=== PATIENT | female | born 1950 | race Caucasian/White ===

== ENCOUNTER → 2020-07-22 11:05 | Outpatient (BNVA) | payer MEDICARE, BC, SELFPAY | PROVIDERS: Family Provider Family Medicine; Referring Provider Family Medicine; Visit Provider Internal Medicine | DX: E11.40 Type 2 diabetes mellitus with diabetic neuropathy, unspecified (principal); E11.65 Type 2 diabetes mellitus with hyperglycemia; E03.9 Hypothyroidism, unspecified; R74.0 Nonspecific elevation of levels of transaminase and lactic acid dehydrogenase [LDH] | CPT/HCPCS: 36415; 84439; 84443; 99204 ==

== ENCOUNTER 2020-07-22 12:11 | Outpatient (CLI) | payer MEDICARE, BC, SELFPAY ==
[2020-07-22 13:10] LABS: Free T4 Free Thyroxine 1.25 ng/dL (0.82-1.77); Thyroid Stimulating Hormone 0.15 uIU/mL (0.27-4.20)
== END 2020-07-22 12:12 | disposition home or self-care (01) ==
LOC: LAB 12:18
PROVIDERS: PCP Family Medicine; Visit Provider Internal Medicine
DX: E11.40 Type 2 diabetes mellitus with diabetic neuropathy, unspecified (principal); E11.65 Type 2 diabetes mellitus with hyperglycemia
CPT/HCPCS: 36415; 84439; 84443

== ENCOUNTER 2020-08-24 11:56 | Emergency (ER) | payer MEDICARE, BC, SELFPAY ==
[2020-08-24 12:12] VITALS: BP 110/77; PULSE 112; RESP 14; TEMP 37.2; O2SAT 95; BMI 33.3
--- NOTE | 2020-08-24 13:16 | W.ED.GENADLT ---
Documented by User: Bailey Snell 08/24/20 16:54 HPI - General Adult General: Chief complaint: General Medical Stated complaint: ACHING DOWN L SIDE BODY Time Seen by Provider: 08/24/20 13:03 Source: patient Mode of arrival: ambulatory Limitations: no limitations History of Present Illness: HPI narrative: 69-year-old female patient presents to the emergency department complaining of pain to her left side. Patient states it starts in her shoulder and goes all the way down to her ankle. Patient states she has a burning sensation to the back of her left leg. Patient also complains of low back pain. Patient denies any injury or trauma. Patient states is been like this for a few weeks and is just progressively gotten worse. Patient denies fever. Patient denies IV drug abuse. Patient denies history of cancer. Patient denies loss of bowel or bladder. Patient denies any numbness or tingling. Associated symptoms: Deny chest pain, dyspnea, headache(s), nausea, rash, palpitations, syncope or vomiting Review of Systems General: Reports: 10 or more systems reviewed and unremarkable except in HPI and below Const: Denies: fever(s) or chills Eyes: Denies: change in vision Card: Denies: chest pain, palpitations, irregular heart rhythm, lightheadedness or syncope Resp: Denies: dyspnea, productive cough, non-productive cough, wheezing or pain on inspiration GI: Denies: abdominal pain, nausea, vomiting, dysphagia, diarrhea or constipation : Denies: flank pain, difficulty voiding, dysuria, urinary frequency or urinary urgency Musc: Reports: back pain and extremity pain Skin/Breast: Denies: rash Neuro: Denies: headache(s) or numbness in extremities Psych: Denies: anxiety, suicidal ideation or homicidal ideation COUNT INCLUDES THE [facility] ED PFSH: Medical History Diabetes Hypothyroid Ovarian cancer Surgical History H/O: hysterectomy History of tonsillectomy Hx of appendectomy Hx of cholecystectomy Family History Sister Cancer uterine/cervix Mother Cancer cervix Social History Smoking and tobacco status: never smoked Alcohol intake: never Physical Exam Const: COMMON NORMALS: no acute distress, average body habitus, patient oriented x3, no limitations, healthy appearing, alert and well nourished HENMT: COMMON NORMALS: normocephalic, atraumatic, hearing grossly normal bilaterally, external ears normal, EAC's normal, TM's normal bilaterally, Normal external nose present, Normal nasal mucous membranes and turbinates present, moist oral mucous membranes, oropharynx normal, dentition normal and gingiva normal HEAD & SCALP: normocephalic and atraumatic NOSE: Normal external nose present and Normal nasal mucous membranes and turbinates present EXTERNAL EAR: Yes external ears normal EXTERNAL AUDITORY CANAL: EAC's normal TYMPANIC MEMBRANE: TM's normal bilaterally Neck/C-Spine: COMMON NORMALS: full ROM, no lymphadenopathy, supple, no meningeal signs, Thyroid normal and No carotid bruits THYROID: Thyroid normal Chest: COMMONS NORMALS: normal inspection of the chest, normal palpation of entire chest wall, normal inspection of the breasts and normal palpation of the breasts Cardio: COMMON NORMALS: regular rate and regular rhythm RATE: regular rate RHYTHM: regular rhythm GI: COMMON NORMALS: Normal to inspection, nondistended, normoactive bowel sounds present, Soft to palpation, non-tender, No hepatosplenomegaly present, no masses and no bruits PALPATION: Yes Soft to palpation and Yes No hepatosplenomegaly present : COMMON NORMALS: Yes no CVA tenderness BLADDER/KIDNEY EXAM: Yes no CVA tenderness and No CVA tenderness Back/Pelvis: COMMON NORMALS: no CVA tenderness, thoracic and lumbar spine normal to inspection and thoraco-lumbar ROM normal GENERAL BACK: No CVA tenderness LUMBAR SPINE/LOWER BACK: Yes normal to inspection, Yes lumbar ROM normal, Yes pain with ROM, No lumbar spinal tenderness, Yes paraspinal muscle tenderness and Yes paraspinal muscle spasm Extremity: COMMON NORMALS: normal to inspection, full ROM, capillary refill normal, no joint enlargement, no clubbing, cyanosis or edema, no calf tenderness and no pedal edema Neuro: COMMON NORMALS: patient oriented x3 SENSORIUM/ORIENTATION: Yes alert MENINGEAL SIGNS: Yes no meningeal signs Psych: COMMON NORMALS: mental status grossly normal, Normal thought process present, cooperative, normal affect, speech normal, activity/motor behavior normal, denies hallucinations, denies homicidal ideation and denies suicidal ideation SPEECH: Yes normal speech THOUGHT PROCESS: Normal thought process present Skin: COMMON NORMALS: no rashes or lesions noted, no wounds, turgor normal, no jaundice, no petechiae and no mottling GENERAL SKIN EXAM: no rashes or lesions noted and turgor normal Course ED course: Report given to jocelin asencio assumed care at this time Vital Signs: Vital signs: Vital Signs Temperature 98.9 F 08/24/20 12:12 Pulse Rate 86 08/24/20 18:06 Respiratory Rate 18 08/24/20 18:06 Blood Pressure 110/77 08/24/20 12:12 Pulse Oximetry 99 08/24/20 18:06 MDM - General Adult Lab Data: Labs: Lab Results 08/24/20 08/24/20 08/24/20 Range/Units 13:30 14:25 14:25 WBC 7.0 (4.0-10.0) 10^3/ uL RBC 4.72 (4.1-5.3) 10^6/u L Hgb 14.1 (11.5-15.3) g/dL Hct 42.4 (37.0-47.0) % MCV 89.8 (81-99) fL MCH 29.9 (28.0-34.0) pg MCHC 33.3 (30.0-36.0) g/dL RDW 11.3 L (12.1-15.1) % Plt Count 243 (130-400) 10^3/c mm MPV 10.6 H (7.4-10.4) fL Neut % (Auto) 69.2 % Lymph % (Auto) 22.9 % [place] % (Auto) 4.7 % Eos % (Auto) 2.3 % Baso % (Auto) 0.6 % Neut # (Auto) 4.84 (1.8-7.7) 10^3/u L Lymph # (Auto) 1.6 (0.8-4.8) 10^3/u L [place] # (Auto) 0.3 (0.2-0.9) 10^3/u L Eos # (Auto) 0.2 (0.0-0.8) 10^3/u L Baso # (Auto) 0.0 (0.0-0.1) 10^3/u L Nucleated RBC % (a uto) 0 % Nucleated RBCs # 0.0 /100WBC Sodium 132 L (136-145) mmol/L Potassium 4.3 (3.5-5.1) mmol/L Chloride 97 L (98-107) mmol/L Carbon Dioxide 23 (22-29) mmol/L Anion Gap 16.3 (5-19) BUN 12 (8-23) mg/dL Creatinine 0.7 (0.5-0.9) mg/dL GFR Calculation 83.2 L (90-130) mL/min Glucose 492 H (65-115) mg/dL Calculated Osmolal ity 296 H (285-295) mOsm/k g Calcium 9.8 (8.5-10.5) mg/dL Total Bilirubin 0.3 (0.15-1.2) mg/dL AST 12 (0-32) U/L ALT 17 (0-33) U/L Alkaline Phosphata se 129 H (35-105) IU/L Total Protein 6.6 (6.6-8.7) g/dL Albumin 3.9 (3.5-5.2) g/dL Globulin 2.7 (1.3-4.6) g/dL Urine Color Yellow (Yellow) Urine Appearance Sl hazy (CLEAR) Urine pH 5 (5-7) Ur Specific Gravit y 1.005 (1.005-1.030) Urine Protein Neg (Negative) Urine Glucose (UA) 4+ H (Normal) Urine Ketones Negative (Negative) Urine Blood Neg (Negative) Urine Nitrate Negative (Negative) Urine Bilirubin Neg (Negative) Urine Urobilinogen Norm (Negative) mg/dL Ur Leukocyte Barbara ase Negative (Negative) Urine RBC None (0-2) /hpf Urine WBC None (0-5) /hpf Ur Squamous Epith Cells 0-4 H (0-5) /hpf Amorphous Sediment Trace /hpf Urine Bacteria Trace (NONE) /hpf Discharge Plan Discharge Patient Disposition: Home 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MEDSUPPLY Qty: 60 RF: 3 zolpidem 10 mg tablet 10 mg PO BEDTIME RF: 0 Discharge Orders: Discharge Order (Routine); Ordered 08/24/20 Ordered By: Jocelin Asencio Referrals: William Chan MD [Primary Care Provider] - Discharge Diet: As Directed and Diabetic Discharge Activity: Increase activity as tolerated Patient Instructions: Hyperglycemia Activity Restrictions/Additional Instructions: Follow-up with medical provider as directed. Take medications. Return to the ER or your medical provider if condition worsens. Please read and understand discharge instructions. If any questions ask please. Discharge Date/Time: 08/24/20 18:06 Coding Level of Care Code ED Fish Cleaner for Chg Fwd Exam Comprehensive Documented by User: CRISTA Duffy 08/24/20 21:28 HPI - General Adult General: Chief complaint: General Medical Stated complaint: ACHING DOWN L SIDE BODY Time Seen by Provider: 08/24/20 13:03 PFSH ED PFSH: Medical History Diabetes Hypothyroid Ovarian cancer Surgical History H/O: hysterectomy History of tonsillectomy Hx of appendectomy Hx of cholecystectomy Family History Sister Cancer uterine/cervix Mother Cancer cervix Social History Smoking and tobacco status: never smoked Alcohol intake: never Course Vital Signs: Vital signs: Vital Signs Temperature 98.9 F 08/24/20 12:12 Pulse Rate 86 08/24/20 18:06 Respiratory Rate 18 08/24/20 18:06 Blood Pressure 110/77 08/24/20 12:12 Pulse Oximetry 99 08/24/20 18:[address] [facility] - General Adult Lab Data: Labs: Lab Results 08/24/20 08/24/20 08/24/20 Range/Units 13:30 14:25 14:25 WBC 7.0 (4.0-10.0) 10^3/ uL RBC 4.72 (4.1-5.3) 10^6/u L Hgb 14.1 (11.5-15.3) g/dL Hct 42.4 (37.0-47.0) % MCV 89.8 (81-99) fL MCH 29.9 (28.0-34.0) pg MCHC 33.3 (30.0-36.0) g/dL RDW 11.3 L (12.1-15.1) % Plt Count 243 (130-400) 10^3/c mm MPV 10.6 H (7.4-10.4) fL Neut % (Auto) 69.2 % Lymph % (Auto) 22.9 % [place] % (Auto) 4.7 % Eos % (Auto) 2.3 % Baso % (Auto) 0.6 % Neut # (Auto) 4.84 (1.8-7.7) 10^3/u L Lymph # (Auto) 1.6 (0.8-4.8) 10^3/u L [place] # (Auto) 0.3 (0.2-0.9) 10^3/u L Eos # (Auto) 0.2 (0.0-0.8) 10^3/u L Baso # (Auto) 0.0 (0.0-0.1) 10^3/u L Nucleated RBC % (a uto) 0 % Nucleated RBCs # 0.0 /100WBC Sodium 132 L (136-145) mmol/L Potassium 4.3 (3.5-5.1) mmol/L Chloride 97 L (98-107) mmol/L Carbon Dioxide 23 (22-29) mmol/L Anion Gap 16.3 (5-19) BUN 12 (8-23) mg/dL Creatinine 0.7 (0.5-0.9) mg/dL GFR Calculation 83.2 L (90-130) mL/min Glucose 492 H (65-115) mg/dL Calculated Osmolal ity 296 H (285-295) mOsm/k g Calcium 9.8 (8.5-10.5) mg/dL Total Bilirubin 0.3 (0.15-1.2) mg/dL AST 12 (0-32) U/L ALT 17 (0-33) U/L Alkaline Phosphata se 129 H (35-105) IU/L Total Protein 6.6 (6.6-8.7) g/dL Albumin 3.9 (3.5-5.2) g/dL Globulin 2.7 (1.3-4.6) g/dL Urine Color Yellow (Yellow) Urine Appearance Sl hazy (CLEAR) Urine pH 5 (5-7) Ur Specific Gravit y 1.005 (1.005-1.030) Urine Protein Neg (Negative) Urine Glucose (UA) 4+ H (Normal) Urine Ketones Negative (Negative) Urine Blood Neg (Negative) Urine Nitrate Negative (Negative) Urine Bilirubin Neg (Negative) Urine Urobilinogen Norm (Negative) mg/dL Ur Leukocyte Barbara ase Negative (Negative) Urine RBC None (0-2) /hpf Urine WBC None (0-5) /hpf Ur Squamous Epith Cells 0-4 H (0-5) /hpf Amorphous Sediment Trace /hpf Urine Bacteria Trace (NONE) /hpf Discharge Plan Discharge Patient Disposition: Home 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MEDSUPPLY Qty: 60 RF: 3 zolpidem 10 mg tablet 10 mg PO BEDTIME RF: 0 Discharge Orders: Discharge Order (Routine); Ordered 08/24/20 Ordered By: Jocelin Asencio Referrals: William Chan MD [Primary Care Provider] - Discharge Diet: As Directed and Diabetic Discharge Activity: Increase activity as tolerated Patient Instructions: Hyperglycemia Activity Restrictions/Additional Instructions: Follow-up with medical provider as directed. Take medications. Return to the ER or your medical provider if condition worsens. Please read and understand discharge instructions. If any questions ask please. Discharge Date/Time: 08/24/20 18:06 Coding Level of Care Code ED Fish Cleaner for Chg Fwd Exam Comprehensive
[2020-08-24] MEDS: dexamethasone 10 mg/mL INJ IM (13:20)
[2020-08-24] MEDS: orphenadrine 30 mg/mL Inj 2 mL 60 MG IM (13:20)
[2020-08-24] MEDS: ketorolac 30 mg/mL INJ IM (13:20)
[2020-08-24] MEDS: ondansetron 4 MG Tablet PO (13:33)
[2020-08-24 14:30] LABS: Add Urine Microscopic? YES; Bilirubin Urine Neg (Negative); Blood Urine Neg (Negative); Glucose Urine UA 4+ (Normal); Ketones Urine Negative (Negative); Leukocyte Esterase Urine Negative (Negative); Nitrate Urine Negative (Negative); Protein Urine Neg (Negative); Specific Gravity, Urine 1.005 (1.005-1.030); Urine Appearance SL Hazy (CLEAR); Urine Color Yellow (Yellow); Urobilinogen Urine Norm (Negative); pH Urine 5 (5-7)
[2020-08-24 14:33] LABS: Add Urine Culture? No; Amorphous Sediment Urine TRACE /hpf; Bacteria Urine TRACE /hpf; Squamous Epithelial Cell Urine 0-4 /hpf (0-5)
[2020-08-24 14:35] LABS: Basophils % 0.6 %; Eosinophils # 0.2 10^3/uL (0.0-0.8); Eosinophils % 2.3 %; Hematocrit 42.4 % (37.0-47.0); Hemoglobin 14.1 g/dL (11.5-15.3); Lymphocytes # 1.6 10^3/uL (0.8-4.8); Lymphocytes % 22.9 %; Mean Corpuscular HGB Conc 33.3 g/dL (30.0-36.0); Mean Corpuscular Hemoglobin 29.9 pg (28.0-34.0); Mean Corpuscular Volume 89.8 fL (81-99); Mean Platelet Volume 10.6 fL (7.4-10.4); Monocytes # 0.3 10^3/uL (0.2-0.9); Monocytes % 4.7 %; Neutrophils # 4.84 10^3/uL (1.8-7.7); Neutrophils % 69.2 %; Nucleated Red Blood Cells % 0 %; Platelet Count 243 10^3/cmm (130-400); Red Blood Count 4.72 10^6/uL (4.1-5.3); Red Cell Distribution Width 11.3 % (12.1-15.1)
[2020-08-24 14:54] LABS: Alanine Aminotransferase 17 U/L (0-33); Albumin Level 3.9 g/dL (3.5-5.2); Alkaline Phosphatase 129 IU/L (35-105); Anion Gap 16.3 (5-19); Aspartate Amino Transferase 12 U/L (0-32); Blood Urea Nitrogen 12 mg/dL (8-23); Calcium 9.8 mg/dL (8.5-10.5); Carbon Dioxide 23 mmol/L (22-29); Chloride 97 mmol/L (98-107); Creatinine Clr Calc Pharmacy 74.8927; Globulin 2.7 g/dL (1.3-4.6); Glomerular Filtration Rate 83.2 mL/min (90-130); Glucose 492 mg/dL (65-115); Osmolality Calculated 296 mOsm/kg (285-295); Potassium 4.3 mmol/L (3.5-5.1); Sodium 132 mmol/L (136-145); Total Bilirubin 0.3 mg/dL (0.15-1.2); Total Protein 6.6 g/dL (6.6-8.7)
[2020-08-24] MEDS: sodium chloride 0.9% 1,000 ML 999 ML IV (15:27)
--- NOTE | 2020-08-24 17:35 | ED_ITS ---
HPI - General Adult General: Chief complaint: General Medical Stated complaint: ACHING DOWN L SIDE BODY Time Seen by Provider: 08/24/20 13:03 Source: patient Mode of arrival: ambulatory Limitations: no limitations PFSH ED PFSH: Medical History Diabetes Hypothyroid Ovarian cancer Surgical History H/O: hysterectomy History of tonsillectomy Hx of appendectomy Hx of cholecystectomy Family History Sister Cancer uterine/cervix Mother Cancer cervix Social History Smoking and tobacco status: never smoked Alcohol intake: never Course Vital Signs: Vital signs: Vital Signs Temperature 98.9 F 08/24/20 12:12 Pulse Rate 86 08/24/20 18:06 Respiratory Rate 18 08/24/20 18:06 Blood Pressure 110/77 08/24/20 12:12 Pulse Oximetry 99 08/24/20 18:06 MDM - General Adult MDM Narrative: Medical decision making narrative: See review of systems physical exam per Bailey Del Castillo FACING SLITTER. Patient requesting go home patient feels much better. Lab Data: Labs: Lab Results 08/24/20 08/24/20 08/24/20 Range/Units 13:30 14:25 14:25 WBC 7.0 (4.0-10.0) 10^3/ uL RBC 4.72 (4.1-5.3) 10^6/u L Hgb 14.1 (11.5-15.3) g/dL Hct 42.4 (37.0-47.0) % MCV 89.8 (81-99) fL MCH 29.9 (28.0-34.0) pg MCHC 33.3 (30.0-36.0) g/dL RDW 11.3 L (12.1-15.1) % Plt Count 243 (130-400) 10^3/c mm MPV 10.6 H (7.4-10.4) fL Neut % (Auto) 69.2 % Lymph % (Auto) 22.9 % [place] % (Auto) 4.7 % Eos % (Auto) 2.3 % Baso % (Auto) 0.6 % Neut # (Auto) 4.84 (1.8-7.7) 10^3/u L Lymph # (Auto) 1.6 (0.8-4.8) 10^3/u L [place] # (Auto) 0.3 (0.2-0.9) 10^3/u L Eos # (Auto) 0.2 (0.0-0.8) 10^3/u L Baso # (Auto) 0.0 (0.0-0.1) 10^3/u L Nucleated RBC % (a uto) 0 % Nucleated RBCs # 0.0 /100WBC Sodium 132 L (136-145) mmol/L Potassium 4.3 (3.5-5.1) mmol/L Chloride 97 L (98-107) mmol/L Carbon Dioxide 23 (22-29) mmol/L Anion Gap 16.3 (5-19) BUN 12 (8-23) mg/dL Creatinine 0.7 (0.5-0.9) mg/dL GFR Calculation 83.2 L (90-130) mL/min Glucose 492 H (65-115) mg/dL Calculated Osmolal ity 296 H (285-295) mOsm/k g Calcium 9.8 (8.5-10.5) mg/dL Total Bilirubin 0.3 (0.15-1.2) mg/dL AST 12 (0-32) U/L ALT 17 (0-33) U/L Alkaline Phosphata se 129 H (35-105) IU/L Total Protein 6.6 (6.6-8.7) g/dL Albumin 3.9 (3.5-5.2) g/dL Globulin 2.7 (1.3-4.6) g/dL Urine Color Yellow (Yellow) Urine Appearance Sl hazy (CLEAR) Urine pH 5 (5-7) Ur Specific Gravit y 1.005 (1.005-1.030) Urine Protein Neg (Negative) Urine Glucose (UA) 4+ H (Normal) Urine Ketones Negative (Negative) Urine Blood Neg (Negative) Urine Nitrate Negative (Negative) Urine Bilirubin Neg (Negative) Urine Urobilinogen Norm (Negative) mg/dL Ur Leukocyte Barbara ase Negative (Negative) Urine RBC None (0-2) /hpf Urine WBC None (0-5) /hpf Ur Squamous Epith Cells 0-4 H (0-5) /hpf Amorphous Sediment Trace /hpf Urine Bacteria Trace (NONE) /hpf Discharge Plan Discharge Patient Disposition: Home 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MEDSUPPLY Qty: 60 RF: 3 zolpidem 10 mg tablet 10 mg PO BEDTIME RF: 0 Discharge Orders: Discharge Order (Routine); Ordered 08/24/20 Ordered By: Aniceto Varela Referrals: William Chan MD [Primary Care Provider] - Discharge Diet: As Directed and Diabetic Discharge Activity: Increase activity as tolerated Patient Instructions: Hyperglycemia Activity Restrictions/Additional Instructions: Follow-up with medical provider as directed. Take medications. Return to the ER or your medical provider if condition worsens. Please read and understand discharge instructions. If any questions ask please. Discharge Date/Time: 08/24/20 18:06 Coding Level of Care Code ED Therapist Radiation for Dev Flood
[2020-08-24 18:06] VITALS: PULSE 86; RESP 18; O2SAT 99
== END 2020-08-24 18:06 | disposition home or self-care (01) ==
PROVIDERS: Registered Nurse; Emergency Provider Nurse Practitioner Family; PCP Family Medicine
DX: E11.40 Type 2 diabetes mellitus with diabetic neuropathy, unspecified (principal); Z79.82 Long term (current) use of aspirin; Z79.4 Long term (current) use of insulin; Z85.43 Personal history of malignant neoplasm of ovary
CPT/HCPCS: 12345; 80053; 81001; 85025; 96360; 96372; 99283; J1100; J1885; J2360; J7030; Q0162

== ENCOUNTER 2020-11-13 15:55 | Emergency (ER) | payer MEDICARE, BC, SELFPAY ==
[2020-11-13 16:01] VITALS: BP 134/82; PULSE 88; RESP 18; TEMP 37.1; O2SAT 94; BMI 29.9
[2020-11-13 16:31] LABS: Basophils # 0.1 10^3/uL (0.0-0.1); Basophils % 0.7 %; Eosinophils # 0.2 10^3/uL (0.0-0.8); Eosinophils % 3.1 %; Hematocrit 42.7 % (37.0-47.0); Hemoglobin 13.8 g/dL (11.5-15.3); Lymphocytes % 29.8 %; Mean Corpuscular HGB Conc 32.3 g/dL (30.0-36.0); Mean Corpuscular Hemoglobin 29.6 pg (28.0-34.0); Mean Corpuscular Volume 91.6 fL (81-99); Mean Platelet Volume 10.3 fL (7.4-10.4); Monocytes # 0.5 10^3/uL (0.2-0.9); Monocytes % 7.5 %; Neutrophils # 3.93 10^3/uL (1.8-7.7); Neutrophils % 58.9 %; Nucleated Red Blood Cells % 0 %; Platelet Count 227 10^3/cmm (130-400); Red Blood Count 4.66 10^6/uL (4.1-5.3); Red Cell Distribution Width 11.9 % (12.1-15.1); White Blood Count 6.7 10^3/uL (4.0-10.0)
[2020-11-13 16:48] LABS: Alanine Aminotransferase 15 U/L (0-33); Albumin Level 4.2 g/dL (3.5-5.2); Alkaline Phosphatase 155 IU/L (35-105); Aspartate Amino Transferase 12 U/L (0-32); Blood Urea Nitrogen 11 mg/dL (8-23); Calcium 9.8 mg/dL (8.5-10.5); Carbon Dioxide 28 mmol/L (22-29); Chloride 100 mmol/L (98-107); Globulin 2.5 g/dL (1.3-4.6); Glomerular Filtration Rate 99.4 mL/min (90-130); Osmolality Calculated 308 mOsm/kg (285-295); Sodium 137 mmol/L (136-145); Total Bilirubin 0.4 mg/dL (0.15-1.2); Total Protein 6.7 g/dL (6.6-8.7)
[2020-11-13 16:49] VITALS: BP 158/88; PULSE 83; RESP 16; O2SAT 93
[2020-11-13 16:51] LABS: Anion Gap 13.1 (5-19); Potassium 4.1 mmol/L (3.5-5.1); Troponin(5th) Baseline 10 ng/L (0-10)
[2020-11-13 16:52] LABS: Glucose 536 mg/dL (65-115)
--- NOTE | 2020-11-13 17:06 | XRR_ITS ---
PROCEDURE INFORMATION: Exam: XR Chest, 1 View Exam date and time: 11/13/2020 5:33 PM Age: 69 years old Clinical indication: Chest pain; Type not specified TECHNIQUE: Imaging protocol: XR of the chest Views: 1 view. COMPARISON: No relevant prior studies available. FINDINGS: Lungs: Unremarkable. No consolidation. Pleural space: Unremarkable. No pleural effusion. No pneumothorax. Heart/Mediastinum: Unremarkable. No cardiomegaly. Bones/joints: Unremarkable. XR/XR chest 1V portable [id number] IMPRESSION: No acute findings.
--- NOTE | 2020-11-13 17:23 | W.ED.CHESTPA ---
Documented by User: Slava Cain DO 11/15/20 05:59 HPI - Chest Pain General: Chief Complaint: Chest Pain Stated Complaint: Chest pain Time Seen by Provider: 11/13/20 16:12 History of Present Illness: HPI narrative: 69-year-old female presents emergency room with complaint of left-sided chest pain radiating down the left arm and left jaw she had nausea diaphoresis and shortness of breath with it she did take 3 or 4 325 mg of aspirin. She did have some indigestion after doing that while she was at home the pain is quite severe now she states it is only into it. She has no known history of heart disease she does have multiple risk factors including diabetes hypertension and obesity. Interestingly chest pain is also mildly reproducible across the left side of the chest. But felt by palpation there is no radiation of the chest discomfort. MD complaint: chest pain Onset (ago): hour(s) Timing of current episode: constant Prior episodes: No Onset: during exertion (Mild exertion) Pain location: left chest Pain radiation: left arm, neck and jaw/teeth Severity: severe Quality: tightness and sharp Relieving factors: rest Exacerbating factors: nothing Associated symptoms: Reports diaphoresis, dyspnea and nausea; Deny abdominal pain, fever(s), leg edema, palpitations, sense of impending doom, syncope or vomiting Treatment prior to arrival: aspirin Review of Systems Const: Reports: diaphoresis; Denies: fever(s) ENMT: Denies: throat pain, ear or mastoid pain, nasal discharge or nasal congestion Card: Denies: palpitations or syncope Resp: Reports: dyspnea GI: Reports: nausea; Denies: abdominal pain or vomiting : Denies: flank pain, difficulty voiding, dysuria, urinary frequency or urinary urgency Skin/Breast: Denies: rash or pruritus PFS ED PFSH: Medical History (Updated 11/13/20 @ 19:25 by Thom De La Cruz MD) Diabetes Hypothyroid Ovarian cancer Uncontrolled type 2 diabetes with neuropathy Surgical History H/O: hysterectomy History of tonsillectomy Hx of appendectomy Hx of cholecystectomy Family History Sister Cancer uterine/cervix Mother Cancer cervix Social History Smoking and tobacco status: never smoked Alcohol intake: never Physical Exam Const: COMMON NORMALS: no acute distress GENERAL APPEARANCE: cooperative and comfortable ORIENTATION/CONSCIOUSNESS: Yes awake, Yes oriented to person, Yes oriented to place and Yes oriented to time HENMT: COMMON NORMALS: normocephalic, atraumatic, hearing grossly normal bilaterally, external ears normal, EAC's normal, TM's normal bilaterally, Normal nasal mucous membranes and turbinates present, moist oral mucous membranes and oropharynx normal HEAD & SCALP: normocephalic and atraumatic NOSE: Normal nasal mucous membranes and turbinates present EXTERNAL EAR: Yes external ears normal EXTERNAL AUDITORY CANAL: EAC's normal TYMPANIC MEMBRANE: TM's normal bilaterally Eye: COMMON NORMALS: Equal, round and reactive pupils present, EOMs intact bilaterally, conjunctivae normal and no scleral icterus CONJUNCTIVA: Yes conjunctivae normal PUPIL: Yes Equal, round and reactive pupils present Neck/C-Spine: COMMON NORMALS: full ROM, no lymphadenopathy, supple and no JVD Lymph: LYMPHATIC: no lymphadenopathy noted and no lymphedema noted Resp: COMMON NORMALS: normal respiratory effort, No retractions, No use of accessory muscles and clear to auscultation bilaterally AUSCULTATION: clear to auscultation bilaterally Cardio: COMMON NORMALS: no JVD, regular rate, regular rhythm and No murmurs present (Cardio) RATE: regular rate RHYTHM: regular rhythm GI: COMMON NORMALS: Soft to palpation and No hepatosplenomegaly present AUSCULTATION: Yes normoactive bowel sounds PALPATION: Yes Soft to palpation, No Tenderness to palpation present (GI), No Guarding due to palpation present (GI) and Yes No hepatosplenomegaly present Extremity: COMMON NORMALS: normal to inspection, capillary refill normal, no clubbing, cyanosis or edema, no calf tenderness and no pedal edema Neuro: SENSORIUM/ORIENTATION: Yes oriented to person, Yes oriented to place and Yes oriented to time Skin: COMMON NORMALS: no rashes or lesions noted GENERAL SKIN EXAM: no rashes or lesions noted Course Vital Signs: Vital signs: Vital Signs Temperature 98.8 F 11/13/20 16:01 Pulse Rate 78 11/13/20 19:51 Respiratory Rate 16 11/13/20 19:51 Blood Pressure 139/78 11/13/20 19:51 Pulse Oximetry 98 11/13/20 19:51 MDM - Chest Pain MDM Narrative: Medical decision making narrative: Care turned over to Dr. Dallas at change of shift see his note for final diagnosis and disposition Lab Data: Labs: Lab Results 11/13/20 11/13/20 11/13/20 Range/Units 16:22 16:22 16:22 WBC 6.7 (4.0-10.0) 10^3/ uL RBC 4.66 (4.1-5.3) 10^6/u L Hgb 13.8 (11.5-15.3) g/dL Hct 42.7 (37.0-47.0) % MCV 91.6 (81-99) fL MCH 29.6 (28.0-34.0) pg MCHC 32.3 (30.0-36.0) g/dL RDW 11.9 L (12.1-15.1) % Plt Count 227 (130-400) 10^3/c mm MPV 10.3 (7.4-10.4) fL Neut % (Auto) 58.9 % Lymph % (Auto) 29.8 % [place] % (Auto) 7.5 % Eos % (Auto) 3.1 % Baso % (Auto) 0.7 % Neut # (Auto) 3.93 (1.8-7.7) 10^3/u L Lymph # (Auto) 2.0 (0.8-4.8) 10^3/u L [place] # (Auto) 0.5 (0.2-0.9) 10^3/u L Eos # (Auto) 0.2 (0.0-0.8) 10^3/u L Baso # (Auto) 0.1 (0.0-0.1) 10^3/u L Nucleated RBC % (a uto) 0 % Nucleated RBCs # 0.0 /100WBC Sodium 137 (136-145) mmol/L Potassium 4.1 (3.5-5.1) mmol/L Chloride 100 (98-107) mmol/L Carbon Dioxide 28 (22-29) mmol/L Anion Gap 13.1 (5-19) BUN 11 (8-23) mg/dL Creatinine 0.6 (0.5-0.9) mg/dL GFR Calculation 99.4 (90-130) mL/min Glucose 536 H* (65-115) mg/dL POC Glucose (70-110) mg/dL Calculated Osmolal ity 308 H (285-295) mOsm/k g Calcium 9.8 (8.5-10.5) mg/dL Total Bilirubin 0.4 (0.15-1.2) mg/dL AST 12 (0-32) U/L ALT 15 (0-33) U/L Alkaline Phosphata se 155 H (35-105) IU/L Troponin T Baselin e 10 (0-10) ng/L Troponin T 120 Min [place] (0-10) ng/L Delta Troponin T (0-10) ABS# Total Protein 6.7 (6.6-8.7) g/dL Albumin 4.2 (3.5-5.2) g/dL Globulin 2.5 (1.3-4.6) g/dL 11/13/20 11/13/20 Range/Units 18:22 19:05 WBC (4.0-10.0) 10^3/ uL RBC (4.1-5.3) 10^6/u L Hgb (11.5-15.3) g/dL Hct (37.0-47.0) % MCV (81-99) fL MCH (28.0-34.0) pg MCHC (30.0-36.0) g/dL RDW (12.1-15.1) % Plt Count (130-400) 10^3/c mm MPV (7.4-10.4) fL Neut % (Auto) % Lymph % (Auto) % [place] % (Auto) % Eos % (Auto) % Baso % (Auto) % Neut # (Auto) (1.8-7.7) 10^3/u L Lymph # (Auto) (0.8-4.8) 10^3/u L [place] # (Auto) (0.2-0.9) 10^3/u L Eos # (Auto) (0.0-0.8) 10^3/u L Baso # (Auto) (0.0-0.1) 10^3/u L Nucleated RBC % (a uto) % Nucleated RBCs # /100WBC Sodium (136-145) mmol/L Potassium (3.5-5.1) mmol/L Chloride (98-107) mmol/L Carbon Dioxide (22-29) mmol/L Anion Gap (5-19) BUN (8-23) mg/dL Creatinine (0.5-0.9) mg/dL GFR Calculation (90-130) mL/min Glucose (65-115) mg/dL POC Glucose 231 H (70-110) mg/dL Calculated Osmolal ity (285-295) mOsm/k g Calcium (8.5-10.5) mg/dL Total Bilirubin (0.15-1.2) mg/dL AST (0-32) U/L ALT (0-33) U/L Alkaline Phosphata se (35-105) IU/L Troponin T Baselin e (0-10) ng/L Troponin T 120 [place] 24.95 H (0-10) ng/L Delta Troponin T 14.95 H* (0-10) ABS# Total Protein (6.6-8.7) g/dL Albumin (3.5-5.2) g/dL Globulin (1.3-4.6) g/dL Discharge Plan Discharge Patient Disposition: Left Against Medical Advice Clinical Impression: Non-ST elevation IA (NSTEMI) Condition: Stable Prescriptions: No Action pantoprazole 20 mg tablet,delayed release (DR/EC) 20 mg PO DAILY@07 RF: 0 (DME) blood-glucose meter Misc See Rx Instructions .ROUTE .MEDSUPPLY Qty: 1 RF: 0 (DME) Advocate Redi-Code Strip See Rx Instructions .ROUTE .MEDSUPPLY Qty: 60 RF: 3 levothyroxine 175 mcg tablet 175 mcg PO DAILY@07 RF: 0 aspirin 325 mg Tablet 325 mg PO PRN RF: 0 hydrocodone-acetaminophen 10-325 mg tablet 1 tab PO Q6H PRN (Reason: Pain) RF: 0 baclofen 10 mg tablet 10 mg PO BID PRN (Reason: Muscle Spasm) RF: 0 glimepiride 4 mg tablet 4 mg PO BID@16 RF: 0 Lantus Solostar U-100 Insulin 100 unit/mL (3 mL) insulin pen 10 unit SUBCUT DAILY@07 RF: 0 zolpidem 10 mg tablet 10 mg PO BEDTIME PRN (Reason: Sleep) RF: 0 Referrals: William Chan MD [Primary Care Provider] - 1-3 days Discharge Diet: Advance as tolerated Discharge Activity: Resume usual activity Patient Instructions: Chest Pain (ED) Coding Level of Care Code ED [facility] Fwd Exam Comprehensive Documented by User: Kiersten Dallsa MD 11/13/20 19:44 HPI - Chest Pain General: Chief Complaint: Chest Pain Stated Complaint: Chest pain Time Seen by Provider: 11/13/20 16:12 PFSH ED PFSH: Medical History (Updated 11/13/20 @ 19:25 by Thom De La Cruz MD) Diabetes Hypothyroid Ovarian cancer Uncontrolled type 2 diabetes with neuropathy Surgical History H/O: hysterectomy History of tonsillectomy Hx of appendectomy Hx of cholecystectomy Family History Sister Cancer uterine/cervix Mother Cancer cervix Social History Smoking and tobacco status: never smoked Alcohol intake: never Course Vital Signs: Vital signs: Vital Signs Temperature 98.8 F 11/13/20 16:01 Pulse Rate 78 11/13/20 19:51 Respiratory Rate 16 11/13/20 19:51 Blood Pressure 139/78 11/13/20 19:51 Pulse Oximetry 98 11/13/20 19:51 MDM - Chest Pain MDM Narrative: Medical decision making narrative: Patient presents with chest pain. She does have a elevation of her 2-hour troponin. Patient's been pain-free here. I spoke to the hospitalist and will admit for ACS rule out. Lab Data: Labs: Lab Results 11/13/20 11/13/20 11/13/20 Range/Units 16:22 16:22 16:22 WBC 6.7 (4.0-10.0) 10^3/ uL RBC 4.66 (4.1-5.3) 10^6/u L Hgb 13.8 (11.5-15.3) g/dL Hct 42.7 (37.0-47.0) % MCV 91.6 (81-99) fL MCH 29.6 (28.0-34.0) pg MCHC 32.3 (30.0-36.0) g/dL RDW 11.9 L (12.1-15.1) % Plt Count 227 (130-400) 10^3/c mm MPV 10.3 (7.4-10.4) fL Neut % (Auto) 58.9 % Lymph % (Auto) 29.8 % [place] % (Auto) 7.5 % Eos % (Auto) 3.1 % Baso % (Auto) 0.7 % Neut # (Auto) 3.93 (1.8-7.7) 10^3/u L Lymph # (Auto) 2.0 (0.8-4.8) 10^3/u L [place] # (Auto) 0.5 (0.2-0.9) 10^3/u L Eos # (Auto) 0.2 (0.0-0.8) 10^3/u L Baso # (Auto) 0.1 (0.0-0.1) 10^3/u L Nucleated RBC % (a uto) 0 % Nucleated RBCs # 0.0 /100WBC Sodium 137 (136-145) mmol/L Potassium 4.1 (3.5-5.1) mmol/L Chloride 100 (98-107) mmol/L Carbon Dioxide 28 (22-29) mmol/L Anion Gap 13.1 (5-19) BUN 11 (8-23) mg/dL Creatinine 0.6 (0.5-0.9) mg/dL GFR Calculation 99.4 (90-130) mL/min Glucose 536 H* (65-115) mg/dL POC Glucose (70-110) mg/dL Calculated Osmolal ity 308 H (285-295) mOsm/k g Calcium 9.8 (8.5-10.5) mg/dL Total Bilirubin 0.4 (0.15-1.2) mg/dL AST 12 (0-32) U/L ALT 15 (0-33) U/L Alkaline Phosphata se 155 H (35-105) IU/L Troponin T Baselin e 10 (0-10) ng/L Troponin T 120 Min [place] (0-10) ng/L Delta Troponin T (0-10) ABS# Total Protein 6.7 (6.6-8.7) g/dL Albumin 4.2 (3.5-5.2) g/dL Globulin 2.5 (1.3-4.6) g/dL 11/13/20 11/13/20 Range/Units 18:22 19:05 WBC (4.0-10.0) 10^3/ uL RBC (4.1-5.3) 10^6/u L Hgb (11.5-15.3) g/dL Hct (37.0-47.0) % MCV (81-99) fL MCH (28.0-34.0) pg MCHC (30.0-36.0) g/dL RDW (12.1-15.1) % Plt Count (130-400) 10^3/c mm MPV (7.4-10.4) fL Neut % (Auto) % Lymph % (Auto) % [place] % (Auto) % Eos % (Auto) % Baso % (Auto) % Neut # (Auto) (1.8-7.7) 10^3/u L Lymph # (Auto) (0.8-4.8) 10^3/u L [place] # (Auto) (0.2-0.9) 10^3/u L Eos # (Auto) (0.0-0.8) 10^3/u L Baso # (Auto) (0.0-0.1) 10^3/u L Nucleated RBC % (a uto) % Nucleated RBCs # /100WBC Sodium (136-145) mmol/L Potassium (3.5-5.1) mmol/L Chloride (98-107) mmol/L Carbon Dioxide (22-29) mmol/L Anion Gap (5-19) BUN (8-23) mg/dL Creatinine (0.5-0.9) mg/dL GFR Calculation (90-130) mL/min Glucose (65-115) mg/dL POC Glucose 231 H (70-110) mg/dL Calculated Osmolal ity (285-295) mOsm/k g Calcium (8.5-10.5) mg/dL Total Bilirubin (0.15-1.2) mg/dL AST (0-32) U/L ALT (0-33) U/L Alkaline Phosphata se (35-105) IU/L Troponin T Baselin e (0-10) ng/L Troponin T 120 [address] [place] 24.95 H (0-10) ng/L Delta Troponin T 14.95 H* (0-10) ABS# Total Protein (6.6-8.7) g/dL Albumin (3.5-5.2) g/dL Globulin (1.3-4.6) g/dL EKG Data^: EKG 2: Attestation: I personally reviewed and interpreted this EKG as follows: EKG interpretation date: 11/13/20 EKG interpretation time: 18:52 Interpretation: nsr hr [address] or t wave abnormalities qrs 88 qtc 412 Discharge Plan Discharge Patient Disposition: Left Against Medical Advice Clinical Impression: Non-ST elevation IA (NSTEMI) Condition: Stable Prescriptions: No Action pantoprazole 20 mg tablet,delayed release (DR/EC) 20 mg PO DAILY@07 RF: 0 (DME) blood-glucose meter Misc See Rx Instructions .ROUTE .MEDSUPPLY Qty: 1 RF: 0 (DME) Advocate Redi-Code Strip See Rx Instructions .ROUTE .MEDSUPPLY Qty: 60 RF: 3 levothyroxine 175 mcg tablet 175 mcg PO DAILY@07 RF: 0 aspirin 325 mg Tablet 325 mg PO PRN RF: 0 hydrocodone-acetaminophen 10-325 mg tablet 1 tab PO Q6H PRN (Reason: Pain) RF: 0 baclofen 10 mg tablet 10 mg PO BID PRN (Reason: Muscle Spasm) RF: 0 glimepiride 4 mg tablet 4 mg PO BID@16 RF: 0 Lantus Solostar U-100 Insulin 100 unit/mL (3 mL) insulin pen 10 unit SUBCUT DAILY@07 RF: 0 zolpidem 10 mg tablet 10 mg PO BEDTIME PRN (Reason: Sleep) RF: 0 Referrals: William Chan MD [Primary Care Provider] - 1-3 days Discharge Diet: Advance as tolerated Discharge Activity: Resume usual activity Patient Instructions: Chest Pain (ED) Coding Level of Care Code ED [facility] Fwd Exam Comprehensive
[2020-11-13] MEDS: insulin regular-human 100 units/1 mL 10 UNIT IVP (17:45)
[2020-11-13] MEDS: morphine 4 mg/mL SDV 1 mL IVP (17:53)
[2020-11-13] MEDS: ondansetron 2 mg/ML SDV 2 mL 4 MG IVP (17:53)
[2020-11-13] MEDS: nitroglycerin 1 gm/inch oint Pkt 1 INCH TOPICAL (17:53)
[2020-11-13 18:00] VITALS: BP 146/81; PULSE 80; RESP 16; O2SAT 94
--- NOTE | 2020-11-13 18:12 | ECG_ITS ---
[facility] Test Date: 2020-11-13 Pat Name: Yasmani Teixeira Department: Room: Gender: Female Sight Effects Specialist: : 1950 Requested By: Slava Grijalva Order Number: [id number] Ryder MD: Nguyen Swanson M.D. Measurements Intervals [place] Rate: 77 P: 48 MA: 156 QRS: -9 QRSD: 88 T: 79 QT: 380 QTc: 432 Interpretive Statements SINUS RHYTHM NONSPECIFIC T-WAVE ABNORMALITY No previous ECG available for comparison Electronically Signed On 11-16-2020 10:03:53 HOME AGENT by Nguyen Swanson M.D. [id number]
[2020-11-13 18:56] LABS: Troponin 5 2HR 24.95 ng/L (0-10)
--- NOTE | 2020-11-13 19:06 | PC.NURSE ---
Blood glucose is 231, nurse and doctor are aware
[2020-11-13 19:08] LABS: Glucose Point of Care 231 mg/dL (70-110)
[2020-11-13 19:10] LABS: Troponin 5 2HR Delta 14.95 ABS# (0-10)
--- NOTE | 2020-11-13 19:25 | PM.HP ---
Providers/Chief Complaint Primary Care Provider: William Chan MD Chief Complaint: Heart Attack? History of Present Illness Yasmani Teixeira is a 69 year old female who has history of poorly controlled type 2 diabetes, hypothyroidism, hypertension, dyslipidemia, presented today with chief complaint of chest pain. For type 2 diabetes she has started seeing charge out clerk. Her recent A1c was around 11.7, patient is not sure for most of her medications her insulin regimen was changed to Lantus 10 units in the morning with instructions how to titrate, glipizide was also added. Medications/Allergies Home Medications Medication Instructions Recorded Confirmed Last Taken Type blood sugar diagnostic #60 each 07/22/20 11/13/20 Unknown Rx blood-glucose meter #1 each 07/22/20 11/13/20 Unknown Rx pantoprazole 20 mg tablet,delayed 20 mg PO DAILY@07 tab 07/22/20 11/13/20 11/13/20 History release zolpidem 10 mg PO BEDTIME PRN 08/24/20 11/13/20 08/23/20 History aspirin 325 mg PO PRN 11/13/20 11/13/20 11/13/20 History 3 tabs baclofen 10 mg PO BID PRN 11/13/20 11/13/20 Unknown History glimepiride 4 mg PO BID@16 11/13/20 11/13/20 11/12/20 History pt takes 1 tab daily hydrocodone-acetaminophen 1 tab PO Q6H PRN 11/13/20 11/13/20 11/12/20 History insulin glargine [Lantus Solostar 10 unit SUBCUT DAILY@11/13/20 11/13/20 11/13/20 History U-100 Insulin] levothyroxine 175 mcg PO DAILY@07 11/13/20 11/13/20 11/13/20 History Allergies Allergy/AdvReac Type Severity Reaction Status Date / Time codeine Allergy ADR-Abdominal Verified 11/13/20 17:00 Pain PFSH Acute PFSH: Medical History (Updated 11/13/20 @ 19:25 by Thom De La Cruz MD) Diabetes Hypothyroid Ovarian cancer Uncontrolled type 2 diabetes with neuropathy Surgical History H/O: hysterectomy History of tonsillectomy Hx of appendectomy Hx of cholecystectomy Family History Sister Cancer uterine/cervix Mother Cancer cervix Social History Smoking and tobacco status: never smoked Alcohol intake: never Vitals/I&O/Wt Last Vital Signs Temp 98.8 F 11/13/20 16:01 Pulse 80 11/13/20 18:00 Resp 16 11/13/20 18:00 BP 146/81 11/13/20 18:00 Pulse Ox 94 11/13/20 18:00 Weight last 48 hrs Weight 81.647 kg Data : 11/13/20 16:22 11/13/20 16:22 A&P Assessment and plan (1) Non-ST elevation CT (NSTEMI): Status: Acute Coding Level of Care Code Acute Food Demonstrator for [facility] Fwd Diagnoses Non-ST elevation CT (NSTEMI) I21.4
--- NOTE | 2020-11-13 19:50 | PC.NURSE ---
patient requested to speak to MD, patient then decided to AMA, this RN had patient sign AMA form, patient was informed of risks of leaving AMA
[2020-11-13 19:51] VITALS: BP 139/78; PULSE 78; RESP 16; O2SAT 98
== END 2020-11-13 19:52 | disposition left against medical advice (07) ==
PROVIDERS: Family Medicine; Emergency Provider Emergency Medicine; PCP Family Medicine
DX: I21.4 Non-ST elevation (NSTEMI) myocardial infarction (principal); Z79.82 Long term (current) use of aspirin; Z79.4 Long term (current) use of insulin; E11.40 Type 2 diabetes mellitus with diabetic neuropathy, unspecified; Z85.43 Personal history of malignant neoplasm of ovary
CPT/HCPCS: 12345; 36416; 71045; 80053; 82962; 84484; 85025; 93005; 96374; 96375; 99283; 99284; J1815; J2270; J2405

== ENCOUNTER 2020-12-05 21:56 | Inpatient (IN) | payer MEDICARE, BC, SELFPAY ==
[2020-12-05] VITALS (10 sets, daily range): BP systolic 116–176; BP diastolic 73–101; PULSE 76–110; RESP 16–20; TEMP 36.8; O2SAT 91–97; BMI 29.9
--- NOTE | 2020-12-05 22:01 | XRR_ITS ---
PROCEDURE INFORMATION: Exam: XR Chest, 1 View Exam date and time: 12/05/2020 10:15 PM Age: 70 years old Clinical indication: Chest pain; Patient HX: Cp (tight & heavy) w/ left arm pain TECHNIQUE: Imaging protocol: XR of the chest Views: 1 view. COMPARISON: CR XR chest 1V portable [id number] 11/13/2020 5:22 PM FINDINGS: Lungs: No consolidative pulmonary infiltrate noted. Pleural space: No pleural effusion. No pneumothorax. Heart/Mediastinum: No cardiomegaly. Bones/joints: Mild degenerative spine changes. XR/XR chest 1V portable [id number] IMPRESSION: 1. No consolidative pulmonary infiltrate noted. 2. There is no interval change from the prior examination.
--- NOTE | 2020-12-05 22:01 | ECG_ITS ---
[facility] Test Date: 2020-12-05 Pat Name: Yasmani Teixeira Department: Room: Gender: Female Epic Cupid Analyst: : 1950 Requested By: Heather Grijalva Order Number: [id number] Ryder MD: Rey Denis M.D. Measurements Intervals [place] Rate: 104 P: 55 FL: 150 QRS: 25 QRSD: 92 T: 58 QT: 332 QTc: 438 Interpretive Statements SINUS TACHYCARDIA MODERATE ST DEPRESSION [0.05+ mV ST DEPRESSION] Compared to ECG 11/13/2020 18:52:20 ST (T wave) deviation now present Sinus rhythm no longer present T-wave abnormality no longer present Electronically Signed On 12-07-2020 9:16:06 HVAC COMMERCIAL SALESPERSON by Rey Denis M.D. [id number]
--- NOTE | 2020-12-05 22:10 | PC.NURSE ---
xray in room
--- NOTE | 2020-12-05 22:13 | ED_ITS ---
HPI - Chest Pain General: Chief Complaint: Chest Pain Stated Complaint: cp Time Seen by Provider: 12/05/20 22:00 History of Present Illness: HPI narrative: This patient is a 70-year-old female who comes in today with chest pain. She said it started about an hour ago and radiates to her left arm. She had an episode of vomiting. She feels short of breath. She was at rest when the pain started. Nothing makes it better. It is worse when she takes a deep breath. She was seen here on [facility] and had a positive troponin and a positive delta troponin. She was going to be admitted but then signed out AGAINST MEDICAL ADVICE. She said she did not want to be admitted under observation status. She was post to go for an outpatient stress test but developed this chest pain and came back to the ER. She is diabetic. She has no prior history of heart attacks. MD complaint: chest pain Pertinent past history: prior ID (2 weeks ago, left AMA) Onset (ago): hour(s) (1) Timing of current episode: constant Prior episodes: Yes Onset: during rest Pain location: left chest Pain radiation: left arm Severity: severe Quality: aching, heaviness and similar to prior ID Relieving factors: nothing Exacerbating factors: inspiration Associated symptoms: Reports dyspnea, nausea and vomiting; Deny fever(s) Review of Systems General: Reports: 10 or more systems reviewed and unremarkable except in HPI and below Const: Denies: fever(s), chills, fatigue or malaise Eyes: Denies: change in vision ENMT: Denies: odynophagia Card: Denies: chest pain or swelling of feet/ankles Resp: Reports: dyspnea GI: Reports: nausea and vomiting : Denies: flank pain or difficulty voiding Musc: Denies: neck pain or back pain Skin/Breast: Denies: rash Neuro: Denies: headache(s), numbness in extremities or weakness in extremities Cristóbal/Lymph: Denies: easy bruising or easy bleeding PFS ED PFSH: Medical History Diabetes Hypothyroid Ovarian cancer Uncontrolled type 2 diabetes with neuropathy Surgical History H/O: hysterectomy History of tonsillectomy Hx of appendectomy Hx of cholecystectomy Family History Sister Cancer uterine/cervix Mother Cancer cervix Social History Smoking and tobacco status: never smoked Alcohol intake: never Physical Exam Const: COMMON NORMALS: patient oriented x3, no limitations and alert GENERAL APPEARANCE: cooperative and in distress HENMT: HEAD & SCALP: normal to inspection FACE & SINUS: normal facial exam Eye: GENERAL EYE: appearance normal, both eyes and all related structures Neck/C-Spine: COMMON NORMALS: supple, no meningeal signs and no JVD Chest: COMMONS NORMALS: normal inspection of the chest Resp: COMMON NORMALS: normal respiratory effort, No use of accessory muscles and clear to auscultation bilaterally AUSCULTATION: clear to auscultation bilaterally Cardio: COMMON NORMALS: no JVD, regular rate, regular rhythm and No murmurs present (Cardio) RATE: regular rate RHYTHM: regular rhythm GI: COMMON NORMALS: Normal to inspection, nondistended, normoactive bowel sounds present, Soft to palpation and non-tender INSPECTION: Yes normal to inspection AUSCULTATION: Yes normoactive bowel sounds PALPATION: Yes Soft to palpation Back/Pelvis: COMMON NORMALS: thoracic and lumbar spine normal to inspection Extremity: COMMON NORMALS: normal to inspection Neuro: COMMON NORMALS: patient oriented x3, moves all extremities, no focal motor deficits and no sensory deficits noted SENSORIUM/ORIENTATION: Yes alert MENINGEAL SIGNS: Yes no meningeal signs Psych: COMMON NORMALS: mental status grossly normal, cooperative and normal affect Skin: COMMON NORMALS: no rashes or lesions noted and turgor normal GENERAL SKIN EXAM: no rashes or lesions noted and turgor normal Course ED course: Troponin slightly above normal on the initial draw. EKG abnormal and dynamic. Pain gone after 3 nitros. Admit to hospitalist for further evaluation. Vital Signs: Vital signs: Vital Signs Temperature 98.2 F 12/05/20 22:04 Pulse Rate 79 12/06/20 00:03 Respiratory Rate 17 12/05/20 23:16 Blood Pressure 144/86 12/06/20 00:03 Pulse Oximetry 96 12/06/20 00:03 MDM - Chest Pain MDM Narrative: Medical decision making narrative: unstable angina, angina, NSTEMI Differential Diagnosis: Cardiac arrest differential diagnosis: Likely acute myocardial infarction Lab Data: Labs: Lab Results 12/05/20 12/05/20 12/05/20 Range/Units 22:28 22:28 22:28 WBC 7.4 (4.0-10.0) 10^3/ uL RBC 4.95 (4.1-5.3) 10^6/u L Hgb 14.6 (11.5-15.3) g/dL Hct 44.0 (37.0-47.0) % MCV 88.9 (81-99) fL MCH 29.5 (28.0-34.0) pg MCHC 33.2 (30.0-36.0) g/dL RDW 11.6 L (12.1-15.1) % Plt Count 296 (130-400) 10^3/c mm MPV 9.9 (7.4-10.4) fL Neut % (Auto) 48.2 % Lymph % (Auto) 40.8 % Garrard % (Auto) 7.2 % Eos % (Auto) 3.2 % Baso % (Auto) 0.5 % Neut # (Auto) 3.56 (1.8-7.7) 10^3/u L Lymph # (Auto) 3.0 (0.8-4.8) 10^3/u L Garrard # (Auto) 0.5 (0.2-0.9) 10^3/u L Eos # (Auto) 0.2 (0.0-0.8) 10^3/u L Baso # (Auto) 0.0 (0.0-0.1) 10^3/u L Nucleated RBC % (a uto) 0 % Nucleated RBCs # 0.0 /100WBC PT 12.10 (12.1-14.9) SECO NDS INR 0.87 (0.8-1.2) Sodium 137 (136-145) mmol/L Potassium 4.5 (3.5-5.1) mmol/L Chloride 101 (98-107) mmol/L Carbon Dioxide 25 (22-29) mmol/L Anion Gap 15.5 (5-19) BUN 15 (8-23) mg/dL Creatinine 0.6 (0.5-0.9) mg/dL GFR Calculation 99.1 (90-130) mL/min Glucose 408 H (65-115) mg/dL Calculated Osmolal ity 302 H (285-295) mOsm/k g Calcium 9.7 (8.5-10.5) mg/dL Total Bilirubin 0.2 (0.15-1.2) mg/dL AST 11 (0-32) U/L ALT 14 (0-33) U/L Alkaline Phosphata se 136 H (35-105) IU/L Troponin T Baselin e (0-10) ng/L NT-Pro-B Natriuret Pep 41 (0-125) pg/mL Total Protein 6.5 L (6.6-8.7) g/dL Albumin 3.9 (3.5-5.2) g/dL Globulin 2.6 (1.3-4.6) g/dL Lipase 27 (13-60) U/L 12/05/20 Range/Units 22:28 WBC (4.0-10.0) 10^3/ uL RBC (4.1-5.3) 10^6/u L Hgb (11.5-15.3) g/dL Hct (37.0-47.0) % MCV (81-99) fL MCH (28.0-34.0) pg MCHC (30.0-36.0) g/dL RDW (12.1-15.1) % Plt Count (130-400) 10^3/c mm MPV (7.4-10.4) fL Neut % (Auto) % Lymph % (Auto) % Garrard % (Auto) % Eos % (Auto) % Baso % (Auto) % Neut # (Auto) (1.8-7.7) 10^3/u L Lymph # (Auto) (0.8-4.8) 10^3/u L Garrard # (Auto) (0.2-0.9) 10^3/u L Eos # (Auto) (0.0-0.8) 10^3/u L Baso # (Auto) (0.0-0.1) 10^3/u L Nucleated RBC % (a uto) % Nucleated RBCs # /100WBC PT (12.1-14.9) SECO NDS INR (0.8-1.2) Sodium (136-145) mmol/L Potassium (3.5-5.1) mmol/L Chloride (98-107) mmol/L Carbon Dioxide (22-29) mmol/L Anion Gap (5-19) BUN (8-23) mg/dL Creatinine (0.5-0.9) mg/dL GFR Calculation (90-130) mL/min Glucose (65-115) mg/dL Calculated Osmolal ity (285-295) mOsm/k g Calcium (8.5-10.5) mg/dL Total Bilirubin (0.15-1.2) mg/dL AST (0-32) U/L ALT (0-33) U/L Alkaline Phosphata se (35-105) IU/L Troponin T Baselin e 13 H (0-10) ng/L NT-Pro-B Natriuret Pep (0-125) pg/mL Total Protein (6.6-8.7) g/dL Albumin (3.5-5.2) g/dL Globulin (1.3-4.6) g/dL Lipase (13-60) U/L EKG Data^: EKG 1: EKG interpretation date: 12/05/20 EKG interpretation time: 22:16 Interpretation: Rate of 104. ST depression in the inferior and V5 and V6. Discharge Plan Discharge Prescriptions: No Action pantoprazole 20 mg tablet,delayed release (DR/EC) 20 mg PO DAILY@07 RF: 0 (DME) blood-glucose meter Misc See Rx Instructions .ROUTE .MEDSUPPLY Qty: 1 RF: 0 (DME) Advocate Redi-Code Strip See Rx Instructions .ROUTE .MEDSUPPLY Qty: 60 RF: 3 levothyroxine 175 mcg tablet 175 mcg PO DAILY@07 RF: 0 aspirin 325 mg Tablet 325 mg PO PRN RF: 0 hydrocodone-acetaminophen 10-325 mg tablet 1 tab PO Q6H PRN (Reason: Pain) RF: 0 baclofen 10 mg tablet 10 mg PO BID PRN (Reason: Muscle Spasm) RF: 0 glimepiride 4 mg tablet 4 mg PO BID@16 RF: 0 Lantus Solostar U-100 Insulin 100 unit/mL (3 mL) insulin pen 10 unit SUBCUT DAILY@07 RF: 0 zolpidem 10 mg tablet 10 mg PO BEDTIME PRN (Reason: Sleep) RF: 0 Coding Level of Care Code ED Fur Grader for Chg Fwd Exam Comprehensive
[2020-12-05 22:38] LABS: Basophils % 0.5 %; Eosinophils # 0.2 10^3/uL (0.0-0.8); Eosinophils % 3.2 %; Hemoglobin 14.6 g/dL (11.5-15.3); Lymphocytes % 40.8 %; Mean Corpuscular HGB Conc 33.2 g/dL (30.0-36.0); Mean Corpuscular Hemoglobin 29.5 pg (28.0-34.0); Mean Corpuscular Volume 88.9 fL (81-99); Mean Platelet Volume 9.9 fL (7.4-10.4); Monocytes # 0.5 10^3/uL (0.2-0.9); Monocytes % 7.2 %; Neutrophils # 3.56 10^3/uL (1.8-7.7); Neutrophils % 48.2 %; Nucleated Red Blood Cells % 0 %; Platelet Count 296 10^3/cmm (130-400); Red Blood Count 4.95 10^6/uL (4.1-5.3); Red Cell Distribution Width 11.6 % (12.1-15.1); White Blood Count 7.4 10^3/uL (4.0-10.0)
[2020-12-05] MEDS: nitroglycerin 0.4 mg sublingual Tablet SUBLINGUAL (22:41)
[2020-12-05 22:50] LABS: INR 0.87 (0.8-1.2)
[2020-12-05] MEDS: ondansetron 2 mg/ML SDV 2 mL 4 MG IVP (22:51)
[2020-12-05 22:58] LABS: Troponin(5th) Baseline 13 ng/L (0-10)
--- NOTE | 2020-12-05 23:05 | ECG_ITS ---
[facility] Test Date: 2020-12-05 Pat Name: Yasmani Teixeira Department: Room: Gender: Female Computer Systems Information Director: : 1950 Requested By: Heather Grijalva Order Number: [id number] Ryder MD: Rey Denis M.D. Measurements Intervals [place] Rate: 108 P: 36 NH: 128 QRS: -18 QRSD: 88 T: 96 QT: 339 QTc: 456 Interpretive Statements SINUS TACHYCARDIA POSSIBLE ANTERIOR MYOCARDIAL INFARCTION , PROBABLY OLD [30 ms Q WAVE IN V3/V4, OR R < 0.2 mV IN V4] INFERIOR MYOCARDIAL INFARCTION , PROBABLY OLD [40+ ms Q WAVE AND/OR ST/T ABNORMALITY IN II/aVF] MODERATE T-WAVE ABNORMALITY, CONSIDER LATERAL ISCHEMIA [-0.1+ mV T WAVE IN I/aVL/V5/V6] Compared to ECG 12/05/2020 21:59:56 Myocardial infarct finding now present T-wave abnormality now present Possible ischemia now present ST (T wave) deviation no longer present Electronically Signed On 12-07-2020 9:16:36 COMPUTER MECHANIC by Rey Denis M.D. [id number]
[2020-12-05 23:07] LABS: Alanine Aminotransferase 14 U/L (0-33); Albumin Level 3.9 g/dL (3.5-5.2); Alkaline Phosphatase 136 IU/L (35-105); Anion Gap 15.5 (5-19); Aspartate Amino Transferase 11 U/L (0-32); Blood Urea Nitrogen 15 mg/dL (8-23); Calcium 9.7 mg/dL (8.5-10.5); Carbon Dioxide 25 mmol/L (22-29); Chloride 101 mmol/L (98-107); Creatinine Clr Calc Pharmacy 70.0508; Globulin 2.6 g/dL (1.3-4.6); Glomerular Filtration Rate 99.1 mL/min (90-130); Glucose 408 mg/dL (65-115); Lipase 27 U/L (13-60); NT Pro B Type Natriuretic Pept 41 pg/mL (0-125); Osmolality Calculated 302 mOsm/kg (285-295); Potassium 4.5 mmol/L (3.5-5.1); Sodium 137 mmol/L (136-145); Total Bilirubin 0.2 mg/dL (0.15-1.2); Total Protein 6.5 g/dL (6.6-8.7)
[2020-12-05] MEDS: metoprolol tartrate 1 mg/1 mL SDV 5 mL 5 MG IV (23:14)
[2020-12-06] VITALS (43 sets, daily range): BP systolic 109–171; BP diastolic 60–116; PULSE 67–106; RESP 10–26; TEMP 36.4–37.1; O2SAT 90–98
--- NOTE | 2020-12-06 00:37 | P.HP_ITS ---
Providers/Chief Complaint Admitting Physician: Faina Gracia MD Primary Care Provider: William Chan MD Chief Complaint: cp History of Present Illness Yasmani Teixeira is a 70 year old female who presented to the emergency room with chief complaint of chest pain. Pain began into the left side of her neck and radiated down into her chest and left arm. She described it as just a pain initially but as it got into her chest it felt like somebody was putting a hole through her chest and was severe. She was diaphoretic, short of breath, nauseated and had an episode of vomiting. She also experienced palpitations. She did not feel well but no specific dizziness or syncope. Upon arrival to the emergency room twelve-lead EKG showed some ST depression initially which r esolved after her chest pain resolved after she received nitroglycerin. She had a similar episode of chest pain the day before and was found to have a positive troponin delta at 2 hours but she did not want to stay in the hospital and left rather than being admitted. She saw her primary care provider Dr. Chan recently and was given a prescription for isosorbide but could not tolerate it, saying it just made her feel really bad. She has had a couple of other minor episodes of some discomfort that resolved with rest. In talking with her she does not recall any other episodes of chest pain but over the last 6 months or so she has had increasing shortness of breath and fatigue with exertion. She recalls that it started when she was doing her gardening last year and it took her a lot longer because she had to rest so much. She has no personal history of coronary artery disease but she does have diabetes. She has a brother and a sister who have both had bypass surgery in their late 50s early 60s. Her father also had heart disease. She reports having had issues with h igh cholesterol in the past as well. She has been scheduled for stress testing this coming Tuesday by her PCP. Initial troponin however was again elevated with a 2-hour delta of 47. She is being admitted for further cardiac evaluation and initiation of medical management. Review of Systems Narrative: Patient's daughter is currently about 8 months . Given her own losses late in , patient admits to being anxious. Her daughter also had a miscarriage at 20 weeks of twins last year. She had thought that her symptoms may be related to anxiety around anticipation of a grandchild and the worry about her daughter. Const: Reports: fatigue; Denies: fever(s), chills or change in weight Eyes: Denies: change in vision ENMT: Denies: throat pain, dry mouth or nasal congestion Card: Reports: chest pain, palpitations and dyspnea on exertion; Denies: edema, syncope or orthopnea Resp: Denies: productive cough, non-productive cough, wheezing or pain on inspiration GI: Reports: nausea and vomiting (once prior to each episode of chest pain); Denies: abdominal pain, diarrhea, constipation, hematochezia or melena : Denies: difficulty voiding Musc: Reports: muscle cramps and other (no new joint or muscle pains) Skin/Breast: Denies: rash or pruritus Neuro: Reports: headache(s) (from nitroglycerin); Denies: numbness in extremities, weakness in extremities or dizziness Psych: Denies: anxiety or depression Cristóbal/Lymph: Denies: easy bruising or easy bleeding Medications/Allergies Home Medications Medication Instructions Recorded Confirmed Last Taken Type blood sugar diagnostic #60 each 07/22/20 11/13/20 Unknown Rx blood-glucose meter #1 each 07/22/20 11/13/20 Unknown Rx pantoprazole 20 mg tablet,delayed 20 mg PO DAILY tab 07/22/20 12/06/20 12/05/20 08:00 History release zolpidem 10 mg PO BEDTIME PRN 08/24/20 12/06/20 12/04/20 21:00 History aspirin 325 mg PO DAILY 11/13/20 12/06/20 12/05/20 08:00 History baclofen 10 mg PO BID PRN 11/13/20 12/06/20 Unknown History glimepiride 4 mg PO BIDWMEAL 11/13/20 12/06/20 12/05/20 08:00 History hydrocodone-acetaminophen 1 tab PO Q6H PRN 11/13/20 12/06/20 11/12/20 History insulin glargine [Lantus Solostar 10 unit SUBCUT DAILY 11/13/20 12/06/20 12/05/20 08:00 History U-100 Insulin] levothyroxine 175 mcg PO DAILY 11/13/20 12/06/20 12/05/20 08:00 History Allergies Allergy/AdvReac Type Severity Reaction Status Date / Time codeine Allergy ADR-Abdominal Verified 11/13/20 17:00 Pain PFSH Acute PFSH: Medical History (Updated 12/06/20 @ 06:59 by Faina Gracia MD) Fibromyalgia On as needed hydrocodone and baclofen Hyperlipidemia Not currently on treatment Hypothyroid Ovarian cancer Treated with hysterectomy with salpingo-oophorectomy Uncontrolled type 2 diabetes with neuropathy Surgical History H/O: hysterectomy History of tonsillectomy Hx of appendectomy Hx of cholecystectomy Family History Sister Cancer uterine/cervix Mother Cancer cervix Social History (Updated 12/06/20 @ 07:08 by Faina Gracia MD) Smoking and tobacco status: former smoker Alcohol intake: never Substance/Drug Use: never Lives independently: Yes Household members: none Additional social history: Smoked for few years in her 20s Female Reproductive History: : 4 Para: 2 Other female reproductive history: Lost 1 child at 7-1/2 months gestation and lost another child at 8-1/2 months gestation. Vitals/I&O/Wt Last Vital Signs Temp 98.2 F 12/05/20 22:04 Pulse 79 12/06/20 00:03 Resp 17 12/05/20 23:16 BP 139/79 12/06/20 00:23 Pulse Ox 96 12/06/20 00:03 Weight last 48 hrs Weight 81.647 kg Physical Exam Const: OTHER: Alert, oriented x3, cooperative HENMT: OTHER: Normocephalic atraumatic, moist mucus membranes, nasopharynx is clear Eye: OTHER: Pupils equally round and reactive to light Neck/C-Spine: OTHER: Supple Resp: OTHER: Clear to auscultation bilaterally, no rales, rhonchi or wheezes noted Cardio: OTHER: Regular rate and rhythm, no murmurs gallops or rubs. 2+ pulses. No jugular venous distention. GI: OTHER: Abdomen soft, nontender, nondistended with positive bowel sounds : OTHER: Deferred Extremity: NARRATIVE EXTREMITY EXAM: No cyanosis, clubbing or pitting edema Neuro: OTHER: Face symmetric, speech clear, moves all extremities Psych: OTHER: Normal affect, pleasant Skin: OTHER: Skin without any lesions or rashes noted Data : 12/05/20 22:28 12/05/20 22:28 Other Labs: Laboratory Tests 12/05/20 12/06/20 22:28 00:22 Troponin T Baseline 13 H Troponin T 120 Minute 60.20 H Delta Troponin T 47.20 H* A&P Assessment and plan (1) Non-ST elevation VT (NSTEMI): Status: Acute (2) Uncontrolled type 2 diabetes with neuropathy: Usually on insulin and glipizide, seeing Dr Solorio Status: Chronic (3) Hypothyroid: On levothyroxine, sees Dr Solorio Status: Acute Qualifiers: Hypothyroidism type: acquired Qualified Code(s): E03.9 - Hypothyroidism, unspecified (4) Hyperlipidemia: Not currently on treatment Status: Inactive (5) Fibromyalgia: On hydrocodone and prn baclofen Status: Acute Additional A&P Information Family history CAD Significant life stressor with daughter being 8 months and Mrs Teixeira having lost 2 last 3rd trimester pregnancies. Patients daughter also miscarried twins last year. Inpatient admission Aspirin, statin, treatment dose Lovenox, Plavix, beta-blockade Telemetry monitoring Continue serial cardiac enzymes and EKGs Cardiology consultation Echocardiogram Check lipid panel and hemoglobin A1c Long and short acting insulin Continue home levothyroxine GI prophylaxis Treatment dose Lovenox will provide DVT prophylaxis Continue home pain management as needed medicines Supportive care otherwise Plans discussed with patient and she was given an opportunity to ask questions Full code Attestations Medical Necessity Statement*: Anticipated stay greater than 2 midnights in this patient with chest pain associated with ST segment depression and positive troponin has had previous admission with non-ST elevation VT but left AMA before further evaluation could be done. Has suboptimally controlled diabetes is a risk factor. Will require further cardiac evaluation and initiation of medical management as ordered. High risk of serious consequences without close monitoring and potential intervention Coding Level of Care Code Acute Consumer Electronic Retail Specialist for Dev Flood Diagnoses Non-ST elevation VT (NSTEMI) I21.4 Uncontrolled type 2 diabetes with neuropathy E11.40; E11.65 Hypothyroid E03.9 Hypothyroidism type: acquired Hyperlipidemia E78.5 Fibromyalgia M79.7
[2020-12-06] MEDS: enoxaparin 80 mg/0.8 mL Syringe SUBCUT (02:07)
--- NOTE | 2020-12-06 02:10 | USCV_ITS ---
Blancaashia Yasmani Age: 70 Gender: F : 1950 Exam Date: 12/06/2020 09:53 Ordering Phys: Faina Gracia MD Technologist: Isa Sharp Exam Location: [facility] [place] Indication: NSTEMI BP: 114 / 73 HR: 94 Rhythm: Sinus Technical Quality: Fair MEASUREMENTS (Male / Female) Normal Values 2D ECHO LV Diastolic Diameter PLAX 4.0 cm 4.2 - 5.9 / 3.9 - 5.3 cm LV Systolic Diameter PLAX 2.0 cm LV Chamber Size 3.5 cm IVS Diastolic Thickness 1.3 cm 0.6 - 1.0 / 0.6 - 0.9 cm IVS Systolic Thickness 2.0 cm LVPW Diastolic Thickness 0.8 cm 0.6 - 1.0 / 0.6 - 0.9 cm LVPW Systolic Thickness 0.8 cm RV Chamber Size 2.8 cm LVOT Diameter 1.8 cm LV Ejection Fraction 2D Teich 82.8 % LV Ejection Fraction MOD 2C 78.0 % LV Ejection Fraction 2C AL 78.8 % LA Diameter 3.2 cm LA Width 3.5 cm LA Height 4.5 cm RA Width 2.6 cm RA Height 4.1 cm Aorta at Sinotubular Diameter 2.6 cm M-MODE LV Diastolic Diameter MM 5.6 cm 4.2 - 5.9 / 3.9 - 5.3 cm LV Systolic Diameter MM 3.3 cm LV Ejection Fraction MM Teich 71.2 % IVS Diastolic Thickness MM 1.0 cm 0.6 - 1.0 / 0.6 - 0.9 cm IVS Systolic Thickness MM 1.2 cm LVPW Diastolic Thickness MM 1.2 cm 0.6 - 1.0 / 0.6 - 0.9 cm LVPW Systolic Thickness MM 1.6 cm RV Diastolic Diameter MM 0.9 cm Aortic Annulus Diameter 3.0 cm LA Ao Ratio MM 1.2 MV E Point Septal Separation 0.6 cm DOPPLER AV Peak Velocity 125.0 cm/s LVOT Peak Velocity 87.0 cm/s AV Area Cont Eq vti 2.1 cm squared AV Area Cont Eq pk 1.8 cm squared MV Area PHT 4.5 cm squared Mitral E to A Ratio 0.7 MV E' Velocity 44.0 cm/s Mitral E to MV E' Ratio 9.2 Mitral E to LV E' Lateral Ratio 6.9 Mitral E to LV E' Septal Ratio 13.9 TR Peak Velocity 273.7 cm/s TR Peak Gradient 30.0 mmHg TV Peak E Velocity 83.0 cm/s Right Atrial Pressure 3.0 mmHg Pulmonary Artery Systolic Pressu 33.0 mmHg PV Peak Velocity 104.0 cm/s RV Acceleration Time 0.1 s RV Ejection Time 0.2 s RV AcT/ET 0.4 FINDINGS Left Ventricle Moderate hypokinesis of the mid and apical septum, anteroseptum and the LV apex. LV ejection fraction around 40%.Grade I/IV diastolic dysfunction (abnormal relaxation filling pattern), normal to mildly elevated filling pressures. Right Ventricle Normal right ventricular size and systolic function, RVSP 33 mmHg. Right Atrium The right atrium is normal in size. Left Atrium The left atrium is normal in size. Mitral Valve No gross abnormalities noted . Aortic Valve No gross abnormalities noted Tricuspid Valve Trace tricuspid valve regurgitation. Pulmonic Valve Structurally normal pulmonic valve without significant stenosis. There is no pulmonic regurgitation. Pericardium No pericardial effusion. Aorta Normal ascending aorta dimension. CONCLUSIONS Moderate hypokinesis of the mid and apical septum, anteroseptum and the LV apex. LV ejection fraction around 40%. Grade I/IV diastolic dysfunction (abnormal relaxation filling pattern), normal to mildly elevated filling pressures. Trace tricuspid valve regurgitation. There is no pericardial effusion. Normal right ventricular size and systolic function, RVSP 33 mmHg. There are no intracardiac masses. No previous study is available for comparison. Dr Rey Denis MD FACC (Electronically Signed) Final Date: 06 December 2020 11:27 S
[2020-12-06] MEDS: HYDROcodone-acetaminophen 10-325 mg Tablet 1 TAB PO ×3 (03:14→21:22)
[2020-12-06] MEDS: atorvastatin 40 mg Tablet PO ×2 (03:14→21:22)
[2020-12-06] MEDS: nitroglycerin 1 gm/inch oint Pkt 0.5 INCH TOPICAL ×4 (03:15→20:24)
[2020-12-06] MEDS: clopidogrel 300 mg Tablet PO (03:15)
[2020-12-06] MEDS: aspirin 325 mg EC Tablet PO ×2 (03:15→09:59)
[2020-12-06] MEDS: sodium chloride 0.9% 1,000 ML 75 ML IV ×2 (03:17→17:30)
--- NOTE | 2020-12-06 04:01 | ECG_ITS ---
[facility] Test Date: 2020-12-06 Pat Name: Yasmani Teixeira Department: Room: 275 Gender: Female Mantel Craftsman: : 1950 Requested By: Heather Grijalva Order Number: [id number] Ryder MD: Rey Denis M.D. Measurements Intervals [place] Rate: 76 P: 42 SD: 155 QRS: 7 QRSD: 94 T: 134 QT: 409 QTc: 462 Interpretive Statements SINUS RHYTHM MODERATE T-WAVE ABNORMALITY, CONSIDER LATERAL ISCHEMIA [-0.1+ mV T WAVE IN I/aVL/V5/V6] Compared to ECG 12/05/2020 23:03:37 Sinus tachycardia no longer present Myocardial infarct finding no longer present T-wave abnormality still present Possible ischemia still present Electronically Signed On 12-07-2020 20:24:14 DRYWALL SPRAYER by Rey Denis M.D. [id number]
[2020-12-06] MEDS: acetaminophen 325 mg Tablet 650 MG PO (05:30)
[2020-12-06 05:46] LABS: INR 0.96 (0.8-1.2)
[2020-12-06 05:47] LABS: Partial Thromboplastin Time 34.1 SECONDS (23.9-36.7)
[2020-12-06 06:01] LABS: Anion Gap 10.1 (5-19); Blood Urea Nitrogen 13 mg/dL (8-23); Calcium 9.5 mg/dL (8.5-10.5); Carbon Dioxide 27 mmol/L (22-29); Chloride 101 mmol/L (98-107); Chol HDL Ratio 4.56 mg/dL (0.0-4.40); Cholesterol 205 mg/dL (0-200); Creatinine Clr Calc Pharmacy 70.0508; Glomerular Filtration Rate 158.3 mL/min (90-130); Glucose 287 mg/dL (65-115); HDL Cholesterol 45 mg/dL (60-100); LDL Cholesterol Calculated 130 mg/dL (50-129); LDL HDL Ratio 2.89 RATIO (0.00-3.22); Magnesium 1.6 mg/dL (1.7-2.3); NT Pro B Type Natriuretic Pept 278 pg/mL (0-125); Osmolality Calculated 289 mOsm/kg (285-295); Potassium 4.1 mmol/L (3.5-5.1); Sodium 134 mmol/L (136-145); Triglycerides 150 mg/dL (0-150)
[2020-12-06 06:03] LABS: Estmated Average Glucose 260; Hemoglobin A1C 10.7 % (4.0-6.0)
[2020-12-06 06:28] LABS: Troponin 5 6HR 79.14 ng/L (0-10)
[2020-12-06 06:37] LABS: Troponin 5 6HR Delta 66.14 ng/L (0-12)
[2020-12-06] MEDS: insulin glargine 100 units/1 mL 5 UNIT SUBCUT (06:52)
[2020-12-06 07:23] LABS: Glucose Point of Care 242 mg/dL (70-110)
[2020-12-06] MEDS: ondansetron 2 mg/ML SDV 2 mL 4 MG IVP (07:47)
[2020-12-06] MEDS: magnesium sulfate premix 2 GM/50 ML PIGGYBACK IV (07:48)
[2020-12-06] MEDS: pantoprazole DR 40 mg Tablet PO (07:48)
--- NOTE | 2020-12-06 08:47 | PM.CONSULT ---
Providers/Reason For Consult Consulting Physican/Specialty*: ARVIN Denis MD/cardiology Reason for Consult*: Patient with multiple risk factors for coronary artery disease presenting with chest pain and elevated troponin T Attending Physician: Faian Gracia MD Primary Care Provider: William Chan MD History of Present Illness History of Present Illness Yasmani Teixeira is a 70 year old female, is admitted to the hospital through the emergency room, where she presented with complaints of a prolonged episode of chest pain. This patient apparently has been in her baseline state of health up until yesterday around 10:00, while watching television, started having pressure-like pain in the left upper part of the chest, radiating to the left shoulder and down to the left arm. The symptoms are mild to begin with and then gradually started getting worse. She had associated shortness of breath, nausea, sweating and 2 bouts of vomiting. The pain became more severe as time passed by. It became 8/10 intensity. She may have waited around for an hour or so at home, hoping the symptoms will go away. Because of the persistent and worsening symptoms, she decided to come to the emergency room. In the emergency room, she was given 3 sublingual nitro and then was placed on a nitro paste. The symptoms gradually started easing off. It may have taken a total of 3 hours or so for the symptoms to completely subside. At the time of my examination, patient is pain-free. She is mainly complaining of a headache from the nitro paste. On 13 November, she came to the emergency room with pain in the chest. At that time the pain started on the left side of the face, radiating down to the left shoulder and to the arm. Pain middle lasted for a half an hour to 1 hour. In the emergency room, she was found to have elevated troponin T. Even the hospital admission was recommended, patient decided to go home. Subsequently she was seen by her family physician, Dr. Chan. She was placed on isosorbide mononitrate. Because of the headache, she stopped taking this medicine. According to the patient, she has been having episodes of chest tightness since then. This may occur with or without activities. For the last 6 months or so, she been having some amount of dyspnea on exertion and fatigue. Denies any fever, chills or cough. She has no previous history for coronary artery disease, myocardial infarction or congestive heart failure. She has a history of type 2 diabetes for the last 10 years or so. She also is known to have dyslipidemia. She was on some medication for this but because of the worsening muscle pains and joint pains, she stopped taking this medicine. She also is known to have fibromyalgia. She been taking medication for hypothyroidism since age of 24. Her father of myocardial infarction at the age of 42. Her brother and sister had a coronary artery bypass surgery in their late 50s. She is a and lives alone. Review of Systems Narrative: CONSTITUTIONAL: No fever or chills. Shortness of breath and fatigue as mentioned above EYES: No blurring of vision or other visual disturbances lately. ENT: No hoarseness of voice, auditory disturbances or sore throat. CARDIOVASCULAR: As mentioned above. RESPIRATORY: No significant cough. GASTROINTESTINAL: No hematemesis or melena. GENITOURINARY: No dysuria or hematuria. INTEGUMENTARY: No skin rashes or history of skin cancer. NEURO: No transient ischemic attacks or amaurosis. PSYCHIATRIC: No history of psychosis or major depression. HEMATOLOGIC: No bleeding disorders or significant anemia. ENDOCRINE: History of type 2 diabetes and hypothyroidism as mentioned above. MUSCULOSKELETAL: Severe fibromyalgia. ALLERGY/IMMUNOLOGY: As mentioned above. Meds/Allergies Home Medications and Allergies Home Medications Medication Instructions Recorded Confirmed Last Taken Type blood sugar diagnostic #60 each 07/22/20 12/06/20 Unknown Rx blood-glucose meter #1 each 07/22/20 12/06/20 Unknown Rx pantoprazole 20 mg tablet,delayed 20 mg PO DAILY tab 07/22/20 12/06/20 12/05/20 08:00 History release zolpidem 10 mg PO BEDTIME PRN 08/24/20 12/06/20 12/04/20 21:00 History aspirin 325 mg PO DAILY 11/13/20 12/06/20 12/05/20 08:00 History glimepiride 4 mg PO BIDWMEAL 11/13/20 12/06/20 12/05/20 08:00 History hydrocodone-acetaminophen 1 tab PO Q6H PRN 11/13/20 12/06/20 11/12/20 History insulin glargine [Lantus Solostar 10 unit SUBCUT DAILY 11/13/20 12/06/20 12/05/20 08:00 History U-100 Insulin] levothyroxine 175 mcg PO DAILY 11/13/20 12/06/20 12/05/20 08:00 History Allergies Allergy/AdvReac Type Severity Reaction Status Date / Time codeine Allergy ADR-Abdominal Verified 11/13/20 17:00 Pain Current Medications Current Medications Generic Name Dose Route Start Last Admin Trade Name Freq PRN Reason Stop Dose Admin Acetaminophen 650 mg 12/06/20 02:04 12/06/20 05:30 Acetaminophen 325 Mg Tablet PO 650 mg Q6H PRN Administration Mild/Mod Pain Or Temp >/= 101 Hydrocodone Bitart/Acetaminophen 1 tab 12/06/20 02:17 12/06/20 03:14 Hydrocodone-Acetaminophen 10-325 Mg Tablet PO 1 tab Q6H PRN Administration MODERATE PAIN Aspirin 325 mg 12/06/20 02:15 12/06/20 03:15 Aspirin 325 Mg Ec Tablet PO 325 mg DAILY RANDY Administration Atorvastatin Calcium 40 mg 12/06/20 02:15 12/06/20 03:14 Atorvastatin 40 Mg Tablet PO 40 mg BEDTIME RANDY Administration Enoxaparin Sodium 80 mg 12/06/20 02:00 12/06/20 02:07 Enoxaparin 80 Mg/0.8 Ml Syringe SUBCUT 80 mg Q12H RANDY Administration Sodium Chloride 1,000 mls @ 75 mls/hr 12/06/20 02:15 12/06/20 03:17 Sodium Chloride 0.9% IV 75 mls/hr .[id number] RANDY Administration Nitroglycerin 0.4 mg 12/05/20 22:13 12/05/20 22:41 Nitroglycerin 0.4 Mg Sublingual Tablet SUBLINGUAL 1 tab Q5M PRN Administration CHEST PAIN Nitroglycerin 0.5 inch 12/06/20 02:15 12/06/20 03:15 Nitroglycerin 1 Gm/Inch Oint Pkt TOPICAL 0.5 inch Q6H RANDY Administration PFSH Acute PFSH: Medical History Fibromyalgia On as needed hydrocodone and baclofen Hyperlipidemia Not currently on treatment Hypothyroid Ovarian cancer Treated with hysterectomy with salpingo-oophorectomy Uncontrolled type 2 diabetes with neuropathy Surgical History H/O: hysterectomy History of tonsillectomy Hx of appendectomy Hx of cholecystectomy Family History Sister Cancer uterine/cervix Mother Cancer cervix Social History Smoking and tobacco status: former smoker Alcohol intake: never Substance/Drug Use: never Lives independently: Yes Household members: none Additional social history: Smoked for few years in her 20s Female Reproductive History: : 4 Para: 2 Vitals/I&O/Wt Last Vital Signs Temp 97.5 F L 12/06/20 04:00 Pulse 80 12/06/20 04:00 Resp 16 12/06/20 04:00 BP 114/73 12/06/20 04:00 Pulse Ox 93 12/06/20 04:00 12/05/20 12/06/20 12/06/20 22:59 06:59 14:59 Intake Total 600 / 600 Output Total 420 / 420 Balance 180 / 180 Weight last 48 hrs Weight 180 lb Physical Exam Narrative: EXAM NARRATIVE: GENERAL: The patient is alert and oriented times three. Not in any acute distress. HEENT: No significant pallor, icterus or lymphadenopathy. The pupils are reactant to light. Oral cavity: There are no mucous membrane lesions. Funduscopic examination: The fundus is not visualized NECK: Trachea appears to be central. No masses noted. No JVD or thyromegaly appreciated. No carotid bruit. RESPIRATORY: Chest is symmetrical. No intercostals muscle retraction or any accessory muscle activation. There is no chest wall tenderness. Breath sounds are heard bilaterally. No rales or rhonchi heard. No evidence of any consolidation. BREASTS: Deferred. HEART: T the PMI could not be palpated. No other palpable precordial events. S1 and S2 are normal. No S3 or S4 heard. No pericardial rub or any click heard. ABDOMEN: No vessel pulsations or distention. No tenderness. No organomegaly appreciated. No abdominal bruit. Bowel sounds are normally heard. : Deferred. RECTAL: Deferred. LYMPHATIC: No lymphadenopathy noted in the neck or groin. EXTREMITIES: No edema or cyanosis. No clubbing. The pulses are symmetrical bilaterally. The radial, femoral, dorsalis pedis and the posterior tibial pulses are palpated and found to be in good volume and amplitude. MUSCULOSKELETAL: No acute joint deformities or swelling SKIN: There are no significant scars or skin rash noted. NEUROPSYCHIATRIC: The patient is alert and oriented x3. Appears to be somewhat nervous. The higher functions are grossly within normal limits. No tremors or rigidity noted. Data Labs: Other Labs: Laboratory Last Values WBC 7.4 10^3/uL (4.0- 10.0) 12/05/20: RBC 4.95 10^6/uL (4.1 -5.3) 12/05/20: Hgb 14.6 g/dL (11.5-1 5.3) 12/05/20: Hct 44.0 % (37.0-47.0 ) 12/05/20: MCV 88.9 fL (81-99) 12/05/20: MCH 29.5 pg (28.0-34. 0) 12/05/20: MCHC 33.2 g/dL (30.0-3 6.0) 12/05/20: RDW 11.6 % (12.1-15.1 ) L 12/05/20: Plt Count 296 10^3/cmm (130 -400) 12/05/20: MPV 9.9 fL (7.4-10.4) 12/05/20: Neut % (Auto) 48.2 % 12/05/20: Lymph % (Auto) 40.8 % 12/05/20: [place] % (Auto) 7.2 % 12/05/20: Eos % (Auto) 3.2 % 12/05/20: Baso % (Auto) 0.5 % 12/05/20: Neut # (Auto) 3.56 10^3/uL (1.8 -7.7) 12/05/20: Lymph # (Auto) 3.0 10^3/uL (0.8- 4.8) 12/05/20: [place]ilion # (Auto) 0.5 10^3/uL (0.2- 0.9) 12/05/20: Eos # (Auto) 0.2 10^3/uL (0.0- 0.8) 12/05/20 22:28 Baso # (Auto) 0.0 10^3/uL (0.0- 0.1) 12/05/20 22:28 Nucleated RBC % (a uto) 0 % 12/05/20 22:28 Nucleated RBCs # 0.0 /100WBC 12/05/20 22:28 PT 13.00 SECONDS (12 .1-14.9) 12/06/20 05:20 INR 0.96 (0.8-1.2) 12/06/20 05:20 APTT 34.1 SECONDS (23. 9-36.7) 12/06/20 05:20 Sodium 134 mmol/L (136-1 45) L 12/06/20 05:20 Potassium 4.1 mmol/L (3.5-5 .1) 12/06/20 05:20 Chloride 101 mmol/L (98-10 7) 12/06/20 05:20 Carbon Dioxide 27 mmol/L (22-29) 12/06/20 05:20 Anion Gap 10.1 (5-19) 12/06/20 05:20 BUN 13 mg/dL (8-23) 12/06/20 05:20 Creatinine 0.4 mg/dL (0.5-0. 9) L 12/06/20 05:20 GFR Calculation 158.3 mL/min (90- 130) H 12/06/20 05:20 Glucose 287 mg/dL (65-115 ) H 12/06/20 05:20 POC Glucose 242 mg/dL (70-110 ) H 12/06/20 06:52 Estimat Average Gl ucose 260 12/06/20 05:20 Hemoglobin A1c 10.7 % (4.0-6.0) H 12/06/20 05:20 Calculated Osmolal ity 289 mOsm/kg (285- 295) 12/06/20 05:20 Calcium 9.5 mg/dL (8.5-10 .5) 12/06/20 05:20 Magnesium 1.6 mg/dL (1.7-2. 3) L 12/06/20 05:20 Total Bilirubin 0.2 mg/dL (0.15-1 .2) 12/05/20 22:28 AST 11 U/L (0-32) 12/05/20 22:28 ALT 14 U/L (0-33) 12/05/20 22:28 Alkaline Phosphata se 136 IU/L (35-105) H 12/05/20 22:28 Troponin T Baselin e 13 ng/L (0-10) H 12/05/20 22:28 Troponin T 120 Min carlos 60.20 ng/L (0-10) H 12/06/20 00:22 Delta Troponin T 47.20 ABS# (0-10) H* 12/06/20 00:22 Troponin T Hi Sens 6Hr 79.14 ng/L (0-10) H 12/06/20 05:20 Troponin T Hi Sens 6Hr Delta 66.14 ng/L (0-12) H* 12/06/20 05:20 NT-Pro-B Natriuret Pep 278 pg/mL (0-125) H 12/06/20 05:20 Total Protein 6.5 g/dL (6.6-8.7 ) L 12/05/20 22:28 Albumin 3.9 g/dL (3.5-5.2 ) 12/05/20 22:28 Globulin 2.6 g/dL (1.3-4.6 ) 12/05/20 22:28 Triglycerides 150 mg/dL (0-150) 12/06/20 05:20 Cholesterol 205 mg/dL (0-200) H 12/06/20 05:20 LDL Cholesterol, C alc 130 mg/dL (50-129 ) H 12/06/20 05:20 HDL Cholesterol 45 mg/dL (60-100) L 12/06/20 05:20 LDL/HDL Ratio 2.89 RATIO (0.00- 3.22) 12/06/20 05:20 Cholesterol/HDL Ra estephanie 4.56 mg/dL (0.0-4 .40) H 12/06/20 05:20 Lipase 27 U/L (13-60) 12/05/20 22:28 Imaging^: CXR: My impression: Normal cardiac silhouette with no lung infiltrates. No acute pathology noted. EKG^: EKG 1: My Interpretation: Normal sinus rhythm with diffuse nonspecific T wave changes in the precordial leads. Prominent T inversions in lead I and aVL. QTC of 462. A&P Assessment and plan (1) Unstable angina: Patient is a clinical features are consistent with unstable angina. EKG shows features of anterolateral wall ischemia. This needs to be further evaluated. Patient may be treated with subcu Lovenox, beta-kj, nitrates and aspirin. Currently she is pain-free. Status: Acute (2) Non-ST elevation CO (NSTEMI): She is a non-ST elevation myocardial infarction. Her LV function is not known. For further evaluation, we may do an echocardiogram. In view of her recurrent episodes of chest pains and myocardial infarction, she requires a cardiac catheterization, to further evaluate her coronary status and decide on further management. Status: Acute (3) Uncontrolled type 2 diabetes with neuropathy: Patient's diabetes need to be aggressively managed. Currently her blood sugar is 287. Management as per the primary. Status: Chronic (4) Dyslipidemia (high LDL; low HDL): I may start her on Crestor for the time being. If she has worsening of the fibromyalgia, need to consider PCSK9 inhibitor Status: Acute (5) Hypothyroid: Clinically euthyroid. May continue on the current medications. Status: Acute Qualifiers: Hypothyroidism type: acquired Qualified Code(s): E03.9 - Hypothyroidism, unspecified Additional A&P Information I discussed with the patient in detail her current status and need for further cardiac work-up. She requires a cardiac colorization, to further evaluate the coronary status and decide on further management. The risk of bleeding, hematoma, vascular injury, myocardial infarction, CVA, renal failure and other concomitant complications were explained in detail. She understood this well and consented to proceed. We will go ahead and make the arrangements for the angiogram today. Based on the results, further recommendations will be made. Thank you for the opportunity to evaluate this patient make these recommendations Consult Attestations Medical Necessity Statement: Patient requires continued hospital stay for close monitoring and further management Coding Level of Care Code Acute Material Expeditor for [facility] Fwd Medical Decision Making High Complexity Diagnoses Unstable angina I20.0 Non-ST elevation CO (NSTEMI) I21.4 Uncontrolled type 2 diabetes with neuropathy E11.40; E11.65 Dyslipidemia (high LDL; low HDL) E78.5 Hypothyroid E03.9 Hypothyroidism type: acquired
[2020-12-06] MEDS: sodium chloride 0.9% 1,000 ML 50 ML IV (09:59)
[2020-12-06] MEDS: metoprolol tartrate 25 mg Tablet PO ×2 (09:59→21:22)
[2020-12-06 12:19] LABS: Glucose Point of Care 202 mg/dL (70-110)
--- NOTE | 2020-12-06 12:41 | XACV_ITS ---
Exam Room: [facility] Ht: 165 cm Wt: 82 kg BSA: 1.96 m2 Gender: Female : 1950 Any Known Allergies: Codeine Exam Priority: Routine Procedure(s): Procedure Description: Diagnostic procedure Procedure Description: Left Heart Catheterization Procedure Description: Left ventriculography Diagnostic Cath Status: Elective Diagnostic Findings * The left main is a medium caliber vessel which appears to have around 40% stenosis distally, before the bifurcation. * The left hand descending artery is a medium caliber vessel which appears to taper off to the left renal apex. The proximal left and descending artery was found to have an area of 99% gnosis with a filling defect. Just before the takeoff of the first diagonal branch, there is high-grade lesion of around 85% in the artery. Soon after the first diagonal, the artery appears to have a long tubular narrowing of around 50 to 60%. The distal artery appears to have minimal intimal irregularities.. * The circumflex artery is a medium caliber vessel which was found to have an ostial around 40% narrowing. At the origin of the first obtuse marginal branch, there was around 50% stenosis in the circumflex artery. At the ostium of the first obtuse marginal artery, there is a 99% stenosis. * The right coronary artery is a medium to large caliber vessel which was found to have around 30% ostial narrowing. The proximal, mid and distal right coronary artery was found to have mild diffuse disease. The PLV branch was found to have around 50 to 60% irregular diffuse narrowing proximally. The distal segment of the artery also was found to have some 40 to 50% blockages.. Conclusions 1. This is a 70-year-old white female, is admitted to hospital with features of recurrent non-ST elevation myocardial infarction. She is a diabetic with the dyslipidemia and hypothyroidism. For further evaluation and management of her condition, a cardiac catheterization was recommended. Patient underwent left heart catheterization with left and right coronary angiogram and LV angiogram today. The findings are as follows. 2. Left main was found to have a 40% distal stenosis. The left anterior descending artery has multiple lesions ranging anywhere from 70 to 99%. The proximal lesion in the left anterior descending artery may have a thrombus. 2 other lesions were noted in the mid and distal segment of this artery. High-grade lesion in the ostium of the first obtuse marginal artery of the circumflex . Mild to moderate diffuse disease in the right coronary artery. LV ejection fraction of 45%. Wall motion normalities as mentioned above. LVEDP was 17 mmHg. No significant mitral valve prolapse or mitral regurgitation. Recommendations * I reviewed and discussed the cardiac catheterization n findings with .. Surgical revascularization was Thought to be more appropriate, in view of her multivessel coronary artery disease, diminished LVEF. Interventional RX Recommendation: none Diagnostic RX Recommendation: CABG LV EDP: 19 mmHg Ventriculography Ejection Fraction: 45.0 % Left Ventriculography Findings: * Diffuse hypokinesia of the mid and apical anterior and LV apex. No significant mitral valve prolapse or mitral regurgitation. Pressures Phase:Rest AO : 190 / 35 ( 50 ) @ 7:46:00 AM LV : 167 / 27 / @ 7:44:00 AM 162 / 28 / @ 7:44:00 AM 157 / 29 / @ 7:46:00 AM 156 / 30 / @ 7:46:00 AM Clinical Evaluation EBL: 5mL-10mL Procedural Details Procedure Consent Obtained. Admit Source: In Patient. Pre-Procedure Time Out. Identified patient by full name and date of as verbalized by the patient/guarantor. Does the consent match the physician's order: Yes. Accurate & Complete Informed Consent: Yes. Inpatient/Outpatient History & Physical on Chart: Yes. If H&P is completed, is and addenduem needed: Yes; If yes, is the addendum complete: N/A. Visualize and Verify Site with Patient/Guarantor: N/A. Relevant Radiology Images available: N/A. Pre-op teaching completed and patient verbalized understanding. The risks, benefits, and alternatives of sedation and/or procedure were discussed by physician. The patient agrees to continue. Procedure started. Correct patient, site and procedure confirmed by cath team. PERRLA. Strong, equal hand insole rasper bilaterally. Lungs clear x 5 lobes. IV Fluids: 0.9% NaCl at KVO. 600 mL infused prior to forestry farm laborer. Oxygen started at 2liters/min via nasal canula. bilateral groins was prepped with chloroprep then draped in the usual sterile fashion. right radial was prepped with chloroprep then draped in the usual sterile fashion. IV Site on Arrival: 20 gauge in the left anticubital. Baseline sample Acquired. HR: 85 BPM. Physician notified. Physician arrived. Physician scrubbed in. Immediate Pre-Procedure Time Out. Correct Patient: Yes; Correct Procedure: Yes; Correct Site: Yes; Correct Patient Position: Yes; Correct Supplies: Yes; Dried Flammable Prep: Yes; Blood Products Available: N/A;. Lidocaine 1% infiltrated to the right radial. Arterial access obtained. A 5 greenlandic Candido catheter in over wire. Dr. King notified. Multiple views taken of left coronary artery. Catheter redirected to the RCA. Catheter out. A 5 greenlandic JR4 catheter in over wire. wire out. Multiple views taken of right coronary artery. Catheter out. A 5 greenlandic Angled Pig catheter in over wire. Dr. King arrived. wire out. EDP Sample taken: LV 167/27,46; HR: 97 BPM; SpO2: 96%. LV EDP: 16. LV gram performed in HORNER @ 10 mL/second for a total of 30 mL. EDP Sample taken: LV 157/29,47; HR: 91 BPM; SpO2: 96%. Pullback taken: LV Off; AO Off; Mean: , Peak to Peak: , SEP: ; HR: 85 BPM; SpO2: 97%. LV EDP: 19. Catheter out. TR band placed. Hemostasis obtained. Post Procedure: Pulses reassessed and unchanged. PERRLA. Strong, equal hand insole rasper bilaterally. No VTE prophylaxis required. Medication's Wasted: Lidocaine 1% = 18 mL. Medication's Wasted: Nitro = 49.8 mg. Medication's Wasted: Heparin = 1000 units. Medication's Wasted: Other = versed 1 mg. Total IV fluids: 75 mL. Contrast type used: Omnipaque 300 mgI/mL, 500 mL bottle. Contrast Material : Omnipaque 126 ml. Post-op diagnosis: 3 Vessel CAD. Complications: none. Estimated blood loss: 5mL-10mL. A TR Band was successful obtaining hemostatsis at the Right Radial artery insertion site. [facility] Clinical Fraility Score: 4: Vulnerable. Tray Drier Operator Indications: ACS <= 24 hours. Chest Pain Symptom Assessment: Typical Angina Symptoms. Cardiovascular Instability: No,. Procedure completed. Patient transferred by wheelchair to ICU. Vital chart was stopped. Access Site Site: Right Radial artery Sheath Size: 6 Fr Hemostasis Method: TR Band Hemostasis Success: Successful Procedure Medications Start: 1:12 PM Stop: 1:12 PM Medication: Versed Amount: 1 mg Route: I.V. Start: 1:12 PM Stop: 1:12 PM Medication: Fentanyl Amount: 50 mcg Route: I.V. Start: 1:16 PM Stop: 1:16 PM Medication: Versed Amount: 1 mg Route: I.V. Start: 1:20 PM Stop: 1:20 PM Medication: Fentanyl Amount: 50 mcg Route: I.V. Start: 1:21 PM Stop: 1:21 PM Medication: Versed Amount: 1 mg Route: I.V. Start: 1:23 PM Stop: 1:23 PM Medication: Verapamil Amount: 5 mg Route: I.C. Start: 1:23 PM Stop: 1:23 PM Medication: Versed Amount: 1 mg Route: I.V. Start: 1:24 PM Stop: 1:24 PM Medication: Nitrogylcerin Amount: 200 mcg Route: I.A. Start: 1:27 PM Stop: 1:27 PM Medication: Heparin Amount: 5000 units Route: I.V. Start: 1:38 PM Stop: 1:38 PM Medication: Versed Amount: 1 mg Route: I.V. I, the attending physician, have reviewed and verified all procedure medications. Yes, all medications given per verbal order Report Signatures Amended by Dr Rey Denis MD [facility] on 12/07/2020 06:[address] Rey Denis MD [facility] on 12/06/2020 04:03 PM
--- NOTE | 2020-12-06 13:14 | P.HPUD_ITS ---
Surgery/Procedure H&P Update DATE OF PROCEDURE: December 06, 2020 DATE H&P PERFORMED: 12/06/20 PREOP DIAGNOSIS: Non-ST elevation myocardial infarction/unstable angina PATIENT REASSESSED PRIOR TO SEDATION, WITH NO CHANGE NOTED: Yes PHYSICAL EXAM: alert, oriented x 3, clear to auscultation bilaterally and regular rate & rhythm AIRWAY EVAL/ANESTHESIA PLAN: normal airway, see other exam findings, ASA III, Mo nitored Anesthesia, Local Anesthesia, Risks, benefits & alternatives of sedation and/or procedure discussed and Patient agrees to continue as planned
--- NOTE | 2020-12-06 14:35 | PC.NURSE ---
To ICU 10 at 1410, VSS, AAOX3 (confused to day of week), neuro and neurovascular WNL.
--- NOTE | 2020-12-06 14:42 | PM.PN ---
Subjective Subjective: Interval history: This morning patient was examined at her cardiac catheterization procedure, the ICU, she has multivessel CAD, will require evaluation by cardiothoracic surgery for bypass, currently her only complaints that she would like her hydrocodone for her fibromyalgia, and she wants to make sure that she gets her Ambien tonight, she is denying any chest pain, no palpitations, no nausea, no vomiting, no shortness of breath, no headaches, no blurry vision. He does have type 2 diabetes, she tells me she takes Lantus, does not take a sliding scale at home, she is not sure what her last hemoglobin A1c was, tells me that her blood pressures are well controlled, smoked for a few years over 40 years ago Vitals/I&O/Wt Last Vital Signs Temp 98.7 F 12/06/20 12:00 Pulse 89 12/06/20 14:30 Resp 14 12/06/20 14:30 BP 119/85 12/06/20 14:30 Pulse Ox 90 12/06/20 14:30 12/05/20 12/06/20 12/06/20 22:59 06:59 14:59 Intake Total 600 / 600 Output Total 420 / 420 Balance 180 / 180 Weight last 48 hrs Weight 81.647 kg Physical Exam Const: COMMON NORMALS: no acute distress and patient oriented x3 HENMT: COMMON NORMALS: normocephalic HEAD & SCALP: normocephalic Neck/C-Spine: COMMON NORMALS: no JVD Resp: COMMON NORMALS: normal respiratory effort, No retractions, No use of accessory muscles and clear to auscultation bilaterally AUSCULTATION: clear to auscultation bilaterally Cardio: COMMON NORMALS: no JVD, regular rate, regular rhythm, S1 normal heart sound present and S2 normal heart sound present RATE: regular rate RHYTHM: regular rhythm HEART SOUNDS: S1 normal heart sound present and S2 normal heart sound present GI: COMMON NORMALS: Normal to inspection, nondistended, normoactive bowel sounds present, Soft to palpation, non-tender, No hepatosplenomegaly present, no masses and no bruits PALPATION: Yes Soft to palpation and Yes No hepatosplenomegaly present Extremity: COMMON NORMALS: capillary refill normal, no clubbing, cyanosis or edema, no calf tenderness and no pedal edema Neuro: COMMON NORMALS: patient oriented x3 Psych: COMMON NORMALS: mental status grossly normal Data : 12/05/20 22:28 12/06/20 05:20 A&P Assessment and plan (1) Non-ST elevation [place] (NSTEMI): -Multivessel CAD -Will require cardiothoracic surgery evaluation, and bypass -Continue aspirin, statin, beta-kj -Start heparin drip tomorrow morning -Continue to monitor for chest pain, telemetry monitoring -Continue to monitor in ICU -Full code -Heparin for DVT prophylaxis, SCDs Status: Acute (2) Uncontrolled type 2 diabetes with neuropathy: Usually on insulin and glipizide, seeing Dr Solorio Hemoglobin A1c 10.7 Continue Lantus 10 units Insulin sliding scale Status: Chronic (3) Hypothyroid: On levothyroxine, sees Dr Solorio Status: Acute Qualifiers: Hypothyroidism type: acquired Qualified Code(s): E03.9 - Hypothyroidism, unspecified (4) Hyperlipidemia: Not currently on treatment Status: Inactive (5) Fibromyalgia: On hydrocodone and prn baclofen Status: Acute Additional A&P Information GI prophylaxis Treatment dose Lovenox will provide DVT prophylaxis Continue home pain management as needed medicines Supportive care otherwise Plans discussed with patient and she was given an opportunity to ask questions Full code Attestations Medical Necessity Statement*: Patient requires hospitalization for multivessel CAD, requiring bypass evaluation Coding Level of Care Code Acute Sample Tailor for Dev Fwd Diagnoses Non-ST elevation FL (NSTEMI) I21.4 Uncontrolled type 2 diabetes with neuropathy E11.40; E11.65 Hypothyroid E03.9 Hypothyroidism type: acquired Hyperlipidemia E78.5 Fibromyalgia M79.7
--- NOTE | 2020-12-06 15:28 | PC.NURSE ---
2ml removed from TR band, no bleeding noted.
[2020-12-06 17:15] LABS: Glucose Point of Care 234 mg/dL (70-110)
[2020-12-07] VITALS (24 sets, daily range): BP systolic 105–172; BP diastolic 56–100; PULSE 60–105; RESP 4–25; TEMP 36.6–36.7; O2SAT 91–97
[2020-12-07] MEDS: nitroglycerin 1 gm/inch oint Pkt 0.5 INCH TOPICAL ×2 (02:06→08:43)
[2020-12-07 05:37] LABS: Basophils % 0.4 %; Eosinophils # 0.2 10^3/uL (0.0-0.8); Eosinophils % 3.3 %; Hematocrit 40.2 % (37.0-47.0); Hemoglobin 12.9 g/dL (11.5-15.3); Lymphocytes # 2.5 10^3/uL (0.8-4.8); Lymphocytes % 35.4 %; Mean Corpuscular HGB Conc 32.1 g/dL (30.0-36.0); Mean Corpuscular Hemoglobin 29.4 pg (28.0-34.0); Mean Corpuscular Volume 91.6 fL (81-99); Mean Platelet Volume 10.2 fL (7.4-10.4); Monocytes # 0.6 10^3/uL (0.2-0.9); Monocytes % 8.5 %; Neutrophils # 3.59 10^3/uL (1.8-7.7); Nucleated Red Blood Cells % 0 %; Platelet Count 252 10^3/cmm (130-400); Red Blood Count 4.39 10^6/uL (4.1-5.3); Red Cell Distribution Width 11.7 % (12.1-15.1); White Blood Count 6.9 10^3/uL (4.0-10.0)
[2020-12-07] MEDS: sodium chloride 0.9% 1,000 ML 75 ML IV ×2 (05:44→17:17)
[2020-12-07] MEDS: levothyroxine 150 mcg Tablet PO (05:44)
[2020-12-07 05:46] LABS: INR 0.99 (0.8-1.2); Partial Thromboplastin Time 29.3 SECONDS (23.9-36.7)
[2020-12-07 05:51] LABS: Alanine Aminotransferase 11 U/L (0-33); Albumin Level 3.2 g/dL (3.5-5.2); Alkaline Phosphatase 96 IU/L (35-105); Anion Gap 10.8 (5-19); Aspartate Amino Transferase 11 U/L (0-32); Blood Urea Nitrogen 14 mg/dL (8-23); Calcium 8.8 mg/dL (8.5-10.5); Carbon Dioxide 26 mmol/L (22-29); Chloride 105 mmol/L (98-107); Creatinine Clr Calc Pharmacy 70.0508; Globulin 2.3 g/dL (1.3-4.6); Glomerular Filtration Rate 122.3 mL/min (90-130); Glucose 271 mg/dL (65-115); Magnesium 1.8 mg/dL (1.7-2.3); Osmolality Calculated 296 mOsm/kg (285-295); Phosphorus 3.7 mg/dL (2.5-4.5); Potassium 3.8 mmol/L (3.5-5.1); Sodium 138 mmol/L (136-145); Total Bilirubin 0.4 mg/dL (0.15-1.2); Total Protein 5.5 g/dL (6.6-8.7)
[2020-12-07] MEDS: HYDROcodone-acetaminophen 10-325 mg Tablet 1 TAB PO ×4 (06:26→23:20)
[2020-12-07] MEDS: insulin glargine 100 units/1 mL 10 UNIT SUBCUT (06:33)
--- NOTE | 2020-12-07 07:00 | USCV_ITS ---
Lluvia Yasmani Age: 70 Gender: F : 1950 Exam Date: 12/07/2020 06:37 Ordering Phys: David Parra MD (And[place]) [email or web address] [email or web address] Technologist: Sabiha Mcmahon Exam Location: [facility] [place] Indication: Pre-op for CABG RIGHT LEFT LOWER EXTREMITY Diameter Diameter (cm) (cm) 0.38 High Thigh 0.36 0.25 Mid Thigh 0.24 0.17 Above Knee 0.21 0.22 Below Knee 0.23 0.15 Mid Calf 0.17 Ankle 0.13 RIGHT LEFT UPPER EXTREMITY The Upper Extremity section is not evaluated at this time Findings See measurements listed above. Pain still found to be easily compressible. Conclusions 1. Relatively small caliber patent veins bilaterally with no evidence of thrombosis. 2. The venous dimensions are as mentioned above 3. The vein at the mid calf level on the left side was not visualized Dr Rey Denis MD [facility] (Electronically Signed) Final Date: 07 December 2020 13:34 S
[2020-12-07 07:13] LABS: Alanine Aminotransferase 11 U/L (0-33); Albumin Level 3.2 g/dL (3.5-5.2); Alkaline Phosphatase 94 IU/L (35-105); Aspartate Amino Transferase 11 U/L (0-32); Free T4 Free Thyroxine 1.45 ng/dL (0.82-1.77); Globulin 2.3 g/dL (1.3-4.6); Thyroid Stimulating Hormone 0.02 uIU/mL (0.27-4.20); Total Bilirubin 0.4 mg/dL (0.15-1.2); Total Protein 5.5 g/dL (6.6-8.7)
--- NOTE | 2020-12-07 07:25 | PM.CONSULT ---
Providers/Reason For Consult Consulting Physican/Specialty*: [facility] [place]/cardiothoracic surgery Reason for Consult*: Severe coronary artery disease with depressed LV function/non-STEMI Requesting Physcian: Dr. Denis Attending Physician: Asad Vernon MD Primary Care Provider: William Chan MD History of Present Illness History of Present Illness Yasmani Teixeria is a 70 year old female who was admitted in the early hours yesterday presenting to the emergency department with complaints of anterior chest wall pain and radiation to the left arm. Patient complained of diaphoresis and dyspnea and also had 1 episode of vomiting with persistent nausea. Initial EKG revealed ST depression and pain was relieved fairly quickly after the introduction of nitroglycerin. She does have a troponin leak consistent with a non-STEMI. She had a visit to the emergency department back on November 13 of last year with similar symptoms but would not stay despite advice. Strong family history of coronary disease including bypass surgery being performed both on her brother and sister. She of diabetes with poor control. I do note that her hemoglobin A1c is over 10. Remote history of tobacco use several decades ago. Left heart catheterization was performed yesterday by Dr. Denis. This study with confirmatory echo reveals depressed ejection fraction of 40%. There is anterior mid distal and apical hypokinesia. Coronary angiogram revealed a 40% distal left main stenosis, and high-grade near 99% stenosis of the LAD with filling defect proximally. There is mid vessel disease of 85% and distal disease narrowing of 50 to 60%. Circumflex artery revealed an ostial lesion of near 99%. Right coronary artery has irregularities from 30% to 50%. Ms. Teixeira tolerated catheterization well has been pain-free since. She has been placed on a heparin and is in the ICU where she remained stable. Dr. Denis has spoken with her concerning the findings of the catheterization and the ultimate recommendation to consider surgery vascularization. She is agreeable. She has notified her son who will be here for surgery. He resides locally. I have personally viewed the left heart catheterization and conferred with Dr. Denis by phone. Review of Systems Const: Reports: fatigue; Denies: fever(s), chills, change in appetite, change in weight or night sweats Eyes: Denies: change in vision or blurry vision ENMT: Denies: odynophagia or hoarseness Card: Reports: chest pain and dyspnea on exertion; Denies: palpitations, irregular heart rhythm or edema Resp: Reports: dyspnea; Denies: productive cough or hemoptysis GI: Reports: nausea and vomiting; Denies: abdominal pain, dysphagia, heartburn or change in bowel habits : Denies: dysuria, urinary frequency, urinary urgency or urinary hesitancy Musc: Reports: muscle cramps; Denies: extremity pain or extremity swelling Skin/Breast: Denies: rash Neuro: Reports: headache(s); Denies: numbness in extremities, weakness in extremities or sensory changes Psych: Denies: anxiety, depression or change in appetite Endo: Denies: polyuria, polydipsia or cold intolerance Cristóbal/Lymph: Denies: easy bruising, easy bleeding, petechiae or enlarged lymph nodes Meds/Allergies Home Medications and Allergies Home Medications Medication Instructions Recorded Confirmed Last Taken Type blood sugar diagnostic #60 each 07/22/20 12/06/20 Unknown Rx blood-glucose meter #1 each 07/22/20 12/06/20 Unknown Rx pantoprazole 20 mg tablet,delayed 20 mg PO DAILY tab 07/22/20 12/06/20 12/05/20 08:00 History release zolpidem 10 mg PO BEDTIME PRN 08/24/20 12/06/20 12/04/20 21:00 History aspirin 325 mg PO DAILY 11/13/20 12/06/20 12/05/20 08:00 History glimepiride 4 mg PO BIDWMEAL 11/13/20 12/06/20 12/05/20 08:00 History hydrocodone-acetaminophen 1 tab PO Q6H PRN 11/13/20 12/06/20 11/12/20 History insulin glargine [Lantus Solostar 10 unit SUBCUT DAILY 11/13/20 12/06/20 12/05/20 08:00 History U-100 Insulin] levothyroxine 175 mcg PO DAILY 11/13/20 12/06/20 12/05/20 08:00 History Allergies Allergy/AdvReac Type Severity Reaction Status Date / Time codeine Allergy ADR-Abdominal Verified 11/13/20 17:00 Pain Current Medications Current Medications Generic Name Dose Route Start Last Admin Trade Name Freq PRN Reason Stop Dose Admin Acetaminophen 650 mg 12/06/20 02:04 12/06/20 05:30 Acetaminophen 325 Mg Tablet PO 650 mg Q6H PRN Administration Mild/Mod Pain Or Temp >/= 101 Hydrocodone Bitart/Acetaminophen 1 tab 12/06/20 14:30 12/07/20 06:26 Hydrocodone-Acetaminophen 10-325 Mg Tablet PO 1 tab Q6H PRN Administration Pain Aspirin 325 mg 12/06/20 02:15 12/06/20 09:59 Aspirin 325 Mg Ec Tablet PO 325 mg DAILY RANDY Administration Atorvastatin Calcium 40 mg 12/06/20 02:15 12/06/20 21:22 Atorvastatin 40 Mg Tablet PO 40 mg BEDTIME RANDY Administration Sodium Chloride 1,000 mls @ 75 mls/hr 12/06/20 02:15 12/07/20 05:44 Sodium Chloride 0.9% IV 75 mls/hr .[id number] RANDY Administration Insulin Aspart 0 unit 12/06/20 21:00 12/06/20 21:38 Insulin Aspart 100 Unit/1 Ml SUBCUT 4 unit BEDTIME RANDY Administration Protocol Insulin Aspart 0 unit 12/06/20 08:00 12/06/20 17:30 Insulin Aspart 100 Unit/1 Ml SUBCUT 10 unit TIDWM RANDY Administration Protocol Insulin Glargine 10 unit 12/07/20 07:00 12/07/20 06:33 Insulin Glargine 100 Units/1 Ml SUBCUT 10 unit 07 RANDY Administration Levothyroxine Sodium 150 mcg 12/07/20 06:00 12/07/20 05:44 Levothyroxine 150 Mcg Tablet PO 150 mcg QAM RANDY Administration Metoprolol Tartrate 25 mg 12/06/20 09:00 12/06/20 21:22 Metoprolol Tartrate 25 Mg Tablet PO 25 mg BID@0900,2100 RANDY Administration Nitroglycerin 0.4 mg 12/05/20 22:13 12/05/20 22:41 Nitroglycerin 0.4 Mg Sublingual Tablet SUBLINGUAL 1 tab Q5M PRN Administration CHEST PAIN Nitroglycerin 0.5 inch 12/06/20 02:15 12/07/20 02:06 Nitroglycerin 1 Gm/Inch Oint Pkt TOPICAL 0.5 inch Q6H RANDY Administration Ondansetron HCl 4 mg 12/06/20 02:04 12/06/20 07:47 Ondansetron 2 Mg/Ml Sdv 2 Ml IVP 4 mg Q8H PRN Administration vomiting, or N/V if npo Pantoprazole Sodium 40 mg 12/06/20 09:00 12/06/20 07:[address] 40 Mg Tablet PO 40 mg DAILY RANDY Administration Zolpidem Tartrate 10 mg 12/06/20 06:46 12/06/20 18:46 Zolpidem 10 Mg Tablet PO 10 mg BEDTIME PRN Administration Sleep PFSH Acute PFSH: Medical History Fibromyalgia On as needed hydrocodone and baclofen Hyperlipidemia Not currently on treatment Hypothyroid Ovarian cancer Treated with hysterectomy with salpingo-oophorectomy Uncontrolled type 2 diabetes with neuropathy Surgical History H/O: hysterectomy History of tonsillectomy Hx of appendectomy Hx of cholecystectomy Family History Sister Cancer uterine/cervix Mother Cancer cervix Social History Smoking and tobacco status: former smoker Alcohol intake: never Substance/Drug Use: never Lives independently: Yes Household members: none Additional social history: Smoked for few years in her 20s Female Reproductive History: : 4 Para: 2 Vitals/I&O/Wt Last Vital Signs Temp 98 F 12/07/20 04:00 Pulse 60 12/07/20 06:00 Resp 18 12/07/20 05:57 BP 107/56 12/07/20 05:00 Pulse Ox 93 12/07/20 05:57 12/06/20 12/07/20 12/07/20 22:59 06:59 14:59 Intake Total 1440 / 1440 917.5 / 2357.5 Output Total 800 / 800 Balance 640 / 640 917.5 / 1557.5 Weight last 48 hrs Weight 180 lb Physical Exam Const: COMMON NORMALS: patient oriented x3 and alert ORIENTATION/CONSCIOUSNESS: Yes oriented to person, Yes oriented to place and Yes oriented to time HENMT: COMMON NORMALS: normocephalic HEAD & SCALP: normocephalic Neck/C-Spine: COMMON NORMALS: full ROM, supple, no JVD and No carotid bruits GENERAL: Yes trachea midline CERVICAL SPINE: Yes cervical ROM normal Chest: COMMONS NORMALS: normal inspection of the chest and normal palpation of entire chest wall Resp: COMMON NORMALS: normal respiratory effort, No use of accessory muscles, clear to auscultation bilaterally and percussion normal EFFORT & INSPECTION: Yes able to speak in complete sentences and Yes symmetric chest movement AUSCULTATION: clear to auscultation bilaterally PERCUSSION: percussion normal Cardio: COMMON NORMALS: no JVD, regular rate, regular rhythm, S1 normal heart sound present, S2 normal heart sound present, No gallops present (Cardio), No murmurs present (Cardio) and No rub (Cardio) JUGULAR VENOUS DISTENTION: no JVD RATE: regular rate RHYTHM: regular rhythm HEART SOUNDS: S1 normal heart sound present and S2 normal heart sound present PERIPHERAL PULSES: radial pulses present positive bilateral 2+ and dorsalis pedis present positive bilateral 2+ Neuro: COMMON NORMALS: patient oriented x3, no focal motor deficits and no sensory deficits noted SENSORIUM/ORIENTATION: Yes alert, Yes oriented to person, Yes oriented to place and Yes oriented to time GAIT: Yes Normal gait present A&P Assessment and plan (1) Non-ST elevation ID (NSTEMI): 70-year-old diabetic female with strong family history for coronary disease and recent left heart catheterization after presenting with non-STEMI. She has severe proximal disease of the LAD and circumflex system and depressed ejection fraction 40%. Noncritical disease of the RCA. Given her history of diabetes mellitus, two-vessel proximal coronary artery disease depressed ejection fraction, I concur with a consensus from our cardiology colleagues that surgical revascularization would ideally be the best option statistically. Rationale for this was carefully and frankly discussed with Ms. Teixeira. I reviewed with her the anatomic findings of her left heart catheterization and also discussed the details of surgery as well as the postoperative course. Details and risks of CABG were carefully and frankly reviewed. Risks discussed include the possibility of , stroke, heart attack, major bleeding possibly requiring the need to reopen chest, infection, pneumonia, organ failure, failure to benefit, early closure of the bypass grafts, inability to complete the procedure, prolonged hospitalization, blood clots to lungs or other organs, need for further interventions, continued pain after surgery, need for future surgery, and possible long-term bleeding risk secondary to medication requirements. All questions were answered. Her increased risks related to diabetes mellitus, relatively small targets, and recent non-STEMI were frankly discussed. I reviewed with her our educational teaching materials. She appears eager to proceed with plans for surgery. As she related to her family members, she states prepared for CABG. We will continue with the routine preoperative evaluations and preparations for surgery tomorrow morning. I will keep in close contact with Dr. Denis and our hospitalist colleagues during the perioperative period. Status: Acute Consult Attestations Medical Necessity Statement: Severe two-vessel coronary artery disease with non-STEMI Time Spent in Patient Care: Greater than 35 minutes Coding Level of Care Code Acute Sole Seamer for [employer] Fwd Diagnoses Non-ST elevation ID (NSTEMI) I21.4
--- NOTE | 2020-12-07 08:30 | PC.PT ---
pt instructed in sternal precautions and transfers in / out of bed and chair without using arms. Discussed home situation, lives alone, no steps into house. Son lives next door. currently indep limited community ambulator. Will continue post surgery.
[2020-12-07] MEDS: pantoprazole DR 40 mg Tablet PO (08:51)
[2020-12-07] MEDS: metoprolol tartrate 25 mg Tablet PO ×2 (08:51→20:15)
[2020-12-07] MEDS: aspirin 325 mg EC Tablet PO (08:51)
[2020-12-07] MEDS: baclofen 10 mg Tablet PO (08:52)
[2020-12-07] MEDS: chlorhexidine gluconate 0.12% Btl 473 mL 15 ML MUCOUS MEM ×2 (08:52→17:17)
[2020-12-07] MEDS: ALPRAZolam 0.25 mg Tablet PO ×2 (09:26→22:19)
--- NOTE | 2020-12-07 09:40 | P.PN_ITS ---
Subjective Subjective: Interval history: This morning patient was examined, she understands that there is plans on having open heart surgery tomorrow, by Dr. Parra, she has no particular complaints, no chest pain, no shortness of breath, no lightheadedness, dizziness, nausea, vomiting Vitals/I&O/Wt Last Vital Signs Temp 98 F 12/07/20 04:00 Pulse 85 12/07/20 09:00 Resp 18 12/07/20 09:00 BP 135/87 12/07/20 09:00 Pulse Ox 93 12/07/20 09:00 12/06/20 12/07/20 12/07/20 22:59 06:59 14:59 Intake Total 1440 / 1440 917.5 / 2357.5 250 / 250 Output Total 800 / 800 Balance 640 / 640 917.5 / 1557.5 250 / 250 Weight last 48 hrs Weight 81.647 kg Physical Exam Const: COMMON NORMALS: no acute distress and patient oriented x3 HENMT: COMMON NORMALS: normocephalic HEAD & SCALP: normocephalic Neck/C-Spine: COMMON NORMALS: no JVD Resp: COMMON NORMALS: normal respiratory effort, No retractions, No use of accessory muscles and clear to auscultation bilaterally AUSCULTATION: clear to auscultation bilaterally Cardio: COMMON NORMALS: no JVD, regular rate, regular rhythm, S1 normal heart sound present and S2 normal heart sound present RATE: regular rate RHYTHM: regular rhythm HEART SOUNDS: S1 normal heart sound present and S2 normal heart sound present GI: COMMON NORMALS: Normal to inspection, nondistended, normoactive bowel sounds present, Soft to palpation, non-tender, No hepatosplenomegaly present, no masses and no bruits PALPATION: Yes Soft to palpation and Yes No hepatosplenomegaly present Extremity: COMMON NORMALS: capillary refill normal, no clubbing, cyanosis or edema, no calf tenderness and no pedal edema Neuro: COMMON NORMALS: patient oriented x3 Psych: COMMON NORMALS: mental status grossly normal Data : 12/07/20 04:40 12/07/20 04:40 A&P Assessment and plan (1) Non-ST elevation [place] (NSTEMI): -Multivessel CAD -Will require cardiothoracic surgery evaluation, and bypass, n.p.o. for night, plans for surgery tomorrow morning -Continue aspirin, statin, beta-kj -Started on heparin drip this morning -Started on insulin drip later on this afternoon -Continue to monitor for chest pain, telemetry monitoring -Continue to monitor in ICU -Full code -Heparin for DVT prophylaxis, SCDs Status: Acute (2) Uncontrolled type 2 diabetes with neuropathy: Usually on insulin and glipizide, seeing Dr Solorio Hemoglobin A1c 10.7 Hold Lantus Insulin sliding scale Status: Chronic (3) Hypothyroid: On levothyroxine, sees Dr Solorio Status: Acute Qualifiers: Hypothyroidism type: acquired Qualified Code(s): E03.9 - Hypothyroidism, unspecified (4) Hyperlipidemia: Not currently on treatment Status: Inactive (5) Fibromyalgia: On hydrocodone and prn baclofen Status: Acute Additional A&P Information GI prophylaxis Continue home pain management as needed medicines Supportive care otherwise Plans discussed with patient and she was given an opportunity to ask questions Full code Attestations Medical Necessity Statement*: Patient requires hospitalization, for NSTEMI, multivessel CAD, proceeding to bypass surgery Coding Level of Care Code Acute Regional Production Manager for [facility] Fwd Diagnoses Non-ST elevation RI (NSTEMI) I21.4 Uncontrolled type 2 diabetes with neuropathy E11.40; E11.65 Hypothyroid E03.9 Hypothyroidism type: acquired Hyperlipidemia E78.5 Fibromyalgia M79.7
--- NOTE | 2020-12-07 09:40 | PC.NURSE ---
up in room ambulating and to bathroom episode of chest pain noted nitro paste to chest and back bedrest at this time notified md and am meds given ... chest pain subside at this time very anxious about procedure in am medication given to help relax , will continue to monitor for any chest pain
--- NOTE | 2020-12-07 10:07 | P.ANESASSM_ITS ---
Pre-Anesthetic Assessment Pre-Anesthetic Assessment: Height/Weight: Height 1.65 m Weight 81.647 kg Temp Pulse Resp BP Pulse Ox 98 F 85 18 135/87 93 12/07/20 04:00 12/07/20 09:00 12/07/20 09:00 12/07/20 09:00 12/07/20 09:00 Preop Diagnosis: Non-ST elevation myocardial infarction/unstable angina Proposed Procedure: Operation Date: 12/08/20 10:00 Proposed Procedures p CABG(Not Applicable) - David Parra MD Was Beta Javi taken within 24 hours: Yes Social: Social History: No alcohol and No tobacco Comment: H/O smoking, quit Exam: Pre-Anes Outpt Exam: alert, oriented x 3, clear to auscultation bilaterally and regular rate & rhythm Airway: Submandibular: WNL Cervical ROM: WNL MP: 2 Additional comment s: Upper denture, lower arch very poor with multiple teeth cracked/chipped and m issing Pulmonary: Pulmonary: COPD CV/HEM: CV/HEM: Angina (Unstable), CAD, CHF and HTN Comments: EF 40% : : Chronic renal Insufficiency Hepatic: Hepatic: None reported GI: GI: GERD Metabolic: Metabolic: DM and Thyroid Comments: Poorly controlled DM Musc/skel: Musc/skel: Fibromyalgia Neuropsych: Neuropsych: Anxiety Anesthetic Plan: ASA status: 4 Anesthesia: General Other: A.line, CVL/PAC, discussed transfusion with patient and she is willing to accept Risk of > 500 ml blood loss (7ml/kg in children): Yes, adequate IV access and fluids planned Meds/Allergies Current Medications: Current Medications Generic Name Dose Route Start Last Admin Trade Name Freq PRN Reason Stop Dose Admin Acetaminophen 650 mg 12/06/20 02:04 12/06/20 05:30 Acetaminophen 32 5 Mg Tablet PO 650 mg Q6H PRN Administration Mild/Mod Pain Or Temp >/= 101 Hydrocodone Bitart /Acetaminophen 1 tab 12/06/20 14:30 12/07/20 06:26 Hydrocodone-Acet aminophen 10-325 M g Tablet PO 1 tab Q6H PRN Administration Pain Alprazolam 0.25 mg 12/06/20 14:11 12/07/20 09:26 Alprazolam 0.25 Mg Tablet PO 0.25 mg TID PRN Administration ANXIETY Aspirin 325 mg 12/06/20 02:15 12/07/20 08:51 Aspirin 325 Mg E c Tablet PO 325 mg DAILY RANDY Administration Atorvastatin Calci um 40 mg 12/06/20 02:15 12/06/20 21:22 Atorvastatin 40 Mg Tablet PO 40 mg BEDTIME RANDY Administration Baclofen 10 mg 12/06/20 06:46 12/07/20 08:52 Baclofen 10 Mg T ablet PO 10 mg BID PRN Administration Muscle Spasm Chlorhexidine Gluc reinier 15 ml 12/07/20 09:00 12/07/20 08:52 Chlorhexidine Gl uconate 0.12% Btl 473 Ml MUCOUS MEM 1 applic BID RANDY Administration Sodium Chloride 1,000 mls @ 75 ml s/hr 12/06/20 02:15 12/07/20 05:44 Sodium Chloride 0.9% IV 75 mls/hr .[id number] RANDY Administration Insulin Aspart 0 unit 12/06/20 21:00 12/06/20 21:38 Insulin Aspart 1 00 Unit/1 Ml SUBCUT 4 unit BEDTIME RANDY Administration Protocol Insulin Aspart 0 unit 12/06/20 08:00 12/07/20 07:53 Insulin Aspart 1 00 Unit/1 Ml SUBCUT 6 unit TIDWM [facility] Administration Protocol Insulin Glargine 10 unit 12/07/20 07:00 12/07/20 06:33 Insulin Glargine 100 Units/1 Ml SUBCUT 10 unit 07 RANDY Administration Metoprolol Tartrat e 25 mg 12/06/20 09:00 12/07/20 08:51 Metoprolol Tartr ate 25 Mg Tablet PO 25 mg BID@0900,2100 RANDY Administration Nitroglycerin 0.4 mg 12/05/20 22:13 12/05/20 22:41 Nitroglycerin 0. 4 Mg Sublingual Ta blet SUBLINGUAL 1 tab Q5M PRN Administration CHEST PAIN Nitroglycerin 0.5 inch 12/06/20 02:15 12/07/20 08:43 Nitroglycerin 1 Gm/Inch Oint Pkt TOPICAL 0.5 inch Q6H RANDY Administration Ondansetron HCl 4 mg 12/06/20 02:04 12/06/20 07:47 Ondansetron 2 Mg /Ml Sdv 2 Ml IVP 4 mg Q8H PRN Administration vomiting, or N/V if npo Pantoprazole Sodiu m 40 mg 12/06/20 09:00 12/07/20 08:[address] 40 Mg Tablet PO 40 mg DAILY RANDY Administration Zolpidem Tartrate 10 mg 12/06/20 06:46 12/06/20 18:46 Zolpidem 10 Mg T ablet PO 10 mg BEDTIME PRN Administration Sleep PFSH Anesthesia PFSH: Medical History Fibromyalgia On as needed hydrocodone and baclofen Hyperlipidemia Not currently on treatment Hypothyroid Ovarian cancer Treated with hysterectomy with salpingo-oophorectomy Uncontrolled type 2 diabetes with neuropathy Surgical History H/O: hysterectomy History of tonsillectomy Hx of appendectomy Hx of cholecystectomy Family History Sister Cancer uterine/cervix Mother Cancer cervix Social History Smoking and tobacco status: former smoker Alcohol intake: never Substance/Drug Use: never Lives independently: Yes Household members: none Additional social history: Smoked for few years in her 20s Female Reproductive History: : 4 Para: 2 Data Anesthesia CBC & Chem 7: 12/07/20 04:40 12/07/20 04:40 Other Labs: Laboratory Results - last 48 hr 12/05/20 12/05/20 12/05/20 22:28 22:28 22:28 WBC 7.4 RBC 4.95 Hgb 14.6 Hct 44.0 MCV 88.9 MCH 29.5 MCHC 33.2 RDW 11.6 L Plt Count 296 MPV 9.9 Neut % (Auto) 48.2 Lymph % (Auto) 40.8 [place] % (Auto) 7.2 Eos % (Auto) 3.2 Baso % (Auto) 0.5 Neut # (Auto) 3.56 Lymph # (Auto) 3.0 [place] # (Auto) 0.5 Eos # (Auto) 0.2 Baso # (Auto) 0.0 Nucleated RBC % (auto) 0 Nucleated RBCs # 0.0 PT 12.10 INR 0.87 APTT Sodium 137 Potassium 4.5 Chloride 101 Carbon Dioxide 25 Anion Gap 15.5 BUN 15 Creatinine 0.6 GFR Calculation 99.1 Glucose 408 H POC Glucose Estimat Average Glucose Hemoglobin A1c Calculated Osmolality 302 H Calcium 9.7 Phosphorus Magnesium Total Bilirubin 0.2 Direct Bilirubin AST 11 ALT 14 Alkaline Phosphatase 136 H Troponin T Baseline Troponin T 120 Minute Delta Troponin T Troponin T Hi Sens 6Hr Troponin T Hi Sens 6Hr Delta NT-Pro-B Natriuret Pep 41 Total Protein 6.5 L Albumin 3.9 Globulin 2.6 Triglycerides Cholesterol LDL Cholesterol, Calc HDL Cholesterol LDL/HDL Ratio Cholesterol/HDL Ratio Lipase 27 TSH Free T4 Blood Type Rho(D) Type Antibody Screen Crossmatch 12/05/20 12/06/20 12/06/20 22:28 00:22 05:20 WBC RBC Hgb Hct MCV MCH MCHC RDW Plt Count MPV Neut % (Auto) Lymph % (Auto) [place] % (Auto) Eos % (Auto) Baso % (Auto) Neut # (Auto) Lymph # (Auto) [place] # (Auto) Eos # (Auto) Baso # (Auto) Nucleated RBC % (auto) Nucleated RBCs # PT INR APTT Sodium Potassium Chloride Carbon Dioxide Anion Gap BUN Creatinine GFR Calculation Glucose POC Glucose Estimat Average Glucose Hemoglobin A1c Calculated Osmolality Calcium Phosphorus Magnesium Total Bilirubin Direct Bilirubin AST ALT Alkaline Phosphatase Troponin T Baseline 13 H Troponin T 120 Minute 60.20 H Delta Troponin T 47.20 H* Troponin T Hi Sens 6Hr 79.14 H Troponin T Hi Sens 6Hr Delta 66.14 H* NT-Pro-B Natriuret Pep Total Protein Albumin Globulin Triglycerides Cholesterol LDL Cholesterol, Calc HDL Cholesterol LDL/HDL Ratio Cholesterol/HDL Ratio Lipase TSH Free T4 Blood Type Rho(D) Type Antibody Screen Crossmatch 12/06/20 12/06/20 12/06/20 05:20 05:20 05:20 WBC RBC Hgb Hct MCV MCH MCHC RDW Plt Count MPV Neut % (Auto) Lymph % (Auto) [place] % (Auto) Eos % (Auto) Baso % (Auto) Neut # (Auto) Lymph # (Auto) [place] # (Auto) Eos # (Auto) Baso # (Auto) Nucleated RBC % (auto) Nucleated RBCs # PT 13.00 INR 0.96 APTT 34.1 Sodium 134 L Potassium 4.1 Chloride 101 Carbon Dioxide 27 Anion Gap 10.1 BUN 13 Creatinine 0.4 L GFR Calculation 158.3 H Glucose 287 H POC Glucose Estimat Average Glucose 260 Hemoglobin A1c 10.7 H Calculated Osmolality 289 Calcium 9.5 Phosphorus Magnesium 1.6 L Total Bilirubin Direct Bilirubin AST ALT Alkaline Phosphatase Troponin T Baseline Troponin T 120 Minute Delta Troponin T Troponin T Hi Sens 6Hr Troponin T Hi Sens 6Hr Delta NT-Pro-B Natriuret Pep 278 H Total Protein Albumin Globulin Triglycerides 150 Cholesterol 205 H LDL Cholesterol, Calc 130 H HDL Cholesterol 45 L LDL/HDL Ratio 2.89 Cholesterol/HDL Ratio 4.56 H Lipase TSH Free T4 Blood Type Rho(D) Type Antibody Screen Crossmatch 12/06/20 12/06/20 12/06/20 06:52 11:09 17:10 WBC RBC Hgb Hct MCV MCH MCHC RDW Plt Count MPV Neut % (Auto) Lymph % (Auto) [place] % (Auto) Eos % (Auto) Baso % (Auto) Neut # (Auto) Lymph # (Auto) [place] # (Auto) Eos # (Auto) Baso # (Auto) Nucleated RBC % (auto) Nucleated RBCs # PT INR APTT Sodium Potassium Chloride Carbon Dioxide Anion Gap BUN Creatinine GFR Calculation Glucose POC Glucose 242 H 202 H 234 H Estimat Average Glucose Hemoglobin A1c Calculated Osmolality Calcium Phosphorus Magnesium Total Bilirubin Direct Bilirubin AST ALT Alkaline Phosphatase Troponin T Baseline Troponin T 120 Minute Delta Troponin T Troponin T Hi Sens 6Hr Troponin T Hi Sens 6Hr Delta NT-Pro-B Natriuret Pep Total Protein Albumin Globulin Triglycerides Cholesterol LDL Cholesterol, Calc HDL Cholesterol LDL/HDL Ratio Cholesterol/HDL Ratio Lipase TSH Free T4 Blood Type Rho(D) Type Antibody Screen Crossmatch 12/06/20 12/07/20 12/07/20 21:38 04:40 04:40 WBC RBC Hgb Hct MCV MCH MCHC RDW Plt Count MPV Neut % (Auto) Lymph % (Auto) [place] % (Auto) Eos % (Auto) Baso % (Auto) Neut # (Auto) Lymph # (Auto) [place] # (Auto) Eos # (Auto) Baso # (Auto) Nucleated RBC % (auto) Nucleated RBCs # PT 13.40 INR 0.99 APTT 29.3 Sodium Cancelled Potassium Cancelled Chloride Cancelled Carbon Dioxide Cancelled Anion Gap Cancelled BUN Cancelled Creatinine Cancelled GFR Calculation Cancelled Glucose Cancelled POC Glucose Estimat Average Glucose Hemoglobin A1c Calculated Osmolality Cancelled Calcium Cancelled Phosphorus Magnesium Total Bilirubin 0.4 Direct Bilirubin 0.20 AST 11 ALT 11 Alkaline Phosphatase 94 Troponin T Baseline Troponin T 120 Minute Delta Troponin T Troponin T Hi Sens 6Hr Troponin T Hi Sens 6Hr Delta NT-Pro-B Natriuret Pep Total Protein 5.5 L Albumin 3.2 L Globulin 2.3 Triglycerides Cholesterol LDL Cholesterol, Calc HDL Cholesterol LDL/HDL Ratio Cholesterol/HDL Ratio Lipase TSH 0.02 L Free T4 1.45 Blood Type O Positive Rho(D) Type Positive Antibody Screen Negative Crossmatch See Detail 12/07/20 12/07/20 04:40 04:40 WBC 6.9 RBC 4.39 Hgb 12.9 Hct 40.2 MCV 91.6 MCH 29.4 MCHC 32.1 RDW 11.7 L Plt Count 252 MPV 10.2 Neut % (Auto) 52.0 Lymph % (Auto) 35.4 [place] % (Auto) 8.5 Eos % (Auto) 3.3 Baso % (Auto) 0.4 Neut # (Auto) 3.59 Lymph # (Auto) 2.5 [place] # (Auto) 0.6 Eos # (Auto) 0.2 Baso # (Auto) 0.0 Nucleated RBC % (auto) 0 Nucleated RBCs # 0.0 PT INR APTT Sodium 138 Potassium 3.8 Chloride 105 Carbon Dioxide 26 Anion Gap 10.8 BUN 14 Creatinine 0.5 GFR Calculation 122.3 Glucose 271 H POC Glucose Estimat Average Glucose Hemoglobin A1c Calculated Osmolality 296 H Calcium 8.8 Phosphorus 3.7 Magnesium 1.8 Total Bilirubin 0.4 Direct Bilirubin AST 11 ALT 11 Alkaline Phosphatase 96 Troponin T Baseline Troponin T 120 Minute Delta Troponin T Troponin T Hi Sens 6Hr Troponin T Hi Sens 6Hr Delta NT-Pro-B Natriuret Pep Total Protein 5.5 L Albumin 3.2 L Globulin 2.3 Triglycerides Cholesterol LDL Cholesterol, Calc HDL Cholesterol LDL/HDL Ratio Cholesterol/HDL Ratio Lipase TSH Free T4 Blood Type Rho(D) Type Antibody Screen Crossmatch Cardiac Studies: No Data to Display
--- NOTE | 2020-12-07 10:18 | PM.PN ---
Subjective Subjective: Interval history: This patient underwent cardiac arrest yesterday and was found to have severe two-vessel coronary artery disease including some distal left main involvement. She had some tight feeling in the chest this morning but is feeling okay at this time. She has been having headache with the nitro paste. No unusual shortness of breath. No fever or chills. No cough. No other specific complaints. Medications: Medication Review Details: Current Medications Acetaminophen (Acetaminophen 325 Mg Tablet) 650 mg PO Q6H PRN PRN Reason: Mild/Mod Pain Or Temp >/= 101 Last Admin: 12/06/20 05:30 Dose: 650 mg Documented by: Acetaminophen (Acetaminophen 325 Mg Tablet) 650 mg PO Q6H PRN PRN Reason: MILD PAIN Hydrocodone Bitart/Acetaminophen (Hydrocodone-Acetaminophen 10-325 Mg Tablet) 1 tab PO Q6H PRN PRN Reason: Pain Last Admin: 12/07/20 06:26 Dose: 1 tab Documented by: Alprazolam (Alprazolam 0.25 Mg Tablet) 0.25 mg PO TID PRN PRN Reason: ANXIETY Last Admin: 12/07/20 09:26 Dose: 0.25 mg Documented by: Aspirin (Aspirin 325 Mg Ec Tablet) 325 mg PO DAILY [facility] Last Admin: 12/07/20 08:51 Dose: 325 mg Documented by: Atorvastatin Calcium (Atorvastatin 40 Mg Tablet) 40 mg PO BEDTIME [facility] Last Admin: 12/06/20 21:22 Dose: 40 mg Documented by: Atropine Sulfate (Atropine 1 Mg/Ml Sdv 1 Ml) 0.5 mg IVP PRN PRN PRN Reason: Symptomatic bradycardia Baclofen (Baclofen 10 Mg Tablet) 10 mg PO BID PRN PRN Reason: Muscle Spasm Last Admin: 12/07/20 08:52 Dose: 10 mg Documented by: Chlorhexidine Gluconate (Chlorhexidine Gluconate 0.12% Btl 473 Ml) 15 ml MUCOUS MEM BID [facility] Last Admin: 12/07/20 08:52 Dose: 1 applic Documented by: Glucagon (Glucagon 1 Mg/Ml Inj 1 Ml) 1 mg IM ONCE PRN; Protocol PRN Reason: Adult Acute Hypoglycemia Prot. Heparin Sodium (Beef Lung) (Heparin 5,000 Unit/Ml Inj 1 Ml) 0 unit IV PRN PRN; Protocol PRN Reason: Heparin weight-base protocol Sodium Chloride (Sodium Chloride 0.9%) 1,000 mls @ 75 mls/hr IV .[id number] [facility] Last Admin: 12/07/20 05:44 Dose: 75 mls/hr Documented by: Cefuroxime Sodium 1,500 mg/ (Sodium Chloride) 50 mls @ 100 mls/hr IV PLASTER MOLDER ONE; Protocol Stop: 12/08/20 06:29 Papaverine HCl 240 mg/ N/A/ (Sodium Chloride) 40 mls @ 0 mls/hr IV ONCE ONE Stop: 12/08/20 07:01 Cefuroxime Sodium 1,500 mg/ (Sodium Chloride) 50 mls @ 100 mls/hr IV ONCE ONE Stop: 12/08/20 12:29 Heparin Sodium/Sodium Chloride (Heparin Drip) 25,000 unit in 500 mls @ 0 mls/hr IV .Q0M [facility]; Protocol Nitroglycerin/Dextrose (Nitroglycerin Drip) 50 mg in 250 mls @ 0 mls/hr IV .Q0M RANDY; Protocol Insulin Aspart (Insulin Aspart 100 Unit/1 Ml) 0 unit SUBCUT BEDTIME [facility]; Protocol Last Admin: 12/06/20 21:38 Dose: 4 unit Documented by: Insulin Aspart (Insulin Aspart 100 Unit/1 Ml) 0 unit SUBCUT TIDWM [facility]; Protocol Last Admin: 12/07/20 07:53 Dose: 6 unit Documented by: Insulin Glargine (Insulin Glargine 100 Units/1 Ml) 10 unit SUBCUT 07 [facility] Last Admin: 12/07/20 06:33 Dose: 10 unit Documented by: Levothyroxine Sodium (Levothyroxine 125 Mcg Tablet) 125 mcg PO QAM [facility] Magnesium Hydroxide (Magnesium Hydroxide 30 Ml Udc) 30 ml PO DAILY PRN PRN Reason: CONSTIPATION Metoprolol Tartrate (Metoprolol Tartrate 25 Mg Tablet) 25 mg PO BID@0900,2100 [facility] Last Admin: 12/07/20 08:51 Dose: 25 mg Documented by: Mupirocin (Mupirocin Oint 22 Gm) 1 applic NASAL BID [facility] Naloxone HCl (Naloxone 0.4 Mg/Ml Sdv) 0.1 mg IVP Q2M PRN PRN Reason: RESPIRATORY RATE < 8/MIN Nitroglycerin (Nitroglycerin 0.4 Mg Sublingual Tablet) 0.4 mg SUBLINGUAL Q5M PRN PRN Reason: CHEST PAIN Last Admin: 12/05/20 22:41 Dose: 1 tab Documented by: Ondansetron HCl (Ondansetron 2 Mg/Ml Sdv 2 Ml) 4 mg IVP Q8H PRN PRN Reason: vomiting, or N/V if npo Last Admin: 12/06/20 07:47 Dose: 4 mg Documented by: Pantoprazole Sodium (Pantoprazole Dr 40 Mg Tablet) 40 mg PO DAILY RANDY Last Admin: 12/07/20 08:51 Dose: 40 mg Documented by: Zolpidem Tartrate (Zolpidem 10 Mg Tablet) 10 mg PO BEDTIME PRN PRN Reason: Sleep Last Admin: 12/06/20 18:46 Dose: 10 mg Documented by: Vitals/I&O/Wt Last Vital Signs Temp 98 F 12/07/20 04:00 Pulse 85 12/07/20 09:00 Resp 18 12/07/20 09:00 BP 135/87 12/07/20 09:00 Pulse Ox 93 12/07/20 09:00 12/06/20 12/07/20 12/07/20 22:59 06:59 14:59 Intake Total 1440 / 1440 917.5 / 2357.5 250 / 250 Output Total 800 / 800 Balance 640 / 640 917.5 / 1557.5 250 / 250 Weight last 48 hrs Weight 180 lb Physical Exam Narrative: EXAM NARRATIVE: GENERAL: The patient is alert and oriented times three. Not in any acute distress. HEENT: No significant pallor, icterus or lymphadenopathy. Oral cavity: There are no mucous membrane lesions. NECK: Trachea appears to be central. No masses noted. No JVD or thyromegaly appreciated. No carotid bruit. RESPIRATORY: Chest is symmetrical. No intercostals muscle retraction or any accessory muscle activation. There is no chest wall tenderness. Breath sounds are heard bilaterally. No rales or rhonchi heard. No evidence of any consolidation. BREASTS: Deferred. HEART: T the PMI could not be palpated. No other palpable precordial events. S1 and S2 are normal. No S3 or S4 heard. No pericardial rub or any click heard. ABDOMEN: No vessel pulsations or distention. No tenderness. No organomegaly appreciated. No abdominal bruit. Bowel sounds are normally heard. : Deferred. RECTAL: Deferred. LYMPHATIC: No lymphadenopathy noted in the neck or groin. EXTREMITIES: No edema or cyanosis. No clubbing. The radial artery puncture site has no hematoma or bleeding. Good distal pulses. MUSCULOSKELETAL: No acute joint deformities or swelling SKIN: There are no significant scars or skin rash noted. NEUROPSYCHIATRIC: The patient is alert and oriented x3. Appears to be somewhat nervous. The higher functions are grossly within normal limits. No tremors or rigidity noted. Const: COMMON NORMALS: alert Resp: COMMON NORMALS: clear to auscultation bilaterally AUSCULTATION: clear to auscultation bilaterally Neuro: SENSORIUM/ORIENTATION: Yes alert Data : 12/07/20 04:40 12/07/20 04:40 Other Labs: Laboratory Last Values WBC 6.9 10^3/uL (4.0-10.0) 12/07/20 04:40 RBC 4.39 10^6/uL (4.1-5.3) 12/07/20 04:40 Hgb 12.9 g/dL (11.5-15.3) 12/07/20 04:40 Hct 40.2 % (37.0-47.0) 12/07/20 04:40 MCV 91.6 fL (81-99) 12/07/20 04:40 MCH 29.4 pg (28.0-34.0) 12/07/20 04:40 MCHC 32.1 g/dL (30.0-36.0) 12/07/20 04:40 RDW 11.7 % (12.1-15.1) L 12/07/20 04:40 Plt Count 252 10^3/cmm (130-400) 12/07/20 04:40 MPV 10.2 fL (7.4-10.4) 12/07/20 04:40 Neut % (Auto) 52.0 % 12/07/20 04:40 Lymph % (Auto) 35.4 % 12/07/20 04:40 [place] % (Auto) 8.5 % 12/07/20 04:40 Eos % (Auto) 3.3 % 12/07/20 04:40 Baso % (Auto) 0.4 % 12/07/20 04:40 Neut # (Auto) 3.59 10^3/uL (1.8-7.7) 12/07/20 04:40 Lymph # (Auto) 2.5 10^3/uL (0.8-4.8) 12/07/20 04:40 Gregory # (Auto) 0.6 10^3/uL (0.2-0.9) 12/07/20 04:40 Eos # (Auto) 0.2 10^3/uL (0.0-0.8) 12/07/20 04:40 Baso # (Auto) 0.0 10^3/uL (0.0-0.1) 12/07/20 04:40 Nucleated RBC % (auto) 0 % 12/07/20 04:40 Nucleated RBCs # 0.0 /100WBC 12/07/20 04:40 PT 13.40 SECONDS (12.1-14.9) 12/07/20 04:40 INR 0.99 (0.8-1.2) 12/07/20 04:40 APTT 29.3 SECONDS (23.9-36.7) 12/07/20 04:40 Sodium 138 mmol/L (136-145) 12/07/20 04:40 Sodium Cancelled 12/07/20 04:40 Potassium 3.8 mmol/L (3.5-5.1) 12/07/20 04:40 Potassium Cancelled 12/07/20 04:40 Chloride 105 mmol/L (98-107) 12/07/20 04:40 Chloride Cancelled 12/07/20 04:40 Carbon Dioxide 26 mmol/L (22-29) 12/07/20 04:40 Carbon Dioxide Cancelled 12/07/20 04:40 Anion Gap 10.8 (5-19) 12/07/20 04:40 Anion Gap Cancelled 12/07/20 04:40 BUN 14 mg/dL (8-23) 12/07/20 04:40 BUN Cancelled 12/07/20 04:40 Creatinine 0.5 mg/dL (0.5-0.9) 12/07/20 04:40 Creatinine Cancelled 12/07/20 04:40 GFR Calculation 122.3 mL/min (90-130) 12/07/20 04:40 GFR Calculation Cancelled 12/07/20 04:40 Glucose 271 mg/dL (65-115) H 12/07/20 04:40 Glucose Cancelled 12/07/20 04:40 POC Glucose 234 mg/dL (70-110) H 12/06/20 17:10 Estimat Average Glucose 260 12/06/20 05:20 Hemoglobin A1c 10.7 % (4.0-6.0) H 12/06/20 05:20 Calculated Osmolality 296 mOsm/kg (285-295) H 12/07/20 04:40 Calculated Osmolality Cancelled 12/07/20 04:40 Calcium 8.8 mg/dL (8.5-10.5) 12/07/20 04:40 Calcium Cancelled 12/07/20 04:40 Phosphorus 3.7 mg/dL (2.5-4.5) 12/07/20 04:40 Magnesium 1.8 mg/dL (1.7-2.3) 12/07/20 04:40 Total Bilirubin 0.4 mg/dL (0.15-1.2) 12/07/20 04:40 Total Bilirubin 0.4 mg/dL (0.15-1.2) 12/07/20 04:40 Direct Bilirubin 0.20 mg/dL (0.00-0.30) 12/07/20 04:40 AST 11 U/L (0-32) 12/07/20 04:40 AST 11 U/L (0-32) 12/07/20 04:40 ALT 11 U/L (0-33) 12/07/20 04:40 ALT 11 U/L (0-33) 12/07/20 04:40 Alkaline Phosphatase 94 IU/L (35-105) 12/07/20 04:40 Alkaline Phosphatase 96 IU/L (35-105) 12/07/20 04:40 Troponin T Baseline 13 ng/L (0-10) H 12/05/20 22:28 Troponin T 120 Minute 60.20 ng/L (0-10) H 12/06/20 00:22 Delta Troponin T 47.20 ABS# (0-10) H* 12/06/20 00:22 Troponin T Hi Sens 6Hr 79.14 ng/L (0-10) H 12/06/20 05:20 Troponin T Hi Sens 6Hr Delta 66.14 ng/L (0-12) H* 12/06/20 05:20 NT-Pro-B Natriuret Pep 278 pg/mL (0-125) H 12/06/20 05:20 Total Protein 5.5 g/dL (6.6-8.7) L 12/07/20 04:40 Total Protein 5.5 g/dL (6.6-8.7) L 12/07/20 04:40 Albumin 3.2 g/dL (3.5-5.2) L 12/07/20 04:40 Albumin 3.2 g/dL (3.5-5.2) L 12/07/20 04:40 Globulin 2.3 g/dL (1.3-4.6) 12/07/20 04:40 Globulin 2.3 g/dL (1.3-4.6) 12/07/20 04:40 Triglycerides 150 mg/dL (0-150) 12/06/20 05:20 Cholesterol 205 mg/dL (0-200) H 12/06/20 05:20 LDL Cholesterol, Calc 130 mg/dL (50-129) H 12/06/20 05:20 HDL Cholesterol 45 mg/dL (60-100) L 12/06/20 05:20 LDL/HDL Ratio 2.89 RATIO (0.00-3.22) 12/06/20 05:20 Cholesterol/HDL Ratio 4.56 mg/dL (0.0-4.40) H 12/06/20 05:20 Lipase 27 U/L (13-60) 12/05/20 22:28 TSH 0.02 uIU/mL (0.27-4.20) L 12/07/20 04:40 Free T4 1.45 ng/dL (0.82-1.77) 12/07/20 04:40 Blood Type O Positive 12/06/20 21:38 Rho(D) Type Positive 12/06/20 21:38 Antibody Screen Negative 12/06/20 21:38 Crossmatch See Detail 12/06/20 21:38 Cardiac catheterization: My impression: Cardiac catheterization on 12/06/2019 L eft main was found to have a 40% distal stenosis. The left anterior descending artery has multiple lesions ranging anywhere from 70 to 99%. The proximal lesion in the left hand descending artery may have a thrombus. Multiple high-grade lesions in the left and descending artery. Multiple high-grade lesions in the proximal and mid circumflex artery. Mild to moderate diffuse disease in the right coronary artery. LV ejection fraction of 45%. Wall motion normalities as mentioned above. LVEDP was 17 mmHg. No intracardiac masses were noted.. A&P Assessment and plan (1) Unstable angina: Patient is a clinical features are consistent with unstable angina. EKG shows features of anterolateral wall ischemia. This needs to be further evaluated. Patient may be treated with subcu Lovenox, beta-kj, nitrates and aspirin. Currently she is pain-free. Status: Acute (2) Non-ST elevation [place] (NSTEMI): Status post cardiac catheterization. Severe two-vessel coronary artery disease currently has stable anginal symptoms. I may start the patient on IV nitro. Discontinue the Nitropaste. Also may continue on the IV heparin. Status: Acute (3) Uncontrolled type 2 diabetes with neuropathy: Aggressive management of the diabetes as per the primary Status: Chronic (4) Dyslipidemia (high LDL; low HDL): I may start her on Crestor for the time being. If she has worsening of the fibromyalgia, need to consider PCSK9 inhibitor Status: Acute (5) Hypothyroid: Clinically euthyroid. May continue on the current medications. Status: Acute Qualifiers: Hypothyroidism type: acquired Qualified Code(s): E03.9 - Hypothyroidism, unspecified Additional A&P Information Appreciate Dr. Parra's consult. Patient is being considered for open heart surgery tomorrow. Attestations Medical Necessity Statement*: Patient requires continued hospital stay for close monitoring and further management Coding Level of Care Code Acute Wafer Cleaner for Chg Fwd Exam Expanded Problem Focused Diagnoses Unstable angina I20.0 Non-ST elevation MN (NSTEMI) I21.4 Uncontrolled type 2 diabetes with neuropathy E11.40; E11.65 Dyslipidemia (high LDL; low HDL) E78.5 Hypothyroid E03.9 Hypothyroidism type: acquired
--- NOTE | 2020-12-07 10:30 | PC.OT ---
Pre op CABG education provided to pt. Pt is anxious and does not fully attend to information discussed. Written handouts on information discussed left with pt at bedside. Will await OT orders post op.
[2020-12-07] MEDS: nitroglycerin drip 50 MG/250 ML PREMIX IV (10:34)
[2020-12-07] MEDS: heparin drip 25,000 UNIT/500 ML PREMIX 23 UNIT IV (10:35)
[2020-12-07] MEDS: heparin 5,000 unit/mL INJ 1 mL IV (10:35)
--- NOTE | 2020-12-07 11:07 | PC.NURSE ---
Dr araya here with order heparin ,and nitro started and hyrdrocodone started c/o headache
--- NOTE | 2020-12-07 14:46 | PC.NURSE ---
son here attempt to show vidieo at this time requested to wait until later up to [facility] only at this time had chest tightness for short time prior when up ambulating in room ...
[2020-12-07] MEDS: ondansetron 2 mg/ML SDV 2 mL 4 MG IVP ×2 (15:36→22:19)
--- NOTE | 2020-12-07 15:58 | PC.NURSE ---
remains somewhat anxious and restless denies chest pain but c/o nausea iv sited into left arm and zofran given has talked with blocker polishing remain for surgery am .
[2020-12-07] MEDS: sodium chloride 0.9% 1,000 ML 50 ML IV (17:16)
[2020-12-07] MEDS: chlorhexidine gluconate 4% Btl 118 mL 1 APPLIC TOPICAL (17:18)
[2020-12-07 17:21] LABS: Glucose Point of Care 200 mg/dL (70-110)
[2020-12-07 17:22] LABS: Glucose Point of Care 220 mg/dL (70-110)
[2020-12-07 17:22] LABS: Glucose Point of Care 245 mg/dL (70-110)
[2020-12-07 17:22] LABS: Glucose Point of Care 203 mg/dL (70-110)
[2020-12-07 17:25] LABS: Partial Thromboplastin Time 92.7 SECONDS (23.9-36.7)
[2020-12-07] MEDS: insulin regular-human 250 UNIT in sodium chloride 0.9% 250 ML IV (17:36)
[2020-12-07 19:04] LABS: Glucose Point of Care 220 mg/dL (70-110)
[2020-12-07] MEDS: atorvastatin 40 mg Tablet PO (20:15)
[2020-12-08] VITALS (69 sets, daily range): BP systolic 81–148; BP diastolic 36–88; PULSE 64–117; RESP 8–25; TEMP 36.8–38.1; O2SAT 90–100
--- NOTE | 2020-12-08 03:10 | PC.NURSE ---
Dr. Parra called jack discontinued heparin gtt at this time.
[2020-12-08 03:12] LABS: Partial Thromboplastin Time 78.7 SECONDS (23.9-36.7)
[2020-12-08 03:52] LABS: Basophils % 0.5 %; Eosinophils # 0.3 10^3/uL (0.0-0.8); Eosinophils % 3.6 %; Hematocrit 41.7 % (37.0-47.0); Hemoglobin 13.1 g/dL (11.5-15.3); Lymphocytes # 3.4 10^3/uL (0.8-4.8); Mean Corpuscular HGB Conc 31.4 g/dL (30.0-36.0); Mean Corpuscular Hemoglobin 29.4 pg (28.0-34.0); Mean Corpuscular Volume 93.7 fL (81-99); Mean Platelet Volume 9.6 fL (7.4-10.4); Monocytes # 0.7 10^3/uL (0.2-0.9); Monocytes % 8.1 %; Neutrophils # 3.85 10^3/uL (1.8-7.7); Neutrophils % 46.4 %; Nucleated Red Blood Cells % 0 %; Platelet Count 257 10^3/cmm (130-400); Red Blood Count 4.45 10^6/uL (4.1-5.3); Red Cell Distribution Width 11.7 % (12.1-15.1); White Blood Count 8.3 10^3/uL (4.0-10.0)
[2020-12-08 04:32] LABS: Alanine Aminotransferase 10 U/L (0-33); Albumin Level 3.2 g/dL (3.5-5.2); Alkaline Phosphatase 90 IU/L (35-105); Anion Gap 12.4 (5-19); Aspartate Amino Transferase 11 U/L (0-32); Blood Urea Nitrogen 13 mg/dL (8-23); Calcium 9.4 mg/dL (8.5-10.5); Carbon Dioxide 26 mmol/L (22-29); Chloride 105 mmol/L (98-107); Creatinine Clr Calc Pharmacy 70.0508; Globulin 2.4 g/dL (1.3-4.6); Glomerular Filtration Rate 99.1 mL/min (90-130); Glucose 101 mg/dL (65-115); Magnesium 1.8 mg/dL (1.7-2.3); Osmolality Calculated 290 mOsm/kg (285-295); Phosphorus 4.5 mg/dL (2.5-4.5); Potassium 3.4 mmol/L (3.5-5.1); Sodium 140 mmol/L (136-145); Total Bilirubin 0.2 mg/dL (0.15-1.2); Total Protein 5.6 g/dL (6.6-8.7)
--- NOTE | 2020-12-08 05:35 | PM.PN ---
Subjective Subjective: Interval history: Patient sleeping on rounds this morning. No further chest discomfort since late yesterday evening. Heparin, which was scheduled to be stopped at 6 PM was continued. I called at 3 AM this morning to have it discontinued. Vitals/I&O/Wt Last Vital Signs Temp 98.1 F 12/07/20 20:00 Pulse 72 12/08/20 02:00 Resp 12 12/08/20 02:00 BP 124/66 12/08/20 02:00 Pulse Ox 94 12/08/20 02:00 12/07/20 12/07/20 12/08/20 14:59 22:59 06:59 Intake Total 500 / 500 1238.95 / 1738.95 395.117 / 2134.067 Output Total 400 / 400 1475 / 1875 Balance 100 / 100 -236.05 / -136.05 395.117 / 259.067 Data : 12/08/20 03:30 12/08/20 03:30 A&P Assessment and plan (1) Non-ST elevation VA (NSTEMI): Will need to ascertain coagulation profile this morning due to the delay in heparin discontinuation. Surgery tentatively scheduled for today and coagulation profile acceptable. Ms. Teixeira has no further questions. Her family is aware of her planned surgery. It is my understanding her son is scheduled to be here. Status: Acute Attestations Medical Necessity Statement*: Non-STEMI with severe two-vessel disease with unstable angina Time Spent in Patient Care: less than 15 minutes Coding Level of Care Code Acute Digital Press Operator for Dev Flood Diagnoses Non-ST elevation VA (NSTEMI) I21.4
[2020-12-08] MEDS: ondansetron 2 mg/ML SDV 2 mL 4 MG IVP (05:51)
[2020-12-08] MEDS: mupirocin oint 22 gm 1 APPLIC NASAL (05:57)
[2020-12-08 06:00] LABS: Glucose Point of Care 105 mg/dL (70-110)
[2020-12-08 06:00] LABS: Glucose Point of Care 104 mg/dL (70-110)
[2020-12-08 06:00] LABS: Glucose Point of Care 86 mg/dL (70-110)
[2020-12-08 06:00] LABS: Glucose Point of Care 93 mg/dL (70-110)
[2020-12-08 06:00] LABS: Glucose Point of Care 93 mg/dL (70-110)
[2020-12-08 06:00] LABS: Glucose Point of Care 75 mg/dL (70-110)
[2020-12-08 06:08] LABS: Glucose Point of Care 90 mg/dL (70-110)
[2020-12-08 06:54] LABS: Add Urine Microscopic? YES; Bilirubin Urine Neg (Negative); Blood Urine 2+ (Negative); Glucose Urine UA 1+ (Normal); Ketones Urine Negative (Negative); Leukocyte Esterase Urine 2+ (Negative); Nitrate Urine Negative (Negative); Protein Urine Neg (Negative); RBC Urine 0-4 /hpf (0-2); Urine Appearance Hazy (CLEAR); Urine Color Yellow (Yellow); Urobilinogen Urine Norm (Negative); WBC Urine 55-80 /hpf (0-5); pH Urine 5 (5-7)
[2020-12-08 06:55] LABS: Add Urine Culture? No; Bacteria Urine 1+ /hpf; Squamous Epithelial Cell Urine 25-40 /hpf (0-5)
--- NOTE | 2020-12-08 07:05 | PC.NURSE ---
pt to OR with OR staff
--- NOTE | 2020-12-08 08:16 | XRR_ITS ---
PROCEDURE INFORMATION: Exam: XR Chest, 1 View Exam date and time: 12/08/2020 3:43 PM Age: 70 years old Clinical indication: Device placement; Chest tube; Prior surgery; Surgery date: Post-operative (0-2 days); Additional info: Status post cabg chest tube placement TECHNIQUE: Imaging protocol: XR of the chest Views: 1 view. Total images: 1 COMPARISON: CR XR chest 1V portable [id number] 12/05/2020 10:01 PM FINDINGS: Tubes, catheters and devices: Left thoracotomy tube tip left lung apex. Endotracheal tube tip at the level of the ostium of the right mainstem bronchus and recommend retracting approximately 2-3 cm for optimal positioning. Nasogastric tube tip below the diaphragm. Tibbie-Kaleb catheter. Right IJ catheter tip proximal SVC level. Lungs: Bilateral diffuse increase in interstitial markings which could reflect mild interstitial edema. No visible consolidated alveolar airspace disease. Pleural space: No visible pleural effusion. No visible pneumothorax. Heart/Mediastinum: Cardiac size upper limits of normal. Bones/joints: Unremarkable. Soft tissues: Status post sternotomy chest and CABG. XR/XR chest 1V portable [id number] IMPRESSION: 1. Left thoracotomy tube tip left lung apex. 2. Endotracheal tube tip at the level of the ostium of the right mainstem bronchus and recommend retracting approximately 2-3 cm for optimal positioning. 3. Bilateral diffuse increase in interstitial markings which could reflect mild interstitial edema.
[2020-12-08] MEDS: cefUROXime 1,500 MG in sodium chloride 0.9% (plus) 50 ML 100 MG IV ×2 (09:00→14:27)
--- NOTE | 2020-12-08 09:24 | PC.CHAP ---
Pastoral Care Encounter/Spiritual Assessment Type of Contact [] Declined institutional cook visit [] Patient/Family/Request visit [] Outpatient visit [] Follow-up visit [] Physician referral [] Code/Alert [] Routine visit [] Staff referral [] Actively dying [] Patient sleeping [] Family support [] [x] Out of room [] Palliative care [] [] Receiving care in room [] Pre-surgical visit [] Trauma [] Long length of stay [] ICU visit [] Other: Relational/Emotional Strength [] Patient feels connected with others/family/visitors/staff [] Distress [] Loneliness/isolation [] Abandonment Spirituality of Patient [] Person of Vilma [] Attends Pentecostal of their Vilma [] Believes in Prayer [] Reads Bible or Caodaism materials [] There are Spiritual issues to be addressed Thoracic Surgeon Interventions [x] Prayer [] Active listening [] Non-anxious presence [] Spiritual/emotional support [] Crisis/trauma care [] Spiritual counseling [] Bereavement support [] Provided bereavement packet [] Provided Bible/devotional materials [] Provided toy/stuffed animal, coloring book to patient or family member [] Provided Communion [] Anointing/[place] [] Salvation [x] Completed spiritual assessment [] Other: Impact on Illness or Injury [] Angry [] Fearful [] Anxious [] Often cries [] Exhaustion [] Unable to work [] Unable to attend hinduism [] Unable to walk/stand [] Unable to read [] Unable to drive [] Unable to eat/drink [] Unable to sleep [] Unable to be with family [] Patient intubated [] Other: Summary Time spent with patient
[2020-12-08] MEDS: heparin, porcine 1,000 unit/mL INJ 10 mL 1750 UNIT IRRIGATION (09:26)
[2020-12-08] MEDS: vancomycin 1,000 MG SDV 3000 MG IRRIGATION (09:26)
--- NOTE | 2020-12-08 10:08 | SUR.OPER ---
NOTIFIED ALBERTO HYDE OF START OF SURGICAL PROCEDURE PER PHONE NUMBER PROVIDED.
[2020-12-08] MEDS: sodium bicarbonate 1 mEq/mL SDV 50mL 50 MEQ XX (10:48)
--- NOTE | 2020-12-08 11:10 | PM.PN ---
Subjective Subjective: Interval history: S/P Coronary artery bypass grafting x3 utilizing in situ left internal mammary artery to the left anterior descending artery, reverse saphenous vein graft aorta to the diagonal artery, reverse saphenous vein graft aorta to the obtuse marginal branch of circumflex artery. Vitals and labs have been reviewed. Medications: Reviewed: Yes Medication Review Details: Current Medications Acetaminophen (Acetaminophen 325 Mg Tablet) 650 mg PO Q6H PRN PRN Reason: Mild/Mod Pain Or Temp >/= 101 Last Admin: 12/06/20 05:30 Dose: 650 mg Documented by: Acetaminophen (Acetaminophen 325 Mg Tablet) 650 mg PO Q6H PRN PRN Reason: MILD PAIN Hydrocodone Bitart/Acetaminophen (Hydrocodone-Acetaminophen 10-325 Mg Tablet) 1 tab PO Q6H PRN PRN Reason: Pain Last Admin: 12/07/20 23:20 Dose: 1 tab Documented by: Alprazolam (Alprazolam 0.25 Mg Tablet) 0.25 mg PO TID PRN PRN Reason: ANXIETY Last Admin: 12/07/20 22:19 Dose: 0.25 mg Documented by: Aspirin (Aspirin 325 Mg Ec Tablet) 325 mg PO DAILY [facility] Last Admin: 12/07/20 08:51 Dose: 325 mg Documented by: Aspirin (Aspirin 81 Mg Chew Tablet) 81 mg PO DAILY [facility] Last Admin: 12/09/20 08:33 Dose: 81 mg Documented by: Atorvastatin Calcium (Atorvastatin 40 Mg Tablet) 40 mg PO BEDTIME [facility] Last Admin: 12/07/20 20:15 Dose: 40 mg Documented by: Atorvastatin Calcium (Atorvastatin 40 Mg Tablet) 20 mg PO BEDTIME [facility] Atropine Sulfate (Atropine 1 Mg/Ml Sdv 1 Ml) 0.5 mg IVP PRN PRN PRN Reason: Symptomatic bradycardia Baclofen (Baclofen 10 Mg Tablet) 10 mg PO BID PRN PRN Reason: Muscle Spasm Last Admin: 12/07/20 08:52 Dose: 10 mg Documented by: Chlorhexidine Gluconate (Chlorhexidine Gluconate 0.12% Btl 473 Ml) 15 ml MUCOUS MEM BID [facility] Last Admin: 12/07/20 17:17 Dose: 1 applic Documented by: Chlorhexidine Gluconate (Chlorhexidine Gluconate 4% Btl 118 Ml) 1 applic TOPICAL DAILY [facility] Last Admin: 12/07/20 17:18 Dose: 1 applic Documented by: Chlorhexidine Gluconate (Chlorhexidine Gluconate 0.12% Btl 473 Ml) 15 ml MUCOUS MEM BID [facility] Last Admin: 12/09/20 08:34 Dose: 1 applic Documented by: Dextrose (Dextrose 50% Syringe 50 Ml) 50 ml IVP PRN PRN; Protocol PRN Reason: hypoglycemia protocol Dextrose (Dextrose 50% Syringe 50 Ml) 25 ml IVP ONCE PRN; Protocol PRN Reason: hypoglycemia protocol Epinephrine (Racepinephrine 0.5 Ml Neb) 0.5 ml INHALATION Q6H.RESPIRATORY PRN PRN Reason: Stridor Fentanyl (Fentanyl 50 Mcg/Ml Inj 2ml) 50 mcg IVP Q1H PRN PRN Reason: SEVERE PAIN Last Admin: 12/09/20 07:38 Dose: 50 mcg Documented by: Glucagon (Glucagon 1 Mg/Ml Inj 1 Ml) 1 mg IM ONCE PRN; Protocol PRN Reason: Adult Acute Hypoglycemia Prot. Glucagon (Glucagon 1 Mg/Ml Inj 1 Ml) 1 mg IM ONCE PRN; Protocol PRN Reason: Adult Acute Hypoglycemia Prot Heparin Sodium (Beef Lung) (Heparin 5,000 Unit/Ml Inj 1 Ml) 0 unit IV PRN PRN; Protocol PRN Reason: Heparin weight-base protocol Last Admin: 12/07/20 10:35 Dose: 42,000 unit Documented by: Hydralazine HCl (Hydralazine 20 Mg/Ml Inj 1 Ml) 5 mg IVP ONCE PRN PRN Reason: Systolic BP > 140 mmHg Sodium Chloride (Sodium Chloride 0.9%) 1,000 mls @ 75 mls/hr IV .[id number] [facility] Last Admin: 12/07/20 17:17 Dose: 75 mls/hr Documented by: Nitroglycerin/Dextrose (Nitroglycerin Drip) 50 mg in 250 mls @ 0 mls/hr IV .Q0M [facility]; Protocol Last Titration: 12/08/20 17:19 Dose: Infused Documented by: Insulin Human Regular 250 unit (/ Sodium Chloride) 252.5 mls @ 0 mls/hr IV .Q0M [facility]; Protocol Last Titration: 12/08/20 17:19 Dose: Infused Documented by: Propofol (Diprivan) 1,000 mg in 100 mls @ 0 mls/hr IV .Q0M [facility]; Protocol Last Titration: 12/09/20 09:22 Dose: 30 mcg/kg/min, 15.3 mls/hr Documented by: Nitroglycerin/Dextrose (Nitroglycerin Drip) 50 mg in 250 mls @ 0 mls/hr IV .Q0M [facility]; Protocol Albumin Human (Albumin) 12.5 gm in 250 mls @ 600 mls/hr IV PRN PRN PRN Reason: For CVP < 4 or SBP< 90 Last Infusion: 12/08/20 22:30 Dose: Infused Documented by: Insulin Human Regular 250 unit (/ Sodium Chloride) 252.5 mls @ 0 mls/hr IV .Q0M [facility]; Protocol Sodium Nitroprusside 50 mg/ (Dextrose) 252 mls @ 0 mls/hr IV .Q0M [facility]; Protocol Labetalol HCl 300 mg/ Sodium (Chloride) 300 mls @ 30 mls/hr IV .Q10H PRN; Protocol PRN Reason: Systolic BP > 140 mmHg Dopamine HCl/Dextrose (Intropin Drip) 400 mg in 250 mls @ 15.93 mls/hr IV CONT PRN; Protocol PRN Reason: Hypotension Amiodarone HCl 900 mg/Dextrose/ IV Miscellaneous Supplies 518 mls @ 0 mls/hr IV .Q0M [facility]; Protocol Stop: 12/09/20 15:54 Cefuroxime Sodium 1,500 mg/ (Sodium Chloride) 100 mls @ 200 mls/hr IV Q12H [facility]; Protocol Stop: 12/10/20 14:29 Last Infusion: 12/09/20 02:44 Dose: Infused Documented by: Dobutamine HCl/Dextrose (Dobutamine Drip) 500 mg in 250 mls @ 0 mls/hr IV .Q0M PRN; Protocol PRN Reason: Cardiac Output Norepinephrine Bitartrate 4 mg (/ Dextrose) 254 mls @ 10.583 mls/hr IV .Q24H PRN; Protocol PRN Reason: HYPOTENSION Phenylephrine HCl 25 mg/ (Sodium Chloride) 252.5 mls @ 0 mls/hr IV .Q0M PRN; Protocol PRN Reason: HYPOTENSION Last Titration: 12/09/20 01:05 Dose: 0 mcg/min, 0 mls/hr Documented by: Dextrose (D5w) 500 mls @ 100 mls/hr IV ONCE PRN; Protocol PRN Reason: Adult Acute Hypoglycemia Prot Sodium Chloride (Sodium Chloride 0.9%) 1,000 mls @ 75 mls/hr IV .[id number] [facility] Last Admin: 12/09/20 05:28 Dose: 75 mls/hr Documented by: Labetalol HCl (Labetalol 5 Mg/Ml Sdv 20ml) 10 mg IVP Q5M PRN PRN Reason: Systolic BP >140 mmHG Lanolin (Lanolin Oint 7 Gm) 1 applic TOPICAL PRN PRN PRN Reason: DRYNESS Levothyroxine Sodium (Levothyroxine 125 Mcg Tablet) 125 mcg PO QAM [facility] Last Admin: 12/07/20 20:16 Dose: Not Given Documented by: Magnesium Hydroxide (Magnesium Hydroxide 30 Ml Udc) 30 ml PO DAILY PRN PRN Reason: CONSTIPATION Metoprolol Tartrate (Metoprolol Tartrate 25 Mg Tablet) 25 mg PO BID@0900,2100 [facility] Last Admin: 12/07/20 20:15 Dose: 25 mg Documented by: Midazolam HCl (Midazolam 1 Mg/Ml Inj 2 Ml) 1 mg IVP Q1H PRN PRN Reason: Sedation for Montoya score < 4. Last Admin: 12/09/20 02:03 Dose: 1 mg Documented by: Morphine Sulfate (Morphine 4 Mg/Ml Sdv 1 Ml) 2 mg IVP Q1H PRN PRN Reason: BREAKTHROUGH PAIN Last Admin: 12/08/20 21:58 Dose: 2 mg Documented by: Mupirocin (Mupirocin Oint 22 Gm) 1 applic NASAL BID [facility] Last Admin: 12/08/20 05:57 Dose: 1 applic Documented by: Naloxone HCl (Naloxone 0.4 Mg/Ml Sdv) 0.1 mg IVP Q2M PRN PRN Reason: RESPIRATORY RATE < 8/MIN Naloxone HCl (Naloxone 0.4 Mg/Ml Sdv) 0.1 mg IVP Q2M PRN PRN Reason: OPIATERV Nitroglycerin (Nitroglycerin 0.4 Mg Sublingual Tablet) 0.4 mg SUBLINGUAL Q5M PRN PRN Reason: CHEST PAIN Last Admin: 12/05/20 22:41 Dose: 1 tab Documented by: Ondansetron HCl (Ondansetron 2 Mg/Ml Sdv 2 Ml) 4 mg IVP Q8H PRN PRN Reason: vomiting, or N/V if npo Last Admin: 12/08/20 05:51 Dose: 4 mg Documented by: Ondansetron HCl (Ondansetron 2 Mg/Ml Sdv 2 Ml) 4 mg IVP Q6H PRN PRN Reason: NAUSEA Oxycodone/Acetaminophen (Oxycodone-Apap 5-325 Mg Tablet) 1 - 2 tab PO Q6H PRN PRN Reason: MILD TO MODERATE PAIN Last Admin: 12/09/20 02:44 Dose: 2 tab Documented by: Pantoprazole Sodium (Pantoprazole Dr 40 Mg Tablet) 40 mg PO DAILY [facility] Last Admin: 12/07/20 08:51 Dose: 40 mg Documented by: Zolpidem Tartrate (Zolpidem 10 Mg Tablet) 10 mg PO BEDTIME PRN PRN Reason: Sleep Last Admin: 12/07/20 20:15 Dose: 10 mg Documented by: Vitals/I&O/Wt Last Vital Signs Temp 98.2 F 12/08/20 04:00 Pulse 72 12/08/20 06:00 Resp 25 H 12/08/20 05:00 BP 129/81 12/08/20 05:00 Pulse Ox 94 12/08/20 05:00 12/07/20 12/08/20 12/08/20 22:59 06:59 14:59 Intake Total 1238.95 / 1738.95 401.117 / 2140.067 90 / 90 Output Total 1475 / 1875 225 / 2100 Balance -236.05 / -136.05 176.117 / 40.067 90 / 90 Weight last 48 hrs Weight 84.958 kg Physical Exam Const: COMMON NORMALS: patient oriented x3 HENMT: COMMON NORMALS: normocephalic and atraumatic HEAD & SCALP: normocephalic and atraumatic Chest: COMMONS NORMALS: normal inspection of the chest CHEST: Yes Symmetrical chest wall rise Resp: COMMON NORMALS: normal respiratory effort and clear to auscultation bilaterally EFFORT & INSPECTION: Yes symmetric chest movement AUSCULTATION: clear to auscultation bilaterally Cardio: COMMON NORMALS: regular rate, regular rhythm, S1 normal heart sound present, S2 normal heart sound present, No gallops present (Cardio), No murmurs present (Cardio), No rub (Cardio) and Peripheral pulses 2+ throughout RATE: regular rate RHYTHM: regular rhythm HEART SOUNDS: S1 normal heart sound present and S2 normal heart sound present PERIPHERAL PULSES: Peripheral pulses 2+ throughout GI: COMMON NORMALS: Normal to inspection, nondistended, normoactive bowel sounds present, Soft to palpation, non-tender, No hepatosplenomegaly present and no masses AUSCULTATION: Yes normoactive bowel sounds PALPATION: Yes Soft to palpation and Yes No hepatosplenomegaly present RECTAL EXAM: deferred Extremity: COMMON NORMALS: no clubbing, cyanosis or edema and no pedal edema Neuro: COMMON NORMALS: patient oriented x3 Urinary Catheter Management^: Garcia: Cath Placed During This Visit: yes Urinary Catheter Date of Insertion: 12/08/20 Urinary Catheter Time of Insertion: 08:18 Data : 12/09/20 12:10 12/09/20 12:10 A&P Assessment and plan (1) Non-ST elevation LA (NSTEMI): -Multivessel CAD -Will require cardiothoracic surgery evaluation, and bypass, n.p.o. for night, plans for surgery tomorrow morning -Continue aspirin, statin, beta-kj -Started on heparin drip this morning -Started on insulin drip later on this afternoon -Continue to monitor for chest pain, telemetry monitoring -Continue to monitor in ICU -Full code -Heparin for DVT prophylaxis, SCDs Status: Acute (2) Uncontrolled type 2 diabetes with neuropathy: Usually on insulin and glipizide, seeing Dr Solorio Hemoglobin A1c 10.7 Hold Lantus Insulin sliding scale Status: Chronic (3) Hypothyroid: On levothyroxine, sees Dr Solorio Status: Acute Qualifiers: Hypothyroidism type: acquired Qualified Code(s): E03.9 - Hypothyroidism, unspecified (4) Hyperlipidemia: Not currently on treatment Status: Inactive (5) Fibromyalgia: On hydrocodone and prn baclofen Status: Acute Additional A&P Information GI prophylaxis Continue home pain management as needed medicines Supportive care otherwise Plans discussed with patient and she was given an opportunity to ask questions Full code Attestations Medical Necessity Statement*: Patient needs to be in hospital for the management of multivessel CAD S/P CABG . Coding Level of Care Code Acute Information Security Engineer for Chg Fwd Diagnoses Non-ST elevation LA (NSTEMI) I21.4 Uncontrolled type 2 diabetes with neuropathy E11.40; E11.65 Hypothyroid E03.9 Hypothyroidism type: acquired Hyperlipidemia E78.5 Fibromyalgia M79.7
--- NOTE | 2020-12-08 11:15 | SUR.OPER ---
NOTIFIED SON ROEL OF PROGRESS OF PROCEDURE
[2020-12-08 11:57] LABS: Glucose Point of Care 94 mg/dL (70-110)
[2020-12-08 11:57] LABS: Glucose Point of Care 152 mg/dL (70-110)
[2020-12-08 11:57] LABS: Glucose Point of Care 115 mg/dL (70-110)
--- NOTE | 2020-12-08 12:40 | SUR.OPER ---
LATE ENTRY VOR 1145. ON BYPASS AT 1140. ICU AND FAMILY NOTIFIED.
--- NOTE | 2020-12-08 14:00 | SUR.OPER ---
UPDATED LA OF PATIENT OFF BYPASS AND PROGRESS OF SURGERY
--- NOTE | 2020-12-08 15:51 | P.OP_ITS ---
Operative Report Date of procedure: December 08, 2020 Pre-op Diagnosis: Non-STEMI/unstable angina, severe coronary artery disease Post-op diagnosis: same Procedure Done: 1. Coronary artery bypass grafting x3 utilizing in situ left internal mammary artery to the left anterior descending artery, reverse saphenous vein graft aorta to the diagonal artery, reverse saphenous vein graft aorta to the obtuse marginal branch of circumflex artery. #2. Endoscopic greater saphenous vein harvesting from the right thigh Pathology: none sent Surgeon: David Parra Anesthesia: General Condition: critical Disposition: ICU Brief History: Patient is a 70-year-old female who was admitted with a non-STEMI a couple of days ago. Left heart catheterization by Dr. Denis revealed distal left main disease and severe proximal disease of the LAD involving proximal and mid vessel as well as disease of the circumflex artery at the ostium. There was noncritical disease of the RCA. She had depressed ejection fraction with hypokinesia of the anterior and anterior septal and apical bryant. Because of her depressed EF, diabetes mellitus, and non-STEMI, she was referred to consider surgery vascularization. Appropriate preoperative evaluation was completed. Counseling was also performed. Patient and family are agreeable to proceed with plans for surgery. Procedure: Details and risks of the surgery were carefully and frankly explained to the patient and the family. Particular risks of this surgery carefully reviewed with them included the possibility of , stroke, heart attack, major bleeding, infection, pneumonia, pain, organ failure, failure to benefit, early closure of the bypass grafts, prolonged hospital stay and subsequent need for further procedures. Increased risks for complications secondary to recent [place], small stature, uncontrolled diabetes, and diffuse disease were carefully reviewed. Patient and family understand these increased risks. All questions were answered and appropriate consents were reviewed and signed. Preoperative education for the patient and the family included both written and video materials. The patient and the family wished to proceed with plans for attempted surgical revascularization for severe coronary artery bypass. PROCEDURE: Preoperative evaluation was obtained from our Anesthesia colleagues and adequate IVs were confirmed. The patient was then taken to the Operating Room Suite where general anesthesia was induced. Appropriate invasive monitoring lines were placed, including large bore peripheral IVs, central line, Bedford-Kaleb catheter, Garcia catheter and associated monitoring leads. After careful positioning on the Operating Room table, the patient was subsequently sterilely prepped and draped. Saphenous vein was harvested by endoscopic technique from the right thigh. Branches were secured with ligature and clips and the vein was extracted from the tunnel without tension. It was then flushed with a Heparin and albumin solution and prepared for grafting. Vein harvest sites were irrigated, platelet poor plasma infused into the tunnel and port sites closed with 3-0 and 4-0 Vicryl Plus suture. Simultaneously with vein harvesting, a median sternotomy was created utilizing a #10 scalpel blade with hemostasis controlled with cautery. After reaching the sternal table, the sternum was divided with a reciprocating saw. Bleeding was controlled with cautery and judicious use of bone wax. Following this, the left chest wall was elevated with a Rultract retractor. The left internal mammary artery was dissected free with branches being secured with clips and cautery. The distal end was left intact. After harvesting of the mammary artery, a left pleural chest tube was then placed. The left chest wall was then lowered and moistened antibiotic-soaked laparotomy pads were placed in the wound, followed by an Ankeney retractor. The sternum was then and the pericardium opened and secured with stay sutures. After inspection, 2-0 pledgeted Ethibond sutures were placed at cannulation sites, at which time the patient was fully heparinized. Following this, the left internal mammary artery was taken down from its distal attachment, flushed with Papaverine solution, prepared for grafting and brisk flow confirmed. A soft bulldog was applied distally. Next, the heart was cannulated with a 22-Arabic aortic cannula, two-stage venous cannula and aortic root vent. The patient was subsequently placed on cardiopulmonary bypass and cooled systemically to 34 degrees. Aortic cross-clamp was then carefully placed and 4 degree Celsius cold blood cardioplegia was administered through the aortic root in antegrade fashion. Prompt diastolic arrest was obtained. Left ventricular decompression was confirmed. The heart was cooled systemically with iced saline with an insulation pad in place to protect the phrenic nerve. Throughout the cross-clamp period, at 20-30 minute intervals, antegrade blood cardioplegia was administered to maintain asystole. We then inspected the cardiac surface and coronary anatomy. Initially, the obtuse marginal branch of circumflex artery was dissected free just distal to the AV groove. Vessel was 1.75 mm in size. Vein was anastomosed end to side to the OMB with running 7-0 Prolene suture and approximately 2 a 4 mm aortotomy with 5-0 Prolene suture. Next, the diagonal artery at 1.5 mm in size was opened up and a second portion of vein was anastomosed end to side to this arteriotomy with 7-0 Prolene suture distally and proximal medial 4 mm aortotomy with 5-0 Prolene suture. With the rewarming phase of bypass continuing, the left internal mammary artery was brought through a left anterior pericardial window into the field. The LAD was opened up in its mid one-third and was approximately 1.5 mm in size. The VALLES was then anastomosed to the LAD with a running 7-0 Prolene suture. It should be noted that all distal coronary anastomoses were performed over the appropriate size coronary shunt which was removed prior to securing the distal suture line. Following this, aortic cross-clamp was released and de-airing maneuvers were performed through the aortic root vent, as well as being confirmed by transesophageal echocardiography. Dobutamine at 3 mcg per kilogram per minute was administered with good chronotropic and inotropic affect. The heart returned to spontaneous sinus rhythm and did not require cardioversion or pacing. After adequate recovery from the cross-clamp period and confirmation of cardiac stability, the patient was weaned from bypass without difficulty. Venous cannula was removed. Heparin was reversed with Protamine and confirmed by measurement of activated clotting time. The heart was then decannulated and cannulation sites were oversewn as required. Pacing wires were placed and broug ht through the skin and secured. Radiopaque markers were placed on the vein grafts at the level of aorta. Two mediastinal drains were placed and connected to Pleur-evac suction. The wound was carefully irrigated and hemostasis was confirmed. Ankeney retractor was removed and sponge and needle count was correct. The sternum was then reapproximated very carefully with interrupted #7 stainless steel wire with Surgicel strips used beneath the sternal table. Fascia was closed with #1 Vicryl suture with the next layers being closed with 2-0 and 3-0 suture. The skin was reapproximated carefully in a subcuticular manner. Sterile dressings were applied, followed by a vacuum-assisted dressing. The patient was carefully removed from the operating room table and transferred to the Intensive Care Unit. Her son was then counseled by phone as to the details of the procedure and had been kept appraised throughout the conduct of the procedure. Dr. Denis was notified of our operative findings and procedure details.
--- NOTE | 2020-12-08 15:55 | ECG_ITS ---
[facility] Test Date: 2020-12-08 Pat Name: Yasmani Teixeira Department: Room: ICU10 Gender: Female Patented Hogshead Assembler: : 1950 Requested By: David Parra Order Number: [id number] Ryder MD: Rey Denis M.D. Measurements Intervals [place] Rate: 82 P: 40 VT: 159 QRS: 8 QRSD: 78 T: 141 QT: 489 QTc: 573 Interpretive Statements SINUS RHYTHM ST DEVIATION AND MODERATE T-WAVE ABNORMALITY, CONSIDER ANTEROLATERAL ISCHEMIA [-0.1+ mV T WAVE IN V3-V6] Compared to ECG 12/06/2020 05:12:45 No significant changes Electronically Signed On 12-08-2020 18:55:36 APARTMENT MAINTENANCE SUPERVISOR by Rey Denis M.D. [id number]
--- NOTE | 2020-12-08 16:06 | PC.NURSE ---
pt here from OR with OR crew [place] noted to the left wrist. swan oumou catheter and central line noted to the right IJ. higgins to gravity. et tube 22 cm at the lip og tube clamped. wound vac to sternum.
[2020-12-08 16:26] LABS: ABG PCO2 35.2 mmHg (35-45); ABG PH Result 7.37 (7.35-7.45); Base Excess ABG -4.4 mmol/L (-2.0-2.0); Blood Gas Allen Test Pos; Blood Gas Operator Identificat CAK; Blood Gas Sample Site ARTLINE; Blood Gas Sample Type Arterial; HCO3 ABG 20.3 mmol/L (22-26); Oxygen Device VENT; PO2 ABG 99.8 mmHg (80.0-100.0)
[2020-12-08 17:01] LABS: Basophils % 0.3 %; Eosinophils % 0.2 %; Hematocrit 30.5 % (37.0-47.0); Hemoglobin 9.8 g/dL (11.5-15.3); Lymphocytes # 1.8 10^3/uL (0.8-4.8); Lymphocytes % 12.2 %; Mean Corpuscular HGB Conc 32.1 g/dL (30.0-36.0); Mean Corpuscular Volume 93.3 fL (81-99); Mean Platelet Volume 9.9 fL (7.4-10.4); Monocytes # 1.1 10^3/uL (0.2-0.9); Monocytes % 7.4 %; Neutrophils # 11.77 10^3/uL (1.8-7.7); Neutrophils % 79.2 %; Nucleated Red Blood Cells % 0 %; Platelet Count 157 10^3/cmm (130-400); Red Blood Count 3.27 10^6/uL (4.1-5.3); Red Cell Distribution Width 11.9 % (12.1-15.1); White Blood Count 14.9 10^3/uL (4.0-10.0)
[2020-12-08] MEDS: albumin 12.5 GM/250 ML VIAL IV ×3 (17:19→19:41)
[2020-12-08] MEDS: sodium chloride 0.9% 1,000 ML 75 ML IV (17:19)
[2020-12-08] MEDS: propofol 1,000 MG/100 ML INJ 7.6 MG IV (17:19)
[2020-12-08 17:28] LABS: INR 1.37 (0.8-1.2); Partial Thromboplastin Time 28.8 SECONDS (23.9-36.7)
[2020-12-08 17:38] LABS: Anion Gap 11.7 (5-19); Blood Urea Nitrogen 12 mg/dL (8-23); Calcium 7.4 mg/dL (8.5-10.5); Carbon Dioxide 21 mmol/L (22-29); Chloride 116 mmol/L (98-107); Glomerular Filtration Rate 158.3 mL/min (90-130); Glucose 154 mg/dL (65-115); Magnesium 2.2 mg/dL (1.7-2.3); Osmolality Calculated 301 mOsm/kg (285-295); Potassium 4.7 mmol/L (3.5-5.1); Sodium 144 mmol/L (136-145)
[2020-12-08] MEDS: fentaNYL 50 mcg/mL INJ 2mL IVP ×2 (17:40→23:23)
[2020-12-08 17:41] LABS: Creatinine Clr Calc Pharmacy 71.4385
[2020-12-08] MEDS: oxyCODONE-APAP 5-325 mg Tablet PO (18:13)
[2020-12-08] MEDS: aspirin 81 mg Chew Tablet OG-TUBE (18:14)
[2020-12-08] MEDS: chlorhexidine gluconate 0.12% Btl 473 mL 15 ML MUCOUS MEM (18:18)
[2020-12-08 18:21] LABS: Glucose Point of Care 50 mg/dL (70-110)
[2020-12-08 18:21] LABS: Glucose Point of Care 120 mg/dL (70-110)
[2020-12-08 18:21] LABS: Glucose Point of Care 127 mg/dL (70-110)
[2020-12-08] MEDS: morphine 4 mg/mL SDV 1 mL 2 MG IVP ×2 (18:34→21:58)
[2020-12-08] MEDS: phenylephrine inj 25 MG in sodium chloride 0.9% 250 ML 12.1 MG IV (19:00)
[2020-12-08 19:45] LABS: Basophils % 0.2 %; Eosinophils % 0.1 %; Hematocrit 29.9 % (37.0-47.0); Hemoglobin 9.6 g/dL (11.5-15.3); Lymphocytes # 1.1 10^3/uL (0.8-4.8); Lymphocytes % 7.3 %; Mean Corpuscular HGB Conc 32.1 g/dL (30.0-36.0); Mean Corpuscular Hemoglobin 29.5 pg (28.0-34.0); Monocytes # 1.2 10^3/uL (0.2-0.9); Monocytes % 8.3 %; Neutrophils % 83.3 %; Nucleated Red Blood Cells % 0 %; Platelet Count 187 10^3/cmm (130-400); Red Blood Count 3.25 10^6/uL (4.1-5.3); Red Cell Distribution Width 12.1 % (12.1-15.1); White Blood Count 14.8 10^3/uL (4.0-10.0)
[2020-12-08 20:18] LABS: Anion Gap 10.5 (5-19); Blood Urea Nitrogen 12 mg/dL (8-23); Calcium 7.8 mg/dL (8.5-10.5); Carbon Dioxide 22 mmol/L (22-29); Chloride 113 mmol/L (98-107); Creatinine Clr Calc Pharmacy 71.4385; Glomerular Filtration Rate 158.3 mL/min (90-130); Glucose 167 mg/dL (65-115); Magnesium 2.1 mg/dL (1.7-2.3); Osmolality Calculated 296 mOsm/kg (285-295); Potassium 4.5 mmol/L (3.5-5.1); Sodium 141 mmol/L (136-145)
--- NOTE | 2020-12-08 20:30 | PC.NURSE ---
Chest tube output Chest tube output has increased. Last hr mediastinal output 95ml, now 50ml on the half hr. Dr. Askew notified for increase in output. Labs were drawn at 1930. Reviewed assessment and hemodynamics with physician. Hemodynamics stable at this time. Orders received for Stat chest xray, transfuse 1 unit PRBC and transfuse 2 unit of FFP. Orders received to hold off on weaning and extubation this pm.
--- NOTE | 2020-12-08 20:42 | XRR_ITS ---
PROCEDURE INFORMATION: Exam: XR Chest, 1 View Exam date and time: 12/08/2020 8:57 PM Age: 70 years old Clinical indication: Shortness of breath; Prior surgery; Additional info: High chest tube output TECHNIQUE: Imaging protocol: XR of the chest Views: 1 view. Total images: 1 COMPARISON: CR XR chest 1V portable [id number] 12/08/2020 3:31 PM FINDINGS: Tubes, catheters and devices: Endotracheal tube tip now in satisfactory position above the therese. Nasogastric tube tip below the diaphragm out of the field of view. [employer]-Kaleb catheter. Right internal jugular central venous catheter unchanged. Left thoracotomy tube unchanged. EKG leads. Lungs: Interval resolution of the previously demonstrated interstitial edema. Pleural space: No visible pleural effusion or pneumothorax. Heart/Mediastinum: Cardiac structures and configuration without cardiomegaly. Status post sternotomy chest and CABG. Bones/joints: Unremarkable. XR/XR chest 1V portable [id number] IMPRESSION: 1. Endotracheal tube tip now in satisfactory position above the therese. 2. Interval resolution of previously demonstrated interstitial edema.
--- NOTE | 2020-12-08 22:00 | PC.NURSE ---
Dr. Askew called to floor for update on chest tube output. Notified of hrly outputs. Outputs steadily decreasing. Labs, assessment, and hemodynamics reviewed with physician. No further orders at this time. Continue to monitor.
[2020-12-08 22:12] LABS: Glucose Point of Care 135 mg/dL (70-110)
[2020-12-08 22:13] LABS: Glucose Point of Care 127 mg/dL (70-110)
[2020-12-08 22:13] LABS: Glucose Point of Care 145 mg/dL (70-110)
[2020-12-08] MEDS: propofol 1,000 MG/100 ML INJ 15.3 MG IV (22:30)
[2020-12-09] VITALS (90 sets, daily range): BP systolic 95–155; BP diastolic 46–80; PULSE 72–94; RESP 10–29; TEMP 37.2–38; O2SAT 60–100
[2020-12-09 00:04] LABS: Basophils % 0.3 %; Eosinophils % 0.1 %; Hematocrit 30.7 % (37.0-47.0); Hemoglobin 9.9 g/dL (11.5-15.3); Lymphocytes # 0.8 10^3/uL (0.8-4.8); Lymphocytes % 7.1 %; Mean Corpuscular HGB Conc 32.2 g/dL (30.0-36.0); Mean Corpuscular Hemoglobin 29.5 pg (28.0-34.0); Mean Corpuscular Volume 91.4 fL (81-99); Mean Platelet Volume 9.9 fL (7.4-10.4); Monocytes # 1.1 10^3/uL (0.2-0.9); Monocytes % 9.5 %; Neutrophils # 9.47 10^3/uL (1.8-7.7); Neutrophils % 82.6 %; Nucleated Red Blood Cells % 0 %; Platelet Count 171 10^3/cmm (130-400); Red Blood Count 3.36 10^6/uL (4.1-5.3); Red Cell Distribution Width 12.6 % (12.1-15.1); White Blood Count 11.5 10^3/uL (4.0-10.0)
[2020-12-09 00:20] LABS: Anion Gap 10.3 (5-19); Blood Urea Nitrogen 13 mg/dL (8-23); Carbon Dioxide 23 mmol/L (22-29); Chloride 111 mmol/L (98-107); Creatinine Clr Calc Pharmacy 71.4385; Glomerular Filtration Rate 158.3 mL/min (90-130); Glucose 158 mg/dL (65-115); Osmolality Calculated 293 mOsm/kg (285-295); Potassium 4.3 mmol/L (3.5-5.1); Sodium 140 mmol/L (136-145)
[2020-12-09] MEDS: fentaNYL 50 mcg/mL INJ 2mL IVP ×10 (01:22→21:52)
[2020-12-09] MEDS: midazolam 1 mg/mL INJ 2 mL IVP (02:03)
[2020-12-09] MEDS: oxyCODONE-APAP 5-325 mg Tablet PO ×2 (02:44→21:25)
[2020-12-09 04:27] LABS: Basophils % 0.2 %; Eosinophils % 0.1 %; Hemoglobin 8.5 g/dL (11.5-15.3); Lymphocytes # 1.2 10^3/uL (0.8-4.8); Lymphocytes % 14.3 %; Mean Corpuscular HGB Conc 31.5 g/dL (30.0-36.0); Mean Corpuscular Hemoglobin 29.6 pg (28.0-34.0); Mean Corpuscular Volume 94.1 fL (81-99); Mean Platelet Volume 10.2 fL (7.4-10.4); Monocytes % 11.6 %; Neutrophils # 6.14 10^3/uL (1.8-7.7); Neutrophils % 73.4 %; Nucleated Red Blood Cells % 0 %; Platelet Count 144 10^3/cmm (130-400); Red Blood Count 2.87 10^6/uL (4.1-5.3); White Blood Count 8.4 10^3/uL (4.0-10.0)
[2020-12-09] MEDS: propofol 1,000 MG/100 ML INJ 20.4 MG IV (04:29)
[2020-12-09 04:33] LABS: INR 1.15 (0.8-1.2)
[2020-12-09 04:34] LABS: Partial Thromboplastin Time 33.4 SECONDS (23.9-36.7)
[2020-12-09 04:39] LABS: ABG PCO2 33.7 mmHg (35-45); ABG PH Result 7.44 (7.35-7.45); Arterial Blood Gas Hematocrit 25.8 % (37-47); Base Excess ABG -0.9 mmol/L (-2.0-2.0); Blood Gas Allen Test Pos; Blood Gas Operator Identificat JB; Blood Gas Sample Site Not specified; Blood Gas Sample Type Arterial; Carboxyhemoglobin 0.2 %THgb (0.4-20.1); HCO3 ABG 22.9 mmol/L (22-26); HGB O2 Sat 93.8 % (95-100); Ionized Calcium Level - ABG 1.2 mmol/L (1.1-1.4); Methemoglobin 1.2 % (0.4-1.5); Oxygen Device VENT; Oxygen Saturation ABG 95.2; PO2 ABG 73.5 mmHg (80.0-100.0); Potassium Level - ABG 3.6 mmol/L (3.5-5.0); Total Hemoglobin 8.4 g/dL (12-16)
[2020-12-09 04:41] LABS: Alveolar-Arterial Oxygen Gradi 22.2 mmHg (5-10)
[2020-12-09 04:58] LABS: Alanine Aminotransferase 18 U/L (0-33); Albumin Level 3.2 g/dL (3.5-5.2); Alkaline Phosphatase 63 IU/L (35-105); Anion Gap 10.9 (5-19); Aspartate Amino Transferase 35 U/L (0-32); Blood Urea Nitrogen 14 mg/dL (8-23); Calcium 8.1 mg/dL (8.5-10.5); Carbon Dioxide 24 mmol/L (22-29); Chloride 112 mmol/L (98-107); Globulin 1.3 g/dL (1.3-4.6); Glomerular Filtration Rate 158.3 mL/min (90-130); Osmolality Calculated 298 mOsm/kg (285-295); Potassium 3.9 mmol/L (3.5-5.1); Sodium 143 mmol/L (136-145); Total Bilirubin 0.7 mg/dL (0.15-1.2); Total Protein 4.5 g/dL (6.6-8.7)
[2020-12-09] MEDS: sodium chloride 0.9% 1,000 ML 75 ML IV ×2 (05:28→20:54)
[2020-12-09 05:30] LABS: Glucose 124 mg/dL (65-115)
--- NOTE | 2020-12-09 06:00 | XRR_ITS ---
PROCEDURE INFORMATION: Exam: XR Chest, 1 View Exam date and time: 12/09/2020 5:47 AM Age: 70 years old Clinical indication: Device placement; Other: Cabg; Prior surgery; Surgery date: Post-operative (0-2 days); Additional info: Postop day #1 status post cabg TECHNIQUE: Imaging protocol: XR of the chest Views: 1 view. COMPARISON: CR XR chest 1V portable [id number] 12/08/2020 9:01 PM FINDINGS: Tubes, catheters and devices: Similar position of [place]Kaleb catheter. Endotracheal tube tip resides 3.0 cm above the therese. Persistent left chest tube. Additional right internal jugular central vascular catheter tip is positioned at the upper right mediastinum likely brachiocephalic distribution. Lungs: Minor retrocardiac left lower lung atelectasis. Pleural space: No pneumothorax. Heart/Mediastinum: Mediastinal drains. Bones/joints: Postoperative sternotomy. XR/XR chest 1V portable [id number] IMPRESSION: Retrocardiac left lower lobe atelectasis.
--- NOTE | 2020-12-09 06:00 | ECG_ITS ---
[facility] Test Date: 2020-12-09 Pat Name: Yasmani Teixeira Department: Room: ICU10 Gender: Female Dye Box Operator: : 1950 Requested By: David Parra Order Number: [id number] Ryder MD: Nguyen Swanson M.D. Measurements Intervals [place] Rate: 80 P: 57 [place]: 147 QRS: 33 QRSD: 84 T: 142 QT: 439 QTc: 509 Interpretive Statements SINUS RHYTHM ST DEVIATION AND MODERATE T-WAVE ABNORMALITY, CONSIDER ANTEROLATERAL ISCHEMIA [-0.1+ mV T WAVE IN V3-V6] Compared to ECG 12/08/2020 16:38:49 No significant changes Electronically Signed On 12-09-2020 20:23:46 PIGMENT WEIGHER by Nguyen Swanson M.D. [id number]
[2020-12-09] MEDS: potassium chloride premix 100 ML 50 MEQ IV (07:05)
--- NOTE | 2020-12-09 07:12 | PM.PN ---
Subjective Subjective: Interval history: Hemodynamically stable throughout the night though chest tube output was greater than usual, with a total of just over 800 cc since surgery. Just now receiving her second unit of packed RBCs. She also received units of fresh frozen plasma overnight. She remained quite hemodynamically stable throughout the night with only occasional PVC. EKG is unchanged from preop. Chest x-ray is quite clear with a narrow mediastinum and normal cardiac silhouette. No pleural effusions. Support lines in good position. I have elected to keep her sedated through the evening as we watch chest tube output. He began to substantially decrease by midnight. Adequate oxygenation on 40% FiO2. Intake and output is up approximate 1.6 L Vitals/I&O/Wt Last Vital Signs Temp 99.7 F H 12/09/20 06:53 Pulse 80 12/09/20 07:00 Resp 12 12/09/20 06:53 BP 121/67 12/09/20 07:00 Pulse Ox 96 12/09/20 07:00 12/08/20 12/09/20 12/09/20 22:59 06:59 14:59 Intake Total 2391.743 / 2531.743 2113.618 / 4645.361 Output Total 2778 / 2778 519 / 3297 Balance -386.257 / -298.859 2263.618 / 1348.361 Weight last 48 hrs Weight 220 lb 6.4 oz Weight 187 lb 4.8 oz Physical Exam Chest: COMMONS NORMALS: normal inspection of the chest and normal palpation of entire chest wall OTHER: Dressings and support lines are in position. Most of the output has been from the mediastinal drains. This does appear to be slowing. Resp: COMMON NORMALS: clear to auscultation bilaterally AUSCULTATION: clear to auscultation bilaterally Cardio: COMMON NORMALS: S1 normal heart sound present HEART SOUNDS: S1 normal heart sound present OTHER: Somewhat distant heart sounds Extremity: OTHER: 1+ edema. Facial edema improving. Urinary Catheter Management^: Garcia: Cath Placed During This Visit: yes Reason for Continuing Indwelling Catheter: Accurate Measurement of Urinary Output in Critically Ill Patients Urinary Catheter Date of Insertion: 12/08/20 Urinary Catheter Time of Insertion: 08:18 Data : 12/09/20 04:05 12/09/20 04:05 A&P Assessment and plan (1) Status post aorto-coronary artery bypass graft: Postop day #1. Chest tube output is now decreasing over the past 7 hours. Plan: CBC, BMP at 12 noon. CBC, BMP, chest x-ray in a.m. Lasix 20 mg IV now. Aspirin 81 mg daily. Lipitor 20 mg nightly. Will begin emerging from sedation and weaning ventilator. Status: Acute Attestations Medical Necessity Statement*: Postop day #1 status post CABG Time Spent in Patient Care: 16 - 35 minutes Coding Level of Care Code Acute Corporate Legal Manager for Chg Fwd Diagnoses Status post aorto-coronary artery bypass graft Z95.1
[2020-12-09] MEDS: FUROsemide 10 mg/mL SDV 2mL 20 MG IVP (07:15)
--- NOTE | 2020-12-09 07:42 | PC.NURSE ---
Dr. Parra and Will TRANSCRIPTION COORDINATOR in room assessing pt. Pt is doing well.
[2020-12-09] MEDS: aspirin 81 mg Chew Tablet PO (08:33)
[2020-12-09] MEDS: chlorhexidine gluconate 0.12% Btl 473 mL 15 ML MUCOUS MEM ×2 (08:34→18:51)
[2020-12-09] MEDS: propofol 1,000 MG/100 ML INJ 25.5 MG IV (08:35)
--- NOTE | 2020-12-09 08:35 | PC.NURSE ---
Med documentation. Oral rinse bottle would not scan. It popped up a window saying that the med was on hold and could not be administered at this time. Order was double checked by 2 RN and it is correctly on the MAR. Manually put in that it was given.
--- NOTE | 2020-12-09 08:52 | PC.CHAP ---
Pastoral Care Encounter/Spiritual Assessment Type of Contact [] Declined mechanic senior visit [] Patient/Family/Request visit [] Outpatient visit [] Follow-up visit [] Physician referral [] Code/Alert [] Routine visit [] Staff referral [] Actively dying [] Patient sleeping [] Family support [] [] Out of room [] Palliative care [] [] Receiving care in room [] Pre-surgical visit [] Trauma [] Long length of stay [x] ICU visit [] Other: Relational/Emotional Strength [] Patient feels connected with others/family/visitors/staff [] Distress [] Loneliness/isolation [] Abandonment Spirituality of Patient [] Person of Vilma [] Attends Yarsani of their Vilma [] Believes in Prayer [] Reads Bible or Hoahaoism materials [] There are Spiritual issues to be addressed Funeral Location Manager Interventions [x] Prayer [] Active listening [] Non-anxious presence [] Spiritual/emotional support [] Crisis/trauma care [] Spiritual counseling [] Bereavement support [] Provided bereavement packet [] Provided Bible/devotional materials [] Provided toy/stuffed animal, coloring book to patient or family member [] Provided Communion [] Anointing/[place] [] Salvation [x] Completed spiritual assessment [] Other: Impact on Illness or Injury [] Angry [] Fearful [] Anxious [] Often cries [] Exhaustion [] Unable to work [] Unable to attend church [] Unable to walk/stand [] Unable to read [] Unable to drive [] Unable to eat/drink [] Unable to sleep [] Unable to be with family [] Patient intubated [] Other: Summary Time spent with patient
--- NOTE | 2020-12-09 09:17 | PC.SOCIAL ---
IMM Not Updated Patient intubated. Copy left at bedside.
--- NOTE | 2020-12-09 09:25 | P.PN_ITS ---
Subjective Subjective: Interval history: Patient underwent a three-vessel coronary bypass surgery by Dr. Parra yesterday. She had a VALLES to the LAD and a venous graft to the diagonal and obtuse marginal artery. She is currently extubated. Mainly complaining of pain at the incision sites. Urine output is good. Cardiac output is 6.1 with an index of 3.2. Vital signs seems to be stable. Medications: Reviewed: Yes Medication Review Details: Current Medications Acetaminophen (Acetaminophen 325 Mg Tablet) 650 mg PO Q6H PRN PRN Reason: Mild/Mod Pain Or Temp >/= 101 Last Admin: 12/06/20 05:30 Dose: 650 mg Documented by: Acetaminophen (Acetaminophen 325 Mg Tablet) 650 mg PO Q6H PRN PRN Reason: MILD PAIN Hydrocodone Bitart/Acetaminophen (Hydrocodone-Acetaminophen 10-325 Mg Tablet) 1 tab PO Q6H PRN PRN Reason: Pain Last Admin: 12/07/20 23:20 Dose: 1 tab Documented by: Alprazolam (Alprazolam 0.25 Mg Tablet) 0.25 mg PO TID PRN PRN Reason: ANXIETY Last Admin: 12/07/20 22:19 Dose: 0.25 mg Documented by: Aspirin (Aspirin 325 Mg Ec Tablet) 325 mg PO DAILY [facility] Last Admin: 12/07/20 08:51 Dose: 325 mg Documented by: Aspirin (Aspirin 81 Mg Chew Tablet) 81 mg PO DAILY [facility] Last Admin: 12/09/20 08:33 Dose: 81 mg Documented by: Atorvastatin Calcium (Atorvastatin 40 Mg Tablet) 40 mg PO BEDTIME [facility] Last Admin: 12/07/20 20:15 Dose: 40 mg Documented by: Atorvastatin Calcium (Atorvastatin 40 Mg Tablet) 20 mg PO BEDTIME [facility] Atropine Sulfate (Atropine 1 Mg/Ml Sdv 1 Ml) 0.5 mg IVP PRN PRN PRN Reason: Symptomatic bradycardia Baclofen (Baclofen 10 Mg Tablet) 10 mg PO BID PRN PRN Reason: Muscle Spasm Last Admin: 12/07/20 08:52 Dose: 10 mg Documented by: Chlorhexidine Gluconate (Chlorhexidine Gluconate 0.12% Btl 473 Ml) 15 ml MUCOUS MEM BID [facility] Last Admin: 12/07/20 17:17 Dose: 1 applic Documented by: Chlorhexidine Gluconate (Chlorhexidine Gluconate 4% Btl 118 Ml) 1 applic TOPICAL DAILY [facility] Last Admin: 12/07/20 17:18 Dose: 1 applic Documented by: Chlorhexidine Gluconate (Chlorhexidine Gluconate 0.12% Btl 473 Ml) 15 ml MUCOUS MEM BID [facility] Last Admin: 12/09/20 08:34 Dose: 1 applic Documented by: Dextrose (Dextrose 50% Syringe 50 Ml) 50 ml IVP PRN PRN; Protocol PRN Reason: hypoglycemia protocol Dextrose (Dextrose 50% Syringe 50 Ml) 25 ml IVP ONCE PRN; Protocol PRN Reason: hypoglycemia protocol Epinephrine (Racepinephrine 0.5 Ml Neb) 0.5 ml INHALATION Q6H.RESPIRATORY PRN PRN Reason: Stridor Fentanyl (Fentanyl 50 Mcg/Ml Inj 2ml) 50 mcg IVP Q1H PRN PRN Reason: SEVERE PAIN Last Admin: 12/09/20 07:38 Dose: 50 mcg Documented by: Glucagon (Glucagon 1 Mg/Ml Inj 1 Ml) 1 mg IM ONCE PRN; Protocol PRN Reason: Adult Acute Hypoglycemia Prot. Glucagon (Glucagon 1 Mg/Ml Inj 1 Ml) 1 mg IM ONCE PRN; Protocol PRN Reason: Adult Acute Hypoglycemia Prot Heparin Sodium (Beef Lung) (Heparin 5,000 Unit/Ml Inj 1 Ml) 0 unit IV PRN PRN; Protocol PRN Reason: Heparin weight-base protocol Last Admin: 12/07/20 10:35 Dose: 42,000 unit Documented by: Hydralazine HCl (Hydralazine 20 Mg/Ml Inj 1 Ml) 5 mg IVP ONCE PRN PRN Reason: Systolic BP > 140 mmHg Sodium Chloride (Sodium Chloride 0.9%) 1,000 mls @ 75 mls/hr IV .[id number] [facility] Last Admin: 12/07/20 17:17 Dose: 75 mls/hr Documented by: Nitroglycerin/Dextrose (Nitroglycerin Drip) 50 mg in 250 mls @ 0 mls/hr IV .Q0M [facility]; Protocol Last Titration: 12/08/20 17:19 Dose: Infused Documented by: Insulin Human Regular 250 unit (/ Sodium Chloride) 252.5 mls @ 0 mls/hr IV .Q0M RANDY; Protocol Last Titration: 12/08/20 17:19 Dose: Infused Documented by: Propofol (Diprivan) 1,000 mg in 100 mls @ 0 mls/hr IV .Q0M [facility]; Protocol Last Titration: 12/09/20 09:22 Dose: 30 mcg/kg/min, 15.3 mls/hr Documented by: Nitroglycerin/Dextrose (Nitroglycerin Drip) 50 mg in 250 mls @ 0 mls/hr IV .Q0M RANDY; Protocol Albumin Human (Albumin) 12.5 gm in 250 mls @ 600 mls/hr IV PRN PRN PRN Reason: For CVP < 4 or SBP< 90 Last Infusion: 12/08/20 22:30 Dose: Infused Documented by: Insulin Human Regular 250 unit (/ Sodium Chloride) 252.5 mls @ 0 mls/hr IV .Q0M RANDY; Protocol Sodium Nitroprusside 50 mg/ (Dextrose) 252 mls @ 0 mls/hr IV .Q0M RANDY; Protocol Labetalol HCl 300 mg/ Sodium (Chloride) 300 mls @ 30 mls/hr IV .Q10H PRN; Protocol PRN Reason: Systolic BP > 140 mmHg Dopamine HCl/Dextrose (Intropin Drip) 400 mg in 250 mls @ 15.93 mls/hr IV CONT PRN; Protocol PRN Reason: Hypotension Amiodarone HCl 900 mg/Dextrose/ IV Miscellaneous Supplies 518 mls @ 0 mls/hr IV .Q0M RANDY; Protocol Stop: 12/09/20 15:54 Cefuroxime Sodium 1,500 mg/ (Sodium Chloride) 100 mls @ 200 mls/hr IV Q12H RANDY; Protocol Stop: 12/10/20 14:29 Last Infusion: 12/09/20 02:44 Dose: Infused Documented by: Dobutamine HCl/Dextrose (Dobutamine Drip) 500 mg in 250 mls @ 0 mls/hr IV .Q0M PRN; Protocol PRN Reason: Cardiac Output Norepinephrine Bitartrate 4 mg (/ Dextrose) 254 mls @ 10.583 mls/hr IV .Q24H PRN; Protocol PRN Reason: HYPOTENSION Phenylephrine HCl 25 mg/ (Sodium Chloride) 252.5 mls @ 0 mls/hr IV .Q0M PRN; Protocol PRN Reason: HYPOTENSION Last Titration: 12/09/20 01:05 Dose: 0 mcg/min, 0 mls/hr Documented by: Dextrose (D5w) 500 mls @ 100 mls/hr IV ONCE PRN; Protocol PRN Reason: Adult Acute Hypoglycemia Prot Sodium Chloride (Sodium Chloride 0.9%) 1,000 mls @ 75 mls/hr IV .[id number] [facility] Last Admin: 12/09/20 05:28 Dose: 75 mls/hr Documented by: Labetalol HCl (Labetalol 5 Mg/Ml Sdv 20ml) 10 mg IVP Q5M PRN PRN Reason: Systolic BP >140 mmHG Lanolin (Lanolin Oint 7 Gm) 1 applic TOPICAL PRN PRN PRN Reason: DRYNESS Levothyroxine Sodium (Levothyroxine 125 Mcg Tablet) 125 mcg PO QAM [facility] Last Admin: 12/07/20 20:16 Dose: Not Given Documented by: Magnesium Hydroxide (Magnesium Hydroxide 30 Ml Udc) 30 ml PO DAILY PRN PRN Reason: CONSTIPATION Metoprolol Tartrate (Metoprolol Tartrate 25 Mg Tablet) 25 mg PO BID@0900,2100 [facility] Last Admin: 12/07/20 20:15 Dose: 25 mg Documented by: Midazolam HCl (Midazolam 1 Mg/Ml Inj 2 Ml) 1 mg IVP Q1H PRN PRN Reason: Sedation for Montoya score < 4. Last Admin: 12/09/20 02:03 Dose: 1 mg Documented by: Morphine Sulfate (Morphine 4 Mg/Ml Sdv 1 Ml) 2 mg IVP Q1H PRN PRN Reason: BREAKTHROUGH PAIN Last Admin: 12/08/20 21:58 Dose: 2 mg Documented by: Mupirocin (Mupirocin Oint 22 Gm) 1 applic NASAL BID [facility] Last Admin: 12/08/20 05:57 Dose: 1 applic Documented by: Naloxone HCl (Naloxone 0.4 Mg/Ml Sdv) 0.1 mg IVP Q2M PRN PRN Reason: RESPIRATORY RATE < 8/MIN Naloxone HCl (Naloxone 0.4 Mg/Ml Sdv) 0.1 mg IVP Q2M PRN PRN Reason: OPIATERV Nitroglycerin (Nitroglycerin 0.4 Mg Sublingual Tablet) 0.4 mg SUBLINGUAL Q5M PRN PRN Reason: CHEST PAIN Last Admin: 12/05/20 22:41 Dose: 1 tab Documented by: Ondansetron HCl (Ondansetron 2 Mg/Ml Sdv 2 Ml) 4 mg IVP Q8H PRN PRN Reason: vomiting, or N/V if npo Last Admin: 12/08/20 05:51 Dose: 4 mg Documented by: Ondansetron HCl (Ondansetron 2 Mg/Ml Sdv 2 Ml) 4 mg IVP Q6H PRN PRN Reason: NAUSEA Oxycodone/Acetaminophen (Oxycodone-Apap 5-325 Mg Tablet) 1 - 2 tab PO Q6H PRN PRN Reason: MILD TO MODERATE PAIN Last Admin: 12/09/20 02:44 Dose: 2 tab Documented by: Pantoprazole Sodium (Pantoprazole Dr 40 Mg Tablet) 40 mg PO DAILY RANDY Last Admin: 12/07/20 08:51 Dose: 40 mg Documented by: Zolpidem Tartrate (Zolpidem 10 Mg Tablet) 10 mg PO BEDTIME PRN PRN Reason: Sleep Last Admin: 12/07/20 20:15 Dose: 10 mg Documented by: Vitals/I&O/Wt Last Vital Signs Temp 99.7 F H 12/09/20 06:53 Pulse 78 12/09/20 09:15 Resp 15 12/09/20 09:00 BP 124/68 12/09/20 09:15 Pulse Ox 94 12/09/20 09:15 12/08/20 12/09/20 12/09/20 22:59 06:59 14:59 Intake Total 2391.743 / 2531.743 2113.618 / 4645.361 96.475 / 96.475 Output Total 2778 / 2778 519 / 3297 1045 / 1045 Balance -386.257 / -508.084 8755.618 / 1348.361 -948.525 / -948.525 Weight last 48 hrs Weight 220 lb 6.4 oz Weight 187 lb 4.8 oz Physical Exam Narrative: EXAM NARRATIVE: GENERAL: The patient is alert and responds appropriately. HEENT: No significant pallor, icterus or lymphadenopathy. Oral cavity: There are no mucous membrane lesions. NECK: Trachea appears to be central. No JVD. No bleeding at the catheter sites. RESPIRATORY: Breath sounds are heard bilaterally with occasional scattered crackles BREASTS: Deferred. HEART: Heart sounds are normal. No S3. No significant murmurs. ABDOMEN: Bowel sounds are normally heard. No abdominal distention. : Deferred. RECTAL: Deferred. LYMPHATIC: No lymphadenopathy noted in the neck or groin. EXTREMITIES: No bleeding from the resection sites. MUSCULOSKELETAL: No acute joint deformities or swelling SKIN: T no rashes or ecchymosis. NEUROPSYCHIATRIC: No focal motor deficits. Const: COMMON NORMALS: alert Resp: COMMON NORMALS: clear to auscultation bilaterally AUSCULTATION: clear to auscultation bilaterally Neuro: SENSORIUM/ORIENTATION: Yes alert Urinary Catheter Management^: Garcia: Cath Placed During This Visit: yes Reason for Continuing Indwelling Catheter: Accurate Measurement of Urinary Output in Critically Ill Patients Urinary Catheter Date of Insertion: 12/08/20 Urinary Catheter Time of Insertion: 08:18 Data : 12/09/20 12:10 12/09/20 12:10 A&P Assessment and plan (1) Atherosclerotic heart disease of [place] coronary artery without angina pectoris: Patient status post non-ST relation myocardial infarction, status post three-vessel coronary bypass surgery, day #2. Currently seems to be stable Status: Acute Qualifiers: [place] vs. transplanted heart: [place] heart Qualified Code(s): I25.10 - Atherosclerotic heart disease of [place] coronary artery without angina pectoris (2) Non-ST elevation [place] (NSTEMI): May gradually restart her medications. Restarted the aspirin. Patient also be started on Protonix p.o. Status: Acute (3) Hypothyroid: Clinically euthyroid. May continue on the current medications. Status: Acute Qualifiers: Hypothyroidism type: acquired Qualified Code(s): E03.9 - Hypothyroidism, unspecified (4) Dyslipidemia (high LDL; low HDL): May restart the Lipitor. Status: Acute (5) Uncontrolled type 2 diabetes with neuropathy: Aggressive management of the diabetes as per the primary Status: Chronic Additional A&P Information May gradually restart other medications. Attestations Medical Necessity Statement*: Patient requires continued hospital stay for close monitoring and further management Coding Level of Care Code Acute Process Manufacturing Engineer for [facility] Fwd Exam Expanded Problem Focused Diagnoses Atherosclerotic heart disease of [place] coronary artery without angina pectoris I25.10 [place] vs. transplanted heart: [place] heart Non-ST elevation AL (NSTEMI) I21.4 Hypothyroid E03.9 Hypothyroidism type: acquired Dyslipidemia (high LDL; low HDL) E78.5 Uncontrolled type 2 diabetes with neuropathy E11.40; E11.65
--- NOTE | 2020-12-09 09:47 | PC.NURSE ---
Blood clot noted in cordis while flushing blood from the PRBC bag. Will, CHEMICAL PLANT WORKER came and assisted with removing clot and flushing the line. NS hooked up to line after line cleared.
--- NOTE | 2020-12-09 10:15 | PC.NURSE ---
Pt is off sedation. Responding to verbal commands. Awaiting respiratory to attempt extubation.
--- NOTE | 2020-12-09 10:27 | PC.NURSE ---
BP increasing to 150's systolic. NItro started at 5 mcg.
[2020-12-09] MEDS: nitroglycerin drip 50 MG/250 ML PREMIX 6 MG IV (10:39)
[2020-12-09] MEDS: morphine 4 mg/mL SDV 1 mL 2 MG IVP ×2 (11:05→12:17)
[2020-12-09 12:21] LABS: Basophils % 0.3 %; Eosinophils % 0.3 %; Hematocrit 31.4 % (37.0-47.0); Hemoglobin 10.3 g/dL (11.5-15.3); Lymphocytes # 1.2 10^3/uL (0.8-4.8); Lymphocytes % 11.3 %; Mean Corpuscular HGB Conc 32.8 g/dL (30.0-36.0); Mean Corpuscular Hemoglobin 29.7 pg (28.0-34.0); Mean Corpuscular Volume 90.5 fL (81-99); Mean Platelet Volume 10.1 fL (7.4-10.4); Monocytes # 1.1 10^3/uL (0.2-0.9); Neutrophils # 7.86 10^3/uL (1.8-7.7); Neutrophils % 76.8 %; Nucleated Red Blood Cells % 0 %; Platelet Count 141 10^3/cmm (130-400); Red Blood Count 3.47 10^6/uL (4.1-5.3); Red Cell Distribution Width 13.8 % (12.1-15.1); White Blood Count 10.2 10^3/uL (4.0-10.0)
--- NOTE | 2020-12-09 12:30 | PC.NUTR ---
NUTR CABG CONSULT: Consult received. Will cont to monitor progress, diet advancement and PO intake. Assess as needed.
--- NOTE | 2020-12-09 12:41 | PC.OT ---
WILL HOLD OT EVALUATION UNTIL TOMORROW PATIENT IS BEING EXTUBATED TODAY.
[2020-12-09 12:42] LABS: Anion Gap 10.7 (5-19); Blood Urea Nitrogen 13 mg/dL (8-23); Calcium 8.3 mg/dL (8.5-10.5); Carbon Dioxide 23 mmol/L (22-29); Chloride 110 mmol/L (98-107); Glomerular Filtration Rate 158.3 mL/min (90-130); Glucose 144 mg/dL (65-115); Osmolality Calculated 293 mOsm/kg (285-295); Potassium 3.7 mmol/L (3.5-5.1); Sodium 140 mmol/L (136-145)
--- NOTE | 2020-12-09 12:42 | ANE.PACU2 ---
Inpatient post-anesthesia follow up: Airway intact: No Vital signs: Temperature 99.7 F Pulse Rate [Left R adial] 101 Pulse Rate 86 Respiratory Rate 20 Blood Pressure [Ri ght Arm] 176/101 Blood Pressure 125/66 Pulse Oximetry 92 Oxygen Delivery Me thod Mechanical Ventila tion Oxygen Flow Rate 15 Fraction of Inspir ed Oxygen 35 Hydration adequate: Yes Nausea and vomiting: No Pain level: 1 Mental status: Altered
[2020-12-09] MEDS: HYDROmorphone 1 mg/mL INJ 1 mL 0.5 MG IVP ×3 (13:28→19:43)
--- NOTE | 2020-12-09 14:19 | PM.EVENT ---
Event Note Event Note: Entered order for Dilaudid and stopped morphine as nursing/anes services were having technical difficulty entering verbal order into EMR from CT surgery.
[2020-12-09 14:31] LABS: Glucose Point of Care 123 mg/dL (70-110)
[2020-12-09 14:31] LABS: Glucose Point of Care 120 mg/dL (70-110)
[2020-12-09 14:31] LABS: Glucose Point of Care 97 mg/dL (70-110)
[2020-12-09 14:31] LABS: Glucose Point of Care 127 mg/dL (70-110)
[2020-12-09 14:31] LABS: Glucose Point of Care 108 mg/dL (70-110)
[2020-12-09 14:31] LABS: Glucose Point of Care 119 mg/dL (70-110)
[2020-12-09 14:31] LABS: Glucose Point of Care 113 mg/dL (70-110)
[2020-12-09 14:31] LABS: Glucose Point of Care 124 mg/dL (70-110)
[2020-12-09 14:31] LABS: Glucose Point of Care 127 mg/dL (70-110)
[2020-12-09 14:31] LABS: Glucose Point of Care 131 mg/dL (70-110)
[2020-12-09 14:31] LABS: Glucose Point of Care 109 mg/dL (70-110)
[2020-12-09 14:31] LABS: Glucose Point of Care 64 mg/dL (70-110)
[2020-12-09 14:31] LABS: Glucose Point of Care 105 mg/dL (70-110)
[2020-12-09 14:31] LABS: Glucose Point of Care 108 mg/dL (70-110)
[2020-12-09 14:41] LABS: Glucose Point of Care 153 mg/dL (70-110)
--- NOTE | 2020-12-09 15:02 | PC.NURSE ---
Med late due to staff assisting other pt and nurse.
[2020-12-09] MEDS: metoprolol tartrate 25 mg Tablet 12.5 MG PO ×2 (16:54→21:24)
[2020-12-09 18:29] LABS: Glucose Point of Care 151 mg/dL (70-110)
[2020-12-09 18:29] LABS: Glucose Point of Care 147 mg/dL (70-110)
[2020-12-09 18:29] LABS: Glucose Point of Care 146 mg/dL (70-110)
[2020-12-09 18:47] LABS: Glucose Point of Care 190 mg/dL (70-110)
[2020-12-09 19:27] LABS: Glucose Point of Care 179 mg/dL (70-110)
--- NOTE | 2020-12-09 20:17 | PC.NURSE ---
Left radial art line discontinued per orders of Dr. Askew. Pressure held until hemostasis acheived. Sterile dry dressing placed to left wrist. Pt educated on signs and symptoms to report. Pt tolerated well.
[2020-12-09] MEDS: ondansetron 2 mg/ML SDV 2 mL 4 MG IVP (20:55)
--- NOTE | 2020-12-09 21:13 | P.PN_ITS ---
Subjective Subjective: Interval history: In the last 24 h : Vitals stable, has remained afebrile, good saturation on 40 % FIO2. chest tube output 800 cc since surgery. S/P 2U PRBCs and units of FFP overnight. EKG is unchanged from preop. Chest x-ray: Satisfactory Medications: Reviewed: Yes Medication Review Details: Current Medications Acetaminophen (Acetaminophen 325 Mg Tablet) 650 mg PO Q6H PRN PRN Reason: Mild/Mod Pain Or Temp >/= 101 Last Admin: 12/06/20 05:30 Dose: 650 mg Documented by: Acetaminophen (Acetaminophen 325 Mg Tablet) 650 mg PO Q6H PRN PRN Reason: MILD PAIN Hydrocodone Bitart/Acetaminophen (Hydrocodone-Acetaminophen 10-325 Mg Tablet) 1 tab PO Q6H PRN PRN Reason: Pain Last Admin: 12/07/20 23:20 Dose: 1 tab Documented by: Alprazolam (Alprazolam 0.25 Mg Tablet) 0.25 mg PO TID PRN PRN Reason: ANXIETY Last Admin: 12/07/20 22:19 Dose: 0.25 mg Documented by: Aspirin (Aspirin 325 Mg Ec Tablet) 325 mg PO DAILY [facility] Last Admin: 12/07/20 08:51 Dose: 325 mg Documented by: Aspirin (Aspirin 81 Mg Chew Tablet) 81 mg PO DAILY [facility] Last Admin: 12/09/20 08:33 Dose: 81 mg Documented by: Atorvastatin Calcium (Atorvastatin 40 Mg Tablet) 40 mg PO BEDTIME [facility] Last Admin: 12/07/20 20:15 Dose: 40 mg Documented by: Atorvastatin Calcium (Atorvastatin 40 Mg Tablet) 20 mg PO BEDTIME [facility] Atropine Sulfate (Atropine 1 Mg/Ml Sdv 1 Ml) 0.5 mg IVP PRN PRN PRN Reason: Symptomatic bradycardia Baclofen (Baclofen 10 Mg Tablet) 10 mg PO BID PRN PRN Reason: Muscle Spasm Last Admin: 12/07/20 08:52 Dose: 10 mg Documented by: Chlorhexidine Gluconate (Chlorhexidine Gluconate 0.12% Btl 473 Ml) 15 ml MUCOUS MEM BID [facility] Last Admin: 12/07/20 17:17 Dose: 1 applic Documented by: Chlorhexidine Gluconate (Chlorhexidine Gluconate 4% Btl 118 Ml) 1 applic TOPICAL DAILY [facility] Last Admin: 12/07/20 17:18 Dose: 1 applic Documented by: Chlorhexidine Gluconate (Chlorhexidine Gluconate 0.12% Btl 473 Ml) 15 ml MUCOUS MEM BID [facility] Last Admin: 12/09/20 08:34 Dose: 1 applic Documented by: Dextrose (Dextrose 50% Syringe 50 Ml) 50 ml IVP PRN PRN; Protocol PRN Reason: hypoglycemia protocol Dextrose (Dextrose 50% Syringe 50 Ml) 25 ml IVP ONCE PRN; Protocol PRN Reason: hypoglycemia protocol Epinephrine (Racepinephrine 0.5 Ml Neb) 0.5 ml INHALATION Q6H.RESPIRATORY PRN PRN Reason: Stridor Fentanyl (Fentanyl 50 Mcg/Ml Inj 2ml) 50 mcg IVP Q1H PRN PRN Reason: SEVERE PAIN Last Admin: 12/09/20 07:38 Dose: 50 mcg Documented by: Glucagon (Glucagon 1 Mg/Ml Inj 1 Ml) 1 mg IM ONCE PRN; Protocol PRN Reason: Adult Acute Hypoglycemia Prot. Glucagon (Glucagon 1 Mg/Ml Inj 1 Ml) 1 mg IM ONCE PRN; Protocol PRN Reason: Adult Acute Hypoglycemia Prot Heparin Sodium (Beef Lung) (Heparin 5,000 Unit/Ml Inj 1 Ml) 0 unit IV PRN PRN; Protocol PRN Reason: Heparin weight-base protocol Last Admin: 12/07/20 10:35 Dose: 42,000 unit Documented by: Hydralazine HCl (Hydralazine 20 Mg/Ml Inj 1 Ml) 5 mg IVP ONCE PRN PRN Reason: Systolic BP > 140 mmHg Sodium Chloride (Sodium Chloride 0.9%) 1,000 mls @ 75 mls/hr IV .[id number] [facility] Last Admin: 12/07/20 17:17 Dose: 75 mls/hr Documented by: Nitroglycerin/Dextrose (Nitroglycerin Drip) 50 mg in 250 mls @ 0 mls/hr IV .Q0M [facility]; Protocol Last Titration: 12/08/20 17:19 Dose: Infused Documented by: Insulin Human Regular 250 unit (/ Sodium Chloride) 252.5 mls @ 0 mls/hr IV .Q0M [facility]; Protocol Last Titration: 12/08/20 17:19 Dose: Infused Documented by: Propofol (Diprivan) 1,000 mg in 100 mls @ 0 mls/hr IV .Q0M [facility]; Protocol Last Titration: 12/09/20 09:22 Dose: 30 mcg/kg/min, 15.3 mls/hr Documented by: Nitroglycerin/Dextrose (Nitroglycerin Drip) 50 mg in 250 mls @ 0 mls/hr IV .Q0M [facility]; Protocol Albumin Human (Albumin) 12.5 gm in 250 mls @ 600 mls/hr IV PRN PRN PRN Reason: For CVP < 4 or SBP< 90 Last Infusion: 12/08/20 22:30 Dose: Infused Documented by: Insulin Human Regular 250 unit (/ Sodium Chloride) 252.5 mls @ 0 mls/hr IV .Q0M [facility]; Protocol Sodium Nitroprusside 50 mg/ (Dextrose) 252 mls @ 0 mls/hr IV .Q0M [facility]; Protocol Labetalol HCl 300 mg/ Sodium (Chloride) 300 mls @ 30 mls/hr IV .Q10H PRN; Protocol PRN Reason: Systolic BP > 140 mmHg Dopamine HCl/Dextrose (Intropin Drip) 400 mg in 250 mls @ 15.93 mls/hr IV CONT PRN; Protocol PRN Reason: Hypotension Amiodarone HCl 900 mg/Dextrose/ IV Miscellaneous Supplies 518 mls @ 0 mls/hr IV .Q0M RANDY; Protocol Stop: 12/09/20 15:54 Cefuroxime Sodium 1,500 mg/ (Sodium Chloride) 100 mls @ 200 mls/hr IV Q12H [facility]; Protocol Stop: 12/10/20 14:29 Last Infusion: 12/09/20 02:44 Dose: Infused Documented by: Dobutamine HCl/Dextrose (Dobutamine Drip) 500 mg in 250 mls @ 0 mls/hr IV .Q0M PRN; Protocol PRN Reason: Cardiac Output Norepinephrine Bitartrate 4 mg (/ Dextrose) 254 mls @ 10.583 mls/hr IV .Q24H NC N; Protocol PRN Reason: HYPOTENSION Phenylephrine HCl 25 mg/ (Sodium Chloride) 252.5 mls @ 0 mls/hr IV .Q0M PRN; Protocol PRN Reason: HYPOTENSION Last Titration: 12/09/20 01:05 Dose: 0 mcg/min, 0 mls/hr Documented by: Dextrose (D5w) 500 mls @ 100 mls/hr IV ONCE PRN; Protocol PRN Reason: Adult Acute Hypoglycemia Prot Sodium Chloride (Sodium Chloride 0.9%) 1,000 mls @ 75 mls/hr IV .[id number] [facility] Last Admin: 12/09/20 05:28 Dose: 75 mls/hr Documented by: Labetalol HCl (Labetalol 5 Mg/Ml Sdv 20ml) 10 mg IVP Q5M PRN PRN Reason: Systolic BP >140 mmHG Lanolin (Lanolin Oint 7 Gm) 1 applic TOPICAL PRN PRN PRN Reason: DRYNESS Levothyroxine Sodium (Levothyroxine 125 Mcg Tablet) 125 mcg PO QAM [facility] Last Admin: 12/07/20 20:16 Dose: Not Given Documented by: Magnesium Hydroxide (Magnesium Hydroxide 30 Ml Udc) 30 ml PO DAILY PRN PRN Reason: CONSTIPATION Metoprolol Tartrate (Metoprolol Tartrate 25 Mg Tablet) 25 mg PO BID@0900,2100 [facility] Last Admin: 12/07/20 20:15 Dose: 25 mg Documented by: Midazolam HCl (Midazolam 1 Mg/Ml Inj 2 Ml) 1 mg IVP Q1H PRN PRN Reason: Sedation for Montoya score < 4. Last Admin: 12/09/20 02:03 Dose: 1 mg Documented by: Morphine Sulfate (Morphine 4 Mg/Ml Sdv 1 Ml) 2 mg IVP Q1H PRN PRN Reason: BREAKTHROUGH PAIN Last Admin: 12/08/20 21:58 Dose: 2 mg Documented by: Mupirocin (Mupirocin Oint 22 Gm) 1 applic NASAL BID [facility] Last Admin: 12/08/20 05:57 Dose: 1 applic Documented by: Naloxone HCl (Naloxone 0.4 Mg/Ml Sdv) 0.1 mg IVP Q2M PRN PRN Reason: RESPIRATORY RATE < 8/MIN Naloxone HCl (Naloxone 0.4 Mg/Ml Sdv) 0.1 mg IVP Q2M PRN PRN Reason: OPIATERV Nitroglycerin (Nitroglycerin 0.4 Mg Sublingual Tablet) 0.4 mg SUBLINGUAL Q5M PRN PRN Reason: CHEST PAIN Last Admin: 12/05/20 22:41 Dose: 1 tab Documented by: Ondansetron HCl (Ondansetron 2 Mg/Ml Sdv 2 Ml) 4 mg IVP Q8H PRN PRN Reason: vomiting, or N/V if npo Last Admin: 12/08/20 05:51 Dose: 4 mg Documented by: Ondansetron HCl (Ondansetron 2 Mg/Ml Sdv 2 Ml) 4 mg IVP Q6H PRN PRN Reason: NAUSEA Oxycodone/Acetaminophen (Oxycodone-Apap 5-325 Mg Tablet) 1 - 2 tab PO Q6H PRN PRN Reason: MILD TO MODERATE PAIN Last Admin: 12/09/20 02:44 Dose: 2 tab Documented by: Pantoprazole Sodium (Pantoprazole Dr 40 Mg Tablet) 40 mg PO DAILY [facility] Last Admin: 12/07/20 08:51 Dose: 40 mg Documented by: Zolpidem Tartrate (Zolpidem 10 Mg Tablet) 10 mg PO BEDTIME PRN PRN Reason: Sleep Last Admin: 12/07/20 20:15 Dose: 10 mg Documented by: Vitals/I&O/Wt Last Vital Signs Temp 98.9 F 12/09/20 13:00 Pulse 82 12/09/20 19:00 Resp 22 H 12/09/20 19:00 BP 123/61 12/09/20 19:00 Pulse Ox 97 12/09/20 19:00 12/09/20 12/09/20 12/09/20 06:59 14:59 22:59 Intake Total 2113.618 / 4645.361 135.185 / 462.828 2360 / 1825.185 Output Total 519 / 3297 1431 / 1431 810 / 2241 Balance 1594.618 / 1348.361 -1295.815 / -1295.815 880 / -415.815 Weight last 48 hrs Weight 99.972 kg Weight 84.958 kg Physical Exam Const: COMMON NORMALS: patient oriented x3 HENMT: COMMON NORMALS: normocephalic and atraumatic HEAD & SCALP: normocephalic and atraumatic Resp: COMMON NORMALS: clear to auscultation bilaterally AUSCULTATION: clear to auscultation bilaterally Cardio: COMMON NORMALS: regular rate, regular rhythm, S1 normal heart sound present, S2 normal heart sound present, No gallops present (Cardio), No murmurs present (Cardio), No rub (Cardio) and Peripheral pulses 2+ throughout RATE: regular rate RHYTHM: regular rhythm HEART SOUNDS: S1 normal heart sound present and S2 normal heart sound present PERIPHERAL PULSES: Peripheral pulses 2+ throughout GI: COMMON NORMALS: Normal to inspection, nondistended, normoactive bowel sounds present, Soft to palpation, non-tender, No hepatosplenomegaly present and no masses AUSCULTATION: Yes normoactive bowel sounds PALPATION: Yes Soft to palpation and Yes No hepatosplenomegaly present RECTAL EXAM: deferred Extremity: COMMON NORMALS: no clubbing, cyanosis or edema and no pedal edema Neuro: COMMON NORMALS: patient oriented x3 Urinary Catheter Management^: Garcia: Cath Placed During This Visit: yes Reason for Continuing Indwelling Catheter: Accurate Measurement of Urinary Output in Critically Ill Patients Urinary Catheter Date of Insertion: 12/08/20 Urinary Catheter Time of Insertion: 08:18 Data : 12/09/20 12:10 12/09/20 12:10 A&P Assessment and plan (1) Non-ST elevation CT (NSTEMI): -Multivessel CAD -S/P : Coronary artery bypass grafting x3 utilizing in situ left internal mammary artery to the left anterior descending artery, reverse saphenous vein graft aorta to the diagonal artery, reverse saphenous vein graft aorta to the obtuse marginal branch of circumflex artery. -Continue aspirin, statin, beta-kj -On insulin drip later for tight glycemic control (Currently on hold ) -Continue to monitor for chest pain, telemetry monitoring -Continue to monitor in ICU -Full code -Heparin for DVT prophylaxis, SCDs Status: Acute (2) Uncontrolled type 2 diabetes with neuropathy: Usually on insulin and glipizide, seeing Dr Solorio Hemoglobin A1c 10.7 Hold Lantus Insulin sliding scale Status: Chronic (3) Hypothyroid: On levothyroxine, sees Dr Solorio Status: Acute Qualifiers: Hypothyroidism type: acquired Qualified Code(s): E03.9 - Hypothyroidism, unspecified (4) Hyperlipidemia: Not currently on treatment Status: Inactive (5) Fibromyalgia: On hydrocodone and prn baclofen Status: Acute Additional A&P Information GI prophylaxis Continue home pain management as needed medicines Supportive care otherwise Plans discussed with patient and she was given an opportunity to ask questions Full code Attestations Medical Necessity Statement*: Patient needs to be in hospital for the management of Multi vessel CAD s/p CABG Coding Level of Care Code Acute Conference Manager for g Fwd Diagnoses Non-ST elevation CT (NSTEMI) I21.4 Uncontrolled type 2 diabetes with neuropathy E11.40; E11.65 Hypothyroid E03.9 Hypothyroidism type: acquired Hyperlipidemia E78.5 Fibromyalgia M79.7
[2020-12-09] MEDS: atorvastatin 40 mg Tablet 20 MG PO (21:24)
[2020-12-09 23:00] LABS: Glucose Point of Care 176 mg/dL (70-110)
[2020-12-09 23:00] LABS: Glucose Point of Care 152 mg/dL (70-110)
[2020-12-09 23:00] LABS: Glucose Point of Care 152 mg/dL (70-110)
[2020-12-10] VITALS (31 sets, daily range): BP systolic 87–160; BP diastolic 59–78; PULSE 79–100; RESP 13–31; TEMP 36.7–38.3; O2SAT 93–100
[2020-12-10] MEDS: fentaNYL 50 mcg/mL INJ 2mL IVP ×3 (02:17→20:05)
[2020-12-10] MEDS: oxyCODONE-APAP 5-325 mg Tablet PO ×4 (04:01→23:50)
[2020-12-10] MEDS: ALPRAZolam 0.25 mg Tablet PO (04:02)
[2020-12-10 04:51] LABS: Glucose Point of Care 125 mg/dL (70-110)
[2020-12-10 04:51] LABS: Glucose Point of Care 104 mg/dL (70-110)
[2020-12-10 04:51] LABS: Glucose Point of Care 99 mg/dL (70-110)
[2020-12-10 04:51] LABS: Glucose Point of Care 90 mg/dL (70-110)
[2020-12-10 05:09] LABS: Basophils % 0.3 %; Eosinophils % 0.2 %; Hematocrit 30.8 % (37.0-47.0); Hemoglobin 9.9 g/dL (11.5-15.3); Lymphocytes # 1.6 10^3/uL (0.8-4.8); Lymphocytes % 10.1 %; Mean Corpuscular HGB Conc 32.1 g/dL (30.0-36.0); Mean Corpuscular Hemoglobin 29.9 pg (28.0-34.0); Mean Corpuscular Volume 93.1 fL (81-99); Mean Platelet Volume 10.3 fL (7.4-10.4); Monocytes # 1.7 10^3/uL (0.2-0.9); Monocytes % 11.1 %; Neutrophils # 11.92 10^3/uL (1.8-7.7); Neutrophils % 77.6 %; Nucleated Red Blood Cells % 0 %; Platelet Count 162 10^3/cmm (130-400); Red Blood Count 3.31 10^6/uL (4.1-5.3); White Blood Count 15.4 10^3/uL (4.0-10.0)
[2020-12-10 05:27] LABS: Glucose Point of Care 111 mg/dL (70-110)
[2020-12-10 05:28] LABS: Alanine Aminotransferase 42 U/L (0-33); Albumin Level 2.9 g/dL (3.5-5.2); Alkaline Phosphatase 114 IU/L (35-105); Anion Gap 11.8 (5-19); Aspartate Amino Transferase 57 U/L (0-32); Blood Urea Nitrogen 14 mg/dL (8-23); Calcium 8.6 mg/dL (8.5-10.5); Carbon Dioxide 24 mmol/L (22-29); Chloride 106 mmol/L (98-107); Globulin 2.2 g/dL (1.3-4.6); Glomerular Filtration Rate 158.3 mL/min (90-130); Glucose 101 mg/dL (65-115); Osmolality Calculated 287 mOsm/kg (285-295); Potassium 3.8 mmol/L (3.5-5.1); Sodium 138 mmol/L (136-145); Total Bilirubin 1.1 mg/dL (0.15-1.2); Total Protein 5.1 g/dL (6.6-8.7)
--- NOTE | 2020-12-10 06:00 | XR_ITS ---
WS: [id number] Portable AP upright chest, 12/10/2020 Clinical Data: Postop day #2 status post CABG Comparison: Portable chest, 12/09/2020 Findings: The endotracheal tube and nasogastric tube have been removed. The patient has developed manuel ateral pleural effusions and lower lobe atelectasis. [place]-Kaleb catheter has been removed. The right i nternal jugular venous catheter, mediastinal tubes and [place]-Kaleb catheter sheath remain in position. Left chest tube has not changed. The heart size is normal. Monitor leads are on the chest wall. Midli ne sternotomy sutures are seen. XR/XR chest 1V portable [id number] Impression: 1. Removal of endotracheal tube and nasogastric tube. 2. Development of bilateral pleural effusions and bilateral lower lobe atelecta sis. 3. No change in [place]-Kaleb catheter sheath, right internal jugular venous cathet er, left chest tube and mediastinal tubes.
[2020-12-10] MEDS: HYDROmorphone 1 mg/mL INJ 1 mL 0.5 MG IVP ×2 (06:29→14:18)
[2020-12-10 06:51] LABS: Glucose Point of Care 103 mg/dL (70-110)
[2020-12-10 06:51] LABS: Glucose Point of Care 89 mg/dL (70-110)
--- NOTE | 2020-12-10 06:57 | PM.PN ---
Subjective Subjective: Interval history: Stop date over 2 status post CABG x3. Up in chair on rounds. Sternotomy discomfort under better control. Intake and output is about even though overall she appears to be volume up. Chest x-ray which shows probable developing right pleural effusion and decreased overall lung volumes consistent with only modest inspiratory effort. Cardiac silhouette is stable. Has been reviewed. There is still peripheral edema. Distal output continues to decrease though was about 500 cc yesterday. Vitals/I&O/Wt Last Vital Signs Temp 99.1 F 12/10/20 05:33 Pulse 89 12/10/20 06:00 Resp 24 H 12/10/20 04:01 BP 128/76 12/10/20 04:00 Pulse Ox 94 12/10/20 04:01 12/09/20 12/09/20 12/10/20 14:59 22:59 06:59 Intake Total 135.185 / 421.579 6433.625 / 2140.810 240 / 2380.810 Output Total 1431 / 1431 810 / 2241 500 / 2741 Balance -1295.815 / -5408.386 2263.625 / -100.190 -260 / -360.190 Weight last 48 hrs Weight 220 lb 6.4 oz Physical Exam Const: COMMON NORMALS: patient oriented x3 Chest: COMMONS NORMALS: normal inspection of the chest (Surgical dressings in place. Support tubes in position. Chest wall stable) Resp: COMMON NORMALS: negative for normal respiratory effort (Less than ideal respiratory effort pulling only 500 cc on incentive spirome) and negative for clear to auscultation bilaterally (Bibasilar crackles and decreased breath sounds) AUSCULTATION: not clear to auscultation bilaterally (Bibasilar crackles and decreased breath sounds) Cardio: COMMON NORMALS: regular rate, regular rhythm and S1 normal heart sound present RATE: regular rate RHYTHM: regular rhythm HEART SOUNDS: S1 normal heart sound present Extremity: OTHER: Peripheral edema maintained Neuro: COMMON NORMALS: patient oriented x3, no focal motor deficits and no sensory deficits noted Urinary Catheter Management^: Garcia: Cath Placed During This Visit: yes Reason for Continuing Indwelling Catheter: Accurate Measurement of Urinary Output in Critically Ill Patients Urinary Catheter Date of Insertion: 12/08/20 Urinary Catheter Time of Insertion: 08:18 Data : 12/10/20 04:40 12/10/20 04:40 A&P Assessment and plan (1) Status post aorto-coronary artery bypass graft: Postop day #2 status post CABG x3. Overall volume expansion. Only modest inspiratory effort. Mild hypokalemia. Plan: DC Cordis. Transition IV insulin to sliding scale. CBC, BMP, chest x-ray in a.m. Lasix 12 mg IV now. KCl 40 mEq IV piggyback now. Continue ambulation and focus on respiratory effort. Leave chest tubes in for now. At least another 24 hours. Status: Acute Attestations Medical Necessity Statement*: Postop day #2 status post CABG x3 Time Spent in Patient Care: 16 - 35 minutes Coding Level of Care Code Acute Electric Crane Operator for Chg Fwd Diagnoses Status post aorto-coronary artery bypass graft Z95.1
[2020-12-10] MEDS: ondansetron 2 mg/ML SDV 2 mL 4 MG IVP ×2 (08:31→17:13)
[2020-12-10] MEDS: FUROsemide 10 mg/mL SDV 2mL 20 MG IVP (08:57)
[2020-12-10] MEDS: metoprolol tartrate 25 mg Tablet 12.5 MG PO (08:57)
[2020-12-10] MEDS: potassium chloride premix 100 ML 25 MEQ IV (08:59)
[2020-12-10] MEDS: chlorhexidine gluconate 0.12% Btl 473 mL 15 ML MUCOUS MEM (09:03)
[2020-12-10] MEDS: aspirin 81 mg Chew Tablet PO (09:03)
--- NOTE | 2020-12-10 09:39 | PC.CHAP ---
Pastoral Care Encounter/Spiritual Assessment Type of Contact [] Declined sack repairer visit [] Patient/Family/Request visit [] Outpatient visit [] Follow-up visit [] Physician referral [] Code/Alert [] Routine visit [] Staff referral [] Actively dying [] Patient sleeping [] Family support [] [] Out of room [] Palliative care [] [] Receiving care in room [] Pre-surgical visit [] Trauma [] Long length of stay [x] ICU visit [] Other: Relational/Emotional Strength [] Patient feels connected with others/family/visitors/staff [] Distress [] Loneliness/isolation [] Abandonment Spirituality of Patient [] Person of Vilma [] Attends Rastafari of their Vilma [] Believes in Prayer [] Reads Bible or Mormon materials [] There are Spiritual issues to be addressed Outside Maintenance Worker Interventions [x] Prayer [] Active listening [] Non-anxious presence [] Spiritual/emotional support [] Crisis/trauma care [] Spiritual counseling [] Bereavement support [] Provided bereavement packet [] Provided Bible/devotional materials [] Provided toy/stuffed animal, coloring book to patient or family member [] Provided Communion [] Anointing/[place] [] Salvation [x] Completed spiritual assessment [] Other: Impact on Illness or Injury [] Angry [] Fearful [] Anxious [] Often cries [] Exhaustion [] Unable to work [] Unable to attend yarsanism [] Unable to walk/stand [] Unable to read [] Unable to drive [] Unable to eat/drink [] Unable to sleep [] Unable to be with family [] Patient intubated [] Other: Summary Time spent with patient
--- NOTE | 2020-12-10 10:41 | P.PN_ITS ---
Subjective Subjective: Interval history: Post Op DAY 2: Overall patient is doing better.She has remained afebrile, continue to saturate well on 4 ls oxygen via [place], B/P and H/R is well controlled. Her other vitals and labs have been reviewed. Medications: Reviewed: Yes Medication Review Details: Current Medications Acetaminophen (Acetaminophen 325 Mg Tablet) 650 mg PO Q6H PRN PRN Reason: Mild/Mod Pain Or Temp >/= 101 Last Admin: 12/06/20 05:30 Dose: 650 mg Documented by: Acetaminophen (Acetaminophen 325 Mg Tablet) 650 mg PO Q6H PRN PRN Reason: MILD PAIN Hydrocodone Bitart/Acetaminophen (Hydrocodone-Acetaminophen 10-325 Mg Tablet) 1 tab PO Q6H PRN PRN Reason: Pain Last Admin: 12/07/20 23:20 Dose: 1 tab Documented by: Alprazolam (Alprazolam 0.25 Mg Tablet) 0.25 mg PO TID PRN PRN Reason: ANXIETY Last Admin: 12/07/20 22:19 Dose: 0.25 mg Documented by: Aspirin (Aspirin 325 Mg Ec Tablet) 325 mg PO DAILY [facility] Last Admin: 12/07/20 08:51 Dose: 325 mg Documented by: Aspirin (Aspirin 81 Mg Chew Tablet) 81 mg PO DAILY [facility] Last Admin: 12/09/20 08:33 Dose: 81 mg Documented by: Atorvastatin Calcium (Atorvastatin 40 Mg Tablet) 40 mg PO BEDTIME [facility] Last Admin: 12/07/20 20:15 Dose: 40 mg Documented by: Atorvastatin Calcium (Atorvastatin 40 Mg Tablet) 20 mg PO BEDTIME [facility] Atropine Sulfate (Atropine 1 Mg/Ml Sdv 1 Ml) 0.5 mg IVP PRN PRN PRN Reason: Symptomatic bradycardia Baclofen (Baclofen 10 Mg Tablet) 10 mg PO BID PRN PRN Reason: Muscle Spasm Last Admin: 12/07/20 08:52 Dose: 10 mg Documented by: Chlorhexidine Gluconate (Chlorhexidine Gluconate 0.12% Btl 473 Ml) 15 ml MUCOUS MEM BID [facility] Last Admin: 12/07/20 17:17 Dose: 1 applic Documented by: Chlorhexidine Gluconate (Chlorhexidine Gluconate 4% Btl 118 Ml) 1 applic TOPICAL DAILY [facility] Last Admin: 12/07/20 17:18 Dose: 1 applic Documented by: Chlorhexidine Gluconate (Chlorhexidine Gluconate 0.12% Btl 473 Ml) 15 ml MUCOUS MEM BID RANDY Last Admin: 12/09/20 08:34 Dose: 1 applic Documented by: Dextrose (Dextrose 50% Syringe 50 Ml) 50 ml IVP PRN PRN; Protocol PRN Reason: hypoglycemia protocol Dextrose (Dextrose 50% Syringe 50 Ml) 25 ml IVP ONCE PRN; Protocol PRN Reason: hypoglycemia protocol Epinephrine (Racepinephrine 0.5 Ml Neb) 0.5 ml INHALATION Q6H.RESPIRATORY PRN PRN Reason: Stridor Fentanyl (Fentanyl 50 Mcg/Ml Inj 2ml) 50 mcg IVP Q1H PRN PRN Reason: SEVERE PAIN Last Admin: 12/09/20 07:38 Dose: 50 mcg Documented by: Glucagon (Glucagon 1 Mg/Ml Inj 1 Ml) 1 mg IM ONCE PRN; Protocol PRN Reason: Adult Acute Hypoglycemia Prot. Glucagon (Glucagon 1 Mg/Ml Inj 1 Ml) 1 mg IM ONCE PRN; Protocol PRN Reason: Adult Acute Hypoglycemia Prot Heparin Sodium (Beef Lung) (Heparin 5,000 Unit/Ml Inj 1 Ml) 0 unit IV PRN PRN; Protocol PRN Reason: Heparin weight-base protocol Last Admin: 12/07/20 10:35 Dose: 42,000 unit Documented by: Hydralazine HCl (Hydralazine 20 Mg/Ml Inj 1 Ml) 5 mg IVP ONCE PRN PRN Reason: Systolic BP > 140 mmHg Sodium Chloride (Sodium Chloride 0.9%) 1,000 mls @ 75 mls/hr IV .[id number] RANDY Last Admin: 12/07/20 17:17 Dose: 75 mls/hr Documented by: Nitroglycerin/Dextrose (Nitroglycerin Drip) 50 mg in 250 mls @ 0 mls/hr IV .Q0M RANDY; Protocol Last Titration: 12/08/20 17:19 Dose: Infused Documented by: Insulin Human Regular 250 unit (/ Sodium Chloride) 252.5 mls @ 0 mls/hr IV .Q0M RANDY; Protocol Last Titration: 12/08/20 17:19 Dose: Infused Documented by: Propofol (Diprivan) 1,000 mg in 100 mls @ 0 mls/hr IV .Q0M RANDY; Protocol Last Titration: 12/09/20 09:22 Dose: 30 mcg/kg/min, 15.3 mls/hr Documented by: Nitroglycerin/Dextrose (Nitroglycerin Drip) 50 mg in 250 mls @ 0 mls/hr IV .Q0M RANDY; Protocol Albumin Human (Albumin) 12.5 gm in 250 mls @ 600 mls/hr IV PRN PRN PRN Reason: For CVP < 4 or SBP< 90 Last Infusion: 12/08/20 22:30 Dose: Infused Documented by: Insulin Human Regular 250 unit (/ Sodium Chloride) 252.5 mls @ 0 mls/hr IV .Q0M RANDY; Protocol Sodium Nitroprusside 50 mg/ (Dextrose) 252 mls @ 0 mls/hr IV .Q0M RANDY; Protocol Labetalol HCl 300 mg/ Sodium (Chloride) 300 mls @ 30 mls/hr IV .Q10H PRN; Protocol PRN Reason: Systolic BP > 140 mmHg Dopamine HCl/Dextrose (Intropin Drip) 400 mg in 250 mls @ 15.93 mls/hr IV CONT PRN; Protocol PRN Reason: Hypotension Amiodarone HCl 900 mg/Dextrose/ IV Miscellaneous Supplies 518 mls @ 0 mls/hr IV .Q0M RANDY; Protocol Stop: 12/09/20 15:54 Cefuroxime Sodium 1,500 mg/ (Sodium Chloride) 100 mls @ 200 mls/hr IV Q12H RANDY; Protocol Stop: 12/10/20 14:29 Last Infusion: 12/09/20 02:44 Dose: Infused Documented by: Dobutamine HCl/Dextrose (Dobutamine Drip) 500 mg in 250 mls @ 0 mls/hr IV .Q0M PRN; Protocol PRN Reason: Cardiac Output Norepinephrine Bitartrate 4 mg (/ Dextrose) 254 mls @ 10.583 mls/hr IV .Q24H PRN; Protocol PRN Reason: HYPOTENSION Phenylephrine HCl 25 mg/ (Sodium Chloride) 252.5 mls @ 0 mls/hr IV .Q0M PRN; Protocol PRN Reason: HYPOTENSION Last Titration: 12/09/20 01:05 Dose: 0 mcg/min, 0 mls/hr Documented by: Dextrose (D5w) 500 mls @ 100 mls/hr IV ONCE PRN; Protocol PRN Reason: Adult Acute Hypoglycemia Prot Sodium Chloride (Sodium Chloride 0.9%) 1,000 mls @ 75 mls/hr IV .[id number] [facility] Last Admin: 12/09/20 05:28 Dose: 75 mls/hr Documented by: Labetalol HCl (Labetalol 5 Mg/Ml Sdv 20ml) 10 mg IVP Q5M PRN PRN Reason: Systolic BP >140 mmHG Lanolin (Lanolin Oint 7 Gm) 1 applic TOPICAL PRN PRN PRN Reason: DRYNESS Levothyroxine Sodium (Levothyroxine 125 Mcg Tablet) 125 mcg PO QAM [facility] Last Admin: 12/07/20 20:16 Dose: Not Given Documented by: Magnesium Hydroxide (Magnesium Hydroxide 30 Ml Udc) 30 ml PO DAILY PRN PRN Reason: CONSTIPATION Metoprolol Tartrate (Metoprolol Tartrate 25 Mg Tablet) 25 mg PO BID@0900,2100 [facility] Last Admin: 12/07/20 20:15 Dose: 25 mg Documented by: Midazolam HCl (Midazolam 1 Mg/Ml Inj 2 Ml) 1 mg IVP Q1H PRN PRN Reason: Sedation for Montoya score < 4. Last Admin: 12/09/20 02:03 Dose: 1 mg Documented by: Morphine Sulfate (Morphine 4 Mg/Ml Sdv 1 Ml) 2 mg IVP Q1H PRN PRN Reason: BREAKTHROUGH PAIN Last Admin: 12/08/20 21:58 Dose: 2 mg Documented by: Mupirocin (Mupirocin Oint 22 Gm) 1 applic NASAL BID [facility] Last Admin: 12/08/20 05:57 Dose: 1 applic Documented by: Naloxone HCl (Naloxone 0.4 Mg/Ml Sdv) 0.1 mg IVP Q2M PRN PRN Reason: RESPIRATORY RATE < 8/MIN Naloxone HCl (Naloxone 0.4 Mg/Ml Sdv) 0.1 mg IVP Q2M PRN PRN Reason: OPIATERV Nitroglycerin (Nitroglycerin 0.4 Mg Sublingual Tablet) 0.4 mg SUBLINGUAL Q5M PRN PRN Reason: CHEST PAIN Last Admin: 12/05/20 22:41 Dose: 1 tab Documented by: Ondansetron HCl (Ondansetron 2 Mg/Ml Sdv 2 Ml) 4 mg IVP Q8H PRN PRN Reason: vomiting, or N/V if npo Last Admin: 12/08/20 05:51 Dose: 4 mg Documented by: Ondansetron HCl (Ondansetron 2 Mg/Ml Sdv 2 Ml) 4 mg IVP Q6H PRN PRN Reason: NAUSEA Oxycodone/Acetaminophen (Oxycodone-Apap 5-325 Mg Tablet) 1 - 2 tab PO Q6H PRN PRN Reason: MILD TO MODERATE PAIN Last Admin: 12/09/20 02:44 Dose: 2 tab Documented by: Pantoprazole Sodium (Pantoprazole Dr 40 Mg Tablet) 40 mg PO DAILY [facility] Last Admin: 12/07/20 08:51 Dose: 40 mg Documented by: Zolpidem Tartrate (Zolpidem 10 Mg Tablet) 10 mg PO BEDTIME PRN PRN Reason: Sleep Last Admin: 12/07/20 20:15 Dose: 10 mg Documented by: Vitals/I&O/Wt Last Vital Signs Temp 98.4 F 12/10/20 08:00 Pulse 79 12/10/20 10:00 Resp 17 12/10/20 10:00 BP 125/78 12/10/20 10:00 Pulse Ox 98 12/10/20 10:00 12/09/20 12/10/20 12/10/20 22:59 06:59 14:59 Intake Total 2005.625 / 2140.810 240 / 2380.810 783.333 / 783.333 Output Total 810 / 2241 500 / 2741 Balance 1195.625 / -100.190 -260 / -360.190 783.333 / 783.333 Weight last 48 hrs Weight 99.972 kg Physical Exam Const: COMMON NORMALS: patient oriented x3 HENMT: COMMON NORMALS: normocephalic and atraumatic HEAD & SCALP: normocephalic and atraumatic Chest: COMMONS NORMALS: normal inspection of the chest CHEST: Yes Symmetrical chest wall rise OTHER: Surgical dressings in place.Support tubes in position. Resp: EFFORT & INSPECTION: Yes symmetric chest movement OTHER: B/L Basal Crackles Present,diminished breath sounds ant bases rt>lt Cardio: COMMON NORMALS: regular rate, regular rhythm, S1 normal heart sound present, S2 normal heart sound present, No gallops present (Cardio), No murmurs present (Cardio), No rub (Cardio) and Peripheral pulses 2+ throughout RATE: regular rate RHYTHM: regular rhythm HEART SOUNDS: S1 normal heart sound present and S2 normal heart sound present PERIPHERAL PULSES: Peripheral pulses 2+ throughout GI: COMMON NORMALS: Normal to inspection, nondistended, normoactive bowel sounds present, Soft to palpation, non-tender, No hepatosplenomegaly present and no masses AUSCULTATION: Yes normoactive bowel sounds PALPATION: Yes Soft to palpation and Yes No hepatosplenomegaly present RECTAL EXAM: deferred Neuro: COMMON NORMALS: patient oriented x3 Urinary Catheter Management^: Garcia: Cath Placed During This Visit: yes Reason for Continuing Indwelling Catheter: Accurate Measurement of Urinary Output in Critically Ill Patients Urinary Catheter Date of Insertion: 12/08/20 Urinary Catheter Time of Insertion: 08:18 Data : 12/10/20 04:40 12/10/20 04:40 A&P Assessment and plan (1) Non-ST elevation SC (NSTEMI): -Multivessel CAD -S/P : Coronary artery bypass grafting x3 utilizing in situ left internal mammary artery to the left anterior descending artery, reverse saphenous vein graft aorta to the diagonal artery, reverse saphenous vein graft aorta to the obtuse marginal branch of circumflex artery. -Continue aspirin, statin, beta-kj -On insulin drip later for tight glycemic control (Currently on hold ) -Continue to monitor for chest pain, telemetry monitoring -Continue to monitor in ICU -Full code -Heparin for DVT prophylaxis, SCDs Status: Acute (2) Leukocytosis: WBC has trended up : to 15T FROM 10.2 .Likely reactive. Xray chest : Development of bilateral pleural effusions and bilateral lower lobe atelectasis. Blood Culture, urine culture , lactic acid, procal Will empirically cover with Van and Zosyn Status: Acute (3) UTI (urinary tract infection): Follow urine culture Continue Abx as above Status: Acute (4) Transaminitis: Will monitor LFT Hepatitis panel HIV Status: Acute (5) Uncontrolled type 2 diabetes with neuropathy: Usually on insulin and glipizide, seeing Dr Solorio Hemoglobin A1c 10.7 Hold Lantus Insulin sliding scale Status: Chronic (6) Hypothyroid: On levothyroxine, sees Dr Solorio Status: Acute Qualifiers: Hypothyroidism type: acquired Qualified Code(s): E03.9 - Hypothyroidism, unspecified (7) Hyperlipidemia: Not currently on treatment Status: Inactive (8) Fibromyalgia: On hydrocodone and prn baclofen Status: Acute Additional A&P Information GI prophylaxis Continue home pain management as needed medicines Supportive care otherwise Plans discussed with patient and she was given an opportunity to ask questions Full code Attestations Medical Necessity Statement*: Patient needs to be in hospital for the management of Multivessel CAD S/P CABG Coding Level of Care Code Acute Manager Urgent Care for g Fwd Exam Detailed Diagnoses Non-ST elevation SC (NSTEMI) I21.4 Leukocytosis D72.829 UTI (urinary tract infection) N39.0 Transaminitis R74.01 Uncontrolled type 2 diabetes with neuropathy E11.40; E11.65 Hypothyroid E03.9 Hypothyroidism type: acquired Hyperlipidemia E78.5 Fibromyalgia M79.7
[2020-12-10 13:27] LABS: Glucose Point of Care 225 mg/dL (70-110)
[2020-12-10 13:27] LABS: Glucose Point of Care 161 mg/dL (70-110)
[2020-12-10] MEDS: sodium chloride 0.9% 1,000 ML 75 ML IV (14:18)
[2020-12-10] MEDS: vancomycin 1,250 MG/250 ML PIGGYBACK 200 MG IV (17:13)
[2020-12-10 18:40] LABS: Glucose Point of Care 204 mg/dL (70-110)
[2020-12-10] MEDS: piperacillin-tazobactam 3.375 GM in sodium chloride 0.9% (plus) 50 ML IV (18:47)
--- NOTE | 2020-12-10 19:17 | PC.NURSE ---
Report given to KARISSA White.
--- NOTE | 2020-12-10 19:17 | PC.NURSE ---
Shift summary: Pt has been out of bed with each meal. She has ambulated 3 times today. Afebrile. NO ectopy noted on monitor. Chest tubes: Mediastinal 130ml and Pleural 100ml output. She does complain of pain frequently but states it is more chronic in nature, ( like her fibromyalgia). She has received Oxycodone twice and IV pain med twice. Her WBC elevated, Blood cultures a nd urine cultures repeated. Vancomycin started. 1400ml pale yellow urine output noted.
[2020-12-10] MEDS: atorvastatin 40 mg Tablet 20 MG PO (20:04)
--- NOTE | 2020-12-10 21:15 | P.PN_ITS ---
Subjective Subjective: Interval history: Patient is feeling better. She is ambulating on telemetry. Her vital signs are stable. Afebrile. No unusual shortness of breath. Medications: Reviewed: Yes Medication Review Details: Current Medications Acetaminophen (Acetaminophen 325 Mg Tablet) 650 mg PO Q6H PRN PRN Reason: Mild/Mod Pain Or Temp >/= 101 Last Admin: 12/06/20 05:30 Dose: 650 mg Documented by: Acetaminophen (Acetaminophen 325 Mg Tablet) 650 mg PO Q6H PRN PRN Reason: MILD PAIN Hydrocodone Bitart/Acetaminophen (Hydrocodone-Acetaminophen 10-325 Mg Tablet) 1 tab PO Q6H PRN PRN Reason: Pain Last Admin: 12/07/20 23:20 Dose: 1 tab Documented by: Alprazolam (Alprazolam 0.25 Mg Tablet) 0.25 mg PO TID PRN PRN Reason: ANXIETY Last Admin: 12/10/20 04:02 Dose: 0.25 mg Documented by: Aspirin (Aspirin 325 Mg Ec Tablet) 325 mg PO DAILY [facility] Last Admin: 12/07/20 08:51 Dose: 325 mg Documented by: Aspirin (Aspirin 81 Mg Chew Tablet) 81 mg PO DAILY [facility] Last Admin: 12/10/20 09:03 Dose: 81 mg Documented by: Atorvastatin Calcium (Atorvastatin 40 Mg Tablet) 40 mg PO BEDTIME [facility] Last Admin: 12/07/20 20:15 Dose: 40 mg Documented by: Atorvastatin Calcium (Atorvastatin 40 Mg Tablet) 20 mg PO BEDTIME [facility] Last Admin: 12/10/20 20:04 Dose: 20 mg Documented by: Atropine Sulfate (Atropine 1 Mg/Ml Sdv 1 Ml) 0.5 mg IVP PRN PRN PRN Reason: Symptomatic bradycardia Baclofen (Baclofen 10 Mg Tablet) 10 mg PO BID PRN PRN Reason: Muscle Spasm Last Admin: 12/07/20 08:52 Dose: 10 mg Documented by: Chlorhexidine Gluconate (Chlorhexidine Gluconate 0.12% Btl 473 Ml) 15 ml MUCOUS MEM BID [facility] Last Admin: 12/07/20 17:17 Dose: 1 applic Documented by: Chlorhexidine Gluconate (Chlorhexidine Gluconate 4% Btl 118 Ml) 1 applic TOPICAL DAILY [facility] Last Admin: 12/07/20 17:18 Dose: 1 applic Documented by: Chlorhexidine Gluconate (Chlorhexidine Gluconate 0.12% Btl 473 Ml) 15 ml MUCOUS MEM BID [facility] Last Admin: 12/10/20 18:48 Dose: Not Given Documented by: Dextrose (Dextrose 50% Syringe 50 Ml) 50 ml IVP PRN PRN; Protocol PRN Reason: hypoglycemia protocol Dextrose (Dextrose 50% Syringe 50 Ml) 25 ml IVP ONCE PRN; Protocol PRN Reason: hypoglycemia protocol Dextrose (Dextrose 50% Syringe 50 Ml) 25 ml IVP ONCE PRN; Protocol PRN Reason: hypoglycemia protocol Dextrose (Dextrose 50% Syringe 50 Ml) 50 ml IVP PRN PRN; Protocol PRN Reason: hypoglycemia protocol Epinephrine (Racepinephrine 0.5 Ml Neb) 0.5 ml INHALATION Q6H.RESPIRATORY PRN PRN Reason: Stridor Fentanyl (Fentanyl 50 Mcg/Ml Inj 2ml) 50 mcg IVP Q1H PRN PRN Reason: SEVERE PAIN Last Admin: 12/10/20 20:05 Dose: 50 mcg Documented by: Glucagon (Glucagon 1 Mg/Ml Inj 1 Ml) 1 mg IM ONCE PRN; Protocol PRN Reason: Adult Acute Hypoglycemia Prot. Glucagon (Glucagon 1 Mg/Ml Inj 1 Ml) 1 mg IM ONCE PRN; Protocol PRN Reason: Adult Acute Hypoglycemia Prot Glucagon (Glucagon 1 Mg/Ml Inj 1 Ml) 1 mg IM ONCE PRN; Protocol PRN Reason: Adult Acute Hypoglycemia Prot. Heparin Sodium (Beef Lung) (Heparin 5,000 Unit/Ml Inj 1 Ml) 0 unit IV PRN PRN; Protocol PRN Reason: Heparin weight-base protocol Last Admin: 12/07/20 10:35 Dose: 42,000 unit Documented by: Hydralazine HCl (Hydralazine 20 Mg/Ml Inj 1 Ml) 5 mg IVP ONCE PRN PRN Reason: Systolic BP > 140 mmHg Hydromorphone HCl (Hydromorphone 1 Mg/Ml Inj 1 Ml) 0.5 mg IVP Q3H PRN PRN Reason: PAIN Last Admin: 12/10/20 14:18 Dose: 0.5 mg Documented by: Sodium Chloride (Sodium Chloride 0.9%) 1,000 mls @ 75 mls/hr IV .[id number] [facility] Last Admin: 12/07/20 17:17 Dose: 75 mls/hr Documented by: Nitroglycerin/Dextrose (Nitroglycerin Drip) 50 mg in 250 mls @ 0 mls/hr IV .Q0M [facility]; Protocol Last Titration: 12/08/20 17:19 Dose: Infused Documented by: Insulin Human Regular 250 unit (/ Sodium Chloride) 252.5 mls @ 0 mls/hr IV .Q0M [facility]; Protocol Last Titration: 12/08/20 17:19 Dose: Infused Documented by: Propofol (Diprivan) 1,000 mg in 100 mls @ 0 mls/hr IV .Q0M [facility]; Protocol Last Titration: 12/09/20 09:39 Dose: 15 mcg/kg/min, 7.6 mls/hr Documented by: Nitroglycerin/Dextrose (Nitroglycerin Drip) 50 mg in 250 mls @ 0 mls/hr IV .Q0M [facility]; Protocol Last Titration: 12/10/20 02:07 Dose: Infused Documented by: Albumin Human (Albumin) 12.5 gm in 250 mls @ 600 mls/hr IV PRN PRN PRN Reason: For CVP < 4 or SBP< 90 Last Infusion: 12/08/20 22:30 Dose: Infused Documented by: Sodium Nitroprusside 50 mg/ (Dextrose) 252 mls @ 0 mls/hr IV .Q0M [facility]; Protocol Labetalol HCl 300 mg/ Sodium (Chloride) 300 mls @ 30 mls/hr IV .Q10H PRN; Protocol PRN Reason: Systolic BP > 140 mmHg Dopamine HCl/Dextrose (Intropin Drip) 400 mg in 250 mls @ 15.93 mls/hr IV CONT PRN; Protocol PRN Reason: Hypotension Dobutamine HCl/Dextrose (Dobutamine Drip) 500 mg in 250 mls @ 0 mls/hr IV .Q0M PRN; Protocol PRN Reason: Cardiac Output Norepinephrine Bitartrate 4 mg (/ Dextrose) 254 mls @ 10.583 mls/hr IV .Q24H PRN; Protocol PRN Reason: HYPOTENSION Phenylephrine HCl 25 mg/ (Sodium Chloride) 252.5 mls @ 0 mls/hr IV .Q0M PRN; Protocol PRN Reason: HYPOTENSION Last Titration: 12/10/20 09:43 Dose: Infused Documented by: Dextrose (D5w) 500 mls @ 100 mls/hr IV ONCE PRN; Protocol PRN Reason: Adult Acute Hypoglycemia Prot Sodium Chloride (Sodium Chloride 0.9%) 1,000 mls @ 75 mls/hr IV .[id number] [facility] Last Admin: 12/10/20 14:18 Dose: 75 mls/hr Documented by: Dextrose (D5w) 500 mls @ 100 mls/hr IV ONCE PRN; Protocol PRN Reason: Adult Acute Hypoglycemia Prot Piperacillin Sod/Tazobactam (Sod 3.375 gm/ Sodium Chloride) 50 mls @ 12.5 mls/hr IV Q8H [facility]; Protocol Last Admin: 12/10/20 18:47 Dose: 12.5 mls/hr Documented by: Vancomycin/PEG/NADA/Lysine/Water (Vancocin) 1,250 mg in 250 mls @ 200 mls/hr IV Q8H [facility] Last Admin: 12/10/20 17:13 Dose: 200 mls/hr Documented by: Insulin Aspart (Insulin Aspart 100 Unit/1 Ml) 0 unit SUBCUT WM&BEDTIME [facility]; Protocol Last Admin: 12/10/20 20:04 Dose: 8 unit Documented by: Labetalol HCl (Labetalol 5 Mg/Ml Sdv 20ml) 10 mg IVP Q5M PRN PRN Reason: Systolic BP >140 mmHG Lanolin (Lanolin Oint 7 Gm) 1 applic TOPICAL PRN PRN PRN Reason: DRYNESS Lanolin (Lanolin Oint 7 Gm) 1 applic TOPICAL PRN PRN PRN Reason: DRYNESS Levothyroxine Sodium (Levothyroxine 125 Mcg Tablet) 125 mcg PO QAM [facility] Last Admin: 12/07/20 20:16 Dose: Not Given Documented by: Magnesium Hydroxide (Magnesium Hydroxide 30 Ml Udc) 30 ml PO DAILY PRN PRN Reason: CONSTIPATION Metoprolol Tartrate (Metoprolol Tartrate 25 Mg Tablet) 25 mg PO BID@0900,2100 [facility] Last Admin: 12/07/20 20:15 Dose: 25 mg Documented by: Midazolam HCl (Midazolam 1 Mg/Ml Inj 2 Ml) 1 mg IVP Q1H PRN PRN Reason: Sedation for Montoya score < 4. Last Admin: 12/09/20 02:03 Dose: 1 mg Documented by: Mupirocin (Mupirocin Oint 22 Gm) 1 applic NASAL BID [facility] Last Admin: 12/08/20 05:57 Dose: 1 applic Documented by: Naloxone HCl (Naloxone 0.4 Mg/Ml Sdv) 0.1 mg IVP Q2M PRN PRN Reason: RESPIRATORY RATE < 8/MIN Naloxone HCl (Naloxone 0.4 Mg/Ml Sdv) 0.1 mg IVP Q2M PRN PRN Reason: OPIATERV Nitroglycerin (Nitroglycerin 0.4 Mg Sublingual Tablet) 0.4 mg SUBLINGUAL Q5M PRN PRN Reason: CHEST PAIN Last Admin: 12/05/20 22:41 Dose: 1 tab Documented by: Ondansetron HCl (Ondansetron 2 Mg/Ml Sdv 2 Ml) 4 mg IVP Q8H PRN PRN Reason: vomiting, or N/V if npo Last Admin: 12/08/20 05:51 Dose: 4 mg Documented by: Ondansetron HCl (Ondansetron 2 Mg/Ml Sdv 2 Ml) 4 mg IVP Q6H PRN PRN Reason: NAUSEA Last Admin: 12/10/20 17:13 Dose: 4 mg Documented by: Oxycodone/Acetaminophen (Oxycodone-Apap 5-325 Mg Tablet) 1 - 2 tab PO Q6H PRN PRN Reason: MILD TO MODERATE PAIN Last Admin: 12/10/20 17:42 Dose: 2 tab Documented by: Pantoprazole Sodium (Pantoprazole Dr 40 Mg Tablet) 40 mg PO DAILY [facility] Last Admin: 12/07/20 08:51 Dose: 40 mg Documented by: Zolpidem Tartrate (Zolpidem 10 Mg Tablet) 10 mg PO BEDTIME PRN PRN Reason: Sleep Last Admin: 12/10/20 20:05 Dose: 10 mg Documented by: Vitals/I&O/Wt Last Vital Signs Temp 98.1 F 12/10/20 20:00 Pulse 87 12/10/20 20:00 Resp 21 H 12/10/20 20:05 BP 135/68 12/10/20 20:00 Pulse Ox 98 12/10/20 20:05 12/10/20 12/10/20 12/10/20 06:59 14:59 22:59 Intake Total 340 / 2480.810 1618.333 / 1618.333 Output Total 500 / 2741 945 / 945 990 / 1935 Balance -160 / -260.190 673.333 / 673.333 -990 / -316.667 Weight last 48 hrs Weight 220 lb 6.4 oz Physical Exam Narrative: EXAM NARRATIVE: GENERAL: The patient is alert and responds appropriately. HEENT: No significant pallor, icterus or lymphadenopathy. Oral cavity: There are no mucous membrane lesions. NECK: Trachea appears to be central. No JVD. No bleeding at the catheter sites. RESPIRATORY: Breath sounds are heard bilaterally with occasional scattered c rackles BREASTS: Deferred. HEART: Heart sounds are normal. No S3. No significant murmurs. ABDOMEN: Bowel sounds are normally heard. No abdominal distention. : Deferred. RECTAL: Deferred. LYMPHATIC: No lymphadenopathy noted in the neck or groin. EXTREMITIES: No bleeding from the resection sites. MUSCULOSKELETAL: No acute joint deformities or swelling SKIN: T no rashes or ecchymosis. NEUROPSYCHIATRIC: No focal motor deficits. Const: COMMON NORMALS: alert Resp: COMMON NORMALS: clear to auscultation bilaterally AUSCULTATION: clear to auscultation bilaterally Neuro: SENSORIUM/ORIENTATION: Yes alert Urinary Catheter Management^: Garcia: Cath Placed During This Visit: yes Reason for Continuing Indwelling Catheter: Accurate Measurement of Urinary Output in Critically Ill Patients Urinary Catheter Date of Insertion: 12/08/20 Urinary Catheter Time of Insertion: 08:18 Data : 12/11/20 03:00 12/11/20 03:00 Other Labs: Laboratory Last Values WBC 15.4 10^3/uL (4.0-10.0) H 12/10/20 04:40 RBC 3.31 10^6/uL (4.1-5.3) L 12/10/20 04:40 Hgb 9.9 g/dL (11.5-15.3) L 12/10/20 04:40 Hct 30.8 % (37.0-47.0) L 12/10/20 04:40 MCV 93.1 fL (81-99) 12/10/20 04:40 MCH 29.9 pg (28.0-34.0) 12/10/20 04:40 MCHC 32.1 g/dL (30.0-36.0) 12/10/20 04:40 RDW 14.0 % (12.1-15.1) 12/10/20 04:40 Plt Count 162 10^3/cmm (130-400) 12/10/20 04:40 MPV 10.3 fL (7.4-10.4) 12/10/20 04:40 Neut % (Auto) 77.6 % 12/10/20 04:40 Lymph % (Auto) 10.1 % 12/10/20 04:40 Wood % (Auto) 11.1 % 12/10/20 04:40 Eos % (Auto) 0.2 % 12/10/20 04:40 Baso % (Auto) 0.3 % 12/10/20 04:40 Neut # (Auto) 11.92 10^3/uL (1.8-7.7) H 12/10/20 04:40 Lymph # (Auto) 1.6 10^3/uL (0.8-4.8) 12/10/20 04:40 Wood # (Auto) 1.7 10^3/uL (0.2-0.9) H 12/10/20 04:40 Eos # (Auto) 0.0 10^3/uL (0.0-0.8) 12/10/20 04:40 Baso # (Auto) 0.0 10^3/uL (0.0-0.1) 12/10/20 04:40 Nucleated RBC % (auto) 0 % 12/10/20 04:40 Nucleated RBCs # 0.0 /100WBC 12/10/20 04:40 PT 15.10 SECONDS (12.1-14.9) H 12/09/20 04:05 INR 1.15 (0.8-1.2) 12/09/20 04:05 APTT 33.4 SECONDS (23.9-36.7) 12/09/20 04:05 Specimen Type Arterial 12/09/20 04:26 Sample Site Not specified 12/09/20 04:26 ABG pH 7.44 (7.35-7.45) 12/09/20 04:26 ABG pCO2 33.7 mmHg (35-45) L 12/09/20 04:26 ABG pO2 73.5 mmHg (80.0-100.0) L 12/09/20 04:26 ABG HCO3 22.9 mmol/L (22-26) 12/09/20 04:26 ABG O2 Saturation 95.2 12/09/20 04:26 ABG Base Excess -0.9 mmol/L (-2.0-2.0) 12/09/20 04:26 Haroldo Test Pos 12/09/20 04:26 A-a O2 Gradient 22.2 mmHg (5-10) H 12/09/20 04:26 Hematocrit 25.8 % (37-47) L 12/09/20 04:26 Hgb O2 Saturation 93.8 % (95-100) L 12/09/20 04:26 Carboxyhemoglobin 0.2 %THgb (0.4-20.1) L 12/09/20 04:26 Methemoglobin 1.2 % (0.4-1.5) 12/09/20 04:26 Total Hemoglobin 8.4 g/dL (12-16) L 12/09/20 04:26 Sodium 145.0 mmol/L (131-143) H 12/09/20 04:26 Potassium 3.6 mmol/L (3.5-5.0) 12/09/20 04:26 Glucose 117.0 mg/dL (70-115) H 12/09/20 04:26 Ionized Calcium 1.2 mmol/L (1.1-1.4) 12/09/20 04:26 O2 Delivery Device Vent 12/09/20 04:26 FiO2 40.0 % 12/09/20 04:26 Tidal Volume 0.50 12/09/20 04:26 PEEP 5.0 cmH20 12/09/20 04:26 Hospice Consultant ID Kian 12/09/20 04:26 Sodium 138 mmol/L (136-145) 12/10/20 04:40 Potassium 3.8 mmol/L (3.5-5.1) 12/10/20 04:40 Chloride 106 mmol/L (98-107) 12/10/20 04:40 Carbon Dioxide 24 mmol/L (22-29) 12/10/20 04:40 Anion Gap 11.8 (5-19) 12/10/20 04:40 BUN 14 mg/dL (8-23) 12/10/20 04:40 Creatinine 0.4 mg/dL (0.5-0.9) L 12/10/20 04:40 GFR Calculation 158.3 mL/min (90-130) H 12/10/20 04:40 Glucose 101 mg/dL (65-115) 12/10/20 04:40 POC Glucose 204 mg/dL (70-110) H 12/10/20 17:34 Fasting Glucose Cancelled 12/09/20 04:05 Estimat Average Glucose 260 12/06/20 05:20 Hemoglobin A1c 10.7 % (4.0-6.0) H 12/06/20 05:20 Calculated Osmolality 287 mOsm/kg (285-295) 12/10/20 04:40 Lactic Acid 1.0 mmol/L (0.5-2.2) 12/10/20 17:30 Calcium 8.6 mg/dL (8.5-10.5) 12/10/20 04:40 Phosphorus 4.5 mg/dL (2.5-4.5) 12/08/20 03:30 Magnesium 2.0 mg/dL (1.7-2.3) 12/09/20 04:05 Total Bilirubin 1.1 mg/dL (0.15-1.2) 12/10/20 04:40 Direct Bilirubin 0.20 mg/dL (0.00-0.30) 12/07/20 04:40 AST 57 U/L (0-32) H 12/10/20 04:40 ALT 42 U/L (0-33) H 12/10/20 04:40 Alkaline Phosphatase 114 IU/L (35-105) H 12/10/20 04:40 Troponin T Baseline 13 ng/L (0-10) H 12/05/20 22:28 Troponin T 120 Minute 60.20 ng/L (0-10) H 12/06/20 00:22 Delta Troponin T 47.20 ABS# (0-10) H* 12/06/20 00:22 Troponin T Hi Sens 6Hr 79.14 ng/L (0-10) H 12/06/20 05:20 Troponin T Hi Sens 6Hr Delta 66.14 ng/L (0-12) H* 12/06/20 05:20 NT-Pro-B Natriuret Pep 278 pg/mL (0-125) H 12/06/20 05:20 Total Protein 5.1 g/dL (6.6-8.7) L 12/10/20 04:40 Albumin 2.9 g/dL (3.5-5.2) L 12/10/20 04:40 Globulin 2.2 g/dL (1.3-4.6) 12/10/20 04:40 Triglycerides 150 mg/dL (0-150) 12/06/20 05:20 Cholesterol 205 mg/dL (0-200) H 12/06/20 05:20 LDL Cholesterol, Calc 130 mg/dL (50-129) H 12/06/20 05:20 HDL Cholesterol 45 mg/dL (60-100) L 12/06/20 05:20 LDL/HDL Ratio 2.89 RATIO (0.00-3.22) 12/06/20 05:20 Cholesterol/HDL Ratio 4.56 mg/dL (0.0-4.40) H 12/06/20 05:20 Lipase 27 U/L (13-60) 12/05/20 22:28 TSH 0.02 uIU/mL (0.27-4.20) L 12/07/20 04:40 Free T4 1.45 ng/dL (0.82-1.77) 12/07/20 04:40 Urine Color Yellow (Yellow) 12/08/20 06:30 Urine Appearance Hazy (CLEAR) A 12/08/20 06:30 Urine pH 5 (5-7) 12/08/20 06:30 Ur Specific [place] 1.020 (1.005-1.030) 12/08/20 06:30 Urine Protein Neg (Negative) 12/08/20 06:30 Urine Glucose (UA) 1+ (Normal) 12/08/20 06:30 Urine Ketones Negative (Negative) 12/08/20 06:30 Urine Blood 2+ (Negative) H 12/08/20 06:30 Urine Nitrate Negative (Negative) 12/08/20 06:30 Urine Bilirubin Neg (Negative) 12/08/20 06:30 Urine Urobilinogen Norm mg/dL (Negative) 12/08/20 06:30 Ur Leukocyte Esterase 2+ (Negative) H 12/08/20 06:30 Urine RBC 0-4 /hpf (0-2) H 12/08/20 06:30 Urine WBC 55-80 /hpf (0-5) H 12/08/20 06:30 Ur Squamous Epith Cells 25-40 /hpf (0-5) H 12/08/20 06:30 Amorphous Sediment Not Reportable 12/08/20 06:30 Urine Bacteria 1+ /hpf (NONE) H 12/08/20 06:30 Blood Type O Positive 12/06/20 21:38 Rho(D) Type Positive 12/06/20 21:38 Antibody Screen Negative 12/06/20 21:38 Crossmatch See Detail 12/06/20 21:38 Micro: Microbiology 12/10/20 17:50 Blood Culture - Preliminary Blood SPECIMEN COLLECTED 12/10/20 17:50 Blood Culture - Preliminary Blood SPECIMEN COLLECTED A&P Assessment and plan (1) Status post aorto-coronary artery bypass graft: Patient seems recuperating well. Continue close monitoring in the ICU. Status: Acute (2) Atherosclerotic heart disease of [place] coronary artery without angina pectoris: May continue on the current medication. Consider restarting the Plavix, if okay with Dr. Parra. Status: Acute Qualifiers: [place] vs. transplanted heart: [place] heart Qualified Code(s): I25.10 - Atherosclerotic heart disease of [place] coronary artery without angina pectoris (3) Dyslipidemia (high LDL; low HDL): Continue on the current medication. Status: Acute (4) Uncontrolled type 2 diabetes with neuropathy: Aggressive management of diabetes may be continued. Status: Chronic (5) Hypothyroid: Continue on the current medication. Status: Acute Qualifiers: Hypothyroidism type: acquired Qualified Code(s): E03.9 - Hypothyroidism, unspecified Additional A&P Information Based on the clinical progress, further management decisions will be made. For the time being, may continue on the current medicines. Attestations Medical Necessity Statement*: My stay Coding Level of Care Code Acute Maintenance Instructor for Dev Fwd Exam Expanded Problem Focused Diagnoses Status post aorto-coronary artery bypass graft Z95.1 Atherosclerotic heart disease of [place] coronary artery without angina pectoris I25.10 [place] vs. transplanted heart: [place] heart Dyslipidemia (high LDL; low HDL) E78.5 Uncontrolled type 2 diabetes with neuropathy E11.40; E11.65 Hypothyroid E03.9 Hypothyroidism type: acquired
[2020-12-10 23:13] LABS: Procalcitonin 0.25 ng/mL (0-0.5)
[2020-12-11] VITALS (17 sets, daily range): BP systolic 108–165; BP diastolic 56–96; PULSE 86–100; RESP 14–26; TEMP 36.6–37.6; O2SAT 95–99
[2020-12-11] MEDS: vancomycin 1,250 MG/250 ML PIGGYBACK 200 MG IV ×2 (01:06→08:26)
[2020-12-11 02:18] LABS: Glucose Point of Care 256 mg/dL (70-110)
[2020-12-11] MEDS: piperacillin-tazobactam 3.375 GM in sodium chloride 0.9% (plus) 50 ML IV ×3 (02:41→18:45)
[2020-12-11] MEDS: HYDROmorphone 1 mg/mL INJ 1 mL 0.5 MG IVP ×5 (03:10→19:50)
[2020-12-11 03:33] LABS: Basophils % 0.3 %; Eosinophils # 0.3 10^3/uL (0.0-0.8); Eosinophils % 1.9 %; Hematocrit 25.9 % (37.0-47.0); Hemoglobin 8.2 g/dL (11.5-15.3); Lymphocytes % 14.6 %; Mean Corpuscular HGB Conc 31.7 g/dL (30.0-36.0); Mean Corpuscular Hemoglobin 29.8 pg (28.0-34.0); Mean Corpuscular Volume 94.2 fL (81-99); Mean Platelet Volume 10.6 fL (7.4-10.4); Monocytes # 1.5 10^3/uL (0.2-0.9); Monocytes % 11.1 %; Neutrophils # 9.62 10^3/uL (1.8-7.7); Neutrophils % 71.4 %; Nucleated Red Blood Cells % 0 %; Platelet Count 153 10^3/cmm (130-400); Red Blood Count 2.75 10^6/uL (4.1-5.3); Red Cell Distribution Width 13.4 % (12.1-15.1); White Blood Count 13.5 10^3/uL (4.0-10.0)
[2020-12-11 04:11] LABS: Alanine Aminotransferase 51 U/L (0-33); Albumin Level 2.7 g/dL (3.5-5.2); Alkaline Phosphatase 152 IU/L (35-105); Anion Gap 11.1 (5-19); Aspartate Amino Transferase 29 U/L (0-32); Blood Urea Nitrogen 13 mg/dL (8-23); Calcium 8.6 mg/dL (8.5-10.5); Carbon Dioxide 26 mmol/L (22-29); Chloride 103 mmol/L (98-107); Globulin 2.3 g/dL (1.3-4.6); Glomerular Filtration Rate 158.3 mL/min (90-130); Glucose 180 mg/dL (65-115); Osmolality Calculated 287 mOsm/kg (285-295); Potassium 4.1 mmol/L (3.5-5.1); Sodium 136 mmol/L (136-145); Total Bilirubin 0.8 mg/dL (0.15-1.2)
[2020-12-11] MEDS: fentaNYL 50 mcg/mL INJ 2mL IVP (05:17)
--- NOTE | 2020-12-11 06:00 | XR_ITS ---
WS: [id number] Portable AP semiupright chest, 12/11/2020 Clinical Data: Postop day #3 status post CABG Comparison: Portable chest, 12/10/2020 Findings: The bilateral pleural effusions and bibasilar pulmonary consolidations remain unchanged. Th e heart is enlarged. The [place] catheter sheath has been removed. The mediastinal tubes, right int ernal jugular venous catheter and left chest tube remain in position. Midline sternotomy sutures are seen. There are monitor leads on the chest wall. XR/XR chest 1V portable [id number] Impression: 1. No change in bilateral pleural effusions and bilateral basilar pulmonary con solidations. 2. No change in remaining tubes, but the [place] catheter sheath has been rem aden. 3. No change in cardiomegaly.
[2020-12-11] MEDS: metoprolol tartrate 25 mg Tablet PO ×2 (06:32→21:23)
[2020-12-11] MEDS: ALPRAZolam 0.25 mg Tablet PO ×2 (06:35→16:37)
--- NOTE | 2020-12-11 06:51 | P.PN_ITS ---
Subjective Subjective: Interval history: Postop day #3 status post CABG x3. Persistent right pleural effusion by chest x-ray this morning. Cardiac silhouette remains stable. Chest tube output continues to steadily decrease, 345 cc past 24 hours. Vitals/I&O/Wt Last Vital Signs Temp 99.7 F H 12/11/20 03:06 Pulse 96 12/11/20 06:00 Resp 16 12/11/20 06:00 BP 144/71 12/11/20 06:00 Pulse Ox 96 12/11/20 06:00 12/10/20 12/10/20 12/11/20 14:59 22:59 06:59 Intake Total 1618.333 / 1618.333 300 / 6157.655 3655 / 3298.333 Output Total 945 / 945 990 / 1935 735 / 2670 Balance 673.333 / 673.333 -690 / -16.667 645 / 628.333 Weight last 48 hrs Weight 208 lb 4.8 oz Physical Exam Neck/C-Spine: OTHER: Right IJ line remains in place. Chest: COMMONS NORMALS: normal inspection of the chest (Surgical dressings and support tubes remain in position.) Resp: OTHER: Decreased breath sounds in the bases swelling modest inspiratory effort. Right pleural effusion maintained on chest x-ray Extremity: OTHER: With peripheral edema though perhaps slightly improved. Urinary Catheter Management^: Garcia: Cath Placed During This Visit: yes Reason for Continuing Indwelling Catheter: Accurate Measurement of Urinary Output in Critically Ill Patients Urinary Catheter Date of Insertion: 12/08/20 Urinary Catheter Time of Insertion: 08:18 Data : 12/11/20 03:00 12/11/20 03:00 Micro: Microbiology 12/10/20 17:50 Blood Culture - Preliminary Blood SPECIMEN COLLECTED 12/10/20 17:50 Blood Culture - Preliminary Blood SPECIMEN COLLECTED A&P Assessment and plan (1) Status post aorto-coronary artery bypass graft: Postop day #3 status post CABG x3 Still with volume overload. Did miss a dose of beta-kj yesterday evening. Has received morning dose. Recommendation: I would proceed with more aggressive diuresis. I will order Lasix 20 g IV now. Recommend another dose this afternoon. She needs more aggressive pulmonary toilet. I would leave chest tubes in for now until there is a better diuresis and she is a more active. Greatly appreciate the expertise and oversight of our hospitalist and cardiology colleagues. Status: Acute Attestations Medical Necessity Statement*: Postop day #3 status post CABG x3 Time Spent in Patient Care: 16 - 35 minutes Coding Level of Care Code Acute Pipe And Tank Fabricator for Chg Fwd Diagnoses Status post aorto-coronary artery bypass graft Z95.1
[2020-12-11] MEDS: FUROsemide 10 mg/mL SDV 2mL 20 MG IVP ×2 (07:04→21:23)
[2020-12-11 07:55] LABS: Glucose Point of Care 231 mg/dL (70-110)
[2020-12-11] MEDS: aspirin 81 mg Chew Tablet PO (08:26)
--- NOTE | 2020-12-11 10:06 | PC.NURSE ---
ocean chest tube CHANGED, D/T CONTAINER TURNING OVER.
--- NOTE | 2020-12-11 11:13 | P.PN_ITS ---
Subjective Subjective: Interval history: Postop day #4 status post CABG x3.Patient was seen and examined this morning. Patient is doing well.She participated In Physical Therapy. She has remained afebrile.Has good urine. Medications: Reviewed: Yes Medication Review Details: Current Medications Acetaminophen (Acetaminophen 325 Mg Tablet) 650 mg PO Q6H PRN PRN Reason: Mild/Mod Pain Or Temp >/= 101 Last Admin: 12/06/20 05:30 Dose: 650 mg Documented by: Acetaminophen (Acetaminophen 325 Mg Tablet) 650 mg PO Q6H PRN PRN Reason: MILD PAIN Hydrocodone Bitart/Acetaminophen (Hydrocodone-Acetaminophen 10-325 Mg Tablet) 1 tab PO Q6H PRN PRN Reason: Pain Last Admin: 12/07/20 23:20 Dose: 1 tab Documented by: Alprazolam (Alprazolam 0.25 Mg Tablet) 0.25 mg PO TID PRN PRN Reason: ANXIETY Last Admin: 12/10/20 04:02 Dose: 0.25 mg Documented by: Aspirin (Aspirin 325 Mg Ec Tablet) 325 mg PO DAILY [facility] Last Admin: 12/07/20 08:51 Dose: 325 mg Documented by: Aspirin (Aspirin 81 Mg Chew Tablet) 81 mg PO DAILY [facility] Last Admin: 12/10/20 09:03 Dose: 81 mg Documented by: Atorvastatin Calcium (Atorvastatin 40 Mg Tablet) 40 mg PO BEDTIME [facility] Last Admin: 12/07/20 20:15 Dose: 40 mg Documented by: Atorvastatin Calcium (Atorvastatin 40 Mg Tablet) 20 mg PO BEDTIME [facility] Last Admin: 12/10/20 20:04 Dose: 20 mg Documented by: Atropine Sulfate (Atropine 1 Mg/Ml Sdv 1 Ml) 0.5 mg IVP PRN PRN PRN Reason: Symptomatic bradycardia Baclofen (Baclofen 10 Mg Tablet) 10 mg PO BID PRN PRN Reason: Muscle Spasm Last Admin: 12/07/20 08:52 Dose: 10 mg Documented by: Chlorhexidine Gluconate (Chlorhexidine Gluconate 0.12% Btl 473 Ml) 15 ml MUCOUS MEM BID [facility] Last Admin: 12/07/20 17:17 Dose: 1 applic Documented by: Chlorhexidine Gluconate (Chlorhexidine Gluconate 4% Btl 118 Ml) 1 applic TOPICAL DAILY [facility] Last Admin: 12/07/20 17:18 Dose: 1 applic Documented by: Chlorhexidine Gluconate (Chlorhexidine Gluconate 0.12% Btl 473 Ml) 15 ml MUCOUS MEM BID [facility] Last Admin: 12/10/20 18:48 Dose: Not Given Documented by: Dextrose (Dextrose 50% Syringe 50 Ml) 50 ml IVP PRN PRN; Protocol PRN Reason: hypoglycemia protocol Dextrose (Dextrose 50% Syringe 50 Ml) 25 ml IVP ONCE PRN; Protocol PRN Reason: hypoglycemia protocol Dextrose (Dextrose 50% Syringe 50 Ml) 25 ml IVP ONCE PRN; Protocol PRN Reason: hypoglycemia protocol Dextrose (Dextrose 50% Syringe 50 Ml) 50 ml IVP PRN PRN; Protocol PRN Reason: hypoglycemia protocol Epinephrine (Racepinephrine 0.5 Ml Neb) 0.5 ml INHALATION Q6H.RESPIRATORY PRN PRN Reason: Stridor Fentanyl (Fentanyl 50 Mcg/Ml Inj 2ml) 50 mcg IVP Q1H PRN PRN Reason: SEVERE PAIN Last Admin: 12/10/20 20:05 Dose: 50 mcg Documented by: Glucagon (Glucagon 1 Mg/Ml Inj 1 Ml) 1 mg IM ONCE PRN; Protocol PRN Reason: Adult Acute Hypoglycemia Prot. Glucagon (Glucagon 1 Mg/Ml Inj 1 Ml) 1 mg IM ONCE PRN; Protocol PRN Reason: Adult Acute Hypoglycemia Prot Glucagon (Glucagon 1 Mg/Ml Inj 1 Ml) 1 mg IM ONCE PRN; Protocol PRN Reason: Adult Acute Hypoglycemia Prot. Heparin Sodium (Beef Lung) (Heparin 5,000 Unit/Ml Inj 1 Ml) 0 unit IV PRN PRN; Protocol PRN Reason: Heparin weight-base protocol Last Admin: 12/07/20 10:35 Dose: 42,000 unit Documented by: Hydralazine HCl (Hydralazine 20 Mg/Ml Inj 1 Ml) 5 mg IVP ONCE PRN PRN Reason: Systolic BP > 140 mmHg Hydromorphone HCl (Hydromorphone 1 Mg/Ml Inj 1 Ml) 0.5 mg IVP Q3H PRN PRN Reason: PAIN Last Admin: 12/10/20 14:18 Dose: 0.5 mg Documented by: Sodium Chloride (Sodium Chloride 0.9%) 1,000 mls @ 75 mls/hr IV .[id number] [facility] Last Admin: 12/07/20 17:17 Dose: 75 mls/hr Documented by: Nitroglycerin/Dextrose (Nitroglycerin Drip) 50 mg in 250 mls @ 0 mls/hr IV .Q0M [facility]; Protocol Last Titration: 12/08/20 17:19 Dose: Infused Documented by: Insulin Human Regular 250 unit (/ Sodium Chloride) 252.5 mls @ 0 mls/hr IV .Q0M [facility]; Protocol Last Titration: 12/08/20 17:19 Dose: Infused Documented by: Propofol (Diprivan) 1,000 mg in 100 mls @ 0 mls/hr IV .Q0M [facility]; Protocol Last Titration: 12/09/20 09:39 Dose: 15 mcg/kg/min, 7.6 mls/hr Documented by: Nitroglycerin/Dextrose (Nitroglycerin Drip) 50 mg in 250 mls @ 0 mls/hr IV .Q0M [facility]; Protocol Last Titration: 12/10/20 02:07 Dose: Infused Documented by: Albumin Human (Albumin) 12.5 gm in 250 mls @ 600 mls/hr IV PRN PRN PRN Reason: For CVP < 4 or SBP< 90 Last Infusion: 12/08/20 22:30 Dose: Infused Documented by: Sodium Nitroprusside 50 mg/ (Dextrose) 252 mls @ 0 mls/hr IV .Q0M [facility]; Protocol Labetalol HCl 300 mg/ Sodium (Chloride) 300 mls @ 30 mls/hr IV .Q10H PRN; Protocol PRN Reason: Systolic BP > 140 mmHg Dopamine HCl/Dextrose (Intropin Drip) 400 mg in 250 mls @ 15.93 mls/hr IV CONT PRN; Protocol PRN Reason: Hypotension Dobutamine HCl/Dextrose (Dobutamine Drip) 500 mg in 250 mls @ 0 mls/hr IV .Q0M PRN; Protocol PRN Reason: Cardiac Output Norepinephrine Bitartrate 4 mg (/ Dextrose) 254 mls @ 10.583 mls/hr IV .Q24H PRN; Protocol PRN Reason: HYPOTENSION Phenylephrine HCl 25 mg/ (Sodium Chloride) 252.5 mls @ 0 mls/hr IV .Q0M PRN; Protocol PRN Reason: HYPOTENSION Last Titration: 12/10/20 09:43 Dose: Infused Documented by: Dextrose (D5w) 500 mls @ 100 mls/hr IV ONCE PRN; Protocol PRN Reason: Adult Acute Hypoglycemia Prot Sodium Chloride (Sodium Chloride 0.9%) 1,000 mls @ 75 mls/hr IV .[id number] [facility] Last Admin: 12/10/20 14:18 Dose: 75 mls/hr Documented by: Dextrose (D5w) 500 mls @ 100 mls/hr IV ONCE PRN; Protocol PRN Reason: Adult Acute Hypoglycemia Prot Piperacillin Sod/Tazobactam (Sod 3.375 gm/ Sodium Chloride) 50 mls @ 12.5 mls/hr IV Q8H [facility]; Protocol Last Admin: 12/10/20 18:47 Dose: 12.5 mls/hr Documented by: Vancomycin/PEG/[place]/Lysine/Water (Vancocin) 1,250 mg in 250 mls @ 200 mls/hr IV Q8H [facility] Last Admin: 12/10/20 17:13 Dose: 200 mls/hr Documented by: Insulin Aspart (Insulin Aspart 100 Unit/1 Ml) 0 unit SUBCUT WM&BEDTIME [facility]; Protocol Last Admin: 12/10/20 20:04 Dose: 8 unit Documented by: Labetalol HCl (Labetalol 5 Mg/Ml Sdv 20ml) 10 mg IVP Q5M PRN PRN Reason: Systolic BP >140 mmHG Lanolin (Lanolin Oint 7 Gm) 1 applic TOPICAL PRN PRN PRN Reason: DRYNESS Lanolin (Lanolin Oint 7 Gm) 1 applic TOPICAL PRN PRN PRN Reason: DRYNESS Levothyroxine Sodium (Levothyroxine 125 Mcg Tablet) 125 mcg PO QAM [facility] Last Admin: 12/07/20 20:16 Dose: Not Given Documented by: Magnesium Hydroxide (Magnesium Hydroxide 30 Ml Udc) 30 ml PO DAILY PRN PRN Reason: CONSTIPATION Metoprolol Tartrate (Metoprolol Tartrate 25 Mg Tablet) 25 mg PO BID@0900,2100 [facility] Last Admin: 12/07/20 20:15 Dose: 25 mg Documented by: Midazolam HCl (Midazolam 1 Mg/Ml Inj 2 Ml) 1 mg IVP Q1H PRN PRN Reason: Sedation for Montoya score < 4. Last Admin: 12/09/20 02:03 Dose: 1 mg Documented by: Mupirocin (Mupirocin Oint 22 Gm) 1 applic NASAL BID [facility] Last Admin: 12/08/20 05:57 Dose: 1 applic Documented by: Naloxone HCl (Naloxone 0.4 Mg/Ml Sdv) 0.1 mg IVP Q2M PRN PRN Reason: RESPIRATORY RATE < 8/MIN Naloxone HCl (Naloxone 0.4 Mg/Ml Sdv) 0.1 mg IVP Q2M PRN PRN Reason: OPIATERV Nitroglycerin (Nitroglycerin 0.4 Mg Sublingual Tablet) 0.4 mg SUBLINGUAL Q5M PRN PRN Reason: CHEST PAIN Last Admin: 12/05/20 22:41 Dose: 1 tab Documented by: Ondansetron HCl (Ondansetron 2 Mg/Ml Sdv 2 Ml) 4 mg IVP Q8H PRN PRN Reason: vomiting, or N/V if npo Last Admin: 12/08/20 05:51 Dose: 4 mg Documented by: Ondansetron HCl (Ondansetron 2 Mg/Ml Sdv 2 Ml) 4 mg IVP Q6H PRN PRN Reason: NAUSEA Last Admin: 12/10/20 17:13 Dose: 4 mg Documented by: Oxycodone/Acetaminophen (Oxycodone-Apap 5-325 Mg Tablet) 1 - 2 tab PO Q6H PRN PRN Reason: MILD TO MODERATE PAIN Last Admin: 12/10/20 17:42 Dose: 2 tab Documented by: Pantoprazole Sodium (Pantoprazole Dr 40 Mg Tablet) 40 mg PO DAILY [facility] Last Admin: 12/07/20 08:51 Dose: 40 mg Documented by: Zolpidem Tartrate (Zolpidem 10 Mg Tablet) 10 mg PO BEDTIME PRN PRN Reason: Sleep Last Admin: 12/10/20 20:05 Dose: 10 mg Documented by: Vitals/I&O/Wt Last Vital Signs Temp 99.7 F H 12/11/20 03:06 Pulse 88 12/11/20 08:39 Resp 18 12/11/20 08:39 BP 144/71 12/11/20 06:00 Pulse Ox 96 12/11/20 08:39 12/10/20 12/11/20 12/11/20 22:59 06:59 14:59 Intake Total 300 / 7229.152 4530 / 3298.333 240 / 240 Output Total 990 / 1935 735 / 2670 Balance -690 / -16.667 645 / 628.333 240 / 240 Weight last 48 hrs Weight 94.483 kg Physical Exam Const: COMMON NORMALS: patient oriented x3 HENMT: COMMON NORMALS: normocephalic and atraumatic HEAD & SCALP: normocephalic and atraumatic Chest: COMMONS NORMALS: normal inspection of the chest CHEST: Yes Symmetrical chest wall rise OTHER: Surgical dressings in place.Support tubes in position. Resp: COMMON NORMALS: clear to auscultation bilaterally EFFORT & INSPECTION: Yes symmetric chest movement AUSCULTATION: clear to auscultation bilaterally OTHER: B/L Basal Crackles Present,diminished breath sounds ant bases rt>lt Cardio: COMMON NORMALS: regular rate, regular rhythm, S1 normal heart sound present, S2 normal heart sound present, No gallops present (Cardio), No murmurs present (Cardio), No rub (Cardio) and Peripheral pulses 2+ throughout RATE: regular rate RHYTHM: regular rhythm HEART SOUNDS: S1 normal heart sound present and S2 normal heart sound present PERIPHERAL PULSES: Peripheral pulses 2+ throughout GI: COMMON NORMALS: Normal to inspection, nondistended, normoactive bowel so unds present, Soft to palpation, non-tender, No hepatosplenomegaly present and no masses AUSCULTATION: Yes normoactive bowel sounds PALPATION: Yes Soft to palpation and Yes No hepatosplenomegaly present RECTAL EXAM: deferred Extremity: COMMON NORMALS: no clubbing, cyanosis or edema and no pedal edema Neuro: COMMON NORMALS: patient oriented x3 Urinary Catheter Management^: Garcia: Cath Placed During This Visit: yes Reason for Continuing Indwelling Catheter: Accurate Measurement of Urinary Output in Critically Ill Patients Urinary Catheter Date of Insertion: 12/08/20 Urinary Catheter Time of Insertion: 08:18 Data : 12/11/20 03:00 12/11/20 03:00 Micro: Microbiology 12/10/20 17:50 Blood Culture - Preliminary Blood SPECIMEN COLLECTED 12/10/20 17:50 Blood Culture - Preliminary Blood SPECIMEN COLLECTED A&P Assessment and plan (1) Non-ST elevation ND (NSTEMI): -Multivessel CAD -S/P : Coronary artery bypass grafting x3 utilizing in situ left internal mammary artery to the left anterior descending artery, reverse saphenous vein graft aorta to the diagonal artery, reverse saphenous vein graft aorta to the obtuse marginal branch of circumflex artery. -Continue aspirin, statin, beta-kj -Continue to monitor for chest pain, telemetry monitoring -Continue to monitor in ICU -Full code -Heparin for DVT prophylaxis, SCDs Status: Acute (2) Leukocytosis: WBC has trended up : to 15T FROM 10.2 now trending down Xray chest : No change in bilateral pleural effusions and bilateral basilar pulmonary consolidations. Blood Culture:Negative urine culture: lactic acid:1 Procal:0.25 Will empirically cover with Van and Zosyn Status: Acute (3) UTI (urinary tract infection): Follow urine culture Continue Abx as above Status: Acute (4) Transaminitis: Will monitor LFT Hepatitis panel HIV Status: Acute (5) Uncontrolled type 2 diabetes with neuropathy: Usually on insulin and glipizide Hemoglobin A1c 10.7 Hold Lantus Insulin sliding scale Status: Chronic (6) Hypothyroid: On levothyroxine Status: Acute Qualifiers: Hypothyroidism type: acquired Qualified Code(s): E03.9 - Hypothyroidism, unspecified (7) Hyperlipidemia: Not currently on treatment Status: Inactive (8) Fibromyalgia: On hydrocodone and prn baclofen Status: Acute Additional A&P Information GI prophylaxis Continue home pain management as needed medicines Supportive care otherwise Plans discussed with patient and she was given an opportunity to ask questions Full code Attestations Medical Necessity Statement*: Patient needs to be in hospital fOR s/p CABG Coding Level of Care Code Acute Staff Cytotechnologist for Chg Fwd Exam Detailed Diagnoses Non-ST elevation ND (NSTEMI) I21.4 Leukocytosis D72.829 UTI (urinary tract infection) N39.0 Transaminitis R74.01 Uncontrolled type 2 diabetes with neuropathy E11.40; E11.65 Hypothyroid E03.9 Hypothyroidism type: acquired Hyperlipidemia E78.5 Fibromyalgia M79.7
[2020-12-11] MEDS: oxyCODONE-APAP 5-325 mg Tablet PO ×3 (12:56→22:27)
[2020-12-11] MEDS: FUROsemide 20 mg Tablet PO (13:59)
--- NOTE | 2020-12-11 16:08 | PC.SOCIAL ---
*IMM* Updated. Patient received a copy.
[2020-12-11] MEDS: sodium chloride 0.9% 1,000 ML 30 ML IV ×2 (16:48→16:51)
[2020-12-11 17:11] LABS: Glucose Point of Care 224 mg/dL (70-110)
[2020-12-11] MEDS: ondansetron 2 mg/ML SDV 2 mL 4 MG IVP (17:18)
[2020-12-11 17:29] LABS: Vancomycin Trough 11.4 ug/mL (10-15)
[2020-12-11] MEDS: vancomycin 1,250 MG/250 ML PIGGYBACK 150 MG IV (17:52)
--- NOTE | 2020-12-11 18:23 | PM.PN ---
Subjective Subjective: Interval history: Patient is doing okay. Mainly complaining of pain all over the body, more so at the incision site. Patient is known to have fibromyalgia. She has been taking hydrocodone at home. She denies any unusual shortness of breath. No fever or chills. No cough. The chest tube is still in and is draining around 100 cc Medications: Reviewed: Yes Medication Review Details: Current Medications Acetaminophen (Acetaminophen 325 Mg Tablet) 650 mg PO Q6H PRN PRN Reason: Mild/Mod Pain Or Temp >/= 101 Last Admin: 12/06/20 05:30 Dose: 650 mg Documented by: Acetaminophen (Acetaminophen 325 Mg Tablet) 650 mg PO Q6H PRN PRN Reason: MILD PAIN Hydrocodone Bitart/Acetaminophen (Hydrocodone-Acetaminophen 10-325 Mg Tablet) 1 tab PO Q6H PRN PRN Reason: Pain Last Admin: 12/07/20 23:20 Dose: 1 tab Documented by: Alprazolam (Alprazolam 0.25 Mg Tablet) 0.25 mg PO TID PRN PRN Reason: ANXIETY Last Admin: 12/11/20 16:37 Dose: 0.25 mg Documented by: Aspirin (Aspirin 325 Mg Ec Tablet) 325 mg PO DAILY [facility] Last Admin: 12/07/20 08:51 Dose: 325 mg Documented by: Aspirin (Aspirin 81 Mg Chew Tablet) 81 mg PO DAILY [facility] Last Admin: 12/11/20 08:26 Dose: 81 mg Documented by: Atorvastatin Calcium (Atorvastatin 40 Mg Tablet) 20 mg PO BEDTIME [facility] Last Admin: 12/10/20 20:04 Dose: 20 mg Documented by: Atropine Sulfate (Atropine 1 Mg/Ml Sdv 1 Ml) 0.5 mg IVP PRN PRN PRN Reason: Symptomatic bradycardia Baclofen (Baclofen 10 Mg Tablet) 10 mg PO BID PRN PRN Reason: Muscle Spasm Last Admin: 12/07/20 08:52 Dose: 10 mg Documented by: Chlorhexidine Gluconate (Chlorhexidine Gluconate 0.12% Btl 473 Ml) 15 ml MUCOUS MEM BID [facility] Last Admin: 12/07/20 17:17 Dose: 1 applic Documented by: Chlorhexidine Gluconate (Chlorhexidine Gluconate 4% Btl 118 Ml) 1 applic TOPICAL DAILY [facility] Last Admin: 12/07/20 17:18 Dose: 1 applic Documented by: Chlorhexidine Gluconate (Chlorhexidine Gluconate 0.12% Btl 473 Ml) 15 ml MUCOUS MEM BID [facility] Last Admin: 12/10/20 18:48 Dose: Not Given Documented by: Dextrose (Dextrose 50% Syringe 50 Ml) 50 ml IVP PRN PRN; Protocol PRN Reason: hypoglycemia protocol Dextrose (Dextrose 50% Syringe 50 Ml) 25 ml IVP ONCE PRN; Protocol PRN Reason: hypoglycemia protocol Dextrose (Dextrose 50% Syringe 50 Ml) 25 ml IVP ONCE PRN; Protocol PRN Reason: hypoglycemia protocol Dextrose (Dextrose 50% Syringe 50 Ml) 50 ml IVP PRN PRN; Protocol PRN Reason: hypoglycemia protocol Epinephrine (Racepinephrine 0.5 Ml Neb) 0.5 ml INHALATION Q6H.RESPIRATORY PRN PRN Reason: Stridor Fentanyl (Fentanyl 50 Mcg/Ml Inj 2ml) 50 mcg IVP Q1H PRN PRN Reason: SEVERE PAIN Last Admin: 12/11/20 05:17 Dose: 50 mcg Documented by: Glucagon (Glucagon 1 Mg/Ml Inj 1 Ml) 1 mg IM ONCE PRN; Protocol PRN Reason: Adult Acute Hypoglycemia Prot. Glucagon (Glucagon 1 Mg/Ml Inj 1 Ml) 1 mg IM ONCE PRN; Protocol PRN Reason: Adult Acute Hypoglycemia Prot Glucagon (Glucagon 1 Mg/Ml Inj 1 Ml) 1 mg IM ONCE PRN; Protocol PRN Reason: Adult Acute Hypoglycemia Prot. Heparin Sodium (Beef Lung) (Heparin 5,000 Unit/Ml Inj 1 Ml) 0 unit IV PRN PRN; Protocol PRN Reason: Heparin weight-base protocol Last Admin: 12/07/20 10:35 Dose: 42,000 unit Documented by: Hydralazine HCl (Hydralazine 20 Mg/Ml Inj 1 Ml) 5 mg IVP ONCE PRN PRN Reason: Systolic BP > 140 mmHg Hydromorphone HCl (Hydromorphone 1 Mg/Ml Inj 1 Ml) 0.5 mg IVP Q3H PRN PRN Reason: PAIN Last Admin: 12/11/20 16:37 Dose: 0.5 mg Documented by: Sodium Chloride (Sodium Chloride 0.9%) 1,000 mls @ 75 mls/hr IV .[id number] [facility] Last Admin: 12/07/20 17:17 Dose: 75 mls/hr Documented by: Nitroglycerin/Dextrose (Nitroglycerin Drip) 50 mg in 250 mls @ 0 mls/hr IV .Q0M [facility]; Protocol Last Titration: 12/08/20 17:19 Dose: Infused Documented by: Insulin Human Regular 250 unit (/ Sodium Chloride) 252.5 mls @ 0 mls/hr IV .Q0M [facility]; Protocol Last Titration: 12/08/20 17:19 Dose: Infused Documented by: Propofol (Diprivan) 1,000 mg in 100 mls @ 0 mls/hr IV .Q0M [facility]; Protocol Last Titration: 12/09/20 09:39 Dose: 15 mcg/kg/min, 7.6 mls/hr Documented by: Nitroglycerin/Dextrose (Nitroglycerin Drip) 50 mg in 250 mls @ 0 mls/hr IV .Q0M [facility]; Protocol Last Titration: 12/10/20 02:07 Dose: Infused Documented by: Albumin Human (Albumin) 12.5 gm in 250 mls @ 600 mls/hr IV PRN PRN PRN Reason: For CVP < 4 or SBP< 90 Last Infusion: 12/08/20 22:30 Dose: Infused Documented by: Sodium Nitroprusside 50 mg/ (Dextrose) 252 mls @ 0 mls/hr IV .Q0M [facility]; Protocol Labetalol HCl 300 mg/ Sodium (Chloride) 300 mls @ 30 mls/hr IV .Q10H PRN; Protocol PRN Reason: Systolic BP > 140 mmHg Dopamine HCl/Dextrose (Intropin Drip) 400 mg in 250 mls @ 15.93 mls/hr IV CONT PRN; Protocol PRN Reason: Hypotension Dobutamine HCl/Dextrose (Dobutamine Drip) 500 mg in 250 mls @ 0 mls/hr IV .Q0M PRN; Protocol PRN Reason: Cardiac Output Norepinephrine Bitartrate 4 mg (/ Dextrose) 254 mls @ 10.583 mls/hr IV .Q24H PRN; Protocol PRN Reason: HYPOTENSION Phenylephrine HCl 25 mg/ (Sodium Chloride) 252.5 mls @ 0 mls/hr IV .Q0M PRN; Protocol PRN Reason: HYPOTENSION Last Titration: 12/10/20 09:43 Dose: Infused Documented by: Dextrose (D5w) 500 mls @ 100 mls/hr IV ONCE PRN; Protocol PRN Reason: Adult Acute Hypoglycemia Prot Sodium Chloride (Sodium Chloride 0.9%) 1,000 mls @ 0 mls/hr IV .[id number] [facility] Last Admin: 12/11/20 16:51 Dose: 30 mls/hr Documented by: Dextrose (D5w) 500 mls @ 100 mls/hr IV ONCE PRN; Protocol PRN Reason: Adult Acute Hypoglycemia Prot Piperacillin Sod/Tazobactam (Sod 3.375 gm/ Sodium Chloride) 50 mls @ 12.5 mls/hr IV Q8H [facility]; Protocol Last Infusion: 12/11/20 16:45 Dose: Infused Documented by: Vancomycin/PEG/NADA/Lysine/Water (Vancocin) 1,250 mg in 250 mls @ 200 mls/hr IV Q8H [facility] Last Admin: 12/11/20 17:52 Dose: 150 mls/hr Documented by: Insulin Aspart (Insulin Aspart 100 Unit/1 Ml) 0 unit SUBCUT WM&BEDTIME [facility]; Protocol Last Admin: 12/11/20 17:53 Dose: 10 unit Documented by: Labetalol HCl (Labetalol 5 Mg/Ml Sdv 20ml) 10 mg IVP Q5M PRN PRN Reason: Systolic BP >140 mmHG Lanolin (Lanolin Oint 7 Gm) 1 applic TOPICAL PRN PRN PRN Reason: DRYNESS Lanolin (Lanolin Oint 7 Gm) 1 applic TOPICAL PRN PRN PRN Reason: DRYNESS Levothyroxine Sodium (Levothyroxine 75 Mcg Tablet) 150 mcg PO QAM [facility] Magnesium Hydroxide (Magnesium Hydroxide 30 Ml Udc) 30 ml PO DAILY PRN PRN Reason: CONSTIPATION Metoprolol Tartrate (Metoprolol Tartrate 25 Mg Tablet) 25 mg PO BID@0900,2100 [facility] Midazolam HCl (Midazolam 1 Mg/Ml Inj 2 Ml) 1 mg IVP Q1H PRN PRN Reason: Sedation for Montoya score < 4. Last Admin: 12/09/20 02:03 Dose: 1 mg Documented by: Mupirocin (Mupirocin Oint 22 Gm) 1 applic NASAL BID [facility] Last Admin: 12/08/20 05:57 Dose: 1 applic Documented by: Naloxone HCl (Naloxone 0.4 Mg/Ml Sdv) 0.1 mg IVP Q2M PRN PRN Reason: RESPIRATORY RATE < 8/MIN Naloxone HCl (Naloxone 0.4 Mg/Ml Sdv) 0.1 mg IVP Q2M PRN PRN Reason: OPIATERV Nitroglycerin (Nitroglycerin 0.4 Mg Sublingual Tablet) 0.4 mg SUBLINGUAL Q5M PRN PRN Reason: CHEST PAIN Last Admin: 12/05/20 22:41 Dose: 1 tab Documented by: Ondansetron HCl (Ondansetron 2 Mg/Ml Sdv 2 Ml) 4 mg IVP Q8H PRN PRN Reason: vomiting, or N/V if npo Last Admin: 12/08/20 05:51 Dose: 4 mg Documented by: Ondansetron HCl (Ondansetron 2 Mg/Ml Sdv 2 Ml) 4 mg IVP Q6H PRN PRN Reason: NAUSEA Last Admin: 12/11/20 17:18 Dose: 4 mg Documented by: Oxycodone/Acetaminophen (Oxycodone-Apap 5-325 Mg Tablet) 1 - 2 tab PO Q6H PRN PRN Reason: MILD TO MODERATE PAIN Last Admin: 12/11/20 17:57 Dose: 2 tab Documented by: Pantoprazole Sodium (Pantoprazole Dr 40 Mg Tablet) 40 mg PO DAILY [facility] Last Admin: 12/07/20 08:51 Dose: 40 mg Documented by: Zolpidem Tartrate (Zolpidem 10 Mg Tablet) 10 mg PO BEDTIME PRN PRN Reason: Sleep Last Admin: 12/10/20 20:05 Dose: 10 mg Documented by: Vitals/I&O/Wt Last Vital Signs Temp 97.8 F 12/11/20 12:00 Pulse 96 12/11/20 14:00 Resp 20 H 12/11/20 14:00 BP 119/56 12/11/20 14:00 Pulse Ox 97 12/11/20 14:00 12/11/20 12/11/20 12/11/20 06:59 14:59 22:59 Intake Total 1380 / 3298.333 970 / 970 51.5 / 1021.5 Output Total 735 / 2670 Balance 645 / 628.333 970 / 970 51.5 / 1021.5 Weight last 48 hrs Weight 208 lb 4.8 oz Physical Exam Narrative: EXAM NARRATIVE: GENERAL: The patient is alert and oriented x3 HEENT: No significant pallor, icterus or lymphadenopathy. Oral cavity: There are no mucous membrane lesions. NECK: Trachea appears to be central. No JVD. No bleeding at the catheter sites. RESPIRATORY: Breath sounds are heard bilaterally with occasional scattered crackles BREASTS: Deferred. HEART: Heart sounds are normal. No S3. No significant murmurs. No pericardial rub ABDOMEN: Bowel sounds are normally heard. No abdominal distention. : Deferred. RECTAL: Deferred. LYMPHATIC: No lymphadenopathy noted in the neck or groin. EXTREMITIES: No bleeding from the resection sites. MUSCULOSKELETAL: No acute joint deformities or swelling SKIN: T no rashes or ecchymosis. NEUROPSYCHIATRIC: No focal motor deficits. Const: COMMON NORMALS: alert Resp: COMMON NORMALS: clear to auscultation bilaterally AUSCULTATION: clear to auscultation bilaterally Neuro: SENSORIUM/ORIENTATION: Yes alert Urinary Catheter Management^: Garcia: Cath Placed During This Visit: yes Reason for Continuing Indwelling Catheter: Accurate Measurement of Urinary Output in Critically Ill Patients Urinary Catheter Date of Insertion: 12/08/20 Urinary Catheter Time of Insertion: 08:18 Data : 12/12/20 03:20 12/12/20 03:20 Micro: Microbiology 12/10/20 17:50 Blood Culture - Preliminary Blood NEGATIVE TO DATE 12/10/20 17:50 Blood Culture - Preliminary Blood NEGATIVE TO DATE A&P Assessment and plan (1) Status post aorto-coronary artery bypass graft: Patient seems recuperating well. Continue close monitoring in the ICU. Possible chest tube removal tomorrow Status: Acute (2) Atherosclerotic heart disease of [place] coronary artery without angina pectoris: May continue on the current medication. We will consider restarting the Plavix tomorrow Status: Acute Qualifiers: [place] vs. transplanted heart: [place] heart Qualified Code(s): I25.10 - Atherosclerotic heart disease of [place] coronary artery without angina pectoris (3) Dyslipidemia (high LDL; low HDL): Continue on the current medication. Status: Acute (4) Uncontrolled type 2 diabetes with neuropathy: The blood sugar seems to be getting under control. Status: Chronic (5) Hypothyroid: Continue on the current medication. Status: Acute Qualifiers: Hypothyroidism type: acquired Qualified Code(s): E03.9 - Hypothyroidism, unspecified Additional A&P Information Based on the clinical progress, further management decisions will be made. Attestations Medical Necessity Statement*: Patient requires continued hospital stay for close monitoring and further management Coding Level of Care Code Acute Pad Extraction Tender for Chg Fwd Exam Expanded Problem Focused Diagnoses Status post aorto-coronary artery bypass graft Z95.1 Atherosclerotic heart disease of [place] coronary artery without angina pectoris I25.10 [place] vs. transplanted heart: [place] heart Dyslipidemia (high LDL; low HDL) E78.5 Uncontrolled type 2 diabetes with neuropathy E11.40; E11.65 Hypothyroid E03.9 Hypothyroidism type: acquired
[2020-12-11] MEDS: amlodipine 5 mg Tablet PO (18:45)
[2020-12-11 21:17] LABS: Glucose Point of Care 160 mg/dL (70-110)
[2020-12-11] MEDS: atorvastatin 40 mg Tablet 20 MG PO (21:22)
[2020-12-11 21:46] LABS: Glucose Point of Care 274 mg/dL (70-110)
[2020-12-12] VITALS (20 sets, daily range): BP systolic 110–159; BP diastolic 57–87; PULSE 77–96; RESP 13–23; TEMP 36.7–37.2; O2SAT 96–99
[2020-12-12] MEDS: vancomycin 1,250 MG/250 ML PIGGYBACK 150 MG IV ×3 (01:14→19:33)
[2020-12-12] MEDS: piperacillin-tazobactam 3.375 GM in sodium chloride 0.9% (plus) 50 ML IV ×3 (02:43→18:13)
[2020-12-12 03:43] LABS: Basophils % 0.3 %; Eosinophils # 0.5 10^3/uL (0.0-0.8); Eosinophils % 4.6 %; Hematocrit 24.9 % (37.0-47.0); Hemoglobin 7.8 g/dL (11.5-15.3); Lymphocytes # 1.9 10^3/uL (0.8-4.8); Lymphocytes % 19.4 %; Mean Corpuscular HGB Conc 31.3 g/dL (30.0-36.0); Mean Corpuscular Hemoglobin 29.7 pg (28.0-34.0); Mean Corpuscular Volume 94.7 fL (81-99); Mean Platelet Volume 10.4 fL (7.4-10.4); Monocytes % 10.7 %; Neutrophils % 64.5 %; Nucleated Red Blood Cells % 0 %; Platelet Count 174 10^3/cmm (130-400); Red Blood Count 2.63 10^6/uL (4.1-5.3); Red Cell Distribution Width 12.9 % (12.1-15.1); White Blood Count 9.8 10^3/uL (4.0-10.0)
[2020-12-12 04:12] LABS: Anion Gap 10.6 (5-19); Blood Urea Nitrogen 9 mg/dL (8-23); Calcium 8.4 mg/dL (8.5-10.5); Carbon Dioxide 30 mmol/L (22-29); Chloride 100 mmol/L (98-107); Glomerular Filtration Rate 158.3 mL/min (90-130); Glucose 160 mg/dL (65-115); Osmolality Calculated 286 mOsm/kg (285-295); Potassium 3.6 mmol/L (3.5-5.1); Sodium 137 mmol/L (136-145)
[2020-12-12] MEDS: oxyCODONE-APAP 5-325 mg Tablet PO ×4 (04:48→18:27)
[2020-12-12] MEDS: ALPRAZolam 0.25 mg Tablet PO ×2 (04:59→18:30)
--- NOTE | 2020-12-12 06:00 | XR_ITS ---
WS: [id number] PORTABLE CHEST HISTORY: Postop day #4 status post CABG/persistent right effusion: COMPARISON: 12/11/2011 Prior CABG. RIGHT central line with tip in the mid SVC. Single LEFT chest tube. Mildly hyperinflated lungs. Mild interstitial edema and fluid overload. Small bilateral pleural effus ions, RIGHT greater than LEFT. No pneumothorax. Cardiac size: Mildly enlarged cardiac silhouette. Mediastinum/Aorta: Mild atherosclerosis aorta. No osseous abnormality seen. XR/XR chest 1V portable [id number] IMPRESSION: 1. Single LEFT thoracostomy tube with no pneumothorax. 2. Persistent mild fluid overload or interstitial edema. 3. Small bilateral pleural effusions.
[2020-12-12] MEDS: levothyroxine 75 mcg Tablet 150 MCG PO (06:36)
--- NOTE | 2020-12-12 06:50 | P.PN_ITS ---
Subjective Subjective: Interval history: Postop day #4 status post CABG x3. Nice diuresis yesterday without intake and output of -2.5 L. Minimal chest tube output overnight. Surprisingly, there is been a slight drift down on the hemoglobin to 7.8. This is surprising given the negative fluid balance. Chest x-ray is otherwise stable though there is still a persistent right pleural effusion which I think would benefit from a right ultrasound-guided thoracentesis. Heart rate has been averaging in the mid 80s. Vital signs are otherwise stable. Postop discomfort is under better control. Vitals/I&O/Wt Last Vital Signs Temp 98.1 F 12/12/20 04:00 Pulse 88 12/12/20 04:00 Resp 21 H 12/12/20 04:48 BP 139/67 12/12/20 04:00 Pulse Ox 99 12/12/20 04:00 12/11/20 12/11/20 12/12/20 14:59 22:59 06:59 Intake Total 970 / 970 2811.5 / 3781.5 Output Total 3928 / 3928 2712 / 6640 Balance 970 / 970 -1116.5 / -146.5 -2712 / -2858.5 Weight last 48 hrs Weight 208 lb 4.8 oz Physical Exam Chest: COMMONS NORMALS: normal inspection of the chest (Dressings in place. Chest wall stable.) Resp: OTHER: Decreased breath sounds on the right consistent with right pleural effusion Cardio: COMMON NORMALS: regular rate, regular rhythm and S1 normal heart sound present RATE: regular rate RHYTHM: regular rhythm HEART SOUNDS: S1 normal heart sound present Extremity: OTHER: Decreasing lower extremity edema. Upper extremity edema resolved Urinary Catheter Management^: Garcia: Cath Placed During This Visit: yes Reason for Continuing Indwelling Catheter: Accurate Measurement of Urinary Output in Critically Ill Patients Urinary Catheter Date of Insertion: 12/08/20 Urinary Catheter Time of Insertion: 08:18 Data : 12/12/20 03:20 12/12/20 03:20 Micro: Microbiology 12/10/20 17:50 Blood Culture - Preliminary Blood NEGATIVE TO DATE 12/10/20 17:50 Blood Culture - Preliminary Blood NEGATIVE TO DATE A&P Assessment and plan (1) Status post aorto-coronary artery bypass graft: Postop day #4 status post CABG x3. Persistent right pleural effusion Plan: I will discontinue mediastinal and left pleural drain after ambulation this morning. I recommend an ultrasound-guided right thoracentesis. I will leave wound VAC dressing in place for another 2 days. I will be off service through the weekend. Greatly appreciate the expertise of our cardiology and hospitalist colleagues. Status: Acute Attestations Medical Necessity Statement*: Postop day #4 status post CABG Time Spent in Patient Care: 16 - 35 minutes Coding Level of Care Code Acute Maintenance Technician 3Rd Shift for Chg Fwd Diagnoses Status post aorto-coronary artery bypass graft Z95.1
--- NOTE | 2020-12-12 06:52 | US_ITS ---
WS: [id number] Chest ultrasound. Evaluate prior to thoracentesis. Request for RIGHT thoracentesis. There is only a very small effusion on the RIGHT. Probably less than 200 cc of pleural fluid. The LEFT pleural effusion was also evaluated and this is also small. At thi s time no thoracentesis will be performed. US/US chest [id number] IMPRESSION: No thoracentesis will be performed as the bilateral pleural effusions are very small, probably yielding less than 200 cc of fluid.
[2020-12-12 07:15] LABS: Glucose Point of Care 189 mg/dL (70-110)
--- NOTE | 2020-12-12 07:36 | PC.NURSE ---
resting quietly. awakens easily.
[2020-12-12] MEDS: ondansetron 2 mg/ML SDV 2 mL 4 MG IVP ×2 (07:50→17:28)
--- NOTE | 2020-12-12 08:14 | PC.NURSE ---
consent for thoracentesis,
[2020-12-12] MEDS: HYDROmorphone 1 mg/mL INJ 1 mL 0.5 MG IVP ×3 (08:28→22:01)
--- NOTE | 2020-12-12 10:26 | PC.NURSE ---
d/c home with per volunteer to surgical services entrance with instructions and to call with any questions
[2020-12-12] MEDS: amlodipine 5 mg Tablet PO (10:53)
[2020-12-12] MEDS: aspirin 81 mg Chew Tablet PO (10:54)
[2020-12-12] MEDS: metoprolol tartrate 25 mg Tablet PO ×2 (10:54→21:15)
--- NOTE | 2020-12-12 11:36 | PC.NURSE ---
dr. fregoso in this am. pacer wires chest tubes removed intact. p.t. in ambulated pt. around unit and to chair for about 40 min. back to bed. blanco hightower.
--- NOTE | 2020-12-12 12:10 | PM.PN ---
Subjective Subjective: Interval history: Patient was seen and examined, overall she is doing well. She has good urine output. Though LOS: +2.8 Ls .H/H has dropped to : 7.8/24.9 She has remained hemodynamically stable. Her other vitals and labs have been reviewed. Medications: Reviewed: Yes Medication Review Details: Current Medications Acetaminophen (Acetaminophen 325 Mg Tablet) 650 mg PO Q6H PRN PRN Reason: Mild/Mod Pain Or Temp >/= 101 Last Admin: 12/06/20 05:30 Dose: 650 mg Documented by: Acetaminophen (Acetaminophen 325 Mg Tablet) 650 mg PO Q6H PRN PRN Reason: MILD PAIN Hydrocodone Bitart/Acetaminophen (Hydrocodone-Acetaminophen 10-325 Mg Tablet) 1 tab PO Q6H PRN PRN Reason: Pain Last Admin: 12/07/20 23:20 Dose: 1 tab Documented by: Alprazolam (Alprazolam 0.25 Mg Tablet) 0.25 mg PO TID PRN PRN Reason: ANXIETY Last Admin: 12/12/20 04:59 Dose: 0.25 mg Documented by: Amlodipine Besylate (Amlodipine 5 Mg Tablet) 5 mg PO DAILY [facility] Last Admin: 12/12/20 10:53 Dose: 5 mg Documented by: Aspirin (Aspirin 325 Mg Ec Tablet) 325 mg PO DAILY [facility] Last Admin: 12/07/20 08:51 Dose: 325 mg Documented by: Aspirin (Aspirin 81 Mg Chew Tablet) 81 mg PO DAILY [facility] Last Admin: 12/12/20 10:54 Dose: 81 mg Documented by: Atorvastatin Calcium (Atorvastatin 40 Mg Tablet) 20 mg PO BEDTIME [facility] Last Admin: 12/11/20 21:22 Dose: 20 mg Documented by: Atropine Sulfate (Atropine 1 Mg/Ml Sdv 1 Ml) 0.5 mg IVP PRN PRN PRN Reason: Symptomatic bradycardia Baclofen (Baclofen 10 Mg Tablet) 10 mg PO BID PRN PRN Reason: Muscle Spasm Last Admin: 12/07/20 08:52 Dose: 10 mg Documented by: Chlorhexidine Gluconate (Chlorhexidine Gluconate 0.12% Btl 473 Ml) 15 ml MUCOUS MEM BID [facility] Last Admin: 12/07/20 17:17 Dose: 1 applic Documented by: Chlorhexidine Gluconate (Chlorhexidine Gluconate 4% Btl 118 Ml) 1 applic TOPICAL DAILY [facility] Last Admin: 12/07/20 17:18 Dose: 1 applic Documented by: Chlorhexidine Gluconate (Chlorhexidine Gluconate 0.12% Btl 473 Ml) 15 ml MUCOUS MEM BID [facility] Last Admin: 12/10/20 18:48 Dose: Not Given Documented by: Dextrose (Dextrose 50% Syringe 50 Ml) 50 ml IVP PRN PRN; Protocol PRN Reason: hypoglycemia protocol Dextrose (Dextrose 50% Syringe 50 Ml) 25 ml IVP ONCE PRN; Protocol PRN Reason: hypoglycemia protocol Dextrose (Dextrose 50% Syringe 50 Ml) 25 ml IVP ONCE PRN; Protocol PRN Reason: hypoglycemia protocol Dextrose (Dextrose 50% Syringe 50 Ml) 50 ml IVP PRN PRN; Protocol PRN Reason: hypoglycemia protocol Epinephrine (Racepinephrine 0.5 Ml Neb) 0.5 ml INHALATION Q6H.RESPIRATORY PRN PRN Reason: Stridor Fentanyl (Fentanyl 50 Mcg/Ml Inj 2ml) 50 mcg IVP Q1H PRN PRN Reason: SEVERE PAIN Last Admin: 12/11/20 05:17 Dose: 50 mcg Documented by: Glucagon (Glucagon 1 Mg/Ml Inj 1 Ml) 1 mg IM ONCE PRN; Protocol PRN Reason: Adult Acute Hypoglycemia Prot. Glucagon (Glucagon 1 Mg/Ml Inj 1 Ml) 1 mg IM ONCE PRN; Protocol PRN Reason: Adult Acute Hypoglycemia Prot Glucagon (Glucagon 1 Mg/Ml Inj 1 Ml) 1 mg IM ONCE PRN; Protocol PRN Reason: Adult Acute Hypoglycemia Prot. Heparin Sodium (Beef Lung) (Heparin 5,000 Unit/Ml Inj 1 Ml) 0 unit IV PRN PRN; Protocol PRN Reason: Heparin weight-base protocol Last Admin: 12/07/20 10:35 Dose: 42,000 unit Documented by: Hydralazine HCl (Hydralazine 20 Mg/Ml Inj 1 Ml) 5 mg IVP ONCE PRN PRN Reason: Systolic BP > 140 mmHg Hydromorphone HCl (Hydromorphone 1 Mg/Ml Inj 1 Ml) 0.5 mg IVP Q3H PRN PRN Reason: PAIN Last Admin: 12/12/20 08:28 Dose: 0.5 mg Documented by: Sodium Chloride (Sodium Chloride 0.9%) 1,000 mls @ 75 mls/hr IV .[id number] [facility] Last Admin: 12/07/20 17:17 Dose: 75 mls/hr Documented by: Nitroglycerin/Dextrose (Nitroglycerin Drip) 50 mg in 250 mls @ 0 mls/hr IV .Q0M RANDY; Protocol Last Titration: 12/08/20 17:19 Dose: Infused Documented by: Insulin Human Regular 250 unit (/ Sodium Chloride) 252.5 mls @ 0 mls/hr IV .Q0M RANDY; Protocol Last Titration: 12/08/20 17:19 Dose: Infused Documented by: Propofol (Diprivan) 1,000 mg in 100 mls @ 0 mls/hr IV .Q0M RANDY; Protocol Last Titration: 12/09/20 09:39 Dose: 15 mcg/kg/min, 7.6 mls/hr Documented by: Nitroglycerin/Dextrose (Nitroglycerin Drip) 50 mg in 250 mls @ 0 mls/hr IV .Q0M RANDY; Protocol Last Titration: 12/10/20 02:07 Dose: Infused Documented by: Albumin Human (Albumin) 12.5 gm in 250 mls @ 600 mls/hr IV PRN PRN PRN Reason: For CVP < 4 or SBP< 90 Last Infusion: 12/08/20 22:30 Dose: Infused Documented by: Sodium Nitroprusside 50 mg/ (Dextrose) 252 mls @ 0 mls/hr IV .Q0M RANDY; Protocol Labetalol HCl 300 mg/ Sodium (Chloride) 300 mls @ 30 mls/hr IV .Q10H PRN; Protocol PRN Reason: Systolic BP > 140 mmHg Dopamine HCl/Dextrose (Intropin Drip) 400 mg in 250 mls @ 15.93 mls/hr IV CONT PRN; Protocol PRN Reason: Hypotension Dobutamine HCl/Dextrose (Dobutamine Drip) 500 mg in 250 mls @ 0 mls/hr IV .Q0M PRN; Protocol PRN Reason: Cardiac Output Norepinephrine Bitartrate 4 mg (/ Dextrose) 254 mls @ 10.583 mls/hr IV .Q24H PRN; Protocol PRN Reason: HYPOTENSION Phenylephrine HCl 25 mg/ (Sodium Chloride) 252.5 mls @ 0 mls/hr IV .Q0M PRN; Protocol PRN Reason: HYPOTENSION Last Titration: 12/10/20 09:43 Dose: Infused Documented by: Dextrose (D5w) 500 mls @ 100 mls/hr IV ONCE PRN; Protocol PRN Reason: Adult Acute Hypoglycemia Prot Sodium Chloride (Sodium Chloride 0.9%) 1,000 mls @ 0 mls/hr IV .[id number] [facility] Last Admin: 12/11/20 16:51 Dose: 30 mls/hr Documented by: Dextrose (D5w) 500 mls @ 100 mls/hr IV ONCE PRN; Protocol PRN Reason: Adult Acute Hypoglycemia Prot Piperacillin Sod/Tazobactam (Sod 3.375 gm/ Sodium Chloride) 50 mls @ 12.5 mls/hr IV Q8H [facility]; Protocol Last Admin: 12/12/20 10:55 Dose: 12.5 mls/hr Documented by: Vancomycin/PEG/NADA/Lysine/Water (Vancocin) 1,250 mg in 250 mls @ 200 mls/hr IV Q8H [facility] Last Admin: 12/12/20 10:54 Dose: 150 mls/hr Documented by: Insulin Aspart (Insulin Aspart 100 Unit/1 Ml) 0 unit SUBCUT WM&BEDTIME [facility]; Protocol Last Admin: 12/12/20 11:58 Dose: 10 unit Documented by: Labetalol HCl (Labetalol 5 Mg/Ml Sdv 20ml) 10 mg IVP Q5M PRN PRN Reason: Systolic BP >140 mmHG Lanolin (Lanolin Oint 7 Gm) 1 applic TOPICAL PRN PRN PRN Reason: DRYNESS Lanolin (Lanolin Oint 7 Gm) 1 applic TOPICAL PRN PRN PRN Reason: DRYNESS Levothyroxine Sodium (Levothyroxine 75 Mcg Tablet) 150 mcg PO QAM [facility] Last Admin: 12/12/20 06:36 Dose: 150 mcg Documented by: Magnesium Hydroxide (Magnesium Hydroxide 30 Ml Udc) 30 ml PO DAILY PRN PRN Reason: CONSTIPATION Metoprolol Tartrate (Metoprolol Tartrate 25 Mg Tablet) 25 mg PO BID@0900,2100 [facility] Last Admin: 12/12/20 10:54 Dose: 25 mg Documented by: Midazolam HCl (Midazolam 1 Mg/Ml Inj 2 Ml) 1 mg IVP Q1H PRN PRN Reason: Sedation for Montoya score < 4. Last Admin: 12/09/20 02:03 Dose: 1 mg Documented by: Mupirocin (Mupirocin Oint 22 Gm) 1 applic NASAL BID [facility] Last Admin: 12/08/20 05:57 Dose: 1 applic Documented by: Naloxone HCl (Naloxone 0.4 Mg/Ml Sdv) 0.1 mg IVP Q2M PRN PRN Reason: RESPIRATORY RATE < 8/MIN Naloxone HCl (Naloxone 0.4 Mg/Ml Sdv) 0.1 mg IVP Q2M PRN PRN Reason: OPIATERV Nitroglycerin (Nitroglycerin 0.4 Mg Sublingual Tablet) 0.4 mg SUBLINGUAL Q5M PRN PRN Reason: CHEST PAIN Last Admin: 12/05/20 22:41 Dose: 1 tab Documented by: Ondansetron HCl (Ondansetron 2 Mg/Ml Sdv 2 Ml) 4 mg IVP Q8H PRN PRN Reason: vomiting, or N/V if npo Last Admin: 12/08/20 05:51 Dose: 4 mg Documented by: Ondansetron HCl (Ondansetron 2 Mg/Ml Sdv 2 Ml) 4 mg IVP Q6H PRN PRN Reason: NAUSEA Last Admin: 12/12/20 07:50 Dose: 4 mg Documented by: Oxycodone/Acetaminophen (Oxycodone-Apap 5-325 Mg Tablet) 1 - 2 tab PO Q4H PRN PRN Reason: MODERATE TO SEVERE PAIN Last Admin: 12/12/20 11:59 Dose: 2 tab Documented by: Pantoprazole Sodium (Pantoprazole Dr 40 Mg Tablet) 40 mg PO DAILY [facility] Last Admin: 12/07/20 08:51 Dose: 40 mg Documented by: Zolpidem Tartrate (Zolpidem 10 Mg Tablet) 10 mg PO BEDTIME PRN PRN Reason: Sleep Last Admin: 12/11/20 21:29 Dose: 10 mg Documented by: Vitals/I&O/Wt Last Vital Signs Temp 98.1 F 12/12/20 04:00 Pulse 87 12/12/20 06:00 Resp 20 H 12/12/20 11:59 BP 124/60 12/12/20 06:00 Pulse Ox 98 12/12/20 06:00 12/11/20 12/12/20 12/12/20 22:59 06:59 14:59 Intake Total 2811.5 / 3781.5 300 / 4081.5 Output Total 3928 / 3928 5788 / 6635 Balance -1116.5 / -146.5 -2412 / -2558.5 Weight last 48 hrs Weight 94.483 kg Physical Exam Const: COMMON NORMALS: patient oriented x3 HENMT: COMMON NORMALS: normocephalic, atraumatic, hearing grossly normal bilaterally and external ears normal HEAD & SCALP: normocephalic and atraumatic EXTERNAL EAR: Yes external ears normal Eye: COMMON NORMALS: no scleral icterus GENERAL EYE: appearance normal, both eyes and all related structures Chest: COMMONS NORMALS: normal inspection of the chest and normal palpation of entire chest wall CHEST: Yes Symmetrical chest wall rise OTHER: Surgical dressings in place.Support tubes in position. Resp: COMMON NORMALS: normal respiratory effort, No retractions and No use of accessory muscles EFFORT & INSPECTION: Yes symmetric chest movement OTHER: Minimal Basal Crackles Present,diminished breath sounds at bases rt>lt Cardio: COMMON NORMALS: regular rate, regular rhythm, S1 normal heart sound present, S2 normal heart sound present, No gallops present (Cardio), No murmurs present (Cardio), No rub (Cardio) and Peripheral pulses 2+ throughout RATE: regular rate RHYTHM: regular rhythm HEART SOUNDS: S1 normal heart sound present and S2 normal heart sound present PERIPHERAL PULSES: Peripheral pulses 2+ throughout GI: COMMON NORMALS: Normal to inspection, nondistended, normoactive bowel sounds present, Soft to palpation, non-tender, No hepatosplenomegaly present and no masses AUSCULTATION: Yes normoactive bowel sounds PALPATION: Yes Soft to palpation and Yes No hepatosplenomegaly present RECTAL EXAM: deferred Extremity: COMMON NORMALS: no clubbing, cyanosis or edema and no pedal edema Neuro: COMMON NORMALS: patient oriented x3 Urinary Catheter Management^: Garcia: Cath Placed During This Visit: yes Reason for Continuing Indwelling Catheter: Accurate Measurement of Urinary Output in Critically Ill Patients Urinary Catheter Date of Insertion: 12/08/20 Urinary Catheter Time of Insertion: 08:18 Data : 12/12/20 03:20 12/12/20 03:20 Micro: Microbiology 12/10/20 17:20 Urine Culture - Final Urine Catheterized 12/10/20 17:50 Blood Culture - Preliminary Blood NEGATIVE TO DATE 12/10/20 17:50 Blood Culture - Preliminary Blood NEGATIVE TO DATE A&P Assessment and plan (1) Non-ST elevation DC (NSTEMI): -Multivessel CAD -S/P : Coronary artery bypass grafting x3 utilizing in situ left internal mammary artery to the left anterior descending artery, reverse saphenous vein graft aorta to the diagonal artery, reverse saphenous vein graft aorta to the obtuse marginal branch of circumflex artery. -Continue aspirin, statin, beta-kj -Continue to monitor for chest pain, telemetry monitoring -Continue to monitor in ICU -Full code -Heparin for DVT prophylaxis, SCDs Status: Acute (2) Leukocytosis: WBC has trended up : to 15T FROM 10.2 now trending down Xray chest : Persistent mild fluid overload or interstitial edema.Small bilateral pleural effusions. Chest ultrasound.: Minimal Rt Pleural effusion < 200 cc Blood Culture:Negative urine culture: lactic acid:1 Procal:0.25 Will empirically cover with Van and Zosyn Status: Acute (3) Anemia: Normocytic Anemia H/H has dropped to 7.8/24.9 Status: Acute (4) UTI (urinary tract infection): urine culture :Negative Continue Abx as above Status: Acute (5) Transaminitis: Will monitor LFT Hepatitis panel HIV Status: Acute (6) Uncontrolled type 2 diabetes with neuropathy: Usually on insulin and glipizide Hemoglobin A1c 10.7 Hold Lantus Insulin sliding scale Status: Chronic (7) Hypothyroid: On levothyroxine Status: Acute Qualifiers: Hypothyroidism type: acquired Qualified Code(s): E03.9 - Hypothyroidism, unspecified (8) Hyperlipidemia: Not currently on treatment Status: Inactive (9) Fibromyalgia: On hydrocodone and prn baclofen Status: Acute Additional A&P Information GI prophylaxis Continue home pain management as needed medicines Supportive care otherwise Plans discussed with patient and she was given an opportunity to ask questions Full code Attestations Medical Necessity Statement*: Patient needs to be in hospital s/p CABG Coding Level of Care Code Acute Fruit Room Hand for Chg Fwd Diagnoses Non-ST elevation DC (NSTEMI) I21.4 Leukocytosis D72.829 Anemia D64.9 UTI (urinary tract infection) N39.0 Transaminitis R74.01 Uncontrolled type 2 diabetes with neuropathy E11.40; E11.65 Hypothyroid E03.9 Hypothyroidism type: acquired Hyperlipidemia E78.5 Fibromyalgia M79.7
--- NOTE | 2020-12-12 12:17 | PM.PN ---
Subjective Subjective: Interval history: Chest tube was discontinued today. No arrhythmias on the monitor. She is ambulating on telemetry with assistance. Vital signs remaining stable. No new symptoms. Medications: Reviewed: Yes Medication Review Details: Current Medications Acetaminophen (Acetaminophen 325 Mg Tablet) 650 mg PO Q6H PRN PRN Reason: Mild/Mod Pain Or Temp >/= 101 Last Admin: 12/06/20 05:30 Dose: 650 mg Documented by: Acetaminophen (Acetaminophen 325 Mg Tablet) 650 mg PO Q6H PRN PRN Reason: MILD PAIN Hydrocodone Bitart/Acetaminophen (Hydrocodone-Acetaminophen 10-325 Mg Tablet) 1 tab PO Q6H PRN PRN Reason: Pain Last Admin: 12/07/20 23:20 Dose: 1 tab Documented by: Alprazolam (Alprazolam 0.25 Mg Tablet) 0.25 mg PO TID PRN PRN Reason: ANXIETY Last Admin: 12/12/20 04:59 Dose: 0.25 mg Documented by: Amlodipine Besylate (Amlodipine 5 Mg Tablet) 5 mg PO DAILY [facility] Last Admin: 12/12/20 10:53 Dose: 5 mg Documented by: Aspirin (Aspirin 325 Mg Ec Tablet) 325 mg PO DAILY [facility] Last Admin: 12/07/20 08:51 Dose: 325 mg Documented by: Aspirin (Aspirin 81 Mg Chew Tablet) 81 mg PO DAILY [facility] Last Admin: 12/12/20 10:54 Dose: 81 mg Documented by: Atorvastatin Calcium (Atorvastatin 40 Mg Tablet) 20 mg PO BEDTIME [facility] Last Admin: 12/11/20 21:22 Dose: 20 mg Documented by: Atropine Sulfate (Atropine 1 Mg/Ml Sdv 1 Ml) 0.5 mg IVP PRN PRN PRN Reason: Symptomatic bradycardia Baclofen (Baclofen 10 Mg Tablet) 10 mg PO BID PRN PRN Reason: Muscle Spasm Last Admin: 12/07/20 08:52 Dose: 10 mg Documented by: Chlorhexidine Gluconate (Chlorhexidine Gluconate 0.12% Btl 473 Ml) 15 ml MUCOUS MEM BID [facility] Last Admin: 12/07/20 17:17 Dose: 1 applic Documented by: Chlorhexidine Gluconate (Chlorhexidine Gluconate 4% Btl 118 Ml) 1 applic TOPICAL DAILY [facility] Last Admin: 12/07/20 17:18 Dose: 1 applic Documented by: Chlorhexidine Gluconate (Chlorhexidine Gluconate 0.12% Btl 473 Ml) 15 ml MUCOUS MEM BID [facility] Last Admin: 12/10/20 18:48 Dose: Not Given Documented by: Dextrose (Dextrose 50% Syringe 50 Ml) 50 ml IVP PRN PRN; Protocol PRN Reason: hypoglycemia protocol Dextrose (Dextrose 50% Syringe 50 Ml) 25 ml IVP ONCE PRN; Protocol PRN Reason: hypoglycemia protocol Dextrose (Dextrose 50% Syringe 50 Ml) 25 ml IVP ONCE PRN; Protocol PRN Reason: hypoglycemia protocol Dextrose (Dextrose 50% Syringe 50 Ml) 50 ml IVP PRN PRN; Protocol PRN Reason: hypoglycemia protocol Epinephrine (Racepinephrine 0.5 Ml Neb) 0.5 ml INHALATION Q6H.RESPIRATORY PRN PRN Reason: Stridor Fentanyl (Fentanyl 50 Mcg/Ml Inj 2ml) 50 mcg IVP Q1H PRN PRN Reason: SEVERE PAIN Last Admin: 12/11/20 05:17 Dose: 50 mcg Documented by: Glucagon (Glucagon 1 Mg/Ml Inj 1 Ml) 1 mg IM ONCE PRN; Protocol PRN Reason: Adult Acute Hypoglycemia Prot. Glucagon (Glucagon 1 Mg/Ml Inj 1 Ml) 1 mg IM ONCE PRN; Protocol PRN Reason: Adult Acute Hypoglycemia Prot Glucagon (Glucagon 1 Mg/Ml Inj 1 Ml) 1 mg IM ONCE PRN; Protocol PRN Reason: Adult Acute Hypoglycemia Prot. Heparin Sodium (Beef Lung) (Heparin 5,000 Unit/Ml Inj 1 Ml) 0 unit IV PRN PRN; Protocol PRN Reason: Heparin weight-base protocol Last Admin: 12/07/20 10:35 Dose: 42,000 unit Documented by: Hydralazine HCl (Hydralazine 20 Mg/Ml Inj 1 Ml) 5 mg IVP ONCE PRN PRN Reason: Systolic BP > 140 mmHg Hydromorphone HCl (Hydromorphone 1 Mg/Ml Inj 1 Ml) 0.5 mg IVP Q3H PRN PRN Reason: PAIN Last Admin: 12/12/20 08:28 Dose: 0.5 mg Documented by: Sodium Chloride (Sodium Chloride 0.9%) 1,000 mls @ 75 mls/hr IV .[id number] [facility] Last Admin: 12/07/20 17:17 Dose: 75 mls/hr Documented by: Nitroglycerin/Dextrose (Nitroglycerin Drip) 50 mg in 250 mls @ 0 mls/hr IV .Q0M [facility]; Protocol Last Titration: 12/08/20 17:19 Dose: Infused Documented by: Insulin Human Regular 250 unit (/ Sodium Chloride) 252.5 mls @ 0 mls/hr IV .Q0M [facility]; Protocol Last Titration: 12/08/20 17:19 Dose: Infused Documented by: Propofol (Diprivan) 1,000 mg in 100 mls @ 0 mls/hr IV .Q0M [facility]; Protocol Last Titration: 12/09/20 09:39 Dose: 15 mcg/kg/min, 7.6 mls/hr Documented by: Nitroglycerin/Dextrose (Nitroglycerin Drip) 50 mg in 250 mls @ 0 mls/hr IV .Q0M [facility]; Protocol Last Titration: 12/10/20 02:07 Dose: Infused Documented by: Albumin Human (Albumin) 12.5 gm in 250 mls @ 600 mls/hr IV PRN PRN PRN Reason: For CVP < 4 or SBP< 90 Last Infusion: 12/08/20 22:30 Dose: Infused Documented by: Sodium Nitroprusside 50 mg/ (Dextrose) 252 mls @ 0 mls/hr IV .Q0M [facility]; Protocol Labetalol HCl 300 mg/ Sodium (Chloride) 300 mls @ 30 mls/hr IV .Q10H PRN; Protocol PRN Reason: Systolic BP > 140 mmHg Dopamine HCl/Dextrose (Intropin Drip) 400 mg in 250 mls @ 15.93 mls/hr IV CONT PRN; Protocol PRN Reason: Hypotension Dobutamine HCl/Dextrose (Dobutamine Drip) 500 mg in 250 mls @ 0 mls/hr IV .Q0M PRN; Protocol PRN Reason: Cardiac Output Norepinephrine Bitartrate 4 mg (/ Dextrose) 254 mls @ 10.583 mls/hr IV .Q24H PRN; Protocol PRN Reason: HYPOTENSION Phenylephrine HCl 25 mg/ (Sodium Chloride) 252.5 mls @ 0 mls/hr IV .Q0M PRN; Protocol PRN Reason: HYPOTENSION Last Titration: 12/10/20 09:43 Dose: Infused Documented by: Dextrose (D5w) 500 mls @ 100 mls/hr IV ONCE PRN; Protocol PRN Reason: Adult Acute Hypoglycemia Prot Sodium Chloride (Sodium Chloride 0.9%) 1,000 mls @ 0 mls/hr IV .[id number] [facility] Last Admin: 12/11/20 16:51 Dose: 30 mls/hr Documented by: Dextrose (D5w) 500 mls @ 100 mls/hr IV ONCE PRN; Protocol PRN Reason: Adult Acute Hypoglycemia Prot Piperacillin Sod/Tazobactam (Sod 3.375 gm/ Sodium Chloride) 50 mls @ 12.5 mls/hr IV Q8H [facility]; Protocol Last Admin: 12/12/20 10:55 Dose: 12.5 mls/hr Documented by: Vancomycin/PEG/NADA/Lysine/Water (Vancocin) 1,250 mg in 250 mls @ 200 mls/hr IV Q8H [facility] Last Admin: 12/12/20 10:54 Dose: 150 mls/hr Documented by: Insulin Aspart (Insulin Aspart 100 Unit/1 Ml) 0 unit SUBCUT WM&BEDTIME [facility]; Protocol Last Admin: 12/12/20 11:58 Dose: 10 unit Documented by: Labetalol HCl (Labetalol 5 Mg/Ml Sdv 20ml) 10 mg IVP Q5M PRN PRN Reason: Systolic BP >140 mmHG Lanolin (Lanolin Oint 7 Gm) 1 applic TOPICAL PRN PRN PRN Reason: DRYNESS Lanolin (Lanolin Oint 7 Gm) 1 applic TOPICAL PRN PRN PRN Reason: DRYNESS Levothyroxine Sodium (Levothyroxine 75 Mcg Tablet) 150 mcg PO QAM [facility] Last Admin: 12/12/20 06:36 Dose: 150 mcg Documented by: Magnesium Hydroxide (Magnesium Hydroxide 30 Ml Udc) 30 ml PO DAILY PRN PRN Reason: CONSTIPATION Metoprolol Tartrate (Metoprolol Tartrate 25 Mg Tablet) 25 mg PO BID@0900,2100 [facility] Last Admin: 12/12/20 10:54 Dose: 25 mg Documented by: Midazolam HCl (Midazolam 1 Mg/Ml Inj 2 Ml) 1 mg IVP Q1H PRN PRN Reason: Sedation for Montoya score < 4. Last Admin: 12/09/20 02:03 Dose: 1 mg Documented by: Mupirocin (Mupirocin Oint 22 Gm) 1 applic NASAL BID [facility] Last Admin: 12/08/20 05:57 Dose: 1 applic Documented by: Naloxone HCl (Naloxone 0.4 Mg/Ml Sdv) 0.1 mg IVP Q2M PRN PRN Reason: RESPIRATORY RATE < 8/MIN Naloxone HCl (Naloxone 0.4 Mg/Ml Sdv) 0.1 mg IVP Q2M PRN PRN Reason: OPIATERV Nitroglycerin (Nitroglycerin 0.4 Mg Sublingual Tablet) 0.4 mg SUBLINGUAL Q5M PRN PRN Reason: CHEST PAIN Last Admin: 12/05/20 22:41 Dose: 1 tab Documented by: Ondansetron HCl (Ondansetron 2 Mg/Ml Sdv 2 Ml) 4 mg IVP Q8H PRN PRN Reason: vomiting, or N/V if npo Last Admin: 12/08/20 05:51 Dose: 4 mg Documented by: Ondansetron HCl (Ondansetron 2 Mg/Ml Sdv 2 Ml) 4 mg IVP Q6H PRN PRN Reason: NAUSEA Last Admin: 12/12/20 07:50 Dose: 4 mg Documented by: Oxycodone/Acetaminophen (Oxycodone-Apap 5-325 Mg Tablet) 1 - 2 tab PO Q4H PRN PRN Reason: MODERATE TO SEVERE PAIN Last Admin: 12/12/20 11:59 Dose: 2 tab Documented by: Pantoprazole Sodium (Pantoprazole Dr 40 Mg Tablet) 40 mg PO DAILY [facility] Last Admin: 12/07/20 08:51 Dose: 40 mg Documented by: Zolpidem Tartrate (Zolpidem 10 Mg Tablet) 10 mg PO BEDTIME PRN PRN Reason: Sleep Last Admin: 12/11/20 21:29 Dose: 10 mg Documented by: Vitals/I&O/Wt Last Vital Signs Temp 98.1 F 12/12/20 04:00 Pulse 87 12/12/20 06:00 Resp 20 H 12/12/20 11:59 BP 124/60 12/12/20 06:00 Pulse Ox 98 12/12/20 06:00 12/11/20 12/12/20 12/12/20 22:59 06:59 14:59 Intake Total 2811.5 / 3781.5 300 / 4081.5 Output Total 3928 / 3928 2712 / 6627 Balance -1116.5 / -146.5 -2412 / -2558.5 Weight last 48 hrs Weight 208 lb 4.8 oz Physical Exam Narrative: EXAM NARRATIVE: GENERAL: The patient is alert and oriented x3 HEENT: No significant pallor, icterus or lymphadenopathy. Oral cavity: There are no mucous membrane lesions. NECK: Trachea appears to be central. No JVD. No bleeding at the catheter sites. RESPIRATORY: Breath sounds are heard bilaterally with no rales. Slightly diminished breath sounds in the bases. BREASTS: Deferred. HEART: Heart sounds are normal. No S3. No significant murmurs. No pericardial rub ABDOMEN: Bowel sounds are normally heard. No abdominal distention. : Deferred. RECTAL: Deferred. LYMPHATIC: No lymphadenopathy noted in the neck or groin. EXTREMITIES: Trace edema with no cyanosis. MUSCULOSKELETAL: No acute joint deformities or swelling SKIN: T no rashes or ecchymosis. NEUROPSYCHIATRIC: No focal motor deficits. Const: COMMON NORMALS: alert Resp: COMMON NORMALS: clear to auscultation bilaterally AUSCULTATION: clear to auscultation bilaterally Neuro: SENSORIUM/ORIENTATION: Yes alert Urinary Catheter Management^: Garcia: Cath Placed During This Visit: yes Reason for Continuing Indwelling Catheter: Accurate Measurement of Urinary Output in Critically Ill Patients Urinary Catheter Date of Insertion: 12/08/20 Urinary Catheter Time of Insertion: 08:18 Data : 12/12/20 03:20 12/12/20 03:20 Micro: Microbiology 12/10/20 17:20 Urine Culture - Final Urine Catheterized 12/10/20 17:50 Blood Culture - Preliminary Blood NEGATIVE TO DATE 12/10/20 17:50 Blood Culture - Preliminary Blood NEGATIVE TO DATE A&P Assessment and plan (1) Atherosclerotic heart disease of [place] coronary artery without angina pectoris: In view of the patient's history of a non-ST relation myocardial infarction, I may go ahead and start her on Plavix 75 mg now and daily. May continue other medications as the days Status: Acute Qualifiers: [place] vs. transplanted heart: [place] heart Qualified Code(s): I25.10 - Atherosclerotic heart disease of [place] coronary artery without angina pectoris (2) Status post aorto-coronary artery bypass graft: Patient seems recuperating well. Continue the phase 2 rehab exercise Status: Acute (3) Dyslipidemia (high LDL; low HDL): Continue on the current medication. Status: Acute (4) Uncontrolled type 2 diabetes with neuropathy: Management as per the primary Status: Chronic (5) Hypothyroid: Continue on the current medication. Status: Acute Qualifiers: Hypothyroidism type: acquired Qualified Code(s): E03.9 - Hypothyroidism, unspecified Additional A&P Information Based on the clinical progress, further management decisions will be made. Possible transfer to telemetry this afternoon or in the morning Attestations Medical Necessity Statement*: Patient requires continued hospital stay for close monitoring and further management Coding Level of Care Code Acute Clinical Quality Analyst for Dev Flood Diagnoses Atherosclerotic heart disease of [place] coronary artery without angina pectoris I25.10 [place] vs. transplanted heart: [place] heart Status post aorto-coronary artery bypass graft Z95.1 Dyslipidemia (high LDL; low HDL) E78.5 Uncontrolled type 2 diabetes with neuropathy E11.40; E11.65 Hypothyroid E03.9 Hypothyroidism type: acquired
[2020-12-12] MEDS: clopidogrel 75 mg Tablet PO (13:35)
[2020-12-12 17:40] LABS: Glucose Point of Care 232 mg/dL (70-110)
[2020-12-12 17:40] LABS: Glucose Point of Care 249 mg/dL (70-110)
[2020-12-12] MEDS: atorvastatin 40 mg Tablet 20 MG PO (21:14)
[2020-12-12 21:20] LABS: Glucose Point of Care 167 mg/dL (70-110)
[2020-12-13] VITALS (30 sets, daily range): BP systolic 94–154; BP diastolic 43–93; PULSE 68–90; RESP 12–25; TEMP 36.7–37.2; O2SAT 93–100
--- NOTE | 2020-12-13 00:30 | PC.NURSE ---
Bladder scanner 175ml
[2020-12-13] MEDS: vancomycin 1,250 MG/250 ML PIGGYBACK 200 MG IV ×2 (02:39→12:21)
[2020-12-13] MEDS: piperacillin-tazobactam 3.375 GM in sodium chloride 0.9% (plus) 50 ML IV ×3 (02:39→17:55)
[2020-12-13] MEDS: oxyCODONE-APAP 5-325 mg Tablet PO ×5 (02:39→20:45)
[2020-12-13 04:30] LABS: Basophils % 0.4 %; Eosinophils # 0.4 10^3/uL (0.0-0.8); Eosinophils % 4.4 %; Hematocrit 24.5 % (37.0-47.0); Hemoglobin 7.8 g/dL (11.5-15.3); Lymphocytes # 1.6 10^3/uL (0.8-4.8); Lymphocytes % 17.2 %; Mean Corpuscular HGB Conc 31.8 g/dL (30.0-36.0); Mean Corpuscular Hemoglobin 29.7 pg (28.0-34.0); Mean Corpuscular Volume 93.2 fL (81-99); Mean Platelet Volume 9.6 fL (7.4-10.4); Monocytes # 1.1 10^3/uL (0.2-0.9); Monocytes % 12.1 %; Neutrophils % 65.2 %; Nucleated Red Blood Cells % 0 %; Platelet Count 254 10^3/cmm (130-400); Red Blood Count 2.63 10^6/uL (4.1-5.3); Red Cell Distribution Width 12.6 % (12.1-15.1); White Blood Count 9.2 10^3/uL (4.0-10.0)
[2020-12-13 05:06] LABS: Alanine Aminotransferase 24 U/L (0-33); Albumin Level 2.6 g/dL (3.5-5.2); Alkaline Phosphatase 184 IU/L (35-105); Anion Gap 10.7 (5-19); Aspartate Amino Transferase 12 U/L (0-32); Blood Urea Nitrogen 10 mg/dL (8-23); Calcium 8.7 mg/dL (8.5-10.5); Carbon Dioxide 28 mmol/L (22-29); Chloride 99 mmol/L (98-107); Globulin 2.5 g/dL (1.3-4.6); Glomerular Filtration Rate 158.3 mL/min (90-130); Glucose 122 mg/dL (65-115); Magnesium 1.4 mg/dL (1.7-2.3); Osmolality Calculated 278 mOsm/kg (285-295); Phosphorus 3.7 mg/dL (2.5-4.5); Potassium 3.7 mmol/L (3.5-5.1); Sodium 134 mmol/L (136-145); Total Bilirubin 0.5 mg/dL (0.15-1.2); Total Protein 5.1 g/dL (6.6-8.7)
[2020-12-13] MEDS: levothyroxine 75 mcg Tablet 150 MCG PO (05:17)
[2020-12-13 08:07] LABS: Glucose Point of Care 130 mg/dL (70-110)
[2020-12-13] MEDS: amlodipine 5 mg Tablet PO (08:44)
[2020-12-13] MEDS: aspirin 81 mg Chew Tablet PO (08:44)
[2020-12-13] MEDS: clopidogrel 75 mg Tablet PO (08:44)
[2020-12-13] MEDS: metoprolol tartrate 25 mg Tablet PO ×2 (08:45→20:20)
--- NOTE | 2020-12-13 09:12 | P.PN_ITS ---
Subjective Subjective: Interval history: Over all she is doing good,has participated in physical therapy.She ahs remained afebrile, with good urine output.Deny any cough, nausea,vomiting. Her other vitals and labs have been reviewed. Medications: Reviewed: Yes Medication Review Details: Current Medications Acetaminophen (Acetaminophen 325 Mg Tablet) 650 mg PO Q6H PRN PRN Reason: Mild/Mod Pain Or Temp >/= 101 Last Admin: 12/06/20 05:30 Dose: 650 mg Documented by: Acetaminophen (Acetaminophen 325 Mg Tablet) 650 mg PO Q6H PRN PRN Reason: MILD PAIN Hydrocodone Bitart/Acetaminophen (Hydrocodone-Acetaminophen 10-325 Mg Tablet) 1 tab PO Q6H PRN PRN Reason: Pain Last Admin: 12/07/20 23:20 Dose: 1 tab Documented by: Alprazolam (Alprazolam 0.25 Mg Tablet) 0.25 mg PO TID PRN PRN Reason: ANXIETY Last Admin: 12/12/20 04:59 Dose: 0.25 mg Documented by: Amlodipine Besylate (Amlodipine 5 Mg Tablet) 5 mg PO DAILY [facility] Last Admin: 12/12/20 10:53 Dose: 5 mg Documented by: Aspirin (Aspirin 325 Mg Ec Tablet) 325 mg PO DAILY [facility] Last Admin: 12/07/20 08:51 Dose: 325 mg Documented by: Aspirin (Aspirin 81 Mg Chew Tablet) 81 mg PO DAILY [facility] Last Admin: 12/12/20 10:54 Dose: 81 mg Documented by: Atorvastatin Calcium (Atorvastatin 40 Mg Tablet) 20 mg PO BEDTIME [facility] Last Admin: 12/11/20 21:22 Dose: 20 mg Documented by: Atropine Sulfate (Atropine 1 Mg/Ml Sdv 1 Ml) 0.5 mg IVP PRN PRN PRN Reason: Symptomatic bradycardia Baclofen (Baclofen 10 Mg Tablet) 10 mg PO BID PRN PRN Reason: Muscle Spasm Last Admin: 12/07/20 08:52 Dose: 10 mg Documented by: Chlorhexidine Gluconate (Chlorhexidine Gluconate 0.12% Btl 473 Ml) 15 ml MUCOUS MEM BID [facility] Last Admin: 12/07/20 17:17 Dose: 1 applic Documented by: Chlorhexidine Gluconate (Chlorhexidine Gluconate 4% Btl 118 Ml) 1 applic TOPICAL DAILY [facility] Last Admin: 12/07/20 17:18 Dose: 1 applic Documented by: Chlorhexidine Gluconate (Chlorhexidine Gluconate 0.12% Btl 473 Ml) 15 ml MUCOUS MEM BID [facility] Last Admin: 12/10/20 18:48 Dose: Not Given Documented by: Dextrose (Dextrose 50% Syringe 50 Ml) 50 ml IVP PRN PRN; Protocol PRN Reason: hypoglycemia protocol Dextrose (Dextrose 50% Syringe 50 Ml) 25 ml IVP ONCE PRN; Protocol PRN Reason: hypoglycemia protocol Dextrose (Dextrose 50% Syringe 50 Ml) 25 ml IVP ONCE PRN; Protocol PRN Reason: hypoglycemia protocol Dextrose (Dextrose 50% Syringe 50 Ml) 50 ml IVP PRN PRN; Protocol PRN Reason: hypoglycemia protocol Epinephrine (Racepinephrine 0.5 Ml Neb) 0.5 ml INHALATION Q6H.RESPIRATORY PRN PRN Reason: Stridor Fentanyl (Fentanyl 50 Mcg/Ml Inj 2ml) 50 mcg IVP Q1H PRN PRN Reason: SEVERE PAIN Last Admin: 12/11/20 05:17 Dose: 50 mcg Documented by: Glucagon (Glucagon 1 Mg/Ml Inj 1 Ml) 1 mg IM ONCE PRN; Protocol PRN Reason: Adult Acute Hypoglycemia Prot. Glucagon (Glucagon 1 Mg/Ml Inj 1 Ml) 1 mg IM ONCE PRN; Protocol PRN Reason: Adult Acute Hypoglycemia Prot Glucagon (Glucagon 1 Mg/Ml Inj 1 Ml) 1 mg IM ONCE PRN; Protocol PRN Reason: Adult Acute Hypoglycemia Prot. Heparin Sodium (Beef Lung) (Heparin 5,000 Unit/Ml Inj 1 Ml) 0 unit IV PRN PRN; Protocol PRN Reason: Heparin weight-base protocol Last Admin: 12/07/20 10:35 Dose: 42,000 unit Documented by: Hydralazine HCl (Hydralazine 20 Mg/Ml Inj 1 Ml) 5 mg IVP ONCE PRN PRN Reason: Systolic BP > 140 mmHg Hydromorphone HCl (Hydromorphone 1 Mg/Ml Inj 1 Ml) 0.5 mg IVP Q3H PRN PRN Reason: PAIN Last Admin: 12/12/20 08:28 Dose: 0.5 mg Documented by: Sodium Chloride (Sodium Chloride 0.9%) 1,000 mls @ 75 mls/hr IV .[id number] [facility] Last Admin: 12/07/20 17:17 Dose: 75 mls/hr Documented by: Nitroglycerin/Dextrose (Nitroglycerin Drip) 50 mg in 250 mls @ 0 mls/hr IV .Q0M [facility]; Protocol Last Titration: 12/08/20 17:19 Dose: Infused Documented by: Insulin Human Regular 250 unit (/ Sodium Chloride) 252.5 mls @ 0 mls/hr IV .Q0M [facility]; Protocol Last Titration: 12/08/20 17:19 Dose: Infused Documented by: Propofol (Diprivan) 1,000 mg in 100 mls @ 0 mls/hr IV .Q0M [facility]; Protocol Last Titration: 12/09/20 09:39 Dose: 15 mcg/kg/min, 7.6 mls/hr Documented by: Nitroglycerin/Dextrose (Nitroglycerin Drip) 50 mg in 250 mls @ 0 mls/hr IV .Q0M [facility]; Protocol Last Titration: 12/10/20 02:07 Dose: Infused Documented by: Albumin Human (Albumin) 12.5 gm in 250 mls @ 600 mls/hr IV PRN PRN PRN Reason: For CVP < 4 or SBP< 90 Last Infusion: 12/08/20 22:30 Dose: Infused Documented by: Sodium Nitroprusside 50 mg/ (Dextrose) 252 mls @ 0 mls/hr IV .Q0M [facility]; Protocol Labetalol HCl 300 mg/ Sodium (Chloride) 300 mls @ 30 mls/hr IV .Q10H PRN; Protocol PRN Reason: Systolic BP > 140 mmHg Dopamine HCl/Dextrose (Intropin Drip) 400 mg in 250 mls @ 15.93 mls/hr IV CONT PRN; Protocol PRN Reason: Hypotension Dobutamine HCl/Dextrose (Dobutamine Drip) 500 mg in 250 mls @ 0 mls/hr IV .Q0M PRN; Protocol PRN Reason: Cardiac Output Norepinephrine Bitartrate 4 mg (/ Dextrose) 254 mls @ 10.583 mls/hr IV .Q24H PRN; Protocol PRN Reason: HYPOTENSION Phenylephrine HCl 25 mg/ (Sodium Chloride) 252.5 mls @ 0 mls/hr IV .Q0M PRN; Protocol PRN Reason: HYPOTENSION Last Titration: 12/10/20 09:43 Dose: Infused Documented by: Dextrose (D5w) 500 mls @ 100 mls/hr IV ONCE PRN; Protocol PRN Reason: Adult Acute Hypoglycemia Prot Sodium Chloride (Sodium Chloride 0.9%) 1,000 mls @ 0 mls/hr IV .[id number] [facility] Last Admin: 12/11/20 16:51 Dose: 30 mls/hr Documented by: Dextrose (D5w) 500 mls @ 100 mls/hr IV ONCE PRN; Protocol PRN Reason: Adult Acute Hypoglycemia Prot Piperacillin Sod/Tazobactam (Sod 3.375 gm/ Sodium Chloride) 50 mls @ 12.5 mls/hr IV Q8H [facility]; Protocol Last Admin: 12/12/20 10:55 Dose: 12.5 mls/hr Documented by: Vancomycin/PEG/NADA/Lysine/Water (Vancocin) 1,250 mg in 250 mls @ 200 mls/hr IV Q8H [facility] Last Admin: 12/12/20 10:54 Dose: 150 mls/hr Documented by: Insulin Aspart (Insulin Aspart 100 Unit/1 Ml) 0 unit SUBCUT WM&BEDTIME [facility]; P rotocol Last Admin: 12/12/20 11:58 Dose: 10 unit Documented by: Labetalol HCl (Labetalol 5 Mg/Ml Sdv 20ml) 10 mg IVP Q5M PRN PRN Reason: Systolic BP >140 mmHG Lanolin (Lanolin Oint 7 Gm) 1 applic TOPICAL PRN PRN PRN Reason: DRYNESS Lanolin (Lanolin Oint 7 Gm) 1 applic TOPICAL PRN PRN PRN Reason: DRYNESS Levothyroxine Sodium (Levothyroxine 75 Mcg Tablet) 150 mcg PO QAM [facility] Last Admin: 12/12/20 06:36 Dose: 150 mcg Documented by: Magnesium Hydroxide (Magnesium Hydroxide 30 Ml Udc) 30 ml PO DAILY PRN PRN Reason: CONSTIPATION Metoprolol Tartrate (Metoprolol Tartrate 25 Mg Tablet) 25 mg PO BID@0900,2100 [facility] Last Admin: 12/12/20 10:54 Dose: 25 mg Documented by: Midazolam HCl (Midazolam 1 Mg/Ml Inj 2 Ml) 1 mg IVP Q1H PRN PRN Reason: Sedation for Montoya score < 4. Last Admin: 12/09/20 02:03 Dose: 1 mg Documented by: Mupirocin (Mupirocin Oint 22 Gm) 1 applic NASAL BID [facility] Last Admin: 12/08/20 05:57 Dose: 1 applic Documented by: Naloxone HCl (Naloxone 0.4 Mg/Ml Sdv) 0.1 mg IVP Q2M PRN PRN Reason: RESPIRATORY RATE < 8/MIN Naloxone HCl (Naloxone 0.4 Mg/Ml Sdv) 0.1 mg IVP Q2M PRN PRN Reason: OPIATERV Nitroglycerin (Nitroglycerin 0.4 Mg Sublingual Tablet) 0.4 mg SUBLINGUAL Q5M PRN PRN Reason: CHEST PAIN Last Admin: 12/05/20 22:41 Dose: 1 tab Documented by: Ondansetron HCl (Ondansetron 2 Mg/Ml Sdv 2 Ml) 4 mg IVP Q8H PRN PRN Reason: vomiting, or N/V if npo Last Admin: 12/08/20 05:51 Dose: 4 mg Documented by: Ondansetron HCl (Ondansetron 2 Mg/Ml Sdv 2 Ml) 4 mg IVP Q6H PRN PRN Reason: NAUSEA Last Admin: 12/12/20 07:50 Dose: 4 mg Documented by: Oxycodone/Acetaminophen (Oxycodone-Apap 5-325 Mg Tablet) 1 - 2 tab PO Q4H PRN PRN Reason: MODERATE TO SEVERE PAIN Last Admin: 12/12/20 11:59 Dose: 2 tab Documented by: Pantoprazole Sodium (Pantoprazole Dr 40 Mg Tablet) 40 mg PO DAILY [facility] Last Admin: 12/07/20 08:51 Dose: 40 mg Documented by: Zolpidem Tartrate (Zolpidem 10 Mg Tablet) 10 mg PO BEDTIME PRN PRN Reason: Sleep Last Admin: 12/11/20 21:29 Dose: 10 mg Documented by: Vitals/I&O/Wt Last Vital Signs Temp 98.7 F 12/13/20 04:00 Pulse 87 12/13/20 09:05 Resp 20 H 12/13/20 08:30 BP 125/70 12/13/20 07:00 Pulse Ox 95 12/13/20 09:05 12/12/20 12/13/20 12/13/20 22:59 06:59 14:59 Intake Total 770 / 1160 300 / 300 Output Total 200 / 200 225 / 425 Balance 570 / 960 -225 / 735 300 / 300 Weight last 48 hrs Weight 94.483 kg Physical Exam Const: COMMON NORMALS: patient oriented x3 HENMT: COMMON NORMALS: normocephalic and atraumatic HEAD & SCALP: normocephalic and atraumatic Chest: COMMONS NORMALS: normal inspection of the chest and normal palpation of entire chest wall CHEST: Yes Symmetrical chest wall rise OTHER: Surgical dressings in place. Resp: COMMON NORMALS: normal respiratory effort, No retractions and No use of accessory muscles EFFORT & INSPECTION: Yes symmetric chest movement OTHER: Clear to ascultation B/L Cardio: COMMON NORMALS: regular rate, regular rhythm, S1 normal heart sound present, S2 normal heart sound present, No gallops present (Cardio), No murmurs present (Cardio), No rub (Cardio) and Peripheral pulses 2+ throughout RATE: regular rate RHYTHM: regular rhythm HEART SOUNDS: S1 normal heart sound present and S2 normal heart sound present PERIPHERAL PULSES: Peripheral pulses 2+ throughout GI: COMMON NORMALS: Normal to inspection, nondistended, normoactive bowel sounds present, Soft to palpation, non-tender, No hepatosplenomegaly present and no masses AUSCULTATION: Yes normoactive bowel sounds PALPATION: Yes Soft to palpation and Yes No hepatosplenomegaly present RECTAL EXAM: deferred Extremity: COMMON NORMALS: no clubbing, cyanosis or edema and no pedal edema Neuro: COMMON NORMALS: patient oriented x3 Urinary Catheter Management^: Garcia: Cath Placed During This Visit: yes, but has since been removed by the nurse Reason for Continuing Indwelling Catheter: Accurate Measurement of Urinary Output in Critically Ill Patients Urinary Catheter Date of Insertion: 12/08/20 Urinary Catheter Time of Insertion: 08:18 Date Urinary Catheter Removed: 12/12/20 Time Urinary Catheter Discontinued: 15:00 Data : 12/13/20 04:14 12/13/20 04:14 Micro: Microbiology 12/10/20 17:20 Urine Culture - Final Urine Catheterized A&P Assessment and plan (1) Non-ST elevation ID (NSTEMI): -Multivessel CAD -S/P : Coronary artery bypass grafting x3 utilizing in situ left internal mammary artery to the left anterior descending artery, reverse saphenous vein graft aorta to the diagonal artery, reverse saphenous vein graft aorta to the obtuse marginal branch of circumflex artery. -Continue aspirin, statin, beta-kj -Continue to monitor for chest pain, telemetry monitoring -Continue to monitor in ICU -Full code -Heparin for DVT prophylaxis, SCDs Status: Acute (2) Leukocytosis: WBC has trended up : to 15T FROM 10.2 now trending down Xray chest : Persistent mild fluid overload or interstitial edema.Small bilateral pleural effusions. Chest ultrasound.: Minimal Rt Pleural effusion < 200 cc Blood Culture:Negative urine culture:Negative Sputum Cul; MODERATE MIXED UPPER RESPIRATORY IVAN lactic acid:1 Procal:0.25 Was empirically covered with Van and Zosyn. Vancomycin was DC on 12/13. Status: Acute (3) Anemia: Normocytic Anemia H/H is stable 7.8/24.9 Status: Acute (4) UTI (urinary tract infection): urine culture :Negative Continue Abx as above Status: Acute (5) Transaminitis: Will monitor LFT Hepatitis panel HIV Status: Acute (6) Uncontrolled type 2 diabetes with neuropathy: Usually on insulin and glipizide Hemoglobin A1c 10.7 Hold Lantus Insulin sliding scale Status: Chronic (7) Hypothyroid: On levothyroxine Status: Acute Qualifiers: Hypothyroidism type: acquired Qualified Code(s): E03.9 - Hypothyroidism, unspecified (8) Hyperlipidemia: Not currently on treatment Status: Inactive (9) Fibromyalgia: On hydrocodone and prn baclofen Status: Acute Additional A&P Information GI prophylaxis Continue home pain management as needed medicines Supportive care otherwise Plans discussed with patient and she was given an opportunity to ask questions Full code Attestations Medical Necessity Statement*: Patient needs to be in hospital S/P CABG Coding Level of Care Code Acute Upper Tier for Chg Fwd Diagnoses Non-ST elevation ID (NSTEMI) I21.4 Leukocytosis D72.829 Anemia D64.9 UTI (urinary tract infection) N39.0 Transaminitis R74.01 Uncontrolled type 2 diabetes with neuropathy E11.40; E11.65 Hypothyroid E03.9 Hypothyroidism type: acquired Hyperlipidemia E78.5 Fibromyalgia M79.7
--- NOTE | 2020-12-13 10:15 | PC.SOCIAL ---
IMM update Pg. 2 of IMM updated and reviewed with patient, who verbalized understanding. Copy provided.
[2020-12-13 12:42] LABS: Glucose Point of Care 203 mg/dL (70-110)
[2020-12-13] MEDS: ondansetron 2 mg/ML SDV 2 mL 4 MG IVP (16:25)
[2020-12-13] MEDS: sodium chloride 0.9% 1,000 ML 30 ML IV (16:59)
--- NOTE | 2020-12-13 17:31 | PM.PN ---
Subjective Subjective: Interval history: Status post CABG chest tubes out since yesterday stable vital henry today she walked without physical therapy urine output is good. Overall feeling better Medications: Reviewed: Yes Medication Review Details: Current Medications Acetaminophen (Acetaminophen 325 Mg Tablet) 650 mg PO Q6H PRN PRN Reason: Mild/Mod Pain Or Temp >/= 101 Last Admin: 12/06/20 05:30 Dose: 650 mg Documented by: Acetaminophen (Acetaminophen 325 Mg Tablet) 650 mg PO Q6H PRN PRN Reason: MILD PAIN Hydrocodone Bitart/Acetaminophen (Hydrocodone-Acetaminophen 10-325 Mg Tablet) 1 tab PO Q6H PRN PRN Reason: Pain Last Admin: 12/07/20 23:20 Dose: 1 tab Documented by: Alprazolam (Alprazolam 0.25 Mg Tablet) 0.25 mg PO TID PRN PRN Reason: ANXIETY Last Admin: 12/12/20 04:59 Dose: 0.25 mg Documented by: Amlodipine Besylate (Amlodipine 5 Mg Tablet) 5 mg PO DAILY [facility] Last Admin: 12/12/20 10:53 Dose: 5 mg Documented by: Aspirin (Aspirin 325 Mg Ec Tablet) 325 mg PO DAILY [facility] Last Admin: 12/07/20 08:51 Dose: 325 mg Documented by: Aspirin (Aspirin 81 Mg Chew Tablet) 81 mg PO DAILY [facility] Last Admin: 12/12/20 10:54 Dose: 81 mg Documented by: Atorvastatin Calcium (Atorvastatin 40 Mg Tablet) 20 mg PO BEDTIME [facility] Last Admin: 12/11/20 21:22 Dose: 20 mg Documented by: Atropine Sulfate (Atropine 1 Mg/Ml Sdv 1 Ml) 0.5 mg IVP PRN PRN PRN Reason: Symptomatic bradycardia Baclofen (Baclofen 10 Mg Tablet) 10 mg PO BID PRN PRN Reason: Muscle Spasm Last Admin: 12/07/20 08:52 Dose: 10 mg Documented by: Chlorhexidine Gluconate (Chlorhexidine Gluconate 0.12% Btl 473 Ml) 15 ml MUCOUS MEM BID [facility] Last Admin: 12/07/20 17:17 Dose: 1 applic Documented by: Chlorhexidine Gluconate (Chlorhexidine Gluconate 4% Btl 118 Ml) 1 applic TOPICAL DAILY [facility] Last Admin: 12/07/20 17:18 Dose: 1 applic Documented by: Chlorhexidine Gluconate (Chlorhexidine Gluconate 0.12% Btl 473 Ml) 15 ml MUCOUS MEM BID [facility] Last Admin: 12/10/20 18:48 Dose: Not Given Documented by: Dextrose (Dextrose 50% Syringe 50 Ml) 50 ml IVP PRN PRN; Protocol PRN Reason: hypoglycemia protocol Dextrose (Dextrose 50% Syringe 50 Ml) 25 ml IVP ONCE PRN; Protocol PRN Reason: hypoglycemia protocol Dextrose (Dextrose 50% Syringe 50 Ml) 25 ml IVP ONCE PRN; Protocol PRN Reason: hypoglycemia protocol Dextrose (Dextrose 50% Syringe 50 Ml) 50 ml IVP PRN PRN; Protocol PRN Reason: hypoglycemia protocol Epinephrine (Racepinephrine 0.5 Ml Neb) 0.5 ml INHALATION Q6H.RESPIRATORY PRN PRN Reason: Stridor Fentanyl (Fentanyl 50 Mcg/Ml Inj 2ml) 50 mcg IVP Q1H PRN PRN Reason: SEVERE PAIN Last Admin: 12/11/20 05:17 Dose: 50 mcg Documented by: Glucagon (Glucagon 1 Mg/Ml Inj 1 Ml) 1 mg IM ONCE PRN; Protocol PRN Reason: Adult Acute Hypoglycemia Prot. Glucagon (Glucagon 1 Mg/Ml Inj 1 Ml) 1 mg IM ONCE PRN; Protocol PRN Reason: Adult Acute Hypoglycemia Prot Glucagon (Glucagon 1 Mg/Ml Inj 1 Ml) 1 mg IM ONCE PRN; Protocol PRN Reason: Adult Acute Hypoglycemia Prot. Heparin Sodium (Beef Lung) (Heparin 5,000 Unit/Ml Inj 1 Ml) 0 unit IV PRN PRN; Protocol PRN Reason: Heparin weight-base protocol Last Admin: 12/07/20 10:35 Dose: 42,000 unit Documented by: Hydralazine HCl (Hydralazine 20 Mg/Ml Inj 1 Ml) 5 mg IVP ONCE PRN PRN Reason: Systolic BP > 140 mmHg Hydromorphone HCl (Hydromorphone 1 Mg/Ml Inj 1 Ml) 0.5 mg IVP Q3H PRN PRN Reason: PAIN Last Admin: 12/12/20 08:28 Dose: 0.5 mg Documented by: Sodium Chloride (Sodium Chloride 0.9%) 1,000 mls @ 75 mls/hr IV .[id number] [facility] Last Admin: 12/07/20 17:17 Dose: 75 mls/hr Documented by: Nitroglycerin/Dextrose (Nitroglycerin Drip) 50 mg in 250 mls @ 0 mls/hr IV .Q0M [facility]; Protocol Last Titration: 12/08/20 17:19 Dose: Infused Documented by: Insulin Human Regular 250 unit (/ Sodium Chloride) 252.5 mls @ 0 mls/hr IV .Q0M [facility]; Protocol Last Titration: 12/08/20 17:19 Dose: Infused Documented by: Propofol (Diprivan) 1,000 mg in 100 mls @ 0 mls/hr IV .Q0M [facility]; Protocol Last Titration: 12/09/20 09:39 Dose: 15 mcg/kg/min, 7.6 mls/hr Documented by: Nitroglycerin/Dextrose (Nitroglycerin Drip) 50 mg in 250 mls @ 0 mls/hr IV .Q0M [facility]; Protocol Last Titration: 12/10/20 02:07 Dose: Infused Documented by: Albumin Human (Albumin) 12.5 gm in 250 mls @ 600 mls/hr IV PRN PRN PRN Reason: For CVP < 4 or SBP< 90 Last Infusion: 12/08/20 22:30 Dose: Infused Documented by: Sodium Nitroprusside 50 mg/ (Dextrose) 252 mls @ 0 mls/hr IV .Q0M [facility]; Protocol Labetalol HCl 300 mg/ Sodium (Chloride) 300 mls @ 30 mls/hr IV .Q10H PRN; Protocol PRN Reason: Systolic BP > 140 mmHg Dopamine HCl/Dextrose (Intropin Drip) 400 mg in 250 mls @ 15.93 mls/hr IV CONT PRN; Protocol PRN Reason: Hypotension Dobutamine HCl/Dextrose (Dobutamine Drip) 500 mg in 250 mls @ 0 mls/hr IV .Q0M PRN; Protocol PRN Reason: Cardiac Output Norepinephrine Bitartrate 4 mg (/ Dextrose) 254 mls @ 10.583 mls/hr IV .Q24H PRN; Protocol PRN Reason: HYPOTENSION Phenylephrine HCl 25 mg/ (Sodium Chloride) 252.5 mls @ 0 mls/hr IV .Q0M PRN; Protocol PRN Reason: HYPOTENSION Last Titration: 12/10/20 09:43 Dose: Infused Documented by: Dextrose (D5w) 500 mls @ 100 mls/hr IV ONCE PRN; Protocol PRN Reason: Adult Acute Hypoglycemia Prot Sodium Chloride (Sodium Chloride 0.9%) 1,000 mls @ 0 mls/hr IV .[id number] [facility] Last Admin: 12/11/20 16:51 Dose: 30 mls/hr Documented by: Dextrose (D5w) 500 mls @ 100 mls/hr IV ONCE PRN; Protocol PRN Reason: Adult Acute Hypoglycemia Prot Piperacillin Sod/Tazobactam (Sod 3.375 gm/ Sodium Chloride) 50 mls @ 12.5 mls/hr IV Q8H [facility]; Protocol Last Admin: 12/12/20 10:55 Dose: 12.5 mls/hr Documented by: Vancomycin/PEG/NADA/Lysine/Water (Vancocin) 1,250 mg in 250 mls @ 200 mls/hr IV Q8H [facility] Last Admin: 12/12/20 10:54 Dose: 150 mls/hr Documented by: Insulin Aspart (Insulin Aspart 100 Unit/1 Ml) 0 unit SUBCUT WM&BEDTIME [facility]; Protocol Last Admin: 12/12/20 11:58 Dose: 10 unit Documented by: Labetalol HCl (Labetalol 5 Mg/Ml Sdv 20ml) 10 mg IVP Q5M PRN PRN Reason: Systolic BP >140 mmHG Lanolin (Lanolin Oint 7 Gm) 1 applic TOPICAL PRN PRN PRN Reason: DRYNESS Lanolin (Lanolin Oint 7 Gm) 1 applic TOPICAL PRN PRN PRN Reason: DRYNESS Levothyroxine Sodium (Levothyroxine 75 Mcg Tablet) 150 mcg PO QAM [facility] Last Admin: 12/12/20 06:36 Dose: 150 mcg Documented by: Magnesium Hydroxide (Magnesium Hydroxide 30 Ml Udc) 30 ml PO DAILY PRN PRN Reason: CONSTIPATION Metoprolol Tartrate (Metoprolol Tartrate 25 Mg Tablet) 25 mg PO BID@0900,2100 [facility] Last Admin: 12/12/20 10:54 Dose: 25 mg Documented by: Midazolam HCl (Midazolam 1 Mg/Ml Inj 2 Ml) 1 mg IVP Q1H PRN PRN Reason: Sedation for Montoya score < 4. Last Admin: 12/09/20 02:03 Dose: 1 mg Documented by: Mupirocin (Mupirocin Oint 22 Gm) 1 applic NASAL BID [facility] Last Admin: 12/08/20 05:57 Dose: 1 applic Documented by: Naloxone HCl (Naloxone 0.4 Mg/Ml Sdv) 0.1 mg IVP Q2M PRN PRN Reason: RESPIRATORY RATE < 8/MIN Naloxone HCl (Naloxone 0.4 Mg/Ml Sdv) 0.1 mg IVP Q2M PRN PRN Reason: OPIATERV Nitroglycerin (Nitroglycerin 0.4 Mg Sublingual Tablet) 0.4 mg SUBLINGUAL Q5M PRN PRN Reason: CHEST PAIN Last Admin: 12/05/20 22:41 Dose: 1 tab Documented by: Ondansetron HCl (Ondansetron 2 Mg/Ml Sdv 2 Ml) 4 mg IVP Q8H PRN PRN Reason: vomiting, or N/V if npo Last Admin: 12/08/20 05:51 Dose: 4 mg Documented by: Ondansetron HCl (Ondansetron 2 Mg/Ml Sdv 2 Ml) 4 mg IVP Q6H PRN PRN Reason: NAUSEA Last Admin: 12/12/20 07:50 Dose: 4 mg Documented by: Oxycodone/Acetaminophen (Oxycodone-Apap 5-325 Mg Tablet) 1 - 2 tab PO Q4H PRN PRN Reason: MODERATE TO SEVERE PAIN Last Admin: 12/12/20 11:59 Dose: 2 tab Documented by: Pantoprazole Sodium (Pantoprazole Dr 40 Mg Tablet) 40 mg PO DAILY [facility] Last Admin: 12/07/20 08:51 Dose: 40 mg Documented by: Zolpidem Tartrate (Zolpidem 10 Mg Tablet) 10 mg PO BEDTIME PRN PRN Reason: Sleep Last Admin: 12/11/20 21:29 Dose: 10 mg Documented by: Vitals/I&O/Wt Last Vital Signs Temp 98.3 F 12/13/20 16:00 Pulse 78 12/13/20 17:00 Resp 13 12/13/20 17:00 BP 109/66 12/13/20 17:00 Pulse Ox 100 12/13/20 17:00 12/13/20 12/13/20 12/13/20 06:59 14:59 22:59 Intake Total 1000 / 2160 1270 / 1270 50 / 1320 Output Total 225 / 425 1000 / 1000 Balance 775 / 1735 270 / 270 50 / 320 Weight last 48 hrs Weight 208 lb 4.8 oz Physical Exam Narrative: EXAM NARRATIVE: GENERAL: Patient is alert, awake and oriented x3. NECK: No jugular vein distension. HEENT: No cyanosis. No icterus. No pallor. HEART: Regular S1 and S2. No murmur, rub or gallop. LUNGS: Clear to auscultate bilaterally. CENTRAL NERVOUS SYSTEM: Grossly nonfocal. EXTREMITIES: Lower extremities without edema bilaterally. Urinary Catheter Management^: Garcia: Cath Placed During This Visit: yes, but has since been removed by the nurse Reason for Continuing Indwelling Catheter: Accurate Measurement of Urinary Output in Critically Ill Patients Urinary Catheter Date of Insertion: 12/08/20 Urinary Catheter Time of Insertion: 08:18 Date Urinary Catheter Removed: 12/12/20 Time Urinary Catheter Discontinued: 15:00 Data : 12/13/20 04:14 12/13/20 04:14 Micro: Microbiology 12/12/20 08:10 Sputum Culture - Preliminary Sputum - Expectorated Sputum A&P Assessment and plan (1) Status post aorto-coronary artery bypass graft: Stable. Doing fine from cardiovascular perspective. Chest tubes are out vitals are stable patient can be moved out of the unit when bed is available upstairs Status: Acute (2) Non-ST elevation SC (NSTEMI): Continue optimal medical management including aspirin statin beta-kj and Plavix. Status: Acute (3) Dyslipidemia (high LDL; low HDL): Continue statin. Status: Acute (4) Uncontrolled type 2 diabetes with neuropathy: Continue management as per primary care Status: Chronic Additional A&P Information Based on the clinical progress, further management decisions will be made. Possible transfer to telemetry this afternoon or in the morning Attestations Medical Necessity Statement*: Require continuation hospitalization for above defined care. Coding Level of Care Code Acute Medical Records Specialist for Dev Flood Diagnoses Status post aorto-coronary artery bypass graft Z95.1 Non-ST elevation SC (NSTEMI) I21.4 Dyslipidemia (high LDL; low HDL) E78.5 Uncontrolled type 2 diabetes with neuropathy E11.40; E11.65
[2020-12-13 17:50] LABS: Glucose Point of Care 178 mg/dL (70-110)
[2020-12-13] MEDS: atorvastatin 40 mg Tablet 20 MG PO (20:19)
[2020-12-13] MEDS: magnesium sulfate premix 2 GM/50 ML PIGGYBACK IV (20:20)
[2020-12-13 20:31] LABS: Glucose Point of Care 195 mg/dL (70-110)
--- NOTE | 2020-12-13 21:27 | PC.NURSE ---
report given to Ovidio Gasca RN. Patient to be transferred to CSU
--- NOTE | 2020-12-13 22:20 | PC.NURSE ---
Patient transferred to CSU room 103 with all belongings, via wheelchair.
[2020-12-14] VITALS (14 sets, daily range): BP systolic 113–145; BP diastolic 61–80; PULSE 68–88; RESP 10–24; TEMP 36.3–36.9; O2SAT 91–97
[2020-12-14] MEDS: oxyCODONE-APAP 5-325 mg Tablet PO ×4 (00:47→18:02)
[2020-12-14] MEDS: zolpidem 5 mg Tablet 10 MG PO ×2 (00:48→19:51)
[2020-12-14] MEDS: piperacillin-tazobactam 3.375 GM in sodium chloride 0.9% (plus) 50 ML IV ×2 (01:47→10:04)
[2020-12-14 04:00] LABS: Basophils % 0.5 %; Eosinophils # 0.4 10^3/uL (0.0-0.8); Eosinophils % 4.3 %; Hematocrit 24.7 % (37.0-47.0); Hemoglobin 7.8 g/dL (11.5-15.3); Lymphocytes # 1.8 10^3/uL (0.8-4.8); Lymphocytes % 22.7 %; Mean Corpuscular HGB Conc 31.6 g/dL (30.0-36.0); Mean Corpuscular Hemoglobin 29.5 pg (28.0-34.0); Mean Corpuscular Volume 93.6 fL (81-99); Mean Platelet Volume 9.7 fL (7.4-10.4); Monocytes # 0.9 10^3/uL (0.2-0.9); Neutrophils % 60.8 %; Nucleated Red Blood Cells % 0 %; Platelet Count 268 10^3/cmm (130-400); Red Blood Count 2.64 10^6/uL (4.1-5.3); Red Cell Distribution Width 12.6 % (12.1-15.1); White Blood Count 8.1 10^3/uL (4.0-10.0)
[2020-12-14 04:20] LABS: Alanine Aminotransferase 19 U/L (0-33); Albumin Level 2.6 g/dL (3.5-5.2); Alkaline Phosphatase 162 IU/L (35-105); Anion Gap 7.6 (5-19); Aspartate Amino Transferase 10 U/L (0-32); Blood Urea Nitrogen 9 mg/dL (8-23); Calcium 8.6 mg/dL (8.5-10.5); Carbon Dioxide 31 mmol/L (22-29); Chloride 101 mmol/L (98-107); Globulin 2.4 g/dL (1.3-4.6); Glomerular Filtration Rate 158.3 mL/min (90-130); Glucose 165 mg/dL (65-115); Magnesium 1.9 mg/dL (1.7-2.3); Osmolality Calculated 284 mOsm/kg (285-295); Potassium 3.6 mmol/L (3.5-5.1); Sodium 136 mmol/L (136-145); Total Bilirubin 0.4 mg/dL (0.15-1.2)
[2020-12-14] MEDS: levothyroxine 75 mcg Tablet 150 MCG PO (06:27)
[2020-12-14 07:14] LABS: Glucose Point of Care 163 mg/dL (70-110)
--- NOTE | 2020-12-14 07:27 | PM.PN ---
Subjective Subjective: Interval history: Over all she is doing good,she is complaining of constipation and has been given fleet enema. Her other vitals and labs have been reviewed. Medications: Reviewed: Yes Medication Review Details: Current Medications Acetaminophen (Acetaminophen 325 Mg Tablet) 650 mg PO Q6H PRN PRN Reason: Mild/Mod Pain Or Temp >/= 101 Last Admin: 12/06/20 05:30 Dose: 650 mg Documented by: Acetaminophen (Acetaminophen 325 Mg Tablet) 650 mg PO Q6H PRN PRN Reason: MILD PAIN Hydrocodone Bitart/Acetaminophen (Hydrocodone-Acetaminophen 10-325 Mg Tablet) 1 tab PO Q6H PRN PRN Reason: Pain Last Admin: 12/07/20 23:20 Dose: 1 tab Documented by: Alprazolam (Alprazolam 0.25 Mg Tablet) 0.25 mg PO TID PRN PRN Reason: ANXIETY Last Admin: 12/12/20 04:59 Dose: 0.25 mg Documented by: Amlodipine Besylate (Amlodipine 5 Mg Tablet) 5 mg PO DAILY [facility] Last Admin: 12/12/20 10:53 Dose: 5 mg Documented by: Aspirin (Aspirin 325 Mg Ec Tablet) 325 mg PO DAILY [facility] Last Admin: 12/07/20 08:51 Dose: 325 mg Documented by: Aspirin (Aspirin 81 Mg Chew Tablet) 81 mg PO DAILY [facility] Last Admin: 12/12/20 10:54 Dose: 81 mg Documented by: Atorvastatin Calcium (Atorvastatin 40 Mg Tablet) 20 mg PO BEDTIME [facility] Last Admin: 12/11/20 21:22 Dose: 20 mg Documented by: Atropine Sulfate (Atropine 1 Mg/Ml Sdv 1 Ml) 0.5 mg IVP PRN PRN PRN Reason: Symptomatic bradycardia Baclofen (Baclofen 10 Mg Tablet) 10 mg PO BID PRN PRN Reason: Muscle Spasm Last Admin: 12/07/20 08:52 Dose: 10 mg Documented by: Chlorhexidine Gluconate (Chlorhexidine Gluconate 0.12% Btl 473 Ml) 15 ml MUCOUS MEM BID [facility] Last Admin: 12/07/20 17:17 Dose: 1 applic Documented by: Chlorhexidine Gluconate (Chlorhexidine Gluconate 4% Btl 118 Ml) 1 applic TOPICAL DAILY [facility] Last Admin: 12/07/20 17:18 Dose: 1 applic Documented by: Chlorhexidine Gluconate (Chlorhexidine Gluconate 0.12% Btl 473 Ml) 15 ml MUCOUS MEM BID [facility] Last Admin: 12/10/20 18:48 Dose: Not Given Documented by: Dextrose (Dextrose 50% Syringe 50 Ml) 50 ml IVP PRN PRN; Protocol PRN Reason: hypoglycemia protocol Dextrose (Dextrose 50% Syringe 50 Ml) 25 ml IVP ONCE PRN; Protocol PRN Reason: hypoglycemia protocol Dextrose (Dextrose 50% Syringe 50 Ml) 25 ml IVP ONCE PRN; Protocol PRN Reason: hypoglycemia protocol Dextrose (Dextrose 50% Syringe 50 Ml) 50 ml IVP PRN PRN; Protocol PRN Reason: hypoglycemia protocol Epinephrine (Racepinephrine 0.5 Ml Neb) 0.5 ml INHALATION Q6H.RESPIRATORY PRN PRN Reason: Stridor Fentanyl (Fentanyl 50 Mcg/Ml Inj 2ml) 50 mcg IVP Q1H PRN PRN Reason: SEVERE PAIN Last Admin: 12/11/20 05:17 Dose: 50 mcg Documented by: Glucagon (Glucagon 1 Mg/Ml Inj 1 Ml) 1 mg IM ONCE PRN; Protocol PRN Reason: Adult Acute Hypoglycemia Prot. Glucagon (Glucagon 1 Mg/Ml Inj 1 Ml) 1 mg IM ONCE PRN; Protocol PRN Reason: Adult Acute Hypoglycemia Prot Glucagon (Glucagon 1 Mg/Ml Inj 1 Ml) 1 mg IM ONCE PRN; Protocol PRN Reason: Adult Acute Hypoglycemia Prot. Heparin Sodium (Beef Lung) (Heparin 5,000 Unit/Ml Inj 1 Ml) 0 unit IV PRN PRN; Protocol PRN Reason: Heparin weight-base protocol Last Admin: 12/07/20 10:35 Dose: 42,000 unit Documented by: Hydralazine HCl (Hydralazine 20 Mg/Ml Inj 1 Ml) 5 mg IVP ONCE PRN PRN Reason: Systolic BP > 140 mmHg Hydromorphone HCl (Hydromorphone 1 Mg/Ml Inj 1 Ml) 0.5 mg IVP Q3H PRN PRN Reason: PAIN Last Admin: 12/12/20 08:28 Dose: 0.5 mg Documented by: Sodium Chloride (Sodium Chloride 0.9%) 1,000 mls @ 75 mls/hr IV .[id number] [facility] Last Admin: 12/07/20 17:17 Dose: 75 mls/hr Documented by: Nitroglycerin/Dextrose (Nitroglycerin Drip) 50 mg in 250 mls @ 0 mls/hr IV .Q0M [facility]; Protocol Last Titration: 12/08/20 17:19 Dose: Infused Documented by: Insulin Human Regular 250 unit (/ Sodium Chloride) 252.5 mls @ 0 mls/hr IV .Q0M [facility]; Protocol Last Titration: 12/08/20 17:19 Dose: Infused Documented by: Propofol (Diprivan) 1,000 mg in 100 mls @ 0 mls/hr IV .Q0M [facility]; Protocol Last Titration: 12/09/20 09:39 Dose: 15 mcg/kg/min, 7.6 mls/hr Documented by: Nitroglycerin/Dextrose (Nitroglycerin Drip) 50 mg in 250 mls @ 0 mls/hr IV .Q0M [facility]; Protocol Last Titration: 12/10/20 02:07 Dose: Infused Documented by: Albumin Human (Albumin) 12.5 gm in 250 mls @ 600 mls/hr IV PRN PRN PRN Reason: For CVP < 4 or SBP< 90 Last Infusion: 12/08/20 22:30 Dose: Infused Documented by: Sodium Nitroprusside 50 mg/ (Dextrose) 252 mls @ 0 mls/hr IV .Q0M [facility]; Protocol Labetalol HCl 300 mg/ Sodium (Chloride) 300 mls @ 30 mls/hr IV .Q10H PRN; Protocol PRN Reason: Systolic BP > 140 mmHg Dopamine HCl/Dextrose (Intropin Drip) 400 mg in 250 mls @ 15.93 mls/hr IV CONT PRN; Protocol PRN Reason: Hypotension Dobutamine HCl/Dextrose (Dobutamine Drip) 500 mg in 250 mls @ 0 mls/hr IV .Q0M PRN; Protocol PRN Reason: Cardiac Output Norepinephrine Bitartrate 4 mg (/ Dextrose) 254 mls @ 10.583 mls/hr IV .Q24H PRN; Protocol PRN Reason: HYPOTENSION Phenylephrine HCl 25 mg/ (Sodium Chloride) 252.5 mls @ 0 mls/hr IV .Q0M PRN; Protocol PRN Reason: HYPOTENSION Last Titration: 12/10/20 09:43 Dose: Infused Documented by: Dextrose (D5w) 500 mls @ 100 mls/hr IV ONCE PRN; Protocol PRN Reason: Adult Acute Hypoglycemia Prot Sodium Chloride (Sodium Chloride 0.9%) 1,000 mls @ 0 mls/hr IV .[id number] [facility] Last Admin: 12/11/20 16:51 Dose: 30 mls/hr Documented by: Dextrose (D5w) 500 mls @ 100 mls/hr IV ONCE PRN; Protocol PRN Reason: Adult Acute Hypoglycemia Prot Piperacillin Sod/Tazobactam (Sod 3.375 gm/ Sodium Chloride) 50 mls @ 12.5 mls/hr IV Q8H [facility]; Protocol Last Admin: 12/12/20 10:55 Dose: 12.5 mls/hr Documented by: Vancomycin/PEG/NADA/Lysine/Water (Vancocin) 1,250 mg in 250 mls @ 200 mls/hr IV Q8H [facility] Last Admin: 12/12/20 10:54 Dose: 150 mls/hr Documented by: Insulin Aspart (Insulin Aspart 100 Unit/1 Ml) 0 unit SUBCUT WM&BEDTIME [facility]; Protocol Last Admin: 12/12/20 11:58 Dose: 10 unit Documented by: Labetalol HCl (Labetalol 5 Mg/Ml Sdv 20ml) 10 mg IVP Q5M PRN PRN Reason: Systolic BP >140 mmHG Lanolin (Lanolin Oint 7 Gm) 1 applic TOPICAL PRN PRN PRN Reason: DRYNESS Lanolin (Lanolin Oint 7 Gm) 1 applic TOPICAL PRN PRN PRN Reason: DRYNESS Levothyroxine Sodium (Levothyroxine 75 Mcg Tablet) 150 mcg PO QAM [facility] Last Admin: 12/12/20 06:36 Dose: 150 mcg Documented by: Magnesium Hydroxide (Magnesium Hydroxide 30 Ml Udc) 30 ml PO DAILY PRN PRN Reason: CONSTIPATION Metoprolol Tartrate (Metoprolol Tartrate 25 Mg Tablet) 25 mg PO BID@0900,2100 [facility] Last Admin: 12/12/20 10:54 Dose: 25 mg Documented by: Midazolam HCl (Midazolam 1 Mg/Ml Inj 2 Ml) 1 mg IVP Q1H PRN PRN Reason: Sedation for Montoya score < 4. Last Admin: 12/09/20 02:03 Dose: 1 mg Documented by: Mupirocin (Mupirocin Oint 22 Gm) 1 applic NASAL BID [facility] Last Admin: 12/08/20 05:57 Dose: 1 applic Documented by: Naloxone HCl (Naloxone 0.4 Mg/Ml Sdv) 0.1 mg IVP Q2M PRN PRN Reason: RESPIRATORY RATE < 8/MIN Naloxone HCl (Naloxone 0.4 Mg/Ml Sdv) 0.1 mg IVP Q2M PRN PRN Reason: OPIATERV Nitroglycerin (Nitroglycerin 0.4 Mg Sublingual Tablet) 0.4 mg SUBLINGUAL Q5M PRN PRN Reason: CHEST PAIN Last Admin: 12/05/20 22:41 Dose: 1 tab Documented by: Ondansetron HCl (Ondansetron 2 Mg/Ml Sdv 2 Ml) 4 mg IVP Q8H PRN PRN Reason: vomiting, or N/V if npo Last Admin: 12/08/20 05:51 Dose: 4 mg Documented by: Ondansetron HCl (Ondansetron 2 Mg/Ml Sdv 2 Ml) 4 mg IVP Q6H PRN PRN Reason: NAUSEA Last Admin: 12/12/20 07:50 Dose: 4 mg Documented by: Oxycodone/Acetaminophen (Oxycodone-Apap 5-325 Mg Tablet) 1 - 2 tab PO Q4H PRN PRN Reason: MODERATE TO SEVERE PAIN Last Admin: 12/12/20 11:59 Dose: 2 tab Documented by: Pantoprazole Sodium (Pantoprazole Dr 40 Mg Tablet) 40 mg PO DAILY [facility] Last Admin: 12/07/20 08:51 Dose: 40 mg Documented by: Zolpidem Tartrate (Zolpidem 10 Mg Tablet) 10 mg PO BEDTIME PRN PRN Reason: Sleep Last Admin: 12/11/20 21:29 Dose: 10 mg Documented by: Vitals/I&O/Wt Last Vital Signs Temp 98.5 F 12/14/20 04:00 Pulse 82 12/14/20 06:00 Resp 18 12/14/20 06:32 BP 141/68 12/14/20 04:00 Pulse Ox 97 12/14/20 06:32 12/13/20 12/14/20 12/14/20 22:59 06:59 14:59 Intake Total 175 / 1445 100 / 1545 Output Total 500 / 1500 Balance -325 / -55 100 / 45 Weight last 48 hrs Weight 97.069 kg Weight 94.483 kg Physical Exam Const: COMMON NORMALS: patient oriented x3 HENMT: COMMON NORMALS: normocephalic and atraumatic HEAD & SCALP: normocephalic and atraumatic Eye: COMMON NORMALS: no scleral icterus GENERAL EYE: appearance normal, both eyes and all related structures Chest: COMMONS NORMALS: normal inspection of the chest and normal palpation of entire chest wall CHEST: Yes Symmetrical chest wall rise OTHER: Surgical dressings in place. Resp: COMMON NORMALS: normal respiratory effort, No retractions and No use of accessory muscles EFFORT & INSPECTION: Yes symmetric chest movement OTHER: Clear to ascultation B/L Cardio: COMMON NORMALS: regular rate, regular rhythm, S1 normal heart sound present, S2 normal heart sound present, No gallops present (Cardio), No murmurs present (Cardio), No rub (Cardio) and Peripheral pulses 2+ throughout RATE: regular rate RHYTHM: regular rhythm HEART SOUNDS: S1 normal heart sound present and S2 normal heart sound present PERIPHERAL PULSES: Peripheral pulses 2+ throughout GI: COMMON NORMALS: Normal to inspection, nondistended, normoactive bowel sounds present, Soft to palpation, non-tender, No hepatosplenomegaly present and no masses AUSCULTATION: Yes normoactive bowel sounds PALPATION: Yes Soft to palpation and Yes No hepatosplenomegaly present RECTAL EXAM: deferred Extremity: COMMON NORMALS: no clubbing, cyanosis or edema and no pedal edema Neuro: COMMON NORMALS: patient oriented x3 Urinary Catheter Management^: Garcia: Cath Placed During This Visit: yes, but has since been removed by the nurse Reason for Continuing Indwelling Catheter: Accurate Measurement of Urinary Output in Critically Ill Patients Urinary Catheter Date of Insertion: 12/08/20 Urinary Catheter Time of Insertion: 08:18 Date Urinary Catheter Removed: 12/12/20 Time Urinary Catheter Discontinued: 15:00 Data : 12/14/20 03:18 12/14/20 03:18 Micro: Microbiology 12/12/20 08:10 Sputum Culture - Preliminary Sputum - Expectorated Sputum A&P Assessment and plan (1) Non-ST elevation MA (NSTEMI): -Multivessel CAD -S/P : Coronary artery bypass grafting x3 utilizing in situ left internal mammary artery to the left anterior descending artery, reverse saphenous vein graft aorta to the diagonal artery, reverse saphenous vein graft aorta to the obtuse marginal branch of circumflex artery. -Continue aspirin, statin, beta-kj -Continue to monitor for chest pain, telemetry monitoring -Continue to monitor in ICU -Full code -Heparin for DVT prophylaxis, SCDs Status: Acute (2) Leukocytosis: WBC has trended up : to 15T FROM 10.2 now trending down Xray chest : Persistent mild fluid overload or interstitial edema.Small bilateral pleural effusions. Chest ultrasound.: Minimal Rt Pleural effusion < 200 cc Blood Culture:Negative urine culture:Negative Sputum Cul; MODERATE MIXED UPPER RESPIRATORY IVAN lactic acid:1 Procal:0.25 Was empirically covered with Van and Zosyn. Vancomycin was DC on 12/13. Zosyn Dc on 12/14 Status: Acute (3) Anemia: Normocytic Anemia H/H is stable 7.824.9 Status: Acute (4) UTI (urinary tract infection): urine culture :Negative Continue Abx as above Status: Acute (5) Transaminitis: Resolved Hepatitis panel HIV Status: Acute (6) Uncontrolled type 2 diabetes with neuropathy: Usually on insulin and glipizide Hemoglobin A1c 10.7 Hold Lantus Insulin sliding scale Status: Chronic (7) Hypothyroid: On levothyroxine Status: Acute Qualifiers: Hypothyroidism type: acquired Qualified Code(s): E03.9 - Hypothyroidism, unspecified (8) Fibromyalgia: On hydrocodone and prn baclofen Status: Acute (9) Constipated: Fleet enema Status: Acute Additional A&P Information GI prophylaxis Continue home pain management as needed medicines Supportive care otherwise Plans discussed with patient and she was given an opportunity to ask questions Full code Attestations Medical Necessity Statement*: Patient needs to be in hospital for the management of s/p CABG Coding Level of Care Code Acute [employer] for [employer]g Fwd Exam Comprehensive Diagnoses Non-ST elevation MA (NSTEMI) I21.4 Leukocytosis D72.829 Anemia D64.9 UTI (urinary tract infection) N39.0 Transaminitis R74.01 Uncontrolled type 2 diabetes with neuropathy E11.40; E11.65 Hypothyroid E03.9 Hypothyroidism type: acquired Fibromyalgia M79.7 Constipated K59.00
--- NOTE | 2020-12-14 07:46 | PC.NURSE ---
Patient was recieved from ICU at 2230 to room 103. Patient alert and oriented X 4. No pain noted at this time. Patient cooperative and pleasant. Wound vac in place to chest wall. Sternal precautions in use with heart hugger pillow used by patient. Pulses palpable and equal. Skin warm dry and intact with exception of chest wall surgical incision and incision to inside of R lower leg from vein harvesting site. Patient watching tv at this time and settled into bed. Room orientation completed. Patient rested well all night long Up to BSC 3 or 4 times with good results and standby assist of 1. Will continue to monitor and assist as needed following CPOC
--- NOTE | 2020-12-14 08:00 | PC.NURSE ---
Patient assisted up to chair for breakfast. Reports pain at 7/10 at this time. Physical assessment performed. No needs identified at this time. Nurse to continue to monitor.
[2020-12-14] MEDS: amlodipine 5 mg Tablet PO (09:18)
[2020-12-14] MEDS: clopidogrel 75 mg Tablet PO (09:19)
[2020-12-14] MEDS: metoprolol tartrate 25 mg Tablet PO ×2 (09:19→20:11)
[2020-12-14] MEDS: aspirin 81 mg Chew Tablet PO (09:19)
[2020-12-14] MEDS: pantoprazole DR 40 mg Tablet PO (09:19)
[2020-12-14] MEDS: baclofen 10 mg Tablet PO ×2 (09:24→20:11)
[2020-12-14] MEDS: chlorhexidine gluconate 0.12% Btl 473 mL 15 ML MUCOUS MEM (10:03)
[2020-12-14 11:17] LABS: Glucose Point of Care 211 mg/dL (70-110)
--- NOTE | 2020-12-14 12:35 | PC.NURSE ---
Patient reports that she had a partial BM but it was hard and could not pass the rest. Requests enema. Dr. Paz notified. Telephone order received for enema. When nurse went to administer it to patient, patient refused enema stating she had already passed the BM. She requested a stool softener instead. Milk of Magnesia administered. Nurse to continue to monitor.
[2020-12-14] MEDS: magnesium hydroxide 30 mL UDC PO (12:37)
--- NOTE | 2020-12-14 14:24 | PC.NURSE ---
Patient reports increasing anxiety. Dr. Paz notified as xanax had been discontinued. Telephone order to restart medication, xanax 0.25 mg at Bedtime, give additional one time dose now. RBTO.
[2020-12-14] MEDS: ALPRAZolam 0.25 mg Tablet PO ×2 (14:32→19:51)
--- NOTE | 2020-12-14 16:27 | PM.PN ---
Subjective Subjective: Interval history: Stable vital henry she states she is improving had passed stool today. Medications: Reviewed: Yes Medication Review Details: Current Medications Acetaminophen (Acetaminophen 325 Mg Tablet) 650 mg PO Q6H PRN PRN Reason: Mild/Mod Pain Or Temp >/= 101 Last Admin: 12/06/20 05:30 Dose: 650 mg Documented by: Acetaminophen (Acetaminophen 325 Mg Tablet) 650 mg PO Q6H PRN PRN Reason: MILD PAIN Hydrocodone Bitart/Acetaminophen (Hydrocodone-Acetaminophen 10-325 Mg Tablet) 1 tab PO Q6H PRN PRN Reason: Pain Last Admin: 12/07/20 23:20 Dose: 1 tab Documented by: Alprazolam (Alprazolam 0.25 Mg Tablet) 0.25 mg PO TID PRN PRN Reason: ANXIETY Last Admin: 12/12/20 04:59 Dose: 0.25 mg Documented by: Amlodipine Besylate (Amlodipine 5 Mg Tablet) 5 mg PO DAILY [facility] Last Admin: 12/12/20 10:53 Dose: 5 mg Documented by: Aspirin (Aspirin 325 Mg Ec Tablet) 325 mg PO DAILY [facility] Last Admin: 12/07/20 08:51 Dose: 325 mg Documented by: Aspirin (Aspirin 81 Mg Chew Tablet) 81 mg PO DAILY [facility] Last Admin: 12/12/20 10:54 Dose: 81 mg Documented by: Atorvastatin Calcium (Atorvastatin 40 Mg Tablet) 20 mg PO BEDTIME [facility] Last Admin: 12/11/20 21:22 Dose: 20 mg Documented by: Atropine Sulfate (Atropine 1 Mg/Ml Sdv 1 Ml) 0.5 mg IVP PRN PRN PRN Reason: Symptomatic bradycardia Baclofen (Baclofen 10 Mg Tablet) 10 mg PO BID PRN PRN Reason: Muscle Spasm Last Admin: 12/07/20 08:52 Dose: 10 mg Documented by: Chlorhexidine Gluconate (Chlorhexidine Gluconate 0.12% Btl 473 Ml) 15 ml MUCOUS MEM BID [facility] Last Admin: 12/07/20 17:17 Dose: 1 applic Documented by: Chlorhexidine Gluconate (Chlorhexidine Gluconate 4% Btl 118 Ml) 1 applic TOPICAL DAILY [facility] Last Admin: 12/07/20 17:18 Dose: 1 applic Documented by: Chlorhexidine Gluconate (Chlorhexidine Gluconate 0.12% Btl 473 Ml) 15 ml MUCOUS MEM BID [facility] Last Admin: 12/10/20 18:48 Dose: Not Given Documented by: Dextrose (Dextrose 50% Syringe 50 Ml) 50 ml IVP PRN PRN; Protocol PRN Reason: hypoglycemia protocol Dextrose (Dextrose 50% Syringe 50 Ml) 25 ml IVP ONCE PRN; Protocol PRN Reason: hypoglycemia protocol Dextrose (Dextrose 50% Syringe 50 Ml) 25 ml IVP ONCE PRN; Protocol PRN Reason: hypoglycemia protocol Dextrose (Dextrose 50% Syringe 50 Ml) 50 ml IVP PRN PRN; Protocol PRN Reason: hypoglycemia protocol Epinephrine (Racepinephrine 0.5 Ml Neb) 0.5 ml INHALATION Q6H.RESPIRATORY PRN PRN Reason: Stridor Fentanyl (Fentanyl 50 Mcg/Ml Inj 2ml) 50 mcg IVP Q1H PRN PRN Reason: SEVERE PAIN Last Admin: 12/11/20 05:17 Dose: 50 mcg Documented by: Glucagon (Glucagon 1 Mg/Ml Inj 1 Ml) 1 mg IM ONCE PRN; Protocol PRN Reason: Adult Acute Hypoglycemia Prot. Glucagon (Glucagon 1 Mg/Ml Inj 1 Ml) 1 mg IM ONCE PRN; Protocol PRN Reason: Adult Acute Hypoglycemia Prot Glucagon (Glucagon 1 Mg/Ml Inj 1 Ml) 1 mg IM ONCE PRN; Protocol PRN Reason: Adult Acute Hypoglycemia Prot. Heparin Sodium (Beef Lung) (Heparin 5,000 Unit/Ml Inj 1 Ml) 0 unit IV PRN PRN; Protocol PRN Reason: Heparin weight-base protocol Last Admin: 12/07/20 10:35 Dose: 42,000 unit Documented by: Hydralazine HCl (Hydralazine 20 Mg/Ml Inj 1 Ml) 5 mg IVP ONCE PRN PRN Reason: Systolic BP > 140 mmHg Hydromorphone HCl (Hydromorphone 1 Mg/Ml Inj 1 Ml) 0.5 mg IVP Q3H PRN PRN Reason: PAIN Last Admin: 12/12/20 08:28 Dose: 0.5 mg Documented by: Sodium Chloride (Sodium Chloride 0.9%) 1,000 mls @ 75 mls/hr IV .[id number] [facility] Last Admin: 12/07/20 17:17 Dose: 75 mls/hr Documented by: Nitroglycerin/Dextrose (Nitroglycerin Drip) 50 mg in 250 mls @ 0 mls/hr IV .Q0M [facility]; Protocol Last Titration: 12/08/20 17:19 Dose: Infused Documented by: Insulin Human Regular 250 unit (/ Sodium Chloride) 252.5 mls @ 0 mls/hr IV .Q0M [facility]; Protocol Last Titration: 12/08/20 17:19 Dose: Infused Documented by: Propofol (Diprivan) 1,000 mg in 100 mls @ 0 mls/hr IV .Q0M [facility]; Protocol Last Titration: 12/09/20 09:39 Dose: 15 mcg/kg/min, 7.6 mls/hr Documented by: Nitroglycerin/Dextrose (Nitroglycerin Drip) 50 mg in 250 mls @ 0 mls/hr IV .Q0M [facility]; Protocol Last Titration: 12/10/20 02:07 Dose: Infused Documented by: Albumin Human (Albumin) 12.5 gm in 250 mls @ 600 mls/hr IV PRN PRN PRN Reason: For CVP < 4 or SBP< 90 Last Infusion: 12/08/20 22:30 Dose: Infused Documented by: Sodium Nitroprusside 50 mg/ (Dextrose) 252 mls @ 0 mls/hr IV .Q0M [facility]; Protocol Labetalol HCl 300 mg/ Sodium (Chloride) 300 mls @ 30 mls/hr IV .Q10H PRN; Protocol PRN Reason: Systolic BP > 140 mmHg Dopamine HCl/Dextrose (Intropin Drip) 400 mg in 250 mls @ 15.93 mls/hr IV CONT PRN; Protocol PRN Reason: Hypotension Dobutamine HCl/Dextrose (Dobutamine Drip) 500 mg in 250 mls @ 0 mls/hr IV .Q0M PRN; Protocol PRN Reason: Cardiac Output Norepinephrine Bitartrate 4 mg (/ Dextrose) 254 mls @ 10.583 mls/hr IV .Q24H PRN; Protocol PRN Reason: HYPOTENSION Phenylephrine HCl 25 mg/ (Sodium Chloride) 252.5 mls @ 0 mls/hr IV .Q0M PRN; Protocol PRN Reason: HYPOTENSION Last Titration: 12/10/20 09:43 Dose: Infused Documented by: Dextrose (D5w) 500 mls @ 100 mls/hr IV ONCE PRN; Protocol PRN Reason: Adult Acute Hypoglycemia Prot Sodium Chloride (Sodium Chloride 0.9%) 1,000 mls @ 0 mls/hr IV .[id number] [facility] Last Admin: 12/11/20 16:51 Dose: 30 mls/hr Documented by: Dextrose (D5w) 500 mls @ 100 mls/hr IV ONCE PRN; Protocol PRN Reason: Adult Acute Hypoglycemia Prot Piperacillin Sod/Tazobactam (Sod 3.375 gm/ Sodium Chloride) 50 mls @ 12.5 mls/hr IV Q8H [facility]; Protocol Last Admin: 12/12/20 10:55 Dose: 12.5 mls/hr Documented by: Vancomycin/PEG/NADA/Lysine/Water (Vancocin) 1,250 mg in 250 mls @ 200 mls/hr IV Q8H [facility] Last Admin: 12/12/20 10:54 Dose: 150 mls/hr Documented by: Insulin Aspart (Insulin Aspart 100 Unit/1 Ml) 0 unit SUBCUT WM&BEDTIME [facility]; Protocol Last Admin: 12/12/20 11:58 Dose: 10 unit Documented by: Labetalol HCl (Labetalol 5 Mg/Ml Sdv 20ml) 10 mg IVP Q5M PRN PRN Reason: Systolic BP >140 mmHG Lanolin (Lanolin Oint 7 Gm) 1 applic TOPICAL PRN PRN PRN Reason: DRYNESS Lanolin (Lanolin Oint 7 Gm) 1 applic TOPICAL PRN PRN PRN Reason: DRYNESS Levothyroxine Sodium (Levothyroxine 75 Mcg Tablet) 150 mcg PO QAM [facility] Last Admin: 12/12/20 06:36 Dose: 150 mcg Documented by: Magnesium Hydroxide (Magnesium Hydroxide 30 Ml Udc) 30 ml PO DAILY PRN PRN Reason: CONSTIPATION Metoprolol Tartrate (Metoprolol Tartrate 25 Mg Tablet) 25 mg PO BID@0900,2100 [facility] Last Admin: 12/12/20 10:54 Dose: 25 mg Documented by: Midazolam HCl (Midazolam 1 Mg/Ml Inj 2 Ml) 1 mg IVP Q1H PRN PRN Reason: Sedation for Montoya score < 4. Last Admin: 12/09/20 02:03 Dose: 1 mg Documented by: Mupirocin (Mupirocin Oint 22 Gm) 1 applic NASAL BID [facility] Last Admin: 12/08/20 05:57 Dose: 1 applic Documented by: Naloxone HCl (Naloxone 0.4 Mg/Ml Sdv) 0.1 mg IVP Q2M PRN PRN Reason: RESPIRATORY RATE < 8/MIN Naloxone HCl (Naloxone 0.4 Mg/Ml Sdv) 0.1 mg IVP Q2M PRN PRN Reason: OPIATERV Nitroglycerin (Nitroglycerin 0.4 Mg Sublingual Tablet) 0.4 mg SUBLINGUAL Q5M PRN PRN Reason: CHEST PAIN Last Admin: 12/05/20 22:41 Dose: 1 tab Documented by: Ondansetron HCl (Ondansetron 2 Mg/Ml Sdv 2 Ml) 4 mg IVP Q8H PRN PRN Reason: vomiting, or N/V if npo Last Admin: 12/08/20 05:51 Dose: 4 mg Documented by: Ondansetron HCl (Ondansetron 2 Mg/Ml Sdv 2 Ml) 4 mg IVP Q6H PRN PRN Reason: NAUSEA Last Admin: 12/12/20 07:50 Dose: 4 mg Documented by: Oxycodone/Acetaminophen (Oxycodone-Apap 5-325 Mg Tablet) 1 - 2 tab PO Q4H PRN PRN Reason: MODERATE TO SEVERE PAIN Last Admin: 12/12/20 11:59 Dose: 2 tab Documented by: Pantoprazole Sodium (Pantoprazole Dr 40 Mg Tablet) 40 mg PO DAILY [facility] Last Admin: 12/07/20 08:51 Dose: 40 mg Documented by: Zolpidem Tartrate (Zolpidem 10 Mg Tablet) 10 mg PO BEDTIME PRN PRN Reason: Sleep Last Admin: 12/11/20 21:29 Dose: 10 mg Documented by: Vitals/I&O/Wt Last Vital Signs Temp 97.6 F 12/14/20 14:33 Pulse 81 12/14/20 14:33 Resp 19 H 12/14/20 14:33 BP 128/73 12/14/20 14:33 Pulse Ox 94 12/14/20 14:33 12/14/20 12/14/20 12/14/20 06:59 14:59 22:59 Intake Total 100 / 1545 392.917 / 392.917 Balance 100 / 45 392.917 / 392.917 Weight last 48 hrs Weight 214 lb Weight 208 lb 4.8 oz Physical Exam Narrative: EXAM NARRATIVE: GENERAL: Patient is alert, awake and oriented x3. NECK: No jugular vein distension. HEENT: No cyanosis. No icterus. No pallor. HEART: Regular S1 and S2. No murmur, rub or gallop. LUNGS: Clear to auscultate bilaterally. CENTRAL NERVOUS SYSTEM: Grossly nonfocal. EXTREMITIES: Lower extremities without edema bilaterally. Urinary Catheter Management^: Garcia: Cath Placed During This Visit: yes, but has since been removed by the nurse Reason for Continuing Indwelling Catheter: Accurate Measurement of Urinary Output in Critically Ill Patients Urinary Catheter Date of Insertion: 12/08/20 Urinary Catheter Time of Insertion: 08:18 Date Urinary Catheter Removed: 12/12/20 Time Urinary Catheter Discontinued: 15:00 Data : 12/14/20 03:18 12/14/20 03:18 Micro: Microbiology 12/12/20 08:10 Sputum Culture - Final Sputum - Expectorated Sputum A&P Assessment and plan (1) Status post aorto-coronary artery bypass graft: Status post CABG day 5. Stable doing fine from a cardiovascular perspective continue to monitor continue physical therapy most likely discharged home Status: Acute (2) Non-ST elevation [place] (NSTEMI): Stable status post CABG continue current regimen including Plavix Status: Acute (3) Dyslipidemia (high LDL; low HDL): Continue statin. Status: Acute (4) Uncontrolled type 2 diabetes with neuropathy: Continue management as per primary care Status: Chronic Additional A&P Information Based on the clinical progress, further management decisions will be made. Possible transfer to telemetry this afternoon or in the morning Attestations Medical Necessity Statement*: Patient require continuation hospitalization for above defined care. 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
[2020-12-14 17:00] LABS: Glucose Point of Care 136 mg/dL (70-110)
[2020-12-14] MEDS: atorvastatin 40 mg Tablet 20 MG PO (19:51)
[2020-12-14] MEDS: HYDROmorphone 1 mg/mL INJ 1 mL 0.5 MG IVP (19:52)
[2020-12-14 21:28] LABS: Glucose Point of Care 215 mg/dL (70-110)
[2020-12-15] VITALS (15 sets, daily range): BP systolic 110–170; BP diastolic 64–83; PULSE 62–84; RESP 14–21; TEMP 36.5–36.8; O2SAT 94–98
[2020-12-15 03:56] LABS: Basophils # 0.1 10^3/uL (0.0-0.1); Basophils % 0.5 %; Eosinophils # 0.5 10^3/uL (0.0-0.8); Eosinophils % 4.8 %; Hematocrit 29.7 % (37.0-47.0); Hemoglobin 9.3 g/dL (11.5-15.3); Lymphocytes # 2.7 10^3/uL (0.8-4.8); Lymphocytes % 27.1 %; Mean Corpuscular HGB Conc 31.3 g/dL (30.0-36.0); Mean Corpuscular Hemoglobin 29.8 pg (28.0-34.0); Mean Corpuscular Volume 95.2 fL (81-99); Mean Platelet Volume 9.4 fL (7.4-10.4); Monocytes # 0.8 10^3/uL (0.2-0.9); Monocytes % 8.4 %; Neutrophils # 5.81 10^3/uL (1.8-7.7); Neutrophils % 58.1 %; Nucleated Red Blood Cells % 0.2 %; Platelet Count 456 10^3/cmm (130-400); Red Blood Count 3.12 10^6/uL (4.1-5.3); Red Cell Distribution Width 12.9 % (12.1-15.1)
[2020-12-15] MEDS: oxyCODONE-APAP 5-325 mg Tablet PO ×5 (03:58→20:37)
[2020-12-15 04:17] LABS: Alanine Aminotransferase 17 U/L (0-33); Albumin Level 3.1 g/dL (3.5-5.2); Alkaline Phosphatase 184 IU/L (35-105); Anion Gap 10.2 (5-19); Aspartate Amino Transferase 12 U/L (0-32); Blood Urea Nitrogen 9 mg/dL (8-23); Calcium 9.2 mg/dL (8.5-10.5); Carbon Dioxide 31 mmol/L (22-29); Chloride 100 mmol/L (98-107); Glomerular Filtration Rate 158.3 mL/min (90-130); Glucose 142 mg/dL (65-115); Magnesium 1.9 mg/dL (1.7-2.3); Osmolality Calculated 287 mOsm/kg (285-295); Potassium 3.2 mmol/L (3.5-5.1); Sodium 138 mmol/L (136-145); Total Bilirubin 0.6 mg/dL (0.15-1.2); Total Protein 6.1 g/dL (6.6-8.7)
[2020-12-15] MEDS: levothyroxine 75 mcg Tablet 150 MCG PO (05:18)
[2020-12-15 06:58] LABS: Glucose Point of Care 232 mg/dL (70-110)
--- NOTE | 2020-12-15 07:25 | PC.NURSE ---
Patient called out this am about 0600 voicing tightness in chest with breathing. Patient lung sounds clear and SpO2 was at 96 % on RA BP slightly elevated at 146/83 Patient stated that was high for her. Telemetry showing SR with no arrhythmias. Chest wound vac clean dry and intact. Patient had pain medication approximately 0330. No pain reported by patient only tightness and trouble taking a deep breath. Respiratory therapy asked to see and evaluate. Day shift notified. Will continue to monitor and assist as needed following CPOC
[2020-12-15] MEDS: baclofen 10 mg Tablet PO (08:46)
[2020-12-15] MEDS: sennosides-docusate Tablet 1 TAB PO (08:46)
[2020-12-15] MEDS: metoprolol tartrate 25 mg Tablet PO ×2 (08:46→20:35)
[2020-12-15] MEDS: clopidogrel 75 mg Tablet PO (08:46)
[2020-12-15] MEDS: lisinopril 2.5 mg Tablet PO (08:49)
[2020-12-15] MEDS: pantoprazole DR 40 mg Tablet PO (08:52)
[2020-12-15] MEDS: aspirin 81 mg Chew Tablet PO (08:53)
--- NOTE | 2020-12-15 09:28 | DCPLANNER ---
IMM completed on 12/15/20 @ 0847. Copy of rights given to pt.
--- NOTE | 2020-12-15 11:02 | PM.PN ---
Subjective Subjective: Interval history: No new complaints. Feels well overall. Hemodynamically stable. Afebrile. Saturating 98% on room air. Participating with physical therapy. Medications: Reviewed: Yes Vitals/I&O/Wt Last Vital Signs Temp 98.3 F 12/15/20 10:57 Pulse 70 12/15/20 10:57 Resp 18 12/15/20 10:57 BP 126/83 12/15/20 10:57 Pulse Ox 94 12/15/20 10:57 12/14/20 12/15/20 12/15/20 22:59 06:59 14:59 Intake Total 490 / 882.917 200 / 1082.917 360 / 360 Balance 490 / 882.917 200 / 1082.917 360 / 360 Weight last 48 hrs Weight 97.522 kg Weight 97.069 kg Physical Exam Narrative: EXAM NARRATIVE: GEN: Awake, alert and oriented, no acute distress CVS: S1S2 N RS: CTA B/L Chest midline wound VAC dressing noted to be in place. No surrounding cellulitis. Dressing not open for exam. Abd: Soft, nt/nd , bs+ FINANCIAL WRITER: no focal neuro deficits Extremities no edema cyanosis or clubbing. Urinary Catheter Management^: Garcia: Cath Placed During This Visit: yes, but has since been removed by the nurse Reason for Continuing Indwelling Catheter: Accurate Measurement of Urinary Output in Critically Ill Patients Urinary Catheter Date of Insertion: 12/08/20 Urinary Catheter Time of Insertion: 08:18 Date Urinary Catheter Removed: 12/12/20 Time Urinary Catheter Discontinued: 15:00 Data : 12/15/20 03:07 12/15/20 03:07 Micro: Microbiology 12/12/20 08:10 Sputum Culture - Final Sputum - Expectorated Sputum A&P Assessment and plan (1) Non-ST elevation [place] (NSTEMI): -Multivessel CAD -S/P : Coronary artery bypass grafting x3 on 12/08/20 -Continue aspirin, statin, beta-kj -Continue to monitor for chest pain, telemetry monitoring -Heparin for DVT prophylaxis, SCDs Status: Acute (2) Leukocytosis: now resolved Xray chest 12/12 : Persistent mild fluid overload or interstitial edema.Small bilateral pleural effusions.NO consolidation Blood Culture:Negative urine culture:Negative Sputum Cul; MODERATE MIXED UPPER RESPIRATORY IVAN s/p empiric Vanc and Zosyn until 1/24 no current localizing signs or symptoms of infection wound care per surgery Status: Acute (3) Anemia: Normocytic Anemia H/H is stable at 9.3 Status: Acute (4) UTI (urinary tract infection): diagnosed based on +UA , urine culture :Negative s/p empiric vanc/zosyn until 12/10 Status: Acute (5) Transaminitis: Resolved Status: Acute (6) Uncontrolled type 2 diabetes with neuropathy: Usually on insulin and glipizide Hemoglobin A1c 10.7 daily insulin requirement 14-22 units currently. Start Lantus 8 U at bedtime Status: Chronic (7) Hypothyroid: On levothyroxine Status: Acute Qualifiers: Hypothyroidism type: acquired Qualified Code(s): E03.9 - Hypothyroidism, unspecified (8) Fibromyalgia: On hydrocodone and prn baclofen Status: Acute (9) Constipated: Fleet enema Status: Acute Additional A&P Information GI prophylaxis: protonix DVT ppx: lovenox added 12/15 Dispo: home with Attestations Medical Necessity Statement*: post op from CABG, improving, continue PT/OT/wound vac Coding Level of Care Code Acute Health Information Provider for Chg Fwd Diagnoses Non-ST elevation [place] (NSTEMI) I21.4 Leukocytosis D72.829 Anemia D64.9 UTI (urinary tract infection) N39.0 Transaminitis R74.01 Uncontrolled type 2 diabetes with neuropathy E11.40; E11.65 Hypothyroid E03.9 Hypothyroidism type: acquired Fibromyalgia M79.7 Constipated K59.00
[2020-12-15 11:33] LABS: Glucose Point of Care 186 mg/dL (70-110)
[2020-12-15] MEDS: amlodipine 5 mg Tablet PO (12:35)
[2020-12-15] MEDS: enoxaparin 30 mg/0.3 mL Syringe SUBCUT (15:12)
[2020-12-15] MEDS: potassium chloride oral liq 20 mEq/15 mL UDC 40 MEQ PO (15:12)
[2020-12-15 16:09] LABS: Glucose Point of Care 114 mg/dL (70-110)
--- NOTE | 2020-12-15 17:15 | PM.PN ---
Subjective Subjective: Interval history: Postop day #7 status post CABG x3. Up in chair on rounds. No complaints. Much more animated than when I saw her last on Tuesday. Appears eager for discharge. Vitals/I&O/Wt Last Vital Signs Temp 97.7 F 12/15/20 15:09 Pulse 81 12/15/20 15:09 Resp 16 12/15/20 15:09 BP 110/64 12/15/20 15:09 Pulse Ox 95 12/15/20 15:09 12/15/20 12/15/20 12/15/20 06:59 14:59 22:59 Intake Total 200 / 1082.917 480 / 480 Balance 200 / 1082.917 480 / 480 Weight last 48 hrs Weight 215 lb Weight 214 lb Physical Exam Chest: COMMONS NORMALS: normal inspection of the chest and normal palpation of entire chest wall OTHER: Wound VAC dressing was removed. Incision line is clean and intact. Drain sites well approximated. Wound was redressed. Resp: OTHER: Improved pulmonary toilet. Effective cough. Extremity: OTHER: Lower extremity edema has resolved. Urinary Catheter Management^: Garcia: Cath Placed During This Visit: yes, but has since been removed by the nurse Reason for Continuing Indwelling Catheter: Accurate Measurement of Urinary Output in Critically Ill Patients Urinary Catheter Date of Insertion: 12/08/20 Urinary Catheter Time of Insertion: 08:18 Date Urinary Catheter Removed: 12/12/20 Time Urinary Catheter Discontinued: 15:00 Data : 12/15/20 03:07 12/15/20 03:07 A&P Assessment and plan (1) Status post aorto-coronary artery bypass graft: Postop day #7. Progressing well. Recommendation:. May proceed with chlorhexidine shower tomorrow. May discharge at discretion of cardiology and hospitalist service. Follow-up in my clinic in 1 week after discharge. No heavy lifting, pulling, of greater than 5 pounds for the next 6 weeks. May shower daily. No swimming or tub baths x3 weeks. Use incentive spirometer frequently. Patient is to report increased pain, shortness of breath, leg swelling, redness or drainage from incision. Status: Acute Attestations Medical Necessity Statement*: 1 week status post CABG Time Spent in Patient Care: 16 - 35 minutes Coding Level of Care Code Acute Ada Accommodation Consultant for Chg Fwd Diagnoses Status post aorto-coronary artery bypass graft Z95.1
--- NOTE | 2020-12-15 18:41 | PC.NURSE ---
Addendum entered by SN Harris 12/15/20 18:44: Med was administered at 1645. Original Note: Witnessed Xiomara Rousseau RN administer prn oxycodone 5-325 two tablets to pt per report of chest pain related to surgical procedure. Pt swallowed medications without difficulty.
--- NOTE | 2020-12-15 19:23 | P.PN_ITS ---
Subjective Subjective: Interval history: Patient continues the phase 2 cardiac rehab. Denies significant shortness of breath. No significant arrhythmias were noted on the monitor. Vital signs remained stable. Afebrile. Medications: Reviewed: Yes Medication Review Details: Current Medications Alprazolam (Alprazolam 0.25 Mg Tablet) 0.25 mg PO BEDTIME [facility] Last Admin: 12/14/20 19:51 Dose: 0.25 mg Documented by: Amlodipine Besylate (Amlodipine 5 Mg Tablet) 5 mg PO 1200 [facility] Last Admin: 12/15/20 12:35 Dose: 5 mg Documented by: Aspirin (Aspirin 81 Mg Chew Tablet) 81 mg PO DAILY [facility] Last Admin: 12/15/20 08:53 Dose: 81 mg Documented by: Atorvastatin Calcium (Atorvastatin 40 Mg Tablet) 20 mg PO BEDTIME [facility] Last Admin: 12/14/20 19:51 Dose: 20 mg Documented by: Baclofen (Baclofen 10 Mg Tablet) 10 mg PO BID PRN PRN Reason: Muscle Spasm Last Admin: 12/15/20 08:46 Dose: 10 mg Documented by: Chlorhexidine Gluconate (Chlorhexidine Gluconate 0.12% Btl 473 Ml) 15 ml MUCOUS MEM BID [facility] Last Admin: 12/15/20 17:41 Dose: Not Given Documented by: Chlorhexidine Gluconate (Chlorhexidine Gluconate 4% Btl 118 Ml) 1 applic TOPICAL DAILY [facility] Last Admin: 12/15/20 09:07 Dose: Not Given Documented by: Clopidogrel Bisulfate (Clopidogrel 75 Mg Tablet) 75 mg PO DAILY [facility] Last Admin: 12/15/20 08:46 Dose: 75 mg Documented by: Dextrose (Dextrose 50% Syringe 50 Ml) 25 ml IVP ONCE PRN; Protocol PRN Reason: hypoglycemia protocol Dextrose (Dextrose 50% Syringe 50 Ml) 50 ml IVP PRN PRN; Protocol PRN Reason: hypoglycemia protocol Enoxaparin Sodium (Enoxaparin 30 Mg/0.3 Ml Syringe) 30 mg SUBCUT Q24H [facility] Last Admin: 12/15/20 15:12 Dose: 30 mg Documented by: Glucagon (Glucagon 1 Mg/Ml Inj 1 Ml) 1 mg IM ONCE PRN; Protocol PRN Reason: Adult Acute Hypoglycemia Prot. Hydromorphone HCl (Hydromorphone 1 Mg/Ml Inj 1 Ml) 0.5 mg IVP Q4H PRN PRN Reason: pain Last Admin: 12/14/20 19:52 Dose: 0.5 mg Documented by: Dextrose (D5w) 500 mls @ 100 mls/hr IV ONCE PRN; Protocol PRN Reason: Adult Acute Hypoglycemia Prot Insulin Aspart (Insulin Aspart 100 Unit/1 Ml) 0 unit SUBCUT WM&BEDTIME [facility]; Protocol Last Admin: 12/15/20 17:42 Dose: Not Given Documented by: Insulin Glargine (Insulin Glargine 100 Units/1 Ml) 8 unit SUBCUT BEDTIME [facility] Lanolin (Lanolin Oint 7 Gm) 1 applic TOPICAL PRN PRN PRN Reason: DRYNESS Levothyroxine Sodium (Levothyroxine 75 Mcg Tablet) 150 mcg PO QAM [facility] Last Admin: 12/15/20 05:18 Dose: 150 mcg Documented by: Lisinopril (Lisinopril 2.5 Mg Tablet) 2.5 mg PO DAILY [facility] Last Admin: 12/15/20 08:49 Dose: 2.5 mg Documented by: Magnesium Hydroxide (Magnesium Hydroxide 30 Ml Udc) 30 ml PO DAILY PRN PRN Reason: CONSTIPATION Last Admin: 12/14/20 12:37 Dose: 30 ml Documented by: Metoprolol Tartrate (Metoprolol Tartrate 25 Mg Tablet) 25 mg PO BID@0900,2100 [facility] Last Admin: 12/15/20 08:46 Dose: 25 mg Documented by: Mupirocin (Mupirocin Oint 22 Gm) 1 applic NASAL BID [facility] Last Admin: 12/15/20 17:42 Dose: Not Given Documented by: Ondansetron HCl (Ondansetron 2 Mg/Ml Sdv 2 Ml) 4 mg IVP Q6H PRN PRN Reason: NAUSEA Last Admin: 12/13/20 16:25 Dose: 4 mg Documented by: Oxycodone/Acetaminophen (Oxycodone-Apap 5-325 Mg Tablet) 1 - 2 tab PO Q4H PRN PRN Reason: MODERATE TO SEVERE PAIN Last Admin: 12/15/20 16:45 Dose: 2 tab Documented by: Pantoprazole Sodium (Pantoprazole Dr 40 Mg Tablet) 40 mg PO DAILY [facility] Last Admin: 12/15/20 08:52 Dose: 40 mg Documented by: Senna/Docusate Sodium (Sennosides-Docusate Tablet) 1 tab PO DAILY [facility] Last Admin: 12/15/20 08:46 Dose: 1 tab Documented by: Zolpidem Tartrate (Zolpidem 5 Mg Tablet) 10 mg PO BEDTIME PRN PRN Reason: SLEEP Last Admin: 12/14/20 19:51 Dose: 10 mg Documented by: Vitals/I&O/Wt Last Vital Signs Temp 97.7 F 12/15/20 15:09 Pulse 81 12/15/20 15:09 Resp 14 12/15/20 16:45 BP 110/64 12/15/20 15:09 Pulse Ox 94 12/15/20 16:45 12/15/20 12/15/20 12/15/20 06:59 14:59 22:59 Intake Total 200 / 1082.917 480 / 480 360 / 840 Balance 200 / 1082.917 480 / 480 360 / 840 Weight last 48 hrs Weight 215 lb Weight 214 lb Physical Exam Narrative: EXAM NARRATIVE: GENERAL: The patient is alert and oriented x3 HEENT: No significant pallor, icterus or lymphadenopathy. Oral cavity: There are no mucous membrane lesions. NECK: Trachea appears to be central. No JVD. No bleeding at the catheter sites. RESPIRATORY: Patient has a sternal wound VAC. At there is a soft tissue swelling at the upper end of the incision site. Seems to be nontender BREASTS: Deferred. HEART: Heart sounds are normal. No S3. No significant murmurs. No pericardial rub ABDOMEN: Bowel sounds are normally heard. No abdominal distention. : Deferred. RECTAL: Deferred. LYMPHATIC: No lymphadenopathy noted in the neck or groin. EXTREMITIES: Trace edema with no cyanosis. MUSCULOSKELETAL: No acute joint deformities or swelling SKIN: T no rashes or ecchymosis. NEUROPSYCHIATRIC: No focal motor deficits. Const: COMMON NORMALS: alert Resp: COMMON NORMALS: clear to auscultation bilaterally AUSCULTATION: clear to auscultation bilaterally Neuro: SENSORIUM/ORIENTATION: Yes alert Urinary Catheter Management^: Garcia: Cath Placed During This Visit: yes, but has since been removed by the nurse Reason for Continuing Indwelling Catheter: Accurate Measurement of Urinary Output in Critically Ill Patients Urinary Catheter Date of Insertion: 12/08/20 Urinary Catheter Time of Insertion: 08:18 Date Urinary Catheter Removed: 12/12/20 Time Urinary Catheter Discontinued: 15:00 Data : 12/16/20 04:26 12/16/20 04:26 Micro: Microbiology 12/10/20 17:50 Blood Culture - Final Blood NO GROWTH AFTER 5 DAYS 12/10/20 17:50 Blood Culture - Final Blood NO GROWTH AFTER 5 DAYS A&P Assessment and plan (1) Atherosclerotic heart disease of [place] coronary artery without angina pectoris: Patient seems to be doing okay. May continue on the current medications. Status: Acute Qualifiers: [place] vs. transplanted heart: [place] heart Qualified Code(s): I25.10 - Atherosclerotic heart disease of [place] coronary artery without angina pectoris (2) Status post aorto-coronary artery bypass graft: The soft tissue swelling at the sternal wound could be a serosanguineous collection. Dr. Parra will look into this more. Status: Acute (3) Dyslipidemia (high LDL; low HDL): Continue on the current medication. Status: Acute (4) Uncontrolled type 2 diabetes with neuropathy: Management as per the primary Status: Chronic (5) Hypothyroid: Continue on the current medication. Status: Acute Qualifiers: Hypothyroidism type: acquired Qualified Code(s): E03.9 - Hypothyroidism, unspecified (6) Anemia: Postoperative. Seems to be improving. Status: Acute Additional A&P Information Disposition as per Dr. Parra Attestations Medical Necessity Statement*: Disposition as per the primary Coding Level of Care Code Acute Manager Fine for [facility] Fwd Exam Expanded Problem Focused Diagnoses Atherosclerotic heart disease of [place] coronary artery without angina pectoris I25.10 [place] vs. transplanted heart: [place] heart Status post aorto-coronary artery bypass graft Z95.1 Dyslipidemia (high LDL; low HDL) E78.5 Uncontrolled type 2 diabetes with neuropathy E11.40; E11.65 Hypothyroid E03.9 Hypothyroidism type: acquired Anemia D64.9
[2020-12-15] MEDS: ALPRAZolam 0.25 mg Tablet PO (20:35)
[2020-12-15] MEDS: insulin glargine 100 units/1 mL 8 UNIT SUBCUT (20:38)
[2020-12-15] MEDS: atorvastatin 40 mg Tablet 20 MG PO (20:38)
[2020-12-15 23:00] LABS: Glucose Point of Care 242 mg/dL (70-110)
[2020-12-16] VITALS (11 sets, daily range): BP systolic 105–143; BP diastolic 63–79; PULSE 66–81; RESP 15–18; TEMP 36.6–36.7; O2SAT 93–98
[2020-12-16] MEDS: oxyCODONE-APAP 5-325 mg Tablet PO ×4 (00:32→13:08)
[2020-12-16] MEDS: ondansetron 2 mg/ML SDV 2 mL 4 MG IVP (02:54)
[2020-12-16] MEDS: levothyroxine 75 mcg Tablet 150 MCG PO (04:59)
[2020-12-16 05:20] LABS: Basophils # 0.1 10^3/uL (0.0-0.1); Basophils % 0.5 %; Eosinophils # 0.5 10^3/uL (0.0-0.8); Eosinophils % 4.8 %; Hematocrit 28.8 % (37.0-47.0); Hemoglobin 8.9 g/dL (11.5-15.3); Lymphocytes # 2.3 10^3/uL (0.8-4.8); Lymphocytes % 24.7 %; Mean Corpuscular HGB Conc 30.9 g/dL (30.0-36.0); Mean Corpuscular Hemoglobin 29.4 pg (28.0-34.0); Mean Platelet Volume 9.4 fL (7.4-10.4); Monocytes # 0.8 10^3/uL (0.2-0.9); Monocytes % 8.9 %; Neutrophils # 5.66 10^3/uL (1.8-7.7); Neutrophils % 59.8 %; Nucleated Red Blood Cells % 0.2 %; Platelet Count 446 10^3/cmm (130-400); Red Blood Count 3.03 10^6/uL (4.1-5.3); Red Cell Distribution Width 13.1 % (12.1-15.1); White Blood Count 9.5 10^3/uL (4.0-10.0)
[2020-12-16 06:07] LABS: Alanine Aminotransferase 17 U/L (0-33); Albumin Level 3.3 g/dL (3.5-5.2); Alkaline Phosphatase 182 IU/L (35-105); Anion Gap 13.9 (5-19); Aspartate Amino Transferase 15 U/L (0-32); Blood Urea Nitrogen 5 mg/dL (8-23); Calcium 9.5 mg/dL (8.5-10.5); Carbon Dioxide 27 mmol/L (22-29); Chloride 104 mmol/L (98-107); Glomerular Filtration Rate 158.3 mL/min (90-130); Glucose 145 mg/dL (65-115); Magnesium 1.9 mg/dL (1.7-2.3); Osmolality Calculated 292 mOsm/kg (285-295); Potassium 3.9 mmol/L (3.5-5.1); Sodium 141 mmol/L (136-145); Total Bilirubin 0.6 mg/dL (0.15-1.2); Total Protein 6.3 g/dL (6.6-8.7)
[2020-12-16 07:07] LABS: Glucose Point of Care 206 mg/dL (70-110)
[2020-12-16 07:18] LABS: Slide Review Slide Review Perform
--- NOTE | 2020-12-16 09:03 | PC.CHAP ---
Pastoral Care Encounter/Spiritual Assessment Type of Contact [] Declined cartography/mapping technician visit [] Patient/Family/Request visit [] Outpatient visit [x] Follow-up visit [] Physician referral [] Code/Alert [x] Routine visit [] Staff referral [] Actively dying [] Patient sleeping [] Family support [] [] Out of room [] Palliative care [] [] Receiving care in room [] Pre-surgical visit [] Trauma [] Long length of stay [] ICU visit [x] Other: 10 day visit Relational/Emotional Strength [] Patient feels connected with others/family/visitors/staff [] Distress [] Loneliness/isolation [] Abandonment Spirituality of Patient [] Person of Vilma [] Attends Roman Catholic of their Vilma [] Believes in Prayer [] Reads Bible or Holiness materials [] There are Spiritual issues to be addressed Progress Clerk Interventions [x] Prayer [x] Active listening [x] Non-anxious presence [] Spiritual/emotional support [] Crisis/trauma care [] Spiritual counseling [] Bereavement support [] Provided bereavement packet [] Provided Bible/devotional materials [] Provided toy/stuffed animal, coloring book to patient or family member [] Provided Communion [] Anointing/[place] [] Salvation [x] Completed spiritual assessment [] Other: Impact on Illness or Injury [] Angry [] Fearful [] Anxious [] Often cries [] Exhaustion [] Unable to work [] Unable to attend gnosticist [] Unable to walk/stand [] Unable to read [] Unable to drive [] Unable to eat/drink [] Unable to sleep [] Unable to be with family [] Patient intubated [] Other: Summary patient setting up, but not interested in social interaction. Time spent with patient 5 min
[2020-12-16] MEDS: pantoprazole DR 40 mg Tablet PO (09:10)
[2020-12-16] MEDS: clopidogrel 75 mg Tablet PO (09:10)
[2020-12-16] MEDS: sennosides-docusate Tablet 1 TAB PO (09:11)
[2020-12-16] MEDS: mupirocin oint 22 gm 1 APPLIC NASAL (09:11)
[2020-12-16] MEDS: aspirin 81 mg Chew Tablet PO (09:11)
[2020-12-16] MEDS: chlorhexidine gluconate 0.12% Btl 473 mL 15 ML MUCOUS MEM (09:11)
[2020-12-16] MEDS: lisinopril 2.5 mg Tablet PO (09:11)
[2020-12-16] MEDS: metoprolol tartrate 25 mg Tablet PO (09:13)
[2020-12-16] MEDS: chlorhexidine gluconate 4% Btl 118 mL 1 APPLIC TOPICAL (09:26)
--- NOTE | 2020-12-16 10:31 | P.DS_ITS ---
Discharge Providers Date of Admission: 12/06/20 00:06 Date of Discharge: December 16, 2020 Attending Provider at Admission: Faina Gracia MD Attending Provider at Discharge: Pily Gomez MD Primary Care Provider: William Chan MD Diagnoses at Discharge Discharge Diagnosis (1) Atherosclerotic heart disease of [place] coronary artery without angina pectoris: Status: Acute Qualifiers: [place] vs. transplanted heart: [place] heart Qualified Code(s): I25.10 - Atherosclerotic heart disease of [place] coronary artery without angina pectoris (2) Status post aorto-coronary artery bypass graft: Status: Acute (3) Dyslipidemia (high LDL; low HDL): Status: Acute (4) Uncontrolled type 2 diabetes with neuropathy: Status: Chronic (5) Hypothyroid: Status: Acute Qualifiers: Hypothyroidism type: acquired Qualified Code(s): E03.9 - Hypothyroidism, unspecified (6) Anemia: Status: Acute Reason for Visit Reason for Visit: cp Hospital Course Hospital Course Yasmani Teixeira is a 70 year old female who was admitted via the ER on December 07, 2020 after presenting with anterior chest wall pain with radiation into the arm and associated symptoms of diaphoresis and dyspnea. She had ST depression on EKG, troponin elevation diagnosed with an NSTEMI. She underwent a left heart catheterization initially which showed 40% distal left main stenosis and high- grade near 99% stenosis of the LAD, mid vessel disease of 85% and distal disease of 50 to 60%, circumflex from circumflex artery revealed an ostial lesion of 99%. Echocardiogram showed depressed ejection fraction of 40%. CABG was recommended and patient underwent the procedure on December 08, 2020. She tolerated the procedure well overall. She required blood transfusion postoperatively. She was noted to have a persistent right pleural effusion by chest x-ray, thoracentesis was attempted, however there was not enough fluid to remove fluid safely. She had a wound VAC postoperatively over her chest wound which was discontinued on 12/16/2020. He had some postop leukocytosis with leukocytosis up to 15, trended down to normal at the time of discharge. She is working well with PT at the time of discharge, recovered fairly well from her recent surgery and is being discharged today in stable to improved condition. Uncontrolled diabetes mellitus with HbA1c of 10.7, encouraged to follow-up with her regional administrative assistant Dr. Solorio within the next 2 weeks. She is being discharged on aspirin 81 mg, Plavix, metoprolol, atorvastatin, lisinopril and amlodipine. protonix incrased to 40mg daily. f/up with Dr. Pretty in one week. Dr. denis in 3 weeks, Dr. Solorio in 2 weeks Physical Exam Narrative: EXAM NARRATIVE: GEN: Awake, alert and oriented, no acute distress CVS: S1S2 N RS: CTA B/L Abd: Soft, nt/nd , bs+ MULTI SHARE PROGRAM COORDINATOR: no focal neuro deficits Urinary Catheter Management^: Garcia: Cath Placed During This Visit: yes, but has since been removed by the nurse Reason for Continuing Indwelling Catheter: Accurate Measurement of Urinary Output in Critically Ill Patients Urinary Catheter Date of Insertion: 12/08/20 Urinary Catheter Time of Insertion: 08:18 Date Urinary Catheter Removed: 12/12/20 Time Urinary Catheter Discontinued: 15:00 Discharge Data Data Completed and Pending: Completed Studies During Hospitalization Category Date Time Status ASSISTANT FOREMAN request for service Routin e Exams 12/06/20 12:41 Completed XR chest 1V lulu ble [id number] Routine Exams 12/08/20 08:16 Completed XR chest 1V lulu ble [id number] Routine Exams 12/09/20 06:00 Completed XR chest 1V lulu ble [id number] Routine Exams 12/10/20 06:00 Completed XR chest 1V lulu ble [id number] Routine Exams 12/11/20 06:00 Completed XR chest 1V lulu ble [id number] Routine Exams 12/12/20 06:00 Completed XR chest 1V lulu ble [id number] Stat Exams 12/05/20 22:01 Completed XR chest 1V lulu ble [id number] Stat Exams 12/08/20 20:42 Completed CV echo complete* [id number] Routine Ultrasound 12/06/20 02:10 [place] [id number] Routi ne Ultrasound 12/07/20 07:00 Completed US chest 13091 Ro utine Ultrasound 12/12/20 06:52 Completed Pending at discharge Category Date Time Status ABO/Rh Type Routi ne Lab 12/06/20 21:38 Results Complete Crossmat ch Routine Lab 12/07/20 06:00 Results Frozen Plasma FZ <24 1st Cont Routi ne Lab 12/06/20 21:38 Results Leukocyte Reduced RBC Routine Lab 12/07/20 06:00 Results Leukrd/Plat Phere sis 1st Cont Routi ne Lab 12/07/20 06:00 Results Platelets Leuko-R educed Routine Lab 12/08/20 04:03 Results Type and Screen R outine Lab 12/07/20 06:00 Results Labs from last 24 hours 12/16/20 12/16/20 12/16/20 06:51 04:26 04:26 WBC 9.5 RBC 3.03 L Hgb 8.9 L Hct 28.8 L MCV 95.0 MCH 29.4 MCHC 30.9 RDW 13.1 Plt Count 446 H MPV 9.4 Neut % (Auto) 59.8 Lymph % (Auto) 24.7 [place] % (Auto) 8.9 Eos % (Auto) 4.8 Baso % (Auto) 0.5 Neut # (Auto) 5.66 Lymph # (Auto) 2.3 [place] # (Auto) 0.8 Eos # (Auto) 0.5 Baso # (Auto) 0.1 Nucleated RBC % (a uto) 0.2 Nucleated RBCs # 0.0 Sodium 141 Potassium 3.9 Chloride 104 Carbon Dioxide 27 Anion Gap 13.9 BUN 5 L Creatinine 0.4 L GFR Calculation 158.3 H Glucose 145 H POC Glucose 206 H Calculated Osmolal ity 292 Calcium 9.5 Magnesium 1.9 Total Bilirubin 0.6 AST 15 ALT 17 Alkaline Phosphata se 182 H Total Protein 6.3 L Albumin 3.3 L Globulin 3.0 Misc Test Referenc e 12/15/20 12/15/20 12/15/20 20:12 16:04 10:55 WBC RBC Hgb Hct MCV MCH MCHC RDW Plt Count MPV Neut % (Auto) Lymph % (Auto) [place] % (Auto) Eos % (Auto) Baso % (Auto) Neut # (Auto) Lymph # (Auto) [place] # (Auto) Eos # (Auto) Baso # (Auto) Nucleated RBC % (a uto) Nucleated RBCs # Sodium Potassium Chloride Carbon Dioxide Anion Gap BUN Creatinine GFR Calculation Glucose POC Glucose 242 H 114 H 186 H Calculated Osmolal ity Calcium Magnesium Total Bilirubin AST ALT Alkaline Phosphata se Total Protein Albumin Globulin Misc Test Referenc e 12/11/20 19:00 WBC RBC Hgb Hct MCV MCH MCHC RDW Plt Count MPV Neut % (Auto) Lymph % (Auto) [place] % (Auto) Eos % (Auto) Baso % (Auto) Neut # (Auto) Lymph # (Auto) [place] # (Auto) Eos # (Auto) Baso # (Auto) Nucleated RBC % (a uto) Nucleated RBCs # Sodium Potassium Chloride Carbon Dioxide Anion Gap BUN Creatinine GFR Calculation Glucose POC Glucose Calculated Osmolal ity Calcium Magnesium Total Bilirubin AST ALT Alkaline Phosphata se Total Protein Albumin Globulin Misc Test Referenc e See comment Vitals: Last Vital Signs Temp 98 F 12/16/20 03:55 Pulse 80 12/16/20 09:42 Resp 17 12/16/20 09:42 BP 143/63 12/16/20 07:56 Pulse Ox 98 12/16/20 09:42 Discharge Plan Discharge Patient Disposition: Home Health Service Condition: Stable Prescriptions: New amlodipine 5 mg Tablet 5 mg PO 1200 30 Days Qty: 30 RF: 0 aspirin 81 mg Tablet,Chewable 81 mg PO DAILY 30 Days Qty: 30 RF: 0 atorvastatin 40 mg Tablet 20 mg PO BEDTIME 30 Days Qty: 30 RF: 0 clopidogrel 75 mg Tablet 75 mg PO DAILY 30 Days Qty: 30 RF: 0 lisinopril 2.5 mg Tablet 2.5 mg PO DAILY 30 Days Qty: 30 RF: 0 metoprolol tartrate 25 mg Tablet 25 mg PO BID@0900,2100 30 Days Qty: 60 RF: 0 sennosides-docusate sodium 8.6-50 mg Tablet 1 tab PO DAILY PRN (Reason: constipation) 14 Days Qty: 0 RF: 0 oxycodone-acetaminophen 5-325 mg Tablet 1 tab PO Q6H PRN (Reason: Moderate To Severe Pain) 7 Days Qty: 28 RF: 0 Continued levothyroxine 175 mcg tablet 175 mcg PO DAILY RF: 0 glimepiride 4 mg tablet 4 mg PO BIDWMEAL RF: 0 Lantus Solostar U-100 Insulin 100 unit/mL (3 mL) insulin pen 10 unit SUBCUT DAILY RF: 0 zolpidem 10 mg tablet 10 mg PO BEDTIME PRN (Reason: Sleep) RF: 0 Changed pantoprazole 20 mg tablet,delayed release (DR/EC) 40 mg PO DAILY Qty: 0 RF: 0 Discontinued (DME) blood-glucose meter Misc See Rx Instructions .ROUTE .MEDSUPPLY Qty: 1 RF: 0 (DME) Advocate Redi-Code Strip See Rx Instructions .ROUTE .MEDSUPPLY Qty: 60 RF: 3 aspirin 325 mg Tablet 325 mg PO DAILY RF: 0 hydrocodone-acetaminophen 10-325 mg tablet 1 tab PO Q6H PRN (Reason: Pain) RF: 0 Discharge Orders: Discharge Order (Routine); Ordered 12/16/20 Ordered By: Pily Gomez Referrals: Rey Denis MD [Physician] - 2 weeks (Please follow-up with Dr. Denis on December 30 at 10:00a.m. If you have any questions or need to reschedule. Please call ) David Parra MD [Physician] - 1 week (Please follow-up with Dr. Parra on December 25 at 12:00p.m. If you have any questions or need to reschedule. Please call ) William Chan MD [Primary Care Provider] - 7-10 days (Please follow-up with Dr. Chan on December 23 at 1:40p.m. If you have any questions or need to reschedule. Please call ) Discharge Diet: Cardiac, Diabetic, Low Salt and Low Cholesterol Discharge Activity: Limit activity as instructed Patient Instructions: Metoprolol (By mouth), Lisinopril (By mouth), Oxycodone/Acetaminophen (By mouth), Amlodipine (By mouth), Atorvastatin (By mouth), Clopidogrel (By mouth), Coronary Artery Bypass Graft (DC), Left Heart Catheterization (DC), Right Heart Catheterization (DC), Urinary Tract Infection in Women (DC), Acute Wound Care (DC), Anemia (DC), Post Angiogram Home Care Instructions Activity Restrictions/Additional Instructions: Follow-up in my clinic, Dr. Parra at [facility], in 1 week after discharge. No heavy lifting, pulling, of greater than 5 pounds for the next 6 weeks. May shower daily. No swimming or tub baths x3 weeks. Use incentive spirometer frequently. Patient is to report increased pain, shortness of breath, leg swelling, redness or drainage from incision. Wear surgical bra daily, including at night, will take 6 weeks, except for personal cleaning or showers. Bra may be washed as needed. Discharge Attestations Time Spent in Discharge Care*: greater than 30 min Specific Discharge Activities: educating patient, discussing with pcp/other providers, documenting/other paperwork and evaluating patient/reviewing data Status at Discharge: Cognitive status at discharge: cognitively intact , Behavioral status at discharge: cooperative , Functional status at discharge: independent ambulation Overall status at discharge: patient is progressing back to baseline Quality Metrics Clinical Quality Measures During this hospital stay, did patient experience: AMI Clinical Trial Participant: No Contraindication to aspirin (AMI): Aspirin given Contraindication to statin: Statin prescribed Contraindication to PCI: PCI performed Coding Level of Care Code 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 transplanted heart: [place] heart Status post aorto-coronary artery bypass graft Z95.1 Dyslipidemia (high LDL; low HDL) E78.5 Uncontrolled type 2 diabetes with neuropathy E11.40; E11.65 Hypothyroid E03.9 Hypothyroidism type: acquired Anemia D64.9
[2020-12-16 11:32] LABS: Glucose Point of Care 193 mg/dL (70-110)
--- NOTE | 2020-12-16 12:13 | P.PN_ITS ---
Subjective Subjective: Interval history: Patient is feeling much better. She is ambulating on telemetry with no significant symptoms. Vital signs remained stable. She is afebrile. No new symptoms. Medications: Reviewed: Yes Medication Review Details: Current Medications Alprazolam (Alprazolam 0.25 Mg Tablet) 0.25 mg PO BEDTIME [facility] Last Admin: 12/15/20 20:35 Dose: 0.25 mg Documented by: Amlodipine Besylate (Amlodipine 5 Mg Tablet) 5 mg PO 1200 [facility] Last Admin: 12/15/20 12:35 Dose: 5 mg Documented by: Aspirin (Aspirin 81 Mg Chew Tablet) 81 mg PO DAILY [facility] Last Admin: 12/16/20 09:11 Dose: 81 mg Documented by: Atorvastatin Calcium (Atorvastatin 40 Mg Tablet) 20 mg PO BEDTIME [facility] Last Admin: 12/15/20 20:38 Dose: 20 mg Documented by: Baclofen (Baclofen 10 Mg Tablet) 10 mg PO BID PRN PRN Reason: Muscle Spasm Last Admin: 12/15/20 08:46 Dose: 10 mg Documented by: Chlorhexidine Gluconate (Chlorhexidine Gluconate 0.12% Btl 473 Ml) 15 ml MUCOUS MEM BID [facility] Last Admin: 12/16/20 09:11 Dose: 1 applic Documented by: Chlorhexidine Gluconate (Chlorhexidine Gluconate 4% Btl 118 Ml) 1 applic TOPICAL DAILY [facility] Last Admin: 12/16/20 09:14 Dose: Not Given Documented by: Chlorhexidine Gluconate (Chlorhexidine Gluconate 4% Btl 118 Ml) 1 applic TOPICAL DAILY [facility] Last Admin: 12/16/20 09:26 Dose: 1 applic Documented by: Clopidogrel Bisulfate (Clopidogrel 75 Mg Tablet) 75 mg PO DAILY [facility] Last Admin: 12/16/20 09:10 Dose: 75 mg Documented by: Dextrose (Dextrose 50% Syringe 50 Ml) 25 ml IVP ONCE PRN; Protocol PRN Reason: hypoglycemia protocol Dextrose (Dextrose 50% Syringe 50 Ml) 50 ml IVP PRN PRN; Protocol PRN Reason: hypoglycemia protocol Enoxaparin Sodium (Enoxaparin 30 Mg/0.3 Ml Syringe) 30 mg SUBCUT Q24H [facility] Last Admin: 12/15/20 15:12 Dose: 30 mg Documented by: Glucagon (Glucagon 1 Mg/Ml Inj 1 Ml) 1 mg IM ONCE PRN; Protocol PRN Reason: Adult Acute Hypoglycemia Prot. Hydromorphone HCl (Hydromorphone 1 Mg/Ml Inj 1 Ml) 0.5 mg IVP Q4H PRN PRN Reason: pain Last Admin: 12/14/20 19:52 Dose: 0.5 mg Documented by: Dextrose (D5w) 500 mls @ 100 mls/hr IV ONCE PRN; Protocol PRN Reason: Adult Acute Hypoglycemia Prot Insulin Aspart (Insulin Aspart 100 Unit/1 Ml) 0 unit SUBCUT WM&BEDTIME [facility]; Protocol Last Admin: 12/16/20 07:54 Dose: 8 unit Documented by: Insulin Glargine (Insulin Glargine 100 Units/1 Ml) 8 unit SUBCUT BEDTIME [facility] Last Admin: 12/15/20 20:38 Dose: 8 unit Documented by: Lanolin (Lanolin Oint 7 Gm) 1 applic TOPICAL PRN PRN PRN Reason: DRYNESS Levothyroxine Sodium (Levothyroxine 75 Mcg Tablet) 150 mcg PO QAM [facility] Last Admin: 12/16/20 04:59 Dose: 150 mcg Documented by: Lisinopril (Lisinopril 2.5 Mg Tablet) 2.5 mg PO DAILY [facility] Last Admin: 12/16/20 09:11 Dose: 2.5 mg Documented by: Magnesium Hydroxide (Magnesium Hydroxide 30 Ml Udc) 30 ml PO DAILY PRN PRN Reason: CONSTIPATION Last Admin: 12/14/20 12:37 Dose: 30 ml Documented by: Metoprolol Tartrate (Metoprolol Tartrate 25 Mg Tablet) 25 mg PO BID@0900,2100 [facility] Last Admin: 12/16/20 09:13 Dose: 25 mg Documented by: Mupirocin (Mupirocin Oint 22 Gm) 1 applic NASAL BID [facility] Last Admin: 12/16/20 09:11 Dose: 1 applic Documented by: Ondansetron HCl (Ondansetron 2 Mg/Ml Sdv 2 Ml) 4 mg IVP Q6H PRN PRN Reason: NAUSEA Last Admin: 12/16/20 02:54 Dose: 4 mg Documented by: Oxycodone/Acetaminophen (Oxycodone-Apap 5-325 Mg Tablet) 1 - 2 tab PO Q4H PRN PRN Reason: MODERATE TO SEVERE PAIN Last Admin: 12/16/20 09:10 Dose: 2 tab Documented by: Pantoprazole Sodium (Pantoprazole Dr 40 Mg Tablet) 40 mg PO DAILY [facility] Last Admin: 12/16/20 09:10 Dose: 40 mg Documented by: Senna/Docusate Sodium (Sennosides-Docusate Tablet) 1 tab PO DAILY [facility] Last Admin: 12/16/20 09:11 Dose: 1 tab Documented by: Zolpidem Tartrate (Zolpidem 5 Mg Tablet) 10 mg PO BEDTIME PRN PRN Reason: SLEEP Last Admin: 12/14/20 19:51 Dose: 10 mg Documented by: Vitals/I&O/Wt Last Vital Signs Temp 98 F 12/16/20 03:55 Pulse 80 12/16/20 09:42 Resp 17 12/16/20 09:42 BP 143/63 12/16/20 07:56 Pulse Ox 98 12/16/20 09:42 12/15/20 12/16/20 12/16/20 22:59 06:59 14:59 Intake Total 360 / 840 250 / 1090 360 / 360 Balance 360 / 840 250 / 1090 360 / 360 Weight last 48 hrs Weight 210 lb Weight 210 lb 4.8 oz Weight 215 lb Physical Exam Narrative: EXAM NARRATIVE: GENERAL: The patient is alert and oriented x3 HEENT: No significant pallor, icterus or lymphadenopathy. Oral cavity: There are no mucous membrane lesions. NECK: Trachea appears to be central. No JVD. No bleeding at the catheter sites. RESPIRATORY: Breath sounds are heard bilaterally with no rales or rhonchi BREASTS: Deferred. HEART: Heart sounds are normal. No S3. No significant murmurs. No pericardial rub ABDOMEN: Bowel sounds are normally heard. No abdominal distention. : Deferred. RECTAL: Deferred. LYMPHATIC: No lymphadenopathy noted in the neck or groin. EXTREMITIES: Trace edema with no cyanosis. MUSCULOSKELETAL: No acute joint deformities or swelling SKIN: T no rashes or ecchymosis. NEUROPSYCHIATRIC: No focal motor deficits. Const: COMMON NORMALS: alert Resp: COMMON NORMALS: clear to auscultation bilaterally AUSCULTATION: clear to auscultation bilaterally Neuro: SENSORIUM/ORIENTATION: Yes alert Urinary Catheter Management^: Garcia: Cath Placed During This Visit: yes, but has since been removed by the nurse Reason for Continuing Indwelling Catheter: Accurate Measurement of Urinary Output in Critically Ill Patients Urinary Catheter Date of Insertion: 12/08/20 Urinary Catheter Time of Insertion: 08:18 Date Urinary Catheter Removed: 12/12/20 Time Urinary Catheter Discontinued: 15:00 Data : 12/16/20 04:26 12/16/20 04:26 Other Labs: Laboratory Last Values WBC 9.5 10^3/uL (4.0-10.0) 12/16/20 04:26 RBC 3.03 10^6/uL (4.1-5.3) L 12/16/20 04:26 Hgb 8.9 g/dL (11.5-15.3) L 12/16/20 04:26 Hct 28.8 % (37.0-47.0) L 12/16/20 04:26 MCV 95.0 fL (81-99) 12/16/20 04:26 MCH 29.4 pg (28.0-34.0) 12/16/20 04:26 MCHC 30.9 g/dL (30.0-36.0) 12/16/20 04:26 RDW 13.1 % (12.1-15.1) 12/16/20 04:26 Plt Count 446 10^3/cmm (130-400) H 12/16/20 04:26 MPV 9.4 fL (7.4-10.4) 12/16/20 04:26 Neut % (Auto) 59.8 % 12/16/20 04:26 Lymph % (Auto) 24.7 % 12/16/20 04:26 [place] % (Auto) 8.9 % 12/16/20 04:26 Eos % (Auto) 4.8 % 12/16/20 04:26 Baso % (Auto) 0.5 % 12/16/20 04:26 Neut # (Auto) 5.66 10^3/uL (1.8-7.7) 12/16/20 04:26 Lymph # (Auto) 2.3 10^3/uL (0.8-4.8) 12/16/20 04:26 [place] # (Auto) 0.8 10^3/uL (0.2-0.9) 12/16/20 04:26 Eos # (Auto) 0.5 10^3/uL (0.0-0.8) 12/16/20 04:26 Baso # (Auto) 0.1 10^3/uL (0.0-0.1) 12/16/20 04:26 Nucleated RBC % (auto) 0.2 % 12/16/20 04:26 Nucleated RBCs # 0.0 /100WBC 12/16/20 04:26 PT 15.10 SECONDS (12.1-14.9) H 12/09/20 04:05 INR 1.15 (0.8-1.2) 12/09/20 04:05 APTT 33.4 SECONDS (23.9-36.7) 12/09/20 04:05 Specimen Type Arterial 12/09/20 04:26 Sample Site Not specified 12/09/20 04:26 ABG pH 7.44 (7.35-7.45) 12/09/20 04:26 ABG pCO2 33.7 mmHg (35-45) L 12/09/20 04:26 ABG pO2 73.5 mmHg (80.0-100.0) L 12/09/20 04:26 ABG HCO3 22.9 mmol/L (22-26) 12/09/20 04:26 ABG O2 Saturation 95.2 12/09/20 04:26 ABG Base Excess -0.9 mmol/L (-2.0-2.0) 12/09/20 04:26 Haroldo Test Pos 12/09/20 04:26 A-a O2 Gradient 22.2 mmHg (5-10) H 12/09/20 04:26 Hematocrit 25.8 % (37-47) L 12/09/20 04:26 Hgb O2 Saturation 93.8 % (95-100) L 12/09/20 04:26 Carboxyhemoglobin 0.2 %THgb (0.4-20.1) L 12/09/20 04:26 Methemoglobin 1.2 % (0.4-1.5) 12/09/20 04:26 Total Hemoglobin 8.4 g/dL (12-16) L 12/09/20 04:26 Sodium 145.0 mmol/L (131-143) H 12/09/20 04:26 Potassium 3.6 mmol/L (3.5-5.0) 12/09/20 04:26 Glucose 117.0 mg/dL (70-115) H 12/09/20 04:26 Ionized Calcium 1.2 mmol/L (1.1-1.4) 12/09/20 04:26 O2 Delivery Device Vent 12/09/20 04:26 FiO2 40.0 % 12/09/20 04:26 Tidal Volume 0.50 12/09/20 04:26 PEEP 5.0 cmH20 12/09/20 04:26 Rrt ID Kian 12/09/20 04:26 Sodium 141 mmol/L (136-145) 12/16/20 04:26 Potassium 3.9 mmol/L (3.5-5.1) 12/16/20 04:26 Chloride 104 mmol/L (98-107) 12/16/20 04:26 Carbon Dioxide 27 mmol/L (22-29) 12/16/20 04:26 Anion Gap 13.9 (5-19) 12/16/20 04:26 BUN 5 mg/dL (8-23) L 12/16/20 04:26 Creatinine 0.4 mg/dL (0.5-0.9) L 12/16/20 04:26 GFR Calculation 158.3 mL/min (90-130) H 12/16/20 04:26 Glucose 145 mg/dL (65-115) H 12/16/20 04:26 POC Glucose 193 mg/dL (70-110) H 12/16/20 11:29 Fasting Glucose Cancelled 12/09/20 04:05 Estimat Average Glucose 260 12/06/20 05:20 Hemoglobin A1c 10.7 % (4.0-6.0) H 12/06/20 05:20 Calculated Osmolality 292 mOsm/kg (285-295) 12/16/20 04:26 Lactic Acid 1.0 mmol/L (0.5-2.2) 12/10/20 17:30 Calcium 9.5 mg/dL (8.5-10.5) 12/16/20 04:26 Phosphorus 3.7 mg/dL (2.5-4.5) 12/13/20 04:14 Magnesium 1.9 mg/dL (1.7-2.3) 12/16/20 04:26 Total Bilirubin 0.6 mg/dL (0.15-1.2) 12/16/20 04:26 Direct Bilirubin 0.20 mg/dL (0.00-0.30) 12/07/20 04:40 AST 15 U/L (0-32) 12/16/20 04:26 ALT 17 U/L (0-33) 12/16/20 04:26 Alkaline Phosphatase 182 IU/L (35-105) H 12/16/20 04:26 Troponin T Baseline 13 ng/L (0-10) H 12/05/20 22:28 Troponin T 120 Minute 60.20 ng/L (0-10) H 12/06/20 00:22 Delta Troponin T 47.20 ABS# (0-10) H* 12/06/20 00:22 Troponin T Hi Sens 6Hr 79.14 ng/L (0-10) H 12/06/20 05:20 Troponin T Hi Sens 6Hr Delta 66.14 ng/L (0-12) H* 12/06/20 05:20 NT-Pro-B Natriuret Pep 278 pg/mL (0-125) H 12/06/20 05:20 Total Protein 6.3 g/dL (6.6-8.7) L 12/16/20 04:26 Albumin 3.3 g/dL (3.5-5.2) L 12/16/20 04:26 Globulin 3.0 g/dL (1.3-4.6) 12/16/20 04:26 Triglycerides 150 mg/dL (0-150) 12/06/20 05:20 Cholesterol 205 mg/dL (0-200) H 12/06/20 05:20 LDL Cholesterol, Calc 130 mg/dL (50-129) H 12/06/20 05:20 HDL Cholesterol 45 mg/dL (60-100) L 12/06/20 05:20 LDL/HDL Ratio 2.89 RATIO (0.00-3.22) 12/06/20 05:20 Cholesterol/HDL Ratio 4.56 mg/dL (0.0-4.40) H 12/06/20 05:20 Lipase 27 U/L (13-60) 12/05/20 22:28 Procalcitonin 0.25 ng/mL (0-0.5) 12/10/20 17:50 TSH 0.02 uIU/mL (0.27-4.20) L 12/07/20 04:40 Free T4 1.45 ng/dL (0.82-1.77) 12/07/20 04:40 Urine Color Yellow (Yellow) 12/08/20 06:30 Urine Appearance Hazy (CLEAR) A 12/08/20 06:30 Urine pH 5 (5-7) 12/08/20 06:[address] 1.020 (1.005-1.030) 12/08/20 06:30 Urine Protein Neg (Negative) 12/08/20 06:30 Urine Glucose (UA) 1+ (Normal) 12/08/20 06:30 Urine Ketones Negative (Negative) 12/08/20 06:30 Urine Blood 2+ (Negative) H 12/08/20 06:30 Urine Nitrate Negative (Negative) 12/08/20 06:30 Urine Bilirubin Neg (Negative) 12/08/20 06:30 Urine Urobilinogen Norm mg/dL (Negative) 12/08/20 06:30 Ur Leukocyte Esterase 2+ (Negative) H 12/08/20 06:30 Urine RBC 0-4 /hpf (0-2) H 12/08/20 06:30 Urine WBC 55-80 /hpf (0-5) H 12/08/20 06:30 Ur Squamous Epith Cells 25-40 /hpf (0-5) H 12/08/20 06:30 Amorphous Sediment Not Reportable 12/08/20 06:30 Urine Bacteria 1+ /hpf (NONE) H 12/08/20 06:30 Vancomycin Trough 11.4 ug/mL (10-15) 12/11/20 16:40 Misc Test Reference See comment 12/11/20 19:00 Blood Type O Positive 12/06/20 21:38 Rho(D) Type Positive 12/06/20 21:38 Antibody Screen Negative 12/06/20 21:38 Crossmatch See Detail 12/06/20 21:38 Micro: Microbiology 12/10/20 17:50 Blood Culture - Final Blood NO GROWTH AFTER 5 DAYS 12/10/20 17:50 Blood Culture - Final Blood NO GROWTH AFTER 5 DAYS A&P Assessment and plan (1) Atherosclerotic heart disease of [place] coronary artery without angina pectoris: Patient seems to be doing okay. May continue on the current medications. Status: Resolved Qualifiers: [place] vs. transplanted heart: [place] heart Qualified Code(s): I25.10 - Atherosclerotic heart disease of [place] coronary artery without angina pectoris (2) Status post aorto-coronary artery bypass graft: The soft tissue swelling at the sternal wound could be a serosanguineous collection. Dr. Parra will look into this more. Status: Acute (3) Dyslipidemia (high LDL; low HDL): Continue on the current medication. Status: Acute (4) Uncontrolled type 2 diabetes with neuropathy: Management as per the primary Status: Chronic (5) Hypothyroid: Continue on the current medication. Status: Acute Qualifiers: Hypothyroidism type: acquired Qualified Code(s): E03.9 - Hypothyroidism, unspecified (6) Anemia: Postoperative. Seems to be improving. Status: Resolved Additional A&P Information If the patient continues remain stable, may be discharged home from a cardiac standpoint.I may see the patient in the office in 3 weeks. Attestations Medical Necessity Statement*: Disposition as per the primary Coding Level of Care Code Acute [employer] for [employer] F[employer] History Detailed Exam Detailed Medical Decision Making Moderate Complexity Diagnoses Atherosclerotic heart disease of [place] coronary artery without angina pectoris I25.10 [place] vs. transplanted heart: [place] heart Status post aorto-coronary artery bypass graft Z95.1 Dyslipidemia (high LDL; low HDL) E78.5 Uncontrolled type 2 diabetes with neuropathy E11.40; E11.65 Hypothyroid E03.9 Hypothyroidism type: acquired Anemia D64.9 Time Spent (min) 25
[2020-12-16] MEDS: amlodipine 5 mg Tablet PO (12:17)
== END 2020-12-16 13:45 | disposition home health service (06) | DRG 234 ==
LOC: ER 12-06 → MEDSURG 12-06 01:24 → ICU 12-06 14:21 → CSU 12-13 21:09
PROVIDERS: Family Medicine; Internal Medicine; Internal Medicine Cardiovascular Disease; Thoracic Surgery (Cardiothoracic Vascular Surgery); Admitting Provider Hospitalist; Emergency Provider Emergency Medicine; PCP Family Medicine; Visit Provider Student in an Organized Health Care Education/Training Program
PROC: 4A023N7 Measurement of Cardiac Sampling and Pressure, Left Heart, Percutaneous Approach (ICD-10-PCS; principal; 2020-12-06 13:00)
PROC: 02100Z9 Bypass Coronary Artery, One Artery from Left Internal Mammary, Open Approach (ICD-10-PCS; principal; 2020-12-08 09:00)
DX: I21.4 Non-ST elevation (NSTEMI) myocardial infarction (principal); N39.0 Urinary tract infection, site not specified; J90 Pleural effusion, not elsewhere classified; I25.110 Atherosclerotic heart disease of native coronary artery with unstable angina pectoris; E11.65 Type 2 diabetes mellitus with hyperglycemia; E11.40 Type 2 diabetes mellitus with diabetic neuropathy, unspecified; E78.00 Pure hypercholesterolemia, unspecified; M79.7 Fibromyalgia; E78.5 Hyperlipidemia, unspecified; E03.9 Hypothyroidism, unspecified; Z85.43 Personal history of malignant neoplasm of ovary; Z87.891 Personal history of nicotine dependence; I25.2 Old myocardial infarction; Z82.49 Family history of ischemic heart disease and other diseases of the circulatory system; K59.00 Constipation, unspecified
CPT/HCPCS: 12345; 32555; 36415; 36416; 36430; 36592; 51702; 71045; 76604; 80048; 80051; 80053; 80061; 80076; 80202; 81001; 82330; 82803; 82805; 82962; 83036; 83605; 83690; 83735; 83880; 84100; 84145; 84439; 84443; 84484; 85025; 85347; 85610; 85730; 86850; 86900; 86920; 86927; 87040; 87070; 87081; 87086; 93005; 93306; 93452; 93970; 94002; 94003; 94640; 94799; 96372; 97110; 97116; 97163; 97167; 97530; 97535; 99283; C1769; C1887; C1894; J0171; J0697; J1170; J1250; J1644; J1650; J1815 ×2; J1940; J2001; J2150; J2250; J2270; J2370; J2405; J2440; J2543; J2704; J2720; J3010; J3370; J3475; J3480; J3490; J7030; J7040; J7050; P9016; P9017; P9041; P9047; Q9967

== ENCOUNTER → 2021-01-16 10:13 | Outpatient (BNVA) | payer MEDICARE, BC, SELFPAY | PROVIDERS: PCP Family Medicine; Visit Provider Internal Medicine | DX: E03.9 Hypothyroidism, unspecified (principal); E11.40 Type 2 diabetes mellitus with diabetic neuropathy, unspecified; E11.65 Type 2 diabetes mellitus with hyperglycemia; R74.01 Elevation of levels of liver transaminase levels; R74.02 Elevation of levels of lactic acid dehydrogenase [LDH] | CPT/HCPCS: 99214 ==

== ENCOUNTER 2021-02-01 20:35 | Emergency (ER) | payer MEDICARE, BC, SELFPAY ==
[2021-02-01 20:49] VITALS: BP 147/84; PULSE 98; RESP 18; TEMP 36.8; O2SAT 96; BMI 28.6
[2021-02-01 21:23] VITALS: BP 144/111; PULSE 91; RESP 18; O2SAT 94
--- NOTE | 2021-02-01 21:57 | CTR_ITS ---
PROCEDURE INFORMATION: Exam: CT Head Without Contrast Exam date and time: 02/01/2021 10:20 PM Age: 70 years old Clinical indication: Pain; Headache not specified; Patient HX: C/O ONEAL w n/v TECHNIQUE: Imaging protocol: Computed tomography of the head without contrast. Radiation optimization: All CT scans at this facility use at least one of these dose optimization techniques: automated exposure control; mA and/or kV adjustment per patient size (includes targeted exams where dose is matched to clinical indication); or iterative reconstruction. COMPARISON: No relevant prior studies available. RADIATION DOSE METRICS: Total DLP (mGy-cm): 767.94 FINDINGS: Brain: Normal. No hemorrhage. Unremarkable white matter. No mass effect. Cerebral ventricles: No ventriculomegaly. Bones/joints: Unremarkable. No acute fracture. Paranasal sinuses: Visualized sinuses are unremarkable. No fluid levels. Mastoid air cells: Visualized mastoid air cells are well aerated. Soft tissues: Unremarkable. CT/CT head wo con* [id number] IMPRESSION: Negative for intracranial hemorrhage or mass effect Radiation Dose CTDIVOL = (mGy): DLP = 767.94 (mGy-cm)
--- NOTE | 2021-02-01 21:59 | ECG_ITS ---
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 Measurements Intervals [place] Rate: 105 P: 55 VT: 143 QRS: 6 QRSD: 89 T: 81 QT: 344 QTc: 456 Interpretive Statements SINUS TACHYCARDIA POSSIBLE LEFT ATRIAL ENLARGEMENT [-0.1mV P WAVE IN V1/V2] NONSPECIFIC T-WAVE ABNORMALITY ABNORMAL RHYTHM ECG WARNING: DATA QUALITY MAY AFFECT INTERPRETATION Compared to ECG 12/09/2020 06:13:42 Sinus rhythm no longer present Possible ischemia no longer present T-wave abnormality still present Electronically Signed On 02-02-2021 23:47:44 CDT by Rey Denis M.D. [id number]
[2021-02-01 22:04] VITALS: BP 171/88; PULSE 90; RESP 15; O2SAT 95
[2021-02-01 22:07] LABS: Basophils % 0.3 %; Eosinophils # 0.2 10^3/uL (0.0-0.8); Eosinophils % 1.7 %; Hematocrit 39.5 % (37.0-47.0); Hemoglobin 12.6 g/dL (11.5-15.3); Lymphocytes # 1.5 10^3/uL (0.8-4.8); Lymphocytes % 12.1 %; Mean Corpuscular HGB Conc 31.9 g/dL (30.0-36.0); Mean Corpuscular Volume 87.8 fL (81-99); Mean Platelet Volume 9.5 fL (7.4-10.4); Monocytes # 0.8 10^3/uL (0.2-0.9); Monocytes % 6.4 %; Neutrophils # 9.54 10^3/uL (1.8-7.7); Neutrophils % 79.3 %; Nucleated Red Blood Cells % 0 %; Platelet Count 262 10^3/cmm (130-400); Red Cell Distribution Width 13.3 % (12.1-15.1)
[2021-02-01] MEDS: sodium chloride 0.9% 1,000 ML 999 ML IV (22:12)
[2021-02-01] MEDS: ondansetron 2 mg/ML SDV 2 mL 8 MG IVP (22:12)
[2021-02-01 22:13] VITALS: RESP 17; O2SAT 95
[2021-02-01] MEDS: fentaNYL 50 mcg/mL INJ 2mL IVP (22:13)
[2021-02-01 22:23] LABS: Alanine Aminotransferase 19 U/L (0-33); Albumin Level 3.9 g/dL (3.5-5.2); Alkaline Phosphatase 118 IU/L (35-105); Anion Gap 15.5 (5-19); Aspartate Amino Transferase 19 U/L (0-32); Blood Urea Nitrogen 11 mg/dL (8-23); Calcium 9.6 mg/dL (8.5-10.5); Carbon Dioxide 27 mmol/L (22-29); Chloride 100 mmol/L (98-107); Globulin 3.1 g/dL (1.3-4.6); Glomerular Filtration Rate 62.1 mL/min (90-130); Glucose 198 mg/dL (65-115); Lipase 17 U/L (13-60); Osmolality Calculated 291 mOsm/kg (285-295); Potassium 4.5 mmol/L (3.5-5.1); Sodium 138 mmol/L (136-145); Total Bilirubin 0.5 mg/dL (0.15-1.2)
[2021-02-01 22:25] LABS: Troponin(5th) Baseline 16 ng/L (0-10)
[2021-02-01 22:30] VITALS: BP 155/78; PULSE 91; RESP 15; O2SAT 95
[2021-02-01 23:00] VITALS: BP 163/93; PULSE 87; RESP 14; O2SAT 94
--- NOTE | 2021-02-01 23:59 | ECG_ITS ---
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 Measurements Intervals [place] Rate: 77 P: 51 TN: 146 QRS: 72 QRSD: 104 T: 37 QT: 382 QTc: 434 Interpretive Statements SINUS RHYTHM Compared to ECG 02/26/2021 17:08:13 T-wave abnormality no longer present Electronically Signed On 04-16-2021 18:34:05 CDT by Nguyen Swanson M.D. [email or web address] Roboticsselect medical [id number]
[2021-02-02] VITALS: BP 155/95; PULSE 84; RESP 12; O2SAT 95
[2021-02-02 01:00] VITALS: BP 155/95; PULSE 86; RESP 12; TEMP 36.8; O2SAT 95
--- NOTE | 2021-02-02 03:36 | W.ED.NAVMDI ---
HPI - Nausea/Vomiting/Diarrhea General: Chief complaint: Nausea/Vomiting/Diarrhea Stated complaint: n/v every 30 min Time Seen by Provider: 02/01/21 21:02 History of Present Illness: HPI Narrative: 70-year-old female with a history of a CABG 6 weeks ago. She presents with a headache, that she had when she woke from bed this morning with development of vomiting that had been increasing in frequency. She states the vomiting causes diffuse belly and chest pain over the course of the day. She has not vomited since she got into the room, but has multiple episodes of vomiting previously in the day. She denies overt chest pain when not vomiting. MD elicited complaint: nausea and vomiting Onset (ago): hour(s) Description of vomiting: food contents and bilious Associated nausea: Yes Location of pain: Diffuse Pain consistency: constant Quality: aching Associated symtoms: Reports diaphoresis, headache(s), nausea and weakness (Generalized); Denies altered mental status, change in vision, chest pain (When not vomiting), cough, dysuria or fevers/chills Review of Systems Const: Reports: body aches and diaphoresis; Denies: fever(s) Eyes: Denies: change in vision Card: Denies: chest pain (When not vomiting) Resp: Denies: dyspnea, productive cough or wheezing GI: Reports: nausea : Denies: dysuria Neuro: Reports: headache(s) PFSH ED PFSH: Medical History Fibromyalgia On as needed hydrocodone and baclofen Hyperlipidemia Not currently on treatment Hypothyroid Ovarian cancer Treated with hysterectomy with salpingo-oophorectomy Uncontrolled type 2 diabetes with neuropathy Surgical History H/O: hysterectomy History of tonsillectomy Hx of appendectomy Hx of cholecystectomy Family History Sister Cancer uterine/cervix CAD (coronary artery disease) Diabetes Mother Cancer cervix Father CAD (coronary artery disease) Brother CAD (coronary artery disease) Diabetes Grandmother Diabetes Denies family history of Clotting disorder Dementia Chronic kidney disease (CKD) Suicide Anesthesia complication Bleeding disorder Lung disease Stroke Social History Smoking and tobacco status: former smoker Alcohol intake: never Lives independently: Yes Household members: none Additional social history: Smoked for few years in her 20s Female Reproductive History: Para: 2 Physical Exam Const: EXAM LIMITATIONS: no altered mental status GENERAL APPEARANCE: well developed ORIENTATION/CONSCIOUSNESS: Yes oriented to person, Yes oriented to place and Yes oriented to time HENMT: COMMON NORMALS: normocephalic, external ears normal and Normal external nose present HEAD & SCALP: normocephalic; no scalp tenderness FACE & SINUS: normal facial exam NOSE: Normal external nose present and No nasal discharge present EXTERNAL EAR: Yes external ears normal MOUTH: tongue normal TEETH & GINGIVA: no abnormal tooth and associated gingiva THROAT: posterior oropharynx normal; no peritonsillar mass Eye: COMMON NORMALS: Equal, round and reactive pupils present, EOMs intact bilaterally and conjunctivae normal EYELID: eyelids normal CONJUNCTIVA: Yes conjunctivae normal PUPIL: Yes Equal, round and reactive pupils present Neck/C-Spine: COMMON NORMALS: full ROM GENERAL: No tracheal deviation CERVICAL SPINE: Yes normal cervical lordosis and No Cervical spine tenderness Chest: COMMONS NORMALS: normal inspection of the chest CHEST: No tenderness Resp: COMMON NORMALS: clear to auscultation bilaterally EFFORT & INSPECTION: No tachypneic, No respiratory distress, No retractions, No uses accessory muscles and No tracheal deviation AUSCULTATION: clear to auscultation bilaterally, no rhonchi, no wheezes and lung sounds not diminished Cardio: COMMON NORMALS: regular rate and regular rhythm RATE: regular rate RHYTHM: regular rhythm HEART SOUNDS: no murmurs PERIPHERAL PULSES: radial pulses present GI: INSPECTION: No abdominal distension AUSCULTATION: No Hyperactive bowel sounds present and No Hypoactive bowel sounds present PALPATION: No Guarding due to palpation present (GI) and No Rigid due to palpation PERCUSSION: no dullness to percussion and no tympanic to percussion : COMMON NORMALS: Yes no CVA tenderness BLADDER/KIDNEY EXAM: Yes no CVA tenderness Back/Pelvis: COMMON NORMALS: no CVA tenderness Neuro: SENSORIUM/ORIENTATION: Yes oriented to person, Yes oriented to place and Yes oriented to time Psych: COMMON NORMALS: mental status grossly normal Skin: COMMON NORMALS: no rashes or lesions noted GENERAL SKIN EXAM: no rashes or lesions noted Course Vital Signs: Vital signs: Vital Signs Temperature 98.2 F 02/02/21 01:00 Pulse Rate 86 02/02/21 01:00 Respiratory Rate 12 02/02/21 01:00 Blood Pressure 155/95 02/02/21 01:00 Pulse Oximetry 95 02/02/21 01:00 MDM - Nausea/Vomiting/Diarrhea MDM Narrative: Medical decision making narrative: Headache, vomiting, and generalized belly discomfort with some chest discomfort while vomiting in a 70-year-old female who is 6 weeks status post CABG. she is given pain medication and Zofran with resolution of the headache, and resolution of her vomiting. She states she is no longer nauseated, and no longer has a headache. No more episodes of vomiting since arrival in the ER. Her white blood cell count was twelve. Other laboratory is benign. Her head CT was negative. I had written for CT of the chest, with abdomen and pelvis due to recent CABG surgery and continued vomiting with diffuse belly pain. She declined this study. She also declined to wait for her second troponin which was minimally elevated. Appear to be at baseline from her prior troponin. She understands the risks of refusing the study, and still declines. With resolution of her symptoms, she will be allowed discharge. Lab Data: Labs: Lab Results 02/01/21 02/01/21 02/01/21 Range/Units 22:00 22:00 22:00 WBC 12.0 H (4.0-10.0) 10^3/ uL RBC 4.50 (4.1-5.3) 10^6/u L Hgb 12.6 (11.5-15.3) g/dL Hct 39.5 (37.0-47.0) % MCV 87.8 (81-99) fL MCH 28.0 (28.0-34.0) pg MCHC 31.9 (30.0-36.0) g/dL RDW 13.3 (12.1-15.1) % Plt Count 262 (130-400) 10^3/c mm MPV 9.5 (7.4-10.4) fL Neut % (Auto) 79.3 % Lymph % (Auto) 12.1 % [place] % (Auto) 6.4 % Eos % (Auto) 1.7 % Baso % (Auto) 0.3 % Neut # (Auto) 9.54 H (1.8-7.7) 10^3/u L Lymph # (Auto) 1.5 (0.8-4.8) 10^3/u L [place] # (Auto) 0.8 (0.2-0.9) 10^3/u L Eos # (Auto) 0.2 (0.0-0.8) 10^3/u L Baso # (Auto) 0.0 (0.0-0.1) 10^3/u L Nucleated RBC % (a uto) 0 % Nucleated RBCs # 0.0 /100WBC Sodium 138 (136-145) mmol/L Potassium 4.5 (3.5-5.1) mmol/L Chloride 100 (98-107) mmol/L Carbon Dioxide 27 (22-29) mmol/L Anion Gap 15.5 (5-19) BUN 11 (8-23) mg/dL Creatinine 0.9 (0.5-0.9) mg/dL GFR Calculation 62.1 L (90-130) mL/min Glucose 198 H (65-115) mg/dL Calculated Osmolal ity 291 (285-295) mOsm/k g Calcium 9.6 (8.5-10.5) mg/dL Total Bilirubin 0.5 (0.15-1.2) mg/dL AST 19 (0-32) U/L ALT 19 (0-33) U/L Alkaline Phosphata se 118 H (35-105) IU/L Troponin T Baselin e 16 H (0-10) ng/L Total Protein 7.0 (6.6-8.7) g/dL Albumin 3.9 (3.5-5.2) g/dL Globulin 3.1 (1.3-4.6) g/dL Lipase 17 (13-60) U/L Discharge Plan Discharge Patient Disposition: Home Clinical Impression: Vomiting Qualifiers: Vomiting type: unspecified Vomiting Intractability: unspecified Nausea presence: with nausea Qualified Code(s): R11.2 - Nausea with vomiting, unspecified Condition: Stable Prescriptions: New Zofran 4 mg tablet 4 mg PO Q6H PRN (Reason: nausea and vomiting) Qty: 10 RF: 0 No Action metoprolol tartrate 25 mg tablet 12.5 mg PO BID RF: 0 amlodipine 5 mg tablet 5 mg PO DAILY RF: 0 atorvastatin 20 mg tablet 20 mg PO DAILY RF: 0 lisinopril 10 mg tablet 10 mg PO DAILY Qty: 90 RF: 3 clopidogrel 75 mg tablet 75 mg PO DAILY Qty: 90 RF: 3 atorvastatin 40 mg tablet 40 mg PO DAILY Qty: 90 RF: 3 metoprolol tartrate 25 mg tablet 25 mg PO BID Qty: 180 RF: 3 Lantus Solostar U-100 Insulin 100 unit/mL (3 mL) insulin pen 10 unit SUBCUT DAILY Qty: 15 RF: 3 lisinopril 10 mg tablet See Rx Instructions .ROUTE .COMPLEX Qty: 90 RF: 3 clopidogrel 75 mg tablet See Rx Instructions .ROUTE .COMPLEX Qty: 90 RF: 2 levothyroxine 175 mcg tablet 175 mcg PO DAILY RF: 0 glimepiride 4 mg tablet 4 mg PO BIDWMEAL RF: 0 zolpidem 10 mg tablet 10 mg PO BEDTIME PRN (Reason: Sleep) RF: 0 pantoprazole 20 mg tablet,delayed release (DR/EC) 40 mg PO DAILY Qty: 0 RF: 0 Discharge Orders: Discharge ED (Routine); Ordered 02/02/21 Ordered By: Bang William Referrals: William Chan MD [Primary Care Provider] - 1-3 days Discharge Diet: Advance as tolerated and Clear Liquid Discharge Activity: Increase activity as tolerated Patient Instructions: Vomiting - Adult Activity Restrictions/Additional Instructions: Return for continued episodes of vomiting despite treatment, return of headache, chest discomfort, abdominal discomfort, fever greater than 100, any other concerning symptoms. Call your doctor in the morning to let them know you were here. Coding Level of Care Code ED Medical Records Receptionist for Chg Fwd Exam Comprehensive
== END 2021-02-02 01:02 | disposition home or self-care (01) ==
PROVIDERS: Nurse Practitioner Family; Emergency Provider Emergency Medicine; PCP Family Medicine
DX: R11.2 Nausea with vomiting, unspecified (principal); Z79.02 Long term (current) use of antithrombotics/antiplatelets; Z79.4 Long term (current) use of insulin; E78.5 Hyperlipidemia, unspecified; Z85.43 Personal history of malignant neoplasm of ovary; E11.40 Type 2 diabetes mellitus with diabetic neuropathy, unspecified; Z87.891 Personal history of nicotine dependence
CPT/HCPCS: 70450; 80053; 83690; 84484; 85025; 93005; 96361; 96374; 96375; 99284; J2405; J3010; J7030

== ENCOUNTER 2021-02-20 10:50 | Inpatient (IN) | payer MEDICARE, BC, SELFPAY ==
[2021-02-20] VITALS (11 sets, daily range): BP systolic 119–155; BP diastolic 66–93; PULSE 89–116; RESP 15–19; TEMP 36.5–36.8; O2SAT 92–96; BMI 29.5
--- NOTE | 2021-02-20 11:11 | XR_ITS ---
WS: [id number] Portable AP upright chest, 02/20/2021 Clinical Data: chest pain Comparison: Portable chest, 12/12/2020. Findings: No nodules, masses or effusions are seen. The heart is normal. The pulmonary vascularity is not increased. No pneumonia or pneumothorax is seen. The aortic arch and descending aorta are tortuo us. Midline sternotomy sutures are noted. There are monitor leads on the chest wall. Small calcificat ions over both humeral heads could indicate calcific bursitis and/or tendinitis. XR/XR chest 1V portable [id number] Impression: Atherosclerosis.
--- NOTE | 2021-02-20 11:14 | ECG_ITS ---
Test Date: 2021-02-20 Pat Name: Yasmani Teixeira Department: Room: Gender: Female Forms Analyst: : 1950 Requested By: Donnell Scherer Order Number: [id number] Ryder MD: Edmar Griffith M.D. Measurements Intervals [place] Rate: 99 P: 48 [place]: 147 QRS: -12 QRSD: 99 T: 77 QT: 345 QTc: 443 Interpretive Statements SINUS RHYTHM POSSIBLE LEFT ATRIAL ENLARGEMENT [-0.1mV P WAVE IN V1/V2] INFERIOR MYOCARDIAL INFARCTION , PROBABLY OLD [40+ ms Q WAVE AND/OR ST/T ABNORMALITY IN II/aVF] Compared to ECG 02/01/2021 20:58:13 Myocardial infarct finding now present Sinus tachycardia no longer present T-wave abnormality no longer present Electronically Signed On 02-20-2021 18:31:17 CDT by Edmar Griffith M.D. [id number]
--- NOTE | 2021-02-20 11:19 | W.ED.NAVMDI ---
HPI - Nausea/Vomiting/Diarrhea General: Chief complaint: Nausea/Vomiting/Diarrhea Stated complaint: CHEST/KIDNEY PAIN, POST HEART SURGERY Time Seen by Provider: 02/20/21 11:06 History of Present Illness: HPI Narrative: The patient is a 70-year-old female with CABG surgery 8 weeks ago, coronary artery disease, hypertension, diabetes. She comes to the ER complaining of nausea which started last night. This morning it has worsened and she has vomited multiple times at home. Also she says she does not feel well, generally weak, and she is having pain in her left abdomen left upper back, left shoulder and it radiates across her left chest. She says it does not feel like her last heart attack though. She says her urine has been dark yellow-colored and she has not eaten or drank anything since 5 PM yesterday. MD elicited complaint: nausea, vomiting and abdominal pain Onset (ago): hour(s) (12) Associated nausea: Yes Pain consistency: constant Severity: moderate Quality: sharp Exacerbating factors: none Relieving factors: none Associated symtoms: Reports chest pain and nausea; Denies anxiety, change in vision, dizziness, fatigue or headache(s) Review of Systems General: Reports: 10 or more systems reviewed and unremarkable except in HPI and below Const: Denies: fatigue Eyes: Denies: change in vision, blurry vision or eye redness ENMT: Denies: throat pain, swelling of lips/tongue, ear or mastoid pain or nasal congestion Card: Reports: chest pain Resp: Denies: dyspnea, productive cough or non-productive cough GI: Reports: abdominal pain, nausea and vomiting; Denies: diarrhea or GI cramping : Denies: flank pain, difficulty voiding, urinary frequency or urinary urgency Musc: Denies: neck pain, back pain, extremity pain, joint pain, joint redness, limited range of motion or muscle weakness Skin/Breast: Denies: rash, pruritus, erythema, skin pain or skin tenderness Neuro: Denies: headache(s), numbness in extremities, weakness in extremities, sensory changes, difficulty walking, dizziness, confusion or Slurred speech present Psych: Denies: anxiety or depression Endo: Denies: polyuria All/Imm: Denies: urticaria, throat swelling or tongue swelling PFSH ED PFSH: Medical History Fibromyalgia On as needed hydrocodone and baclofen Hyperlipidemia Not currently on treatment Hypothyroid Ovarian cancer Treated with hysterectomy with salpingo-oophorectomy Uncontrolled type 2 diabetes with neuropathy Surgical History H/O: hysterectomy History of tonsillectomy Hx of appendectomy Hx of cholecystectomy Family History Sister Cancer uterine/cervix CAD (coronary artery disease) Diabetes Mother Cancer cervix Father CAD (coronary artery disease) Brother CAD (coronary artery disease) Diabetes Grandmother Diabetes Denies family history of Clotting disorder Dementia Chronic kidney disease (CKD) Suicide Anesthesia complication Bleeding disorder Lung disease Stroke Social History Smoking and tobacco status: former smoker Alcohol intake: never Lives independently: Yes Household members: none Additional social history: Smoked for few years in her 20s Female Reproductive History: Para: 2 Physical Exam Const: COMMON NORMALS: no acute distress, average body habitus, patient oriented x3, no limitations, healthy appearing, alert and well nourished GENERAL APPEARANCE: cooperative, comfortable, well kempt, well developed and anxious ORIENTATION/CONSCIOUSNESS: Yes awake, Yes oriented to person, Yes oriented to place and Yes oriented to time HENMT: COMMON NORMALS: normocephalic, external ears normal and Normal external nose present HEAD & SCALP: normal to inspection and normocephalic NOSE: Normal external nose present EXTERNAL EAR: Yes external ears normal MOUTH: Normal oral and palatal mucosa present THROAT: posterior oropharynx normal Eye: COMMON NORMALS: Equal, round and reactive pupils present and EOMs intact bilaterally GENERAL EYE: appearance normal, both eyes and all related structures PUPIL: Yes Equal, round and reactive pupils present Neck/C-Spine: COMMON NORMALS: full ROM, no lymphadenopathy, no meningeal signs and no JVD GENERAL: Yes normal visual inspection Lymph: LYMPHATIC: no lymphadenopathy noted Chest: COMMONS NORMALS: normal inspection of the chest and normal palpation of entire chest wall Resp: COMMON NORMALS: normal respiratory effort, No retractions, No use of accessory muscles, clear to auscultation bilaterally and percussion normal EFFORT & INSPECTION: Yes able to speak in complete sentences AUSCULTATION: clear to auscultation bilaterally PERCUSSION: percussion normal Cardio: COMMON NORMALS: no JVD, regular rate, regular rhythm, S1 normal heart sound present, S2 normal heart sound present and Peripheral pulses 2+ throughout RATE: regular rate RHYTHM: regular rhythm HEART SOUNDS: S1 normal heart sound present and S2 normal heart sound present PERIPHERAL PULSES: Peripheral pulses 2+ throughout GI: COMMON NORMALS: Normal to inspection, nondistended, normoactive bowel sounds present, Soft to palpation, non-tender and no masses INSPECTION: Yes normal to inspection PALPATION: Yes Soft to palpation : COMMON NORMALS: Yes no CVA tenderness BLADDER/KIDNEY EXAM: Yes no CVA tenderness Back/Pelvis: COMMON NORMALS: no CVA tenderness, thoracic and lumbar spine normal to inspection, no thoracic nor lumbar tenderness and thoraco-lumbar ROM normal Extremity: COMMON NORMALS: normal to inspection, full ROM, capillary refill normal, no joint enlargement and no pedal edema GENERAL: Yes normal exam except as noted Neuro: COMMON NORMALS: patient oriented x3, CN's II-XII intact bilaterally, moves all extremities, no focal motor deficits, no sensory deficits noted and gait normal SENSORIUM/ORIENTATION: Yes alert, Yes oriented to person, Yes oriented to place and Yes oriented to time MENINGEAL SIGNS: Yes no meningeal signs Psych: COMMON NORMALS: mental status grossly normal, Normal thought process present, cooperative, normal affect and speech normal APPEARANCE: Yes well kempt ATTITUDE: Yes calm SPEECH: Yes normal speech THOUGHT PROCESS: Normal thought process present Skin: COMMON NORMALS: no rashes or lesions noted GENERAL SKIN EXAM: no rashes or lesions noted Course Vital Signs: Vital signs: Vital Signs Temperature 98.3 F 02/20/21 16:11 Pulse Rate 106 H 02/20/21 18:06 Respiratory Rate 16 02/20/21 16:11 Blood Pressure 119/93 02/20/21 16:11 Pulse Oximetry 92 02/20/21 18:06 MDM - Nausea/Vomiting/Diarrhea MDM Narrative: Medical decision making narrative: The patient came in complaining of left shoulder radiating to left chest and left abdomen pain. The cause of which was initially unclear because she said her chest did not hurt though shortly after arrival it did begin bothering her. She was given aspirin 325 on arrival. Initial troponin was elevated to 183 and the 2-hour troponin was slightly lower at 160. 2 nitroglycerin did mostly resolve her pain. I discussed with Dr. King who recommended Lovenox. Admitted to CSU under Dr. Paz. Her symptoms most likely resemble a non-STEMI and will be treated as such. Lab Data: Labs: Lab Results 02/20/21 02/20/21 02/20/21 Range/Units 11:30 11:30 11:30 WBC 6.3 (4.0-10.0) 10^3/ uL RBC 4.73 (4.1-5.3) 10^6/u L Hgb 13.2 (11.5-15.3) g/dL Hct 41.4 (37.0-47.0) % MCV 87.5 (81-99) fL MCH 27.9 L (28.0-34.0) pg MCHC 31.9 (30.0-36.0) g/dL RDW 13.4 (12.1-15.1) % Plt Count 319 (130-400) 10^3/c mm MPV 9.5 (7.4-10.4) fL Neut % (Auto) 66.4 % Lymph % (Auto) 23.5 % [place] % (Auto) 7.4 % Eos % (Auto) 1.6 % Baso % (Auto) 0.8 % Neut # (Auto) 4.20 (1.8-7.7) 10^3/u L Lymph # (Auto) 1.5 (0.8-4.8) 10^3/u L [place] # (Auto) 0.5 (0.2-0.9) 10^3/u L Eos # (Auto) 0.1 (0.0-0.8) 10^3/u L Baso # (Auto) 0.1 (0.0-0.1) 10^3/u L Nucleated RBC % (a uto) 0 % Nucleated RBCs # 0.0 /100WBC PT 13.10 (12.1-14.9) SECO NDS INR 0.96 (0.8-1.2) D-Dimer 0.73 H (0-0.59) ug/mIFE U Sodium 140 (136-145) mmol/L Potassium 4.2 (3.5-5.1) mmol/L Chloride 103 (98-107) mmol/L Carbon Dioxide 25 (22-29) mmol/L Anion Gap 16.2 (5-19) BUN 13 (8-23) mg/dL Creatinine 0.6 (0.5-0.9) mg/dL GFR Calculation 99.1 (90-130) mL/min Glucose 210 H (65-115) mg/dL Calculated Osmolal ity 296 H (285-295) mOsm/k g Lactate (0.5-2.2) mmol/L Calcium 9.6 (8.5-10.5) mg/dL Total Bilirubin 0.5 (0.15-1.2) mg/dL AST 16 (0-32) U/L ALT 14 (0-33) U/L Alkaline Phosphata se 121 H (35-105) IU/L Troponin T Baselin e (0-10) ng/L Troponin T 120 Min [place] (0-10) ng/L Delta Troponin T (0-10) ABS# NT-Pro-B Natriuret Pep 615 H (0-125) pg/mL Total Protein 6.8 (6.6-8.7) g/dL Albumin 4.1 (3.5-5.2) g/dL Globulin 2.7 (1.3-4.6) g/dL Lipase 19 (13-60) U/L Urine Color (Yellow) Urine Appearance (CLEAR) Urine pH (5-7) Ur Specific Gravit y (1.005-1.030) Urine Protein (Negative) Urine Glucose (UA) (Normal) Urine Ketones (Negative) Urine Blood (Negative) Urine Nitrate (Negative) Urine Bilirubin (Negative) Urine Urobilinogen (Negative) mg/dL Ur Leukocyte [place] ase (Negative) Urine RBC (0-2) /hpf Urine WBC (0-5) /hpf Ur Squamous Epith Cells (0-5) /hpf Amorphous Sediment Urine Bacteria (NONE) /hpf Hyaline Casts /lpf Urine Mucus /hpf 02/20/21 02/20/21 02/20/21 Range/Units 11:30 11:30 13:09 WBC (4.0-10.0) 10^3/ uL RBC (4.1-5.3) 10^6/u L Hgb (11.5-15.3) g/dL Hct (37.0-47.0) % MCV (81-99) fL MCH (28.0-34.0) pg MCHC (30.0-36.0) g/dL RDW (12.1-15.1) % Plt Count (130-400) 10^3/c mm MPV (7.4-10.4) fL Neut % (Auto) % Lymph % (Auto) % [place] % (Auto) % Eos % (Auto) % Baso % (Auto) % Neut # (Auto) (1.8-7.7) 10^3/u L Lymph # (Auto) (0.8-4.8) 10^3/u L [place] # (Auto) (0.2-0.9) 10^3/u L Eos # (Auto) (0.0-0.8) 10^3/u L Baso # (Auto) (0.0-0.1) 10^3/u L Nucleated RBC % (a uto) % Nucleated RBCs # /100WBC PT (12.1-14.9) SECO NDS INR (0.8-1.2) D-Dimer (0-0.59) ug/mIFE U Sodium (136-145) mmol/L Potassium (3.5-5.1) mmol/L Chloride (98-107) mmol/L Carbon Dioxide (22-29) mmol/L Anion Gap (5-19) BUN (8-23) mg/dL Creatinine (0.5-0.9) mg/dL GFR Calculation (90-130) mL/min Glucose (65-115) mg/dL Calculated Osmolal ity (285-295) mOsm/k g Lactate 1.3 (0.5-2.2) mmol/L Calcium (8.5-10.5) mg/dL Total Bilirubin (0.15-1.2) mg/dL AST (0-32) U/L ALT (0-33) U/L Alkaline Phosphata se (35-105) IU/L Troponin T Baselin e 183 H* (0-10) ng/L Troponin T 120 Min [place] (0-10) ng/L Delta Troponin T (0-10) ABS# NT-Pro-B Natriuret Pep (0-125) pg/mL Total Protein (6.6-8.7) g/dL Albumin (3.5-5.2) g/dL Globulin (1.3-4.6) g/dL Lipase (13-60) U/L Urine Color [place] (Yellow) Urine Appearance Clear (CLEAR) Urine pH 5 (5-7) Ur Specific Gravit y 1.020 (1.005-1.030) Urine Protein 1+ H (Negative) Urine Glucose (UA) 1+ (Normal) Urine Ketones Negative (Negative) Urine Blood Neg (Negative) Urine Nitrate Positive H (Negative) Urine Bilirubin 1+ H (Negative) Urine Urobilinogen 4 H (Negative) mg/dL Ur Leukocyte Barbara ase Negative (Negative) Urine RBC None (0-2) /hpf Urine WBC 0-4 H (0-5) /hpf Ur Squamous Epith Cells 25-40 H (0-5) /hpf Amorphous Sediment Not Reportable Urine Bacteria Trace (NONE) /hpf Hyaline Casts 5-10 H /lpf Urine Mucus 2+ /hpf // Range/Units 13:40 WBC (4.0-10.0) 10^3/ uL RBC (4.1-5.3) 10^6/u L Hgb (11.5-15.3) g/dL Hct (37.0-47.0) % MCV (81-99) fL MCH (28.0-34.0) pg MCHC (30.0-36.0) g/dL RDW (12.1-15.1) % Plt Count (130-400) 10^3/c mm MPV (7.4-10.4) fL Neut % (Auto) % Lymph % (Auto) % [place] % (Auto) % Eos % (Auto) % Baso % (Auto) % Neut # (Auto) (1.8-7.7) 10^3/u L Lymph # (Auto) (0.8-4.8) 10^3/u L [place] # (Auto) (0.2-0.9) 10^3/u L Eos # (Auto) (0.0-0.8) 10^3/u L Baso # (Auto) (0.0-0.1) 10^3/u L Nucleated RBC % (a uto) % Nucleated RBCs # /100WBC PT (12.1-14.9) SECO NDS INR (0.8-1.2) D-Dimer (0-0.59) ug/mIFE U Sodium (136-145) mmol/L Potassium (3.5-5.1) mmol/L Chloride (98-107) mmol/L Carbon Dioxide (22-29) mmol/L Anion Gap (5-19) BUN (8-23) mg/dL Creatinine (0.5-0.9) mg/dL GFR Calculation (90-130) mL/min Glucose (65-115) mg/dL Calculated Osmolal ity (285-295) mOsm/k g Lactate (0.5-2.2) mmol/L Calcium (8.5-10.5) mg/dL Total Bilirubin (0.15-1.2) mg/dL AST (0-32) U/L ALT (0-33) U/L Alkaline Phosphata se (35-105) IU/L Troponin T Baselin e (0-10) ng/L Troponin T 120 Min [place] 160.7 H (0-10) ng/L Delta Troponin T -22.3 L (0-10) ABS# NT-Pro-B Natriuret Pep (0-125) pg/mL Total Protein (6.6-8.7) g/dL Albumin (3.5-5.2) g/dL Globulin (1.3-4.6) g/dL Lipase (13-60) U/L Urine Color (Yellow) Urine Appearance (CLEAR) Urine pH (5-7) Ur Specific Gravit y (1.005-1.030) Urine Protein (Negative) Urine Glucose (UA) (Normal) Urine Ketones (Negative) Urine Blood (Negative) Urine Nitrate (Negative) Urine Bilirubin (Negative) Urine Urobilinogen (Negative) mg/dL Ur Leukocyte [place] ase (Negative) Urine RBC (0-2) /hpf Urine WBC (0-5) /hpf Ur Squamous Epith Cells (0-5) /hpf Amorphous Sediment Urine Bacteria (NONE) /hpf Hyaline Casts /lpf Urine Mucus /hpf Discharge Plan Discharge Patient Disposition: Admitted As Inpatient Admit Provider: Miles Paz Clinical Impression: Non-ST elevated myocardial infarction (non-STEMI) Condition: Stable Coding Level of Care Code ED [employer] Technical for g Fwd Exam Comprehensive
[2021-02-20] MEDS: aspirin 81 mg Chew Tablet 324 MG PO (11:37)
[2021-02-20] MEDS: sodium chloride 0.9% 1,000 ML 999 ML IV (11:37)
[2021-02-20] MEDS: ondansetron 2 mg/ML SDV 2 mL 4 MG IVP (11:37)
[2021-02-20 11:41] LABS: Basophils # 0.1 10^3/uL (0.0-0.1); Basophils % 0.8 %; Eosinophils # 0.1 10^3/uL (0.0-0.8); Eosinophils % 1.6 %; Hematocrit 41.4 % (37.0-47.0); Hemoglobin 13.2 g/dL (11.5-15.3); Lymphocytes # 1.5 10^3/uL (0.8-4.8); Lymphocytes % 23.5 %; Mean Corpuscular HGB Conc 31.9 g/dL (30.0-36.0); Mean Corpuscular Hemoglobin 27.9 pg (28.0-34.0); Mean Corpuscular Volume 87.5 fL (81-99); Mean Platelet Volume 9.5 fL (7.4-10.4); Monocytes # 0.5 10^3/uL (0.2-0.9); Monocytes % 7.4 %; Neutrophils % 66.4 %; Nucleated Red Blood Cells % 0 %; Platelet Count 319 10^3/cmm (130-400); Red Blood Count 4.73 10^6/uL (4.1-5.3); Red Cell Distribution Width 13.4 % (12.1-15.1); White Blood Count 6.3 10^3/uL (4.0-10.0)
--- NOTE | 2021-02-20 11:49 | PC.PHAR ---
pt states she takes care of her own medications now-pt states she use to have home health to set up her meds but not anymore-pt states her lantus was increased to 14 units qam-ext med history shows last filled on 12/17/20 90d/s for 10 units daily-
[2021-02-20 11:58] LABS: Lactate (Lactic Acid level) 1.3 mmol/L (0.5-2.2)
[2021-02-20 11:59] LABS: INR 0.96 (0.8-1.2)
[2021-02-20 12:03] LABS: D Dimer 0.73 ug/mIFEU (0-0.59); Troponin(5th) Baseline 183 ng/L (0-10)
[2021-02-20 12:10] LABS: Alanine Aminotransferase 14 U/L (0-33); Albumin Level 4.1 g/dL (3.5-5.2); Alkaline Phosphatase 121 IU/L (35-105); Anion Gap 16.2 (5-19); Aspartate Amino Transferase 16 U/L (0-32); Blood Urea Nitrogen 13 mg/dL (8-23); Calcium 9.6 mg/dL (8.5-10.5); Carbon Dioxide 25 mmol/L (22-29); Chloride 103 mmol/L (98-107); Creatinine Clr Calc Pharmacy 70.0508; Globulin 2.7 g/dL (1.3-4.6); Glomerular Filtration Rate 99.1 mL/min (90-130); Glucose 210 mg/dL (65-115); Lipase 19 U/L (13-60); NT Pro B Type Natriuretic Pept 615 pg/mL (0-125); Osmolality Calculated 296 mOsm/kg (285-295); Potassium 4.2 mmol/L (3.5-5.1); Sodium 140 mmol/L (136-145); Total Bilirubin 0.5 mg/dL (0.15-1.2); Total Protein 6.8 g/dL (6.6-8.7)
[2021-02-20] MEDS: nitroglycerin 0.4 mg sublingual Tablet SUBLINGUAL ×2 (12:25→12:44)
--- NOTE | 2021-02-20 13:14 | ECG_ITS ---
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 Measurements Intervals [place] Rate: 86 P: HI: QRS: -7 QRSD: 94 T: 61 QT: 371 QTc: 446 Interpretive Statements SINUS RHYTHM LOW QRS VOLTAGE IN PRECORDIAL LEADS [QRS DEFLECTION < 1.0 mV IN CHEST LEADS] INFERIOR MYOCARDIAL INFARCTION , PROBABLY OLD [40+ ms Q WAVE AND/OR ST/T ABNORMALITY IN II/aVF] Compared to ECG 02/20/2021 11:32:19 Low QRS voltage now present Sinus rhythm no longer present Myocardial infarct finding still present Electronically Signed On 02-20-2021 18:36:31 CDT by Edmar Griffith M.D. [id number]
[2021-02-20] MEDS: morphine 4 mg/mL SDV 1 mL 2 MG IVP (13:52)
[2021-02-20 13:54] LABS: Add Urine Culture? No; Add Urine Microscopic? YES; Bacteria Urine TRACE /hpf; Bilirubin Urine 1+ (Negative); Blood Urine Neg (Negative); Glucose Urine UA 1+ (Normal); Ketones Urine Negative (Negative); Leukocyte Esterase Urine Negative (Negative); Mucus Urine 2+ /hpf; Nitrate Urine Positive (Negative); Protein Urine 1+ (Negative); Squamous Epithelial Cell Urine 25-40 /hpf (0-5); Urine Appearance Clear (CLEAR); Urine Color Orange (Yellow); Urobilinogen Urine 4 mg/dL (Negative); WBC Urine 0-4 /hpf (0-5); pH Urine 5 (5-7)
[2021-02-20 14:23] LABS: Troponin 5 2HR 160.7 ng/L (0-10); Troponin 5 2HR Delta -22.3 ABS# (0-10)
[2021-02-20] MEDS: enoxaparin 80 mg/0.8 mL Syringe SUBCUT (15:57)
--- NOTE | 2021-02-20 16:20 | PM.HP ---
Providers/Chief Complaint Admitting Physician: Miles aPz MD Primary Care Provider: William Chan MD Chief Complaint: CHEST/KIDNEY PAIN, POST HEART SURGERY History of Present Illness Yasmani Teixeira is a 70 year old female with pmh of CAD S/P CABG (VALLES to LAD, reverse saphenous vein graft aorta to the diagonal artery, reverse saphenous vein graft aorta to the obtuse marginal branch of circumflex artery) ( December 08, 2020) , DM, Hypothyroidism,fibromyalgia, was admitted with c/o lt sided chest pressure radiating to lt arm started around last night, chest pressure was associated with nausea she is also complaining of back pain she was also complaining of pain in her left abdomen left upper back, left shoulder and it radiates across her left chest. She says it does not feel like her last heart attack though.She says her urine has been dark yellow-colored and she has not eaten or drank anything since 5 PM yesterday.Upon arrival in the ER she was worked up for above mentioned complaint. EKG : Sinus Tachycardia : Xray chest : No pulmonary congestion, no effusion, no infiltrates, no PTX. Pertinent labs : WBC : 6.3, H/H: 13/41, PLT : 319, Na : 140, k : 4.2 , BUN/SCR: 13/0.6, Troponin : Baseline : 183, 2h : 160, 2h Delta: -22.3, 6H : Pending , Pro Bnp : 615 , D-Dimer : 0.73 Urine Analysis : Nitrite :Positive , Urine WBC : 0/4, Urine Squamous epith cell: 25-40, ECA Medications: Aspirin 325 mg po , Plavix 75 mg po * 1 Dose, Morphine .s : 2 mg I.V 8 1 Dose, Lovenox: 80 mg sc * 1 dose, Review of Systems Const: Denies: fever(s), chills, body aches, change in appetite or diaphoresis Card: Denies: edema, swelling of feet/ankles, dyspnea on exertion, orthopnea or leg pain with exertion Resp: Denies: dyspnea, productive cough or wheezing GI: Denies: diarrhea or constipation Musc: Denies: extremity pain or extremity swelling Neuro: Denies: headache(s), difficulty walking or confusion Medications/Allergies Home Medications Medication Instructions Recorded Confirmed Last Taken Type zolpidem 10 mg PO BEDTIME PRN 08/24/20 02/20/21 12/04/20 21:00 History glimepiride 4 mg PO BID 11/13/20 02/20/21 02/19/21 History levothyroxine 175 mcg PO QAM 11/13/20 02/20/21 02/19/21 History metoprolol tartrate 25 mg tablet 25 mg PO BID 01/15/21 02/20/21 02/19/21 History ondansetron HCl [Zofran] 4 mg PO Q6H PRN #10 tab 02/02/21 02/20/21 02/19/21 Rx aspirin [Aspir-81] 81 mg PO QAM 02/20/21 02/20/21 02/19/21 History atorvastatin 40 mg PO QAM 02/20/21 02/20/21 02/19/21 History clopidogrel 75 mg PO QAM 02/20/21 02/20/21 02/19/21 History hydrocodone-acetaminophen 1 tab PO Q6H PRN 02/20/21 02/20/21 Unknown History insulin glargine [Lantus Solostar 14 unit SUBCUT QAM 02/20/21 02/20/21 02/19/21 History U-100 Insulin] isosorbide mononitrate 30 mg PO QAM 02/20/21 02/20/21 Unknown History lisinopril 10 mg PO QAM 02/20/21 02/20/21 02/19/21 History pantoprazole 20 mg PO DAILY 02/20/21 02/20/21 02/19/21 History Allergies Allergy/AdvReac Type Severity Reaction Status Date / Time codeine Allergy ADR-Abdominal Verified 02/20/21 11:49 Pain PFSH Acute PFSH: Medical History Fibromyalgia On as needed hydrocodone and baclofen Hyperlipidemia Not currently on treatment Hypothyroid Ovarian cancer Treated with hysterectomy with salpingo-oophorectomy Uncontrolled type 2 diabetes with neuropathy Surgical History H/O: hysterectomy History of tonsillectomy Hx of appendectomy Hx of cholecystectomy Family History Sister Cancer uterine/cervix CAD (coronary artery disease) Diabetes Mother Cancer cervix Father CAD (coronary artery disease) Brother CAD (coronary artery disease) Diabetes Grandmother Diabetes Denies family history of Clotting disorder Dementia Chronic kidney disease (CKD) Suicide Anesthesia complication Bleeding disorder Lung disease Stroke Social History Smoking and tobacco status: former smoker Alcohol intake: never Lives independently: Yes Household members: none Additional social history: Smoked for few years in her 20s Female Reproductive History: Para: 2 Vitals/I&O/Wt Last Vital Signs Temp 97.7 F 02/20/21 11:00 Pulse 89 02/20/21 14:50 Resp 19 H 02/20/21 14:50 BP 155/74 02/20/21 14:50 Pulse Ox 95 02/20/21 13:37 02/20/21 02/20/21 02/20/21 06:59 14:59 22:59 Intake Total 1000 / 1000 Balance 1000 / 1000 Weight last 48 hrs Weight 81.647 kg Physical Exam Const: COMMON NORMALS: patient oriented x3 HENMT: COMMON NORMALS: normocephalic and atraumatic HEAD & SCALP: normocephalic and atraumatic Chest: CHEST: Yes Symmetrical chest wall rise Resp: COMMON NORMALS: clear to auscultation bilaterally EFFORT & INSPECTION: Yes symmetric chest movement AUSCULTATION: clear to auscultation bilaterally Cardio: COMMON NORMALS: regular rate, regular rhythm, S1 normal heart sound present, S2 normal heart sound present, No gallops present (Cardio), No murmurs present (Cardio), No rub (Cardio) and Peripheral pulses 2+ throughout RATE: regular rate RHYTHM: regular rhythm HEART SOUNDS: S1 normal heart sound present and S2 normal heart sound present PERIPHERAL PULSES: Peripheral pulses 2+ throughout GI: COMMON NORMALS: Normal to inspection, nondistended, normoactive bowel sounds present, Soft to palpation, non-tender, No hepatosplenomegaly present and no masses AUSCULTATION: Yes normoactive bowel sounds PALPATION: Yes Soft to palpation and Yes No hepatosplenomegaly present RECTAL EXAM: deferred Extremity: COMMON NORMALS: no clubbing, cyanosis or edema and no pedal edema Neuro: COMMON NORMALS: patient oriented x3 Data : 02/20/21 11:30 02/20/21 11:30 A&P Assessment and plan (1) Non-ST elevated myocardial infarction (non-STEMI): 2D Echo : Serial EKG: Trend Troponin: Aspirin 81 mg po daily Plavix 75 mg po daily Lipitor 40 mg po daily MT 25 MG PO BID Lisinopril 10 mg po daily Lovenox 80 mg q12 h daily IMDUR 30 MG PO DAILY 0.4 MG SL Nitro PRN Status: Acute (2) Benign essential HTN: Status: Acute (3) Status post aorto-coronary artery bypass graft: Status: Acute (4) Dyslipidemia (high LDL; low HDL): Status: Acute (5) Fibromyalgia: Status: Acute (6) Uncontrolled type 2 diabetes with neuropathy: Status: Chronic (7) Hypothyroid: Status: Acute Qualifiers: Hypothyroidism type: acquired Qualified Code(s): E03.9 - Hypothyroidism, unspecified Attestations Medical Necessity Statement*: Patient needs to be in hospital for the management of NSTEMI. Anticipated LOS Greater then 2 Midnights. 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
--- NOTE | 2021-02-20 17:14 | ECG_ITS ---
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 Measurements Intervals [place] Rate: 109 P: 52 LA: 140 QRS: -9 QRSD: 88 T: 73 QT: 344 QTc: 463 Interpretive Statements SINUS TACHYCARDIA INFERIOR MYOCARDIAL INFARCTION [40+ ms Q WAVE AND/OR ST/T ABNORMALITY IN II/aVF], PROBABLY OLD Compared to ECG 02/20/2021 13:12:59 Atrial fibrillation no longer present Myocardial infarct finding still present Electronically Signed On 02-20-2021 18:33:23 CDT by Edmar Griffith M.D. [id number] f
[2021-02-20 17:21] LABS: Glucose Point of Care 134 mg/dL (70-110)
[2021-02-20] MEDS: famotidine 20 mg Tablet PO (17:34)
[2021-02-20] MEDS: isosorbide mononitrate ER 30 mg Tablet PO (17:34)
[2021-02-20] MEDS: cefTRIAXone 1,000 MG in sodium chloride 0.9% (plus) 50 ML 100 MG IV (17:36)
[2021-02-20] MEDS: sodium chloride 0.9% 1,000 ML 50 ML IV (17:36)
[2021-02-20] MEDS: clopidogrel 75 mg Tablet PO (18:00)
--- NOTE | 2021-02-20 18:25 | PC.NURSE ---
Patient arrived to [facility] from ER at 1700. Patient A&O, VSS. Patient oriented to room and call light. Patient denies any chest pain pr shortness of breath. Patient reports she has not taken any daily medications. Dr. King notified. Telephone order received to administer plavix 75 mg now. RBTO. Nurse to continue to monitor.
[2021-02-20 19:16] LABS: Troponin 5 6HR Delta 4.3 ng/L (0-12)
[2021-02-20 19:19] LABS: Troponin 5 6HR 187.3 ng/L (0-10)
[2021-02-20] MEDS: HYDROcodone-acetaminophen 5-325 mg Tablet 1 TAB PO (19:35)
[2021-02-20 20:35] LABS: Glucose Point of Care 229 mg/dL (70-110)
[2021-02-20] MEDS: metoprolol tartrate 25 mg Tablet PO (20:55)
[2021-02-20] MEDS: baclofen 10 mg Tablet PO (20:56)
[2021-02-20] MEDS: zolpidem 5 mg Tablet 10 MG PO (20:56)
[2021-02-21] VITALS (12 sets, daily range): BP systolic 116–170; BP diastolic 63–92; PULSE 74–107; RESP 12–20; TEMP 36.4–36.8; O2SAT 92–97
[2021-02-21] MEDS: HYDROcodone-acetaminophen 5-325 mg Tablet 1 TAB PO ×4 (00:01→20:53)
[2021-02-21] MEDS: clopidogrel 75 mg Tablet PO (05:12)
[2021-02-21] MEDS: aspirin 81 mg EC Tablet PO (05:12)
[2021-02-21] MEDS: atorvastatin 40 mg Tablet PO (05:12)
[2021-02-21] MEDS: enoxaparin 80 mg/0.8 mL Syringe SUBCUT ×2 (05:12→17:52)
[2021-02-21] MEDS: levothyroxine 175 mcg Tablet PO (05:12)
[2021-02-21] MEDS: isosorbide mononitrate ER 30 mg Tablet PO (05:12)
[2021-02-21] MEDS: ondansetron 2 mg/ML SDV 2 mL 4 MG IVP ×2 (05:13→13:41)
[2021-02-21] MEDS: lisinopril 10 mg Tablet PO (05:13)
[2021-02-21 05:18] LABS: Basophils # 0.1 10^3/uL (0.0-0.1); Basophils % 0.8 %; Eosinophils # 0.2 10^3/uL (0.0-0.8); Eosinophils % 2.6 %; Hemoglobin 11.3 g/dL (11.5-15.3); Lymphocytes # 2.2 10^3/uL (0.8-4.8); Lymphocytes % 33.8 %; Mean Corpuscular HGB Conc 31.4 g/dL (30.0-36.0); Mean Corpuscular Hemoglobin 28.3 pg (28.0-34.0); Mean Corpuscular Volume 90.2 fL (81-99); Monocytes # 0.5 10^3/uL (0.2-0.9); Monocytes % 8.3 %; Neutrophils # 3.53 10^3/uL (1.8-7.7); Neutrophils % 54.3 %; Nucleated Red Blood Cells % 0 %; Platelet Count 282 10^3/cmm (130-400); Red Blood Count 3.99 10^6/uL (4.1-5.3); Red Cell Distribution Width 13.7 % (12.1-15.1); White Blood Count 6.5 10^3/uL (4.0-10.0)
[2021-02-21 05:43] LABS: Alanine Aminotransferase 9 U/L (0-33); Albumin Level 3.3 g/dL (3.5-5.2); Alkaline Phosphatase 89 IU/L (35-105); Anion Gap 10.9 (5-19); Aspartate Amino Transferase 13 U/L (0-32); Blood Urea Nitrogen 12 mg/dL (8-23); Carbon Dioxide 25 mmol/L (22-29); Chloride 108 mmol/L (98-107); Creatinine Clr Calc Pharmacy 70.0508; Globulin 2.4 g/dL (1.3-4.6); Glomerular Filtration Rate 122.3 mL/min (90-130); Glucose 136 mg/dL (65-115); Magnesium 1.8 mg/dL (1.7-2.3); Osmolality Calculated 292 mOsm/kg (285-295); Potassium 3.9 mmol/L (3.5-5.1); Sodium 140 mmol/L (136-145); Total Bilirubin 0.4 mg/dL (0.15-1.2); Total Protein 5.7 g/dL (6.6-8.7)
[2021-02-21] MEDS: acetaminophen 325 mg Tablet 650 MG PO ×2 (05:43→16:34)
--- NOTE | 2021-02-21 06:00 | USCV_ITS ---
Yasmani Teixeira Age: 70 Gender: F : 1950 Exam Date: 02/21/2021 08:14 Ordering Phys: Miles Paz MD Technologist: AIMEE Exam Location: [facility] [place] Indication: CHEST PAIN BP: 134 / 64 HR: 101 Rhythm: Sinus Technical Quality: Adequate MEASUREMENTS (Male / Female) Normal Values 2D ECHO LV Diastolic Diameter PLAX 4.2 cm 4.2 - 5.9 / 3.9 - 5.3 cm LV Systolic Diameter PLAX 3.1 cm IVS Diastolic Thickness 1.3 cm 0.6 - 1.0 / 0.6 - 0.9 cm IVS Systolic Thickness 1.7 cm LVPW Diastolic Thickness 1.1 cm 0.6 - 1.0 / 0.6 - 0.9 cm LVPW Systolic Thickness 1.0 cm LVOT Diameter 2.0 cm LV Ejection Fraction 2D Teich 49.0 % LV Ejection Fraction MOD 2C 61.9 % LV Ejection Fraction 2C AL 62.2 % LA Diameter 3.3 cm LA Width 3.4 cm LA Height 4.8 cm RA Width 2.9 cm RA Height 4.2 cm Aorta at Sinotubular Diameter 2.2 cm M-MODE LV Diastolic Diameter MM 4.5 cm 4.2 - 5.9 / 3.9 - 5.3 cm LV Systolic Diameter MM 3.1 cm LV Ejection Fraction MM Teich 59.5 % IVS Diastolic Thickness MM 1.5 cm 0.6 - 1.0 / 0.6 - 0.9 cm IVS Systolic Thickness MM 1.5 cm LVPW Diastolic Thickness MM 1.4 cm 0.6 - 1.0 / 0.6 - 0.9 cm LVPW Systolic Thickness MM 1.7 cm Aortic Annulus Diameter 2.5 cm LA Ao Ratio MM 1.3 MV E Point Septal Separation 0.6 cm FINDINGS Left Ventricle Normal LV size and ejection fraction of around 61%. Mild diffuse hypokinesia of the septum and anteroseptal segments. Right Ventricle The right ventricle is normal in size and function. Right Atrium The right atrium is normal in size. Left Atrium The left atrium is normal in size. Mitral Valve No gross abnormalities noted Aortic Valve No gross abnormalities noted Tricuspid Valve No gross abnormalities noted Pulmonic Valve No gross abnormalities noted Pericardium Thickening of the anterior pericardium Aorta Normal ascending aorta dimension. CONCLUSIONS Normal LV size and ejection fraction of around 61%. Mild diffuse hypokinesia of the septum and anteroseptal segments. Normal cardiac chamber sizes. No significant morphology abnormalities in the valves. No Intracardiac masses No pericardial effusion Compared to the study from 12/06/2020, the septal/anteroseptal wall motion has improved Dr Rey Denis MD [facility] (Electronically Signed) Final Date: 21 February 2021 09:32 S
[2021-02-21 06:48] LABS: Glucose Point of Care 162 mg/dL (70-110)
[2021-02-21] MEDS: famotidine 20 mg Tablet PO ×2 (08:09→17:51)
[2021-02-21] MEDS: metoprolol tartrate 25 mg Tablet PO ×2 (08:10→20:54)
--- NOTE | 2021-02-21 08:48 | PC.NURSE ---
Dr francisco on unit for assessment and POC came to this nurse with verbal instructions to stop Hydorcodone for pain and start dilaudid 2mg PO Q6H PRN for pain
--- NOTE | 2021-02-21 10:44 | PM.CONSULT ---
Providers/Reason For Consult Consulting Physican/Specialty*: ARVIN Denis MD/cardiology Reason for Consult*: Patient was chest pain and elevated troponin T Attending Physician: Miles Paz MD Primary Care Provider: William Chan MD History of Present Illness History of Present Illness Yasmani Teixeira is a 70 year old female with history of coronary disease, recent coronary artery bypass surgery, high blood pressure, type 2 diabetes, dyslipidemia and hypothyroidism, presents to the emergency room with complaints of chest pain and generalized weakness. She was found to have elevated troponin T. Cardiology consult is requested for further cardiac evaluation recommendations. Patient apparently has been in her baseline state of health up until night before last when she had the pain on the left side of the chest. The pain was pressure-like and was moderate intensity. It was radiating across the chest. She felt very weak and uneasy with this pain. She also was having some dysuria and urine discoloration for the last couple of days. Also might have had some nausea. No fever or chills. No cough. No unusual shortness of breath. She came to the emergency room with these complaints. She was found to have features of UTI. Her chest pain currently is gone. She denies any unusual headache or blurring of vision. This morning, she is having more nausea and stomach discomfort. This patient was recently admitted(12/06/2020) to hospital with features of unstable angina/non-ST elevation myocardial infarction. She subsequently underwent cardiac catheterization followed by three-vessel coronary artery bypass surgery by Dr. Parra. She had a VALLES to the LAD and a saphenous venous grafts to the obtuse marginal and diagonal arteries. She was discharged home in stable condition. She has been doing okay with no significant symptoms except for the soreness in her chest from the surgical incision. Review of Systems Narrative: GENERAL: The patient is alert and oriented times three. Not in any acute distress. HEENT: No significant pallor, icterus or lymphadenopathy.Oral cavity: There are no mucous membrane lesions. NECK: Trachea appears to be central. No masses noted. No JVD or thyromegaly appreciated. RESPIRATORY: Chest is symmetrical. No intercostals muscle retraction or any accessory muscle activation. There is minimal chest wall tenderness at the sternotomy site. Breath sounds are heard bilaterally. No rales or rhonchi heard. No evidence of any consolidation. BREASTS: Deferred. HEART: The heart sounds are normal. No S3 or S4. No significant murmurs. No pericardial rub ABDOMEN: No vessel pulsations or distention. Very tenderness in the left iliac fossa no organomegaly appreciated. Bowel sounds are normally heard. : Deferred. RECTAL: Deferred. LYMPHATIC: No lymphadenopathy noted in the neck or groin. EXTREMITIES: No edema or cyanosis. No clubbing. Peripheral pulses are palpated in fairly good volume and amplitude MUSCULOSKELETAL: No acute joint deformities or swelling SKIN: There are no significant rashes or ecchymosis NEUROPSYCHIATRIC: The patient is alert and oriented x3. Appears to be in a good mood. No tremors or rigidity noted. Meds/Allergies Home Medications and Allergies Home Medications Medication Instructions Recorded Confirmed Last Taken Type zolpidem 10 mg PO BEDTIME PRN 08/24/20 02/20/21 12/04/20 21:00 History glimepiride 4 mg PO BID 11/13/20 02/20/21 02/19/21 History levothyroxine 175 mcg PO QAM 11/13/20 02/20/21 02/19/21 History metoprolol tartrate 25 mg tablet 25 mg PO BID 01/15/21 02/20/21 02/19/21 History ondansetron HCl [Zofran] 4 mg PO Q6H PRN #10 tab 02/02/21 02/20/21 02/19/21 Rx aspirin [Aspir-81] 81 mg PO QAM 02/20/21 02/20/21 02/19/21 History atorvastatin 40 mg PO QAM 02/20/21 02/20/21 02/19/21 History baclofen 10 mg PO BEDTIME 02/20/21 02/20/21 02/19/21 21:00 History clopidogrel 75 mg PO QAM 02/20/21 02/20/21 02/19/21 History hydrocodone-acetaminophen 1 tab PO Q6H PRN 02/20/21 02/20/21 Unknown History insulin glargine [Lantus Solostar 14 unit SUBCUT QAM 02/20/21 02/20/21 02/19/21 History U-100 Insulin] isosorbide mononitrate 30 mg PO QAM 02/20/21 02/20/21 Unknown History lisinopril 10 mg PO QAM 02/20/21 02/20/21 02/19/21 History pantoprazole 20 mg PO DAILY 02/20/21 02/20/21 02/19/21 History Allergies Allergy/AdvReac Type Severity Reaction Status Date / Time codeine Allergy ADR-Abdominal Verified 02/20/21 11:49 Pain Current Medications Current Medications Generic Name Dose Route Start Last Admin Trade Name Freq PRN Reason Stop Dose Admin Acetaminophen 650 mg 02/20/21 16:11 02/21/21 05:43 Acetaminophen 325 Mg Tablet PO 650 mg Q6H PRN Administration Mild/Mod Pain Or Temp >/= 101 Aspirin 81 mg 02/21/21 06:00 02/21/21 05:12 Aspirin 81 Mg Ec Tablet PO 81 mg QAM RANDY Administration Atorvastatin Calcium 40 mg 02/21/21 06:00 02/21/21 05:12 Atorvastatin 40 Mg Tablet PO 40 mg QAM RANDY Administration Baclofen 10 mg 02/20/21 21:00 02/20/21 20:56 Baclofen 10 Mg Tablet PO 10 mg BEDTIME RANDY Administration Clopidogrel Bisulfate 75 mg 02/21/21 06:00 02/21/21 05:12 Clopidogrel 75 Mg Tablet PO 75 mg QAM RANDY Administration Enoxaparin Sodium 80 mg 02/21/21 06:00 02/21/21 05:12 Enoxaparin 80 Mg/0.8 Ml Syringe SUBCUT 80 mg Q12H RANDY Administration Famotidine 20 mg 02/20/21 18:00 02/21/21 08:09 Famotidine 20 Mg Tablet PO 20 mg BID RANDY Administration Hydromorphone HCl 2 mg 02/21/21 09:45 02/21/21 10:17 Hydromorphone 4 Mg Tablet PO 2 mg Q6H PRN Administration pain Ceftriaxone Sodium 1,000 mg/ 50 mls @ 100 mls/hr 02/20/21 17:00 02/20/21 18:12 Sodium Chloride IV Infused Q24H RANDY Infusion Protocol Sodium Chloride 1,000 mls @ 50 mls/hr 02/20/21 17:03 02/20/21 17:36 Sodium Chloride 0.9% IV 50 mls/hr .Q20H RANDY Administration Insulin Aspart 0 unit 02/20/21 18:00 02/21/21 08:09 Insulin Aspart 100 Unit/1 Ml SUBCUT 2 unit WM&BEDTIME RANDY Administration Protocol Isosorbide Mononitrate 30 mg 02/20/21 16:30 02/21/21 05:12 Isosorbide Mononitrate Er 30 Mg Tablet PO 30 mg QAM RANDY Administration Levothyroxine Sodium 175 mcg 02/21/21 06:00 02/21/21 05:12 Levothyroxine 175 Mcg Tablet PO 175 mcg QAM RANDY Administration Lisinopril 10 mg 02/21/21 06:00 02/21/21 05:13 Lisinopril 10 Mg Tablet PO 10 mg QAM RANDY Administration Metoprolol Tartrate 25 mg 02/20/21 21:00 02/21/21 08:10 Metoprolol Tartrate 25 Mg Tablet PO 25 mg BID@0900,2100 RANDY Administration Nitroglycerin 0.4 mg 02/20/21 12:22 02/20/21 12:44 Nitroglycerin 0.4 Mg Sublingual Tablet SUBLINGUAL 1 tab Q5M PRN Administration CHEST PAIN Ondansetron HCl 4 mg 02/20/21 16:11 02/21/21 05:13 Ondansetron 2 Mg/Ml Sdv 2 Ml IVP 4 mg Q8H PRN Administration vomiting, or N/V if npo Zolpidem Tartrate 10 mg 02/20/21 16:20 02/20/21 20:56 Zolpidem 5 Mg Tablet PO 10 mg BEDTIME PRN Administration SLEEP PFSH Acute PFSH: Medical History Fibromyalgia On as needed hydrocodone and baclofen Hyperlipidemia Not currently on treatment Hypothyroid Ovarian cancer Treated with hysterectomy with salpingo-oophorectomy Uncontrolled type 2 diabetes with neuropathy Surgical History H/O: hysterectomy History of tonsillectomy Hx of appendectomy Hx of cholecystectomy Family History Sister Cancer uterine/cervix CAD (coronary artery disease) Diabetes Mother Cancer cervix Father CAD (coronary artery disease) Brother CAD (coronary artery disease) Diabetes Grandmother Diabetes Denies family history of Clotting disorder Dementia Chronic kidney disease (CKD) Suicide Anesthesia complication Bleeding disorder Lung disease Stroke Social History Smoking and tobacco status: former smoker Alcohol intake: never Lives independently: Yes Household members: none Additional social history: Smoked for few years in her 20s Female Reproductive History: Para: 2 Vitals/I&O/Wt Last Vital Signs Temp 97.5 F L 02/21/21 07:47 Pulse 100 02/21/21 09:20 Resp 12 02/21/21 10:17 BP 134/64 02/21/21 07:47 Pulse Ox 97 02/21/21 10:17 02/20/21 02/21/21 02/21/21 22:59 06:59 14:59 Intake Total 170 / 1170 240 / 240 Balance 170 / 1170 240 / 240 Weight last 48 hrs Weight 180 lb Physical Exam Narrative: EXAM NARRATIVE: GENERAL: The patient is alert and oriented times three. Not in any acute distress. HEENT: No significant pallor, icterus or lymphadenopathy. The pupils are reactant to light. Oral cavity: There are no mucous membrane lesions. Funduscopic examination: Fundus is not visualized NECK: Trachea appears to be central. No masses noted. No JVD or thyromegaly appreciated. No carotid bruit. RESPIRATORY: The sternotomy wound appears to have healed well .chest is symmetrical. No intercostals muscle retraction or any accessory muscle activation. Minimal chest wall tenderness. Breath sounds are heard bilaterally. No rales or rhonchi heard. No evidence of any consolidation. BREASTS: Deferred. HEART: The PMI could not be palpated. No palpable precordial events. S1 and S2 are normal. No S3 or S4 heard. No pericardial rub or any click heard. ABDOMEN: No vessel pulsations or distention. No tenderness. No organomegaly appreciated. No abdominal bruit. Bowel sounds are normally heard. : Deferred. RECTAL: Deferred. LYMPHATIC: No lymphadenopathy noted in the neck . EXTREMITIES: No edema or cyanosis. No clubbing. The pulses are palpable in fairly good volume and amplitude MUSCULOSKELETAL: No acute joint deformities or swelling SKIN: There are no significant scars or skin rash noted. NEUROPSYCHIATRIC: The patient is alert and oriented x3. Appears to be in a good mood. The higher functions are grossly within normal limits. No tremors or rigidity noted. Data Labs: Other Labs: Laboratory Last Values WBC 6.5 10^3/uL (4.0- 10.0) 02/21/21 04:20 RBC 3.99 10^6/uL (4.1 -5.3) L 02/21/21 04:20 Hgb 11.3 g/dL (11.5-1 5.3) L 02/21/21 04:20 Hct 36.0 % (37.0-47.0 ) L 02/21/21 04:20 MCV 90.2 fL (81-99) 02/21/21 04:20 MCH 28.3 pg (28.0-34. 0) 02/21/21 04:20 MCHC 31.4 g/dL (30.0-3 6.0) 02/21/21 04:20 RDW 13.7 % (12.1-15.1 ) 02/21/21 04:20 Plt Count 282 10^3/cmm (130 -400) 02/21/21 04:20 MPV 10.0 fL (7.4-10.4 ) 02/21/21 04:20 Neut % (Auto) 54.3 % 02/21/21 04:20 Lymph % (Auto) 33.8 % 02/21/21 04:20 [place] % (Auto) 8.3 % 02/21/21 04:20 Eos % (Auto) 2.6 % 02/21/21 04:20 Baso % (Auto) 0.8 % 02/21/21 04:20 Neut # (Auto) 3.53 10^3/uL (1.8 -7.7) 02/21/21 04:20 Lymph # (Auto) 2.2 10^3/uL (0.8- 4.8) 02/21/21 04:20 [place] # (Auto) 0.5 10^3/uL (0.2- 0.9) 02/21/21 04:20 Eos # (Auto) 0.2 10^3/uL (0.0- 0.8) 02/21/21 04:20 Baso # (Auto) 0.1 10^3/uL (0.0- 0.1) 02/21/21 04:20 Nucleated RBC % (a uto) 0 % 02/21/21 04:20 Nucleated RBCs # 0.0 /100WBC 02/21/21 04:20 PT 13.10 SECONDS (12 .1-14.9) 02/20/21 11:30 INR 0.96 (0.8-1.2) 02/20/21 11:30 D-Dimer 0.73 ug/mIFEU (0- 0.59) H 02/20/21 11:30 Sodium 140 mmol/L (136-1 45) 02/21/21 04:20 Potassium 3.9 mmol/L (3.5-5 .1) 02/21/21 04:20 Chloride 108 mmol/L (98-10 7) H 02/21/21 04:20 Carbon Dioxide 25 mmol/L (22-29) 02/21/21 04:20 Anion Gap 10.9 (5-19) 02/21/21 04:20 BUN 12 mg/dL (8-23) 02/21/21 04:20 Creatinine 0.5 mg/dL (0.5-0. 9) 02/21/21 04:20 GFR Calculation 122.3 mL/min (90- 130) 02/21/21 04:20 Glucose 136 mg/dL (65-115 ) H 02/21/21 04:20 POC Glucose 162 mg/dL (70-110 ) H 02/21/21 06:43 Calculated Osmolal ity 292 mOsm/kg (285- 295) 02/21/21 04:20 Lactate 1.3 mmol/L (0.5-2 .2) 02/20/21 11:30 Calcium 9.0 mg/dL (8.5-10 .5) 02/21/21 04:20 Magnesium 1.8 mg/dL (1.7-2. 3) 02/21/21 04:20 Total Bilirubin 0.4 mg/dL (0.15-1 .2) 02/21/21 04:20 AST 13 U/L (0-32) 02/21/21 04:20 ALT 9 U/L (0-33) 02/21/21 04:20 Alkaline Phosphata se 89 IU/L (35-105) 02/21/21 04:20 Troponin T Baselin e 183 ng/L (0-10) H* 02/20/21 11:30 Troponin T 120 Min [place] 160.7 ng/L (0-10) H 02/20/21 13:40 Delta Troponin T -22.3 ABS# (0-10) L 02/20/21 13:40 Troponin T Hi Sens 6Hr 187.3 ng/L (0-10) H 02/20/21 18:40 Troponin T Hi Sens 6Hr Delta 4.3 ng/L (0-12) 02/20/21 18:40 NT-Pro-B Natriuret Pep 615 pg/mL (0-125) H 02/20/21 11:30 Total Protein 5.7 g/dL (6.6-8.7 ) L 02/21/21 04:20 Albumin 3.3 g/dL (3.5-5.2 ) L 02/21/21 04:20 Globulin 2.4 g/dL (1.3-4.6 ) 02/21/21 04:20 Lipase 19 U/L (13-60) 02/20/21 11:30 Urine Color [place] (Yellow) 02/20/21 13:09 Urine Appearance Clear (CLEAR) 02/20/21 13:09 Urine pH 5 (5-7) 02/20/21 13:09 Ur Specific Gravit y 1.020 (1.005-1.0 30) 02/20/21 13:09 Urine Protein 1+ (Negative) H 02/20/21 13:09 Urine Glucose (UA) 1+ (Normal) 02/20/21 13:09 Urine Ketones Negative (Negati ve) 02/20/21 13:09 Urine Blood Neg (Negative) 02/20/21 13:09 Urine Nitrate Positive (Negati ve) H 02/20/21 13:09 Urine Bilirubin 1+ (Negative) H 02/20/21 13:09 Urine Urobilinogen 4 mg/dL (Negative ) H 02/20/21 13:09 Ur Leukocyte [place] ase Negative (Negati ve) 02/20/21 13:09 Urine RBC None /hpf (0-2) 02/20/21 13:09 Urine WBC 0-4 /hpf (0-5) H 02/20/21 13:09 Ur Squamous Epith Cells 25-40 /hpf (0-5) H 02/20/21 13:09 Amorphous Sediment Not Reportable 02/20/21 13:09 Urine Bacteria Trace /hpf (NONE) 02/20/21 13:09 Hyaline Casts 5-10 /lpf H 02/20/21 13:09 Urine Mucus 2+ /hpf 02/20/21 13:09 Imaging^: Echo: My impression: Limited 2D echocardiogram today revealed Normal LV size and ejection fraction of around 61%. Mild diffuse hypokinesia of the septum and anteroseptal segments. Normal cardiac chamber sizes. No significant morphology abnormalities in the valves. No Intracardiac masses No pericardial effusion Compared to the study from 12/06/2020, the septal/anteroseptal wall motion has improved EKG^: EKG 1: My Interpretation: The EKG showed sinus tachycardia with a rate of 109 bpm. Diffuse nonspecific T wave changes. Features of old inferior wall myocardial infarction. No acute ST-T changes. A&P Assessment and plan (1) Elevated troponin: In view of the patient with chest pain and the elevated troponin T, this may suggest a non-ST elevation myocardial infarction. Possibility of a type II [place] also is a consideration. Status: Acute (2) Atherosclerotic heart disease [place] coronary artery w/angina pectoris: Patient had a three-vessel coronary bypass surgery as mentioned above. Possibility of graft occlusion/progression of disease in the [place] vessels cannot be excluded. She may require a myocardial perfusion imaging, to further evaluate the coronary status. In the meanwhile, she may continue on the current medications including aspirin, Plavix and subcu Lovenox Status: Acute Qualifiers: [place] vs. transplanted heart: [place] heart Qualified Code(s): I25.119 - Atherosclerotic heart disease of [place] coronary artery with unspecified angina pectoris (3) Benign essential HTN: The blood pressure is of stage II. We will try to optimize the antihypertensive medications. Status: Acute (4) Dyslipidemia (high LDL; low HDL): Continue on the current management. Follow-up evaluation as scheduled. Status: Acute (5) Uncontrolled type 2 diabetes with neuropathy: Aggressive blood sugar control measures would be appropriate Status: Chronic (6) UTI (urinary tract infection): Patient is on IV antibiotics. Status: Acute Qualifiers: Hematuria presence: without hematuria Urinary tract infection type: site unspecified Qualified Code(s): N39.0 - Urinary tract infection, site not specified Additional A&P Information We may consider doing a myocardial perfusion imaging, to further evaluate the coronary status as well as the graft status, to decide on further management. In the meanwhile, patient may be kept on the Plavix and aspirin and Lovenox. Thank you for the opportunity to eval this patient make these recommendations Consult Attestations Medical Necessity Statement: Patient requires continued hospital stay for close monitoring and further management Coding Level of Care Code Acute Fitness Consultant for [facility] Fwd Diagnoses Elevated troponin R77.8 Atherosclerotic heart disease [place] coronary artery w/angina pectoris I25.119 [place] vs. transplanted heart: [place] heart Benign essential HTN I10 Dyslipidemia (high LDL; low HDL) E78.5 Uncontrolled type 2 diabetes with neuropathy E11.40; E11.65 UTI (urinary tract infection) N39.0 Hematuria presence: without hematuria Urinary tract infection type: site unspecified
[2021-02-21 11:59] LABS: Glucose Point of Care 175 mg/dL (70-110)
[2021-02-21] MEDS: sodium chloride 0.9% 1,000 ML 50 ML IV (12:04)
--- NOTE | 2021-02-21 15:30 | PC.NURSE ---
Dr. Paz notified patient is experiencing migraine, prns have been administered, room darkened, stimuli reduced. Patient reports worsening of pain. Patient vomited. BP 139/85. Patient reports taking Sumatriptan at home for migraines. Telephone order to administer Sumatriptan 25 mg PO ONCE now. Pharmacy notified nurse, sumatriptan is contraindicated for diagnosis of NSTEMI. Dr. Paz was notified. Physician gave telephone order to discontinue order, no new orders received.
--- NOTE | 2021-02-21 16:00 | PC.NURSE ---
Order received to administer Sumatriptan. Order clarified with Dr. Paz. Telephone order to administer medication, physician aware of contraindications. RBTO. Nurse to continue to monitor.
[2021-02-21] MEDS: SUMAtriptan 25 mg Tablet PO (16:33)
[2021-02-21] MEDS: cefTRIAXone 1,000 MG in sodium chloride 0.9% (plus) 50 ML 100 MG IV (16:35)
[2021-02-21 16:47] LABS: Glucose Point of Care 147 mg/dL (70-110)
--- NOTE | 2021-02-21 17:35 | P.PN_ITS ---
Subjective Subjective: Interval history: Patient was seen and evaluated this she denies any chest pain, though she is complaining of difficulty initiating urine. her other vitals and labs have been reviewed. Medications: Reviewed: Yes Vitals/I&O/Wt Last Vital Signs Temp 97.6 F 02/21/21 15:16 Pulse 85 02/21/21 15:16 Resp 17 02/21/21 15:16 BP 170/92 02/21/21 15:16 Pulse Ox 95 02/21/21 15:16 02/21/21 02/21/21 02/21/21 06:59 14:59 22:59 Intake Total 1283.333 / 1283.333 237 / 1520.333 Balance 1283.333 / 1283.333 237 / 1520.333 Weight last 48 hrs Weight 81.647 kg Physical Exam Const: COMMON NORMALS: patient oriented x3 HENMT: COMMON NORMALS: normocephalic and atraumatic HEAD & SCALP: normocephalic and atraumatic Chest: CHEST: Yes Symmetrical chest wall rise Resp: COMMON NORMALS: clear to auscultation bilaterally EFFORT & INSPECTION: Yes symmetric chest movement AUSCULTATION: clear to auscultation bilaterally Cardio: COMMON NORMALS: regular rate, regular rhythm, S1 normal heart sound present, S2 normal heart sound present, No gallops present (Cardio), No murmurs present (Cardio), No rub (Cardio) and Peripheral pulses 2+ throughout RATE: regular rate RHYTHM: regular rhythm HEART SOUNDS: S1 normal heart sound present and S2 normal heart sound present PERIPHERAL PULSES: Peripheral pulses 2+ throughout GI: COMMON NORMALS: Normal to inspection, nondistended, normoactive bowel sounds present, Soft to palpation, non-tender, No hepatosplenomegaly present and no masses AUSCULTATION: Yes normoactive bowel sounds PALPATION: Yes Soft to palpation and Yes No hepatosplenomegaly present RECTAL EXAM: deferred Extremity: COMMON NORMALS: no clubbing, cyanosis or edema and no pedal edema Neuro: COMMON NORMALS: patient oriented x3 Data : 02/21/21 04:20 02/21/21 04:20 A&P Assessment and plan (1) Non-ST elevated myocardial infarction (non-STEMI): NSTEMI type I versus type II 2D Echo :Normal LV size and ejection fraction of around 61%. Mild diffuse hyp okinesia of the septum and anteroseptal segments. Normal cardiac chamber sizes. No significant morphology abnormalities in the valves. No Intracardiac masses No pericardial effusion. Serial EKG: Has failed to show any acute myocardial insult Trend Troponin: Troponin T baseline: 183, 2h: 160, 2-hour delta: -22, troponin T 6 hours: 187, 6h D: 4.3 Aspirin 81 mg po daily Plavix 75 mg po daily Lipitor 40 mg po daily MT 25 MG PO BID Lisinopril 10 mg po daily Lovenox 80 mg q12 h daily IMDUR 30 MG PO DAILY 0.4 MG SL Nitro PRN Appreciate cardiology Rec Status: Acute (2) UTI (urinary tract infection): Ceftriaxone 1 g every 24 hours daily Follow urine culture Status: Acute Qualifiers: Urinary tract infection type: site unspecified Hematuria presence: without hematuria Qualified Code(s): N39.0 - Urinary tract infection, site not specified (3) Benign essential HTN: Status: Acute (4) Status post aorto-coronary artery bypass graft: Status: Acute (5) Dyslipidemia (high LDL; low HDL): Status: Acute (6) Fibromyalgia: Hydrocodone was not working for her. Currently switched to Dilaudid 2 mg p.o. every 6h Status: Acute (7) Uncontrolled type 2 diabetes with neuropathy: Status: Chronic (8) Hypothyroid: Status: Acute Qualifiers: Hypothyroidism type: acquired Qualified Code(s): E03.9 - Hypothyroidism, unspecified Attestations Medical Necessity Statement*: Patient needs to be in hospital for management of NSTEMI type I versus type II Coding Level of Care Code Acute Staff Certified Nurse Midwife for [facility] Fwd Diagnoses Non-ST elevated myocardial infarction (non-STEMI) I21.4 UTI (urinary tract infection) N39.0 Urinary tract infection type: site unspecified Hematuria presence: without hematuria Benign essential HTN I10 Status post aorto-coronary artery bypass graft Z95.1 Dyslipidemia (high LDL; low HDL) E78.5 Fibromyalgia M79.7 Uncontrolled type 2 diabetes with neuropathy E11.40; E11.65 Hypothyroid E03.9 Hypothyroidism type: acquired
--- NOTE | 2021-02-21 19:33 | PC.NURSE ---
Received bedside report from KARISSA Lozoya. Patient has been c/o migraine headache today. Medication was given as ordered. Patient sitting in dark room watching tv presently. Reports much improvement of her head. Still has some kidney pain. Heat provided.
[2021-02-21 20:21] LABS: Glucose Point of Care 216 mg/dL (70-110)
--- NOTE | 2021-02-21 20:38 | PC.NURSE ---
Patient requesting to stop the Dilaudid reporting it makes her feel funny and does not like the feeling. Requesting to continue to taker her home dose of hydrocodone 5/[address] De La Cruz and informed him of her request and received telephone orders to discontinue the Dilaudid and to resume hydrocodone 5/325 every 4 hours PRN for pain. RBVO
[2021-02-21] MEDS: zolpidem 5 mg Tablet 10 MG PO (20:53)
[2021-02-21] MEDS: baclofen 10 mg Tablet PO (20:54)
[2021-02-22] VITALS (10 sets, daily range): BP systolic 124–163; BP diastolic 70–94; PULSE 75–105; RESP 12–25; TEMP 36.5–36.7; O2SAT 92–96
[2021-02-22] MEDS: HYDROcodone-acetaminophen 5-325 mg Tablet 1 TAB PO ×4 (00:47→21:12)
[2021-02-22] MEDS: acetaminophen 325 mg Tablet 650 MG PO (02:39)
--- NOTE | 2021-02-22 04:54 | PC.NURSE ---
patient c/o return of migraine headache. Patient is about to have max dose of Tylenol for 24 hour period. Patient stated, Tylenol is just not working. Informed Dr De La Cruz and doctor placed order for Imitrex 25mg PO onetime only for this time.
[2021-02-22] MEDS: aspirin 81 mg EC Tablet PO (05:08)
[2021-02-22] MEDS: enoxaparin 80 mg/0.8 mL Syringe SUBCUT ×2 (05:08→17:08)
[2021-02-22] MEDS: SUMAtriptan 25 mg Tablet PO (05:08)
[2021-02-22] MEDS: lisinopril 10 mg Tablet PO (05:08)
[2021-02-22] MEDS: levothyroxine 175 mcg Tablet PO (05:08)
[2021-02-22] MEDS: clopidogrel 75 mg Tablet PO (05:08)
[2021-02-22] MEDS: atorvastatin 40 mg Tablet PO (05:08)
[2021-02-22] MEDS: isosorbide mononitrate ER 30 mg Tablet PO (05:08)
[2021-02-22 05:25] LABS: Basophils # 0.1 10^3/uL (0.0-0.1); Basophils % 0.8 %; Eosinophils # 0.2 10^3/uL (0.0-0.8); Eosinophils % 3.2 %; Hematocrit 37.6 % (37.0-47.0); Hemoglobin 11.9 g/dL (11.5-15.3); Lymphocytes # 2.4 10^3/uL (0.8-4.8); Mean Corpuscular HGB Conc 31.6 g/dL (30.0-36.0); Mean Corpuscular Hemoglobin 28.2 pg (28.0-34.0); Mean Corpuscular Volume 89.1 fL (81-99); Mean Platelet Volume 9.8 fL (7.4-10.4); Monocytes # 0.6 10^3/uL (0.2-0.9); Monocytes % 9.5 %; Neutrophils # 3.01 10^3/uL (1.8-7.7); Neutrophils % 48.2 %; Nucleated Red Blood Cells % 0 %; Platelet Count 265 10^3/cmm (130-400); Red Blood Count 4.22 10^6/uL (4.1-5.3); Red Cell Distribution Width 13.6 % (12.1-15.1); White Blood Count 6.2 10^3/uL (4.0-10.0)
[2021-02-22 05:48] LABS: Alanine Aminotransferase 9 U/L (0-33); Albumin Level 3.4 g/dL (3.5-5.2); Alkaline Phosphatase 95 IU/L (35-105); Anion Gap 12.8 (5-19); Aspartate Amino Transferase 10 U/L (0-32); Blood Urea Nitrogen 7 mg/dL (8-23); Calcium 9.1 mg/dL (8.5-10.5); Carbon Dioxide 24 mmol/L (22-29); Chloride 107 mmol/L (98-107); Creatinine Clr Calc Pharmacy 70.0508; Globulin 2.8 g/dL (1.3-4.6); Glomerular Filtration Rate 122.3 mL/min (90-130); Glucose 182 mg/dL (65-115); Osmolality Calculated 293 mOsm/kg (285-295); Potassium 3.8 mmol/L (3.5-5.1); Sodium 140 mmol/L (136-145); Total Bilirubin 0.3 mg/dL (0.15-1.2); Total Protein 6.2 g/dL (6.6-8.7)
[2021-02-22 06:42] LABS: Glucose Point of Care 201 mg/dL (70-110)
[2021-02-22] MEDS: ondansetron 2 mg/ML SDV 2 mL 4 MG IVP (07:40)
--- NOTE | 2021-02-22 08:00 | PC.NURSE ---
Pt sitting up in bed talking to staff. Pt Resp even and non-labored no distress noted. Pt c/o back pain and headache. Pt IV patent no redness or swelling noted. Pt call light in reach. Will cont to monitor.
[2021-02-22] MEDS: metoprolol tartrate 25 mg Tablet PO ×2 (08:25→21:12)
[2021-02-22] MEDS: famotidine 20 mg Tablet PO ×2 (08:25→17:07)
[2021-02-22] MEDS: tamsulosin 0.4 mg Capsule PO (08:26)
[2021-02-22] MEDS: sodium chloride 0.9% 1,000 ML 50 ML IV (08:26)
[2021-02-22] MEDS: bisacodyl 5 mg Tablet 10 MG PO (08:39)
[2021-02-22 11:40] LABS: Glucose Point of Care 203 mg/dL (70-110)
--- NOTE | 2021-02-22 12:11 | P.PN_ITS ---
Subjective Subjective: Interval history: Patient was seen and evaluated this morning she denies any chest pain,she is complaining of headache which she attributes to her current abxs. Medications: Reviewed: Yes Vitals/I&O/Wt Last Vital Signs Temp 98.1 F 02/22/21 11:21 Pulse 90 02/22/21 11:21 Resp 12 02/22/21 11:21 BP 142/82 02/22/21 11:21 Pulse Ox 96 02/22/21 11:21 02/21/21 02/22/21 02/22/21 22:59 06:59 14:59 Intake Total 632.833 / 3477.628 2576.5 / 1007.5 Output Total 1400 / 1400 Balance 632.833 / 1916.166 -1400 / 974.470 6572.5 / 1007.5 Physical Exam Const: COMMON NORMALS: patient oriented x3 HENMT: COMMON NORMALS: normocephalic and atraumatic HEAD & SCALP: normocephalic and atraumatic Chest: CHEST: Yes Symmetrical chest wall rise Resp: COMMON NORMALS: clear to auscultation bilaterally EFFORT & INSPECTION: Yes symmetric chest movement AUSCULTATION: clear to auscultation bilaterally Cardio: COMMON NORMALS: regular rate, regular rhythm, S1 normal heart sound present, S2 normal heart sound present, No gallops present (Cardio), No murmurs present (Cardio), No rub (Cardio) and Peripheral pulses 2+ throughout RATE: regular rate RHYTHM: regular rhythm HEART SOUNDS: S1 normal heart sound present and S2 normal heart sound present PERIPHERAL PULSES: Peripheral pulses 2+ throughout GI: COMMON NORMALS: Normal to inspection, nondistended, normoactive bowel sounds present, Soft to palpation, non-tender, No hepatosplenomegaly present and no masses AUSCULTATION: Yes normoactive bowel sounds PALPATION: Yes Soft to palpation and Yes No hepatosplenomegaly present RECTAL EXAM: deferred Extremity: COMMON NORMALS: no clubbing, cyanosis or edema and no pedal edema Neuro: COMMON NORMALS: patient oriented x3 Data : 02/22/21 04:57 02/22/21 04:57 A&P Assessment and plan (1) Non-ST elevated myocardial infarction (non-STEMI): NSTEMI type I versus type II 2D Echo :Normal LV size and ejection fraction of around 61%. Mild diffuse hypokinesia of the septum and anteroseptal segments. Normal cardiac chamber sizes. No significant morphology abnormalities in the valves. No Intracardiac masses No pericardial effusion. Serial EKG: Has failed to show any acute myocardial insult Trend Troponin: Troponin T baseline: 183, 2h: 160, 2-hour delta: -22, troponin T 6 hours: 187, 6h D: 4.3 Aspirin 81 mg po daily Plavix 75 mg po daily Lipitor 40 mg po daily MT 25 MG PO BID Lisinopril 10 mg po daily Lovenox 80 mg q12 h daily IMDUR 30 MG PO DAILY 0.4 MG SL Nitro PRN Appreciate cardiology Rec Status: Acute (2) UTI (urinary tract infection): Initially on Ceftriaxone 1 g every 24 hours daily. Changed to Levofloxacin 500 mg po daily Follow urine culture Status: Acute Qualifiers: Urinary tract infection type: site unspecified Hematuria presence: without hematuria Qualified Code(s): N39.0 - Urinary tract infection, site not specified (3) Benign essential HTN: Status: Acute (4) Status post aorto-coronary artery bypass graft: Status: Acute (5) Dyslipidemia (high LDL; low HDL): Status: Acute (6) Fibromyalgia: Hydrocodone was not working for her. Currently switched to Dilaudid 2 mg p.o. every 6h Status: Acute (7) Uncontrolled type 2 diabetes with neuropathy: Status: Chronic (8) Hypothyroid: Levothyroxine 175 mcg po daily Status: Acute Qualifiers: Hypothyroidism type: acquired Qualified Code(s): E03.9 - Hypothyroidism, unspecified (9) Migraine: On [place]. Avoid Trigger Status: Acute Attestations Medical Necessity Statement*: Patient needs to be in hospital for the management of NSTEMI. Coding Level of Care Code Acute Brazing Furnace Operator for Chg Fwd Diagnoses Non-ST elevated myocardial infarction (non-STEMI) I21.4 UTI (urinary tract infection) N39.0 Urinary tract infection type: site unspecified Hematuria presence: without hematuria Benign essential HTN I10 Status post aorto-coronary artery bypass graft Z95.1 Dyslipidemia (high LDL; low HDL) E78.5 Fibromyalgia M79.7 Uncontrolled type 2 diabetes with neuropathy E11.40; E11.65 Hypothyroid E03.9 Hypothyroidism type: acquired Migraine G43.909
[2021-02-22] MEDS: aspirin 81 mg EC Tablet 162 MG PO (16:15)
--- NOTE | 2021-02-22 16:45 | PC.CHAP ---
Pastoral Care Encounter/Spiritual Assessment Type of Contact [XX] Declined cabinet installer visit [] Patient/Family/Request visit [] Outpatient visit [] Follow-up visit [] Physician referral [] Code/Alert [] Routine visit [] Staff referral [] Actively dying [] Patient sleeping [] Family support [] [] Out of room [] Palliative care [] [] Receiving care in room [] Pre-surgical visit [] Trauma [] Long length of stay [] ICU visit [] Other: Relational/Emotional Strength [] Patient feels connected with others/family/visitors/staff [] Distress [] Loneliness/isolation [] Abandonment Spirituality of Patient [] Person of Vilma [] Attends Jain of their Vilma [] Believes in Prayer [] Reads Bible or Zoroastrian materials [] There are Spiritual issues to be addressed Cinder Worker Interventions [] Prayer [] Active listening [] Non-anxious presence [] Spiritual/emotional support [] Crisis/trauma care [] Spiritual counseling [] Bereavement support [] Provided bereavement packet [] Provided Bible/devotional materials [] Provided toy/stuffed animal, coloring book to patient or family member [] Provided Communion [] Anointing/[place] [] Salvation [] Completed spiritual assessment [] Other: Impact on Illness or Injury [] Angry [] Fearful [] Anxious [] Often cries [] Exhaustion [] Unable to work [] Unable to attend hinduism [] Unable to walk/stand [] Unable to read [] Unable to drive [] Unable to eat/drink [] Unable to sleep [] Unable to be with family [] Patient intubated [] Other: Summary Time spent with patient
[2021-02-22 20:13] LABS: Glucose Point of Care 230 mg/dL (70-110)
[2021-02-22 20:13] LABS: Glucose Point of Care 143 mg/dL (70-110)
[2021-02-22] MEDS: zolpidem 5 mg Tablet 10 MG PO (21:12)
[2021-02-22] MEDS: baclofen 10 mg Tablet PO (21:13)
--- NOTE | 2021-02-22 21:23 | PM.PN ---
Subjective Subjective: Interval history: Patient denies any chest pain or shortness of breath. Denies any fever. She is on IV antibiotics. Medications: Reviewed: Yes Medication Review Details: Current Medications Acetaminophen (Acetaminophen 325 Mg Tablet) 650 mg PO Q6H PRN PRN Reason: Mild/Mod Pain Or Temp >/= 101 Last Admin: 02/22/21 02:39 Dose: 650 mg Documented by: Hydrocodone Bitart/Acetaminophen (Hydrocodone-Acetaminophen 5-325 Mg Tablet) 1 tab PO Q4H PRN PRN Reason: MODERATE PAIN Last Admin: 02/22/21 21:12 Dose: 1 tab Documented by: Aspirin (Aspirin 81 Mg Ec Tablet) 81 mg PO [facility] Last Admin: 02/22/21 05:08 Dose: 81 mg Documented by: Atorvastatin Calcium (Atorvastatin 40 Mg Tablet) 40 mg PO [facility] Last Admin: 02/22/21 05:08 Dose: 40 mg Documented by: Baclofen (Baclofen 10 Mg Tablet) 10 mg PO BEDTIME [facility] Last Admin: 02/22/21 21:13 Dose: 10 mg Documented by: Bisacodyl (Bisacodyl 5 Mg Tablet) 10 mg PO DAILY PRN PRN Reason: CONSTIPATION Last Admin: 02/22/21 08:39 Dose: 10 mg Documented by: Clopidogrel Bisulfate (Clopidogrel 75 Mg Tablet) [facility] [place] Last Admin: 02/22/21 05:08 Dose: 75 mg Documented by: Dextrose (Dextrose 50% Syringe 50 Ml) 25 ml IVP ONCE PRN; Protocol PRN Reason: hypoglycemia protocol Dextrose (Dextrose 50% Syringe 50 Ml) 50 ml IVP PRN PRN; Protocol PRN Reason: hypoglycemia protocol Enoxaparin Sodium (Enoxaparin 80 Mg/0.8 Ml Syringe) 80 mg SUBCUT Q12H [facility] Last Admin: 02/22/21 17:08 Dose: 80 mg Documented by: Famotidine (Famotidine 20 Mg Tablet) 20 mg PO BID [facility] Last Admin: 02/22/21 17:07 Dose: 20 mg Documented by: Glucagon (Glucagon 1 Mg/Ml Inj 1 Ml) 1 mg IM ONCE PRN; Protocol PRN Reason: Adult Acute Hypoglycemia Prot. Dextrose (D5w) 500 mls @ 100 mls/hr IV ONCE PRN; Protocol PRN Reason: Adult Acute Hypoglycemia Prot Insulin Aspart (Insulin Aspart 100 Unit/1 Ml) 0 unit SUBCUT WM&BEDTIME [facility]; Protocol Last Admin: 02/22/21 21:13 Dose: 6 unit Documented by: Isosorbide Mononitrate (Isosorbide Mononitrate Er 30 Mg Tablet) 30 mg PO [facility] Last Admin: 02/22/21 05:08 Dose: 30 mg Documented by: Levofloxacin (Levofloxacin 500 Mg Tablet) 500 mg PO DAILY@0600 [facility]; Protocol Levothyroxine Sodium (Levothyroxine 175 Mcg Tablet) 175 mcg PO [facility] Last Admin: 02/22/21 05:08 Dose: 175 mcg Documented by: Lisinopril (Lisinopril 10 Mg Tablet) 10 mg PO [facility] Last Admin: 02/22/21 05:08 Dose: 10 mg Documented by: Metoprolol Tartrate (Metoprolol Tartrate 25 Mg Tablet) 25 mg PO BID@0900,2100 [facility] Last Admin: 02/22/21 21:12 Dose: 25 mg Documented by: Naloxone HCl (Naloxone 0.4 Mg/Ml Sdv) 0.1 mg IVP Q2M PRN PRN Reason: OPIATERV Nitroglycerin (Nitroglycerin 0.4 Mg Sublingual Tablet) 0.4 mg SUBLINGUAL Q5M PRN PRN Reason: CHEST PAIN Last Admin: 02/20/21 12:44 Dose: 1 tab Documented by: Ondansetron HCl (Ondansetron 2 Mg/Ml Sdv 2 Ml) 4 mg IVP Q8H PRN PRN Reason: vomiting, or N/V if npo Last Admin: 02/22/21 07:40 Dose: 4 mg Documented by: Tamsulosin HCl (Tamsulosin 0.4 Mg Capsule) 0.4 mg PO DAILY [facility] Last Admin: 02/22/21 08:26 Dose: 0.4 mg Documented by: Zolpidem Tartrate (Zolpidem 5 Mg Tablet) 10 mg PO BEDTIME PRN PRN Reason: SLEEP Last Admin: 02/22/21 21:12 Dose: 10 mg Documented by: Vitals/I&O/Wt Last Vital Signs Temp 98.1 F 02/22/21 19:25 Pulse 105 H 02/22/21 19:25 Resp 14 02/22/21 19:25 BP 124/77 02/22/21 19:25 Pulse Ox 92 02/22/21 19:25 02/22/21 02/22/21 02/22/21 06:59 14:59 22:59 Intake Total 1007.5 / 1007.5 360 / 1367.5 Output Total 1400 / 1400 Balance -1400 / 988.903 0739.5 / 1007.5 360 / 1367.5 Physical Exam Narrative: EXAM NARRATIVE: GENERAL: The patient is alert and oriented times three. Not in any acute distress. HEENT: No significant pallor, icterus or lymphadenopathy. The pupils are reactant to light. Oral cavity: There are no mucous membrane lesions. Funduscopic examination: Fundus is not visualized NECK: Trachea appears to be central. No masses noted. No JVD or thyromegaly appreciated. No carotid bruit. RESPIRATORY: The sternotomy wound appears to have healed well .chest is symmetrical. No intercostals muscle retraction or any accessory muscle activation. Minimal chest wall tenderness. Breath sounds are heard bilaterally. No rales or rhonchi heard. No evidence of any consolidation. BREASTS: Deferred. HEART: The PMI could not be palpated. No palpable precordial events. S1 and S2 are normal. No S3 or S4 heard. No pericardial rub or any click heard. ABDOMEN: No vessel pulsations or distention. No tenderness. No organomegaly appreciated. No abdominal bruit. Bowel sounds are normally heard. : Deferred. RECTAL: Deferred. LYMPHATIC: No lymphadenopathy noted in the neck . EXTREMITIES: No edema or cyanosis. No clubbing. The pulses are palpable in fairly good volume and amplitude MUSCULOSKELETAL: No acute joint deformities or swelling SKIN: There are no significant scars or skin rash noted. NEUROPSYCHIATRIC: The patient is alert and oriented x3. Appears to be in a good mood. The higher functions are grossly within normal limits. No tremors or rigidity noted. Data : 02/22/21 04:57 02/22/21 04:57 Other Labs: Laboratory Last Values WBC 6.2 10^3/uL (4.0-10.0) 02/22/21 04:57 RBC 4.22 10^6/uL (4.1-5.3) 02/22/21 04:57 Hgb 11.9 g/dL (11.5-15.3) 02/22/21 04:57 Hct 37.6 % (37.0-47.0) 02/22/21 04:57 MCV 89.1 fL (81-99) 02/22/21 04:57 MCH 28.2 pg (28.0-34.0) 02/22/21 04:57 MCHC 31.6 g/dL (30.0-36.0) 02/22/21 04:57 RDW 13.6 % (12.1-15.1) 02/22/21 04:57 Plt Count 265 10^3/cmm (130-400) 02/22/21 04:57 MPV 9.8 fL (7.4-10.4) 02/22/21 04:57 Neut % (Auto) 48.2 % 02/22/21 04:57 Lymph % (Auto) 38.0 % 02/22/21 04:57 [place] % (Auto) 9.5 % 02/22/21 04:57 Eos % (Auto) 3.2 % 02/22/21 04:57 Baso % (Auto) 0.8 % 02/22/21 04:57 Neut # (Auto) 3.01 10^3/uL (1.8-7.7) 02/22/21 04:57 Lymph # (Auto) 2.4 10^3/uL (0.8-4.8) 02/22/21 04:57 [place] # (Auto) 0.6 10^3/uL (0.2-0.9) 02/22/21 04:57 Eos # (Auto) 0.2 10^3/uL (0.0-0.8) 02/22/21 04:57 Baso # (Auto) 0.1 10^3/uL (0.0-0.1) 02/22/21 04:57 Nucleated RBC % (auto) 0 % 02/22/21 04:57 Nucleated RBCs # 0.0 /100WBC 02/22/21 04:57 PT 13.10 SECONDS (12.1-14.9) 02/20/21 11:30 INR 0.96 (0.8-1.2) 02/20/21 11:30 D-Dimer 0.73 ug/mIFEU (0-0.59) H 02/20/21 11:30 Sodium 140 mmol/L (136-145) 02/22/21 04:57 Potassium 3.8 mmol/L (3.5-5.1) 02/22/21 04:57 Chloride 107 mmol/L (98-107) 02/22/21 04:57 Carbon Dioxide 24 mmol/L (22-29) 02/22/21 04:57 Anion Gap 12.8 (5-19) 02/22/21 04:57 BUN 7 mg/dL (8-23) L 02/22/21 04:57 Creatinine 0.5 mg/dL (0.5-0.9) 02/22/21 04:57 GFR Calculation 122.3 mL/min (90-130) 02/22/21 04:57 Glucose 182 mg/dL (65-115) H 02/22/21 04:57 POC Glucose 230 mg/dL (70-110) H 02/22/21 19:28 Calculated Osmolality 293 mOsm/kg (285-295) 02/22/21 04:57 Lactate 1.3 mmol/L (0.5-2.2) 02/20/21 11:30 Calcium 9.1 mg/dL (8.5-10.5) 02/22/21 04:57 Magnesium 1.8 mg/dL (1.7-2.3) 02/21/21 04:20 Total Bilirubin 0.3 mg/dL (0.15-1.2) 02/22/21 04:57 AST 10 U/L (0-32) 02/22/21 04:57 ALT 9 U/L (0-33) 02/22/21 04:57 Alkaline Phosphatase 95 IU/L (35-105) 02/22/21 04:57 Troponin T Baseline 183 ng/L (0-10) H* 02/20/21 11:30 Troponin T 120 Minute 160.7 ng/L (0-10) H 02/20/21 13:40 Delta Troponin T -22.3 ABS# (0-10) L 02/20/21 13:40 Troponin T Hi Sens 6Hr 187.3 ng/L (0-10) H 02/20/21 18:40 Troponin T Hi Sens 6Hr Delta 4.3 ng/L (0-12) 02/20/21 18:40 NT-Pro-B Natriuret Pep 615 pg/mL (0-125) H 02/20/21 11:30 Total Protein 6.2 g/dL (6.6-8.7) L 02/22/21 04:57 Albumin 3.4 g/dL (3.5-5.2) L 02/22/21 04:57 Globulin 2.8 g/dL (1.3-4.6) 02/22/21 04:57 Lipase 19 U/L (13-60) 02/20/21 11:30 Urine Color [place] (Yellow) 02/20/21 13:09 Urine Appearance Clear (CLEAR) 02/20/21 13:09 Urine pH 5 (5-7) 02/20/21 13:09 Ur Specific [place] 1.020 (1.005-1.030) 02/20/21 13:09 Urine Protein 1+ (Negative) H 02/20/21 13:09 Urine Glucose (UA) 1+ (Normal) 02/20/21 13:09 Urine Ketones Negative (Negative) 02/20/21 13:09 Urine Blood Neg (Negative) 02/20/21 13:09 Urine Nitrate Positive (Negative) H 02/20/21 13:09 Urine Bilirubin 1+ (Negative) H 02/20/21 13:09 Urine Urobilinogen 4 mg/dL (Negative) H 02/20/21 13:09 Ur Leukocyte Esterase Negative (Negative) 02/20/21 13:09 Urine RBC None /hpf (0-2) 02/20/21 13:09 Urine WBC 0-4 /hpf (0-5) H 02/20/21 13:09 Ur Squamous Epith Cells 25-40 /hpf (0-5) H 02/20/21 13:09 Amorphous Sediment Not Reportable 02/20/21 13:09 Urine Bacteria Trace /hpf (NONE) 02/20/21 13:09 Hyaline Casts 5-10 /lpf H 02/20/21 13:09 Urine Mucus 2+ /hpf 02/20/21 13:09 A&P Assessment and plan (1) Elevated troponin: In view of the patient with chest pain and the elevated troponin T, this may suggest a non-ST elevation myocardial infarction. Possibility of a type II ME also is a consideration. For further evaluation, we may go ahead and do a myocardial perfusion imaging. Status: Acute (2) Atherosclerotic heart disease [place] coronary artery w/angina pectoris: Patient had a three-vessel coronary bypass surgery as mentioned above. Possibility of graft occlusion/progression of disease in the [place] vessels cannot be excluded. She may require a myocardial perfusion imaging, to further evaluate the coronary status. In the meanwhile, she may continue on the current medications including aspirin, Plavix and subcu Lovenox Status: Acute Qualifiers: [place] vs. transplanted heart: [place] heart Qualified Code(s): I25.119 - Atherosclerotic heart disease of [place] coronary artery with unspecified angina pectoris (3) Benign essential HTN: The blood pressure is of stage II. We will continue to optimize the antihypertensive medications. Status: Acute (4) Dyslipidemia (high LDL; low HDL): Continue on the current management. Follow-up evaluation as scheduled. Status: Acute (5) Uncontrolled type 2 diabetes with neuropathy: Aggressive blood sugar control measures would be appropriate Status: Chronic (6) UTI (urinary tract infection): Patient is on IV antibiotics. Management as per the primary Status: Acute Qualifiers: Urinary tract infection type: site unspecified Hematuria presence: without hematuria Qualified Code(s): N39.0 - Urinary tract infection, site not specified Additional A&P Information We will go ahead and schedule the Lexiscan/sestamibi/sestamibi stress test in the morning. Based on the results, further recommendations will be made. Attestations Medical Necessity Statement*: Patient requires continued hospital stay for close monitoring and further management Coding Level of Care Code Acute Lang Path Therapist for Chg Fwd Diagnoses Elevated troponin R77.8 Atherosclerotic heart disease [place] coronary artery w/angina pectoris I25.119 [place] vs. transplanted heart: [place] heart Benign essential HTN I10 Dyslipidemia (high LDL; low HDL) E78.5 Uncontrolled type 2 diabetes with neuropathy E11.40; E11.65 UTI (urinary tract infection) N39.0 Urinary tract infection type: site unspecified Hematuria presence: without hematuria
[2021-02-23] VITALS (80 sets, daily range): BP systolic 91–166; BP diastolic 52–102; PULSE 78–120; RESP 10–24; TEMP 36.6–36.8; O2SAT 93–98
--- NOTE | 2021-02-23 00:08 | NMCV_ITS ---
NM bijan perf SPECT r/s* [id number] Yasmani Teixeira Age: 70 Gender: F : 1950 Exam Date: 02/23/2021 07:24 Ordering Phys: Rey Denis MD ([email or web address]) Technologist: MARGARITA Joseph Exam Location: [facility] Indications: CHEST/KIDNEY PAIN STRESS TEST Please see separate stress test report in [facility] for full findings IMAGE PROTOCOL Rest/Stress 1 Lexiscan Day Radiopharmaceutical Dose (mCi) Administration Site Administered by Rest: Tc-99m 10.9 IV MARGARITA Banuelos Sestamibi Stress:Tc-99m 32.9 IV MARGARITA Banuelos Sestamibi Rest: 23-Feb-2021 60 Discovery 630 Stress: 23-Feb-2021 30 Discovery 630 0.4mg Lexiscan. Supine position only as patient was unable to lay prone. SPECT RESULTS Technical Quality: Good Raw Data Analysis: Normal Image Corrections: No attenuation or motion correction applied Summed Stress Score: 11 Summed Rest Score: 6 Summed Difference Score: 5 PERFUSION FINDINGS Bradycardia decreased aseptic were noted in the basal and mid inferolateral, anterolateral and apical lateral regions. Significant reversibility was noted in these regions at rest. FUNCTIONAL RESULTS (calculated via Gated SPECT) Stress Image LV EF (%): 78 Stress EDV (mL):45 TID: 0.62 Stress ESV (mL):10 FUNCTIONAL FINDINGS: Segmental wall motion analysis revealing no gross wall motion abnormalities. IMPRESSIONS 1. Myocardial perfusion imaging revealing moderate area of moderate to severely decreased tracer uptake in the anterolateral, inferolateral and apical lateral regions with a significant reversibility, suggestive of myocardial scarring with ischemia mostly in the distribution of the left circumflex artery. 2. Normal LV ejection fraction 78%. 3. LV wall motion analysis revealing no gross wall motion normalities. 4. Normal LV volume. No similar previous studies are available for comparison Dr Rey Denis MD [facility] (Electronically Signed) Final Date: 23 February 2021 10:34 S
[2021-02-23] MEDS: HYDROcodone-acetaminophen 5-325 mg Tablet 1 TAB PO ×3 (04:26→20:54)
[2021-02-23] MEDS: enoxaparin 80 mg/0.8 mL Syringe SUBCUT (05:09)
[2021-02-23] MEDS: clopidogrel 75 mg Tablet PO (05:09)
[2021-02-23] MEDS: aspirin 81 mg EC Tablet PO (05:09)
[2021-02-23] MEDS: levoFLOXacin 500 mg Tablet PO (05:09)
[2021-02-23] MEDS: isosorbide mononitrate ER 30 mg Tablet PO (05:09)
[2021-02-23] MEDS: lisinopril 10 mg Tablet PO (05:09)
[2021-02-23] MEDS: atorvastatin 40 mg Tablet PO (05:09)
[2021-02-23] MEDS: levothyroxine 175 mcg Tablet PO (05:09)
[2021-02-23 05:56] LABS: Basophils # 0.1 10^3/uL (0.0-0.1); Basophils % 0.8 %; Eosinophils # 0.2 10^3/uL (0.0-0.8); Eosinophils % 3.3 %; Hematocrit 37.3 % (37.0-47.0); Hemoglobin 11.8 g/dL (11.5-15.3); Lymphocytes # 2.1 10^3/uL (0.8-4.8); Lymphocytes % 33.7 %; Mean Corpuscular HGB Conc 31.6 g/dL (30.0-36.0); Mean Corpuscular Hemoglobin 28.4 pg (28.0-34.0); Mean Corpuscular Volume 89.7 fL (81-99); Mean Platelet Volume 9.6 fL (7.4-10.4); Monocytes # 0.6 10^3/uL (0.2-0.9); Monocytes % 9.5 %; Neutrophils # 3.21 10^3/uL (1.8-7.7); Neutrophils % 52.4 %; Nucleated Red Blood Cells % 0 %; Platelet Count 277 10^3/cmm (130-400); Red Blood Count 4.16 10^6/uL (4.1-5.3); Red Cell Distribution Width 13.4 % (12.1-15.1); White Blood Count 6.1 10^3/uL (4.0-10.0)
[2021-02-23 06:15] LABS: Alanine Aminotransferase 9 U/L (0-33); Albumin Level 3.3 g/dL (3.5-5.2); Alkaline Phosphatase 91 IU/L (35-105); Anion Gap 12.6 (5-19); Aspartate Amino Transferase 10 U/L (0-32); Blood Urea Nitrogen 8 mg/dL (8-23); Carbon Dioxide 25 mmol/L (22-29); Chloride 102 mmol/L (98-107); Creatinine Clr Calc Pharmacy 70.0508; Globulin 2.9 g/dL (1.3-4.6); Glomerular Filtration Rate 99.1 mL/min (90-130); Glucose 233 mg/dL (65-115); Osmolality Calculated 288 mOsm/kg (285-295); Potassium 3.6 mmol/L (3.5-5.1); Sodium 136 mmol/L (136-145); Total Bilirubin 0.3 mg/dL (0.15-1.2); Total Protein 6.2 g/dL (6.6-8.7)
[2021-02-23 06:51] LABS: Glucose Point of Care 205 mg/dL (70-110)
[2021-02-23] MEDS: ondansetron 2 mg/ML SDV 2 mL 4 MG IVP ×2 (06:59→08:04)
--- NOTE | 2021-02-23 07:03 | ECG_ITS ---
[facility] Test Date: 2021-02-23 Pat Name: Yasmani Teixeira Department: Room: 104 Gender: Female Front Line Leader: : 1950 Requested By: Rey Denis Order Number: [id number] Ryder MD: Rey Denis M.D. Interpretive Statements NAME OF STUDY: LEXISCAN SESTAMIBI STRESS TEST INDICATION: Chest Pain, PROCEDURE: At the baseline, the EKG revealed sinus tachycardia with a heart rate of 118 bpm. Some nonspecific T wave changes in the high lateral leads. The baseline blood pressure was 105/68 mm Hg with a heart rate of 118 beats/min. Lexiscan was infused over a period of 20 seconds. A total of 0.4 milligrams of Lexiscan was infused. The stress phase was continued for a total of 5 minutes. Heart rate at the end of the stress phase was 125 with a blood pressure 78/51. The EKG at the peak infusion revealed no significant changes. Sestamibi was injected 20 seconds after the Lexiscan infusion. Patient was complaining of some shortness of breath, nausea and vomiting with the Lexiscan infusion. She responded to Zofran and IV Aminophyllin Blood pressure at the end of the recovery phase was 99/52 with a heart rate of 123 per minute. CONCLUSION: 1. No significant EKG changes with the LexiScan infusion 2. No LexiScan induced chest pain or cardiac arrhythmia 3. Normal blood pressure and heart rate response 4. Sestamibi/sestamibi perfusion scan pending; see separate report. Electronically Signed On 02-26-2021 8:29:58 CDT by Rey Denis M.D. [email or web address], Servicios para [id number]
[2021-02-23] MEDS: regadenoson 0.4 Mg/5 ml Syringe IVP (07:54)
--- NOTE | 2021-02-23 08:00 | PC.NURSE ---
Pt left floor via wheelchair for stress test. VS stable upon departure.
[2021-02-23] MEDS: aminophylline 25 mg/mL SDV 10 mL IVP (08:12)
--- NOTE | 2021-02-23 08:42 | P.PN_ITS ---
Subjective Subjective: Interval history: Patient underwent a myocardial perfusion imaging today. She was found to have a moderate area of ischemia in the distribution of the left circumflex artery. Currently she is pain-free Medications: Reviewed: Yes Medication Review Details: Current Medications Acetaminophen (Acetaminophen 325 Mg Tablet) 650 mg PO Q6H PRN PRN Reason: Mild/Mod Pain Or Temp >/= 101 Last Admin: 02/22/21 02:39 Dose: 650 mg Documented by: Hydrocodone Bitart/Acetaminophen (Hydrocodone-Acetaminophen 5-325 Mg Tablet) 1 tab PO Q4H PRN PRN Reason: MODERATE PAIN Last Admin: 02/23/21 04:26 Dose: 1 tab Documented by: Aminophylline (Aminophylline 25 Mg/Ml Sdv 10 Ml) 25 mg IVP Q2M PRN PRN Reason: see dose instructions Stop: 02/24/21 07:01 Last Admin: 02/23/21 08:12 Dose: 25 mg Documented by: Aspirin (Aspirin 81 Mg Ec Tablet) [facility] Last Admin: 02/23/21 05:09 Dose: 81 mg Documented by: Atorvastatin Calcium (Atorvastatin 40 Mg Tablet) 40 mg PO QAM [facility] Last Admin: 02/23/21 05:09 Dose: 40 mg Documented by: Baclofen (Baclofen 10 Mg Tablet) 10 mg PO BEDTIME [facility] Last Admin: 02/22/21 21:13 Dose: 10 mg Documented by: Bisacodyl (Bisacodyl 5 Mg Tablet) 10 mg PO DAILY PRN PRN Reason: CONSTIPATION Last Admin: 02/22/21 08:39 Dose: 10 mg Documented by: Clopidogrel Bisulfate (Clopidogrel 75 Mg Tablet) 75 mg PO QAM [facility] Last Admin: 02/23/21 05:09 Dose: 75 mg Documented by: Dextrose (Dextrose 50% Syringe 50 Ml) 25 ml IVP ONCE PRN; Protocol PRN Reason: hypoglycemia protocol Dextrose (Dextrose 50% Syringe 50 Ml) 50 ml IVP PRN PRN; Protocol PRN Reason: hypoglycemia protocol Enoxaparin Sodium (Enoxaparin 80 Mg/0.8 Ml Syringe) 80 mg SUBCUT Q12H [facility] Last Admin: 02/23/21 05:09 Dose: 80 mg Documented by: Famotidine (Famotidine 20 Mg Tablet) 20 mg PO BID [facility] Last Admin: 02/22/21 17:07 Dose: 20 mg Documented by: Glucagon (Glucagon 1 Mg/Ml Inj 1 Ml) 1 mg IM ONCE PRN; Protocol PRN Reason: Adult Acute Hypoglycemia Prot. Dextrose (D5w) 500 mls @ 100 mls/hr IV ONCE PRN; Protocol PRN Reason: Adult Acute Hypoglycemia Prot Insulin Aspart (Insulin Aspart 100 Unit/1 Ml) 0 unit SUBCUT WM&BEDTIME [facility]; Protocol Last Admin: 02/22/21 21:13 Dose: 6 unit Documented by: Isosorbide Mononitrate (Isosorbide Mononitrate Er 30 Mg Tablet) 30 mg PO [facility] Last Admin: 02/23/21 05:09 Dose: 30 mg Documented by: Levofloxacin (Levofloxacin 500 Mg Tablet) 500 mg PO DAILY@0600 [facility]; Protocol Last Admin: 02/23/21 05:09 Dose: 500 mg Documented by: Levothyroxine Sodium (Levothyroxine 175 Mcg Tablet) 175 mcg PO [facility] Last Admin: 02/23/21 05:09 Dose: 175 mcg Documented by: Lisinopril (Lisinopril 10 Mg Tablet) 10 mg PO [facility] Last Admin: 02/23/21 05:09 Dose: 10 mg Documented by: Metoprolol Tartrate (Metoprolol Tartrate 25 Mg Tablet) 25 mg PO BID@0900,2100 [facility] Last Admin: 02/22/21 21:12 Dose: 25 mg Documented by: Naloxone HCl (Naloxone 0.4 Mg/Ml Sdv) 0.1 mg IVP Q2M PRN PRN Reason: OPIATERV Nitroglycerin (Nitroglycerin 0.4 Mg Sublingual Tablet) 0.4 mg SUBLINGUAL Q5M PRN PRN Reason: CHEST PAIN Last Admin: 02/20/21 12:44 Dose: 1 tab Documented by: Nitroglycerin (Nitroglycerin 0.4 Mg Sublingual Tablet) 0.4 mg SUBLINGUAL Q5M PRN PRN Reason: CHEST PAIN Stop: 02/24/21 07:01 Ondansetron HCl (Ondansetron 2 Mg/Ml Sdv 2 Ml) 4 mg IVP Q8H PRN PRN Reason: vomiting, or N/V if npo Last Admin: 02/23/21 06:59 Dose: 4 mg Documented by: Ondansetron HCl (Ondansetron 2 Mg/Ml Sdv 2 Ml) 4 mg IVP Q2M PRN PRN Reason: NAUSEA Last Admin: 02/23/21 08:04 Dose: 4 mg Documented by: Tamsulosin HCl (Tamsulosin 0.4 Mg Capsule) 0.4 mg PO DAILY RANYD Last Admin: 02/22/21 08:26 Dose: 0.4 mg Documented by: Zolpidem Tartrate (Zolpidem 5 Mg Tablet) 10 mg PO BEDTIME PRN PRN Reason: SLEEP Last Admin: 02/22/21 21:12 Dose: 10 mg Documented by: Vitals/I&O/Wt Last Vital Signs Temp 98.0 F 02/23/21 07:12 Pulse 120 H 02/23/21 08:27 Resp 14 02/23/21 07:12 BP 99/52 02/23/21 08:27 Pulse Ox 95 02/23/21 07:12 02/22/21 02/23/21 02/23/21 22:59 06:59 14:59 Intake Total 440 / 1447.5 40 / 1487.5 Balance 440 / 1447.5 40 / 1487.5 Physical Exam Narrative: EXAM NARRATIVE: GENERAL: The patient is alert and oriented times three. Not in any acute distress. HEENT: No significant pallor, icterus or lymphadenopathy. NECK: Trachea appears to be central. No masses noted. No JVD or thyromegaly appreciated. No carotid bruit. RESPIRATORY: The sternotomy wound appears to have healed well .chest is symmetrical. No intercostals muscle retraction or any accessory muscle activation. Minimal chest wall tenderness. Breath sounds are heard bilaterally. No rales or rhonchi heard. No evidence of any consolidation. BREASTS: Deferred. HEART: The PMI could not be palpated. No palpable precordial events. S1 and S2 are normal. No S3 or S4 heard. No pericardial rub or any click heard. ABDOMEN: No vessel pulsations or distention. No tenderness. No organomegaly appreciated. No abdominal bruit. Bowel sounds are normally heard. : Deferred. RECTAL: Deferred. LYMPHATIC: No lymphadenopathy noted in the neck . EXTREMITIES: No edema or cyanosis. No clubbing. MUSCULOSKELETAL: No acute joint deformities or swelling SKIN: There are no significant scars or skin rash noted. NEUROPSYCHIATRIC: The patient is alert and oriented x3. Appears to be in a good mood. The higher functions are grossly within normal limits. No tremors or rigidity noted. Data : 02/23/21 05:40 02/23/21 05:40 Other Labs: Laboratory Last Values WBC 6.1 10^3/uL (4.0-10.0) 02/23/21 05:40 Corrected WBC Cancelled 02/23/21 03:16 RBC 4.16 10^6/uL (4.1-5.3) 02/23/21 05:40 Hgb 11.8 g/dL (11.5-15.3) 02/23/21 05:40 Hct 37.3 % (37.0-47.0) 02/23/21 05:40 MCV 89.7 fL (81-99) 02/23/21 05:40 MCH 28.4 pg (28.0-34.0) 02/23/21 05:40 MCHC 31.6 g/dL (30.0-36.0) 02/23/21 05:40 RDW 13.4 % (12.1-15.1) 02/23/21 05:40 Plt Count 277 10^3/cmm (130-400) 02/23/21 05:40 MPV 9.6 fL (7.4-10.4) 02/23/21 05:40 Gran % Cancelled 02/23/21 03:16 Neut % (Auto) 52.4 % 02/23/21 05:40 Lymph % (Auto) 33.7 % 02/23/21 05:40 [place] % (Auto) 9.5 % 02/23/21 05:40 Eos % (Auto) 3.3 % 02/23/21 05:40 Baso % (Auto) 0.8 % 02/23/21 05:40 Neut # (Auto) 3.21 10^3/uL (1.8-7.7) 02/23/21 05:40 Lymph # (Auto) 2.1 10^3/uL (0.8-4.8) 02/23/21 05:40 [place] # (Auto) 0.6 10^3/uL (0.2-0.9) 02/23/21 05:40 Eos # (Auto) 0.2 10^3/uL (0.0-0.8) 02/23/21 05:40 Baso # (Auto) 0.1 10^3/uL (0.0-0.1) 02/23/21 05:40 Absolute Gran (auto) Cancelled 02/23/21 03:16 Nucleated RBC % (auto) 0 % 02/23/21 05:40 Nucleated RBCs # 0.0 /100WBC 02/23/21 05:40 PT 13.10 SECONDS (12.1-14.9) 02/20/21 11:30 INR 0.96 (0.8-1.2) 02/20/21 11:30 D-Dimer 0.73 ug/mIFEU (0-0.59) H 02/20/21 11:30 Sodium 136 mmol/L (136-145) 02/23/21 05:40 Potassium 3.6 mmol/L (3.5-5.1) 02/23/21 05:40 Chloride 102 mmol/L (98-107) 02/23/21 05:40 Carbon Dioxide 25 mmol/L (22-29) 02/23/21 05:40 Anion Gap 12.6 (5-19) 02/23/21 05:40 BUN 8 mg/dL (8-23) 02/23/21 05:40 Creatinine 0.6 mg/dL (0.5-0.9) 02/23/21 05:40 GFR Calculation 99.1 mL/min (90-130) 02/23/21 05:40 Glucose 233 mg/dL (65-115) H 02/23/21 05:40 POC Glucose 205 mg/dL (70-110) H 02/23/21 06:43 Calculated Osmolality 288 mOsm/kg (285-295) 02/23/21 05:40 Lactate 1.3 mmol/L (0.5-2.2) 02/20/21 11:30 Calcium 9.0 mg/dL (8.5-10.5) 02/23/21 05:40 Magnesium 1.8 mg/dL (1.7-2.3) 02/21/21 04:20 Total Bilirubin 0.3 mg/dL (0.15-1.2) 02/23/21 05:40 AST 10 U/L (0-32) 02/23/21 05:40 ALT 9 U/L (0-33) 02/23/21 05:40 Alkaline Phosphatase 91 IU/L (35-105) 02/23/21 05:40 Troponin T Baseline 183 ng/L (0-10) H* 02/20/21 11:30 Troponin T 120 Minute 160.7 ng/L (0-10) H 02/20/21 13:40 Delta Troponin T -22.3 ABS# (0-10) L 02/20/21 13:40 Troponin T Hi Sens 6Hr 187.3 ng/L (0-10) H 02/20/21 18:40 Troponin T Hi Sens 6Hr Delta 4.3 ng/L (0-12) 02/20/21 18:40 NT-Pro-B Natriuret Pep 615 pg/mL (0-125) H 02/20/21 11:30 Total Protein 6.2 g/dL (6.6-8.7) L 02/23/21 05:40 Albumin 3.3 g/dL (3.5-5.2) L 02/23/21 05:40 Globulin 2.9 g/dL (1.3-4.6) 02/23/21 05:40 Lipase 19 U/L (13-60) 02/20/21 11:30 Urine Color [place] (Yellow) 02/20/21 13:09 Urine Appearance Clear (CLEAR) 02/20/21 13:09 Urine pH 5 (5-7) 02/20/21 13:09 Ur Specific [place] 1.020 (1.005-1.030) 02/20/21 13:09 Urine Protein 1+ (Negative) H 02/20/21 13:09 Urine Glucose (UA) 1+ (Normal) 02/20/21 13:09 Urine Ketones Negative (Negative) 02/20/21 13:09 Urine Blood Neg (Negative) 02/20/21 13:09 Urine Nitrate Positive (Negative) H 02/20/21 13:09 Urine Bilirubin 1+ (Negative) H 02/20/21 13:09 Urine Urobilinogen 4 mg/dL (Negative) H 02/20/21 13:09 Ur Leukocyte Esterase Negative (Negative) 02/20/21 13:09 Urine RBC None /hpf (0-2) 02/20/21 13:09 Urine WBC 0-4 /hpf (0-5) H 02/20/21 13:09 Ur Squamous Epith Cells 25-40 /hpf (0-5) H 02/20/21 13:09 Amorphous Sediment Not Reportable 02/20/21 13:09 Urine Bacteria Trace /hpf (NONE) 02/20/21 13:09 Hyaline Casts 5-10 /lpf H 02/20/21 13:09 Urine Mucus 2+ /hpf 02/20/21 13:09 Micro: Microbiology 02/21/21 20:20 Urine Culture - Preliminary Urine,Voided A&P Assessment and plan (1) Elevated troponin: The patient comes in with a non-ST elevation myocardial infarction. Most likely she had an ischemic given the distribution of the left circumflex artery. This needs to be further evaluated. Status: Acute (2) Atherosclerotic heart disease [place] coronary artery w/angina pectoris: Patient had a three-vessel coronary bypass surgery as mentioned above. I discussed with the patient about the implications of the abnormal myocardial perfusion imaging. In order to further evaluate the coronary status as well as the graft status, she requires a cardiac catheterization. The risk of bleeding, hematoma, vascular injury, myocardial infarction, CVA, renal failure and other concomitant complications were explained in detail. Patient understood this well and consented to proceed. We may go ahead and schedule the procedure today. Based on the results, further recommendations will be made Status: Acute Qualifiers: [place] vs. transplanted heart: [place] heart Qualified Code(s): I25.119 - Atherosclerotic heart disease of [place] coronary artery with unspecified angina pectoris (3) Benign essential HTN: The blood pressure seems to be getting under control. Continue to optimize the medications. Status: Acute (4) Dyslipidemia (high LDL; low HDL): Continue on the current management. Follow-up evaluation as scheduled. Status: Acute (5) Uncontrolled type 2 diabetes with neuropathy: Aggressive blood sugar control measures would be appropriate Status: Chronic (6) UTI (urinary tract infection): Patient is on IV antibiotics. Management as per the primary Status: Acute Qualifiers: Hematuria presence: without hematuria Urinary tract infection type: site unspecified Qualified Code(s): N39.0 - Urinary tract infection, site not specified Additional A&P Information We will go ahead and schedule the procedure today in the cardiac Retail Support Manager. Based on the angiogram findings, further recommendations will be made. The abnormal myocardial perfusion imaging results also discussed with Dr. Paz, who concurred with this plan Attestations Medical Necessity Statement*: Patient requires continued hospital stay for close monitoring and further management Coding Level of Care Code Acute Director Validation for Chg Fwd Diagnoses Elevated troponin R77.8 Atherosclerotic heart disease [place] coronary artery w/angina pectoris I25.119 [place] vs. transplanted heart: [place] heart Benign essential HTN I10 Dyslipidemia (high LDL; low HDL) E78.5 Uncontrolled type 2 diabetes with neuropathy E11.40; E11.65 UTI (urinary tract infection) N39.0 Hematuria presence: without hematuria Urinary tract infection type: site unspecified
--- NOTE | 2021-02-23 09:34 | PC.SOCIAL ---
IMM completed 02/23/21 @ 0981. Copy of rights given to pt.
--- NOTE | 2021-02-23 09:45 | PC.NURSE ---
Patient back to CSU from dialysis via wheelchair. Patient resting in bed, eating breakfast tray with no complaints at this time. Nurse will continue to monitor.
[2021-02-23] MEDS: famotidine 20 mg Tablet PO (09:50)
[2021-02-23] MEDS: metoprolol tartrate 25 mg Tablet PO ×2 (09:50→21:48)
[2021-02-23 11:31] LABS: Glucose Point of Care 269 mg/dL (70-110)
--- NOTE | 2021-02-23 13:44 | XACV_ITS ---
Exam Room: [facility] Ht: 165 cm Wt: 82 kg BSA: 1.96 m2 Gender: Female : 1950 Any Known Allergies: Codeine Exam Priority: Routine Procedure(s): Procedure Description: Diagnostic procedure Procedure Description: Left Heart Catheterization Procedure Description: Percutaneous coronary intervention Diagnostic Cath Status: Elective Diagnostic Findings * Coronary angiography shows right dominance. * The left main is a medium caliber vessel with distal tapering narrowing of around 30%. * The left circumflex artery appears to have a 98% diffuse narrowing proximally involving the ostium. The mid segment of the artery was found to have severe diffuse disease. Competitive flow was noted in the obtuse marginal graft. * The left anterior descending artery is a medium caliber vessel with a 30 to 40% diffuse narrowing in the proximal segment. The mid segment of the artery was found to have severe diffuse disease of 70 to 90%. Competitive flow was noted in the distal LAD. Competitive flow also was detected in the first diagonal branch of the artery. * The right coronary artery is a medium to large caliber vessel which was found to have around 50% ostial narrowing. The mid RCA was found to have around 30 to 40% diffuse narrowing. The PLV branch of the artery was found to have 40 to 60% diffuse irregular narrowing. The distal PLV gives of multiple branches. These branches were found to have moderate to severe diffuse disease. * The left internal mammary artery graft to the LAD was found to be widely patent. The distal LAD, distal to the anastomosis was found to be a relatively small caliber vessel. * The saphenous venous graft to the obtuse marginal artery was found to be widely patent. Just distal to the distal anastomosis, the [place] artery appears to be subtotally occluded. * The saphenous venous graft to the diagonal artery was found to be widely patent. Distal to the distal anastomosis, the diagonal artery was found to have 40 to 50% diffuse narrowing. PCI Status: Urgent PCI Indication: NSTE - ACS Interventional Findings * Procedure detail: We engaged SVG to OM with a 6 Fr LCB guide catheter. IV heparin was used to maintain an ACT above 250 seconds. A 0.014 run-through guidewire was used to cross the stenosis. We predilated the stenosis with 2.25 x 8 mm semicompliant balloon. This was followed by placement of 2.25 x 12 mm resolute Javid drug-eluting stent. At this time final angiogram was performed that showed excellent stent expansion, no residual stenosis and NANCY-3 flow. Guidewire and guide catheter were removed. Access sheath was sutured in place for removal later. Patient left the Deburring Technician in a stable condition. Conclusions 1. Patient has prior CABG. 2. This is a 70-year-old white female with a history of high blood pressure, diabetes, dyslipidemia and three-vessel coronary bypass surgery in November of this year when she presented with a non-ST relation myocardial infarction, now is presenting with a prolonged episode of chest pain and elevated troponin T. She had an abnormal myocardial perfusion imaging suggesting ischemia in the distribution of the left circumflex artery. For further evaluation of the coronary status as well as the graft status, a repeat cardiac catheterization was recommended. Patient underwent left heart catheterization with left and right coronary angiogram and graft angiogram today. The findings are as follows. 3. 30% tapering narrowing of the distal left main. Severe diffuse disease in the mid LAD and proximal to mid circumflex artery. Moderate to severe diffuse disease in the PLV branch of the right coronary artery. Patent VALLES to the LAD and the venous graft to the diagonal branch of the left anterior descending artery. . Patent saphenous graft to the obtuse marginal artery with a subtotal occlusion of the obtuse marginal artery just distal to the anastomosis. Based on the angiographic findings, it was thought to be appropriate to consider PCI of the obtuse marginal artery lesion distal to the anastomosis. I discussed and reviewed the cardiac catheterization data with the Dr. Griffith. Dr. Griffith concurred with this plan and took over further management of this patient at this point. 4. Successful revascularization of SVG to OM with LOPEZ x 1. Recommendations * Continue current medical management and risk factor modification. * Aspirin and plavix for atleast 1 year. * High intensity statin therapy. * Outpatient cardiology follow up. Interventional RX Recommendation: PCI w/o planned CABG Diagnostic RX Recommendation: PCI w/o planned CABG Anticoagulation: Heparin LV EDP: 10 mmHg Left Ventriculography Findings: * The LV gram was not performed because of the concern about the dye overload. The LVEDP was found to be 10 mmHg. Pressures Phase:Rest AO : 124 / 58 ( 84 ) @ 12:14:00 PM 124 / 58 ( 83 ) @ 12:14:00 PM LV : 113 / -1 / @ 12:14:00 PM 111 / -2 / @ 12:14:00 PM 117 / -14 / @ 12:14:00 PM Valves Phase:DefaultPhase AV : 0.0 @ 5:52:08 PM AV Mean Gradient: 0.0 @ 5:52:08 PM Clinical Evaluation EBL: 5mL-10mL Procedural Details Procedure Consent Obtained. Admit Source: In Patient. Pre-Procedure Time Out. Identified patient by full name and date of as verbalized by the patient/guarantor. Does the consent match the physician's order: Yes. Accurate & Complete Informed Consent: Yes. Inpatient/Outpatient History & Physical on Chart: Yes. If H&P is completed, is and addenduem needed: N/A; If yes, is the addendum complete: N/A. Visualize and Verify Site with Patient/Guarantor: N/A. Relevant Radiology Images available: N/A. Pre-op teaching completed and patient verbalized understanding. The risks, benefits, and alternatives of sedation and/or procedure were discussed by physician. The patient agrees to continue. Procedure started. Correct patient, site and procedure confirmed by cath team. PERRLA. Strong, equal hand cement gun operator bilaterally. Lungs clear x 5 lobes. IV Site on Arrival: 20 gauge in the right anticubital. Pre Procedural Pulses: bilateral dorsalis pedis was 3+. Pre Procedural Pulses: bilateral posterior tibial was 3+. Pre Procedural Pulses: bilateral radial was 3+. Oxygen started at 2liters/min via nasal canula. bilateral groins was prepped with chloroprep then draped in the usual sterile fashion. Baseline sample Acquired. HR: 93 BPM. Physician notified. Physician arrived. Physician scrubbed in. Immediate Pre-Procedure Time Out. Correct Patient: Yes; Correct Procedure: Yes; Correct Site: Yes; Correct Patient Position: Yes; Correct Supplies: Yes; Dried Flammable Prep: Yes; Blood Products Available: N/A;. Lidocaine 1% infiltrated to the right groin. Arterial access obtained with micropuncture set. A 5 chadian JL4 catheter in over wire. Multiple views taken of left coronary artery. Catheter out. A 5 chadian JR4 catheter in over wire. Multiple views taken of right coronary artery. VALLES to LAD visualized. Catheter out. A 5 chadian LCB catheter in over wire. SVG's to Diaganol visualized and patent. SVG's to OM visualized and patent. Catheter out. Dr. Griffith notified. Dr. Griffith here to look through pictures. A 5 chadian Angled Pig catheter in over wire. EDP Sample taken: LV 113/-2,13; HR: 104 BPM; SpO2: 100%. Pullback taken: LV 117/-15,5; AO 124/58(84); Mean: 0mmHg, Peak to Peak: 0mmHg, SEP: 23sec/min; HR: 104 BPM; SpO2: 100%. Catheter out. Dr. Denis to update family. Dr. Griffith scrubbed in to perform intervention. [facility] Clinical Fraility Score: 3: Managing Well. Deburring Technician Indications: ACS > 24 hours. Chest Pain Symptom Assessment: Typical Angina Symptoms. Cardiovascular Instability: No,. Sheath upsized to a 6 Fr. 6 chadian LCB guide catheter was inserted over the wire. Runthrough guidewire was advanced through the guide catheter. Inflation number : 1 A AB TREK 2.25X8 RX BALLOON was prepped and advanced across the Aorta Left -> 1st Ob Tali , then inflated to 8 ARTHUR for 0:16 seconds. Inflation number: 2 The AB TREK 2.25X8 RX BALLOON was reinflated across the Aorta Left -> 1st Ob Tali, to 12 ARTHUR for 0:19 seconds. Balloon out. Inflation Number : 3 A JAMILA Jenkins JAVID 2.25X12 LOPEZ -Lot Number#[id number] exp date: 10-01-2022 was prepped and advanced across the Aorta Left -> 1st Ob Tali. The stent was deployed at 12 ARTHUR for 0:28 seconds. Stent balloon out over wire. Wire out. checking results. Guide catheter out. handinjection performed throught the sheath. ACT drawn. Results 384 seconds. Therapeutic limits - pre-heparin administration 90-150 seconds and monitoring heparin during a vascular procedure >250 seconds. Sheath(s) sutured into position with 2-0 silk and sterile 4x4's and Op-site applied over the site. No oozing or signs and symptoms of hematoma noted. Post Procedure: Pulses reassessed and unchanged. PERRLA. Strong, equal hand cement gun operator bilaterally. No VTE prophylaxis required. Medication's Wasted: Nitro = 49.8 mg. Medication's Wasted: Other = fentanyl 50 mg. Total IV fluids: 100 mL. Contrast type used: Omnipaque 300 mgI/mL, 500 mL bottle. Contrast Material : Omnipaque 244 ml. Complications: none. Estimated blood loss: 5mL-10mL. Procedure completed. Patient transferred by bed to 1st floor. A Suture was successful obtaining hemostatsis at the Right Femoral artery insertion site. Post-op diagnosis: severe SGV to OM stenosis. SP PCI. PCI Indication: NSTE. Vital chart was stopped. Access Site Site: Right Femoral artery Sheath Size: 5 Fr Hemostasis Method: Suture Hemostasis Success: Successful Procedure Medications Start: 4:42 PM Stop: 4:42 PM Medication: Versed Amount: 1 mg Route: I.V. Start: 4:42 PM Stop: 4:42 PM Medication: Fentanyl Amount: 50 mcg Route: I.V. Start: 4:43 PM Stop: 4:43 PM Medication: Benadryl Amount: 50 mg Route: I.V. Start: 4:45 PM Stop: 4:45 PM Medication: Versed Amount: 1 mg Route: I.V. Start: 4:49 PM Stop: 4:49 PM Medication: Versed Amount: 1 mg Route: I.V. Start: 4:50 PM Stop: 4:50 PM Medication: Fentanyl Amount: 50 mcg Route: I.V. Start: 4:52 PM Stop: 4:52 PM Medication: Versed Amount: 1 mg Route: I.V. Start: 5:02 PM Stop: 5:02 PM Medication: Versed Amount: 1 mg Route: I.V. Start: 5:03 PM Stop: 5:03 PM Medication: Versed Amount: 1 mg Route: I.V. Start: 5:04 PM Stop: 5:04 PM Medication: Fentanyl Amount: 25 mcg Route: I.V. Start: 5:15 PM Stop: 5:15 PM Medication: Versed Amount: 1 mg Route: I.V. Start: 5:25 PM Stop: 5:25 PM Medication: Heparin Amount: 8000 units Route: I.V. Start: 5:26 PM Stop: 5:26 PM Medication: Versed Amount: 1 mg Route: I.V. Start: 5:28 PM Stop: 5:28 PM Medication: Fentanyl Amount: 25 mcg Route: I.V. Start: 5:35 PM Stop: 5:35 PM Medication: Nitrogylcerin Amount: 200 mcg Route: I.C. Start: 5:32 PM Stop: 5:32 PM Medication: Heparin Amount: 1500 units Route: I.V. I, the attending physician, have reviewed and verified all procedure medications. Yes, all medications given per verbal order History/Risk Factors Myocardial Infarction ([place]): Yes Prior Interventions CABG: Yes Report Signatures Interventional Workflow Finalized by Edmar Griffith MD on 03/08/2021 11:27 PM Diagnostic Workflow Finalized by Dr Rey Denis MD [facility] on 02/24/2021 12:53 AM
--- NOTE | 2021-02-23 14:51 | PC.CHAP ---
Pastoral Care Encounter/Spiritual Assessment Type of Contact [] Declined loading checker visit [] Patient/Family/Request visit [] Outpatient visit [x] Follow-up visit [] Physician referral [] Code/Alert [] Routine visit [] Staff referral [] Actively dying [] Patient sleeping [] Family support [] [] Out of room [] Palliative care [] [] Receiving care in room [] Pre-surgical visit [] Trauma [] Long length of stay [] ICU visit [] Other: Relational/Emotional Strength [] Patient feels connected with others/family/visitors/staff [] Distress [] Loneliness/isolation [] Abandonment Spirituality of Patient [] Person of Vilma [] Attends Episcopal of their Vilma [] Believes in Prayer [] Reads Bible or Hoahaoism materials [] There are Spiritual issues to be addressed Housekeeping Director Interventions [] Prayer [] Active listening [] Non-anxious presence [] Spiritual/emotional support [] Crisis/trauma care [] Spiritual counseling [] Bereavement support [] Provided bereavement packet [] Provided Bible/devotional materials [] Provided toy/stuffed animal, coloring book to patient or family member [] Provided Communion [] Anointing/[place] [] Salvation [] Completed spiritual assessment [] Other: Impact on Illness or Injury [] Angry [] Fearful [] Anxious [] Often cries [] Exhaustion [] Unable to work [] Unable to attend catholic [] Unable to walk/stand [] Unable to read [] Unable to drive [] Unable to eat/drink [] Unable to sleep [] Unable to be with family [] Patient intubated [] Other: Summary Time spent with patient
[2021-02-23] MEDS: sodium chloride 0.9% 1,000 ML 50 ML IV (16:09)
--- NOTE | 2021-02-23 16:30 | PC.NURSE ---
Received patient from the optical laboratory technician via bed. Patient has a sheath intact in right femoral artery, connected to pressure bag. Patient dressing is intact with no sign of drainage. No hematoma present at this time. Vital signs Q15min. Patient has no complaints at this time.
--- NOTE | 2021-02-23 16:33 | W.PM.OPSUD ---
Surgery/Procedure H&P Update DATE OF PROCEDURE: February 23, 2021 DATE H&P PERFORMED: 02/21/21 H&P UPDATE INFORMATION: I have reviewed H&P completed within last 30 days, I have examined patient prior to procedure and No changes to prior documentation PREOP DIAGNOSIS: Non-STEMI/unstable angina, Abnormal MPI PLANNED PROCEDURE: Operation Date: 02/23/21 16:30 Proposed Procedures p Left Cardiac Catheterization(Left) - Rey Denis MD PATIENT REASSESSED PRIOR TO SEDATION, WITH NO CHANGE NOTED: Yes PHYSICAL EXAM: alert, oriented x 3, clear to auscultation bilaterally and regular rate & rhythm AIRWAY EVAL/ANESTHESIA PLAN: normal airway, see other exam findings, ASA II, Local Anesthesia, Risks, benefits & alternatives of sedation and/or procedure discussed and Patient agrees to continue as planned
[2021-02-23 21:31] LABS: Partial Thromboplastin Time > 250.0 SECONDS (23.9-36.7)
[2021-02-23] MEDS: baclofen 10 mg Tablet PO (21:47)
[2021-02-23] MEDS: temazepam 15 mg Capsule PO (21:52)
[2021-02-23 22:20] LABS: Glucose Point of Care 199 mg/dL (70-110)
[2021-02-23 23:00] LABS: Partial Thromboplastin Time 61.3 SECONDS (23.9-36.7)
[2021-02-23] MEDS: ALPRAZolam 0.25 mg Tablet PO (23:37)
[2021-02-24] VITALS (18 sets, daily range): BP systolic 107–150; BP diastolic 59–91; PULSE 77–108; RESP 9–23; TEMP 36.6–36.8; O2SAT 90–95
[2021-02-24 00:49] LABS: Partial Thromboplastin Time 34.4 SECONDS (23.9-36.7)
[2021-02-24] MEDS: fentaNYL 50 mcg/mL INJ 2mL IVP (01:09)
--- NOTE | 2021-02-24 01:42 | PC.NURSE ---
Sheath removed and intact at 0122. No clot noted. Pressure held with no hematoma noted. 4x4 and large tegaderm applied. No complications with sheath removal noted.
--- NOTE | 2021-02-24 05:01 | PC.NURSE ---
Spoke with Dr. De La Cruz about this patient's iv fluids. Order received to DC fluids.
[2021-02-24] MEDS: isosorbide mononitrate ER 30 mg Tablet PO (05:46)
[2021-02-24] MEDS: lisinopril 10 mg Tablet PO (05:46)
[2021-02-24] MEDS: aspirin 81 mg EC Tablet PO (05:46)
[2021-02-24] MEDS: HYDROcodone-acetaminophen 5-325 mg Tablet 1 TAB PO (05:46)
[2021-02-24] MEDS: atorvastatin 40 mg Tablet PO (05:46)
[2021-02-24] MEDS: levothyroxine 175 mcg Tablet PO (05:46)
[2021-02-24] MEDS: clopidogrel 75 mg Tablet PO (05:46)
[2021-02-24] MEDS: levoFLOXacin 500 mg Tablet PO (05:46)
[2021-02-24 07:20] LABS: Glucose Point of Care 166 mg/dL (70-110)
--- NOTE | 2021-02-24 08:11 | PC.NURSE ---
Pt presents lying in bed resting with eyes open talking to staff. Resp even and non labored no distress noted. Pt had no c/o pain or discomfort at the present time. Garcia removed. Pt tolerated well. Pt now sitting up in chair eating breakfast. Call light in reach. No needs voiced. Will cont to monitor.
--- NOTE | 2021-02-24 08:12 | PM.PN ---
Subjective Subjective: Interval history: Patient underwent a myocardial perfusion imaging today. She was found to have a moderate area of ischemia in the distribution of the left circumflex artery. Currently she is pain-free Medications: Reviewed: Yes Medication Review Details: Current Medications Acetaminophen (Acetaminophen 325 Mg Tablet) 650 mg PO Q6H PRN PRN Reason: Mild/Mod Pain Or Temp >/= 101 Last Admin: 02/22/21 02:39 Dose: 650 mg Documented by: Hydrocodone Bitart/Acetaminophen (Hydrocodone-Acetaminophen 5-325 Mg Tablet) 1 tab PO Q4H PRN PRN Reason: MODERATE PAIN Last Admin: 02/23/21 04:26 Dose: 1 tab Documented by: Aminophylline (Aminophylline 25 Mg/Ml Sdv 10 Ml) 25 mg IVP Q2M PRN PRN Reason: see dose instructions Stop: 02/24/21 07:01 Last Admin: 02/23/21 08:12 Dose: 25 mg Documented by: Aspirin (Aspirin 81 Mg Ec Tablet) [facility] [place] Last Admin: 02/23/21 05:09 Dose: 81 mg Documented by: Atorvastatin Calcium (Atorvastatin 40 Mg Tablet) 40 mg PO QAM [facility] Last Admin: 02/23/21 05:09 Dose: 40 mg Documented by: Baclofen (Baclofen 10 Mg Tablet) 10 mg PO BEDTIME [facility] Last Admin: 02/22/21 21:13 Dose: 10 mg Documented by: Bisacodyl (Bisacodyl 5 Mg Tablet) 10 mg PO DAILY PRN PRN Reason: CONSTIPATION Last Admin: 02/22/21 08:39 Dose: 10 mg Documented by: Clopidogrel Bisulfate (Clopidogrel 75 Mg Tablet) 75 mg PO QAM [facility] Last Admin: 02/23/21 05:09 Dose: 75 mg Documented by: Dextrose (Dextrose 50% Syringe 50 Ml) 25 ml IVP ONCE PRN; Protocol PRN Reason: hypoglycemia protocol Dextrose (Dextrose 50% Syringe 50 Ml) 50 ml IVP PRN PRN; Protocol PRN Reason: hypoglycemia protocol Enoxaparin Sodium (Enoxaparin 80 Mg/0.8 Ml Syringe) 80 mg SUBCUT Q12H [facility] Last Admin: 02/23/21 05:09 Dose: 80 mg Documented by: Famotidine (Famotidine 20 Mg Tablet) 20 mg PO BID [facility] Last Admin: 02/22/21 17:07 Dose: 20 mg Documented by: Glucagon (Glucagon 1 Mg/Ml Inj 1 Ml) 1 mg IM ONCE PRN; Protocol PRN Reason: Adult Acute Hypoglycemia Prot. Dextrose (D5w) 500 mls @ 100 mls/hr IV ONCE PRN; Protocol PRN Reason: Adult Acute Hypoglycemia Prot Insulin Aspart (Insulin Aspart 100 Unit/1 Ml) 0 unit SUBCUT WM&BEDTIME [facility]; Protocol Last Admin: 02/22/21 21:13 Dose: 6 unit Documented by: Isosorbide Mononitrate (Isosorbide Mononitrate Er 30 Mg Tablet) 30 mg PO [facility] Last Admin: 02/23/21 05:09 Dose: 30 mg Documented by: Levofloxacin (Levofloxacin 500 Mg Tablet) 500 mg PO DAILY@0600 [facility]; Protocol Last Admin: 02/23/21 05:09 Dose: 500 mg Documented by: Levothyroxine Sodium (Levothyroxine 175 Mcg Tablet) 175 mcg PO [facility] Last Admin: 02/23/21 05:09 Dose: 175 mcg Documented by: Lisinopril (Lisinopril 10 Mg Tablet) 10 mg PO [facility] Last Admin: 02/23/21 05:09 Dose: 10 mg Documented by: Metoprolol Tartrate (Metoprolol Tartrate 25 Mg Tablet) 25 mg PO BID@0900,2100 [facility] Last Admin: 02/22/21 21:12 Dose: 25 mg Documented by: Naloxone HCl (Naloxone 0.4 Mg/Ml Sdv) 0.1 mg IVP Q2M PRN PRN Reason: OPIATERV Nitroglycerin (Nitroglycerin 0.4 Mg Sublingual Tablet) 0.4 mg SUBLINGUAL Q5M PRN PRN Reason: CHEST PAIN Last Admin: 02/20/21 12:44 Dose: 1 tab Documented by: Nitroglycerin (Nitroglycerin 0.4 Mg Sublingual Tablet) 0.4 mg SUBLINGUAL Q5M PRN PRN Reason: CHEST PAIN Stop: 02/24/21 07:01 Ondansetron HCl (Ondansetron 2 Mg/Ml Sdv 2 Ml) 4 mg IVP Q8H PRN PRN Reason: vomiting, or N/V if npo Last Admin: 02/23/21 06:59 Dose: 4 mg Documented by: Ondansetron HCl (Ondansetron 2 Mg/Ml Sdv 2 Ml) 4 mg IVP Q2M PRN PRN Reason: NAUSEA Last Admin: 02/23/21 08:04 Dose: 4 mg Documented by: Tamsulosin HCl (Tamsulosin 0.4 Mg Capsule) 0.4 mg PO DAILY [facility] Last Admin: 02/22/21 08:26 Dose: 0.4 mg Documented by: Zolpidem Tartrate (Zolpidem 5 Mg Tablet) 10 mg PO BEDTIME PRN PRN Reason: SLEEP Last Admin: 02/22/21 21:12 Dose: 10 mg Documented by: Vitals/I&O/Wt Last Vital Signs Temp 98.3 F 02/24/21 07:15 Pulse 108 H 02/24/21 07:15 Resp 23 H 02/24/21 07:15 BP 130/89 02/24/21 07:15 Pulse Ox 94 02/24/21 07:15 02/23/21 02/24/21 02/24/21 22:59 06:59 14:59 Intake Total 220 / 460 240 / 700 Output Total 1999 / 1999 1000 / 1000 Balance 220 / 460 -1760 / -1300 -1000 / -1000 Physical Exam Const: COMMON NORMALS: patient oriented x3 HENMT: COMMON NORMALS: normocephalic and atraumatic HEAD & SCALP: normocephalic and atraumatic Chest: CHEST: Yes Symmetrical chest wall rise Resp: COMMON NORMALS: clear to auscultation bilaterally EFFORT & INSPECTION: Yes symmetric chest movement AUSCULTATION: clear to auscultation bilaterally Cardio: COMMON NORMALS: regular rate, regular rhythm, S1 normal heart sound present, S2 normal heart sound present, No gallops present (Cardio), No murmurs present (Cardio), No rub (Cardio) and Peripheral pulses 2+ throughout RATE: regular rate RHYTHM: regular rhythm HEART SOUNDS: S1 normal heart sound present and S2 normal heart sound present PERIPHERAL PULSES: Peripheral pulses 2+ throughout GI: COMMON NORMALS: Normal to inspection, nondistended, normoactive bowel sounds present, Soft to palpation, non-tender, No hepatosplenomegaly present and no masses AUSCULTATION: Yes normoactive bowel sounds PALPATION: Yes Soft to palpation and Yes No hepatosplenomegaly present RECTAL EXAM: deferred Extremity: COMMON NORMALS: no clubbing, cyanosis or edema and no pedal edema Neuro: COMMON NORMALS: patient oriented x3 Urinary Catheter Management^: Garcia: Cath Placed During This Visit: yes Urinary Catheter Date of Insertion: 02/23/21 Urinary Catheter Time of Insertion: 20:57 Data : 02/23/21 05:40 02/23/21 05:40 Micro: Microbiology 02/21/21 20:20 Urine Culture - Final Urine,Voided A&P Assessment and plan (1) Non-ST elevated myocardial infarction (non-STEMI): NSTEMI 2D Echo :Normal LV size and ejection fraction of around 61%. Mild diffuse hypokinesia of the septum and anteroseptal segments. Normal cardiac chamber sizes. No significant morphology abnormalities in the valves. No Intracardiac masses No pericardial effusion. Serial EKG: Has failed to show any acute myocardial insult Trend Troponin: Troponin T baseline: 183, 2h: 160, 2-hour delta: -22, troponin T 6 hours: 187, 6h D: 4.3 Myocardial perfusion . moderate area of ischemia in the distribution of the left circumflex artery. Due for cardiac Cath today Aspirin 81 mg po daily Plavix 75 mg po daily Lipitor 40 mg po daily MT 25 MG PO BID Lisinopril 10 mg po daily Lovenox 80 mg q12 h daily IMDUR 30 MG PO DAILY 0.4 MG SL Nitro PRN Appreciate cardiology Rec Status: Acute (2) UTI (urinary tract infection): Initially on Ceftriaxone 1 g every 24 hours daily. Changed to Levofloxacin 500 mg po daily Follow urine culture Status: Acute Qualifiers: Urinary tract infection type: site unspecified Hematuria presence: without hematuria Qualified Code(s): N39.0 - Urinary tract infection, site not specified (3) Benign essential HTN: Status: Acute (4) Status post aorto-coronary artery bypass graft: Status: Acute (5) Dyslipidemia (high LDL; low HDL): Status: Acute (6) Fibromyalgia: Hydrocodone was not working for her. Currently switched to Dilaudid 2 mg p.o. every 6h Status: Acute (7) Uncontrolled type 2 diabetes with neuropathy: Status: Chronic (8) Hypothyroid: Levothyroxine 175 mcg po daily Status: Acute Qualifiers: Hypothyroidism type: acquired Qualified Code(s): E03.9 - Hypothyroidism, unspecified (9) Migraine: On [place]. Avoid Trigger Status: Acute Attestations Medical Necessity Statement*: Patient needs to be in hospital for the management of NSTEMI Coding Level of Care Code Acute Lens Polisher for Chg Fwd Diagnoses Non-ST elevated myocardial infarction (non-STEMI) I21.4 UTI (urinary tract infection) N39.0 Urinary tract infection type: site unspecified Hematuria presence: without hematuria Benign essential HTN I10 Status post aorto-coronary artery bypass graft Z95.1 Dyslipidemia (high LDL; low HDL) E78.5 Fibromyalgia M79.7 Uncontrolled type 2 diabetes with neuropathy E11.40; E11.65 Hypothyroid E03.9 Hypothyroidism type: acquired Migraine G43.909
--- NOTE | 2021-02-24 08:51 | PM.PN ---
Subjective Subjective: Interval history: Patient is feeling okay. No chest pain or chest tightness. No new symptoms. No hematoma or bleeding from the right groin. Medications: Reviewed: Yes Medication Review Details: Current Medications Acetaminophen (Acetaminophen 325 Mg Tablet) 650 mg PO Q6H PRN PRN Reason: MILD PAIN Hydrocodone Bitart/Acetaminophen (Hydrocodone-Acetaminophen 5-325 Mg Tablet) 1 tab PO Q4H PRN PRN Reason: MODERATE PAIN Last Admin: 02/24/21 05:46 Dose: 1 tab Documented by: Al Hydrox/Mg Hydrox/Simethicone (Cixu-Mpp-Eqsrzdvgr-Sigrid 30 Ml Udc) 30 ml PO Q15M PRN PRN Reason: INDIGESTION Alprazolam (Alprazolam 0.25 Mg Tablet) 0.25 mg PO TID PRN PRN Reason: ANXIETY Last Admin: 02/23/21 23:37 Dose: 0.25 mg Documented by: Aspirin (Aspirin 81 Mg Ec Tablet) 81 mg PO [facility] Last Admin: 02/24/21 05:46 Dose: 81 mg Documented by: Atorvastatin Calcium (Atorvastatin 40 Mg Tablet) 40 mg PO [facility] Last Admin: 02/24/21 05:46 Dose: 40 mg Documented by: Atropine Sulfate (Atropine 1 Mg/Ml Sdv 1 Ml) 0.5 mg IVP PRN PRN PRN Reason: Symptomatic bradycardia Baclofen (Baclofen 10 Mg Tablet) 10 mg PO BEDTIME [facility] Last Admin: 02/23/21 21:47 Dose: 10 mg Documented by: Bisacodyl (Bisacodyl 5 Mg Tablet) 10 mg PO DAILY PRN PRN Reason: CONSTIPATION Last Admin: 02/22/21 08:39 Dose: 10 mg Documented by: Clopidogrel Bisulfate (Clopidogrel 75 Mg Tablet) 75 mg PO [facility] Last Admin: 02/24/21 05:46 Dose: 75 mg Documented by: Dextrose (Dextrose 50% Syringe 50 Ml) 25 ml IVP ONCE PRN; Protocol PRN Reason: hypoglycemia protocol Dextrose (Dextrose 50% Syringe 50 Ml) 50 ml IVP PRN PRN; Protocol PRN Reason: hypoglycemia protocol Famotidine (Famotidine 20 Mg Tablet) 20 mg PO BID [facility] Last Admin: 02/23/21 09:50 Dose: 20 mg Documented by: Fentanyl (Fentanyl 50 Mcg/Ml Inj 2ml) 50 mcg IVP PRN PRN PRN Reason: PAIN Last Admin: 02/24/21 01:09 Dose: 50 mcg Documented by: Glucagon (Glucagon 1 Mg/Ml Inj 1 Ml) 1 mg IM ONCE PRN; Protocol PRN Reason: Adult Acute Hypoglycemia Prot. Dextrose (D5w) 500 mls @ 100 mls/hr IV ONCE PRN; Protocol PRN Reason: Adult Acute Hypoglycemia Prot Sodium Chloride (Sodium Chloride 0.9%) 1,000 mls @ 50 mls/hr IV .Q20H ONE Stop: 02/25/21 00:59 Last Admin: 02/23/21 16:09 Dose: 50 mls/hr Documented by: Insulin Aspart (Insulin Aspart 100 Unit/1 Ml) 0 unit SUBCUT WM&BEDTIME [facility]; Protocol Last Admin: 02/23/21 21:47 Dose: 4 unit Documented by: Isosorbide Mononitrate (Isosorbide Mononitrate Er 30 Mg Tablet) 30 mg PO [facility] Last Admin: 02/24/21 05:46 Dose: 30 mg Documented by: Levofloxacin (Levofloxacin 500 Mg Tablet) 500 mg PO DAILY@0600 [facility]; Protocol Last Admin: 02/24/21 05:46 Dose: 500 mg Documented by: Levothyroxine Sodium (Levothyroxine 175 Mcg Tablet) 175 mcg PO [facility] Last Admin: 02/24/21 05:46 Dose: 175 mcg Documented by: Lisinopril (Lisinopril 10 Mg Tablet) 10 mg PO [facility] Last Admin: 02/24/21 05:46 Dose: 10 mg Documented by: Magnesium Hydroxide (Magnesium Hydroxide 30 Ml Udc) 30 ml PO DAILY PRN PRN Reason: CONSTIPATION Metoprolol Tartrate (Metoprolol Tartrate 25 Mg Tablet) 25 mg PO BID@0900,2100 [facility] Last Admin: 02/23/21 21:48 Dose: 25 mg Documented by: Naloxone HCl (Naloxone 0.4 Mg/Ml Sdv) 0.1 mg IVP Q2M PRN PRN Reason: RESPIRATORY RATE < 8/MIN Nitroglycerin (Nitroglycerin 0.4 Mg Sublingual Tablet) 0.4 mg SUBLINGUAL Q5M PRN PRN Reason: CHEST PAIN Ondansetron HCl (Ondansetron 2 Mg/Ml Sdv 2 Ml) 4 mg IVP Q8H PRN PRN Reason: vomiting, or N/V if npo Last Admin: 02/23/21 06:59 Dose: 4 mg Documented by: Tamsulosin HCl (Tamsulosin 0.4 Mg Capsule) 0.4 mg PO DAILY [facility] Last Admin: 02/23/21 09:51 Dose: Not Given Documented by: Temazepam (Temazepam 15 Mg Capsule) 15 mg PO BEDTIME PRN PRN Reason: INSOMNIA Last Admin: 02/23/21 21:52 Dose: 15 mg Documented by: Vitals/I&O/Wt Last Vital Signs Temp 98.3 F 02/24/21 07:15 Pulse 108 H 02/24/21 07:15 Resp 23 H 02/24/21 07:15 BP 130/89 02/24/21 07:15 Pulse Ox 94 02/24/21 07:15 02/23/21 02/24/21 02/24/21 22:59 06:59 14:59 Intake Total 220 / 460 240 / 700 240 / 240 Output Total 1999 / 1999 1000 / 1000 Balance 220 / 460 -1760 / -1300 -760 / -760 Physical Exam Narrative: EXAM NARRATIVE: GENERAL: The patient is alert and oriented times three. Not in any acute distress. HEENT: No significant pallor, icterus or lymphadenopathy. NECK: Trachea appears to be central. No masses noted. No JVD or thyromegaly appreciated. No carotid bruit. RESPIRATORY: The sternotomy wound appears to have healed well .chest is symmetrical. No intercostals muscle retraction or any accessory muscle activation. Minimal chest wall tenderness. Breath sounds are heard bilaterally. No rales or rhonchi heard. No evidence of any consolidation. BREASTS: Deferred. HEART: The PMI could not be palpated. No palpable precordial events. S1 and S2 are normal. No S3 or S4 heard. No pericardial rub or any click heard. ABDOMEN: No vessel pulsations or distention. No tenderness. No organomegaly appreciated. No abdominal bruit. Bowel sounds are normally heard. : Deferred. RECTAL: Deferred. LYMPHATIC: No lymphadenopathy noted in the neck . EXTREMITIES: No edema or cyanosis. No clubbing. No hematoma bleeding from the right groin MUSCULOSKELETAL: No acute joint deformities or swelling SKIN: There are no significant scars or skin rash noted. NEUROPSYCHIATRIC: The patient is alert and oriented x3. Appears to be in a good mood. The higher functions are grossly within normal limits. No tremors or rigidity noted. Const: COMMON NORMALS: alert Resp: COMMON NORMALS: clear to auscultation bilaterally AUSCULTATION: clear to auscultation bilaterally Neuro: SENSORIUM/ORIENTATION: Yes alert Urinary Catheter Management^: Garcia: Cath Placed During This Visit: yes Urinary Catheter Date of Insertion: 02/23/21 Urinary Catheter Time of Insertion: 20:57 Data : 02/23/21 05:40 02/23/21 05:40 Other Labs: Laboratory Last Values WBC 6.1 10^3/uL (4.0-10.0) 02/23/21 05:40 Corrected WBC Cancelled 02/23/21 03:16 RBC 4.16 10^6/uL (4.1-5.3) 02/23/21 05:40 Hgb 11.8 g/dL (11.5-15.3) 02/23/21 05:40 Hct 37.3 % (37.0-47.0) 02/23/21 05:40 MCV 89.7 fL (81-99) 02/23/21 05:40 MCH 28.4 pg (28.0-34.0) 02/23/21 05:40 MCHC 31.6 g/dL (30.0-36.0) 02/23/21 05:40 RDW 13.4 % (12.1-15.1) 02/23/21 05:40 Plt Count 277 10^3/cmm (130-400) 02/23/21 05:40 MPV 9.6 fL (7.4-10.4) 02/23/21 05:40 Gran % Cancelled 02/23/21 03:16 Neut % (Auto) 52.4 % 02/23/21 05:40 Lymph % (Auto) 33.7 % 02/23/21 05:40 [place] % (Auto) 9.5 % 02/23/21 05:40 Eos % (Auto) 3.3 % 02/23/21 05:40 Baso % (Auto) 0.8 % 02/23/21 05:40 Neut # (Auto) 3.21 10^3/uL (1.8-7.7) 02/23/21 05:40 Lymph # (Auto) 2.1 10^3/uL (0.8-4.8) 02/23/21 05:40 [place] # (Auto) 0.6 10^3/uL (0.2-0.9) 02/23/21 05:40 Eos # (Auto) 0.2 10^3/uL (0.0-0.8) 02/23/21 05:40 Baso # (Auto) 0.1 10^3/uL (0.0-0.1) 02/23/21 05:40 Absolute Gran (auto) Cancelled 02/23/21 03:16 Nucleated RBC % (auto) 0 % 02/23/21 05:40 Nucleated RBCs # 0.0 /100WBC 02/23/21 05:40 PT 13.10 SECONDS (12.1-14.9) 02/20/21 11:30 INR 0.96 (0.8-1.2) 02/20/21 11:30 APTT 34.4 SECONDS (23.9-36.7) 02/24/21 00:29 D-Dimer 0.73 ug/mIFEU (0-0.59) H 02/20/21 11:30 Sodium 136 mmol/L (136-145) 02/23/21 05:40 Potassium 3.6 mmol/L (3.5-5.1) 02/23/21 05:40 Chloride 102 mmol/L (98-107) 02/23/21 05:40 Carbon Dioxide 25 mmol/L (22-29) 02/23/21 05:40 Anion Gap 12.6 (5-19) 02/23/21 05:40 BUN 8 mg/dL (8-23) 02/23/21 05:40 Creatinine 0.6 mg/dL (0.5-0.9) 02/23/21 05:40 GFR Calculation 99.1 mL/min (90-130) 02/23/21 05:40 Glucose 233 mg/dL (65-115) H 02/23/21 05:40 POC Glucose 166 mg/dL (70-110) H 02/24/21 06:44 Calculated Osmolality 288 mOsm/kg (285-295) 02/23/21 05:40 Lactate 1.3 mmol/L (0.5-2.2) 02/20/21 11:30 Calcium 9.0 mg/dL (8.5-10.5) 02/23/21 05:40 Magnesium 1.8 mg/dL (1.7-2.3) 02/21/21 04:20 Total Bilirubin 0.3 mg/dL (0.15-1.2) 02/23/21 05:40 AST 10 U/L (0-32) 02/23/21 05:40 ALT 9 U/L (0-33) 02/23/21 05:40 Alkaline Phosphatase 91 IU/L (35-105) 02/23/21 05:40 Troponin T Baseline 183 ng/L (0-10) H* 02/20/21 11:30 Troponin T 120 Minute 160.7 ng/L (0-10) H 02/20/21 13:40 Delta Troponin T -22.3 ABS# (0-10) L 02/20/21 13:40 Troponin T Hi Sens 6Hr 187.3 ng/L (0-10) H 02/20/21 18:40 Troponin T Hi Sens 6Hr Delta 4.3 ng/L (0-12) 02/20/21 18:40 NT-Pro-B Natriuret Pep 615 pg/mL (0-125) H 02/20/21 11:30 Total Protein 6.2 g/dL (6.6-8.7) L 02/23/21 05:40 Albumin 3.3 g/dL (3.5-5.2) L 02/23/21 05:40 Globulin 2.9 g/dL (1.3-4.6) 02/23/21 05:40 Lipase 19 U/L (13-60) 02/20/21 11:30 Urine Color [place] (Yellow) 02/20/21 13:09 Urine Appearance Clear (CLEAR) 02/20/21 13:09 Urine pH 5 (5-7) 02/20/21 13:09 Ur Specific [place] 1.020 (1.005-1.030) 02/20/21 13:09 Urine Protein 1+ (Negative) H 02/20/21 13:09 Urine Glucose (UA) 1+ (Normal) 02/20/21 13:09 Urine Ketones Negative (Negative) 02/20/21 13:09 Urine Blood Neg (Negative) 02/20/21 13:09 Urine Nitrate Positive (Negative) H 02/20/21 13:09 Urine Bilirubin 1+ (Negative) H 02/20/21 13:09 Urine Urobilinogen 4 mg/dL (Negative) H 02/20/21 13:09 Ur Leukocyte Esterase Negative (Negative) 02/20/21 13:09 Urine RBC None /hpf (0-2) 02/20/21 13:09 Urine WBC 0-4 /hpf (0-5) H 02/20/21 13:09 Ur Squamous Epith Cells 25-40 /hpf (0-5) H 02/20/21 13:09 Amorphous Sediment Not Reportable 02/20/21 13:09 Urine Bacteria Trace /hpf (NONE) 02/20/21 13:09 Hyaline Casts 5-10 /lpf H 02/20/21 13:09 Urine Mucus 2+ /hpf 02/20/21 13:09 Micro: Microbiology 02/21/21 20:20 Urine Culture - Final Urine,Voided A&P Assessment and plan (1) Elevated troponin: Patient status post cardiac catheterization revealing subtotal occlusion of the obtuse marginal artery distal to the venous graft. Underwent PCI of this lesion. Currently remaining stable. 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 Patent VALLES to the LAD. Subtotal occlusion of the OM1 distal to the anastomosis. Status: Acute Qualifiers: [place] vs. transplanted heart: resighini heart Qualified Code(s): I25.119 - Atherosclerotic heart disease of resighini coronary artery with unspecified angina pectoris (3) Benign essential HTN: Blood pressure is under control. May continue on the current medications. Status: Acute (4) Dyslipidemia (high LDL; low HDL): Continue on the current management. Follow-up evaluation as scheduled. Status: Acute (5) Uncontrolled type 2 diabetes with neuropathy: Continue on the current measures. Status: Chronic (6) UTI (urinary tract infection): Management as per the primary Status: Acute Qualifiers: Hematuria presence: without hematuria Urinary tract infection type: site unspecified Qualified Code(s): N39.0 - Urinary tract infection, site not specified Additional A&P Information If the patient continues remain stable, may be discharged home today. Discussed with Dr. Paz. She may be seen in the [facility] by the nurse practitioner in 1 week. 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 transplanted heart: resighini heart Benign essential HTN I10 Dyslipidemia (high LDL; low HDL) E78.5 Uncontrolled type 2 diabetes with neuropathy E11.40; E11.65 UTI (urinary tract infection) N39.0 Hematuria presence: without hematuria Urinary tract infection type: site unspecified
[2021-02-24] MEDS: metoprolol tartrate 25 mg Tablet PO (09:48)
[2021-02-24] MEDS: famotidine 20 mg Tablet PO (09:48)
[2021-02-24] MEDS: tamsulosin 0.4 mg Capsule PO (09:48)
--- NOTE | 2021-02-24 10:22 | PM.DCS ---
Discharge Providers Date of Admission: 02/20/21 15:15 Date of Discharge: February 24, 2021 Attending Provider at Admission: Miles Paz MD Attending Provider at Discharge: Miles Paz MD Primary Care Provider: William Chan MD Diagnoses at Discharge Discharge Diagnosis (1) Non-ST elevated myocardial infarction (non-STEMI): Status: Acute (2) Atherosclerotic heart disease [place] coronary artery w/angina pectoris: Status: Acute Qualifiers: [place] vs. transplanted heart: [place] heart Qualified Code(s): I25.119 - Atherosclerotic heart disease of [place] coronary artery with unspecified angina pectoris (3) Benign essential HTN: Status: Acute (4) Dyslipidemia (high LDL; low HDL): Status: Acute (5) Uncontrolled type 2 diabetes with neuropathy: Status: Chronic (6) UTI (urinary tract infection): Status: Acute Qualifiers: Hematuria presence: without hematuria Urinary tract infection type: site unspecified Qualified Code(s): N39.0 - Urinary tract infection, site not specified Reason for Visit Reason for Visit: CHEST/KIDNEY PAIN, POST HEART SURGERY Hospital Course Hospital Course Yasmani Teixeira is a 70 year old female with pmh of CAD S/P CABG (VALLES to LAD, reverse saphenous vein graft aorta to the diagonal artery, reverse saphenous vein graft aorta to the obtuse marginal branch of circumflex artery) ( December 08, 2020) , DM, Hypothyroidism,fibromyalgia, was admitted with c/o lt sided chest pressure radiating to lt arm started around last night, chest pressure was associated with nausea she is also complaining of back pain she was also complaining of pain in her left abdomen left upper back, left shoulder and it radiates across her left chest. She says it does not feel like her last heart attack though.She says her urine has been dark yellow-colored and she has not eaten or drank anything since 5 PM yesterday.Upon arrival in the ER she was worked up for above mentioned complaint. EKG : Sinus Tachycardia :Xray chest : No pulmonary congestion, no effusion, no infiltrates, no PTX. Pertinent labs :WBC : 6.3, H/H: 13/41, PLT : 319, Na : 140, k : 4.2 , BUN/SCR: 13/0.6, Troponin : Baseline : 183, 2h : 160, 2h Delta: -22.3, 6H : Pending , Pro Bnp : 615 , D-Dimer : 0.73 Urine Analysis : Nitrite :Positive , Urine WBC : 0/4, Urine Squamous epith cell: 25-40, ECA Medications: Aspirin 325 mg po , Plavix 75 mg po * 1 Dose, Morphine .s : 2 mg I.V 8 1 Dose, Lovenox: 80 mg sc * 1 dose.She was admitted for the management of NSTEMI. She was kept on ACS Protocol. Subsequent work up included 2D Echo :Normal LV size and ejection fraction of around 61%. Mild diffuse hypokinesia of the septum and anteroseptal segments. Normal cardiac chamber sizes. No significant morphology abnormalities in the valves. No Intracardiac masses No pericardial effusion. Myocardial perfusion . moderate area of ischemia in the distribution of the left circumflex artery.She underwent LHC and was found to have LCx lesion s/p stent ( Final CAG +- PCI Report is awaited). She was also switched to brilinanta from plavix on discharge as per cardiology recommendations. she was also manged for UTI and was kept on cef as well as levofloxacin. Fianl urine culture was negative. she responded well to the above medical management and was discharged in stable condition. She will follow pcp as well as cardiology as outpatient. Physical Exam Const: COMMON NORMALS: patient oriented x3 HENMT: COMMON NORMALS: normocephalic and atraumatic HEAD & SCALP: normocephalic and atraumatic Chest: CHEST: Yes Symmetrical chest wall rise Resp: COMMON NORMALS: clear to auscultation bilaterally EFFORT & INSPECTION: Yes symmetric chest movement AUSCULTATION: clear to auscultation bilaterally Cardio: COMMON NORMALS: regular rate, regular rhythm, S1 normal heart sound present, S2 normal heart sound present, No gallops present (Cardio), No murmurs present (Cardio), No rub (Cardio) and Peripheral pulses 2+ throughout RATE: regular rate RHYTHM: regular rhythm HEART SOUNDS: S1 normal heart sound present and S2 normal heart sound present PERIPHERAL PULSES: Peripheral pulses 2+ throughout GI: COMMON NORMALS: Normal to inspection, nondistended, normoactive bowel sounds present, Soft to palpation, non-tender, No hepatosplenomegaly present and no masses AUSCULTATION: Yes normoactive bowel sounds PALPATION: Yes Soft to palpation and Yes No hepatosplenomegaly present RECTAL EXAM: deferred Extremity: COMMON NORMALS: no clubbing, cyanosis or edema and no pedal edema Neuro: COMMON NORMALS: patient oriented x3 Urinary Catheter Management^: Garcia: Cath Placed During This Visit: yes Urinary Catheter Date of Insertion: 02/23/21 Urinary Catheter Time of Insertion: 20:57 Discharge Data Data Completed and Pending: Completed Studies During Hospitalization Category Date Time Status Cardiac Stress Te st MIBI [Sestamibi Stress Test Reque st Exams 02/23/21 07:03 Draft ] Routine XR chest 1V lulu ble 62211 Urgent Exams 02/20/21 11:11 Completed NM bijan perf SPECT r/s* 18001 Routin e Nuc Med 02/23/21 00:08 Completed CV echo limited 9 7325 Routine Ultrasound 02/21/21 06:00 Completed Pending at discharge Category Date Time Status ULTRASOUND SONOGRAPHER request for service Routin e Exams 02/23/21 13:44 Ordered Labs from last 24 hours 02/24/21 02/24/21 02/23/21 06:44 00:29 22:27 APTT 34.4 61.3 H D POC Glucose 166 H 02/23/21 02/23/21 02/23/21 20:20 20:10 11:08 APTT > 250.0 H* POC Glucose 199 H 269 H Vitals: Last Vital Signs Temp 98.3 F 02/24/21 07:15 Pulse 108 H 02/24/21 07:15 Resp 23 H 02/24/21 07:15 BP 130/89 02/24/21 07:15 Pulse Ox 94 02/24/21 07:15 Discharge Plan Discharge Patient Disposition: Home Condition: Stable Prescriptions: New Brilinta 90 mg tablet 90 mg PO BID Qty: 60 RF: 3 Continued metoprolol tartrate 25 mg tablet 25 mg PO BID RF: 0 levothyroxine 175 mcg tablet 175 mcg PO QAM RF: 0 glimepiride 4 mg tablet 4 mg PO BID RF: 0 ondansetron HCl [Zofran] 4 mg tablet 4 mg PO Q6H PRN (Reason: nausea and vomiting) Qty: 10 RF: 0 zolpidem 10 mg tablet 10 mg PO BEDTIME PRN (Reason: Sleep) RF: 0 atorvastatin 40 mg tablet 40 mg PO QAM RF: 0 isosorbide mononitrate 30 mg tablet extended release 24 hr 30 mg PO QAM RF: 0 hydrocodone-acetaminophen 10-325 mg tablet 1 tab PO Q6H PRN (Reason: Pain) RF: 0 aspirin 81 mg Tablet,Delayed Release (Dr/Ec) 81 mg PO QAM RF: 0 pantoprazole 20 mg tablet,delayed release (DR/EC) 20 mg PO DAILY RF: 0 lisinopril 10 mg tablet 10 mg PO QAM RF: 0 Lantus Solostar U-100 Insulin 100 unit/mL (3 mL) insulin pen 14 unit SUBCUT QAM RF: 0 baclofen 10 mg Tablet 10 mg PO BEDTIME RF: 0 Discontinued clopidogrel 75 mg tablet 75 mg PO QAM RF: 0 Discharge Orders: Discharge Order (Routine); Ordered 02/24/21 Ordered By: Miles Paz Referrals: Rey Denis MD [Physician] - 1 month (Please follow-up with Dr. Denis on April 09 at 11:15A.M. If you have any questions or need to reschedule. Please call Your appointment with Dr. Denis for tomorrow has been cancelled an rescheduled with Nolvia Tyler. ) Nolvia Tyler FNP [Nurse Practitioner] - (Please follow-up with Nolvia Tyler on March 03 at 12:45P.M. If you have any questions or need to reschedule. Please call ) Discharge Diet: Diabetic Discharge Activity: Resume usual activity Patient Instructions: Ticagrelor (By mouth), Coronary Angioplasty (DC), Urinary Tract Infection in Women (DC), Hypertension (DC), Post Angiogram Home Care Instructions Discharge Attestations Time Spent in Discharge Care*: greater than 30 min Specific Discharge Activities: educating patient, educating and/or supporting family/caregiver, discussing with pcp/other providers, discussing with case aide/social workers/dc planners, documenting/other paperwork and evaluating patient/reviewing data Status at Discharge: Cognitive status at discharge: cognitively intact, Behavioral status at discharge: cooperative, Quality Metrics Clinical Quality Measures During this hospital stay, did patient experience: None Coding Level of Care Code Acute Chg FW DC note Diagnoses Non-ST elevated myocardial infarction (non-STEMI) I21.4 Atherosclerotic heart disease [place] coronary artery w/angina pectoris I25.119 [place] vs. transplanted heart: [place] heart Benign essential HTN I10 Dyslipidemia (high LDL; low HDL) E78.5 Uncontrolled type 2 diabetes with neuropathy E11.40; E11.65 UTI (urinary tract infection) N39.0 Hematuria presence: without hematuria Urinary tract infection type: site unspecified
--- NOTE | 2021-02-24 10:36 | PC.NURSE ---
other delay other pt care.
--- NOTE | 2021-02-24 11:12 | PC.NURSE ---
Pt discharged home. IV removed no redness or swelling noted. Pts discharge instructions given along prescriptions and follow up appointments. Pt verbalized understanding. Pt had no c/o pain or discomfort at the present time of discharge. Pt transferred out via wheelchair accompanied by staff. .
== END 2021-02-24 11:07 | disposition home or self-care (01) | DRG 247 ==
LOC: ER 11:06 → CSU 15:26
PROVIDERS: Internal Medicine; Internal Medicine Cardiovascular Disease; Admitting Provider Internal Medicine; Emergency Provider Family Medicine; PCP Family Medicine; Visit Provider Internal Medicine
PROC: 027034Z Dilation of Coronary Artery, One Artery with Drug-eluting Intraluminal Device, Percutaneous Approach (ICD-10-PCS; principal; 2021-02-23 16:30)
DX: I21.4 Non-ST elevation (NSTEMI) myocardial infarction (principal); N39.0 Urinary tract infection, site not specified; I25.119 Atherosclerotic heart disease of native coronary artery with unspecified angina pectoris; Z95.1 Presence of aortocoronary bypass graft; E11.65 Type 2 diabetes mellitus with hyperglycemia; E11.40 Type 2 diabetes mellitus with diabetic neuropathy, unspecified; E03.9 Hypothyroidism, unspecified; M79.7 Fibromyalgia; E78.5 Hyperlipidemia, unspecified; Z85.43 Personal history of malignant neoplasm of ovary; Z87.891 Personal history of nicotine dependence; Z79.82 Long term (current) use of aspirin; Z79.02 Long term (current) use of antithrombotics/antiplatelets; I10 Essential (primary) hypertension; Z79.891 Long term (current) use of opiate analgesic; Z79.4 Long term (current) use of insulin
CPT/HCPCS: 36415; 36416; 51702; 71045; 78452; 80053; 81001; 82962; 83605; 83690; 83735; 83880; 84484; 85025; 85347; 85378; 85610; 85730; 87086; 93005; 93017; 93308; 93459; 96365; 96372; 96374; 96375; 99285; A9500; C1725; C1769; C1874; C1887; C1894; C9600; J0280; J0696; J1200; J1644; J1650; J1815; J2250; J2270; J2405; J2785; J3010; J3490; J7030; Q9967

== ENCOUNTER 2021-02-26 13:46 | Emergency (ER) | payer MEDICARE, BC, SELFPAY ==
[2021-02-26 13:48] VITALS: BP 116/74; PULSE 105; RESP 18; O2SAT 97; BMI 29.9
--- NOTE | 2021-02-26 14:06 | ECG_ITS ---
[facility] Test Date: 2021-02-26 Pat Name: Yasmani Teixeira Department: Room: Gender: Female Systems Analyst: : 1950 Requested By: Donnell Scherer Order Number: [id number] Soler MD: Nguyen Swanson M.D. Measurements Intervals [place] Rate: 100 P: 44 ID: 150 QRS: -20 QRSD: 85 T: 101 QT: 347 QTc: 449 Interpretive Statements SINUS TACHYCARDIA NONSPECIFIC T-WAVE ABNORMALITY Compared to ECG 02/20/2021 17:57:01 T-wave abnormality now present Myocardial infarct finding no longer present Electronically Signed On 02-26-2021 21:04:10 CDT by Nguyen Swanson M.D. [id number]
--- NOTE | 2021-02-26 14:07 | XR_ITS ---
WS: [id number] Portable AP upright chest, 02/26/2021 Clinical Data: dyspnea Comparison: Portable chest, 02/20/2021. Findings: No nodules, masses or effusions are seen. The heart is normal. The pulmonary vascularity is not increased. No pneumonia or pneumothorax is seen. Midline sternotomy sutures are present. The aor tic arch and descending aorta show tortuosity. Monitor leads are on the chest wall. XR/XR chest 1V portable [id number] Impression: Atherosclerosis.
[2021-02-26 14:30] VITALS: O2SAT 93
[2021-02-26 14:41] LABS: Basophils # 0.1 10^3/uL (0.0-0.1); Basophils % 0.8 %; Eosinophils # 0.2 10^3/uL (0.0-0.8); Hemoglobin 12.2 g/dL (11.5-15.3); Lymphocytes # 1.8 10^3/uL (0.8-4.8); Lymphocytes % 23.2 %; Mean Corpuscular HGB Conc 32.1 g/dL (30.0-36.0); Mean Corpuscular Hemoglobin 28.2 pg (28.0-34.0); Mean Platelet Volume 10.1 fL (7.4-10.4); Monocytes # 0.5 10^3/uL (0.2-0.9); Monocytes % 6.3 %; Neutrophils # 5.22 10^3/uL (1.8-7.7); Neutrophils % 66.3 %; Nucleated Red Blood Cells % 0 %; Platelet Count 301 10^3/cmm (130-400); Red Blood Count 4.32 10^6/uL (4.1-5.3); Red Cell Distribution Width 13.7 % (12.1-15.1); White Blood Count 7.9 10^3/uL (4.0-10.0)
[2021-02-26] MEDS: ondansetron 2 mg/ML SDV 2 mL 4 MG IVP (14:58)
[2021-02-26] MEDS: morphine 4 mg/mL SDV 1 mL 2 MG IVP (14:58)
[2021-02-26 15:01] VITALS: BP 113/64; PULSE 96; RESP 18; O2SAT 95
[2021-02-26 15:04] LABS: Troponin(5th) Baseline 135 ng/L (0-10)
[2021-02-26 15:06] LABS: Alanine Aminotransferase 16 U/L (0-33); Albumin Level 3.8 g/dL (3.5-5.2); Alkaline Phosphatase 108 IU/L (35-105); Anion Gap 13.4 (5-19); Aspartate Amino Transferase 17 U/L (0-32); Blood Urea Nitrogen 9 mg/dL (8-23); Calcium 9.4 mg/dL (8.5-10.5); Carbon Dioxide 24 mmol/L (22-29); Chloride 105 mmol/L (98-107); Creatinine Clr Calc Pharmacy 70.0508; Globulin 2.1 g/dL (1.3-4.6); Glucose 223 mg/dL (65-115); NT Pro B Type Natriuretic Pept 989 pg/mL (0-125); Osmolality Calculated 292 mOsm/kg (285-295); Potassium 4.4 mmol/L (3.5-5.1); Sodium 138 mmol/L (136-145); Total Bilirubin 0.3 mg/dL (0.15-1.2); Total Protein 5.9 g/dL (6.6-8.7)
[2021-02-26 15:43] LABS: D Dimer 0.59 ug/mIFEU (0-0.59)
--- NOTE | 2021-02-26 16:06 | ECG_ITS ---
[facility] Test Date: 2021-02-26 Pat Name: Yasmani Teixeira Department: Room: Gender: Female Methods Study Analyst: : 1950 Requested By: Donnell Scherer Order Number: [id number] Ryder MD: Nguyen Swanson M.D. Measurements Intervals [place] Rate: 90 P: 45 [place]: 132 QRS: -8 QRSD: 90 T: 89 QT: 370 QTc: 455 Interpretive Statements SINUS RHYTHM NONSPECIFIC T-WAVE ABNORMALITY Compared to ECG 02/26/2021 14:03:08 Sinus tachycardia no longer present T-wave abnormality still present Electronically Signed On 02-26-2021 21:13:56 CDT by Nguyen Swanson M.D. [id number]
[2021-02-26 16:52] VITALS: BP 129/83; PULSE 98; RESP 16; O2SAT 100
[2021-02-26 17:19] LABS: Add Urine Microscopic? NO; Charge for UA Resulting for Rev
[2021-02-26 17:19] LABS: Troponin 5 2HR Delta 0.3 ABS# (0-10)
[2021-02-26 17:21] LABS: Bilirubin Urine Neg (Negative); Blood Urine Neg (Negative); Glucose Urine UA 1+ (Normal); Ketones Urine Negative (Negative); Leukocyte Esterase Urine Negative (Negative); Nitrate Urine Negative (Negative); Protein Urine Neg (Negative); Specific Gravity, Urine 1.015 (1.005-1.030); Urine Appearance Clear (CLEAR); Urine Color Yellow (Yellow); Urobilinogen Urine Norm (Negative); pH Urine 6 (5-7)
[2021-02-26 17:21] LABS: Troponin 5 2HR 135.3 ng/L (0-10)
[2021-02-26 18:10] VITALS: BP 116/68; PULSE 109; RESP 23; O2SAT 98
[2021-02-26] MEDS: acetaminophen 325 mg Tablet 650 MG PO (19:09)
--- NOTE | 2021-02-26 19:20 | W.ED.CHESTPA ---
HPI - Chest Pain General: Chief Complaint: Chest Pain Stated Complaint: DIFF BREATHING, HEAVY CHEST, OPEN-HEART SURG 10 WK Time Seen by Provider: 02/26/21 13:58 History of Present Illness: HPI narrative: The patient is a 70-year-old female with past medical history coronary artery disease and CABG 10 weeks ago. She was admitted recently and discharged only 2 days ago for chest pain where she had a NSTEMI. She comes to the ER today complaining of chest heaviness and shortness of breath. These are the same symptoms she was having a couple weeks ago when she was admitted for the non-STEMI. She took a 325 aspirin prior to arrival. She declined nitroglycerin because she knows it gives her a headache. I recommended she take it and still she declines. She is aware she could be having a heart attack. MD complaint: chest heaviness Pertinent past history: coronary artery disease, prior ID and CABG Timing of current episode: constant Onset: during rest and during exertion Pain location: left chest Pain radiation: none Severity: moderate Quality: heaviness and similar to prior ID Relieving factors: nothing Exacerbating factors: nothing Associated symptoms: Reports no associated symptoms and dyspnea; Deny abdominal pain or palpitations Review of Systems General: Reports: 10 or more systems reviewed and unremarkable except in HPI and below Const: Denies: fatigue Eyes: Denies: change in vision, blurry vision or eye redness ENMT: Denies: throat pain, swelling of lips/tongue, ear or mastoid pain or nasal congestion Card: Reports: chest pain; Denies: palpitations, irregular heart rhythm, edema, dyspnea on exertion or orthopnea Resp: Reports: dyspnea; Denies: productive cough or non-productive cough GI: Denies: abdominal pain, diarrhea or GI cramping : Denies: flank pain, difficulty voiding, urinary frequency or urinary urgency Musc: Denies: neck pain, back pain, extremity pain, joint pain, joint redness, limited range of motion or muscle weakness Skin/Breast: Denies: rash, pruritus, erythema, skin pain or skin tenderness Neuro: Denies: headache(s), numbness in extremities, weakness in extremities, sensory changes, difficulty walking, dizziness, confusion or Slurred speech present Psych: Denies: anxiety or depression Endo: Denies: polyuria All/Imm: Denies: urticaria, throat swelling or tongue swelling PFSH ED PFSH: Medical History Fibromyalgia On as needed hydrocodone and baclofen Hyperlipidemia Not currently on treatment Hypothyroid Ovarian cancer Treated with hysterectomy with salpingo-oophorectomy Uncontrolled type 2 diabetes with neuropathy Surgical History H/O: hysterectomy History of tonsillectomy Hx of appendectomy Hx of cholecystectomy Family History Sister Cancer uterine/cervix CAD (coronary artery disease) Diabetes Mother Cancer cervix Father CAD (coronary artery disease) Brother CAD (coronary artery disease) Diabetes Grandmother Diabetes Denies family history of Clotting disorder Dementia Chronic kidney disease (CKD) Suicide Anesthesia complication Bleeding disorder Lung disease Stroke Social History Smoking and tobacco status: former smoker Alcohol intake: never Lives independently: Yes Household members: none Additional social history: Smoked for few years in her 20s Female Reproductive History: Para: 2 Physical Exam Const: COMMON NORMALS: no acute distress, average body habitus, patient oriented x3, no limitations, healthy appearing, alert and well nourished GENERAL APPEARANCE: cooperative, comfortable, well kempt and well developed ORIENTATION/CONSCIOUSNESS: Yes awake, Yes oriented to person, Yes oriented to place and Yes oriented to time HENMT: COMMON NORMALS: normocephalic, external ears normal and Normal external nose present HEAD & SCALP: normal to inspection and normocephalic NOSE: Normal external nose present EXTERNAL EAR: Yes external ears normal MOUTH: Normal oral and palatal mucosa present THROAT: posterior oropharynx normal Eye: COMMON NORMALS: Equal, round and reactive pupils present and EOMs intact bilaterally GENERAL EYE: appearance normal, both eyes and all related structures PUPIL: Yes Equal, round and reactive pupils present Neck/C-Spine: COMMON NORMALS: full ROM, no lymphadenopathy, no meningeal signs and no JVD GENERAL: Yes normal visual inspection Lymph: LYMPHATIC: no lymphadenopathy noted Chest: COMMONS NORMALS: normal inspection of the chest and normal palpation of entire chest wall Resp: COMMON NORMALS: normal respiratory effort, No retractions, No use of accessory muscles, clear to auscultation bilaterally and percussion normal EFFORT & INSPECTION: Yes able to speak in complete sentences AUSCULTATION: clear to auscultation bilaterally PERCUSSION: percussion normal Cardio: COMMON NORMALS: no JVD, regular rate, regular rhythm, S1 normal heart sound present, S2 normal heart sound present and Peripheral pulses 2+ throughout RATE: regular rate RHYTHM: regular rhythm HEART SOUNDS: S1 normal heart sound present and S2 normal heart sound present PERIPHERAL PULSES: Peripheral pulses 2+ throughout GI: COMMON NORMALS: Normal to inspection, nondistended, normoactive bowel sounds present, Soft to palpation, non-tender and no masses INSPECTION: Yes normal to inspection PALPATION: Yes Soft to palpation : COMMON NORMALS: Yes no CVA tenderness BLADDER/KIDNEY EXAM: Yes no CVA tenderness Back/Pelvis: COMMON NORMALS: no CVA tenderness, thoracic and lumbar spine normal to inspection, no thoracic nor lumbar tenderness and thoraco-lumbar ROM normal Extremity: COMMON NORMALS: normal to inspection, full ROM, capillary refill normal, no joint enlargement and no pedal edema GENERAL: Yes normal exam except as noted Neuro: COMMON NORMALS: patient oriented x3, CN's II-XII intact bilaterally, moves all extremities, no focal motor deficits, no sensory deficits noted and gait normal SENSORIUM/ORIENTATION: Yes alert, Yes oriented to person, Yes oriented to place and Yes oriented to time MENINGEAL SIGNS: Yes no meningeal signs Psych: COMMON NORMALS: mental status grossly normal, Normal thought process present, cooperative, normal affect and speech normal APPEARANCE: Yes well kempt ATTITUDE: Yes calm SPEECH: Yes normal speech THOUGHT PROCESS: Normal thought process present Skin: COMMON NORMALS: no rashes or lesions noted GENERAL SKIN EXAM: no rashes or lesions noted Course Vital Signs: Vital signs: Vital Signs Pulse Rate 109 H 02/26/21 18:10 Respiratory Rate 23 H 02/26/21 18:10 Blood Pressure 116/68 02/26/21 18:10 Pulse Oximetry 98 02/26/21 18:10 MDM - Chest Pain MDM Narrative: Medical decision making narrative: The patient came in with similar symptoms to a couple weeks ago when she was admitted and had a non-STEMI. She is 10 weeks post CABG surgery and is having chest heaviness and shortness of breath. Her initial troponin is elevated at 135 and repeat was also 135. No ST changes on either EKG. Discussed with Dr. Denis who recommended keeping her observation as we are unclear of her baseline troponin. I had the hospitalist paged out however the patient requested to leave AGAINST MEDICAL ADVICE. I discussed with her it is likely she is having a heart attack and recommended staying as she could from this. She says she does not want to stay and understands and accepts that she could be having a heart attack but prefers to see her doctor tomorrow. Recommended return to the ER at any time. She signed AMA and walked out on her own well. Lab Data: Labs: Lab Results 02/26/21 02/26/21 02/26/21 Range/Units 14:20 14:20 14:20 WBC 7.9 (4.0-10.0) 10^3/ uL RBC 4.32 (4.1-5.3) 10^6/u L Hgb 12.2 (11.5-15.3) g/dL Hct 38.0 (37.0-47.0) % MCV 88.0 (81-99) fL MCH 28.2 (28.0-34.0) pg MCHC 32.1 (30.0-36.0) g/dL RDW 13.7 (12.1-15.1) % Plt Count 301 (130-400) 10^3/c mm MPV 10.1 (7.4-10.4) fL Neut % (Auto) 66.3 % Lymph % (Auto) 23.2 % Houghton % (Auto) 6.3 % Eos % (Auto) 3.0 % Baso % (Auto) 0.8 % Neut # (Auto) 5.22 (1.8-7.7) 10^3/u L Lymph # (Auto) 1.8 (0.8-4.8) 10^3/u L Houghton # (Auto) 0.5 (0.2-0.9) 10^3/u L Eos # (Auto) 0.2 (0.0-0.8) 10^3/u L Baso # (Auto) 0.1 (0.0-0.1) 10^3/u L Nucleated RBC % (a uto) 0 % Nucleated RBCs # 0.0 /100WBC D-Dimer Cancelled Sodium 138 (136-145) mmol/L Potassium 4.4 (3.5-5.1) mmol/L Chloride 105 (98-107) mmol/L Carbon Dioxide 24 (22-29) mmol/L Anion Gap 13.4 (5-19) BUN 9 (8-23) mg/dL Creatinine 0.7 (0.5-0.9) mg/dL GFR Calculation 83.0 L (90-130) mL/min Glucose 223 H (65-115) mg/dL Calculated Osmolal ity 292 (285-295) mOsm/k g Calcium 9.4 (8.5-10.5) mg/dL Total Bilirubin 0.3 (0.15-1.2) mg/dL AST 17 (0-32) U/L ALT 16 (0-33) U/L Alkaline Phosphata se 108 H (35-105) IU/L Troponin T Baselin e (0-10) ng/L Troponin T 120 Min circle (0-10) ng/L Delta Troponin T (0-10) ABS# NT-Pro-B Natriuret Pep 989 H (0-125) pg/mL Total Protein 5.9 L (6.6-8.7) g/dL Albumin 3.8 (3.5-5.2) g/dL Globulin 2.1 (1.3-4.6) g/dL Urine Color (Yellow) Urine Appearance (CLEAR) Urine pH (5-7) Ur Specific Gravit y (1.005-1.030) Urine Protein (Negative) Urine Glucose (UA) (Normal) Urine Ketones (Negative) Urine Blood (Negative) Urine Nitrate (Negative) Urine Bilirubin (Negative) Urine Urobilinogen (Negative) mg/dL Ur Leukocyte Barbara ase (Negative) 02/26/21 02/26/21 02/26/21 Range/Units 14:20 14:50 16:30 WBC (4.0-10.0) 10^3/ uL RBC (4.1-5.3) 10^6/u L Hgb (11.5-15.3) g/dL Hct (37.0-47.0) % MCV (81-99) fL MCH (28.0-34.0) pg MCHC (30.0-36.0) g/dL RDW (12.1-15.1) % Plt Count (130-400) 10^3/c mm MPV (7.4-10.4) fL Neut % (Auto) % Lymph % (Auto) % Houghton % (Auto) % Eos % (Auto) % Baso % (Auto) % Neut # (Auto) (1.8-7.7) 10^3/u L Lymph # (Auto) (0.8-4.8) 10^3/u L Houghton # (Auto) (0.2-0.9) 10^3/u L Eos # (Auto) (0.0-0.8) 10^3/u L Baso # (Auto) (0.0-0.1) 10^3/u L Nucleated RBC % (a uto) % Nucleated RBCs # /100WBC D-Dimer 0.59 Sodium (136-145) mmol/L Potassium (3.5-5.1) mmol/L Chloride (98-107) mmol/L Carbon Dioxide (22-29) mmol/L Anion Gap (5-19) BUN (8-23) mg/dL Creatinine (0.5-0.9) mg/dL GFR Calculation (90-130) mL/min Glucose (65-115) mg/dL Calculated Osmolal ity (285-295) mOsm/k g Calcium (8.5-10.5) mg/dL Total Bilirubin (0.15-1.2) mg/dL AST (0-32) U/L ALT (0-33) U/L Alkaline Phosphata se (35-105) IU/L Troponin T Baselin e 135 H* (0-10) ng/L Troponin T 120 Min circle 135.3 H (0-10) ng/L Delta Troponin T 0.3 (0-10) ABS# NT-Pro-B Natriuret Pep (0-125) pg/mL Total Protein (6.6-8.7) g/dL Albumin (3.5-5.2) g/dL Globulin (1.3-4.6) g/dL Urine Color (Yellow) Urine Appearance (CLEAR) Urine pH (5-7) Ur Specific Gravit y (1.005-1.030) Urine Protein (Negative) Urine Glucose (UA) (Normal) Urine Ketones (Negative) Urine Blood (Negative) Urine Nitrate (Negative) Urine Bilirubin (Negative) Urine Urobilinogen (Negative) mg/dL Ur Leukocyte Barbara ase (Negative) 02/26/21 Range/Units 17:00 WBC (4.0-10.0) 10^3/ uL RBC (4.1-5.3) 10^6/u L Hgb (11.5-15.3) g/dL Hct (37.0-47.0) % MCV (81-99) fL MCH (28.0-34.0) pg MCHC (30.0-36.0) g/dL RDW (12.1-15.1) % Plt Count (130-400) 10^3/c mm MPV (7.4-10.4) fL Neut % (Auto) % Lymph % (Auto) % Houghton % (Auto) % Eos % (Auto) % Baso % (Auto) % Neut # (Auto) (1.8-7.7) 10^3/u L Lymph # (Auto) (0.8-4.8) 10^3/u L Houghton # (Auto) (0.2-0.9) 10^3/u L Eos # (Auto) (0.0-0.8) 10^3/u L Baso # (Auto) (0.0-0.1) 10^3/u L Nucleated RBC % (a uto) % Nucleated RBCs # /100WBC D-Dimer Sodium (136-145) mmol/L Potassium (3.5-5.1) mmol/L Chloride (98-107) mmol/L Carbon Dioxide (22-29) mmol/L Anion Gap (5-19) BUN (8-23) mg/dL Creatinine (0.5-0.9) mg/dL GFR Calculation (90-130) mL/min Glucose (65-115) mg/dL Calculated Osmolal ity (285-295) mOsm/k g Calcium (8.5-10.5) mg/dL Total Bilirubin (0.15-1.2) mg/dL AST (0-32) U/L ALT (0-33) U/L Alkaline Phosphata se (35-105) IU/L Troponin T Baselin e (0-10) ng/L Troponin T 120 Min circle (0-10) ng/L Delta Troponin T (0-10) ABS# NT-Pro-B Natriuret Pep (0-125) pg/mL Total Protein (6.6-8.7) g/dL Albumin (3.5-5.2) g/dL Globulin (1.3-4.6) g/dL Urine Color Yellow (Yellow) Urine Appearance Clear (CLEAR) Urine pH 6 (5-7) Ur Specific Gravit y 1.015 (1.005-1.030) Urine Protein Neg (Negative) Urine Glucose (UA) 1+ (Normal) Urine Ketones Negative (Negative) Urine Blood Neg (Negative) Urine Nitrate Negative (Negative) Urine Bilirubin Neg (Negative) Urine Urobilinogen Norm (Negative) mg/dL Ur Leukocyte Barbara ase Negative (Negative) Discharge Plan Discharge Patient Disposition: Left Against Medical Advice Prescriptions: No Action metoprolol tartrate 25 mg tablet 25 mg PO BID@,18 RF: 0 levothyroxine 175 mcg tablet 175 mcg PO QAM RF: 0 glimepiride 4 mg tablet 4 mg PO BID@ RF: 0 ondansetron HCl [Zofran] 4 mg tablet 4 mg PO Q6H PRN (Reason: nausea and vomiting) Qty: 10 RF: 0 zolpidem 10 mg tablet 10 mg PO BEDTIME PRN (Reason: Sleep) RF: 0 atorvastatin 40 mg tablet 40 mg PO DAILY@07 RF: 0 isosorbide mononitrate 30 mg tablet extended release 24 hr 30 mg PO DAILY@07 RF: 0 aspirin 81 mg Tablet,Delayed Release (Dr/Ec) 81 mg PO DAILY@07 RF: 0 pantoprazole 20 mg tablet,delayed release (DR/EC) 20 mg PO DAILY RF: 0 lisinopril 10 mg tablet 10 mg PO QAM RF: 0 Lantus Solostar U-100 Insulin 100 unit/mL (3 mL) insulin pen 14 unit SUBCUT QAM RF: 0 baclofen 10 mg Tablet 10 mg PO BEDTIME PRN (Reason: Muscle Spasm) RF: 0 oxycodone-acetaminophen 10-325 mg tablet 1 tab PO Q6H PRN (Reason: Pain) RF: 0 Brilinta 90 mg tablet 90 mg PO BID@,18 RF: 0 Referrals: William Chan MD [Primary Care Provider] - Coding Level of Care Code ED Correction Officer Head for Chg Fwd Exam Comprehensive
--- NOTE | 2021-02-26 19:24 | PC.NURSE ---
After speaking with patient and Dr. Scherer, pt states that she would like to leave. Pt is notified by this nurse and Dr. Scherer of the risks of leaving and she was advised to stay. Pt states she still wants to leave. Pt signed AMA papers and IV removed at 1920.
== END 2021-02-26 19:24 | disposition left against medical advice (07) ==
PROVIDERS: Emergency Provider Family Medicine; PCP Family Medicine
DX: R07.9 Chest pain, unspecified (principal); Z53.21 Procedure and treatment not carried out due to patient leaving prior to being seen by health care provider; Z79.82 Long term (current) use of aspirin; Z79.4 Long term (current) use of insulin; E78.5 Hyperlipidemia, unspecified; Z85.43 Personal history of malignant neoplasm of ovary; E11.40 Type 2 diabetes mellitus with diabetic neuropathy, unspecified; Z87.891 Personal history of nicotine dependence
CPT/HCPCS: 36415; 71045; 80053; 81003; 83880; 84484; 85025; 85378; 93005; 99284; J2270; J2405

== ENCOUNTER → 2021-03-04 15:24 | Outpatient (BNVA) | payer MEDICARE, BC, SELFPAY | PROVIDERS: PCP Family Medicine; Visit Provider Nurse Practitioner Family | DX: K04.7 Periapical abscess without sinus (principal); I25.119 Atherosclerotic heart disease of native coronary artery with unspecified angina pectoris | CPT/HCPCS: 80048 ==

== ENCOUNTER 2021-05-04 07:26 | Outpatient (CLI) | payer MEDICARE, BC, SELFPAY ==
[2021-05-04 08:12] VITALS: BMI 29.9
--- NOTE | 2021-05-04 08:12 | ECG_ITS ---
[facility] Test Date: 2021-05-04 Pat Name: Yasmani Teixeira Department: Room: Gender: Female Wall Man: : 1950 Requested By: Nolvia Tyler Order Number: [id number] Ryder MD: Rey Denis M.D. Interpretive Statements NAME OF STUDY: LEXISCAN SESTAMIBI STRESS TEST INDICATION: Diaphorisis, PROCEDURE: At the baseline, the EKG revealed normal sinus rhythm with some nonspecific T wave changes. The baseline blood pressure was 152/83 mm Hg with a heart rate of 68 beats/min. Lexiscan was infused over a period of 20 seconds. A total of 0.4 milligrams of Lexiscan was infused. The stress phase was continued for a total of 5 minutes. Heart rate at the end of the stress phase was 92 with a blood pressure 154/76. The EKG at the peak infusion revealed no significant changes. Sestamibi was injected 20 seconds after the Lexiscan infusion. The blood pressure at the recovery phase was 126/71 with a heart rate of 86 per minute. CONCLUSION: 1. No significant EKG changes with the LexiScan infusion 2. No LexiScan induced chest pain or cardiac arrhythmia 3. Normal blood pressure and heart rate response 4. Sestamibi/sestamibi perfusion scan pending; see separate report. Electronically Signed On 05-08-2021 16:14:51 CDT by Rey Denis M.D. [email or web address]
--- NOTE | 2021-05-04 08:13 | NMCV_ITS ---
NM bijan perf SPECT r/s* [id number] Yasmani Teixeira Age: 70 Gender: F : 1950 Exam Date: 05/04/2021 08:13 Ordering Phys: Nolvia Tyler Technologist: MARGARITA Joseph Exam Location: [facility] Indications: ATHEROSCLEROTIC HEART DISEASE STRESS TEST [facility] IMAGE PROTOCOL Rest/Stress 1 Lexiscan Day Radiopharmaceutical Dose (mCi) Administration Site Administered by Rest: Tc-99m 10.7 IV MARGARITA Banuelos Sestamibi Stress:Tc-99m 32.2 IV MARGARITA Banuelos Sestamibi Rest: 04-May-2021 60 Discovery 630 Stress: 04-May-2021 30 Discovery 630 0.4mg Lexiscan. Supine position only as patient was unable to lay prone. SPECT RESULTS Technical Quality: Good Raw Data Analysis: Normal Image Corrections: No attenuation or motion correction applied Summed Stress Score: 3 Summed Rest Score: 2 Summed Difference Score: 1 PERFUSION FINDINGS Small sized perfusion abnormality of basal to mid inferolateral wall on rest images with mild reversibility in mid inferior wall. FUNCTIONAL RESULTS (calculated via Gated SPECT) Stress Image LV EF (%): 80 Stress EDV (mL):86 TID: 1.16 Stress ESV (mL):17 FUNCTIONAL FINDINGS: The left ventricle is normal in size. Transient Ischemia Dilatation of 1.16. There is hyperdynamic left ventricular systolic function, LVEF=80% (likely overestimated due to small left ventricular cavity). There is hyperdynamic left ventricular wall thickening with no regional wall motion abnormality. Normal end diastolic and end systolic volumes. IMPRESSIONS 1. Small sized partially reversible perfusion abnormality of basal to mid inferolateral bryant. 2. This is suggestive of myocardial infarction in circumflex artery territory with minimal lyric-infarct ischemia. 3. There is hyperdynamic left ventricular systolic function, LVEF=80%. 4. No regional wall motion abnormality. 5. When compared to previous study dated 02/23/2021, area of myocardial infarction and lyric-infarct ischemia has decreased in size. Nguyen Swanson MD (Electronically Signed) Final Date: 06 May 2021 17:58 S
[2021-05-04] MEDS: regadenoson 0.4 Mg/5 ml Syringe IVP (09:23)
[2021-05-04] MEDS: ondansetron 2 mg/ML SDV 2 mL 4 MG IVP ×2 (09:24→09:33)
[2021-05-04 09:40] VITALS: BP 126/71; PULSE 86
== END 2021-05-04 07:27 | disposition home or self-care (01) ==
LOC: CDL 07:28
PROVIDERS: PCP Family Medicine; Visit Provider Nurse Practitioner Family
DX: R06.02 Shortness of breath (principal); I25.10 Atherosclerotic heart disease of native coronary artery without angina pectoris
CPT/HCPCS: 78452; 93017; A9500; J2405; J2785

== ENCOUNTER 2021-12-26 10:39 | Emergency (ER) | payer MEDICARE, BC, SELFPAY ==
[2021-12-26 11:30] VITALS: BP 122/76; PULSE 71; RESP 16; TEMP 36.7; O2SAT 98; BMI 27.4
--- NOTE | 2021-12-26 11:44 | ED_ITS ---
HPI - SOB/Dyspnea General: Chief Complaint: Shortness of Breath/Dyspnea Stated Complaint: sob Time Seen by Provider: 12/26/21 10:56 History of Present Illness: HPI Narrative: Ms Teixeira is a 71-year-old lady with complex past medical history including hypertension, hyperlipidemia, hypothyroidism, history of CABG x3 and subsequent PCI who presents to the emergency department due to shortness of breath. Onset of symptoms was 2 evenings ago and subacute. She did note fairly significant worsening with lying flat. She contacted her senior assistant manager in [place] who gave her a one-time dose of Lasix 40 mg which she felt like may have improved however symptoms recurred. She does have mild associated cough. She occasionally gets short sharp pains in her chest without known specific provoking factors. No other typical cardiac features. She has not noticed weight gain or peripheral edema. Overall the course of symptoms has persisted. Intensity is moderate. Denies frequent history of similar. No other specific changes in health, exacerbating, relieving factors identified. Pertinent past history: congestive heart failure Onset (ago): day(s) Timing: progressively worsening Severity: moderate Exacerbating factors: lying flat Relieving factors: nothing Associated symptoms: Reports no associated symptoms Treatment prior to arrival: other Review of Systems General: Reports: 10 or more systems reviewed and unremarkable except in HPI and below PFSH ED PFSH: Medical History Atherosclerotic heart disease [place] coronary artery w/angina pectoris Benign essential HTN Dyslipidemia (high LDL; low HDL) Elevated troponin Fibromyalgia On as needed hydrocodone and baclofen Hyperlipidemia Not currently on treatment Hypothyroid Migraine Non-ST elevated myocardial infarction (non-STEMI) Ovarian cancer Treated with hysterectomy with salpingo-oophorectomy Uncontrolled type 2 diabetes with neuropathy UTI (urinary tract infection) Surgical History H/O: hysterectomy History of tonsillectomy Hx of appendectomy Hx of cholecystectomy Status post aorto-coronary artery bypass graft Family History Sister Cancer uterine/cervix CAD (coronary artery disease) Diabetes Mother Cancer cervix Father CAD (coronary artery disease) Brother CAD (coronary artery disease) Diabetes Grandmother Diabetes Denies family history of Clotting disorder Dementia Chronic kidney disease (CKD) Suicide Anesthesia complication Bleeding disorder Lung disease Stroke Social History Smoking and tobacco status: former smoker Alcohol intake: never Lives independently: Yes Household members: none Additional social history: Smoked for few years in her 20s Female Reproductive History: Para: 2 Physical Exam Const: COMMON NORMALS: alert GENERAL APPEARANCE: cooperative and well developed HENMT: COMMON NORMALS: normocephalic and atraumatic HEAD & SCALP: normocephalic and atraumatic THROAT: posterior oropharynx normal Eye: COMMON NORMALS: conjunctivae normal CONJUNCTIVA: Yes conjunctivae normal SCLERA: sclerae normal Neck/C-Spine: COMMON NORMALS: supple GENERAL: Yes trachea midline Resp: COMMON NORMALS: normal respiratory effort and clear to auscultation bilaterally EFFORT & INSPECTION: Yes able to speak in complete sentences AUSCULTATION: clear to auscultation bilaterally Cardio: COMMON NORMALS: regular rate and regular rhythm RATE: regular rate RHYTHM: regular rhythm GI: COMMON NORMALS: Soft to palpation PALPATION: Yes Soft to palpation and No Tenderness to palpation present (GI) PERCUSSION: normal to percussion Extremity: GENERAL: Yes normal exam except as noted and No edema Neuro: COMMON NORMALS: moves all extremities SENSORIUM/ORIENTATION: Yes alert and No Orientation impaired Psych: COMMON NORMALS: mental status grossly normal and Normal thought process present THOUGHT PROCESS: Normal thought process present Course ED course: - Patient was seen and evaluated by me at bedside - Patient placed on cardiac monitors, IV access obtained - Initial evaluation notable for exam as above, no evidence of volume overload - Labs notable for no leukocytosis, normal hemoglobin. Metabolic panel without acute electrolyte derangement. Glucose mildly elevated. Free T4 is elevated with low TSH, patient is not tachycardic, no evidence of thyroid storm or high- output heart failure. Covid negative - Imaging notable for unremarkable x-ray. COPD is mentioned however in discussion with the patient no history of smoking, no known diagnosis of COPD, no PFTs to support diagnosis. Clinical history is inconsistent with COPD exacerbation. - Patient declined repeat troponin. Discuss reasoning for need for repeat troponin. Patient understands and declines repeat. - Upon serial reexamination after treatment the patient was similar. - Based on patient history, evaluation, labs, and imaging as interpreted the most likely cause of the patient's condition is shortness of breath of unclear etiology - The results of ED evaluation were discussed with the patient including prescriptions and/or symptomatic cares (if applicable) including appropriate and responsible use, followup plan, and return precautions. The patient verbalized understanding and felt safe for discharge. - Patient discharged in satisfactory condition. Note: Click bubbles or prepopulated xavier in note writing are used for assistance with data collection and billing and are inherently more limited than narrative and other text portions of this note. Please use narrative for additional clin ical history and defer to narrative/free test for any case of contradictory information. If information appears in only free text or click bubble it should be considered present or absent as reported. Please contact note typewriter ribbon winder for clarifications of clinical information or contradictory information. MDM is a brief summary, contradictory or erroneous seeming information should be clarified and full note should be reviewed. Vital Signs: Vital signs: Vital Signs Temperature 98.1 F 12/26/21 11:30 Pulse Rate 76 12/26/21 14:33 Respiratory Rate 19 H 12/26/21 14:33 Blood Pressure 121/73 12/26/21 14:33 Pulse Oximetry 97 12/26/21 14:33 MDM - SOB/Dyspnea Medical Decision Making 71-year-old lady with history of CAD with history of CABG and PCI presenting with shortness of breath for 2 days. No other typical infectious symptoms. Does have mild orthopnea and improved with 1 dose of Lasix however subsequently returned. No evidence of volume overload on ED evaluation. Etiology of symptoms is unclear. Satisfactory for close PCP follow-up. Medical Records I reviewed the patient's medical records. Lab Data I reviewed the patient's lab results. : 12/26/21 11:22 12/26/21 11:22 Labs/Radiology: Radiology Impressions Chest X-Ray 12/26/21 11:49 IMPRESSION: 1. Stable sternotomy. 2. Stable COPD . Laboratory Results WBC 7.1 10^3/uL (4.0-10.0) 12/26/21 11:22 RBC 4.18 10^6/uL (4.1-5.3) 12/26/21 11:22 Hgb 12.6 g/dL (11.5-15.3) 12/26/21 11:22 Hct 39.3 % (37.0-47.0) 12/26/21 11:22 MCV 94.0 fl (81-99) 12/26/21 11:22 MCH 30.1 pg (28.0-34.0) 12/26/21 11:22 MCHC 32.1 g/dL (30.0-36.0) 12/26/21 11:22 RDW 12.0 % (12.1-15.1) L 12/26/21 11:22 Plt Count 273 10^3/cmm (130-400) 12/26/21 11:22 MPV 10.0 fL (7.4-10.4) 12/26/21 11:22 Neut % (Auto) 65.0 % 12/26/21 11:22 Lymph % (Auto) 23.2 % 12/26/21 11:22 Haines % (Auto) 7.6 % 12/26/21 11:22 Eos % (Auto) 3.0 % 12/26/21 11:22 Baso % (Auto) 0.8 % 12/26/21 11:22 Neut # (Auto) 4.62 10^3/uL (1.8-7.7) 12/26/21 11:22 Lymph # (Auto) 1.7 10^3/uL (0.8-4.8) 12/26/21 11:22 Haines # (Auto) 0.5 10^3/uL (0.2-0.9) 12/26/21 11:22 Eos # (Auto) 0.2 10^3/uL (0.0-0.8) 12/26/21 11:22 Baso # (Auto) 0.1 10^3/uL (0.0-0.1) 12/26/21 11:22 Nucleated RBC % (auto) 0 % 12/26/21 11:22 Nucleated RBCs # 0.0 /100WBC 12/26/21 11:22 Sodium 138 mmol/L (136-145) 12/26/21 11:22 Potassium 4.2 mmol/L (3.5-5.1) 12/26/21 11:22 Chloride 104 mmol/L (98-107) 12/26/21 11:22 Carbon Dioxide 23 mmol/L (22-29) 12/26/21 11:22 Anion Gap 15.2 (5-19) 12/26/21 11:22 BUN 18 mg/dL (8-23) 12/26/21 11:22 Creatinine 0.9 mg/dL (0.5-0.9) 12/26/21 11:22 GFR Calculation 61.9 mL/min (90-130) L 12/26/21 11:22 Glucose 237 mg/dL (65-115) H 12/26/21 11:22 Calculated Osmolality 296 mOsm/kg (285-295) H 12/26/21 11:22 Calcium 8.8 mg/dL (8.5-10.5) 12/26/21 11:22 Total Bilirubin 0.4 mg/dL (0.15-1.2) 12/26/21 11:22 AST 11 U/L (0-32) 12/26/21 11:22 ALT 9 U/L (0-33) 12/26/21 11:22 Alkaline Phosphatase 120 IU/L (35-105) H 12/26/21 11:22 Troponin T Baseline 15 ng/L (0-10) H 12/26/21 11:22 NT-Pro-B Natriuret Pep 144 pg/mL (0-125) H 12/26/21 11:22 Total Protein 5.9 g/dL (6.6-8.7) L 12/26/21 11:22 Albumin 4.0 g/dL (3.5-5.2) 12/26/21 11:22 Globulin 1.9 g/dL (1.3-4.6) 12/26/21 11:22 Procalcitonin 0.05 ng/mL (0-0.5) 12/26/21 11:22 TSH 0.02 uIU/mL (0.27-4.20) L 12/26/21 11:22 Free T4 2.27 ng/dL (0.82-1.77) H 12/26/21 11:22 SARS-CoV-2 Ag (Rapid) Negative (Negative) 12/26/21 12:35 EKG Data EKG 1: I personally reviewed and interpreted this EKG as follows: EKG Interpretation Date: 12/26/21 EKG interpretation time: 11:03 Interpretation: Twelve-lead EKG shows a regular rhythm at a rate of 69. IA interval 151, QRS duration 88, QTc 427. Normal axis. Interpretation: Sinus rhythm. Discharge Plan Discharge Patient Disposition: Home Clinical Impression: Shortness of breath Condition: Stable Prescriptions: No Action ondansetron HCl [Zofran] 4 mg tablet 4 mg PO Q6H PRN (Reason: nausea and vomiting) Qty: 30 1RF hydrocodone-acetaminophen 10-325 mg tablet 1 tab PO Q6H PRN0RF (DME) blood-glucose meter Misc See Rx Instructions .Route Qty: 1 0RF Rx Instructions: Check BS 4 times a day. (DME) blood sugar diagnostic Strip See Rx Instructions .Route Qty: 100 3RF Rx Instructions: Check Bs 4 times a day. (DME) lancets 31 gauge misc See Rx Instructions .Route Qty: 100 3RF Rx Instructions: Check BS 4 times a day. glimepiride 4 mg tablet 4 mg PO BID@07,18 Qty: 180 3RF Rx Instructions: Take one tablet by mouth twice a day. Lantus Solostar U-100 Insulin 100 unit/mL (3 mL) insulin pen 12 unit SUBCUT QAM Qty: 15 3RF Rx Instructions: Inject 12 units subcut every day. Max dose of 12 units. (DME) OneTouch Ultra Test Strip See Rx Instructions .Route Qty: 360 3RF Rx Instructions: test blood sugar 4 times day nitroglycerin 0.4 mg tablet, sublingual 0.4 mg sublingual Q5M PRN (Reason: chest pain) Qty: 50 5RF ranolazine 500 mg tablet extended release 12 hr See Rx Instructions .ROUTE .COMPLEX Qty: 180 3RF Dose Instruction: TAKE 1 TABLET BY MOUTH TWICE DAILY Rx Instructions: TAKE 1 TABLET BY MOUTH TWICE DAILY prasugrel [Effient] 10 mg tablet 10 mg PO DAILY Qty: 90 2RF (DME) pen needle, diabetic [BD Ultra-Fine Short Pen Needle] 31 gauge x 5/16 needle See Rx Instructions .Route Qty: 100 3RF Rx Instructions: As directed levothyroxine 175 mcg tablet 175 mcg PO QAM 0RF zolpidem 10 mg tablet 10 mg PO BEDTIME PRN (Reason: Sleep) 0RF atorvastatin 40 mg tablet 40 mg PO DAILY@07 0RF isosorbide mononitrate 30 mg tablet extended release 24 hr 30 mg PO DAILY@07 0RF aspirin 81 mg Tablet,Delayed Release (Dr/Ec) 81 mg PO DAILY@07 0RF pantoprazole 20 mg tablet,delayed release (DR/EC) 20 mg PO DAILY 0RF lisinopril 10 mg tablet 10 mg PO QAM 0RF Discharge Orders: Discharge ED (Routine); Ordered 12/26/21 Ordered By: Fernando Locke Referrals: William Chan MD [Primary Care Provider] - Discharge Diet: Usual diet Discharge Activity: Resume usual activity Patient Instructions: Shortness of Breath (ED) Activity Restrictions/Additional Instructions: Thank you for visiting the emergency department. You were seen and evaluated for shortness of breath. The exact cause of your symptoms is unclear. I do not see evidence of pneumonia or other infection. Your electrolytes are normal. Your blood glucose was mildly elevated, I do not see evidence of this causing significant stress on your body. Your TSH was low and free T4 is elevated. Your thyroid hormone likely needs adjustment. Please follow-up with your primary care provider regarding these issues. Please follow-up with your senior assistant manager. Your troponin was mildly elevated. As discussed, without repeat, I do not have a way of ensuring that you are not having a heart attack however you are choosing to defer this at this time. Please return to the emergency department for worsening symptoms, shortness of breath, chest pain, or anything else that you are concerned about and feel needs emergency department evaluation. Coding Level of Care Code ED Airline Radio Operator for Dev Flood Exam Comprehensive
--- NOTE | 2021-12-26 11:49 | ECG_ITS ---
[facility] Test Date: 2021-12-26 Pat Name: Yasmani Teixeira Department: Room: Gender: Female Internal Affairs Investigator: : 1950 Requested By: Fernando Locke Order Number: [id number] Ryder MD: Nguyen Swanson M.D. Measurements Intervals [place] Rate: 69 P: 58 OK: 151 QRS: 19 QRSD: 88 T: 64 QT: 398 QTc: 427 Interpretive Statements SINUS RHYTHM Compared to ECG 04/16/2021 07:36:11 No significant changes Electronically Signed On 12-27-2021 17:01:27 MEDICAL DRIVER by Nguyen Swanson M.D. [id number]
--- NOTE | 2021-12-26 11:49 | XRR_ITS ---
PROCEDURE INFORMATION: Exam: XR Chest Exam date and time: 12/26/2021 11:49 AM Age: 71 years old Clinical indication: Shortness of breath; Prior surgery; Additional info: SOB TECHNIQUE: Imaging protocol: XR of the chest. Views: 1 view. COMPARISON: CR XR chest 1V portable [id number] 02/26/2021 2:32 PM FINDINGS: Lungs: Stable COPD . Pleural spaces: Unremarkable. No pleural effusion. No pneumothorax. Heart/Mediastinum: Unremarkable. No cardiomegaly. Bones/joints: Stable sternotomy. XR/XR chest 1V portable [id number] IMPRESSION: 1. Stable sternotomy. 2. Stable COPD .
[2021-12-26 11:58] LABS: Basophils # 0.1 10^3/uL (0.0-0.1); Basophils % 0.8 %; Eosinophils # 0.2 10^3/uL (0.0-0.8); Hematocrit 39.3 % (37.0-47.0); Hemoglobin 12.6 g/dL (11.5-15.3); Lymphocytes # 1.7 10^3/uL (0.8-4.8); Lymphocytes % 23.2 %; Mean Corpuscular HGB Conc 32.1 g/dL (30.0-36.0); Mean Corpuscular Hemoglobin 30.1 pg (28.0-34.0); Monocytes # 0.5 10^3/uL (0.2-0.9); Monocytes % 7.6 %; Neutrophils # 4.62 10^3/uL (1.8-7.7); Nucleated Red Blood Cells % 0 %; Platelet Count 273 10^3/cmm (130-400); Red Blood Count 4.18 10^6/uL (4.1-5.3); White Blood Count 7.1 10^3/uL (4.0-10.0)
[2021-12-26 12:11] LABS: Troponin(5th) Baseline 15 ng/L (0-10)
[2021-12-26 12:18] LABS: NT Pro B Type Natriuretic Pept 144 pg/mL (0-125); Procalcitonin 0.05 ng/mL (0-0.5); Thyroid Stimulating Hormone 0.02 uIU/mL (0.27-4.20)
[2021-12-26 12:29] LABS: Alanine Aminotransferase 9 U/L (0-33); Alkaline Phosphatase 120 IU/L (35-105); Anion Gap 15.2 (5-19); Aspartate Amino Transferase 11 U/L (0-32); Blood Urea Nitrogen 18 mg/dL (8-23); Calcium 8.8 mg/dL (8.5-10.5); Carbon Dioxide 23 mmol/L (22-29); Chloride 104 mmol/L (98-107); Globulin 1.9 g/dL (1.3-4.6); Glomerular Filtration Rate 61.9 mL/min (90-130); Glucose 237 mg/dL (65-115); Osmolality Calculated 296 mOsm/kg (285-295); Potassium 4.2 mmol/L (3.5-5.1); Sodium 138 mmol/L (136-145); Total Bilirubin 0.4 mg/dL (0.15-1.2); Total Protein 5.9 g/dL (6.6-8.7)
[2021-12-26 13:35] LABS: Free T4 Free Thyroxine 2.27 ng/dL (0.82-1.77)
[2021-12-26 13:46] LABS: SARS Covid-2 Antigen Negative (Negative)
[2021-12-26 14:33] VITALS: BP 121/73; PULSE 76; RESP 19; O2SAT 97
--- NOTE | 2021-12-26 14:59 | PC.NURSE ---
patient discharged to home- verbalizes understanding of all instructions and follow ups
== END 2021-12-26 15:04 | disposition home or self-care (01) ==
PROVIDERS: Emergency Provider Emergency Medicine; PCP Family Medicine
DX: R06.02 Shortness of breath (principal); Z79.84 Long term (current) use of oral hypoglycemic drugs; Z79.4 Long term (current) use of insulin; Z79.82 Long term (current) use of aspirin; I25.10 Atherosclerotic heart disease of native coronary artery without angina pectoris; I10 Essential (primary) hypertension; E78.5 Hyperlipidemia, unspecified; I25.2 Old myocardial infarction; E11.9 Type 2 diabetes mellitus without complications; Z85.43 Personal history of malignant neoplasm of ovary; Z95.1 Presence of aortocoronary bypass graft; Z87.891 Personal history of nicotine dependence; Z20.822 Contact with and (suspected) exposure to COVID-19
CPT/HCPCS: 71045; 80053; 83880; 84145; 84439; 84443; 84484; 85025; 87426; 93005; 99283

== ENCOUNTER → 2021-12-30 13:41 | Outpatient (BNVA) | payer MEDICARE, BC, SELFPAY | PROVIDERS: PCP Family Medicine; Visit Provider Internal Medicine | DX: E11.65 Type 2 diabetes mellitus with hyperglycemia (principal); E11.59 Type 2 diabetes mellitus with other circulatory complications; M79.7 Fibromyalgia; E11.40 Type 2 diabetes mellitus with diabetic neuropathy, unspecified; E03.9 Hypothyroidism, unspecified; R79.89 Other specified abnormal findings of blood chemistry; I25.10 Atherosclerotic heart disease of native coronary artery without angina pectoris; E78.2 Mixed hyperlipidemia; Z79.4 Long term (current) use of insulin; Z87.891 Personal history of nicotine dependence | CPT/HCPCS: 99214 ==

== ENCOUNTER → 2022-03-23 15:10 | Outpatient (BNVA) | payer MEDICARE, BC, SELFPAY | PROVIDERS: PCP Family Medicine; Visit Provider Family Medicine | DX: N39.0 Urinary tract infection, site not specified (principal) | CPT/HCPCS: 81000; 87086 ==

== ENCOUNTER → 2022-09-23 14:03 | Outpatient (BNVA) | payer MEDICARE, BC, SELFPAY | PROVIDERS: PCP Family Medicine; Visit Provider Family Medicine | DX: E78.2 Mixed hyperlipidemia (principal); E11.59 Type 2 diabetes mellitus with other circulatory complications; I25.10 Atherosclerotic heart disease of native coronary artery without angina pectoris; E11.65 Type 2 diabetes mellitus with hyperglycemia; E03.9 Hypothyroidism, unspecified; M79.7 Fibromyalgia | CPT/HCPCS: 80053; 84443; 85025 ==

== ENCOUNTER → 2022-10-22 10:43 | Outpatient (BNVA) | payer MEDICARE, BC, SELFPAY | PROVIDERS: PCP Family Medicine; Visit Provider Family Medicine | DX: Z01.89 Encounter for other specified special examinations (principal); I20.0 Unstable angina; E78.2 Mixed hyperlipidemia | CPT/HCPCS: 80048; 80061; 84450; 84460; 85027 ==

== ENCOUNTER 2022-11-15 08:50 | Emergency (ER) | payer MEDICARE, BC, SELFPAY ==
--- NOTE | 2022-11-15 08:53 | ECG_ITS ---
[facility] Test Date: 2022-11-15 Pat Name: Yasmani Teixeira Department: Room: Gender: Female Composition Professor: : 1950 Requested By: Slava Grijalva Order Number: [id number] Ryder MD: Nguyen Swanson M.D. Measurements Intervals [place] Rate: 79 P: 55 TN: 155 QRS: 5 QRSD: 89 T: 65 QT: 378 QTc: 434 Interpretive Statements SINUS RHYTHM NONSPECIFIC T-WAVE ABNORMALITY Compared to ECG 12/26/2021 10:57:06 T-wave abnormality now present Electronically Signed On 11-15-2022 15:30:34 CRATE MAKER by Nguyen Swanson M.D. [id number]
--- NOTE | 2022-11-15 08:54 | XR_ITS ---
WS: [id number] CHEST XRAY TECHNIQUE: Portable chest. CLINICAL INFORMATION: dyspnea/cough COMPARISON: CT 12/26/21 FINDINGS: Heart: Cardiomegaly. Sternotomy. Mediastinal clips. Lungs: Lungs are clear. No consolidation or pleural effusion. Bones: Mild thoracic curve. Osteopenia. XR/XR chest 1V portable [id number] IMPRESSION: No acute chest findings.
[2022-11-15 08:56] VITALS: BP 97/62; PULSE 111; RESP 18; TEMP 37.2; O2SAT 92
--- NOTE | 2022-11-15 09:43 | ED_ITS ---
HPI - SOB/Dyspnea General: Chief Complaint: Shortness of Breath/Dyspnea Stated Complaint: SOB Time Seen by Provider: 11/15/22 08:53 History of Present Illness: HPI Narrative: Patient is a 72-year-old female that presents to the emergency department with 10-day history of influenza. Patient reports that she has developed pain with inspiration and palpation along the chest wall. Patient does report shortness of breath and malaise. Patient has not taken any [id number] medications except for the occasional aspirin. Patient has medical history that includes vascular disease, diabetes, hypertension, GERD, hypothyroid Associated symptoms: Reports nausea and vomiting; Deny abdominal pain, chest congestion, chest pain, dizziness, extremity pain, fever(s), orthopnea, palpitations, polydipsia or polyuria Review of Systems General: Reports: 10 or more systems reviewed and unremarkable except in HPI and below Const: Reports: change in appetite, fatigue and malaise; Denies: fever(s), chills or change in weight Eyes: Denies: change in vision, eye discomfort, eye discharge or eye redness ENMT: Denies: throat pain, enlarged tonsils, odynophagia, hoarseness, ear or mastoid pain, ear discharge, change in hearing, tinnitus, nasal discharge, nasal congestion, post nasal drip or sinus pain Card: Reports: dyspnea on exertion; Denies: chest pain, palpitations, irregular heart rhythm, edema, orthopnea or leg pain with exertion Resp: Denies: dyspnea, productive cough, non-productive cough, wheezing, stridor or chest congestion GI: Reports: nausea and vomiting; Denies: abdominal pain, dysphagia, diarrhea, constipation, bloating, GI cramping or hematochezia : Denies: flank pain, difficulty voiding, dysuria, urinary frequency, urinary urgency, urinary hesitancy, oliguria or hematuria Musc: Reports: other (Reports chest wall pain); Denies: neck pain, back pain, extremity pain, joint pain, joint swelling, joint redness, joint warmth or muscle weakness Skin/Breast: Denies: rash, pruritus, erythema, photosensitivity or new lesions Neuro: Denies: headache(s), numbness in extremities, weakness in extremities, sensory changes, lack of coordination, difficulty walking, frequent falls, dizziness, confusion, Slurred speech present, difficulty communicating thoughts, seizure-like activity or involuntary movements Endo: Denies: polyuria, polydipsia or tired all the time Cristóbal/Lymph: Denies: easy bruising or easy bleeding PFSH ED 2 PFSH: Medical History Atherosclerotic heart disease [place] coronary artery w/angina pectoris Benign essential HTN Dyslipidemia (high LDL; low HDL) Elevated troponin Fibromyalgia On as needed hydrocodone and baclofen Hyperlipidemia Not currently on treatment Hypothyroid Migraine Non-ST elevated myocardial infarction (non-STEMI) Ovarian cancer Treated with hysterectomy with salpingo-oophorectomy Uncontrolled type 2 diabetes with neuropathy UTI (urinary tract infection) Surgical History H/O: hysterectomy History of tonsillectomy Hx of appendectomy Hx of cholecystectomy Status post aorto-coronary artery bypass graft Family History Sister Cancer uterine/cervix CAD (coronary artery disease) Diabetes Mother Cancer cervix Father CAD (coronary artery disease) Brother CAD (coronary artery disease) Diabetes Grandmother Diabetes Denies family history of Clotting disorder Dementia Chronic kidney disease (CKD) Suicide Anesthesia complication Bleeding disorder Lung disease Stroke Social History Smoking and tobacco status: former smoker Alcohol intake: never Lives independently: Yes Household members: none Additional social history: Smoked for few years in her 20s Female Reproductive History: Para: 2 Physical Exam Const: COMMON NORMALS: no acute distress, average body habitus, patient oriented x3, no limitations, healthy appearing, alert and well nourished GENERAL APPEARANCE: cooperative, comfortable and well developed; not in distress and not anxious ORIENTATION/CONSCIOUSNESS: Yes awake, Yes oriented to person, Yes oriented to place and Yes oriented to time HENMT: COMMON NORMALS: normocephalic, atraumatic, hearing grossly normal bilaterally, external ears normal, EAC's normal, TM's normal bilaterally, Normal external nose present and Normal nasal mucous membranes and turbinates present HEAD & SCALP: normal to inspection, normocephalic and atraumatic FACE & SINUS: normal facial exam and face symmetric NOSE: Normal external nose present, Normal nares present and Normal nasal mucous membranes and turbinates present GENERAL EAR: hearing not grossly impaired EXTERNAL EAR: Yes external ears normal and Yes no periauricular adenopathy EXTERNAL AUDITORY CANAL: EAC's normal TYMPANIC MEMBRANE: TM's normal bilaterally MOUTH: Normal oral and palatal mucosa present, lip normal, tongue normal and Normal salivary glands and ducts present THROAT: posterior oropharynx normal, tonsils normal and uvula midline Eye: COMMON NORMALS: Equal, round and reactive pupils present, EOMs intact bilaterally, conjunctivae normal, no scleral icterus and no papilledema GENERAL EYE: appearance normal, both eyes and all related structures ALIGNMENT: Yes alignment normal PERIORBITAL: periorbital findings normal EYELID: eyelids normal CONJUNCTIVA: Yes conjunctivae normal PUPIL: Yes Equal, round and reactive pupils present DIRECT OPHTHALMOSCOPY: Yes no papilledema Neck/C-Spine: COMMON NORMALS: full ROM, supple, no meningeal signs and no JVD GENERAL: Yes normal visual inspection CERVICAL SPINE: Yes cervical ROM normal Lymph: LYMPHATIC: no lymphadenopathy noted Chest: COMMONS NORMALS: normal inspection of the chest Breast/axilla inspection: Yes no chest deformity, asymmetry, normal contours, no nodules, masses, tenderness Resp: COMMON NORMALS: normal respiratory effort, No retractions, No use of accessory muscles and clear to auscultation bilaterally EFFORT & INSPECTION: Yes able to speak in complete sentences, Yes symmetric chest movement, No abnormal respiratory pattern, No tachypneic and No respiratory distress AUSCULTATION: clear to auscultation bilaterally Cardio: COMMON NORMALS: no JVD, regular rate, regular rhythm and Peripheral pulses 2+ throughout RATE: regular rate RHYTHM: regular rhythm PERIPHERAL PULSES: Peripheral pulses 2+ throughout GI: COMMON NORMALS: Normal to inspection, nondistended, normoactive bowel sounds present, Soft to palpation and non-tender INSPECTION: Yes normal to inspection PALPATION: Yes Soft to palpation : COMMON NORMALS: Yes no CVA tenderness BLADDER/KIDNEY EXAM: Yes no CVA tenderness and Yes CVA tenderness Back/Pelvis: COMMON NORMALS: no CVA tenderness, thoracic and lumbar spine normal to inspection, no thoracic nor lumbar tenderness, thoraco-lumbar ROM normal and straight leg raise negative bilaterally GENERAL BACK: Yes CVA tenderness and No ecchymosis THORACIC SPINE/UPPER BACK: Yes normal to inspection LUMBAR SPINE/LOWER BACK: Yes normal to inspection and Yes straight leg raise negative bilaterally Extremity: COMMON NORMALS: normal to inspection, full ROM and capillary refill normal GENERAL: Yes normal exam except as noted Neuro: COMMON NORMALS: patient oriented x3 SENSORIUM/ORIENTATION: Yes alert, Yes oriented to person, Yes oriented to place and Yes oriented to time MENINGEAL SIGNS: Yes no meningeal signs Psych: COMMON NORMALS: mental status grossly normal, Normal thought process present, cooperative, normal affect, speech normal and activity/motor behavior normal SPEECH: Yes normal speech THOUGHT PROCESS: Normal thought process present Skin: COMMON NORMALS: no rashes or lesions noted, no wounds, turgor normal, no jaundice, no petechiae and no mottling GENERAL SKIN EXAM: no rashes or lesions noted and turgor normal Course Vital Signs: Vital signs: Vital Signs Temperature 98.9 F 11/15/22 08:56 Pulse Rate 111 H 11/15/22 08:56 Respiratory Rate 18 11/15/22 08:56 Blood Pressure 123/57 11/15/22 11:02 Pulse Oximetry 93 11/15/22 11:02 Oxygen Delivery Me thod 11/15/22 08:56 MDM - SOB/Dyspnea Medical Decision Making Patient was evaluated in room 12. Patient arrives with 10-day history of influenza. Has not sought any previous treatment. Patient does have increased pain with inspiration that did improve with Toradol injection. Patient was also treated with Zofran which resolved nausea. Patient has not sought any other treatment. Differential diagnosis includes influenza, food, pneumonia, Differential Diagnosis Likely congestive heart failure and community acquired pneumonia Medical Records Patient has diagnosis of influenza, 10 days ago. She reports continued symptoms and groin malaise. Differential diagnosis includes influenza, COVID, pneumonia, bronchitis Lab Data 11/15/22 09:36 11/15/22 09:36 Labs/Radiology: Radiology Impressions Chest X-Ray 11/15/22 08:54 IMPRESSION: No acute chest findings. Laboratory Results WBC 3.9 10^3/uL (4.0-10.0) L 11/15/22 09:36 RBC 4.37 10^6/uL (4.1-5.3) 11/15/22 09:36 Hgb 13.2 g/dL (11.5-15.3) 11/15/22 09:36 Hct 40.4 % (37.0-47.0) 11/15/22 09:36 MCV 92.4 fl (81-99) 11/15/22 09:36 MCH 30.2 pg (28.0-34.0) 11/15/22 09:36 MCHC 32.7 g/dL (30.0-36.0) 11/15/22 09:36 RDW 12.5 % (12.1-15.1) 11/15/22 09:36 Plt Count 152 10^3/cmm (130-400) 11/15/22 09:36 MPV 10.5 fL (7.4-10.4) H 11/15/22 09:36 Neut % (Auto) 65.4 % 11/15/22 09:36 Lymph % (Auto) 23.0 % 11/15/22 09:36 [place] % (Auto) 10.5 % 11/15/22 09:36 Eos % (Auto) 0.5 % 11/15/22 09:36 Baso % (Auto) 0.3 % 11/15/22 09:36 Neut # (Auto) 2.57 10^3/uL (1.8-7.7) 11/15/22 09:36 Lymph # (Auto) 0.9 10^3/uL (0.8-4.8) 11/15/22 09:36 [place] # (Auto) 0.4 10^3/uL (0.2-0.9) 11/15/22 09:36 Eos # (Auto) 0.0 10^3/uL (0.0-0.8) 11/15/22 09:36 Baso # (Auto) 0.0 10^3/uL (0.0-0.1) 11/15/22 09:36 Nucleated RBC % (auto) 0 % 11/15/22 09:36 Nucleated RBCs # 0.0 /100WBC 11/15/22 09:36 Sodium 131 mmol/L (136-145) L 11/15/22 09:36 Potassium 4.1 mmol/L (3.5-5.1) 11/15/22 09:36 Chloride 98 mmol/L (98-107) 11/15/22 09:36 Carbon Dioxide 23 mmol/L (22-29) 11/15/22 09:36 Anion Gap 14.1 (5-19) 11/15/22 09:36 BUN 10 mg/dL (8-23) 11/15/22 09:36 Creatinine 0.8 mg/dL (0.5-0.9) 11/15/22 09:36 GFR Calculation Not Reportable 11/15/22 09:36 Glucose 251 mg/dL (65-115) H 11/15/22 09:36 Calculated Osmolality 280 mOsm/kg (285-295) L 11/15/22 09:36 Calcium 8.5 mg/dL (8.5-10.5) 11/15/22 09:36 Total Bilirubin 0.3 mg/dL (0.15-1.2) 11/15/22 09:36 AST 24 U/L (0-32) 11/15/22 09:36 ALT 16 U/L (0-33) 11/15/22 09:36 Alkaline Phosphatase 99 U/L (35-105) 11/15/22 09:36 Total Protein 6.4 g/dL (6.6-8.7) L 11/15/22 09:36 Albumin 3.4 g/dL (3.5-5.2) L 11/15/22 09:36 Globulin 3.0 g/dL (1.3-4.6) 11/15/22 09:36 Imaging Data CXR: My impression: No pneumonia Radiologist's impression: No acute findings Discharge Plan Discharge Patient Disposition: Home Clinical Impression: Influenza Condition: Stable Prescriptions: No Action (DME) blood-glucose meter Misc See Rx Instructions .Route Qty: 1 0RF Rx Instructions: Check BS 4 times a day. (DME) blood sugar diagnostic Strip See Rx Instructions .Route Qty: 100 3RF Rx Instructions: Check Bs 4 times a day. (DME) lancets 31 gauge misc See Rx Instructions .Route Qty: 100 3RF Rx Instructions: Check BS 4 times a day. glimepiride 4 mg tablet 4 mg PO BID@07,18 Qty: 180 3RF Rx Instructions: Take one tablet by mouth twice a day. Lantus Solostar U-100 Insulin 100 unit/mL (3 mL) insulin pen 12 unit SUBCUT QAM Qty: 15 3RF Rx Instructions: Inject 12 units subcut every day. Max dose of 12 units. (DME) OneTouch Ultra Test Strip See Rx Instructions .Route Qty: 360 3RF Rx Instructions: test blood sugar 4 times day nitroglycerin 0.4 mg tablet, sublingual 0.4 mg sublingual Q5M PRN (Reason: chest pain) Qty: 50 5RF amoxicillin-pot clavulanate [Augmentin] 500-125 mg tablet 1 tab PO TID Qty: 30 0RF prednisone 20 mg tablet 20 mg PO DAILY Qty: 5 0RF Rx Instructions: take with food. Repatha SureClick 140 mg/mL pen injector SUBCUT pantoprazole 20 mg tablet,delayed release (DR/EC) 20 mg PO DAILY Qty: 90 11RF ondansetron HCl 4 mg tablet 4 mg PO Q6H PRN (Reason: nausea and vomiting) Qty: 30 1RF zolpidem 10 mg tablet 10 mg PO BEDTIME PRN (Reason: Sleep) Qty: 30 5RF ranolazine 500 mg tablet extended release 12 hr See Rx Instructions .ROUTE .COMPLEX Qty: 180 3RF Dose Instruction: TAKE 1 TABLET BY MOUTH TWICE DAILY Rx Instructions: TAKE 1 TABLET BY MOUTH TWICE DAILY prasugrel [Effient] 10 mg tablet 10 mg PO DAILY Qty: 90 2RF (DME) pen needle, diabetic [BD Ultra-Fine Short Pen Needle] 31 gauge x 5/16 needle See Rx Instructions .Route Qty: 100 3RF Rx Instructions: As directed lisinopril 10 mg tablet 10 mg PO QAM Qty: 30 0RF Rx Instructions: Must have follow-up for further refills levothyroxine 175 mcg tablet See Rx Instructions .ROUTE .COMPLEX Qty: 30 11RF Dose Instruction: TAKE 1 TABLET BY MOUTH EVERY DAY FOR HYPERTHYROID Rx Instructions: TAKE 1 TABLET BY MOUTH EVERY DAY FOR HYPERTHYROID hydrocodone-acetaminophen 10-325 mg tablet 1 tab PO BID PRN (Reason: pain) 60 Days Qty: 60 0RF atorvastatin 40 mg tablet 40 mg PO DAILY@07 isosorbide mononitrate 30 mg tablet extended release 24 hr 30 mg PO DAILY@07 aspirin 81 mg Tablet,Delayed Release (Dr/Ec) 81 mg PO DAILY@07 Discharge Orders: Discharge ED (Routine); Ordered 11/15/22 Ordered By: Mike Adams [id number] Referrals: William Chan MD [Primary Care Provider] - Discharge Diet: Advance as tolerated and Usual diet Discharge Activity: Resume usual activity and Increase activity as tolerated Patient Instructions: Opioid Safety, Pain Management, Flu Shot (Vaccine) for Adults (ED), Influenza (ED) Activity Restrictions/Additional Instructions: Tylenol as needed for body aches and fever. Please return to the emergency department for increased shortness of breath, chest pain, or worsening symptoms. Coding Level of Care Code ED [place] [employer] Overlock for Dev Flood History Expanded Problem Focused Exam Expanded Problem Focused Medical Decision Making Low Complexity
[2022-11-15] MEDS: ondansetron 2 mg/ML SDV 2 mL 4 MG IVP (09:44)
[2022-11-15 09:45] LABS: Basophils % 0.3 %; Eosinophils % 0.5 %; Hematocrit 40.4 % (37.0-47.0); Hemoglobin 13.2 g/dL (11.5-15.3); Lymphocytes # 0.9 10^3/uL (0.8-4.8); Mean Corpuscular HGB Conc 32.7 g/dL (30.0-36.0); Mean Corpuscular Hemoglobin 30.2 pg (28.0-34.0); Mean Corpuscular Volume 92.4 fl (81-99); Mean Platelet Volume 10.5 fL (7.4-10.4); Monocytes # 0.4 10^3/uL (0.2-0.9); Monocytes % 10.5 %; Neutrophils # 2.57 10^3/uL (1.8-7.7); Neutrophils % 65.4 %; Nucleated Red Blood Cells % 0 %; Platelet Count 152 10^3/cmm (130-400); Red Blood Count 4.37 10^6/uL (4.1-5.3); Red Cell Distribution Width 12.5 % (12.1-15.1); White Blood Count 3.9 10^3/uL (4.0-10.0)
[2022-11-15] MEDS: ketorolac 30 mg/mL INJ 15 MG IVP (09:48)
[2022-11-15 10:01] LABS: Alanine Aminotransferase 16 U/L (0-33); Albumin Level 3.4 g/dL (3.5-5.2); Alkaline Phosphatase 99 U/L (35-105); Anion Gap 14.1 (5-19); Aspartate Amino Transferase 24 U/L (0-32); Blood Urea Nitrogen 10 mg/dL (8-23); Calcium 8.5 mg/dL (8.5-10.5); Carbon Dioxide 23 mmol/L (22-29); Chloride 98 mmol/L (98-107); Glucose 251 mg/dL (65-115); Osmolality Calculated 280 mOsm/kg (285-295); Potassium 4.1 mmol/L (3.5-5.1); Sodium 131 mmol/L (136-145); Total Bilirubin 0.3 mg/dL (0.15-1.2); Total Protein 6.4 g/dL (6.6-8.7)
[2022-11-15 11:02] VITALS: BP 123/57; O2SAT 93
[2022-11-15 12:01] VITALS: BP 137/79; PULSE 80; O2SAT 91
== END 2022-11-15 12:04 | disposition home or self-care (01) ==
PROVIDERS: Family Medicine; Emergency Provider Nurse Practitioner; PCP Family Medicine
DX: J11.1 Influenza due to unidentified influenza virus with other respiratory manifestations (principal); Z79.84 Long term (current) use of oral hypoglycemic drugs; Z79.82 Long term (current) use of aspirin; Z79.4 Long term (current) use of insulin; Z87.891 Personal history of nicotine dependence; Z95.1 Presence of aortocoronary bypass graft; I25.10 Atherosclerotic heart disease of native coronary artery without angina pectoris; E78.5 Hyperlipidemia, unspecified; I10 Essential (primary) hypertension; I25.2 Old myocardial infarction; E11.9 Type 2 diabetes mellitus without complications; Z85.43 Personal history of malignant neoplasm of ovary
CPT/HCPCS: 71045; 80053; 85025; 93005; 96374; 96375; 99285; J1885; J2405

== ENCOUNTER → 2023-03-22 13:55 | Outpatient (BNVA) | payer MEDICARE, BC, SELFPAY | PROVIDERS: PCP Family Medicine; Visit Provider Internal Medicine | DX: E11.59 Type 2 diabetes mellitus with other circulatory complications (principal); E11.65 Type 2 diabetes mellitus with hyperglycemia; E11.40 Type 2 diabetes mellitus with diabetic neuropathy, unspecified; I25.10 Atherosclerotic heart disease of native coronary artery without angina pectoris; R79.89 Other specified abnormal findings of blood chemistry; E03.9 Hypothyroidism, unspecified; E78.2 Mixed hyperlipidemia; M79.7 Fibromyalgia; Z79.4 Long term (current) use of insulin; Z79.890 Hormone replacement therapy; Z79.84 Long term (current) use of oral hypoglycemic drugs | CPT/HCPCS: 36415; 80053; 80061; 83036; 84439; 84443; 99214 ==

== ENCOUNTER 2023-04-14 15:23 | Outpatient (CLI) | payer MEDICARE, BC, SELFPAY ==
--- NOTE | 2023-04-14 15:45 | MM_ITS ---
WS: [id number] BILATERAL 3D TOMOSYNTHESIS DIGITAL SCREENING MAMMOGRAPHY WITH CAD CLINICAL INFORMATION: SCREENING HISTORY: Screening mammogram. No current complaints. COMPARISON: 2018 TECHNIQUE: Bilateral CC and MLO views. FINDINGS: The breasts are composed of heterogeneous fibroglandular density tissue, which can limit the detectio n of small underlying mass lesions. No suspicious mass, asymmetry, calcifications, or architectural d istortion. No evidence of malignancy. A few incidental punctate calcifications. MM/[place] [id number] IMPRESSION: BI-RADS: 2-Benign FOLLOW UP: 1 Year Follow-up Recommend return to annual screening mammography.
== END 2023-04-14 15:24 | disposition home or self-care (01) ==
PROVIDERS: PCP Family Medicine; Visit Provider Family Medicine
DX: Z12.31 Encounter for screening mammogram for malignant neoplasm of breast (principal)
CPT/HCPCS: 77063; 77067

== ENCOUNTER → 2023-04-19 13:05 | Outpatient (BNVA) | payer MEDICARE, BC, SELFPAY | PROVIDERS: PCP Family Medicine; Visit Provider Family Medicine | DX: N39.0 Urinary tract infection, site not specified (principal); M19.90 Unspecified osteoarthritis, unspecified site | CPT/HCPCS: 81000; 87086 ==

== ENCOUNTER → 2023-04-20 08:16 | Outpatient (BNVA) | payer MEDICARE, BC, SELFPAY | PROVIDERS: PCP Family Medicine; Visit Provider Family Medicine | DX: M19.90 Unspecified osteoarthritis, unspecified site (principal); K21.9 Gastro-esophageal reflux disease without esophagitis; E78.2 Mixed hyperlipidemia; E11.65 Type 2 diabetes mellitus with hyperglycemia; E03.9 Hypothyroidism, unspecified; R79.89 Other specified abnormal findings of blood chemistry; I10 Essential (primary) hypertension; E78.5 Hyperlipidemia, unspecified | CPT/HCPCS: 80061; 85651; 86140; 86160; 86162; 86235; 86255; 86376 ==

== ENCOUNTER 2023-04-22 13:16 | Emergency (ER) | payer MEDICARE, BC, SELFPAY ==
[2023-04-22 13:17] VITALS: BP 97/54; PULSE 66; RESP 14; O2SAT 91
--- NOTE | 2023-04-22 13:23 | XR_ITS ---
WS: [id number] Exam: XR ankle LT min 3V* [id number] Date/Time of Exam: 04/22/2023 1:23 PM Reason For Exam: injury There are displaced fractures of the medial lateral malleolus as well as the posterior shelf of the t ibia. There is gapping of the anterior aspect of the ankle mortise. Soft tissue swelling about the an kle. XR/XR ankle LT min 3V* [id number] IMPRESSION: 1. Displaced trimalleolar fracture of the left ankle
[2023-04-22 13:33] LABS: Basophils # 0.1 10^3/uL (0.0-0.1); Basophils % 0.6 %; Eosinophils # 0.2 10^3/uL (0.0-0.8); Eosinophils % 1.9 %; Hematocrit 35.7 % (37.0-47.0); Hemoglobin 11.6 g/dL (11.5-15.3); Lymphocytes # 2.3 10^3/uL (0.8-4.8); Lymphocytes % 26.1 %; Mean Corpuscular HGB Conc 32.5 g/dL (30.0-36.0); Mean Corpuscular Hemoglobin 31.3 pg (28.0-34.0); Mean Corpuscular Volume 96.2 fl (81-99); Mean Platelet Volume 9.8 fL (7.4-10.4); Monocytes # 0.7 10^3/uL (0.2-0.9); Neutrophils # 5.38 10^3/uL (1.8-7.7); Neutrophils % 62.5 %; Nucleated Red Blood Cells % 0 %; Platelet Count 297 10^3/cmm (130-400); Red Blood Count 3.71 10^6/uL (4.1-5.3); Red Cell Distribution Width 12.7 % (12.1-15.1); White Blood Count 8.6 10^3/uL (4.0-10.0)
[2023-04-22 13:42] LABS: Glucose Point of Care 281 mg/dL (70-110)
--- NOTE | 2023-04-22 13:44 | W.ED.EXTPRO ---
HPI - Extremity Problem General: Chief complaint: Extremity Injury, Lower Stated complaint: ANKLE PAIN/ FALL Time Seen by Provider: 04/22/23 13:19 Source: patient and EMS Mode of arrival: EMS Limitations: no limitations History of Present Illness: 72-year-old female states that she had tripped and fell rolled her left ankle and obvious deformity left ankle roughly 30 minutes ago. She had severe ankle pain when EMS arrived she states that she had felt some lightheadedness after the fall and had a possible syncopal event she denies any headache or chest pain before the fall. Patient is quite sedated here she received 100 mcg of fentanyl in route and I have to arouse her to get her to awake and to answer questions at this time. 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 Benign essential HTN Dyslipidemia (high LDL; low HDL) Elevated troponin Fibromyalgia On as needed hydrocodone and baclofen Hyperlipidemia Not currently on treatment Hypothyroid Migraine Non-ST elevated myocardial infarction (non-STEMI) Ovarian cancer Treated with hysterectomy with salpingo-oophorectomy Uncontrolled type 2 diabetes with neuropathy UTI (urinary tract infection) Surgical History H/O: hysterectomy History of tonsillectomy Hx of appendectomy Hx of cholecystectomy Status post aorto-coronary artery bypass graft Family History Sister Cancer uterine/cervix CAD (coronary artery disease) Diabetes Mother Cancer cervix Father CAD (coronary artery disease) Brother CAD (coronary artery disease) Diabetes Grandmother Diabetes Denies family history of Clotting disorder Dementia Chronic kidney disease (CKD) Suicide Anesthesia complication Bleeding disorder Lung disease Stroke Social History Smoking and tobacco status: former smoker Alcohol intake: never Substance/Drug Use: never Lives independently: Yes Household members: none Additional social history: Smoked for few years in her 20s Female Reproductive History: Para: 2 Physical Exam Const: COMMON NORMALS: no acute distress, patient oriented x3 and healthy appearing OTHER: lethargic from IV pain medication HENMT: COMMON NORMALS: normocephalic and atraumatic HEAD & SCALP: normocephalic and atraumatic Eye: COMMON NORMALS: conjunctivae normal CONJUNCTIVA: Yes conjunctivae normal Neck/C-Spine: COMMON NORMALS: full ROM and supple Chest: COMMONS NORMALS: normal inspection of the chest and normal palpation of entire chest wall Resp: COMMON NORMALS: normal respiratory effort, No retractions, No use of accessory muscles and clear to auscultation bilaterally AUSCULTATION: clear to auscultation bilaterally Cardio: COMMON NORMALS: regular rate, regular rhythm and No murmurs present (Cardio) RATE: regular rate RHYTHM: regular rhythm GI: COMMON NORMALS: Normal to inspection, nondistended, normoactive bowel sounds present, Soft to palpation, non-tender and no masses PALPATION: Yes Soft to palpation Extremity: COMMON NORMALS: full ROM OTHER: Tenderness to left ankle distal pulses and sensation intact Neuro: COMMON NORMALS: patient oriented x3, moves all extremities and no focal motor deficits Psych: COMMON NORMALS: mental status grossly normal, Normal thought process present and cooperative THOUGHT PROCESS: Normal thought process present Skin: COMMON NORMALS: no rashes or lesions noted and no wounds GENERAL SKIN EXAM: no rashes or lesions noted Course Vital Signs: Vital signs: Vital Signs Pulse Rate 64 04/22/23 15:30 Respiratory Rate 14 04/22/23 13:17 Blood Pressure 113/66 04/22/23 15:30 Pulse Oximetry 95 04/22/23 15:30 Oxygen Delivery Me thod Room Air 04/22/23 13:17 MDM - Extremity (Nontraumatic) Medical Decision Making Patient presents here after a fall with an ankle fracture patient did have some hypotensive here originally along with some lethargy is likely from the 100 mcg of fentanyl she states that IV pain meds does do that to her she is now awake and alert and she feels much improved she is able answer all my questions appropriately. Lactate was normal she has no signs of sepsis EKG and CT head are normal as well. She is stable for discharge she is to follow-up with her PCP and return if worsening. Medical Records I reviewed the patient's medical records. Lab Data I reviewed the patient's lab results. 04/22/23 12:55 04/22/23 12:55 Radiology Impressions Ankle X-Ray 04/22/23 14:05 IMPRESSION: 1. Trimalleolar fracture showing improved alignment when compared to initial images performed earlier on the same day. Chest X-Ray 04/22/23 14:13 IMPRESSION: 1. No acute cardiopulmonary finding. Head CT 04/22/23 14:13 IMPRESSION: No acute intracranial abnormality. Laboratory Results WBC 8.6 10^3/uL (4.0-10.0) 04/22/23 12:55 RBC 3.71 10^6/uL (4.1-5.3) L 04/22/23 12:55 Hgb 11.6 g/dL (11.5-15.3) 04/22/23 12:55 Hct 35.7 % (37.0-47.0) L 04/22/23 12:55 MCV 96.2 fl (81-99) 04/22/23 12:55 MCH 31.3 pg (28.0-34.0) 04/22/23 12:55 MCHC 32.5 g/dL (30.0-36.0) 04/22/23 12:55 RDW 12.7 % (12.1-15.1) 04/22/23 12:55 Plt Count 297 10^3/cmm (130-400) 04/22/23 12:55 MPV 9.8 fL (7.4-10.4) 04/22/23 12:55 Neut % (Auto) 62.5 % 04/22/23 12:55 Lymph % (Auto) 26.1 % 04/22/23 12:55 [place] % (Auto) 8.0 % 04/22/23 12:55 Eos % (Auto) 1.9 % 04/22/23 12:55 Baso % (Auto) 0.6 % 04/22/23 12:55 Neut # (Auto) 5.38 10^3/uL (1.8-7.7) 04/22/23 12:55 Lymph # (Auto) 2.3 10^3/uL (0.8-4.8) 04/22/23 12:55 [place] # (Auto) 0.7 10^3/uL (0.2-0.9) 04/22/23 12:55 Eos # (Auto) 0.2 10^3/uL (0.0-0.8) 04/22/23 12:55 Baso # (Auto) 0.1 10^3/uL (0.0-0.1) 04/22/23 12:55 Nucleated RBC % (auto) 0 % 04/22/23 12:55 Nucleated RBCs # 0.0 /100WBC 04/22/23 12:55 Sodium 138 mmol/L (136-145) 04/22/23 12:55 Potassium 4.7 mmol/L (3.5-5.1) 04/22/23 12:55 Chloride 105 mmol/L (98-107) 04/22/23 12:55 Carbon Dioxide 22 mmol/L (22-29) 04/22/23 12:55 Anion Gap 15.7 (5-19) 04/22/23 12:55 BUN 20 mg/dL (8-23) 04/22/23 12:55 Creatinine 1.0 mg/dL (0.5-0.9) H 04/22/23 12:55 GFR Calculation Not Reportable 04/22/23 12:55 Glucose 280 mg/dL (65-115) H 04/22/23 12:55 POC Glucose 281 mg/dL (70-110) H 04/22/23 13:38 Calculated Osmolality 299 mOsm/kg (285-295) H 04/22/23 12:55 Calcium 8.9 mg/dL (8.5-10.5) 04/22/23 12:55 Total Bilirubin 0.5 mg/dL (0.15-1.2) 04/22/23 12:55 AST 12 U/L (0-32) 04/22/23 12:55 ALT 9 U/L (0-33) 04/22/23 12:55 Alkaline Phosphatase 83 U/L (35-105) 04/22/23 12:55 Troponin T Baseline 15 ng/L (0-10) H 04/22/23 12:55 Total Protein 6.3 g/dL (6.6-8.7) L 04/22/23 12:55 Albumin 3.9 g/dL (3.5-5.2) 04/22/23 12:55 Globulin 2.4 g/dL (1.3-4.6) 04/22/23 12:55 Discharge Plan Discharge Patient Disposition: Home Clinical Impression: Ankle fracture, left, Fall Condition: Stable Prescriptions: No Action (DME) blood-glucose meter Misc See Rx Instructions .Route Qty: 1 0RF Rx Instructions: Check BS 4 times a day. (DME) blood sugar diagnostic Strip See Rx Instructions .Route Qty: 100 3RF Rx Instructions: Check Bs 4 times a day. (DME) lancets 31 gauge misc See Rx Instructions .Route Qty: 100 3RF Rx Instructions: Check BS 4 times a day. (DME) OneTouch Ultra Test Strip See Rx Instructions .Route Qty: 360 3RF Rx Instructions: test blood sugar 4 times day nitroglycerin 0.4 mg tablet, sublingual 0.4 mg sublingual Q5M PRN (Reason: chest pain) Qty: 50 5RF prednisone 20 mg tablet 20 mg PO DAILY Qty: 5 0RF Rx Instructions: take with food. Repatha SureClick 140 mg/mL pen injector SUBCUT pantoprazole 20 mg tablet,delayed release (DR/EC) 20 mg PO DAILY Qty: 90 11RF amoxicillin-pot clavulanate [Augmentin] 500-125 mg tablet 1 tab PO TID Qty: 30 0RF hydrocodone-acetaminophen 10-325 mg tablet 1 tab PO BID PRN (Reason: pain) 60 Days Qty: 60 0RF ranolazine 500 mg tablet extended release 12 hr See Rx Instructions .ROUTE .COMPLEX Qty: 180 3RF Dose Instruction: TAKE 1 TABLET BY MOUTH TWICE DAILY Rx Instructions: TAKE 1 TABLET BY MOUTH TWICE DAILY prasugrel [Effient] 10 mg tablet 10 mg PO DAILY Qty: 90 2RF (DME) pen needle, diabetic [BD Ultra-Fine Short Pen Needle] 31 gauge x 5/16 needle See Rx Instructions .Route Qty: 100 3RF Rx Instructions: As directed lisinopril 10 mg tablet 10 mg PO QAM Qty: 30 0RF Rx Instructions: Must have follow-up for further refills levothyroxine 175 mcg tablet See Rx Instructions .ROUTE .COMPLEX Qty: 30 11RF Dose Instruction: TAKE 1 TABLET BY MOUTH EVERY DAY FOR HYPERTHYROID Rx Instructions: TAKE 1 TABLET BY MOUTH EVERY DAY FOR HYPERTHYROID promethazine-DM 6.25-15 mg/5 mL syrup 5 ml PO Q6H PRN (Reason: cough) Qty: 118 2RF Lantus Solostar U-100 Insulin 100 unit/mL (3 mL) insulin pen 12 unit SUBCUT DAILY 60 Days Qty: 8 0RF ondansetron HCl 4 mg tablet See Rx Instructions .ROUTE .COMPLEX Qty: 30 11RF Dose Instruction: TAKE 1 TABLET BY MOUTH EVERY 4 HOURS NEEDED Rx Instructions: TAKE 1 TABLET BY MOUTH EVERY 4 HOURS NEEDED zolpidem 10 mg tablet 10 mg PO BEDTIME PRN (Reason: Sleep) Qty: 30 5RF Ozempic 0.25 mg or 0.5 mg (2 mg/3 mL) pen injector 0.25 mg SUBCUT Q7D 30 Days Qty: 2 0RF Rx Instructions: 0.25mg weekly for 1month, then 0.5mg for 1 month then 1mg weekly and continue Ozempic 0.25 mg or 0.5 mg (2 mg/3 mL) pen injector 0.5 mg SUBCUT Q7D 30 Days Qty: 4 0RF Rx Instructions: 0.5mg weekly then 1mg weekly and continue Ozempic 1 mg/dose (4 mg/3 mL) pen injector 1 mg SUBCUT Q7D 30 Days Qty: 3.75 0RF glimepiride 4 mg tablet See Rx Instructions .ROUTE .COMPLEX Qty: 180 0RF Dose Instruction: TAKE 1 TABLET(4 MG) BY MOUTH TWICE DAILY Rx Instructions: TAKE 1 TABLET(4 MG) BY MOUTH TWICE DAILY atorvastatin 40 mg tablet 40 mg PO DAILY@07 isosorbide mononitrate 30 mg tablet extended release 24 hr 30 mg PO DAILY@07 aspirin 81 mg Tablet,Delayed Release (Dr/Ec) 81 mg PO DAILY@07 Discharge Orders: Discharge ED (Routine); Ordered 04/22/23 Ordered By: Kiersten Dallas Referrals: Helio Rubio MD [Physician] - 1-3 days William Chan MD [Primary Care Provider] - Discharge Diet: Advance as tolerated Discharge Activity: Resume usual activity Patient Instructions: Ankle Fracture (ED) Coding Level of Care Code ED Face Cleaner for Dev Flood
[2023-04-22] MEDS: sodium chloride 0.9% 1,000 ML 999 ML IV ×2 (13:46→14:00)
[2023-04-22 13:51] LABS: Alanine Aminotransferase 9 U/L (0-33); Albumin Level 3.9 g/dL (3.5-5.2); Alkaline Phosphatase 83 U/L (35-105); Anion Gap 15.7 (5-19); Aspartate Amino Transferase 12 U/L (0-32); Blood Urea Nitrogen 20 mg/dL (8-23); Calcium 8.9 mg/dL (8.5-10.5); Carbon Dioxide 22 mmol/L (22-29); Chloride 105 mmol/L (98-107); Globulin 2.4 g/dL (1.3-4.6); Glucose 280 mg/dL (65-115); Osmolality Calculated 299 mOsm/kg (285-295); Potassium 4.7 mmol/L (3.5-5.1); Sodium 138 mmol/L (136-145); Total Bilirubin 0.5 mg/dL (0.15-1.2); Total Protein 6.3 g/dL (6.6-8.7)
[2023-04-22 13:55] VITALS: BP 82/42; PULSE 67; O2SAT 93
--- NOTE | 2023-04-22 14:05 | XR_ITS ---
WS: [id number] Exam: XR ankle LT 2V [id number] Date/Time of Exam: 04/22/2023 2:05 PM Reason For Exam: post splint Compared to the earlier exam on this same day at 12:32 PM. Previously noted trimalleolar fracture of the left ankle shows improved alignment since the initial e xam. A fiberglass cast stabilizes the ankle. XR/XR ankle LT 2V [id number] IMPRESSION: 1. Trimalleolar fracture showing improved alignment when compared to initial im ages performed earlier on the same day.
--- NOTE | 2023-04-22 14:13 | XR_ITS ---
WS: [id number] Exam: XR chest 1V portable [id number] Date/Time of Exam: 04/22/2023 2:13 PM Reason For Exam: fall Comparison 11/15/2022. The lungs are clear and fully inflated. Normal cardiomediastinal silhouette. Signs of previous CABG s urgery. Bony structures are intact. XR/XR chest 1V portable [id number] IMPRESSION: 1. No acute cardiopulmonary finding.
--- NOTE | 2023-04-22 14:13 | CTR_ITS ---
PROCEDURE INFORMATION: Exam: CT Head Without Contrast Exam date and time: 04/22/2023 2:33 PM Age: 72 years old Clinical indication: Injury or trauma; Fall; Blunt trauma (contusions or hematomas) TECHNIQUE: Imaging protocol: Computed tomography of the head without contrast. Radiation optimization: All CT scans at this facility use at least one of these dose optimization techniques: automated exposure control; mA and/or kV adjustment per patient size (includes targeted exams where dose is matched to clinical indication); or iterative reconstruction. REPORTING DATA: Count of CT and Cardiac NM exams in prior 12 months: This patient has received 0 known CTs and 0 known cardiac nuclear medicine studies in the 12 months prior to the current study. COMPARISON: CT head wo con* [id number] 02/01/2021 10:40 PM RADIATION DOSE METRICS: Total DLP (mGy-cm): 1000.7 FINDINGS: Brain: There is mild diffuse cerebral atrophy. There is minimal hypoattenuation in the periventricular white matter suggesting chronic microvascular disease. There is no significant mass effect or midline shift. There is no acute intracranial hemorrhage. Cerebral ventricles: There is no significant ventricular dilation. The basal cisterns are unremarkable. Paranasal sinuses: The paranasal sinuses are clear. Mastoid air cells: The mastoid air cells are clear. Bones/joints: The calvarium is intact. Soft tissues: The visible extracranial soft tissues are unremarkable. CT/CT head wo con* [id number] IMPRESSION: No acute intracranial abnormality.
--- NOTE | 2023-04-22 14:13 | ECG_ITS ---
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 Measurements Intervals [place] Rate: 61 P: 30 NM: 200 QRS: 4 QRSD: 101 T: 61 QT: 449 QTc: 455 Interpretive Statements SINUS RHYTHM Compared to ECG 11/15/2022 10:03:24 T-wave abnormality no longer present Electronically Signed On 04-22-2023 14:46:48 CDT by Edmar Griffith M.D. [id number]
[2023-04-22 14:25] VITALS: BP 99/54; O2SAT 94
[2023-04-22] MEDS: ondansetron 2 mg/ML SDV 2 mL 4 MG IVP (15:20)
[2023-04-22 15:21] LABS: Troponin(5th) Baseline 15 ng/L (0-10)
[2023-04-22 15:30] VITALS: BP 113/66; PULSE 64; O2SAT 95
[2023-04-22 16:01] LABS: Troponin 5 2HR 11.08 ng/L (0-10)
[2023-04-22 16:04] LABS: Lactic Sepsis W/Reflex 2.4 mmol/L (0.5-2.2)
[2023-04-22 16:11] LABS: Troponin 5 2HR Delta -3.92 ABS# (0-10)
[2023-04-22 16:15] VITALS: BP 135/74; PULSE 67; O2SAT 94
[2023-04-22 17:03] LABS: Reflex Lactate Order REFLEX LACTIC ORDERD
--- NOTE | 2023-04-25 08:47 | DCPLANNER ---
Addendum entered by Senia Kowalski 04/27/23 11:26: Patient had a follow up appointment scheduled with ortho - patient did attend appointment. Addendum entered by Senia Kowalski 04/26/23 09:26: Patient has a follow up appointment scheduled for Wednesday, April 26, 2023 at 1:[address] Rubio at ortho. Original Note: manager personal had message to schedule a follow up appointment for patient with ortho. manager personal sent patients information to the front office staff at ortho. Patients information will be printed and reviewed. Clinic will call patient with appointment information.
== END 2023-04-22 16:16 | disposition home or self-care (01) ==
PROVIDERS: Emergency Provider Emergency Medicine; PCP Family Medicine
DX: S82.852A Displaced trimalleolar fracture of left lower leg, initial encounter for closed fracture (principal); Z79.4 Long term (current) use of insulin; Z79.84 Long term (current) use of oral hypoglycemic drugs; Z79.82 Long term (current) use of aspirin; Z87.891 Personal history of nicotine dependence; Z95.1 Presence of aortocoronary bypass graft; I25.10 Atherosclerotic heart disease of native coronary artery without angina pectoris; I10 Essential (primary) hypertension; E78.5 Hyperlipidemia, unspecified; I25.2 Old myocardial infarction; Z85.43 Personal history of malignant neoplasm of ovary; E11.9 Type 2 diabetes mellitus without complications; W01.0XXA Fall on same level from slipping, tripping and stumbling without subsequent striking against object, initial encounter
CPT/HCPCS: 36416; 70450; 71045; 73600; 73610; 80053; 82962; 83605; 84484; 85025; 93005; 96361; 96374; 99285; J2405; J7030

== ENCOUNTER → 2023-04-26 12:49 | Outpatient (BNVA) | payer MEDICARE, BC, SELFPAY | PROVIDERS: PCP Family Medicine; Referring Provider Emergency Medicine; Visit Provider Orthopaedic Surgery | DX: S82.852A Displaced trimalleolar fracture of left lower leg, initial encounter for closed fracture (principal); W19.XXXA Unspecified fall, initial encounter | CPT/HCPCS: 26605; 29515; 99203; A4590 ==

== ENCOUNTER 2023-05-05 07:24 | Day surgery (SDC) | payer MEDICARE, BC, SELFPAY ==
[2023-05-04 10:51] VITALS: BMI 30.4
[2023-05-05] VITALS (14 sets, daily range): BP systolic 116–162; BP diastolic 57–98; PULSE 70–97; RESP 14–18; TEMP 36.3–36.8; O2SAT 90–98
--- NOTE | 2023-05-05 | XR_ITS ---
WS: [id number] XR ankle LT 2V [id number] REASON FOR EXAM: orif left ankle, or pic FINDINGS: Screw fixation of recently demonstrated left medial malleolar fracture. Plate and screw fixation of recently demonstrated spiral fracture of the distal left fibula at the le fabricio of the syndesmosis. Surgical appliances are intact and in proper position and alignment. Fracture fragments are in proper position and alignment. Ankle mortise is intact. XR/XR ankle LT 2V [id number] IMPRESSION: Ankle fractures with fixation as above.
[2023-05-05 08:07] LABS: Glucose Point of Care 199 mg/dL (70-110)
[2023-05-05] MEDS: sodium chloride 0.9% 1,000 ML 30 ML IV (08:22)
[2023-05-05] MEDS: ondansetron 2 mg/ML SDV 2 mL 4 MG IVP ×2 (08:23→11:19)
[2023-05-05] MEDS: scopolamine 1.5 Patch 1 PATCH TRANSDERMA (08:23)
[2023-05-05] MEDS: diphenhydrAMINE 50 mg/mL SDV 1mL 12.5 MG IVP (08:23)
[2023-05-05] MEDS: HYDROmorphone 1 mg/mL INJ 1 mL 0.5 MG IVP (08:33)
--- NOTE | 2023-05-05 09:05 | W.PM.OPSUD ---
Surgery/Procedure H&P Update DATE OF PROCEDURE: May 05, 2023 DATE H&P PERFORMED: 04/26/23 H&P UPDATE INFORMATION: I have reviewed H&P completed within last 30 days PREOP DIAGNOSIS: Trimalleolar fracture left ankle PLANNED PROCEDURE: Operation Date: 05/05/23 09:00 Proposed Procedures p [ORIF left trimalleolar fracture/ [id number]], S82.852A(Left) - Helio Rubio MD
[2023-05-05] MEDS: ceFAZolin 2,000 MG in sodium chloride 0.9% (plus) 50 ML 100 MG IV (09:38)
[2023-05-05 09:39] LABS: Blood Urea Nitrogen 12 mg/dL (8-23); Calcium 9.9 mg/dL (8.5-10.5); Carbon Dioxide 25 mmol/L (22-29); Chloride 100 mmol/L (98-107); Glucose 188 mg/dL (65-115); Osmolality Calculated 289 mOsm/kg (285-295); Sodium 137 mmol/L (136-145)
[2023-05-05] MEDS: sodium chloride 0.9% 100 mL Bag XX (10:20)
--- NOTE | 2023-05-05 11:19 | P.OP_ITS ---
Operative Report Date of procedure: May 05, 2023 Pre-op diagnosis: Preop Diagnosis Trimalleolar fracture left ankle Post-op diagnosis: same Procedure done: Open reduction internal fixation left medial and lateral malleolus Pathology: none sent Surgeon: Helio Rubio Anesthesia: General and Nerve Block (Popliteal) Estimated blood loss (mL): 20 Tourniquet time (min): 57 Findings: The patient had a small avulsion fracture from the tip of the medial malleolus and a oblique fracture of the lateral malleolus. A small posterior malleolar fragment was noted Condition: stable Disposition: PACU Brief History: The patient is a 72-year-old female who fell at home with resulting fracture dislocation of the left ankle on 04/22/2023. She was reduced in a splint and surgery delayed to allow time for the soft tissue envelope to improve Procedure: The patient was taken to the operating room after she was given a popliteal nerve block. She was given a general anesthesia. She is prepped and draped in supine position with her left leg exposed. A timeout was performed. Initial attention was paid to the medial malleolus. A 3 cm long incision was made over the tip of the medial malleolus and dissection carried down full- thickness reviewing the fracture. A very small distal medial malleolar fragment was identified. It was felt sufficient to hold 1 good screw. The fracture was held reduced with a towel clamp. A drill bit was passed engaging the posterior cortex. This length measured 36 mm. A 36 mm fully threaded screw with a washer was then placed engaging in that posterior cortex providing compression across the fracture. The fragment itself was small in quality limited and it was not thought to be of sufficient size or quality to allow for a second screw. Next a 8 cm long incision was made from the tip of the lateral malleolus proximally along its posterior palpable surface. Dissection was carried down full- thickness and the fracture identified. Utilizing a lobster claw clamp the fracture was brought out to length and reduced. A single anterior to posterior interfragmentary screw with a washer was placed providing preliminary reduction of the fracture. A 7 hole plate was contoured along the posterior aspect lateral aspect of the fibula with band distally and under band centrally. It was then compressed through a central hole providing a neutral posterior lateral neutralizing plate compressing the fracture. An additional 2 screws were placed proximally and 2 screws distally. Intraoperative fluoroscopy showed anatomic alignment of talus in the mortise and absence of persistent fracture lines, Wounds were irrigated with saline. Deep tissues were closed with 2-0 Vicryl. The skin was closed with 3-0 Prolene. Xeroform gauze, 4 x 4's, compressive Webril and Jay wrap were applied. The patient was placed in a postop boot, extubated, and taken recovery in stable condition.
[2023-05-05] MEDS: ketorolac 30 mg/mL INJ 15 MG IVP (11:30)
[2023-05-05] MEDS: fentaNYL 50 mcg/mL INJ 2mL IVP (11:32)
--- NOTE | 2023-05-05 11:42 | P.ANESASSM_ITS ---
Pre-Anesthetic Assessment Height/Weight: Height 1.68 m Weight 85.729 kg Temp Pulse Resp BP Pulse Ox O2 Del Method 97.3 F L 81 16 131/98 94 Room Air 05/05/23 11:09 05/05/23 11:30 05/05/23 11:32 05/05/23 11:30 05/05/23 11:30 05/05/23 11:30 Preop Diagnosis: Trimalleolar fracture left ankle Operation Date: 05/05/23 09:00 Proposed Procedures p [ORIF left trimalleolar fracture/ 30178], S82.852A(Left) - Helio Rubio MD Familial anesthetic complications: none Was Beta Javi taken within 24 hours: Yes Was Clonidine taken within 24 hours: N/A Last intake: Intake Last Liquid Date 05/04/23 Last Liquid Time 21:00 Last Solid Date 05/04/23 Last Solid Time 19:30 Social No alcohol and No tobacco Exam alert, oriented x 3, clear to auscultation bilaterally and regular rate & rhythm Airway Submandibular: within normal limits Cervical ROM: within normal limits Mallampati: Class II Dentition: false CV/HEM Coronary Artery Disease and Hypertension GI Gastroesophageal Reflux Disease Metabolic Diabetes Mellitus and Thyroid Disease [facility] Fibromyalgia and Osteoarthritis/DJD Neuropsych Anxiety and Depression Anesthetic Plan ASA status: 3 Anesthesia: General and Regional (specify below) (Left pop blk) Medications/Allergies Home Medications Medication Instructions Recorded Confirmed Last Taken Type aspirin 81 mg tablet,delayed 81 mg PO DAILY@02/20/21 05/04/23 04/30/23 History release isosorbide mononitrate 30 mg 30 mg PO DAILY@02/20/21 05/04/23 05/04/23 History tablet,extended release 24 hr nitroglycerin 0.4 mg sublingual 0.4 mg sublingual Q5M PRN chest 05/13/21 05/04/23 02/02/23 Rx tablet pain #50 tabs pen needle, diabetic 31 gauge x #100 ea 12/01/21 04/28/23 Unknown Rx 5/16 (BD Ultra-Fine Short Pen Needle) blood sugar diagnostic #100 ea 12/30/21 04/28/23 Unknown Rx blood-glucose meter #1 ea 12/30/21 04/28/23 Unknown Rx lancets 31 gauge #100 ea 12/30/21 04/28/23 Unknown Rx blood sugar diagnostic (OneTouch #360 ea 12/31/21 04/28/23 Unknown Rx Ultra Test strips) lisinopril 10 mg tablet 10 mg PO QAM #30 tabs 02/02/22 05/04/23 05/04/23 Rx evolocumab 140 mg/mL subcutaneous 140 ml SUBCUT DIRECTED 09/23/22 05/04/23 05/01/23 History pen injector (Leela Croft) pantoprazole 20 mg tablet,delayed 20 mg PO DAILY #90 tabs 09/23/22 05/04/23 05/04/23 Rx release levothyroxine 175 mcg tablet See Rx Instructions .Route 10/19/22 05/04/23 05/04/23 Rx .COMPLEX #30 tabs zolpidem 10 mg tablet 10 mg PO BEDTIME PRN Sleep #30 tabs 03/21/23 05/04/23 05/04/23 Rx Ozempic 0.25 mg or 0.5 mg (2 mg/3 0.5 mg (0.8 mL) SUBCUT Q7D 30 days 03/24/23 05/04/23 05/01/23 Rx mL) subcutaneous pen injector #4 mL (semaglutide) hydrocodone 10 mg-acetaminophen 1 tab PO BID PRN pain 2 months #60 04/19/23 05/04/23 05/04/23 Rx 325 mg tablet tabs hydrocodone 5 mg-acetaminophen 325 1 tab PO Q6H PRN pain #14 tabs 04/22/23 04/28/23 Unknown Rx mg tablet ondansetron 4 mg disintegrating 4 mg PO Q6H PRN nausea and 04/22/23 05/04/23 05/04/23 Rx tablet vomiting #14 tabs wheel chair #1 ea 04/26/23 04/28/23 Unknown Rx glimepiride 4 mg tablet See Rx Instructions .Route .COMPLEX 04/28/23 05/04/23 05/04/23 History metoprolol tartrate 25 mg tablet 25 mg PO BID 05/04/23 05/04/23 05/04/23 History oxycodone 5 mg tablet 5 mg PO Q4H PRN pain #40 tabs 05/05/23 Unknown Rx Allergies Allergy/AdvReac Type Severity Reaction Status Date / Time No Known Allergies Allergy Verified 04/28/23 14:41 Current Medications Generic Name Dose Route Start Last Admin Trade Name Freq PRN Reason Stop Dose Admin Diphenhydramine HCl 12.5 mg 05/05/23 07:31 05/05/23 08:23 Diphenhydramine 50 Mg/Ml Sdv 1ml IVP 12.5 mg ONCE PRN Administration PONV Fentanyl 50 mcg 05/05/23 11:15 05/05/23 11:32 Fentanyl 50 Mcg/Ml Inj 2ml IVP 05/06/23 11:15 50 mcg Q5M PRN Administration Pain level 1-5 PACU Phase I Hydromorphone HCl 0.5 mg 05/05/23 07:31 05/05/23 08:33 Hydromorphone 1 Mg/Ml Inj 1 Ml IVP 0.5 mg ONCE PRN Administration Phase II postop pain Sodium Chloride 1,000 mls @ 30 mls/hr 05/05/23 07:45 05/05/23 08:22 Sodium Chloride 0.9% IV 05/06/23 07:44 30 mls/hr .Q24H RANDY Administration Ondansetron HCl 4 mg 05/05/23 07:31 05/05/23 08:23 Ondansetron 2 Mg/Ml Sdv 2 Ml IVP 4 mg ONCE PRN Administration NAUSEA AND VOMITING Ondansetron HCl 4 mg 05/05/23 11:15 05/05/23 11:19 Ondansetron 2 Mg/Ml Sdv 2 Ml IVP 4 mg ONCE PRN Administration Nausea/Vomiting PACU PHASE II [facility] Anesthesia Medical History (Updated 04/30/23 @ 00:01 by DONNA Hagen) Atherosclerotic heart disease [place] coronary artery w/angina pectoris Benign essential HTN Dyslipidemia (high LDL; low HDL) Elevated troponin Fibromyalgia On as needed hydrocodone and baclofen Hyperlipidemia Not currently on treatment Hypothyroid Migraine Non-ST elevated myocardial infarction (non-STEMI) Ovarian cancer Treated with hysterectomy with salpingo-oophorectomy Uncontrolled type 2 diabetes with neuropathy UTI (urinary tract infection) Surgical History H/O: hysterectomy History of tonsillectomy Hx of appendectomy Hx of cholecystectomy Status post aorto-coronary artery bypass graft Family History Sister Cancer uterine/cervix CAD (coronary artery disease) Diabetes Mother Cancer cervix Father CAD (coronary artery disease) Brother CAD (coronary artery disease) Diabetes Grandmother Diabetes Denies family history of Clotting disorder Dementia Chronic kidney disease (CKD) Suicide Anesthesia complication Bleeding disorder Lung disease Stroke Social History Smoking and tobacco status: former smoker Alcohol intake: never Substance/Drug Use: never Lives independently: Yes Household members: none Additional social history: Smoked for few years in her 20s Female Reproductive History Para: 2 Data Anesthesia 05/05/23 08:15 BMP 05/05/23 08:15 Sodium 137 Potassium 4.0 Chloride 100 Carbon Dioxide 25 BUN 12 Creatinine 0.8 Glucose 188 H Calcium 9.9 Cardiac Studies: Echocardiogram Limited Views 02/21/21 Echocardiogram Ultrasound 12/06/20 Sestamibi Stress Test (Cardiology) 05/04 Anesthesia Procedures Nerve Block Nerve Block 1: Main Anesthesia: general anesthesia Time Out Performed: Yes Consent: requested by attending/covering physician, from patient, risks and benefits reviewed and patient agrees to proceed Nerve block location: popliteal (left) Anesthesia monitors applied: pulse oximetry, EKG, BP cuff and oxygen Nerve block position: supine Anesthetic Used: ropivicaine 0.5% Amount of anesthesia used (mL): 30 Ultrasound used to: recognize landmarks Nerve Stimulator Used?: Yes Interscalene/Femoral BLK: 4 stimuplex 21 g needle used for position and inplane approach Injection: neg aspiration of heme Patient Tolerated Procedure: well Complications: none
[2023-05-05] MEDS: oxyCODONE 5 mg IR Tab/Cap PO (12:55)
--- NOTE | 2023-05-05 15:38 | ANE.PACU2 ---
Inpatient post-anesthesia follow up: Airway intact: Yes Vital signs: Temperature 98.1 F Pulse Rate 83 Respiratory Rate 16 Blood Pressure 144/57 Pulse Oximetry 98 Oxygen Delivery Me thod Room Air Oxygen Flow Rate Fraction of Inspir ed Oxygen Hydration adequate: Yes Nausea and vomiting: Yes Pain level: 4 Mental status: Baseline
== END 2023-05-05 13:05 | disposition home or self-care (01) ==
PROVIDERS: Anesthesiology; PCP Family Medicine; Visit Provider Orthopaedic Surgery
PROC: (CPT 27822; principal; 2023-05-05 08:50)
DX: S82.852A Displaced trimalleolar fracture of left lower leg, initial encounter for closed fracture (principal); I25.10 Atherosclerotic heart disease of native coronary artery without angina pectoris; I25.2 Old myocardial infarction; I10 Essential (primary) hypertension; K21.9 Gastro-esophageal reflux disease without esophagitis; E11.40 Type 2 diabetes mellitus with diabetic neuropathy, unspecified; E03.9 Hypothyroidism, unspecified; Z79.82 Long term (current) use of aspirin; Z79.4 Long term (current) use of insulin; Z79.84 Long term (current) use of oral hypoglycemic drugs; Z79.85 Long-term (current) use of injectable non-insulin antidiabetic drugs; Z87.891 Personal history of nicotine dependence; Z95.1 Presence of aortocoronary bypass graft; W19.XXXA Unspecified fall, initial encounter; Y92.009 Unspecified place in unspecified non-institutional (private) residence as the place of occurrence of the external cause
CPT/HCPCS: 27822; 36415; 36416; 73600; 76000; 80048; 82962; C1713; J0690; J1170; J1200; J1580; J1885; J2405; J2704; J3010; J7030

== ENCOUNTER → 2023-05-18 11:34 | Outpatient (BNVA) | payer MEDICARE, BC, SELFPAY | PROVIDERS: PCP Family Medicine; Visit Provider Nurse Practitioner Family | DX: S82.852A Displaced trimalleolar fracture of left lower leg, initial encounter for closed fracture (principal); X58.XXXA Exposure to other specified factors, initial encounter | CPT/HCPCS: 73610; 99024 ==

== ENCOUNTER → 2023-06-15 12:58 | Outpatient (BNVA) | payer MEDICARE, BC, SELFPAY | PROVIDERS: PCP Family Medicine; Visit Provider Nurse Practitioner Family | DX: S82.852A Displaced trimalleolar fracture of left lower leg, initial encounter for closed fracture (principal); X58.XXXA Exposure to other specified factors, initial encounter | CPT/HCPCS: 73610; 99024; 99213 ==

== ENCOUNTER → 2023-07-04 12:56 | Outpatient (BNVA) | payer MEDICARE, BC, SELFPAY | PROVIDERS: PCP Family Medicine; Visit Provider Nurse Practitioner Family | DX: S82.852A Displaced trimalleolar fracture of left lower leg, initial encounter for closed fracture (principal); X58.XXXA Exposure to other specified factors, initial encounter | CPT/HCPCS: 73610; 99213 ==

== ENCOUNTER → 2023-07-18 14:56 | Outpatient (BNVA) | payer MEDICARE, BC, SELFPAY | PROVIDERS: PCP Family Medicine; Visit Provider Family Medicine | DX: N39.0 Urinary tract infection, site not specified (principal) | CPT/HCPCS: 81000; 87077; 87086; 87184 ==

== ENCOUNTER → 2023-08-01 12:49 | Outpatient (BNVA) | payer MEDICARE, BC, SELFPAY | PROVIDERS: PCP Family Medicine; Visit Provider Nurse Practitioner Family | DX: S82.852A Displaced trimalleolar fracture of left lower leg, initial encounter for closed fracture; X58.XXXA Exposure to other specified factors, initial encounter | CPT/HCPCS: 73610; 99024; 99213 ==

== ENCOUNTER → 2023-08-30 13:14 | Outpatient (BNVA) | payer MEDICARE, BC, SELFPAY | PROVIDERS: PCP Family Medicine; Visit Provider Physician Assistant | DX: S82.852D Displaced trimalleolar fracture of left lower leg, subsequent encounter for closed fracture with routine healing; X58.XXXD Exposure to other specified factors, subsequent encounter; Z98.890 Other specified postprocedural states; Z87.81 Personal history of (healed) traumatic fracture | CPT/HCPCS: 73610; 99213 ==

== ENCOUNTER → 2023-11-03 14:31 | Outpatient (BNVA) | payer MEDICARE, BC, SELFPAY | PROVIDERS: PCP Family Medicine; Visit Provider Physician Assistant | DX: Z98.890 Other specified postprocedural states (principal); Z87.81 Personal history of (healed) traumatic fracture | CPT/HCPCS: 73610; 99213 ==

== ENCOUNTER 2023-12-16 07:25 | Emergency (ER) | payer MEDICARE, BC, SELFPAY ==
[2023-12-16 07:30] VITALS: BP 131/78; PULSE 93; RESP 17; TEMP 36.8; O2SAT 94
--- NOTE | 2023-12-16 07:42 | CT_ITS ---
WS: [id number] CT ABDOMEN PELVIS TECHNIQUE: Contrast-enhanced CT of the abdomen and pelvis with coronal and sagittal reformatted image s. CLINICAL INFORMATION: abd pain COMPARISON: None. DLP: 866.[address] scans at [facility] use at least one of these dose optimization techniques: automated e xposure control; mA and/or kV adjustment per patient size (includes targeted exams where dose is matc hed to clinical indication); or iterative reconstruction. FINDINGS: Prior hysterectomy. Prior gastric bypass. Diffuse rugal fold thickening in the stomach with submucosa l enhancement extending into the duodenum compatible with gastritis and duodenitis. Small esophageal hiatal hernia. Cholecystectomy. Dilatation of the common bile duct likely physiologic postcholecystec corin. Emphysematous changes in the lung bases. Adrenal glands are normal. Normal renal parenchymal en hancement. No hydronephrosis. Normal caliber abdominal aorta. Dense aortic calcification. Celiac and SMA are patent. KWAME is patent. A few shotty para-aortic lymph nodes. Mild diffuse thickening of the sigmoid colon with surrounding inflammatory changes and induration compatible with acute diverticulitis. No drainable abscess or flu id collection. Recommend follow-up to resolution. Mild hepatomegaly. Diffuse fatty infiltration of the liver. Normal portal vein and splenic vein. Norm al pancreatic parenchymal enhancement. Normal spleen. Fat-containing umbilical hernia. IMPRESSION: 1. Acute simple diverticulitis. No drainable abscess or fluid collection. Recommend follow-up to res olution. 2. Gastric bypass with small esophageal hiatal hernia. 3. Evidence of gastritis and duodenitis with submucosal enhancement. 4. Prior cholecystectomy. 5. Prior hysterectomy. Notified Kiersten Dallas MD at 12/16/2023 9:18 AM.
--- NOTE | 2023-12-16 07:43 | ED_ITS ---
HPI - Abdominal Pain 2 General: Chief Complaint: Abdominal Pain Stated Complaint: Low Back/Abd Pain Time Seen by Provider: 12/16/23 07:33 Source: patient Mode of arrival: ambulatory Limitations: no limitations History of Present Illness: 73-year-old female states over the last week she been having diffuse abdominal pain along with vomiting states that the worst pain in her left lower flank and in her back she denies any diarrhea denies any dysuria denies any worse improved factors her pain is currently 6 out of 10. Associated Symptoms: Reports nausea and vomiting; Denies chills, diarrhea and fever(s) Review of Systems 2 Const: Denies: fever(s), chills, body aches or change in appetite ENMT: Denies: throat pain or dental pain Card: Denies: chest pain Resp: Denies: dyspnea GI: Reports: abdominal pain, nausea and vomiting; Denies: diarrhea Musc: Denies: neck pain or back pain Skin/Breast: Denies: rash Neuro: Denies: headache(s) PFSH ED 2 PFSH: Medical History Migraine UTI (urinary tract infection) Elevated troponin Atherosclerotic heart disease [place] coronary artery w/angina pectoris Non-ST elevated myocardial infarction (non-STEMI) Benign essential HTN Dyslipidemia (high LDL; low HDL) Hyperlipidemia Not currently on treatment Fibromyalgia On as needed hydrocodone and baclofen Hypothyroid Ovarian cancer Treated with hysterectomy with salpingo-oophorectomy Uncontrolled type 2 diabetes with neuropathy Surgical History Status post aorto-coronary artery bypass graft H/O: hysterectomy Hx of cholecystectomy Hx of appendectomy History of tonsillectomy Family History Sister Cancer uterine/cervix CAD (coronary artery disease) Diabetes Mother Cancer cervix Father CAD (coronary artery disease) Brother CAD (coronary artery disease) Diabetes Grandmother Diabetes Denies family history of Clotting disorder Dementia Chronic kidney disease (CKD) Suicide Anesthesia complication Bleeding disorder Lung disease Stroke Social History Smoking and tobacco/nicotine status: former use of tobacco/nicotine Alcohol intake: never Substance/Drug Use: never Additional social history: Smoked for few years in her 20s Lives independently: Yes Household members: none Female Reproductive History: Para: 2 Physical Exam 2 Const: COMMON NORMALS: no acute distress, patient oriented x3 and healthy appearing HENMT: COMMON NORMALS: normocephalic and atraumatic HEAD & SCALP: n ormocephalic and atraumatic Eye: COMMON NORMALS: Equal, round and reactive pupils present and EOMs intact bilaterally PUPIL: Yes Equal, round and reactive pupils present Neck/C-Spine: COMMON NORMALS: full ROM and supple Chest: COMMONS NORMALS: normal inspection of the chest Resp: COMMON NORMALS: normal respiratory effort, No retractions, No use of accessory muscles and clear to auscultation bilaterally AUSCULTATION: clear to auscultation bilaterally Cardio: COMMON NORMALS: regular rate, regular rhythm and No murmurs present (Cardio) RATE: regular rate RHYTHM: regular rhythm GI: COMMON NORMALS: Normal to inspection, nondistended, normoactive bowel sounds present, Soft to palpation and no masses PALPATION: Yes Soft to palpation OTHER: diffuse tenderness Extremity: COMMON NORMALS: normal to inspection and full ROM Neuro: COMMON NORMALS: patient oriented x3, moves all extremities and no focal motor deficits Psych: COMMON NORMALS: mental status grossly normal, Normal thought process present and cooperative THOUGHT PROCESS: Normal thought process present Skin: COMMON NORMALS: no rashes or lesions noted and no wounds GENERAL SKIN EXAM: no rashes or lesions noted Course 2 Vital Signs: Vital signs: Vital Signs Temperature 98.3 F 12/16/23 07:30 Pulse Rate 76 12/16/23 10:07 Respiratory Rate 16 12/16/23 10:07 Blood Pressure 115/77 12/16/23 10:07 Pulse Oximetry 96 12/16/23 10:07 Oxygen Delivery Me thod Room Air 12/16/23 07:30 MDM - Abdominal Pain Medical Decision Making Patient presents here with abdominal pain CT shows a diverticulitis white count is normal will treat at home first with oral antibiotics informed if her pain worsens or she spikes fever she is return she understands agrees plan. Medical Records I reviewed the patient's medical records. Lab Data I reviewed the patient's lab results. 12/16/23 07:52 12/16/23 07:52 Labs/Radiology: Laboratory Results WBC 6.81 10^3/uL (3.29-11.43) 12/16/23 07:52 RBC 4.35 10^6/uL (3.85-5.65) 12/16/23 07:52 Hgb 13.40 g/dL (11.27-16.99) 12/16/23 07:52 Hct 39.4 % (36-47) 12/16/23 07:52 MCV 90.6 fl (85-98) 12/16/23 07:52 MCH 30.8 pg (27-33) 12/16/23 07:52 MCHC 34.0 g/dL (30-55) 12/16/23 07:52 RDW 12.4 % (12.1-15.1) 12/16/23 07:52 Plt Count 177 10^3/cmm (157-399) 12/16/23 07:52 MPV 9.6 fL (7.4-10.4) 12/16/23 07:52 Neut % (Auto) 86.6 % 12/16/23 07:52 Lymph % (Auto) 8.7 % 12/16/23 07:52 Emery % (Auto) 1.8 % 12/16/23 07:52 Eos % (Auto) 1.9 % 12/16/23 07:52 Baso % (Auto) 0.6 % 12/16/23 07:52 Neut # (Auto) 5.90 10^3/uL (1.8-7.7) 12/16/23 07:52 Lymph # (Auto) 0.6 10^3/uL (0.8-4.8) L 12/16/23 07:52 Emery # (Auto) 0.1 10^3/uL (0.2-0.9) L 12/16/23 07:52 Eos # (Auto) 0.1 10^3/uL (0.0-0.8) 12/16/23 07:52 Baso # (Auto) 0.0 10^3/uL (0.0-0.1) 12/16/23 07:52 Nucleated RBC % (auto) 0 % 12/16/23 07:52 Nucleated RBCs # 0.0 /100WBC 12/16/23 07:52 Sodium 132 mmol/L (136-145) L 12/16/23 07:52 Potassium 3.6 mmol/L (3.5-5.1) 12/16/23 07:52 Chloride 96 mmol/L (98-107) L 12/16/23 07:52 Carbon Dioxide 18 mmol/L (22-29) L 12/16/23 07:52 Anion Gap 21.6 (5-19) H 12/16/23 07:52 BUN 22 mg/dL (8-23) 12/16/23 07:52 Creatinine 1.1 mg/dL (0.5-0.9) H 12/16/23 07:52 GFR Calculation Not Reportable 12/16/23 07:52 Glucose 391 mg/dL (65-115) H 12/16/23 07:52 Calculated Osmolality 294 mOsm/kg (285-295) 12/16/23 07:52 Calcium 9.6 mg/dL (8.5-10.5) 12/16/23 07:52 Total Bilirubin 1.5 mg/dL (0.15-1.2) H 12/16/23 07:52 AST 39 U/L (0-32) H 12/16/23 07:52 ALT 43 U/L (0-33) H 12/16/23 07:52 Alkaline Phosphatase 255 U/L (35-105) H 12/16/23 07:52 Total Protein 7.0 g/dL (6.6-8.7) 12/16/23 07:52 Albumin 3.4 g/dL (3.5-5.2) L 12/16/23 07:52 Globulin 3.6 g/dL (1.3-4.6) 12/16/23 07:52 Lipase 26 U/L (13-60) 12/16/23 07:52 Urine Color Yellow (Yellow) 12/16/23 09:51 Urine Appearance Clear (CLEAR) 12/16/23 09:51 Urine pH 5 (5-7) 12/16/23 09:51 Ur Specific [place] 1.005 (1.005-1.030) 12/16/23 09:51 Urine Protein Trace (Negative) 12/16/23 09:51 Urine Glucose (UA) 4+ (Normal) H 12/16/23 09:51 Urine Ketones 1+ (Negative) H 12/16/23 09:51 Urine Blood 2+ (Negative) H 12/16/23 09:51 Urine Nitrate Negative (Negative) 12/16/23 09:51 Urine Bilirubin 1+ (Negative) H 12/16/23 09:51 Urine Urobilinogen 1 mg/dL (Negative) H 12/16/23 09:51 Ur Leukocyte Esterase 1+ (Negative) H 12/16/23 09:51 Urine RBC 0-4 /hpf (0-2) H 12/16/23 09:51 Urine WBC 5-10 /hpf (0-5) H 12/16/23 09:51 Ur Squamous Epith Cells 5-10 /hpf (0-5) H 12/16/23 09:51 Amorphous Sediment Not Reportable 12/16/23 09:51 Urine Bacteria Trace /hpf (NONE) 12/16/23 09:51 Urine Yeast 1+ /hpf H 12/16/23 09:51 All radiology interpretation(s) finalized by discharge Discharge Plan Discharge Patient Disposition: Home Clinical Impression: Diverticulitis Condition: Stable Prescriptions: New hydrocodone-acetaminophen 5-325 mg tablet 1 tab PO Q6H PRN (Reason: pain) Qty: 14 0RF metronidazole 500 mg tablet 500 mg PO Q8H 7 Days Qty: 21 0RF Cipro 500 mg tablet 500 mg PO BID Qty: 14 0RF ondansetron 4 mg tablet,disintegrating 4 mg PO Q6H PRN (Reason: nausea and vomiting) Qty: 14 0RF No Action (DME) blood-glucose meter Misc See Rx Instructions .Route Qty: 1 0RF Rx Instructions: Check BS 4 times a day. (DME) blood sugar diagnostic Strip See Rx Instructions .Route Qty: 100 3RF Rx Instructions: Check Bs 4 times a day. (DME) lancets 31 gauge misc See Rx Instructions .Route Qty: 100 3RF Rx Instructions: Check BS 4 times a day. (DME) OneTouch Ultra Test Strip See Rx Instructions .Route Qty: 360 3RF Rx Instructions: test blood sugar 4 times day (DME) wheel chair See Rx Instructions .Route .MEDSUPPLY Qty: 1 0RF Rx Instructions: As directed hydrocodone-acetaminophen 5-325 mg tablet 1.5 tab PO BID PRN (Reason: pain) 28 Days Qty: 90 0RF Repatha SureClick 140 mg/mL pen injector 140 mg SUBCUT .[id number] DIRECTED cyclobenzaprine 10 mg tablet 10 mg PO TID PRN (Reason: muscle spasm) Qty: 30 5RF zolpidem 10 mg tablet 10 mg PO BEDTIME PRN (Reason: Sleep) Qty: 30 5RF (DME) pen needle, diabetic [BD Ultra-Fine Short Pen Needle] 31 gauge x 5/16 needle See Rx Instructions .Route Qty: 100 3RF Rx Instructions: As directed Ozempic 1 mg/dose (4 mg/3 mL) pen injector 1 mg SUBCUT Q7D 30 Days Qty: 3 0RF aspirin 81 mg Tablet,Delayed Release (Dr/Ec) 81 mg PO DAILY@07 Nitrostat 0.4 mg Tablet, Sublingual 0.4 mg SUBLINGUAL Q5M PRN (Reason: Chest Pain) Rx Instructions: do not exceed 3 doses per episode ranolazine 1,000 mg tablet extended release 12 hr 1,000 mg PO BID levothyroxine 175 mcg tablet 175 mcg PO QAM ondansetron HCl 4 mg tablet 4 mg PO Q6H PRN (Reason: Nausea And Vomiting) glimepiride 4 mg tablet 4 mg PO DAILY Ozempic 0.25 mg or 0.5 mg (2 mg/3 mL) pen injector See Rx Instructions .ROUTE .COMPLEX Rx Instructions: INJECT 0.5 MG Weekly FOR 1 MONTH, THEN INCREASE TO 1 MG EVERY 7 DAYS AND CONTINUE. Discharge Orders: Discharge ED (Routine); Ordered 12/16/23 Ordered By: Kiersten Dallas Referrals: William Chan MD [Primary Care Provider] - 1-3 days Discharge Diet: Advance as tolerated Discharge Activity: Resume usual activity Patient Instructions: Diverticulitis (ED), Opioid Safety Coding Level of Care Code ED Account Development Specialist for Dev Flood
[2023-12-16 07:58] LABS: Basophils % 0.6 %; Eosinophils # 0.1 10^3/uL (0.0-0.8); Eosinophils % 1.9 %; Hematocrit 39.4 % (36-47); Lymphocytes # 0.6 10^3/uL (0.8-4.8); Lymphocytes % 8.7 %; Mean Corpuscular Hemoglobin 30.8 pg (27-33); Mean Corpuscular Volume 90.6 fl (85-98); Mean Platelet Volume 9.6 fL (7.4-10.4); Monocytes # 0.1 10^3/uL (0.2-0.9); Monocytes % 1.8 %; Neutrophils % 86.6 %; Nucleated Red Blood Cells % 0 %; Platelet Count 177 10^3/cmm (157-399); Red Blood Count 4.35 10^6/uL (3.85-5.65); Red Cell Distribution Width 12.4 % (12.1-15.1); White Blood Count 6.81 10^3/uL (3.29-11.43)
[2023-12-16 07:59] VITALS: RESP 16; O2SAT 93
[2023-12-16] MEDS: morphine 4 mg/mL SDV 1 mL IVP ×2 (07:59→10:07)
[2023-12-16] MEDS: ondansetron 2 mg/ML SDV 2 mL 4 MG IVP (07:59)
[2023-12-16] MEDS: sodium chloride 0.9% 1,000 ML 999 ML IV (08:00)
[2023-12-16 08:14] LABS: Alanine Aminotransferase 43 U/L (0-33); Albumin Level 3.4 g/dL (3.5-5.2); Alkaline Phosphatase 255 U/L (35-105); Anion Gap 21.6 (5-19); Aspartate Amino Transferase 39 U/L (0-32); Blood Urea Nitrogen 22 mg/dL (8-23); Calcium 9.6 mg/dL (8.5-10.5); Carbon Dioxide 18 mmol/L (22-29); Chloride 96 mmol/L (98-107); Globulin 3.6 g/dL (1.3-4.6); Glucose 391 mg/dL (65-115); Lipase 26 U/L (13-60); Osmolality Calculated 294 mOsm/kg (285-295); Potassium 3.6 mmol/L (3.5-5.1); Sodium 132 mmol/L (136-145); Total Bilirubin 1.5 mg/dL (0.15-1.2)
[2023-12-16] MEDS: iohexol 350 mg/mL 500 mL Btl (per mL) IV (08:40)
--- NOTE | 2023-12-16 09:17 | PC.PHAR ---
pt states she takes care of her own medications-pt states she takes glimepiride 4mg daily [facility] states they last filled 04/21/24 90d/s 4mg bid pt states just takes one tab daily and states she had a build up of the medication-pt states she is no longer taking imdur er 30mg daily ext shows last filled 05/25/23 90d/s,lisinopril 10mg qam filled 05/04/23 90d/s,metoprolol tartrate 25mg bid filled 07/15/23 90d/s or midodrine 5mg tid prn sbp less than 100-pt states she is suppose to start the ozempic 1mg on 01/18/24-pt states she no longer uses lantus solostar ext shows last filled 01/20/23 125d/s
[2023-12-16 10:07] VITALS: BP 115/77; PULSE 76; RESP 16; RESP 17; O2SAT 96
[2023-12-16] MEDS: ciprofloxacin 500 mg Tablet PO (10:09)
[2023-12-16] MEDS: metroNIDAZOLE 500 MG Tablet PO (10:09)
[2023-12-16 10:27] LABS: Add Urine Culture? Yes; Add Urine Microscopic? YES; Bacteria Urine TRACE /hpf; Bilirubin Urine 1+ (Negative); Blood Urine 2+ (Negative); Glucose Urine UA 4+ (Normal); Ketones Urine 1+ (Negative); Leukocyte Esterase Urine 1+ (Negative); Nitrate Urine Negative (Negative); Protein Urine Trace (Negative); RBC Urine 0-4 /hpf (0-2); Specific Gravity, Urine 1.005 (1.005-1.030); Urine Appearance Clear (CLEAR); Urine Color Yellow (Yellow); Urobilinogen Urine 1 mg/dL (Negative); pH Urine 5 (5-7)
== END 2023-12-16 11:00 | disposition home or self-care (01) ==
PROVIDERS: Emergency Provider Emergency Medicine; PCP Family Medicine
DX: K57.92 Diverticulitis of intestine, part unspecified, without perforation or abscess without bleeding (principal); Z79.82 Long term (current) use of aspirin; Z79.84 Long term (current) use of oral hypoglycemic drugs; Z87.891 Personal history of nicotine dependence; I25.10 Atherosclerotic heart disease of native coronary artery without angina pectoris; I25.2 Old myocardial infarction; I10 Essential (primary) hypertension; E78.5 Hyperlipidemia, unspecified; Z85.43 Personal history of malignant neoplasm of ovary; E11.40 Type 2 diabetes mellitus with diabetic neuropathy, unspecified; Z95.1 Presence of aortocoronary bypass graft
CPT/HCPCS: 74177; 80053; 81001; 83690; 85025; 87086; 96361; 96374; 96375; 96376; 99285; J2270; J2405; J7030; Q9967

== ENCOUNTER 2023-12-18 05:29 | Inpatient (IN) | payer MEDICARE, BC, SELFPAY ==
[2023-12-18] VITALS (11 sets, daily range): BP systolic 121–158; BP diastolic 67–87; PULSE 78–100; RESP 16–18; TEMP 36.6–36.8; O2SAT 95–98; BMI 31.4
--- NOTE | 2023-12-18 05:50 | XRR_ITS ---
PROCEDURE INFORMATION: Exam: XR Chest Exam date and time: 12/18/2023 6:24 AM Age: 73 years old Clinical indication: Other: General weakness; Prior surgery; Surgery date: 6+ months; Surgery type: Cabg TECHNIQUE: Imaging protocol: Radiologic exam of the chest. Views: 1 view. COMPARISON: CR XR chest 1V portable [id number] 04/22/2023 2:26 PM FINDINGS: Tubes, catheters and devices: Median sternotomy suture wires. Lungs: Mild interstitial prominence. Pleural spaces: Unremarkable. No pleural effusion. No pneumothorax. Heart/Mediastinum: Unremarkable. No cardiomegaly. Bones/joints: Unremarkable. XR/XR chest 1V portable [id number] IMPRESSION: No cardiopulmonary disease.
[2023-12-18 06:11] LABS: Basophils # 0.1 10^3/uL (0.0-0.1); Basophils % 0.4 %; Eosinophils % 0.1 %; Hematocrit 36.8 % (36-47); Lymphocytes # 1.3 10^3/uL (0.8-4.8); Lymphocytes % 8.8 %; Mean Corpuscular HGB Conc 32.6 g/dL (30-55); Mean Corpuscular Hemoglobin 30.3 pg (27-33); Mean Corpuscular Volume 92.9 fl (85-98); Mean Platelet Volume 9.7 fL (7.4-10.4); Monocytes # 1.3 10^3/uL (0.2-0.9); Neutrophils # 11.31 10^3/uL (1.8-7.7); Nucleated Red Blood Cells % 0 %; Platelet Count 231 10^3/cmm (157-399); Red Blood Count 3.96 10^6/uL (3.85-5.65); Red Cell Distribution Width 13.1 % (12.1-15.1); White Blood Count 14.52 10^3/uL (3.29-11.43)
--- NOTE | 2023-12-18 06:13 | CTR_ITS ---
PROCEDURE INFORMATION: Exam: CT Abdomen And Pelvis With Contrast Exam date and time: 12/18/2023 6:35 AM Age: 73 years old Clinical indication: Nausea and vomiting; Abdominal pain; Localized; Prior surgery; Surgery date: 6+ months; Surgery type: Cabg. Gastric bypass. Gb. Appy. Hysterectomy. Patient HX: C/O lower abd pain with n/v/d. Diagnosed with diverticulitis on 12/16/2023. TECHNIQUE: Imaging protocol: Computed tomography of the abdomen and pelvis with contrast. Radiation optimization: All CT scans at this facility use at least one of these dose optimization techniques: automated exposure control; mA and/or kV adjustment per patient size (includes targeted exams where dose is matched to clinical indication); or iterative reconstruction. Contrast material: OMNI 350; Contrast volume: 100 ml; Contrast route: INTRAVENOUS (IV); COMPARISON: CT abdomen pelvis w con* [id number] 12/16/2023 8:36 AM RADIATION DOSE METRICS: Total DLP (mGy-cm): 911.24 FINDINGS: Liver: Normal. No mass. Gallbladder and bile ducts: Cholecystectomy. Pancreas: Normal. No ductal dilation. Spleen: Normal. No splenomegaly. Adrenal glands: Normal. No mass. Kidneys and ureters: Normal. No hydronephrosis. Stomach and bowel: Gastric bypass. Mild sigmoid diverticulitis with mild pericolonic stranding. In addition to this there is a hypodense filling defect in the lumen of several inferior mesenteric vein branches with perivascular inflammation. Mild diverticulitis with inferior mesenteric vein Vaibhav phlebitis is present. Appendix: No evidence of appendicitis. Intraperitoneal space: Unremarkable. No free air. No significant fluid collection. Vasculature: See Stomach and bowel finding. Lymph nodes: Unremarkable. No enlarged lymph nodes. Urinary bladder: Unremarkable as visualized. Reproductive: Hysterectomy. Bones/joints: Unremarkable. No acute fracture. Soft tissues: Unremarkable. CT/CT abdomen pelvis w con* [id number] IMPRESSION: Mild diverticulitis with inferior mesenteric vein septic thrombophlebitis.
--- NOTE | 2023-12-18 06:17 | ECG_ITS ---
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 Measurements Intervals Ola Rate: 92 P: 46 CA: 150 QRS: -20 QRSD: 87 T: 53 QT: 367 QTc: 456 Interpretive Statements SINUS RHYTHM Compared to ECG 04/22/2023 14:41:46 No significant changes Electronically Signed On 12-18-2023 21:24:32 BOOM MASTER by Rey Denis M.D. [email or web address] specialty hospital [email or web address] southeast [id number]
[2023-12-18 06:33] LABS: INR 1.08 (0.8-1.2)
[2023-12-18 06:34] LABS: Partial Thromboplastin Time 34.3 SECONDS (23.9-36.7)
[2023-12-18] MEDS: iohexol 350 mg/mL 500 mL Btl (per mL) IV (06:40)
[2023-12-18 06:41] LABS: Alanine Aminotransferase 31 U/L (0-33); Albumin Level 3.2 g/dL (3.5-5.2); Alkaline Phosphatase 241 U/L (35-105); Anion Gap 18.6 (5-19); Aspartate Amino Transferase 24 U/L (0-32); Blood Urea Nitrogen 28 mg/dL (8-23); C Reactive Protein 223.5 mg/L (0.0-4.9); Calcium 9.6 mg/dL (8.5-10.5); Carbon Dioxide 19 mmol/L (22-29); Chloride 92 mmol/L (98-107); Globulin 3.8 g/dL (1.3-4.6); Glucose 412 mg/dL (65-115); Lipase 23 U/L (13-60); Osmolality Calculated 285 mOsm/kg (285-295); Potassium 3.6 mmol/L (3.5-5.1); Sodium 126 mmol/L (136-145); Total Bilirubin 0.8 mg/dL (0.15-1.2)
[2023-12-18 06:42] LABS: Lactic Sepsis W/Reflex 2.2 mmol/L (0.5-2.2)
[2023-12-18 06:47] LABS: Procalcitonin 3.92 ng/mL (0-0.5)
[2023-12-18] MEDS: metroNIDAZOLE IV 500 MG/100 ML PREMIX 100 MG IV (07:29)
--- NOTE | 2023-12-18 07:29 | ED_ITS ---
HPI - Weakness 2 General: Chief complaint: Weakness Stated complaint: Body aces Time Seen by Provider: 12/18/23 06:12 History of Present Illness: 73-year-old female presents emergency de partment complaints of increased abdominal pain. She states she was seen here in the emergency department [address] [place] and was diagnosed with diverticulitis and advised to come back if the pain did not get better. The patient states she continues to have increased nausea and vomiting and is now having 10 out of 10 abdominal pain. She states she is unable to eat any solid food and feels more lethargic and weak. Associated symptoms: Reports fever(s), nausea and vomiting Review of Systems 2 General: Reports: 10 or more systems reviewed and unremarkable except in HPI and below Const: Reports: fever(s), fatigue and malaise GI: Reports: abdominal pain, nausea and vomiting PFSH ED 2 PFSH: Medical History Migraine UTI (urinary tract infection) Elevated troponin Atherosclerotic heart disease [place] coronary artery w/angina pectoris Non-ST elevated myocardial infarction (non-STEMI) Benign essential HTN Dyslipidemia (high LDL; low HDL) Hyperlipidemia Not currently on treatment Fibromyalgia On as needed hydrocodone and baclofen Hypothyroid Ovarian cancer Treated with hysterectomy with salpingo-oophorectomy Uncontrolled type 2 diabetes with neuropathy Surgical History Status post aorto-coronary artery bypass graft H/O: hysterectomy Hx of cholecystectomy Hx of appendectomy History of tonsillectomy Family History Sister Cancer uterine/cervix CAD (coronary artery disease) Diabetes Mother Cancer cervix Father CAD (coronary artery disease) Brother CAD (coronary artery disease) Diabetes Grandmother Diabetes Denies family history of Clotting disorder Dementia Chronic kidney disease (CKD) Suicide Anesthesia complication Bleeding disorder Lung disease Stroke Social History Smoking and tobacco/nicotine status: former use of tobacco/nicotine Alcohol intake: never Substance/Drug Use: never Additional social history: Smoked for few years in her 20s Lives independently: Yes Household members: none Female Reproductive History: Para: 2 Physical Exam 2 Narrative: EXAM NARRATIVE: Constitutional: the patient appears well nourished and with normal development. Vital signs reviewed as documented. HENMT: Normocephalic, atraumatic. External ears normal appearance without drainage. Nose without drainage, normal appearance. Mucus membranes moist. Neck is supple, No jugular venous distension, trachea is midline, no appreciable carotid bruits. No lymphadenopathy. No meningeal signs. Flexion, extension and lateral rotation is without pain. Eyes: Pupils are equal, round, reactive to light and accommodation. No scleral icterus. Extra-ocular movement are intact. Thorax is symmetrical and with equal rise and fall with respirations. Resp: Lungs are clear to auscultation. No wheezes, rales, crackles or ronchi at present. Cardio: Regular rate and rhythm. Positive S1, S2. No appreciable murmurs, rubs or gallops. GI: Abdominal exam reveals normal bowel sounds to all quadrants. No organomegaly. No obvious palpable masses noted. No hepatomegally appreciated. Soft, tender to palpation to all quadrants. Extremity: Extremities are non-edematous and both femoral and pedal pulses are 2+ and equal bilaterally. Moves all extremities well, sensation in all extremities. Neuro: Alert and oriented x4, person, place, time and situation. Cranial nerves II through XII are grossly intact, there is no focal neurological deficits that I can appreciate at present. Motor strength in the upper and lower extremities are equal and bilateral 5/5. Psych: Cooperative, calm, normal thought process, appropriate judgment. Skin: No lesions, rashes. No gross abnormalities noted. Back: Symmetrical, no obvious deformity, No CVA tenderness Course 2 Vital Signs: Vital signs: Vital Signs Temperature 97.9 F 12/18/23 05:33 Pulse Rate 78 12/18/23 07:45 Respiratory Rate 16 12/18/23 07:45 Blood Pressure 130/87 12/18/23 07:45 Pulse Oximetry 98 12/18/23 07:45 MDM - Weakness Medical Decision Making 73-year-old female recently seen in the emergency department diagnosed with diverticulitis returns today with increased abdominal pain we will obtain a CBC, CMP repeat a CT scan. I suspect most likely her diverticulitis has slightly worsened causing her increased nausea and vomiting. I will contact the hospitalist for admission given the CT scan findings. I have provided IV antibiotics as well as anticoagulation and discussed the patient's case with the hospitalist who accepted for admission to the hospital. Medical Records I reviewed the patient's medical records. Lab Data I reviewed the patient's lab results. 12/18/23 06:04 12/18/23 06:04 Radiology Impressions Chest X-Ray 12/18/23 05:50 IMPRESSION: No cardiopulmonary disease. Abdomen/Pelvis CT 12/18/23 06:13 IMPRESSION: Mild diverticulitis with inferior mesenteric vein septic thrombophlebitis. ADDENDUM: 12/18/23 0720 THIS REPORT CONTAINS FINDINGS THAT MAY BE CRITICAL TO PATIENT CARE. The findings were verbally communicated via telephone conference with TAYA MCGINNIS at 7:18 AM HOTEL OFFICE MANAGER on 12/18/2023. The findings were acknowledged and understood Head CT 12/18/23 07:50 IMPRESSION: No acute intracranial abnormality. Laboratory Results WBC 14.52 10^3/uL (3.29-11.43) H 12/18/23 06:04 RBC 3.96 10^6/uL (3.85-5.65) 12/18/23 06:04 Hgb 12.00 g/dL (11.27-16.99) 12/18/23 06:04 Hct 36.8 % (36-47) 12/18/23 06:04 MCV 92.9 fl (85-98) 12/18/23 06:04 MCH 30.3 pg (27-33) 12/18/23 06:04 MCHC 32.6 g/dL (30-55) 12/18/23 06:04 RDW 13.1 % (12.1-15.1) 12/18/23 06:04 Plt Count 231 10^3/cmm (157-399) 12/18/23 06:04 MPV 9.7 fL (7.4-10.4) 12/18/23 06:04 Neut % (Auto) 78.0 % 12/18/23 06:04 Lymph % (Auto) 8.8 % 12/18/23 06:04 [place] % (Auto) 9.0 % 12/18/23 06:04 Eos % (Auto) 0.1 % 12/18/23 06:04 Baso % (Auto) 0.4 % 12/18/23 06:04 Neut # (Auto) 11.31 10^3/uL (1.8-7.7) H 12/18/23 06:04 Lymph # (Auto) 1.3 10^3/uL (0.8-4.8) 12/18/23 06:04 [place] # (Auto) 1.3 10^3/uL (0.2-0.9) H 12/18/23 06:04 Eos # (Auto) 0.0 10^3/uL (0.0-0.8) 12/18/23 06:04 Baso # (Auto) 0.1 10^3/uL (0.0-0.1) 12/18/23 06:04 Nucleated RBC % (auto) 0 % 12/18/23 06:04 Nucleated RBCs # 0.0 /100WBC 12/18/23 06:04 PT 14.40 SECONDS (12.1-14.9) 12/18/23 06:04 INR 1.08 (0.8-1.2) 12/18/23 06:04 APTT 34.3 SECONDS (23.9-36.7) 12/18/23 06:04 Sodium 126 mmol/L (136-145) L 12/18/23 06:04 Potassium 3.6 mmol/L (3.5-5.1) 12/18/23 06:04 Chloride 92 mmol/L (98-107) L 12/18/23 06:04 Carbon Dioxide 19 mmol/L (22-29) L 12/18/23 06:04 Anion Gap 18.6 (5-19) 12/18/23 06:04 BUN 28 mg/dL (8-23) H 12/18/23 06:04 Creatinine 1.4 mg/dL (0.5-0.9) H 12/18/23 06:04 GFR Calculation Not Reportable 12/18/23 06:04 Glucose 412 mg/dL (65-115) H 12/18/23 06:04 Calculated Osmolality 285 mOsm/kg (285-295) 12/18/23 06:04 Lactic Acid 2.2 mmol/L (0.5-2.2) 12/18/23 06:04 Calcium 9.6 mg/dL (8.5-10.5) 12/18/23 06:04 Total Bilirubin 0.8 mg/dL (0.15-1.2) 12/18/23 06:04 AST 24 U/L (0-32) 12/18/23 06:04 ALT 31 U/L (0-33) 12/18/23 06:04 Alkaline Phosphatase 241 U/L (35-105) H 12/18/23 06:04 C-Reactive Protein 223.5 mg/L (0.0-4.9) H 12/18/23 06:04 Total Protein 7.0 g/dL (6.6-8.7) 12/18/23 06:04 Albumin 3.2 g/dL (3.5-5.2) L 12/18/23 06:04 Globulin 3.8 g/dL (1.3-4.6) 12/18/23 06:04 Lipase 23 U/L (13-60) 12/18/23 06:04 Procalcitonin 3.92 ng/mL (0-0.5) H 12/18/23 06:04 Urine Color [place] (Yellow) 12/18/23 07:10 Urine Appearance Clear (CLEAR) 12/18/23 07:10 Urine pH 5 (5-7) 12/18/23 07:10 Ur Specific [place] 1.005 (1.005-1.030) 12/18/23 07:10 Urine Protein Trace (Negative) 12/18/23 07:10 Urine Glucose (UA) 4+ (Normal) H 12/18/23 07:10 Urine Ketones Negative (Negative) 12/18/23 07:10 Urine Blood Trace (Negative) H 12/18/23 07:10 Urine Nitrate Negative (Negative) 12/18/23 07:10 Urine Bilirubin 1+ (Negative) H 12/18/23 07:10 Urine Urobilinogen 1 mg/dL (Negative) H 12/18/23 07:10 Ur Leukocyte Esterase 1+ (Negative) H 12/18/23 07:10 Urine RBC Rare /hpf (0-2) 12/18/23 07:10 Urine WBC 10-15 /hpf (0-5) H 12/18/23 07:10 Ur Squamous Epith Cells 10-15 /hpf (0-5) H 12/18/23 07:10 Amorphous Sediment Not Reportable 12/18/23 07:10 Urine Bacteria 1+ /hpf (NONE) H 12/18/23 07:10 All radiology interpretation(s) finalized by discharge EKG Data EKG 1: Interpretation: Twelve-lead EKG obtained at 1607 and reviewed at 1620 demonstrates sinus rhythm with a ventricular rate of 92 bpm, GA interval 150, QRS duration 87, QT 367, QTc [address] elevation or depression at present to demonstrate acute ischemia or infarction. Discharge Plan Discharge Patient Disposition: Admitted As Inpatient Clinical Impression: Septic thrombophlebitis of superior mesenteric vein, Diverticulitis, Acute hyponatremia Condition: Stable Coding Level of Care Code ED Refrigerator Repairman for Dev Flood
[2023-12-18 07:36] LABS: Blood Urine Trace (Negative); Glucose Urine UA 4+ (Normal); Ketones Urine Negative (Negative); Nitrate Urine Negative (Negative); Protein Urine Trace (Negative); Specific Gravity, Urine 1.005 (1.005-1.030); Urine Appearance Clear (CLEAR); Urine Color Amber (Yellow); pH Urine 5 (5-7)
[2023-12-18 07:37] LABS: Add Urine Culture? No; Add Urine Microscopic? YES; Bacteria Urine 1+ /hpf; Bilirubin Urine 1+ (Negative); Leukocyte Esterase Urine 1+ (Negative); RBC Urine RARE /hpf (0-2); Urobilinogen Urine 1 mg/dL (Negative)
--- NOTE | 2023-12-18 07:50 | CTR_ITS ---
PROCEDURE INFORMATION: Exam: CT Head Without Contrast Exam date and time: 12/18/2023 8:26 AM Age: 73 years old Clinical indication: Altered mental status/memory loss; Additional info: Confusion TECHNIQUE: Imaging protocol: Computed tomography of the head without contrast. Radiation optimization: All CT scans at this facility use at least one of these dose optimization techniques: automated exposure control; mA and/or kV adjustment per patient size (includes targeted exams where dose is matched to clinical indication); or iterative reconstruction. COMPARISON: CT head wo con* [id number] 04/22/2023 2:33 PM RADIATION DOSE METRICS: Total DLP (mGy-cm): 1043.88 FINDINGS: Brain: Normal. No hemorrhage. Unremarkable white matter. No mass effect. Cerebral ventricles: No ventriculomegaly. Paranasal sinuses: Visualized sinuses are unremarkable. No fluid levels. Mastoid air cells: Visualized mastoid air cells are well aerated. Bones/joints: Unremarkable. No acute fracture. Soft tissues: Unremarkable. CT/CT head wo con* [id number] IMPRESSION: No acute intracranial abnormality.
[2023-12-18 07:56] LABS: Reflex Lactate Order REFLEX LACTIC ORDERD
--- NOTE | 2023-12-18 08:14 | P.HP_ITS ---
Providers/Chief Complaint 2 Primary Care Provider: William Chan MD Chief Complaint: Body aces History of Present Illness Yasmani Teixeira is a 73 year old female who was diagnosed with diverticulitis she was discharged from the ER on antibiotics, patient stating that she has been experiencing nausea vomiting high-grade fever since Tuesday, pain has worsened, today she fell because of her weakness and a dresser fell on her head as well she lives alone. In the ER she was diagnosed with septic thrombophlebitis with diverticulitis without abscess. She is afebrile here with leukocytosis lactic acid is normal she does have ARTIE. No tachypnea tachycardia. She is requiring opioids She has been given therapeutic Lovenox along antibiotic Review of Systems 2 Const: Reports: fever(s) Eyes: Denies: change in vision ENMT: Denies: throat pain Card: Denies: chest pain Resp: Denies: dyspnea GI: Reports: abdominal pain : Denies: flank pain Musc: Denies: neck pain Skin/Breast: Denies: rash Neuro: Denies: headache(s) Medications/Allergies Home Medications Medication Instructions Recorded Confirmed Last Taken Type aspirin 81 mg tablet,delayed 81 mg PO DAILY@07 02/20/21 12/18/23 12/16/23 History release pen needle, diabetic 31 gauge x #100 ea 12/01/21 12/18/23 Unknown Rx 5/16 (BD Ultra-Fine Short Pen Needle) blood sugar diagnostic #100 ea 12/30/21 12/18/23 Unknown Rx blood-glucose meter #1 ea 12/30/21 12/18/23 Unknown Rx lancets 31 gauge #100 ea 12/30/21 12/18/23 Unknown Rx blood sugar diagnostic (OneTouch #360 ea 12/31/21 12/18/23 Unknown Rx Ultra Test strips) evolocumab 140 mg/mL subcutaneous 140 mg SUBCUT .[id number] DIRECTED 09/23/22 12/18/23 05/01/23 History pen injector (Leela Croft) wheel chair #1 ea 04/26/23 12/18/23 Unknown Rx cyclobenzaprine 10 mg tablet 10 mg PO TID PRN muscle spasm #30 09/13/23 12/18/23 Unknown Rx tabs zolpidem 10 mg tablet 10 mg PO BEDTIME PRN Sleep #30 tabs 09/13/23 12/18/23 Unknown Rx hydrocodone 5 mg-acetaminophen 325 1.5 tab PO BID PRN pain 4 weeks 11/08/23 12/18/23 Unknown Rx mg tablet #90 tabs semaglutide 1 mg/dose (4 mg/3 mL) 1 mg (0.75 mL) SUBCUT Q7D 30 days 12/14/23 12/18/23 Unknown Rx subcutaneous pen injector (Ozempic) #3 mL ciprofloxacin HCl 500 mg tablet 500 mg PO BID #14 tabs 12/16/23 12/18/23 12/17/23 Rx (Cipro) levothyroxine 175 mcg tablet 175 mcg PO QAM 12/16/23 12/18/23 12/17/23 History metronidazole 500 mg tablet 500 mg PO Q8H 7 days #21 tabs 12/16/23 12/18/23 12/17/23 Rx nitroglycerin 0.4 mg sublingual 0.4 mg sublingual Q5M PRN Chest 12/16/23 12/18/23 Unknown History tablet (Nitrostat) Pain ondansetron HCl 4 mg tablet 4 mg PO Q6H PRN Nausea And Vomiting 12/16/23 12/18/23 Unknown History ranolazine 1,000 mg 1,000 mg PO BID 12/16/23 12/18/23 12/17/23 History tablet,extended release,12 hr Allergies Allergy/AdvReac Type Severity Reaction Status Date / Time No Known Allergies Allergy Verified 12/16/23 09:04 PFSH Acute 2 PFSH: Medical History Migraine UTI (urinary tract infection) Elevated troponin Atherosclerotic heart disease [place] coronary artery w/angina pectoris Non-ST elevated myocardial infarction (non-STEMI) Benign essential HTN Dyslipidemia (high LDL; low HDL) Hyperlipidemia Not currently on treatment Fibromyalgia On as needed hydrocodone and baclofen Hypothyroid Ovarian cancer Treated with hysterectomy with salpingo-oophorectomy Uncontrolled type 2 diabetes with neuropathy Surgical History Status post aorto-coronary artery bypass graft H/O: hysterectomy Hx of cholecystectomy Hx of appendectomy History of tonsillectomy Family History Sister Cancer uterine/cervix CAD (coronary artery disease) Diabetes Mother Cancer cervix Father CAD (coronary artery disease) Brother CAD (coronary artery disease) Diabetes Grandmother Diabetes Denies family history of Clotting disorder Dementia Chronic kidney disease (CKD) Suicide Anesthesia complication Bleeding disorder Lung disease Stroke Social History Smoking and tobacco/nicotine status: former use of tobacco/nicotine Alcohol intake: never Substance/Drug Use: never Additional social history: Smoked for few years in her 20s Lives independently: Yes Household members: none Female Reproductive History: Para: 2 Vitals/I&O/Wt Last Vital Signs Temp 97.9 F 12/18/23 05:33 Pulse 78 12/18/23 07:45 Resp 16 12/18/23 07:45 BP 130/87 12/18/23 07:45 Pulse Ox 98 12/18/23 07:45 Weight last 48 hrs Weight 81.647 kg Physical Exam 2 Narrative: Patient is dehydrated Abdomen soft no active signs of peritonitis GCS 15 Nonfocal neuroexam In distress because of pain Currently on room air Nonfocal neuroexam S1, S2 Family at the bedside No audible stridor or wheezing Data 12/18/23 06:04 12/18/23 06:04 A&P Assessment and plan (1) Benign essential HTN: (2) Diverticulitis: (3) Acute hyponatremia: (4) UTI (urinary tract infection): Qualifiers: Urinary tract infection type: site unspecified Hematuria presence: w ithout hematuria Qualified Code(s): N39.0 - Urinary tract infection, site not specified (5) Fibromyalgia: (6) Inferior mesenteric vein thrombosis: Plan Diverticulitis with septic thrombophlebitis inferior mesenteric vein Start anticoagulating agent Lovenox therapeutic regimen Start opioids Clear liquid diet Start normal saline Patient does not meet SIRS criteria Lactic acid is normal She does have ARTIE continue IV fluid hydration CT head unremarkable Start normal saline with Zosyn No active signs of diverticular abscess History of gastric bypass, Septic inferior mesenteric vein thrombophlebitis In case of further worsening I will repeat CT scan to rule out abscess Full code Attestations 2 Medical Necessity Statement*: More than 2 midnights anticipated for management of sepsis thrombophlebitis and diverticulitis Coding Level of Care Code Acute Code for Chg Fwd Diagnoses Benign essential HTN I10 Diverticulitis K57.92 Acute hyponatremia E87.1 Urinary tract infection without hematuria, site unspecified N39.0 Urinary tract infection type: site unspecified Hematuria presence: without hematuria Fibromyalgia M79.7 Inferior mesenteric vein thrombosis K55.069
[2023-12-18] MEDS: enoxaparin 80 mg/0.8 mL Syringe SUBCUT ×2 (08:49→20:45)
[2023-12-18] MEDS: levofloxacin-dextrose 5 % 750 MG/150 ML PREMIX 100 MG IV (08:49)
[2023-12-18] MEDS: morphine 4 mg/mL SDV 1 mL IVP (09:56)
[2023-12-18] MEDS: ondansetron 2 mg/ML SDV 2 mL 4 MG IVP ×3 (09:56→22:27)
[2023-12-18] MEDS: sodium chloride 0.9% 1,000 ML 75 ML IV ×2 (09:56→14:40)
[2023-12-18 10:09] LABS: Lactic Acid level (Lactate) 1.7 mmol/L (0.5-2.2)
[2023-12-18] MEDS: HYDROmorphone 1 mg/mL INJ 1 mL 0.4 MG IVP ×3 (12:21→20:46)
[2023-12-18] MEDS: ipratropium-albuterol 3 mL Neb INHALATION (14:14)
[2023-12-18] MEDS: piperacillin-tazobactam 3.375 GM in sodium chloride 0.9% (plus) 50 ML IV ×2 (14:39→20:45)
[2023-12-18] MEDS: HYDROcodone-acetaminophen 5-325 mg Tablet 1 TAB PO (14:48)
[2023-12-18 16:30] LABS: Glucose Point of Care 235 mg/dL (70-110)
[2023-12-18] MEDS: insulin lispro 100 unit/1 mL SUBCUT (17:05)
[2023-12-18] MEDS: metoclopramide 5 mg/mL SDV 2 mL IVP (19:30)
[2023-12-18 20:51] LABS: Glucose Point of Care 203 mg/dL (70-110)
[2023-12-18] MEDS: zolpidem 5 mg Tablet 10 MG PO (23:22)
[2023-12-19] VITALS (9 sets, daily range): BP systolic 147–159; BP diastolic 65–78; PULSE 71–82; RESP 14–18; TEMP 36.4–36.9; O2SAT 95–97
[2023-12-19] MEDS: sodium chloride 0.9% 1,000 ML 75 ML IV ×2 (01:44→16:02)
[2023-12-19 04:50] LABS: Basophils # 0.1 10^3/uL (0.0-0.1); Basophils % 0.4 %; Eosinophils % 0.1 %; Lymphocytes % 11.1 %; Mean Corpuscular HGB Conc 33.3 g/dL (30-55); Mean Corpuscular Hemoglobin 30.5 pg (27-33); Mean Corpuscular Volume 91.4 fl (85-98); Mean Platelet Volume 9.3 fL (7.4-10.4); Monocytes % 5.4 %; Neutrophils % 80.2 %; Nucleated Red Blood Cells % 0 %; Platelet Count 304 10^3/cmm (157-399); Red Blood Count 3.94 10^6/uL (3.85-5.65); Red Cell Distribution Width 13.2 % (12.1-15.1); White Blood Count 18.19 10^3/uL (3.29-11.43)
[2023-12-19] MEDS: piperacillin-tazobactam 3.375 GM in sodium chloride 0.9% (plus) 50 ML IV ×3 (05:03→21:13)
[2023-12-19] MEDS: levothyroxine 175 mcg Tablet PO (05:05)
[2023-12-19] MEDS: HYDROmorphone 1 mg/mL INJ 1 mL 0.4 MG IVP ×3 (05:05→18:37)
[2023-12-19 05:08] LABS: Anion Gap 17.5 (5-19); Blood Urea Nitrogen 14 mg/dL (8-23); C Reactive Protein 189.5 mg/L (0.0-4.9); Calcium 9.1 mg/dL (8.5-10.5); Carbon Dioxide 20 mmol/L (22-29); Chloride 98 mmol/L (98-107); Glucose 228 mg/dL (65-115); Magnesium 1.8 mg/dL (1.7-2.3); Osmolality Calculated 282 mOsm/kg (285-295); Potassium 3.5 mmol/L (3.5-5.1); Sodium 132 mmol/L (136-145)
[2023-12-19 06:43] LABS: Glucose Point of Care 195 mg/dL (70-110)
[2023-12-19] MEDS: insulin lispro 100 unit/1 mL SUBCUT ×3 (08:23→18:11)
[2023-12-19] MEDS: enoxaparin 80 mg/0.8 mL Syringe SUBCUT ×2 (08:24→21:13)
[2023-12-19] MEDS: ondansetron 2 mg/ML SDV 2 mL 4 MG IVP ×2 (08:24→18:49)
[2023-12-19] MEDS: HYDROcodone-acetaminophen 5-325 mg Tablet 1 TAB PO ×3 (08:37→22:01)
--- NOTE | 2023-12-19 11:14 | P.PN_ITS ---
Subjective 2 Subjective: Leukocytosis worsened No fever Patient is endorsing her pain is 6 out of 10 No active vomiting She is endorsing nausea Family is at the bedside Vitals/I&O/Wt Last Vital Signs Temp 98.2 F 12/19/23 05:20 Pulse 82 12/19/23 05:20 Resp 16 12/19/23 05:20 BP 152/70 12/19/23 05:20 Pulse Ox 96 12/19/23 05:20 O2 Del Method Room Air 12/19/23 09:48 12/18/23 12/19/23 12/19/23 22:59 06:59 14:59 Intake Total 1978.75 / 2228.75 880 / 3108.75 240 / 240 Output Total 450 / 450 150 / 600 Balance 1528.75 / 1778.75 730 / 2508.75 240 / 240 Weight last 48 hrs Weight 88.195 kg Weight 88.195 kg Weight 81.647 kg Physical Exam 2 Narrative: Patient being supine Rebound tenderness left lower quadrant otherwise no active rigidity or peritonitis signs GCS 15 Mild dehydration Abdomen soft otherwise S1, S2 Currently on room air Data 12/19/23 04:40 12/19/23 04:40 A&P Assessment and plan (1) Inferior mesenteric vein thrombosis: (2) Septic thrombophlebitis: (3) GERD (gastroesophageal reflux disease): (4) Diverticulitis: (5) Acute hyponatremia: (6) Fibromyalgia: Plan Continue anticoagulating agent for inferior venous septic thrombophlebitis Leukocytosis has worsened No fever I have notified patient that I would be inclined to repeat her CT scan with contrast to make sure there is no abscess or perforation in case she starts spiking fever or white count worsens for now we will continue antibiotics along anticoagulating agent I will keep her on clear liquid diet No active emesis, endorsing nausea Insulin with sliding scale Attestations 2 Medical Necessity Statement*: Continue medical management Diagnoses Inferior mesenteric vein thrombosis K55.069 Septic thrombophlebitis I80.9 GERD (gastroesophageal reflux disease) K21.9 Diverticulitis K57.92 Acute hyponatremia E87.1 Fibromyalgia M79.7
[2023-12-19 12:26] LABS: Glucose Point of Care 199 mg/dL (70-110)
[2023-12-19 17:28] LABS: Glucose Point of Care 145 mg/dL (70-110)
[2023-12-19 20:23] LABS: Glucose Point of Care 158 mg/dL (70-110)
[2023-12-19] MEDS: zolpidem 5 mg Tablet 10 MG PO (21:12)
[2023-12-19] MEDS: simethicone 80 mg Chew PO (21:12)
[2023-12-20] VITALS (12 sets, daily range): BP systolic 121–161; BP diastolic 65–84; PULSE 67–82; RESP 14–20; TEMP 36.1–36.8; O2SAT 95–98
[2023-12-20] MEDS: HYDROmorphone 1 mg/mL INJ 1 mL 0.4 MG IVP (02:24)
[2023-12-20] MEDS: simethicone 80 mg Chew PO ×2 (03:52→20:50)
[2023-12-20] MEDS: sodium chloride 0.9% 1,000 ML 75 ML IV (03:52)
[2023-12-20] MEDS: piperacillin-tazobactam 3.375 GM in sodium chloride 0.9% (plus) 50 ML IV ×3 (04:52→20:50)
[2023-12-20] MEDS: HYDROcodone-acetaminophen 5-325 mg Tablet 1 TAB PO ×3 (04:58→18:04)
[2023-12-20] MEDS: levothyroxine 175 mcg Tablet PO (04:59)
[2023-12-20] MEDS: ondansetron 2 mg/ML SDV 2 mL 4 MG IVP (05:40)
--- NOTE | 2023-12-20 06:00 | CTR_ITS ---
PROCEDURE INFORMATION: Exam: CT Abdomen And Pelvis With Contrast Exam date and time: 12/20/2023 6:03 AM Age: 73 years old Clinical indication: Abdominal pain; Prior surgery; Surgery date: 6+ months; Surgery type: Hyst, gastric bypass, betty, appy; Additional info: Diverticulitis TECHNIQUE: Imaging protocol: Computed tomography of the abdomen and pelvis with contrast. Radiation optimization: All CT scans at this facility use at least one of these dose optimization techniques: automated exposure control; mA and/or kV adjustment per patient size (includes targeted exams where dose is matched to clinical indication); or iterative reconstruction. Contrast material: OMNI 350; Contrast volume: 100 ml; Contrast route: INTRAVENOUS (IV); COMPARISON: CT abdomen pelvis w con* [id number] 12/18/2023 6:35 AM RADIATION DOSE METRICS: Total DLP (mGy-cm): 893 FINDINGS: Liver: Normal. No mass. Gallbladder and bile ducts: Normal. No calcified stones. No ductal dilation. Pancreas: Normal. No ductal dilation. Spleen: Normal. No splenomegaly. Adrenal glands: Normal. No mass. Kidneys and ureters: Normal. No hydronephrosis. Stomach and bowel: Stable findings of mild diverticulitis. Appendix: No evidence of appendicitis. Intraperitoneal space: Unremarkable. No free air. No significant fluid collection. Vasculature: Persistent findings of inferior mesenteric venous thrombophlebitis. The intraluminal thrombi are less distinct, the perivascular stranding is unchanged. No drainable abscess. No progressive disease. Lymph nodes: Unremarkable. No enlarged lymph nodes. Urinary bladder: Unremarkable as visualized. Reproductive: Unremarkable as visualized. Bones/joints: Unremarkable. No acute fracture. Soft tissues: Unremarkable. CT/CT abdomen pelvis w con* [id number] IMPRESSION: 1. No significant change. 2. Persistent mild diverticulitis with persistent inferior mesenteric thrombo phlebitis.
[2023-12-20] MEDS: iohexol 350 mg/mL 500 mL Btl (per mL) IV (06:10)
[2023-12-20 06:45] LABS: Basophils # 0.1 10^3/uL (0.0-0.1); Basophils % 0.5 %; Eosinophils # 0.1 10^3/uL (0.0-0.8); Eosinophils % 0.5 %; Hematocrit 35.3 % (36-47); Lymphocytes % 13.3 %; Mean Corpuscular HGB Conc 32.3 g/dL (30-55); Mean Corpuscular Hemoglobin 30.3 pg (27-33); Mean Corpuscular Volume 93.9 fl (85-98); Mean Platelet Volume 9.3 fL (7.4-10.4); Monocytes % 6.4 %; Neutrophils % 75.1 %; Nucleated Red Blood Cells % 0 %; Platelet Count 347 10^3/cmm (157-399); Red Blood Count 3.76 10^6/uL (3.85-5.65); Red Cell Distribution Width 13.5 % (12.1-15.1); White Blood Count 15.06 10^3/uL (3.29-11.43)
[2023-12-20 07:02] LABS: Blood Urea Nitrogen 8 mg/dL (8-23); Calcium 8.8 mg/dL (8.5-10.5); Carbon Dioxide 19 mmol/L (22-29); Chloride 100 mmol/L (98-107); Glucose 170 mg/dL (65-115); Osmolality Calculated 278 mOsm/kg (285-295); Sodium 133 mmol/L (136-145)
[2023-12-20 07:06] LABS: Lactate (Lactic Acid level) 1.4 mmol/L (0.5-2.2)
[2023-12-20 07:08] LABS: Glucose Point of Care 153 mg/dL (70-110)
[2023-12-20 07:13] LABS: Anion Gap 17.2 (5-19); Potassium 3.2 mmol/L (3.5-5.1)
[2023-12-20] MEDS: insulin lispro 100 unit/1 mL SUBCUT ×3 (08:30→17:31)
[2023-12-20] MEDS: enoxaparin 80 mg/0.8 mL Syringe SUBCUT ×2 (08:31→20:50)
[2023-12-20] MEDS: morphine 4 mg/mL SDV 1 mL 2 MG IVP ×3 (09:39→21:00)
[2023-12-20] MEDS: TRAMadol 50 mg Tablet PO (09:40)
--- NOTE | 2023-12-20 10:11 | PC.CHAP ---
Pastoral Care Encounter/Spiritual Assessment Type of Contact [] Declined solar panel technician visit [] Patient/Family/Request visit [] Outpatient visit [] Follow-up visit [] Physician referral [] Code/Alert [x] Routine visit [] Staff referral [] Actively dying [] Patient sleeping [] Family support [] [] Out of room [] Palliative care [] [] Receiving care in room [] Pre-surgical visit [] Trauma [] Long length of stay [] ICU visit [] Other: Relational/Emotional Strength [x] Patient feels connected with others/family/visitors/staff [] Distress [] Loneliness/isolation [] Abandonment Spirituality of Patient [x] Person of Vilma [] Attends Shinto of their [place] [x] Believes in Prayer [] Reads Bible or Methodist materials [] There are Spiritual issues to be addressed [employer] Interventions [x] Prayer [] Active listening [] Non-anxious presence [x] Spiritual/emotional support [] Crisis/trauma care [] Spiritual counseling [] Bereavement support [] Provided bereavement packet [] Provided Bible/devotional materials [] Provided toy/stuffed animal, coloring book to patient or family member [] Provided Communion [] Anointing/[place] [] Salvation [x] Completed spiritual assessment [] Other: Impact on Illness or Injury [] Angry [] Fearful [] Anxious [] Often cries [] Exhaustion [] Unable to work [] Unable to attend rastafarian [] Unable to walk/stand [] Unable to read [] Unable to drive [] Unable to eat/drink [] Unable to sleep [] Unable to be with family [] Patient intubated [] Other: Summary Time spent with patient 5
[2023-12-20 12:03] LABS: Glucose Point of Care 251 mg/dL (70-110)
--- NOTE | 2023-12-20 12:31 | P.PN_ITS ---
Subjective 2 Subjective: This morning patient is endorsing feeling slightly better however pain is still 6/10 Has not multiple bowel movements No fever White count 15,[address] scan did not show any sign of abscess Vitals/I&O/Wt Last Vital Signs Temp 97.8 F 12/20/23 08:00 Pulse 68 12/20/23 08:41 Resp 16 12/20/23 09:39 BP 149/65 12/20/23 08:00 Pulse Ox 98 12/20/23 08:41 O2 Del Method Room Air 12/20/23 08:41 12/19/23 12/20/23 12/20/23 22:59 06:59 14:59 Intake Total 1890 / 2660 937.5 / 3597.5 290 / 290 Balance 1890 / 2660 937.5 / 3597.5 290 / 290 Weight last 48 hrs Weight 87.997 kg Weight 88.195 kg Physical Exam 2 Narrative: Awake and alert Left lower quadrant rebound tenderness present no signs of rigidity or peritonitis Pleasant cough Well-hydrated Discontinue IV fluids Currently on antibiotics S1, S2 Currently doing well on room air No active nausea vomiting Data 12/20/23 06:23 12/20/23 06:23 A&P Assessment and plan (1) Inferior mesenteric vein thrombosis: (2) Septic thrombophlebitis: (3) Diabetes type 2, uncontrolled: (4) GERD (gastroesophageal reflux disease): (5) Diverticulitis: (6) Acute hyponatremia: (7) Fibromyalgia: (8) Coronary artery disease due to type 2 diabetes mellitus: Plan I will give anti-inflammatory medications along IV morphine Patient does not want to use Dilaudid No sign of abscess Afebrile Continue antibiotics Leukocytosis improving Thrombophlebitis IMV continue therapeutic Lovenox, will do Eliquis at the time of discharge Disposition: Most likely by tomorrow if white count is trending down Continue clear liquid diet Attestations 2 Medical Necessity Statement*: Discharge likely tomorrow Diagnoses Inferior mesenteric vein thrombosis K55.069 Septic thrombophlebitis I80.9 Diabetes type 2, uncontrolled E11.65 GERD (gastroesophageal reflux disease) K21.9 Diverticulitis K57.92 Acute hyponatremia E87.1 Fibromyalgia M79.7 Coronary artery disease due to type 2 diabetes mellitus E11.59; I25.10
[2023-12-20] MEDS: ketorolac 30 mg/mL INJ 15 MG IVP (14:08)
[2023-12-20 17:26] LABS: Glucose Point of Care 190 mg/dL (70-110)
[2023-12-20] MEDS: ketorolac 10 mg Tablet PO (20:56)
[2023-12-20] MEDS: zolpidem 5 mg Tablet 10 MG PO (21:00)
[2023-12-20 21:25] LABS: Glucose Point of Care 132 mg/dL (70-110)
[2023-12-21] VITALS (7 sets, daily range): BP systolic 130–157; BP diastolic 57–81; PULSE 68–81; RESP 14–17; TEMP 36.5–37.1; O2SAT 92–96
[2023-12-21] MEDS: HYDROcodone-acetaminophen 5-325 mg Tablet 1 TAB PO ×4 (01:50→22:18)
[2023-12-21] MEDS: piperacillin-tazobactam 3.375 GM in sodium chloride 0.9% (plus) 50 ML IV ×2 (03:54→12:02)
[2023-12-21] MEDS: ondansetron 2 mg/ML SDV 2 mL 4 MG IVP (04:04)
[2023-12-21 05:35] LABS: Hematocrit 32.3 % (36-47); Mean Corpuscular HGB Conc 32.8 g/dL (30-55); Mean Corpuscular Hemoglobin 30.5 pg (27-33); Mean Corpuscular Volume 92.8 fl (85-98); Mean Platelet Volume 9.3 fL (7.4-10.4); Platelet Count 367 10^3/cmm (157-399); Red Blood Count 3.48 10^6/uL (3.85-5.65); Red Cell Distribution Width 13.4 % (12.1-15.1); White Blood Count 11.16 10^3/uL (3.29-11.43)
[2023-12-21] MEDS: levothyroxine 175 mcg Tablet PO (05:38)
[2023-12-21 05:56] LABS: Alanine Aminotransferase 14 U/L (0-33); Albumin Level 2.6 g/dL (3.5-5.2); Alkaline Phosphatase 146 U/L (35-105); Aspartate Amino Transferase 10 U/L (0-32); Blood Urea Nitrogen 6 mg/dL (8-23); Calcium 8.6 mg/dL (8.5-10.5); Carbon Dioxide 23 mmol/L (22-29); Chloride 103 mmol/L (98-107); Globulin 2.9 g/dL (1.3-4.6); Glucose 164 mg/dL (65-115); Osmolality Calculated 287 mOsm/kg (285-295); Sodium 138 mmol/L (136-145); Total Bilirubin 0.5 mg/dL (0.15-1.2); Total Protein 5.5 g/dL (6.6-8.7)
[2023-12-21 06:02] LABS: Slide Review Slide Review Perform
[2023-12-21 06:03] LABS: Absolute Eosinophils 0.2 10^3/cmm (0.0-0.7); Absolute Segmented Neutrophil 7.5 10/cmm (1.6-7.1); Eosinophils 2 %; Lymphocytes 17 %; Monocytes Absolute 1.1 10^3/cmm (0.1-0.6); Platelet Estimate Normal (Normal); Segmented Neutrophils 67 %; Smudge Cells Trace; Total Cells Counted 100 (0-100)
[2023-12-21 06:34] LABS: Glucose Point of Care 158 mg/dL (70-110)
[2023-12-21] MEDS: morphine 4 mg/mL SDV 1 mL 2 MG IVP (09:02)
[2023-12-21] MEDS: simethicone 80 mg Chew PO ×2 (09:02→14:04)
[2023-12-21] MEDS: ketorolac 10 mg Tablet PO ×3 (09:02→22:18)
[2023-12-21] MEDS: insulin lispro 100 unit/1 mL SUBCUT ×3 (09:02→18:27)
[2023-12-21] MEDS: enoxaparin 80 mg/0.8 mL Syringe SUBCUT ×2 (09:04→20:11)
--- NOTE | 2023-12-21 10:25 | P.PN_ITS ---
Subjective 2 Subjective: Patient is stating that she is feeling much better Her bowel movements are not liquid at all she does not warrant C. difficile testing as of now No fever white count improving Pain 4-6 today She still requiring cyclical pain medications She is stating that she will be able to bear this pain at home I have asked patient to ambulate, she does not want to advance her diet as of yet Potassium will be repleted Vitals/I&O/Wt Last Vital Signs Temp 97.8 F 12/21/23 07:53 Pulse 81 12/21/23 08:28 Resp 16 12/21/23 09:02 BP 130/57 12/21/23 07:53 Pulse Ox 94 12/21/23 08:28 O2 Del Method Room Air 12/21/23 08:28 12/20/23 12/21/23 12/21/23 22:59 06:59 14:59 Intake Total 290 / 1698.75 50 / 1748.75 170 / 170 Output Total 400 / 400 Balance 290 / 1698.75 -350 / 1348.75 170 / 170 Weight last 48 hrs Weight 87.997 kg Physical Exam 2 Narrative: Awake and alert Well-hydrated GCS 15 Guarding or rigidity Mild rebound tenderness however slightly better than yesterday Awake and alert S1, S2 Currently on room air Son is at the bedside Nonfocal neuroexam Data 12/21/23 04:54 12/21/23 04:54 Micro: Microbiology 12/18/23 08:02 Blood Culture - Preliminary Blood 12/18/23 07:57 Blood Culture - Preliminary Blood A&P Assessment and plan (1) Inferior mesenteric vein thrombosis: (2) Diabetes type 2, uncontrolled: (3) Hypothyroid: Qualifiers: Hypothyroidism type: acquired Qualified Code(s): E03.9 - Hypothyroidism, unspecified (4) Diverticulitis: (5) Acute hyponatremia: (6) UTI (urinary tract infection): Qualifiers: Urinary tract infection type: site unspecified Hematuria presence: w ithout hematuria Qualified Code(s): N39.0 - Urinary tract infection, site not specified Plan My plan is to discharge her by tomorrow She is tolerating her full liquid diet Leukocytosis improving Afebrile Will discharge on Eliquis Patient will need outpatient colonoscopy Son at the bedside Hyponatremia improved Signs of UTI improved Off IV fluids Hypokalemia, potassium replenished Add magnesium Paste consistency of bowel movement does not need C. difficile test Attestations 2 Medical Necessity Statement*: Discharge hopefully by tomorrow Diagnoses Inferior mesenteric vein thrombosis K55.069 Diabetes type 2, uncontrolled E11.65 Acquired hypothyroidism E03.9 Hypothyroidism type: acquired Diverticulitis K57.92 Acute hyponatremia E87.1 Urinary tract infection without hematuria, site unspecified N39.0 Urinary tract infection type: site unspecified Hematuria presence: without hematuria
[2023-12-21] MEDS: potassium chloride ER 20 mEq Tablet 40 MEQ PO (11:01)
[2023-12-21 11:53] LABS: Glucose Point of Care 264 mg/dL (70-110)
[2023-12-21] MEDS: magnesium oxide 400 mg tablet PO (17:05)
[2023-12-21 17:14] LABS: Glucose Point of Care 240 mg/dL (70-110)
[2023-12-21] MEDS: ondansetron 4 MG Tablet PO (18:35)
--- NOTE | 2023-12-21 19:57 | PC.NURSE ---
Patient IV leaking, so taken out. Notified physician and was told it was ok to leave IV out and discontinue IV antibiotics. RBVO. Will continue to monitor.
[2023-12-21 21:33] LABS: Glucose Point of Care 169 mg/dL (70-110)
[2023-12-21] MEDS: zolpidem 5 mg Tablet 10 MG PO (22:18)
[2023-12-22] VITALS: BP 110/64; PULSE 80; RESP 17; TEMP 36.9; O2SAT 92
[2023-12-22] MEDS: HYDROcodone-acetaminophen 5-325 mg Tablet 1 TAB PO ×3 (02:21→10:19)
[2023-12-22] MEDS: ketorolac 10 mg Tablet PO ×2 (02:21→06:21)
[2023-12-22 04:00] VITALS: BP 143/78; PULSE 72; RESP 18; TEMP 36.9; O2SAT 94
[2023-12-22 05:17] VITALS: BMI 31.7
[2023-12-22 05:39] LABS: Basophils # 0.1 10^3/uL (0.0-0.1); Basophils % 0.5 %; Eosinophils # 0.3 10^3/uL (0.0-0.8); Eosinophils % 2.5 %; Hematocrit 31.5 % (36-47); Lymphocytes # 2.7 10^3/uL (0.8-4.8); Lymphocytes % 25.6 %; Mean Corpuscular HGB Conc 32.1 g/dL (30-55); Mean Corpuscular Volume 93.5 fl (85-98); Mean Platelet Volume 8.9 fL (7.4-10.4); Monocytes # 0.7 10^3/uL (0.2-0.9); Monocytes % 6.8 %; Neutrophils # 6.15 10^3/uL (1.8-7.7); Nucleated Red Blood Cells % 0 %; Platelet Count 402 10^3/cmm (157-399); Red Blood Count 3.37 10^6/uL (3.85-5.65); Red Cell Distribution Width 13.6 % (12.1-15.1); White Blood Count 10.41 10^3/uL (3.29-11.43)
[2023-12-22 05:58] LABS: Anion Gap 11.5 (5-19); Blood Urea Nitrogen 6 mg/dL (8-23); Calcium 8.5 mg/dL (8.5-10.5); Carbon Dioxide 25 mmol/L (22-29); Chloride 104 mmol/L (98-107); Glucose 179 mg/dL (65-115); Osmolality Calculated 286 mOsm/kg (285-295); Potassium 3.5 mmol/L (3.5-5.1); Sodium 137 mmol/L (136-145)
[2023-12-22 06:01] LABS: Slide Review Slide Review Perform
[2023-12-22] MEDS: levothyroxine 175 mcg Tablet PO (06:20)
[2023-12-22] MEDS: ondansetron 4 MG Tablet PO (06:20)
[2023-12-22 07:07] LABS: Glucose Point of Care 213 mg/dL (70-110)
[2023-12-22] MEDS: simethicone 80 mg Chew PO (07:14)
[2023-12-22 08:00] VITALS: BP 120/71; PULSE 74; RESP 16; TEMP 36.6; O2SAT 97
[2023-12-22] MEDS: potassium chloride ER 20 mEq Tablet 40 MEQ PO (09:30)
[2023-12-22] MEDS: enoxaparin 80 mg/0.8 mL Syringe SUBCUT (09:30)
[2023-12-22] MEDS: magnesium oxide 400 mg tablet PO (09:30)
[2023-12-22] MEDS: insulin lispro 100 unit/1 mL SUBCUT (09:31)
--- NOTE | 2023-12-22 09:53 | P.DS_ITS ---
Discharge Providers Date of Admission: 12/18/23 07:30 Date of Discharge: December 22, 2023 Attending Provider at Admission: Thom De La Cruz MD Attending Provider at Discharge: Thom De La Cruz MD Primary Care Provider: William Chan MD Diagnoses at Discharge Discharge Diagnosis (1) Inferior mesenteric vein thrombosis: Status: Acute (2) Diabetes type 2, uncontrolled: Status: Acute (3) Hypothyroid: Status: Acute Qualifiers: Hypothyroidism type: acquired Qualified Code(s): E03.9 - Hypothyroidism, unspecified (4) Diverticulitis: Status: Acute (5) Acute hyponatremia: Status: Acute (6) UTI (urinary tract infection): Status: Acute Qualifiers: Urinary tract infection type: site unspecified Hematuria presence: without hematuria Qualified Code(s): N39.0 - Urinary tract infection, site not specified Reason for Visit Reason for Visit: Body aces Hospital Course Hospital Course Very pleasant 73-year-old female who was admitted for management evaluation of worsening pain related to diverticulitis, she was given antibiotics and was discharged from the ER a few days before her revisit, this time she was diagnosed with inferior mesenteric vein thrombophlebitis she was put on therapeutic dose of Lovenox, her pain was managed with anti-inflammatory medications along opioids, repeat CT scan did not show any signs of worsening of diverticulitis no abscess, no fever, leukocytosis trended down to normal. Cultures remain negative. I have given Eliquis for at least 1 month and counseled patient to get colonoscopy with Dr. Jefferson once she is done with her Eliquis regimen. Physical Exam Narrative: Pleasant cooperative Abdomen soft No signs of peritonitis or rigidity DC 50 S1, S2 Currently on room air Discharge Data Studies Completed and Pending Completed Studies During Hospitalization Category Date Time Status CT abdomen pelvis w con* [id number] Routine Cat Scan 12/20/23 06:[address] abdomen pelvis w con* [id number] Stat Cat Scan 12/18/23 06:[address] head wo con* [id number] Stat Cat Scan 12/18/23 07:50 Completed XR chest 1V portable [id number] Stat Exams 12/18/23 05:50 Completed Pending at discharge Category Date Time Status Blood Cultures ([facility]) Routine Lab 12/18/23 07:57 Results Blood Cultures ([facility]) Routine Lab 12/18/23 08:02 Results Radiology Impressions Chest X-Ray 12/18/23 05:50 IMPRESSION: No cardiopulmonary disease. Head CT 12/18/23 07:50 IMPRESSION: No acute intracranial abnormality. Abdomen/Pelvis CT 12/20/23 06:00 IMPRESSION: 1. No significant change. 2. Persistent mild diverticulitis with persistent inferior mesenteric thrombo phlebitis. Laboratory Results WBC 10.41 10^3/uL (3.29-11.43) 12/22/23 05:25 RBC 3.37 10^6/uL (3.85-5.65) L 12/22/23 05:25 Hgb 10.10 g/dL (11.27-16.99) L 12/22/23 05:25 Hct 31.5 % (36-47) L 12/22/23 05:25 MCV 93.5 fl (85-98) 12/22/23 05:25 MCH 30.0 pg (27-33) 12/22/23 05:25 MCHC 32.1 g/dL (30-55) 12/22/23 05:25 RDW 13.6 % (12.1-15.1) 12/22/23 05:25 Plt Count 402 10^3/cmm (157-399) H 12/22/23 05:25 MPV 8.9 fL (7.4-10.4) 12/22/23 05:25 Neut % (Auto) 59.0 % 12/22/23 05:25 Lymph % (Auto) 25.6 % 12/22/23 05:25 [place] % (Auto) 6.8 % 12/22/23 05:25 Eos % (Auto) 2.5 % 12/22/23 05:25 Baso % (Auto) 0.5 % 12/22/23 05:25 Neut # (Auto) 6.15 10^3/uL (1.8-7.7) 12/22/23 05:25 Lymph # (Auto) 2.7 10^3/uL (0.8-4.8) 12/22/23 05:25 [place] # (Auto) 0.7 10^3/uL (0.2-0.9) 12/22/23 05:25 Eos # (Auto) 0.3 10^3/uL (0.0-0.8) 12/22/23 05:25 Baso # (Auto) 0.1 10^3/uL (0.0-0.1) 12/22/23 05:25 Nucleated RBC % (auto) 0 % 12/22/23 05:25 Total Counted 100 (0-100) 12/21/23 04:54 Atypical Lymphs % Not Reportable 12/21/23 04:54 Segmented Neutrophils 67 % 12/21/23 04:54 Abs Segm Neuts (Man) 7.5 10/cmm (1.6-7.1) H 12/21/23 04:54 Band Neutrophils Not Reportable 12/21/23 04:54 Lymphocytes (Manual) 17 % 12/21/23 04:54 Monocytes (Manual) 10.0 % 12/21/23 04:54 Absolute Monocytes 1.1 10^3/cmm (0.1-0.6) H 12/21/23 04:54 Eosinophils (Manual) 2 % 12/21/23 04:54 Absolute Eosinophils 0.2 10^3/cmm (0.0-0.7) 12/21/23 04:54 Basophils (Manual) 0.0 % 12/21/23 04:54 Absolute Basophils 0.0 10^3/cmm (0.0-0.2) 12/21/23 04:54 Myelocytes 4.0 % 12/21/23 04:54 Nucleated RBCs # 0.0 /100WBC 12/22/23 05:25 Smudge Cells Trace 12/21/23 04:54 Platelet Estimate Normal (Normal) 12/21/23 04:54 PT 14.40 SECONDS (12.1-14.9) 12/18/23 06:04 INR 1.08 (0.8-1.2) 12/18/23 06:04 APTT 34.3 SECONDS (23.9-36.7) 12/18/23 06:04 Sodium 137 mmol/L (136-145) 12/22/23 05:25 Potassium 3.5 mmol/L (3.5-5.1) 12/22/23 05:25 Chloride 104 mmol/L (98-107) 12/22/23 05:25 Carbon Dioxide 25 mmol/L (22-29) 12/22/23 05:25 Anion Gap 11.5 (5-19) 12/22/23 05:25 BUN 6 mg/dL (8-23) L 12/22/23 05:25 Creatinine 0.5 mg/dL (0.5-0.9) 12/22/23 05:25 GFR Calculation Not Reportable 12/22/23 05:25 Glucose 179 mg/dL (65-115) H 12/22/23 05:25 POC Glucose 213 mg/dL (70-110) H 12/22/23 06:50 Calculated Osmolality 286 mOsm/kg (285-295) 12/22/23 05:25 Lactic Acid 2.2 mmol/L (0.5-2.2) 12/18/23 06:04 Lactic Acid (Sepsis) 1.7 mmol/L (0.5-2.2) 12/18/23 09:38 Lactate 1.4 mmol/L (0.5-2.2) 12/20/23 06:23 Calcium 8.5 mg/dL (8.5-10.5) 12/22/23 05:25 Magnesium 1.8 mg/dL (1.7-2.3) 12/19/23 04:40 Total Bilirubin 0.5 mg/dL (0.15-1.2) 12/21/23 04:54 AST 10 U/L (0-32) 12/21/23 04:54 ALT 14 U/L (0-33) 12/21/23 04:54 Alkaline Phosphatase 146 U/L (35-105) H 12/21/23 04:54 C-Reactive Protein 189.5 mg/L (0.0-4.9) H 12/19/23 04:40 Total Protein 5.5 g/dL (6.6-8.7) L 12/21/23 04:54 Albumin 2.6 g/dL (3.5-5.2) L 12/21/23 04:54 Globulin 2.9 g/dL (1.3-4.6) 12/21/23 04:54 Lipase 23 U/L (13-60) 12/18/23 06:04 Procalcitonin 3.92 ng/mL (0-0.5) H 12/18/23 06:04 Urine Color Clarisa (Yellow) 12/18/23 07:10 Urine Appearance Clear (CLEAR) 12/18/23 07:10 Urine pH 5 (5-7) 12/18/23 07:10 Ur Specific [place] 1.005 (1.005-1.030) 12/18/23 07:10 Urine Protein Trace (Negative) 12/18/23 07:10 Urine Glucose (UA) 4+ (Normal) H 12/18/23 07:10 Urine Ketones Negative (Negative) 12/18/23 07:10 Urine Blood Trace (Negative) H 12/18/23 07:10 Urine Nitrate Negative (Negative) 12/18/23 07:10 Urine Bilirubin 1+ (Negative) H 12/18/23 07:10 Urine Urobilinogen 1 mg/dL (Negative) H 12/18/23 07:10 Ur Leukocyte Esterase 1+ (Negative) H 12/18/23 07:10 Urine RBC Rare /hpf (0-2) 12/18/23 07:10 Urine WBC 10-15 /hpf (0-5) H 12/18/23 07:10 Ur Squamous Epith Cells 10-15 /hpf (0-5) H 12/18/23 07:10 Amorphous Sediment Not Reportable 12/18/23 07:10 Urine Bacteria 1+ /hpf (NONE) H 12/18/23 07:10 Vitals Last Vital Signs Temp 97.8 F 12/22/23 08:00 Pulse 74 12/22/23 08:00 Resp 16 12/22/23 08:00 BP 120/71 12/22/23 08:00 Pulse Ox 97 12/22/23 08:00 O2 Del Method Room Air 12/22/23 08:00 Discharge Plan Discharge Patient Disposition: Home Condition: Stable Prescriptions: New hydrocodone-acetaminophen 5-325 mg tablet 1 tab PO Q6H PRN (Reason: pain) Qty: 20 0RF Eliquis 5 mg tablet 5 mg PO BID Qty: 60 0RF sennosides-docusate sodium [Senna-S] 8.6-50 mg tablet 1 tab-cap PO DAILY Qty: 14 0RF Continued (DME) blood-glucose meter Misc See Rx Instructions .Route Qty: 1 0RF Rx Instructions: Check BS 4 times a day. (DME) blood sugar diagnostic Strip See Rx Instructions .Route Qty: 100 3RF Rx Instructions: Check Bs 4 times a day. (DME) lancets 31 gauge misc See Rx Instructions .Route Qty: 100 3RF Rx Instructions: Check BS 4 times a day. (DME) OneTouch Ultra Test Strip See Rx Instructions .Route Qty: 360 3RF Rx Instructions: test blood sugar 4 times day (DME) wheel chair See Rx Instructions .Route .MEDSUPPLY Qty: 1 0RF Rx Instructions: As directed Repatha SureClick 140 mg/mL pen injector 140 mg SUBCUT .[id number] DIRECTED cyclobenzaprine 10 mg tablet 10 mg PO TID PRN (Reason: muscle spasm) Qty: 30 5RF zolpidem 10 mg tablet 10 mg PO BEDTIME PRN (Reason: Sleep) Qty: 30 5RF (DME) pen needle, diabetic [BD Ultra-Fine Short Pen Needle] 31 gauge x 5/16 needle See Rx Instructions .Route Qty: 100 3RF Rx Instructions: As directed Ozempic 1 mg/dose (4 mg/3 mL) pen injector 1 mg SUBCUT Q7D 30 Days Qty: 3 0RF hydrocodone-acetaminophen 5-325 mg tablet 1.5 tab PO BID PRN (Reason: pain) 28 Days Qty: 90 0RF nitroglycerin [Nitrostat] 0.4 mg Tablet, Sublingual 0.4 mg SUBLINGUAL Q5M PRN (Reason: Chest Pain) Rx Instructions: do not exceed 3 doses per episode ranolazine 1,000 mg tablet extended release 12 hr 1,000 mg PO BID levothyroxine 175 mcg tablet 175 mcg PO QAM ondansetron HCl 4 mg tablet 4 mg PO Q6H PRN (Reason: Nausea And Vomiting) metronidazole 500 mg tablet 500 mg PO Q8H 7 Days Qty: 21 0RF ciprofloxacin HCl [Cipro] 500 mg tablet 500 mg PO BID Qty: 14 0RF Discontinued aspirin 81 mg Tablet,Delayed Release (Dr/Ec) 81 mg PO DAILY@07 Discharge Orders: Discharge Order (Routine); Ordered 12/22/23 Ordered By: Thom De La Cruz Referrals: William Chan MD [Primary Care Provider] - 4-7 days (We have notified your physician's clinic of the need for a follow-up appointment to be scheduled. If you have not heard from them within the next 2 business days, please call them directly. ) Jason Jefferson DO [Physician] - 1 month (for colonoscopy) Discharge Diet: Full LIquid Patient Instructions: Opioid Safety Activity Restrictions/Additional Instructions: Please finish your antibiotic course that you already have ciprofloxacin and Flagyl I have given you stool softener along opioids Please follow-up with your PCP and see a general surgeon for colonoscopy I have given you 1 month of Eliquis which is a blood thinner, do not take aspirin for 1 month Regarding continuation of Eliquis please follow-up with Dr. Donovan. Normally we do recommend 2 to 3 weeks of anticoagulating agent after venous thrombophlebitis. Discharge Attestations Time Spent in Discharge Care*: greater than 30 min Status at Discharge: Cognitive status at discharge: cognitively intact , Behavioral status at discharge: cooperative , Quality Metrics Clinical Quality Measures [ No reported AMI, CVA or VTE this stay] Coding Level of Care Code Acute Code for Chg Fwd Diagnoses Inferior mesenteric vein thrombosis K55.069 Diabetes type 2, uncontrolled E11.65 Acquired hypothyroidism E03.9 Hypothyroidism type: acquired Diverticulitis K57.92 Acute hyponatremia E87.1 Urinary tract infection without hematuria, site unspecified N39.0 Urinary tract infection type: site unspecified Hematuria presence: without hematuria
[2023-12-22 10:53] VITALS: BP 120/71; PULSE 74; RESP 16; TEMP 36.6; O2SAT 97
== END 2023-12-22 10:55 | disposition home or self-care (01) | DRG 394 ==
LOC: ER 07:37 → MEDSURG 11:17
PROVIDERS: Emergency Medicine; Admitting Provider Internal Medicine; Emergency Provider Internal Medicine; PCP Family Medicine; Visit Provider Internal Medicine
DX: K55.049 Acute infarction of large intestine, extent unspecified (principal); E87.1 Hypo-osmolality and hyponatremia; K57.32 Diverticulitis of large intestine without perforation or abscess without bleeding; N17.9 Acute kidney failure, unspecified; N39.0 Urinary tract infection, site not specified; W18.30XA Fall on same level, unspecified, initial encounter; I25.10 Atherosclerotic heart disease of native coronary artery without angina pectoris; I25.2 Old myocardial infarction; I10 Essential (primary) hypertension; E78.5 Hyperlipidemia, unspecified; M79.7 Fibromyalgia; E03.9 Hypothyroidism, unspecified; E11.40 Type 2 diabetes mellitus with diabetic neuropathy, unspecified; E86.0 Dehydration; Z95.1 Presence of aortocoronary bypass graft; Z79.85 Long-term (current) use of injectable non-insulin antidiabetic drugs; Z87.891 Personal history of nicotine dependence; Z85.43 Personal history of malignant neoplasm of ovary
CPT/HCPCS: 36415; 36416; 70450; 71045; 74177; 80048; 80053; 81001; 82962; 83605; 83690; 83735; 84145; 85007; 85025; 85610; 85730; 86140; 87040; 87086; 93005; 94640; 96361; 96365; 96372; 96374; 96375; 96376; 99285; J1170; J1650; J1815; J1885; J1956; J2270; J2405; J2543; J2765; J3490; J7030; Q0162; Q9967

== ENCOUNTER 2024-01-05 06:00 | Outpatient (CLI) | payer MEDICARE, BC, SELFPAY | END 2024-01-05 06:01 | LOC: SOT 01-06 10:26 | PROVIDERS: PCP Family Medicine; Visit Provider Physician Assistant | DX: Z46.89 Encounter for fitting and adjustment of other specified devices (principal); M25.532 Pain in left wrist | CPT/HCPCS: 99213; L3908 ==

== ENCOUNTER → 2024-01-05 12:43 | Outpatient (BNVA) | payer MEDICARE, BC, SELFPAY | PROVIDERS: PCP Family Medicine; Visit Provider Physician Assistant | DX: Z98.890 Other specified postprocedural states (principal); Z46.89 Encounter for fitting and adjustment of other specified devices; M25.532 Pain in left wrist | CPT/HCPCS: 73110; 73610; 99213; L3908 ==

== ENCOUNTER → 2024-01-12 11:16 | Outpatient (BNVA) | payer MEDICARE, BC, SELFPAY | PROVIDERS: PCP Family Medicine; Visit Provider Internal Medicine | DX: R79.89 Other specified abnormal findings of blood chemistry (principal); E03.9 Hypothyroidism, unspecified; E11.65 Type 2 diabetes mellitus with hyperglycemia; E78.2 Mixed hyperlipidemia; E11.59 Type 2 diabetes mellitus with other circulatory complications; I25.10 Atherosclerotic heart disease of native coronary artery without angina pectoris; E11.40 Type 2 diabetes mellitus with diabetic neuropathy, unspecified; M79.7 Fibromyalgia; E87.1 Hypo-osmolality and hyponatremia; Z79.890 Hormone replacement therapy; Z79.85 Long-term (current) use of injectable non-insulin antidiabetic drugs; Z79.84 Long term (current) use of oral hypoglycemic drugs; S83.8X2A Sprain of other specified parts of left knee, initial encounter; W19.XXXA Unspecified fall, initial encounter | CPT/HCPCS: 20610; 73560; 73565; 80053; 80061; 82044; 83036; 84439; 84443; 99213; 99214; J3301 ==

== ENCOUNTER → 2024-04-03 10:59 | Outpatient (BNVA) | payer MEDICARE, BC, SELFPAY | PROVIDERS: PCP Family Medicine; Visit Provider Physician Assistant | DX: S83.8X2A Sprain of other specified parts of left knee, initial encounter (principal); X50.1XXA Overexertion from prolonged static or awkward postures, initial encounter | CPT/HCPCS: 99213 ==

== ENCOUNTER 2024-04-18 12:04 | Outpatient (CLI) | payer MEDICARE, BC, SELFPAY ==
--- NOTE | 2024-04-18 13:00 | MR_ITS ---
WS: [id number] MRI LEFT KNEE HISTORY: left knee pain COMPARISON: None available. Anterior cruciate ligament: Intact. Posterior cruciate ligament: Intact. Medial collateral ligament: Partial tear of the proximal MCL seen best on the axial sequences. There is additional very minimal marrow edema in the medial femoral condyle at the site of the MCL attachme nt. Posterior lateral corner structures: Intact. Medial menisci: Increased T2 signal throughout the central posterior horn but there is no extension t o articular surface. Anterior horn is normal. Lateral meniscus: Intact. Normal signal, size and shape. Extensor mechanism: Distal quadriceps tendon and patellar tendons are intact. Fluid and soft tissue: No joint effusion. No Gambino's cyst. Osseous and articular structures: Patellofemoral compartment: Normal. Medial compartment: No significant narrowing the medial compartment. There is very slight fraying and fissuring of the cartilage. There is a small amount of edema along the medial femoral condyle at the site of the MCL tear. Lateral compartment: Mild narrowing of the lateral compartment. Superficial chondromalacia along the weightbearing surface of the femoral condyle and tibial plateau. No marrow edema. Mixed signal lesion in the metadiaphysis of the femur consistent with an enchondroma measuring 2.5 cm in length. MR/MR knee LT wo con* [id number] IMPRESSION: 1. Partial tear proximal MCL. Adjacent soft tissue edema along the medial femo ral condyle. 2. Abnormal signal throughout the central posterior horn medial meniscus. No e xtension to an articular surface. 3. Superficial chondromalacia weightbearing surface of the lateral femoral con dyle and tibial plateau. 4. No ACL tear. 5. No fractures or marrow edema. 6. Enchondroma metadiaphysis of the femur.
== END 2024-04-18 12:05 | disposition home or self-care (01) ==
LOC: RAD 12:05
PROVIDERS: PCP Family Medicine; Visit Provider Physician Assistant
DX: S83.8X2A Sprain of other specified parts of left knee, initial encounter (principal); D16.22 Benign neoplasm of long bones of left lower limb; X58.XXXA Exposure to other specified factors, initial encounter
CPT/HCPCS: 73721

== ENCOUNTER → 2024-04-19 12:08 | Outpatient (BNVA) | payer MEDICARE, BC, SELFPAY | PROVIDERS: PCP Family Medicine; Visit Provider Internal Medicine | DX: E11.9 Type 2 diabetes mellitus without complications; E03.9 Hypothyroidism, unspecified; R79.89 Other specified abnormal findings of blood chemistry; E78.2 Mixed hyperlipidemia; E87.1 Hypo-osmolality and hyponatremia; Z79.890 Hormone replacement therapy; Z79.85 Long-term (current) use of injectable non-insulin antidiabetic drugs; Z79.84 Long term (current) use of oral hypoglycemic drugs | CPT/HCPCS: 80053; 80061; 82044; 83036; 84439; 84443; 99214 ==

== ENCOUNTER → 2024-04-20 08:55 | Outpatient (BNVA) | payer MEDICARE, BC, SELFPAY | PROVIDERS: PCP Family Medicine; Visit Provider Physician Assistant | DX: S83.412A Sprain of medial collateral ligament of left knee, initial encounter (principal); M17.12 Unilateral primary osteoarthritis, left knee; X58.XXXA Exposure to other specified factors, initial encounter | CPT/HCPCS: 20610; 99213; J3301 ==

== ENCOUNTER 2024-05-01 11:07 | Outpatient (RCR) | payer MEDICARE, BC, SELFPAY | END 2024-05-20 23:59 | disposition home or self-care (01) | LOC: SPT 11:07 | PROVIDERS: PCP Family Medicine; Visit Provider Physician Assistant | DX: Z98.890 Other specified postprocedural states (principal) | CPT/HCPCS: L1812 ==

== ENCOUNTER → 2024-05-02 09:53 | Outpatient (BNVA) | payer MEDICARE, BC, SELFPAY | PROVIDERS: PCP Family Medicine; Visit Provider Family Medicine | DX: R25.2 Cramp and spasm (principal); Z79.899 Other long term (current) drug therapy | CPT/HCPCS: 80048; 83735 ==

== ENCOUNTER 2024-07-09 08:52 | Outpatient (CLI) | payer MEDICARE, BC, SELFPAY ==
[2024-07-09 09:39] LABS: Alanine Aminotransferase 13 U/L (0-33); Albumin Level 3.9 g/dL (3.5-5.2); Alkaline Phosphatase 105 U/L (35-105); Blood Urea Nitrogen 17 mg/dL (8-23); Calcium 9.1 mg/dL (8.5-10.5); Carbon Dioxide 20 mmol/L (22-29); Chol HDL Ratio 3.61 mg/dL (0.0-4.40); Cholesterol 220 mg/dL (0-200); Globulin 2.8 g/dL (1.3-4.6); Glucose 236 mg/dL (65-115); HDL Cholesterol 61 mg/dL (60-100); LDL Cholesterol Calculated 122 mg/dL (50-129); Total Bilirubin 0.6 mg/dL (0.15-1.2); Total Protein 6.7 g/dL (6.6-8.7); Triglycerides 186 mg/dL (0-150)
[2024-07-09 09:41] LABS: Estmated Average Glucose 200; Hemoglobin A1C 8.6 % (4.0-6.0)
[2024-07-09 09:43] LABS: Aspartate Amino Transferase 13 U/L (0-32); Potassium 4.4 mmol/L (3.5-5.1)
[2024-07-09 10:01] LABS: Thyroid Stimulating Hormone 1.13 uIU/mL (0.27-4.20)
[2024-07-09 10:02] LABS: Anion Gap 18.4 (5-19); Chloride 102 mmol/L (98-107); Osmolality Calculated 291 mOsm/kg (285-295); Sodium 136 mmol/L (136-145)
[2024-07-09 15:04] LABS: Creatinine Urine, Random 126 mg/dL (28-217); Microalbumin Random Urine 7 ug/dL (0-20)
[2024-07-09 15:06] LABS: Microalbum Creatinine Ratio Ur 56 mg/dL (0-20)
== END 2024-07-09 08:53 | disposition home or self-care (01) ==
LOC: LAB 08:56
PROVIDERS: PCP Family Medicine; Visit Provider Internal Medicine
DX: R79.89 Other specified abnormal findings of blood chemistry (principal); E03.9 Hypothyroidism, unspecified; E11.65 Type 2 diabetes mellitus with hyperglycemia; E78.2 Mixed hyperlipidemia; E78.5 Hyperlipidemia, unspecified
CPT/HCPCS: 36415; 80053; 80061; 82044; 83036; 84439; 84443

== ENCOUNTER → 2024-07-12 11:45 | Outpatient (BNVA) | payer MEDICARE, BC, SELFPAY | PROVIDERS: PCP Family Medicine; Visit Provider Internal Medicine | DX: R79.89 Other specified abnormal findings of blood chemistry (principal); E78.2 Mixed hyperlipidemia; E87.1 Hypo-osmolality and hyponatremia; E78.5 Hyperlipidemia, unspecified; Z79.890 Hormone replacement therapy; Z79.84 Long term (current) use of oral hypoglycemic drugs | CPT/HCPCS: 99214 ==

== ENCOUNTER 2024-08-18 09:47 | Emergency (ER) | payer MEDICARE, BC, SELFPAY ==
[2024-08-18 09:47] VITALS: BP 152/94; PULSE 94; RESP 15; TEMP 36.7; O2SAT 93; BMI 29.0
[2024-08-18 10:23] LABS: Basophils # 0.1 10^3/uL (0.0-0.1); Basophils % 0.7 %; Eosinophils # 0.2 10^3/uL (0.0-0.8); Eosinophils % 2.7 %; Hematocrit 42.2 % (36-47); Lymphocytes # 2.1 10^3/uL (0.8-4.8); Lymphocytes % 31.3 %; Mean Corpuscular Hemoglobin 31.4 pg (27-33); Mean Corpuscular Volume 98.1 fl (85-98); Mean Platelet Volume 9.7 fL (7.4-10.4); Monocytes # 0.6 10^3/uL (0.2-0.9); Monocytes % 9.1 %; Neutrophils # 3.73 10^3/uL (1.8-7.7); Neutrophils % 55.6 %; Nucleated Red Blood Cells % 0 %; Platelet Count 277 10^3/cmm (157-399); Red Cell Distribution Width 11.9 % (12.1-15.1); White Blood Count 6.71 10^3/uL (3.29-11.43)
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
[2024-08-18 10:44] LABS: Alanine Aminotransferase 12 U/L (0-33); Albumin Level 4.1 g/dL (3.5-5.2); Alkaline Phosphatase 107 U/L (35-105); Anion Gap 16.3 (5-19); Aspartate Amino Transferase 14 U/L (0-32); Blood Urea Nitrogen 10 mg/dL (8-23); Calcium 9.9 mg/dL (8.5-10.5); Carbon Dioxide 23 mmol/L (22-29); Chloride 100 mmol/L (98-107); Creatinine Clr Calc Pharmacy 60.8673; Globulin 2.6 g/dL (1.3-4.6); Glucose 318 mg/dL (65-115); Osmolality Calculated 291 mOsm/kg (285-295); Potassium 4.3 mmol/L (3.5-5.1); Sodium 135 mmol/L (136-145); Total Bilirubin 0.3 mg/dL (0.15-1.2); Total Protein 6.7 g/dL (6.6-8.7)
[2024-08-18 10:49] LABS: INR 0.86 (0.8-1.2)
[2024-08-18 10:56] LABS: Ketone (Acetest) Serum Negative (Negative)
[2024-08-18 11:13] LABS: Thyroid Stimulating Hormone 1.72 uIU/mL (0.27-4.20)
[2024-08-18 11:14] VITALS: BP 165/94; O2SAT 100
[2024-08-18] MEDS: sodium chloride 0.9% 1,000 ML 999 ML IV (11:14)
[2024-08-18] MEDS: ketorolac 30 mg/mL INJ 15 MG IVP (11:14)
--- NOTE | 2024-08-18 11:15 | PC.NURSE ---
gait unsteady during pt ambulation to bathroom, pt swaying
[2024-08-18 11:24] LABS: Bilirubin Urine 1+ (Negative); Blood Urine Negative (Negative); Glucose Urine UA 3+ (Normal); Ketones Urine Negative (Negative); Leukocyte Esterase Urine 1+ (Negative); Nitrate Urine Positive (Negative); Protein Urine Negative (Negative); Specific Gravity, Urine 1.015 (1.005-1.030); Urine Appearance Clear (CLEAR)
[2024-08-18 11:25] LABS: Urine Color Orange (Yellow)
[2024-08-18 11:29] LABS: Add Urine Microscopic? YES; RBC Urine 0-2 /hpf (0-2); Squamous Epithelial Cell Urine 0-5 /hpf (0-5)
[2024-08-18 11:31] LABS: Amphetamines Screen Urine Negative (Negative); Barbiturates Screen Urine Negative (Negative); Benzodiazepines Screen Urine Negative (Negative); Cocaine Screen Urine Negative (Negative); Opiate Screen Urine Negative (Negative); PCP Screen Urine Negative (Negative); THC Screen Urine Negative (Negative)
[2024-08-18 11:40] LABS: Bacteria Urine 1+ /hpf; UA Slide Review UA Slide Review Perf
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
[2024-08-18] MEDS: ciprofloxacin 500 mg Tablet PO (11:59)
[2024-08-18 12:27] LABS: Add Urine Culture? Yes
[2024-08-18 12:47] VITALS: PULSE 93; O2SAT 95
--- NOTE | 2024-08-18 13:14 | PC.NURSE ---
pt left ER with son
== END 2024-08-18 13:11 | disposition home or self-care (01) ==
PROVIDERS: Family Medicine; Emergency Provider Emergency Medicine; PCP Family Medicine
DX: N39.0 Urinary tract infection, site not specified (principal); M79.18 Myalgia, other site; V89.2XXA Person injured in unspecified motor-vehicle accident, traffic, initial encounter
CPT/HCPCS: 36415; 70450; 80053; 80306; 81001; 82009; 84443; 85025; 85610; 86140; 87086; 96374; 99284; J1885; J7030

== ENCOUNTER → 2024-08-27 15:24 | Outpatient (BNVA) | payer MEDICARE, BC, SELFPAY | PROVIDERS: PCP Family Medicine; Visit Provider Family Medicine | DX: R30.0 Dysuria (principal) | CPT/HCPCS: 81000; 87086 ==

== ENCOUNTER → 2024-09-04 14:44 | Outpatient (BNVA) | payer MEDICARE, BC, SELFPAY | PROVIDERS: PCP Family Medicine; Visit Provider Family Medicine | DX: M79.10 Myalgia, unspecified site (principal) | CPT/HCPCS: 86140; 86160; 86162; 86235; 86255; 86376 ==

== ENCOUNTER → 2024-10-05 09:18 | Outpatient (BNVA) | payer MEDICARE, BC, SELFPAY | PROVIDERS: PCP Family Medicine; Referring Provider Family Medicine; Visit Provider Internal Medicine Cardiovascular Disease | DX: I25.119 Atherosclerotic heart disease of native coronary artery with unspecified angina pectoris; I73.9 Peripheral vascular disease, unspecified; M79.7 Fibromyalgia | CPT/HCPCS: 99214 ==

== ENCOUNTER 2024-11-06 15:25 | Outpatient (CLI) | payer MEDICARE, BC, SELFPAY ==
[2024-11-06 16:15] LABS: Estmated Average Glucose 286; Hemoglobin A1C 11.6 % (4.0-6.0)
[2024-11-06 16:18] LABS: Creatinine Urine, Random 34 mg/dL (28-217); Microalbum Creatinine Ratio Ur 29 mg/dL (0-20); Microalbumin Random Urine 1 ug/dL (0-20)
[2024-11-06 16:24] LABS: Alanine Aminotransferase 13 U/L (0-33); Albumin Level 4.1 g/dL (3.5-5.2); Alkaline Phosphatase 128 U/L (35-105); Anion Gap 16.3 (5-19); Aspartate Amino Transferase 10 U/L (0-32); Blood Urea Nitrogen 13 mg/dL (8-23); Calcium 9.2 mg/dL (8.5-10.5); Carbon Dioxide 25 mmol/L (22-29); Chloride 95 mmol/L (98-107); Chol HDL Ratio 3.04 mg/dL (0.0-4.40); Cholesterol 158 mg/dL (0-200); Free T4 Free Thyroxine 1.73 ng/dL (0.82-1.77); Globulin 2.7 g/dL (1.3-4.6); HDL Cholesterol 52 mg/dL (60-100); LDL Cholesterol Calculated 60 mg/dL (50-129); LDL HDL Ratio 1.15 RATIO (0.00-3.22); Osmolality Calculated 303 mOsm/kg (285-295); Potassium 4.3 mmol/L (3.5-5.1); Sodium 132 mmol/L (136-145); Thyroid Stimulating Hormone 0.11 uIU/mL (0.27-4.20); Total Bilirubin 0.5 mg/dL (0.15-1.2); Total Protein 6.8 g/dL (6.6-8.7); Triglycerides 231 mg/dL (0-150)
[2024-11-06 16:28] LABS: Glucose 623 mg/dL (65-115)
== END 2024-11-06 15:26 | disposition home or self-care (01) ==
LOC: LAB 15:27
PROVIDERS: PCP Family Medicine; Visit Provider Internal Medicine
DX: E78.2 Mixed hyperlipidemia (principal); R79.89 Other specified abnormal findings of blood chemistry; E87.1 Hypo-osmolality and hyponatremia
CPT/HCPCS: 36415; 80053; 80061; 82044; 83036; 84439; 84443

== ENCOUNTER → 2024-11-07 11:26 | Outpatient (BNVA) | payer MEDICARE, BC, SELFPAY | PROVIDERS: PCP Family Medicine; Visit Provider Internal Medicine | DX: R79.89 Other specified abnormal findings of blood chemistry (principal); E78.2 Mixed hyperlipidemia; E87.1 Hypo-osmolality and hyponatremia; E11.65 Type 2 diabetes mellitus with hyperglycemia; Z79.84 Long term (current) use of oral hypoglycemic drugs; Z79.85 Long-term (current) use of injectable non-insulin antidiabetic drugs | CPT/HCPCS: 99214 ==

== ENCOUNTER → 2024-12-12 10:42 | Outpatient (BNVA) | payer MEDICARE, BC, SELFPAY | PROVIDERS: PCP Family Medicine; Referring Provider Family Medicine; Visit Provider Internal Medicine Rheumatology | DX: Z11.1 Encounter for screening for respiratory tuberculosis (principal); Z11.59 Encounter for screening for other viral diseases; L40.50 Arthropathic psoriasis, unspecified; R76.8 Other specified abnormal immunological findings in serum; Z79.899 Other long term (current) drug therapy | CPT/HCPCS: 36415; 72100; 72202; 73130; 73562; 73630; 82306; 86140; 86200; 86431; 86480; 86704; 86803; 87340; 99204 ==

== ENCOUNTER → 2025-01-29 12:19 | Outpatient (BNVA) | payer MEDICARE, BC, SELFPAY | PROVIDERS: PCP Family Medicine; Visit Provider Obstetrics & Gynecology | DX: N81.10 Cystocele, unspecified (principal) | CPT/HCPCS: 76857 ==

== ENCOUNTER 2025-02-25 14:20 | Emergency (ER) | payer MEDICARE, BC, SELFPAY ==
--- NOTE | 2025-02-25 14:22 | XR_ITS ---
WS: [id number] Exam: XR chest 1V portable [id number] Date/Time of Exam: 02/25/2025 2:34 PM Reason For Exam: cp Comparison 09/24/2024. The lungs are fully expanded and clear. Cardiomediastinal silhouette is unremarkable. Signs of previous CABG surgery and median sternotomy. Bony structures are intact. XR/XR chest 1V portable [id number] IMPRESSION: 1. No acute cardiopulmonary finding. Stable.
--- NOTE | 2025-02-25 14:23 | ECG_ITS ---
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 Measurements Intervals [place] Rate: 94 P: 75 MT: 142 QRS: 32 QRSD: 98 T: 86 QT: 348 QTc: 436 Interpretive Statements SINUS RHYTHM POSSIBLE ANTERIOR MYOCARDIAL INFARCTION , OF INDETERMINATE AGE [30 ms Q WAVE IN V3/V4, OR R < 0.2 mV IN V4] Compared to ECG 09/24/2024 20:47:33 Myocardial infarct finding now present T-wave abnormality no longer present Electronically Signed On 02-25-2025 22:24:02 CDT by Edmar Griffith M.D. [email or web address]
[2025-02-25 14:25] VITALS: BP 113/76; PULSE 95; RESP 16; TEMP 37.2; O2SAT 97
[2025-02-25 15:21] LABS: Basophils # 0.1 10^3/uL (0.0-0.1); Basophils % 0.6 %; Eosinophils # 0.1 10^3/uL (0.0-0.8); Eosinophils % 1.7 %; Hematocrit 45.7 % (36-47); Lymphocytes # 1.5 10^3/uL (0.8-4.8); Lymphocytes % 18.5 %; Mean Corpuscular HGB Conc 31.9 g/dL (30-55); Mean Corpuscular Hemoglobin 30.2 pg (27-33); Mean Corpuscular Volume 94.4 fl (85-98); Mean Platelet Volume 10.7 fL (7.4-10.4); Monocytes # 0.5 10^3/uL (0.2-0.9); Neutrophils # 6.05 10^3/uL (1.8-7.7); Neutrophils % 72.8 %; Nucleated Red Blood Cells % 0 %; Platelet Count 217 10^3/cmm (157-399); Red Blood Count 4.84 10^6/uL (3.85-5.65); Red Cell Distribution Width 11.8 % (12.1-15.1); White Blood Count 8.31 10^3/uL (3.29-11.43)
[2025-02-25 15:33] LABS: INR 0.81 (0.8-1.2)
[2025-02-25 15:44] LABS: Troponin(5th) Baseline 13 ng/L (0-10)
[2025-02-25 15:52] LABS: Alanine Aminotransferase 14 U/L (0-33); Albumin Level 4.2 g/dL (3.5-5.2); Alkaline Phosphatase 124 U/L (35-105); Anion Gap 17.4 (5-19); Aspartate Amino Transferase 11 U/L (0-32); Blood Urea Nitrogen 18 mg/dL (8-23); Calcium 9.8 mg/dL (8.5-10.5); Carbon Dioxide 23 mmol/L (22-29); Chloride 99 mmol/L (98-107); Creatinine Clr Calc Pharmacy 67.8982; Globulin 2.7 g/dL (1.3-4.6); Glucose 349 mg/dL (65-115); Lipase 32 U/L (13-60); NT Pro B Type Natriuretic Pept 106 pg/mL (0-125); Osmolality Calculated 296 mOsm/kg (285-295); Potassium 4.4 mmol/L (3.5-5.1); Sodium 135 mmol/L (136-145); Total Bilirubin 0.4 mg/dL (0.15-1.2); Total Protein 6.9 g/dL (6.6-8.7)
--- NOTE | 2025-02-25 16:34 | ED_ITS ---
HPI - Chest Pain 2 General: Chief Complaint: Chest Pain Stated Complaint: cp & sob Time Seen by Provider: 02/25/25 16:00 Source: patient Mode of arrival: ambulatory Limitations: no limitations History of Present Illness: 74-year-old female history of coronary a rtery disease states that she started having chest pains today roughly at 1 PM. States it has been a sharp pain in the center of her chest did improve with nitro states pain is currently 3 out of 10 she had some slight nausea she denies any vomiting denies any shortness of breath denies any cough or fever. Associated symptoms: Reports dyspnea; Deny abdominal pain, fever(s), nausea or vomiting Related Data Home Medications ?Medication ?Instructions ?Recorded ?Confirmed evolocumab 140 mg/mL subcutaneous 140 mg SUBCUT .Q2WEE [place] DIRECTED 09/23/22 02/25/25 pen injector (Repatha SureClick) nitroglycerin 0.4 mg sublingual 0.4 mg sublingual Q5M PRN Chest 12/16/23 02/25/25 tablet (Nitrostat) Pain levothyroxine 112 mcg tablet 112 mcg PO QAM 02/25/25 0 02/25/25 ondansetron HCl 4 mg tablet 4 mg PO Q6H PRN Nausea And Vomiting 02/25/25 02/25/25 Previous Rx's ?Medication ?Instructions ?Recorded pen needle, diabetic 31 gauge x #100 ea 12/01/2104/05 (BD Ultra-Fine Short Pen Needle) blood sugar diagnostic #100 ea 12/30/21 blood-glucose meter #1 ea 12/30/21 lancets 31 gauge #100 ea 12/30/21 blood sugar diagnostic (OneTouch #360 ea 12/31/21 Ultra Test strips) wheel chair #1 ea 04/26/23 Cockup Wrist Brace #1 ea 01/05/24 Hinged Knee Brace #1 ea 04/20/24 blood sugar diagnostic (Accu-Chek #100 ea 11/07/24 Guide test strips) blood-glucose meter (Accu-Chek #1 ea 11/07/24 Guide Glucose Meter) ranolazine 500 mg tablet,extended 500 mg PO DAILY #90 tabs 12/20/24 release,12 hr zolpidem 10 mg tablet 10 mg PO BEDTIME PRN Sleep # 30 tabs 02/06/25 hydrocodone 10 mg-acetaminophen 1 tab PO TID PRN pain 1 month #75 02/22/25 325 mg tablet tabs tirzepatide 7.5 mg/0.5 mL 7.5 mg (0.5 mL) SUBCUT Q7D # 2 mL 02/22/25 subcutaneous pen injector Allergies Allergy/AdvReac Type Severity Reaction Status Date / Time ragweed pollen Allergy Unknown Verified 02/25/25 14:28 Review of Systems 2 Const: Denies: fever(s), chills, body aches or change in appetite ENMT: Denies: throat pain or dental pain Card: Reports: chest pain Resp: Reports: dyspnea GI: Denies: abdominal pain, nausea, vomiting or diarrhea Musc: Denies: neck pain or back pain Skin/Breast: Denies: rash Neuro: Denies: headache(s) PFSH ED 2 PFSH: Medical History Immunization counseling High risk medication use Plaque psoriasis Psoriatic arthritis Fibromyalgia On as needed hydrocodone and baclofen Essential hypertension Inferior mesenteric vein thrombosis Diverticulitis Septic thrombophlebitis Acute hyponatremia Diverticulitis Septic thrombophlebitis of superior mesenteric vein GERD (gastroesophageal reflux disease) Coronary artery disease due to type 2 diabetes mellitus Diabetes type 2, uncontrolled Migraine UTI (urinary tract infection) Elevated troponin Atherosclerotic heart disease [place] coronary artery w/angina pectoris Non-ST elevated myocardial infarction (non-STEMI) Benign essential HTN Dyslipidemia (high LDL; low HDL) Hyperlipidemia Not currently on treatment Hypothyroid Ovarian cancer Treated with hysterectomy with salpingo-oophorectomy Uncontrolled type 2 diabetes with neuropathy Surgical History (Reviewed 01/16/25 @ 15:08 by Hiral Alanis [facility]) Status post aorto-coronary artery bypass graft H/O: hysterectomy Hx of cholecystectomy Hx of appendectomy History of tonsillectomy Family History Sister Cancer uterine/cervix CAD (coronary artery disease) Diabetes Mother Cancer cervix Father CAD (coronary artery disease) Brother CAD (coronary artery disease) Diabetes Grandmother Diabetes Denies family history of Clotting disorder Dementia Chronic kidney disease (CKD) Suicide Anesthesia complication Bleeding disorder Lung disease Stroke Social History Smoking and tobacco/nicotine status: never used tobacco/nicotine Second hand smoke exposure: No Alcohol intake: never Substance/Drug Use: never Additional social history: Smoked for few years in her 20s Lives independently: Yes Household members: none Female Reproductive History: Para: 2 Physical Exam 2 Const: COMMON NORMALS: no acute distress, patient oriented x3 and healthy appearing HENMT: COMMON NORMALS: normocephalic and atraumatic HEAD & SCALP: n ormocephalic and atraumatic Eye: COMMON NORMALS: Equal, round and reactive pupils present and EOMs intact bilaterally PUPIL: Yes Equal, round and reactive pupils present Neck/C-Spine: COMMON NORMALS: full ROM and supple Chest: COMMONS NORMALS: normal inspection of the chest and normal palpation of entire chest wall Resp: COMMON NORMALS: normal respiratory effort, No retractions, No use of accessory muscles and clear to auscultation bilaterally AUSCULTATION: clear to auscultation bilaterally Cardio: COMMON NORMALS: regular rate, regular rhythm and No murmurs present (Cardio) RATE: regular rate RHYTHM: regular rhythm GI: COMMON NORMALS: Normal to inspection, nondistended, normoactive bowel sounds present, Soft to palpation, non-tender and no masses PALPATION: Yes Soft to palpation Extremity: COMMON NORMALS: normal to inspection and full ROM Neuro: COMMON NORMALS: patient oriented x3, moves all extremities and no focal motor deficits Psych: COMMON NORMALS: mental status grossly normal, Normal thought process present and cooperative THOUGHT PROCESS: Normal thought process present Skin: COMMON NORMALS: no rashes or lesions noted and no wounds GENERAL SKIN EXAM: no rashes or lesions noted Course 2 Vital Signs: Vital signs: Vital Signs Temperature 98.9 F 02/25/25 14:25 Pulse Rate 78 02/25/25 17:12 Respiratory Rate 18 02/25/25 17:12 Blood Pressure 126/83 02/25/25 17:12 Pulse Oximetry 91 02/25/25 17:12 Oxygen Delivery Me thod Room Air 02/25/25 17:12 MDM - Chest Pain Medical Decision Making Patient presents for chest pain that is improved here initial repeat troponin here negative no signs of acute coronary syndrome no signs of pulmonary embolism or dissection she feels improved like go home I feel she is stable for discharge she is to follow-up with her PCP and return if worsening she understands agrees to plan Medical Records I reviewed the patient's medical records. Lab Data I reviewed the patient's lab results. 02/25/25 14:54 02/25/25 14:54 Radiology Impressions Chest X-Ray 02/25/25 14:22 IMPRESSION: 1. No acute cardiopulmonary finding. Stable. Laboratory Results WBC 8.31 10^3/uL (3.29-11.43) 02/25/25 14:54 RBC 4.84 10^6/uL (3.85-5.65) 02/25/25 14:54 Hgb 14.60 g/dL (11.27-16.99) 02/25/25 14:54 Hct 45.7 % (36-47) 02/25/25 14:54 MCV 94.4 fl (85-98) 02/25/25 14:54 MCH 30.2 pg (27-33) 02/25/25 14:54 MCHC 31.9 g/dL (30-55) 02/25/25 14:54 RDW 11.8 % (12.1-15.1) L 02/25/25 14:54 Plt Count 217 10^3/cmm (157-399) 02/25/25 14:54 MPV 10.7 fL (7.4-10.4) H 02/25/25 14:54 Neut % (Auto) 72.8 % 02/25/25 14:54 Lymph % (Auto) 18.5 % 02/25/25 14:54 [place] % (Auto) 6.0 % 02/25/25 14:54 Eos % (Auto) 1.7 % 02/25/25 14:54 Baso % (Auto) 0.6 % 02/25/25 14:54 Neut # (Auto) 6.05 10^3/uL (1.8-7.7) 02/25/25 14:54 Lymph # (Auto) 1.5 10^3/uL (0.8-4.8) 02/25/25 14:54 [place] # (Auto) 0.5 10^3/uL (0.2-0.9) 02/25/25 14:54 Eos # (Auto) 0.1 10^3/uL (0.0-0.8) 02/25/25 14:54 Baso # (Auto) 0.1 10^3/uL (0.0-0.1) 02/25/25 14:54 Nucleated RBC % (auto) 0 % 02/25/25 14:54 Nucleated RBCs # 0.0 /100WBC 02/25/25 14:54 PT 11.80 SECONDS (12.1-14.9) L 02/25/25 14:54 INR 0.81 (0.8-1.2) 02/25/25 14:54 Sodium 135 mmol/L (136-145) L 02/25/25 14:54 Potassium 4.4 mmol/L (3.5-5.1) 02/25/25 14:54 Chloride 99 mmol/L (98-107) 02/25/25 14:54 Carbon Dioxide 23 mmol/L (22-29) 02/25/25 14:54 Anion Gap 17.4 (5-19) 02/25/25 14:54 BUN 18 mg/dL (8-23) 02/25/25 14:54 Creatinine 0.8 mg/dL (0.5-0.9) 02/25/25 14:54 GFR Calculation Not Reportable 02/25/25 14:54 Glucose 349 mg/dL (65-115) H 02/25/25 14:54 Calculated Osmolality 296 mOsm/kg (285-295) H 02/25/25 14:54 Calcium 9.8 mg/dL (8.5-10.5) 02/25/25 14:54 Total Bilirubin 0.4 mg/dL (0.15-1.2) 02/25/25 14:54 AST 11 U/L (0-32) 02/25/25 14:54 ALT 14 U/L (0-33) 02/25/25 14:54 Alkaline Phosphatase 124 U/L (35-105) H 02/25/25 14:54 Troponin T Baseline 13 ng/L (0-10) H 02/25/25 14:54 Troponin T 120 Minute 13.02 ng/L (0-10) H 02/25/25 16:38 Delta Troponin T 0.02 ABS# (0-10) 02/25/25 16:38 NT-Pro-B Natriuret Pep 106 pg/mL (0-125) 02/25/25 14:54 Total Protein 6.9 g/dL (6.6-8.7) 02/25/25 14:54 Albumin 4.2 g/dL (3.5-5.2) 02/25/25 14:54 Globulin 2.7 g/dL (1.3-4.6) 02/25/25 14:54 Lipase 32 U/L (13-60) 02/25/25 14:54 All radiology interpretation(s) finalized by discharge EKG Data EKG 2: I personally reviewed and interpreted this EKG as follows: EKG interpretation date: 02/25/25 EKG interpretation time: 16:50 Interpretation: nsr hr [address] elevation qrs 90 qtc 402 Discharge Plan Discharge Patient Disposition: Home Clinical Impression: Chest pain Condition: Stable Prescriptions: No Action (DME) blood-glucose meter Misc See Rx Instructions .Route Qty: 1 0RF Rx Instructions: Check BS 4 times a day. (DME) blood sugar diagnostic Strip See Rx Instructions .Route Qty: 100 3RF Rx Instructions: Check Bs 4 times a day. (DME) lancets 31 gauge misc See Rx Instructions .Route Qty: 100 3RF Rx Instructions: Check BS 4 times a day. (DME) OneTouch Ultra Test Strip See Rx Instructions .Route Qty: 360 3RF Rx Instructions: test blood sugar 4 times day (DME) wheel chair See Rx Instructions .Route .MEDSUPPLY Qty: 1 0RF Rx Instructions: As directed (DME) Hinged Knee Brace See Rx Instructions .Route .MEDSUPPLY Qty: 1 0RF Rx Instructions: As directed (DME) blood-glucose meter [Accu-Chek Guide Glucose Meter] Misc See Rx Instructions .Route Qty: 1 0RF Rx Instructions: check blood sugars 4x/day-Per insurance preference (DME) Accu-Chek Guide test strips Strip See Rx Instructions .Route Qty: 100 3RF Rx Instructions: check blood sugar 4x/day-per insurance preference Repatha SureClick 140 mg/mL pen injector 140 mg SUBCUT .L0XTQON DIRECTED (DME) Cockup Wrist Brace See Rx Instructions .Route .MEDSUPPLY Qty: 1 0RF Rx Instructions: As directed (DME) pen needle, diabetic [BD Ultra-Fine Short Pen Needle] 31 gauge x 5/16 needle See Rx Instructions .Route Qty: 100 3RF Rx Instructions: As directed ranolazine 500 mg tablet extended release 12 hr 500 mg PO DAILY Qty: 90 3RF zolpidem 10 mg tablet 10 mg PO BEDTIME PRN (Reason: Sleep) Qty: 30 5RF hydrocodone-acetaminophen 10-325 mg tablet 1 tab PO TID PRN (Reason: pain) 30 Days Qty: 75 0RF tirzepatide 7.5 mg/0.5 mL pen injector 7.5 mg SUBCUT Q7D Qty: 2 0RF Rx Instructions: inject 10mg weekly on Tuesday nitroglycerin [Nitrostat] 0.4 mg Tablet, Sublingual 0.4 mg SUBLINGUAL Q5M PRN (Reason: Chest Pain) Rx Instructions: do not exceed 3 doses per episode ondansetron HCl 4 mg tablet 4 mg PO Q6H PRN (Reason: Nausea And Vomiting) levothyroxine 112 mcg tablet 112 mcg PO QAM Discharge Orders: Discharge ED (Routine); Ordered 02/25/25 Ordered By: Kiersten Dallas Referrals: William Chan MD [Primary Care Provider] - 4-7 days Discharge Diet: Advance as tolerated Discharge Activity: Resume usual activity Patient Instructions: Chest Pain (ED) Print Language: Scottish Coding Level of Care Code ED Payroll Administrative Assistant for Dev Flood
[2025-02-25] MEDS: morphine 4 mg/mL SDV 1 mL IM (16:49)
[2025-02-25] MEDS: ondansetron 2 mg/ML SDV 2 mL 4 MG IM (16:49)
--- NOTE | 2025-02-25 16:50 | ECG_ITS ---
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 Measurements Intervals [place] Rate: 78 P: 71 IA: 159 QRS: 19 QRSD: 90 T: 75 QT: 369 QTc: 421 Interpretive Statements SINUS RHYTHM Compared to ECG 02/25/2025 14:23:39 Myocardial infarct finding no longer present Electronically Signed On 02-25-2025 22:26:39 CDT by Edmar Griffith M.D. [email or web address]
[2025-02-25 16:51] VITALS: BP 119/95; PULSE 93; RESP 20; O2SAT 92
[2025-02-25 17:09] LABS: Troponin 5 2HR 13.02 ng/L (0-10); Troponin 5 2HR Delta 0.02 ABS# (0-10)
[2025-02-25 17:12] VITALS: BP 126/83; PULSE 78; RESP 18; O2SAT 91
== END 2025-02-25 17:35 | disposition home or self-care (01) ==
PROVIDERS: Emergency Provider Emergency Medicine; PCP Family Medicine
DX: R07.9 Chest pain, unspecified (principal); Z85.43 Personal history of malignant neoplasm of ovary; E78.5 Hyperlipidemia, unspecified; I25.119 Atherosclerotic heart disease of native coronary artery with unspecified angina pectoris; E11.9 Type 2 diabetes mellitus without complications; I10 Essential (primary) hypertension
CPT/HCPCS: 36415; 71045; 80053; 83690; 83880; 84484; 85025; 85610; 93005; 96372; 99285; J2270; J2405

== ENCOUNTER 2025-03-12 09:21 | Outpatient (CLI) | payer MEDICARE, BC, SELFPAY ==
[2025-03-12 10:19] LABS: Creatinine Urine, Random 56 mg/dL (28-217); Microalbum Creatinine Ratio Ur 18 mg/dL (0-20); Microalbumin Random Urine 1 ug/dL (0-20)
[2025-03-12 10:54] LABS: Estmated Average Glucose 275; Hemoglobin A1C 11.2 % (4.0-6.0)
[2025-03-12 10:58] LABS: Alanine Aminotransferase 10 U/L (0-33); Albumin Level 4.3 g/dL (3.5-5.2); Alkaline Phosphatase 107 U/L (35-105); Anion Gap 16.7 (5-19); Aspartate Amino Transferase 11 U/L (0-32); Blood Urea Nitrogen 14 mg/dL (8-23); Calcium 9.4 mg/dL (8.5-10.5); Carbon Dioxide 27 mmol/L (22-29); Chloride 101 mmol/L (98-107); Chol HDL Ratio 3.43 mg/dL (0.0-4.40); Cholesterol 175 mg/dL (0-200); Free T4 Free Thyroxine 1.53 ng/dL (0.82-1.77); Globulin 2.9 g/dL (1.3-4.6); Glucose 276 mg/dL (65-115); HDL Cholesterol 51 mg/dL (60-100); LDL Cholesterol Calculated 80 mg/dL (50-129); LDL HDL Ratio 1.57 RATIO (0.00-3.22); Osmolality Calculated 300 mOsm/kg (285-295); Potassium 4.7 mmol/L (3.5-5.1); Sodium 140 mmol/L (136-145); Thyroid Stimulating Hormone 0.39 uIU/mL (0.27-4.20); Total Bilirubin 0.5 mg/dL (0.15-1.2); Total Protein 7.2 g/dL (6.6-8.7); Triglycerides 218 mg/dL (0-150)
[2025-03-13 09:33] LABS: C-Peptide 4.53 ng/mL (0.80-3.85)
== END 2025-03-12 09:22 | disposition home or self-care (01) ==
PROVIDERS: PCP Family Medicine; Visit Provider Internal Medicine
DX: R79.89 Other specified abnormal findings of blood chemistry (principal); E78.2 Mixed hyperlipidemia; E87.1 Hypo-osmolality and hyponatremia; E78.5 Hyperlipidemia, unspecified
CPT/HCPCS: 36415; 80053; 80061; 82044; 83036; 84439; 84443; 84681; 86337; 86341

== ENCOUNTER → 2025-03-14 09:36 | Outpatient (BNVA) | payer MEDICARE, BC, SELFPAY | PROVIDERS: PCP Family Medicine; Visit Provider Internal Medicine | DX: R79.89 Other specified abnormal findings of blood chemistry (principal); E78.2 Mixed hyperlipidemia; E87.1 Hypo-osmolality and hyponatremia | CPT/HCPCS: 99214 ==

== ENCOUNTER → 2025-04-02 09:32 | Outpatient (BNVA) | payer MEDICARE, BC, SELFPAY | PROVIDERS: PCP Family Medicine; Visit Provider Internal Medicine Cardiovascular Disease | DX: I87.2 Venous insufficiency (chronic) (peripheral) (principal); I25.10 Atherosclerotic heart disease of native coronary artery without angina pectoris; I10 Essential (primary) hypertension; E11.9 Type 2 diabetes mellitus without complications; Z79.4 Long term (current) use of insulin; Z79.85 Long-term (current) use of injectable non-insulin antidiabetic drugs; G62.9 Polyneuropathy, unspecified; Z95.1 Presence of aortocoronary bypass graft; I25.2 Old myocardial infarction; I83.813 Varicose veins of bilateral lower extremities with pain | CPT/HCPCS: 99204 ==

== ENCOUNTER 2025-04-17 09:09 | Outpatient (CLI) | payer MEDICARE, BC, SELFPAY ==
--- NOTE | 2025-04-17 09:30 | USR_ITS ---
PROCEDURE INFORMATION: Exam: US Duplex Lower Extremity Veins, Bilateral, Venous Insufficiency Exam date and time: 04/17/2025 9:58 AM Age: 74 years old Clinical indication: Screening exam; Eval for reflux; Additional info: Bilat varicose vein TECHNIQUE: Imaging protocol: Real-time duplex ultrasound of the extremities with 2-D pacheco scale, color Doppler flow and spectral waveform analysis including responses to compression and other maneuvers (when performed) with image documentation. Complete exam focused on the bilateral lower extremity veins for venous insufficiency. COMPARISON: No relevant prior studies available. FINDINGS: Right deep veins: Unremarkable. The common femoral, femoral, proximal profunda femoral and popliteal veins are patent without thrombus. Normal Doppler waveforms. Normal compressibility and/or augmentation response. No evidence of venous reflux. Right superficial veins: Saphenofemoral junction and greater saphenous veins are patent without thrombus. Reflux time: 1.47 seconds Left deep veins: Unremarkable. The common femoral, femoral, proximal profunda femoral and popliteal veins are patent without thrombus. Normal Doppler waveforms. Normal compressibility and/or augmentation response. No evidence of venous reflux. Left superficial veins: Saphenofemoral junction and greater saphenous veins are patent without thrombus. Reflux time: 1.11 seconds Soft tissues: Unremarkable. US/CV roverto dup insumaria esther [facility] [id number] IMPRESSION: No evidence of acute deep venous thrombosis. Reflux time as above.
== END 2025-04-17 09:10 | disposition home or self-care (01) ==
PROVIDERS: PCP Family Medicine; Visit Provider Internal Medicine Cardiovascular Disease
DX: I83.813 Varicose veins of bilateral lower extremities with pain (principal)
CPT/HCPCS: 93970

== ENCOUNTER → 2025-04-23 14:39 | Outpatient (BNVA) | payer MEDICARE, BC, SELFPAY | PROVIDERS: PCP Family Medicine; Visit Provider Family Medicine | DX: R30.0 Dysuria (principal); R53.1 Weakness | CPT/HCPCS: 81000; 87086 ==

== ENCOUNTER → 2025-05-14 08:25 | Outpatient (BNVA) | payer MEDICARE, BC, SELFPAY | PROVIDERS: PCP Family Medicine; Visit Provider Physician Assistant | DX: M17.11 Unilateral primary osteoarthritis, right knee (principal); S89.91XA Unspecified injury of right lower leg, initial encounter; W18.39XA Other fall on same level, initial encounter | CPT/HCPCS: 20610; 73560; 73565; 99213; J3301; J9999 ==

== ENCOUNTER → 2025-06-20 14:22 | Outpatient (BNVA) | payer MEDICARE, BC, SELFPAY | PROVIDERS: PCP Family Medicine; Visit Provider Family Medicine | DX: K57.92 Diverticulitis of intestine, part unspecified, without perforation or abscess without bleeding (principal) | CPT/HCPCS: 80053; 85025; 86140 ==

== ENCOUNTER 2025-06-23 16:20 | Emergency (ER) | payer MEDICARE, BC, SELFPAY ==
[2025-06-23 16:24] VITALS: BP 126/69; PULSE 82; TEMP 36.9; O2SAT 94; BMI 31.6
--- NOTE | 2025-06-23 16:32 | XRR_ITS ---
PROCEDURE INFORMATION: Exam: XR Left Foot Exam date and time: 06/23/2025 5:13 PM Age: 74 years old Clinical indication: Swelling, leg or foot; Prior surgery; Surgery date: 6+ months; Surgery type: Left ankle orif; Additional info: Lt foot pain/swelling; No known injury TECHNIQUE: Imaging protocol: Radiologic exam of the left foot. Views: 3 or more views. COMPARISON: CR XR foot LT min 3V* [id number] 12/12/2024 10:49 AM FINDINGS: Bones/joints: There is moderate osteopenia. There is no evidence of acute fracture or dislocation involving the foot. Old healed fractures post internal fixation with metallic hardware involving the distal tibia and fibula are again identified and unchanged. There is moderate plantar calcaneal spur and there is some spurring at the attachment of the Achilles tendon unchanged. There is some mild dorsal beaking from the distal surface of the navicular unchanged. Soft tissues: Normal. XR/XR foot LT min 3V* [id number] IMPRESSION: Old healed fractures and degenerative changes, stable compared with 12/12/2024.
--- NOTE | 2025-06-23 17:15 | USR_ITS ---
PROCEDURE INFORMATION: Exam: US Duplex Left Lower Extremity Veins, Limited Exam date and time: 06/23/2025 6:19 PM Age: 74 years old Clinical indication: Edema, localized; Lower extremity, left; Prior surgery; Surgery date: 6+ months; Surgery type: Unsure of dates-patient has history of ankle surgery; Additional info: Swelling, concern dvt TECHNIQUE: Imaging protocol: Real-time duplex ultrasound of the left extremity with 2-D pacheco scale, color Doppler flow and spectral waveform analysis including responses to compression and other maneuvers (when performed) with image documentation. Limited exam focused on the left lower extremity veins. COMPARISON: US CV roverto dup insuff [facility] [id number] 04/17/2025 9:58 AM FINDINGS: Left deep veins: Unremarkable. The common femoral, femoral, proximal profunda femoral and popliteal veins are patent without thrombus. Normal Doppler waveforms. Normal compressibility and/or augmentation response. Superficial veins: Greater saphenous vein at the saphenofemoral junction is patent without thrombus. Soft tissues: Unremarkable. US/CV venous duplex [facility] [id number] IMPRESSION: No evidence of deep vein thrombosis.
--- NOTE | 2025-06-23 17:18 | W.ED.EXTPRO ---
HPI - Extremity Problem General: Chief complaint: Extremity Problem,Nontraumatic Stated complaint: L Top of foot hurts Time Seen by Provider: 06/23/25 16:33 History of Present Illness: 74-year-old female presents with left foot pain that started yesterday with some pain in her posterior calf and some swelling in her calf. Patient reports that she is concerned for a blood clot. She reports that she was just recently on some antibiotics for diverticulitis. She denies any injury to the foot. Associated symptoms: Deny chest pain or fever(s) Related Data Home Medications ?Medication ?Instructions ?Recorded ?Confirmed evolocumab 140 mg/mL subcutaneous 140 mg SUBCUT .[id number] DIRECTED 09/23/22 06/20/25 pen injector (Reppat Romanick) nitroglycerin 0.4 mg sublingual 0.4 mg sublingual Q5M PRN Chest 12/16/23 06/20/25 tablet (Nitrostat) Pain levothyroxine 112 mcg tablet 112 mcg PO QAM 02/25/25 06/20/25 ondansetron HCl 4 mg tablet 4 mg PO Q6H PRN Nausea And Vomiting 02/25/25 06/20/25 Previous Rx's ?Medication ?Instructions ?Recorded pen needle, diabetic 31 gauge x #100 ea 12/01/2104/05 (BD Ultra-Fine Short Pen Needle) blood sugar diagnostic #100 ea 12/30/21 blood-glucose meter #1 ea 12/30/21 lancets 31 gauge #100 ea 12/30/21 blood sugar diagnostic (OneTouch #360 ea 12/31/21 Ultra Test strips) wheel chair #1 ea 04/26/23 Cockup Wrist Brace #1 ea 01/05/24 Hinged Knee Brace #1 ea 04/20/24 blood sugar diagnostic (Accu-Chek #100 ea 11/07/24 Guide test strips) blood-glucose meter (Accu-Chek #1 ea 11/07/24 Guide Glucose Meter) ranolazine 500 mg tablet,extended 500 mg PO DAILY #90 tabs 12/20/24 release,12 hr zolpidem 10 mg tablet 10 mg PO BEDTIME PRN Sleep #30 tabs 02/06/25 insulin glargine 100 unit/mL (3 10 unit (0.1 mL) SUBCUT QAM #15 mL 03/14/25 mL) subcutaneous pen (Lantus Solostar U-100 Insulin) tirzepatide 5 mg/0.5 mL See Rx Instructions .Route 04/26/25 subcutaneous pen injector .COMPLEX #2 mL (Mounjaro) Right Economy Knee Brace #1 ea 05/14/25 cane #1 ea 05/14/25 levothyroxine 112 mcg tablet See Rx Instructions .Route 05/14/25 .COMPLEX #90 tabs amoxicillin 500 mg-potassium 1 tab PO TID #30 tabs 06/20/25 clavulanate 125 mg tablet (Augmentin) hydrocodone 10 mg-acetaminophen 1 tab PO TID PRN pain 1 month #75 06/20/25 325 mg tablet tabs metronidazole 500 mg tablet 500 mg PO TID #30 tabs 06/20/25 doxycycline hyclate 100 mg capsule 100 mg PO BID #10 caps 06/23/25 Allergies Allergy/AdvReac Type Severity Reaction Status Date / Time ragweed pollen Allergy Unknown Verified 06/23/25 16:28 Review of Systems Const: Denies: fever(s) or chills Card: Denies: chest pain or palpitations Resp: Denies: dyspnea or wheezing GI: Denies: abdominal pain, nausea or vomiting Musc: Reports: extremity pain and extremity swelling Neuro: Denies: headache(s) or numbness in extremities PFSH ED PFSH: Medical History (Updated 06/23/25 @ 18:39 by Oumar Hernandez DO) Immunization counseling High risk medication use Plaque psoriasis Psoriatic arthritis Fibromyalgia On as needed hydrocodone and baclofen Essential hypertension Inferior mesenteric vein thrombosis Diverticulitis Septic thrombophlebitis Acute hyponatremia Diverticulitis Septic thrombophlebitis of superior mesenteric vein GERD (gastroesophageal reflux disease) Coronary artery disease due to type 2 diabetes mellitus Diabetes type 2, uncontrolled Migraine UTI (urinary tract infection) Elevated troponin 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 Non-ST elevated myocardial infarction (non-STEMI) Benign essential HTN Dyslipidemia (high LDL; low HDL) Hyperlipidemia Not currently on treatment Hypothyroid Ovarian cancer Treated with hysterectomy with salpingo-oophorectomy Uncontrolled type 2 diabetes with neuropathy Surgical History Status post aorto-coronary artery bypass graft H/O: hysterectomy Hx of cholecystectomy Hx of appendectomy History of tonsillectomy Family History Sister Cancer uterine/cervix CAD (coronary artery disease) Diabetes Mother Cancer cervix Father CAD (coronary artery disease) Brother CAD (coronary artery disease) Diabetes Grandmother Diabetes Denies family history of Clotting disorder Dementia Chronic kidney disease (CKD) Suicide Anesthesia complication Bleeding disorder Lung disease Stroke Social History Smoking and tobacco/nicotine status: never used tobacco/nicotine Second hand smoke exposure: No Alcohol intake: never Substance/Drug Use: never Additional social history: Smoked for few years in her 20s Lives independently: Yes Household members: none Female Reproductive History: Para: 2 Physical Exam Const: COMMON NORMALS: no acute distress, patient oriented x3 and alert Resp: COMMON NORMALS: normal respiratory effort, No use of accessory muscles and clear to auscultation bilaterally AUSCULTATION: clear to auscultation bilaterally Cardio: COMMON NORMALS: regular rate and regular rhythm RATE: regular rate RHYTHM: regular rhythm Extremity: LEFT LOWER EXTREMITY: Yes lower leg (Mild increased calf compared to right, posterior popliteal calf pain) and Yes foot & digits (Swelling and erythema of foot) Neuro: COMMON NORMALS: patient oriented x3 SENSORIUM/ORIENTATION: Yes alert Psych: COMMON NORMALS: mental status grossly normal, Normal thought process present, cooperative and normal affect THOUGHT PROCESS: Normal thought process present Course Vital Signs: Vital signs: Vital Signs Temperature 98.4 F 06/23/25 16:24 Pulse Rate 65 06/23/25 18:54 Blood Pressure 181/84 06/23/25 18:54 Pulse Oximetry 98 06/23/25 18:54 Oxygen Delivery Me thod Room Air 06/23/25 16:24 MDM - Extremity (Nontraumatic) Medical Decision Making Patient's x-ray shows no acute findings. Patient's negative for any DVT. She does have some warmth erythema questional some cellulitis on exam. She does have negative inflammatory markers. Due to her just recently being on Augmentin I will just really cover her with doxycycline and have her follow-up. She has no history of injury or trauma. Patient stable and discharged home Lab Data 06/23/25 18:06 Radiology Impressions Foot X-Ray 06/23/25 16:32 IMPRESSION: Old healed fractures and degenerative changes, stable compared with 12/12/2024. Venous Duplex 06/23/25 17:15 IMPRESSION: No evidence of deep vein thrombosis. Laboratory Results WBC 6.95 10^3/uL (3.29-11.43) 06/23/25 18:06 RBC 4.08 10^6/uL (3.85-5.65) 06/23/25 18:06 Hgb 12.40 g/dL (11.27-16.99) 06/23/25 18:06 Hct 38.5 % (36-47) 06/23/25 18:06 MCV 94.4 fl (85-98) 06/23/25 18:06 MCH 30.4 pg (27-33) 06/23/25 18:06 MCHC 32.2 g/dL (30-55) 06/23/25 18:06 RDW 11.9 % (12.1-15.1) L 06/23/25 18:06 Plt Count 261 10^3/cmm (157-399) 06/23/25 18:06 MPV 9.5 fL (7.4-10.4) 06/23/25 18:06 Neut % (Auto) 66.0 % 06/23/25 18:06 Lymph % (Auto) 21.2 % 06/23/25 18:06 [place] % (Auto) 9.2 % 06/23/25 18:06 Eos % (Auto) 2.9 % 06/23/25 18:06 Baso % (Auto) 0.4 % 06/23/25 18:06 Neut # (Auto) 4.59 10^3/uL (1.8-7.7) 06/23/25 18:06 Lymph # (Auto) 1.5 10^3/uL (0.8-4.8) 06/23/25 18:06 [place] # (Auto) 0.6 10^3/uL (0.2-0.9) 06/23/25 18:06 Eos # (Auto) 0.2 10^3/uL (0.0-0.8) 06/23/25 18:06 Baso # (Auto) 0.0 10^3/uL (0.0-0.1) 06/23/25 18:06 Nucleated RBC % (auto) 0 % 06/23/25 18:06 Nucleated RBCs # 0.0 /100WBC 06/23/25 18:06 ESR 4 mm/hr (0-15) 06/23/25 18:06 C-Reactive Protein 3.4 mg/L (0.0-4.9) 06/23/25 18:06 All radiology interpretation(s) finalized by discharge Discharge Plan Discharge Patient Disposition: Home Clinical Impression: Cellulitis Condition: Stable Prescriptions: New doxycycline hyclate 100 mg capsule 100 mg PO BID Qty: 10 0RF No Action (DME) blood-glucose meter Misc See Rx Instructions .Route Qty: 1 0RF Rx Instructions: Check BS 4 times a day. (DME) blood sugar diagnostic Strip See Rx Instructions .Route Qty: 100 3RF Rx Instructions: Check Bs 4 times a day. (DME) lancets 31 gauge misc See Rx Instructions .Route Qty: 100 3RF Rx Instructions: Check BS 4 times a day. (DME) OneTouch Ultra Test Strip See Rx Instructions .Route Qty: 360 3RF Rx Instructions: test blood sugar 4 times day (DME) wheel chair See Rx Instructions .Route .MEDSUPPLY Qty: 1 0RF Rx Instructions: As directed (DME) Hinged Knee Brace See Rx Instructions .Route .MEDSUPPLY Qty: 1 0RF Rx Instructions: As directed (DME) blood-glucose meter [Accu-Chek Guide Glucose Meter] Misc See Rx Instructions .Route Qty: 1 0RF Rx Instructions: check blood sugars 4x/day-Per insurance preference (DME) Accu-Chek Guide test strips Strip See Rx Instructions .Route Qty: 100 3RF Rx Instructions: check blood sugar 4x/day-per insurance preference insulin glargine [Lantus Solostar U-100 Insulin] 100 unit/mL (3 mL) insulin pen 10 unit SUBCUT QAM Qty: 15 3RF Repatha SureClick 140 mg/mL pen injector 140 mg SUBCUT .M3TZOIH DIRECTED (DME) Cockup Wrist Brace See Rx Instructions .Route .MEDSUPPLY Qty: 1 0RF Rx Instructions: As directed (DME) Right Economy Knee Brace See Rx Instructions .Route .MEDSUPPLY Qty: 1 0RF Rx Instructions: As directed (DME) cane See Rx Instructions .Route .MEDSUPPLY Qty: 1 0RF Rx Instructions: As directed metronidazole 500 mg tablet 500 mg PO TID Qty: 30 0RF amoxicillin-pot clavulanate [Augmentin] 500-125 mg tablet 1 tab PO TID Qty: 30 0RF hydrocodone-acetaminophen 10-325 mg tablet 1 tab PO TID PRN (Reason: pain) 30 Days Qty: 75 0RF (DME) pen needle, diabetic [BD Ultra-Fine Short Pen Needle] 31 gauge x 5/16 needle See Rx Instructions .Route Qty: 100 3RF Rx Instructions: As directed ranolazine 500 mg tablet extended release 12 hr 500 mg PO DAILY Qty: 90 3RF zolpidem 10 mg tablet 10 mg PO BEDTIME PRN (Reason: Sleep) Qty: 30 5RF Mounjaro 5 mg/0.5 mL pen injector See Rx Instructions .ROUTE .COMPLEX Qty: 2 0RF Dose Instruction: INJECT 5 MG SUBCUTANEOUS WEEKLY FOR 28 DAYS Rx Instructions: INJECT 5 MG SUBCUTANEOUS WEEKLY FOR 28 DAYS levothyroxine 112 mcg tablet See Rx Instructions .ROUTE .COMPLEX Qty: 90 1RF Dose Instruction: TAKE 1 TABLET BY MOUTH DAILY Rx Instructions: TAKE 1 TABLET BY MOUTH DAILY nitroglycerin [Nitrostat] 0.4 mg Tablet, Sublingual 0.4 mg SUBLINGUAL Q5M PRN (Reason: Chest Pain) Rx Instructions: do not exceed 3 doses per episode ondansetron HCl 4 mg tablet 4 mg PO Q6H PRN (Reason: Nausea And Vomiting) levothyroxine 112 mcg tablet 112 mcg PO QAM Discharge Orders: Discharge ED (Routine); Ordered 06/23/25 Ordered By: Oumar Hernandez Referrals: William Chan MD [Primary Care Provider, Family Practice] Discharge Diet: Usual diet Discharge Activity: Increase activity as tolerated Patient Instructions: Gout, Cellulitis (ED), Opioid Safety, Pain Management, Patient Portal & Olamide Instructions Activity Restrictions/Additional Instructions: Ibuprofen 800 mg every 8 hours for 3 days. Please follow-up with your primary care provider towards the middle or end of the week. Print Language: Singaporean Coding Level of Care Code ED Book Solicitor for Dev Flood
[2025-06-23] MEDS: ondansetron hcl ODT 4 mg Tab PO (17:50)
[2025-06-23 18:12] LABS: Hematocrit 38.5 % (36-47); Hemoglobin 12.40 g/dL (11.27-16.99); Mean Corpuscular HGB Conc 32.2 g/dL (30-55); Mean Corpuscular Hemoglobin 30.4 pg (27-33); Mean Corpuscular Volume 94.4 fl (85-98); Nucleated Red Blood Cells % 0 %; Platelet Count 261 10^3/cmm (157-399); Red Blood Count 4.08 10^6/uL (3.85-5.65); White Blood Count 6.95 10^3/uL (3.29-11.43)
[2025-06-23 18:54] VITALS: BP 181/84; PULSE 65; O2SAT 98
== END 2025-06-23 18:54 | disposition home or self-care (01) ==
PROVIDERS: Emergency Medicine; Emergency Provider Student in an Organized Health Care Education/Training Program; PCP Family Medicine
DX: L03.116 Cellulitis of left lower limb (principal); Z79.4 Long term (current) use of insulin; I10 Essential (primary) hypertension; E11.40 Type 2 diabetes mellitus with diabetic neuropathy, unspecified; I25.119 Atherosclerotic heart disease of native coronary artery with unspecified angina pectoris; E78.5 Hyperlipidemia, unspecified
CPT/HCPCS: 36415; 73630; 85025; 85651; 86140; 93971; 96372; 99284; J1885; Q0162

== ENCOUNTER → 2025-06-24 13:50 | Outpatient (BNVA) | payer MEDICARE, BC, SELFPAY | PROVIDERS: PCP Family Medicine; Visit Provider Family Medicine | DX: R60.9 Edema, unspecified (principal); I10 Essential (primary) hypertension; M79.7 Fibromyalgia | CPT/HCPCS: 80053; 83880; 84443; 84550 ==

== ENCOUNTER → 2025-06-26 08:56 | Outpatient (BNVA) | payer MEDICARE, BC, SELFPAY | PROVIDERS: PCP Family Medicine; Visit Provider Internal Medicine Rheumatology | DX: L40.50 Arthropathic psoriasis, unspecified (principal); L40.0 Psoriasis vulgaris; Z79.899 Other long term (current) drug therapy; Z71.85 Encounter for immunization safety counseling; M79.7 Fibromyalgia | CPT/HCPCS: 99214 ==

== ENCOUNTER 2025-07-03 10:01 | Outpatient (CLI) | payer MEDICARE, BC, SELFPAY ==
[2025-07-03 10:59] LABS: Hematocrit 40.8 % (36-47); Hemoglobin 13.30 g/dL (11.27-16.99); Mean Corpuscular HGB Conc 32.6 g/dL (30-55); Mean Corpuscular Hemoglobin 30.2 pg (27-33); Mean Corpuscular Volume 92.7 fl (85-98); Nucleated Red Blood Cells % 0 %; Platelet Count 288 10^3/cmm (157-399); Red Blood Count 4.40 10^6/uL (3.85-5.65); White Blood Count 6.21 10^3/uL (3.29-11.43)
[2025-07-03 11:26] LABS: Alanine Aminotransferase 12 U/L (0-33); Albumin Level 4.1 g/dL (3.5-5.2); Alkaline Phosphatase 93 U/L (35-105); Aspartate Amino Transferase 14 U/L (0-32); Globulin 2.9 g/dL (1.3-4.6); Total Protein 7.0 g/dL (6.6-8.7)
== END 2025-07-03 10:02 | disposition home or self-care (01) ==
LOC: LAB 10:03
PROVIDERS: Internal Medicine Rheumatology; PCP Family Medicine; Visit Provider Internal Medicine
DX: Z79.899 Other long term (current) drug therapy (principal)
CPT/HCPCS: 36415; 80076; 82565; 85025; 85651; 86140

== ENCOUNTER → 2025-07-04 10:53 | Outpatient (BNVA) | payer MEDICARE, BC, SELFPAY | PROVIDERS: PCP Family Medicine; Visit Provider Internal Medicine | DX: E11.9 Type 2 diabetes mellitus without complications (principal); E03.9 Hypothyroidism, unspecified; R79.89 Other specified abnormal findings of blood chemistry; E78.5 Hyperlipidemia, unspecified; E78.2 Mixed hyperlipidemia; R74.01 Elevation of levels of liver transaminase levels | CPT/HCPCS: 99214 ==

== ENCOUNTER 2025-07-10 10:19 | Outpatient (CLI) | payer MEDICARE, BC, SELFPAY ==
--- NOTE | 2025-07-10 10:30 | USR_ITS ---
PROCEDURE INFORMATION: Exam: US Bilateral Noninvasive Physiologic Study of the Lower Extremity Arteries, Limited Exam date and time: 07/10/2025 10:29 AM Age: 74 years old Clinical indication: Swelling (edema) of limb; Lower extremity, bilateral; Additional info: Lower extremity swelling TECHNIQUE: Imaging protocol: Bilateral Limited bilateral noninvasive physiologic studies of lower extremity arteries. Images were documented and archived. Exam is limited. Total images: 1 COMPARISON: [place] [id number] 06/23/2025 6:19 PM FINDINGS: The following pressure measurements were obtained (mmHg): Brachial: Right: 107 (index) left: 106 (index) Ankle posterior tibial: Right: 108 (CRISTOFER = 1.01) left: 110 (CRISTOFER = 1.03) Ankle dorsalis pedis: Right: 96 (CRISTOFER = 0.90) left: 97 (CRISTOFER = 0.91) Digit: Right: 107 (CRISTOFER = 1.0) left: 108 (CRISTOFER = 1.01) US/CV ankle brachial index [id number] IMPRESSION: 1. Normal ankle-brachial indices for the posterior tibial arteries bilaterally. 2. Mildly decreased ankle-brachial indices for the dorsalis pedis arteries bilaterally. Comment: Waveforms were not submitted.
== END 2025-07-10 10:20 | disposition home or self-care (01) ==
LOC: RAD 10:20
PROVIDERS: PCP Family Medicine; Visit Provider Nurse Practitioner Family
DX: R22.43 Localized swelling, mass and lump, lower limb, bilateral (principal); I25.10 Atherosclerotic heart disease of native coronary artery without angina pectoris
CPT/HCPCS: 93922

== ENCOUNTER 2025-08-02 13:34 | Outpatient (CLI) | payer MEDICARE, BC, SELFPAY ==
--- NOTE | 2025-08-02 15:00 | USCV_ITS ---
Yasmani Teixeira Age: 74 Gender: F : 1950 Exam Date: 08/02/2025 13:41 Ordering Phys: William Chan MD Technologist: WEI [place] [facility] [place]ication: Elevated bnp BP: 136 / 68 HR: 77 Rhythm: Sinus Technical Quality: Adequate MEASUREMENTS (Male / Female) Normal Values 2D ECHO LV Diastolic Diameter PLAX 4.5 cm 4.2 - 5.9 / 3.9 - 5.3 cm IVS Diastolic Thickness 0.9 cm 0.6 - 1.0 / 0.6 - 0.9 cm IVS Systolic Thickness 1.3 cm LVPW Diastolic Thickness 1.0 cm 0.6 - 1.0 / 0.6 - 0.9 cm LVPW Systolic Thickness 2.0 cm LVOT Diameter 1.6 cm LV Ejection Fraction 2D Teich 53.9 % LV Ejection Fraction MOD 4C 63.2 % LV Ejection Fraction MOD 2C 66.5 % LV Ejection Fraction 2C AL 68.2 % LA Diameter 3.2 cm RA Systolic Volume 4C AL 39.4 ml RA Systolic Volume 4C MOD 36.5 ml LA Sys Volume AL 36.6 cm cubed LA Sys Volume Index AL 17.6 cm cubed/m squared Aorta at Sinotubular Diameter 2.2 cm M-MODE LA Ao Ratio MM 1.7 AV Cusp Separation MM 1.2 cm DOPPLER AV Peak Velocity 157.0 cm/s LVOT Peak Velocity 103.0 cm/s AV Area Cont Eq vti 1.4 cm squared AV Area Cont Eq pk 1.3 cm squared MV Peak Velocity 74.0 cm/s MV Area PHT 7.1 cm squared Mitral E to A Ratio 0.8 TR Peak Velocity 107.0 cm/s TR Peak Gradient 4.6 mmHg TV Peak E Velocity 66.0 cm/s PV Peak Velocity 127.0 cm/s FINDINGS Left Ventricle Normal left ventricular size and systolic function, EF 54%. Normal left ventricular wall thickness. Grade I/IV diastolic dysfunction (abnormal relaxation filling pattern), normal to mildly elevated filling pressures. Right Ventricle Mildly increased right ventricular size. Normal right ventricular systolic function. RVSP could not be calculated due to incomplete tricuspid regurgitation velocity profile. Right Atrium Normal right atrial size. Left Atrium Normal left atrial size. Mitral Valve No mitral valve stenosis. No mitral valve regurgitation. Aortic Valve Aortic valve not well visualized. No aortic valve stenosis. No aortic valve regurgitation. Tricuspid Valve No tricuspid valve regurgitation. No tricuspid valve stenosis. Pulmonic Valve No pulmonary valve stenosis. No pulmonary valve regurgitation. Pericardium No pericardial effusion. Aorta Normal size aortic root and proximal ascending aorta. IVC Inferior vena cava not visualized. CONCLUSIONS 1. Normal left ventricular cavity size and systolic function, EF 54% 2. Mildly enlarged right ventricular cavity size. Normal right ventricular systolic function 3. Grade 1 left ventricular diastolic dysfunction, normal for patient's age 4. Normal valvular function Aidan Weaver MD, FACC (Electronically Signed) Final Date: 02 August 2025 17:59 S
== END 2025-08-02 13:35 | disposition home or self-care (01) ==
LOC: RAD 13:36
PROVIDERS: PCP Family Medicine; Visit Provider Family Medicine
DX: R79.89 Other specified abnormal findings of blood chemistry (principal); R60.9 Edema, unspecified; R93.1 Abnormal findings on diagnostic imaging of heart and coronary circulation; I51.7 Cardiomegaly
CPT/HCPCS: 93306

== ENCOUNTER → 2025-08-27 14:22 | Outpatient (BNVA) | payer MEDICARE, BC, SELFPAY | PROVIDERS: PCP Family Medicine; Visit Provider Internal Medicine Rheumatology | DX: L40.0 Psoriasis vulgaris (principal); L40.50 Arthropathic psoriasis, unspecified; Z79.899 Other long term (current) drug therapy; Z71.85 Encounter for immunization safety counseling; M79.7 Fibromyalgia; E11.65 Type 2 diabetes mellitus with hyperglycemia | CPT/HCPCS: 99214 ==

== ENCOUNTER 2025-11-17 16:46 | Inpatient (IN) | payer MEDICARE, BC, SELFPAY ==
--- OUTSIDE RECORDS SUMMARY | 2024-09-15 03:00 | XMS_ITS ---
Author Organization [facility] Address [address] [place] [address] Care Team Providers Care Corporate Responsibility Officer Name Role Phone Ashu Alejandra Primary Care Provider Unavailabl e Migration, Provider Unavailable Unavailable REASON FOR VISIT EMR-Ian Encounters Encounter Location Date Provider Diagnosis Migrated_Facility 0 0 09/15/2024 Provider Migration Plan Of Treatment No Information Progress Notes * Evon HYDEOB:[birth year] (75 yo F)Acc No.[id number]:09/15/2024 Patient: Yasmani MONGE :1950 A ge:73 Y S ex:Female Phone: Address:[address] [place] [address], [place], [address] Subjective: * Chief Complaints: * E MR-Ian * * Date:
--- OUTSIDE RECORDS SUMMARY | 2024-09-16 03:00 | XMS_ITS ---
Author Organization [facility] Address [address] [place] [address] Care Team Providers Care On Air Personality Name Role Phone Piercedenise Ashu Primary Care Provider Unavailabl e Migration, Provider Unavailable Unavailable Allergies Allergen (clinical drug ingredient) Drug/Non Drug Allergy documented on EMR Reaction Allergy Type Onset Date Status codeine Codeine Nausea\vomiting Drug Allergy A ctive [place]ASON FOR [place]IT [place] [place] Medication SIG (Take, Route, Frequency, Duration) Notes Start Date End Date Status Aspirin *Pick strength-f orm from [facility] for eRX* Active Social History Social History Additional Details Category Social Info Options Details Migrated Social History Migrated Social History Alcoholic beverages? - No, Applying for disability? - No, Currently on disability? - No, Drug or substance abuse? - No, Education - Grade School, exposure to toxins/poisonous substances at work - No, I am interested in quitting. - No, If yes, frequency of alcoholic beverages - 1 drink per day, Involved in any legal proceedings or lawsuits? - No, Marital Status - , Nonprescription drug use? - No, Participation in detoxification or rehabilitation - No, Smoked in the past? - No, Smoking - No, Smoking status (MU) - <BLANK>, Working currently? - No Encounters Encounter Location Date Provider Diagnosis Migrated_Facility 0 0 09/16/2024 Provider Migration Plan Of Treatment No Information Progress Notes * Reginaldo TEIXEIRAHennyOB:[birth year] (75 yo F)Acc No.[id number]:09/16/2024 Patient: Yasmani MONGE :1950 A ge:73 Y S ex:Female Phone: Address:[address] [place] [address], [phone] Subjective: * Chief Complaints: * E MR-Ian * Surgical History: Appendectomy cabg x3 Hysterectomy * Family History: M igrated Family History: : Cancer, D iabetes, H eart disease. * Social History: M igrated Social History: M igrated Social History: Alcoholic beverages? - No, A pplying for disability? - No, C urrently on disability? - No, D rug or substance abuse? - No, E ducation - Grade School, e xposure to toxins/poisonous substances at work - No, I am interested in quitting. - No, I f yes, frequency of alcoholic beverages - 1 drink per day, I nvolved in any legal proceedings or lawsuits? - No, M arital Status - , N onprescription drug use? - No, P articipation in detoxification or rehabilitation - No, S moked in the past? - No, S moking - No, S moking status (MU) - <BLANK>, W orking currently? - No. * Medications: T akingAspirin , Notes to Pharmacist: *Pick strength-form from [facility] for eRX*Taking Aspirin , Notes to Pharmacist: *Pick strength-form from [facility] for eRX* * Allergies: C odeine: Nausea\vomiting - Allergy * * Date:
[2025-11-17] VITALS (8 sets, daily range): BP systolic 160–205; BP diastolic 66–133; PULSE 74–96; RESP 16–20; TEMP 36.7–37; O2SAT 93–96; BMI 32.4
--- NOTE | 2025-11-17 16:49 | XRR_ITS ---
PROCEDURE INFORMATION: Exam: XR Chest Exam date and time: 11/17/2025 6:30 PM Age: 75 years old Clinical indication: Shortness of breath; Chest pressure; Prior surgery; Surgery date: 6+ months; Surgery type: Cabg, coronary stents; PT arrives pov C/O chest pain and SOB that started today. PT states she took 1 nitro at 1000 this morning. PT has HX of stents and bypass surgery and denies lung issues. ; Additional info: Cp TECHNIQUE: Imaging protocol: Radiologic exam of the chest. Views: 1 view. COMPARISON: CR XR chest 1V portable [id number] 02/25/2025 2:37 PM FINDINGS: Lungs: Unremarkable. No consolidation. Pleural spaces: Unremarkable. No pleural effusion. No pneumothorax. Heart/Mediastinum: No cardiomegaly. Mediastinal surgical clips. Bones/joints: Spondylosis. Prior median sternotomy. XR/XR chest 1V portable [id number] IMPRESSION: No acute findings.
--- OUTSIDE RECORDS SUMMARY | 2025-11-17 16:53 | XMS_ITS | Patient Health Record ---
Author Organization [facility] Address [address] [place] [address] Care Team Providers Care Cash Register Repairer Name Role Phone Ashu Alejandra Primary Care Provider Unavailabl e Reason For Referral No Information Medications Medication SIG (Take, Route, Frequency, Duration) Notes Start Date End Date Status Aspirin *Pick strength-f orm from [facility] for eRX* Active Social History Social History [...] (MU) - <BLANK>, Working currently? - No Plan Of Treatment No Information Insurance Providers Payer Name Payer Address Payer Phone Subscriber Number Group Number Insured Name Patient Relationship to Insured Coverage Start Date Coverage End Date [facility] [address] [place] [address] [id number] Lluvia Yasmani Self - patient is the insured 2 Medical (General) History Surgical History Surgery Date(Month/Year) Appendectomy cabg x3 Hysterectomy
--- NOTE | 2025-11-17 16:57 | ECG_ITS ---
[employer] Test Date: 2025-11-17 Pat Name: Yasmani Teixeira Department: Room: Gender: Female Lung Splitter: : 1950 Requested By: Kiersten Dallas Order Number: [id number] Reading MD: ALBIN KNOX Measurements Intervals [place] Rate: 89 P: 49 MI: 151 QRS: 8 QRSD: 88 T: 67 QT: 352 QTc: 429 Interpretive Statements SINUS RHYTHM POSSIBLE ANTERIOR MYOCARDIAL INFARCTION , OF INDETERMINATE AGE [30 ms Q WAVE IN V3/V4, OR R < 0.2 mV IN V4] Compared to ECG 02/25/2025 16:50:52 Myocardial infarct finding now present Electronically Signed On 11-17-2025 22:50:49 OPHTHALMOLOGY ASSISTANT by ALBIN KNOX [email or web address]
[2025-11-17 17:46] LABS: Hematocrit 37.3 % (36-47); Hemoglobin 11.90 g/dL (11.27-16.99); Mean Corpuscular HGB Conc 31.9 g/dL (30-55); Mean Corpuscular Hemoglobin 30.6 pg (27-33); Mean Corpuscular Volume 95.9 fl (85-98); Nucleated Red Blood Cells % 0 %; Platelet Count 251 10^3/cmm (157-399); Red Blood Count 3.89 10^6/uL (3.85-5.65); White Blood Count 6.70 10^3/uL (3.29-11.43)
--- NOTE | 2025-11-17 17:49 | ECG_ITS ---
[facility] Date[facility] 2025-11-17 Pat Name: Yasmani Teixeira Department: Room: Gender: Female School Commissioner: : 1950 Requested By: Kiersten Dallas Order Number: [id number] Reading MD: ALBIN KNOX Measurements Intervals [place] Rate: 78 P: 52 MA: 156 QRS: 21 QRSD: 87 T: 77 QT: 381 QTc: 435 Interpretive Statements SINUS RHYTHM POSSIBLE ANTERIOR MYOCARDIAL INFARCTION , PROBABLY OLD [30 ms Q WAVE IN V3/V4, OR R < 0.2 mV IN V4] Compared to ECG 11/17/2025 16:57:41 No significant changes Electronically Signed On 11-17-2025 23:17:11 TOW MATE by ALBIN KNOX [email or web address]
[2025-11-17 17:58] LABS: INR 0.83 (0.8-1.2); Prothrombin Time 12.00 SECONDS (12.1-14.9)
[2025-11-17 18:03] LABS: Troponin(5th) Baseline 14 ng/L (0-10)
[2025-11-17 18:33] LABS: Alanine Aminotransferase 16 U/L (0-33); Albumin Level 3.9 g/dL (3.5-5.2); Alkaline Phosphatase 115 U/L (35-105); Anion Gap 17.3 (5-19); Aspartate Amino Transferase 18 U/L (0-32); Blood Urea Nitrogen 16 mg/dL (8-23); Calcium 9.3 mg/dL (8.5-10.5); Carbon Dioxide 22 mmol/L (22-29); Chloride 104 mmol/L (98-107); Globulin 2.0 g/dL (1.3-4.6); Glucose 239 mg/dL (65-115); NT Pro B Type Natriuretic Pept 264 pg/mL (0-125); Osmolality Calculated 297 mOsm/kg (285-295); Potassium 4.3 mmol/L (3.5-5.1); Sodium 139 mmol/L (136-145); Total Protein 5.9 g/dL (6.6-8.7)
--- NOTE | 2025-11-17 18:48 | ED_ITS ---
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 Patient states that she has 7 out of 10 chest pressure, sharp pain in the left side of her chest, worsened with breathing. Patient feels the chest pain is worsened with exertion and radiates to the left shoulder/arm area, states that her left arm hurts. Patient states she feels generally weak and unwell. Patient reports subjective shortness of breath. She has not had a fever, denies headache, runny nose, sore throat, cough, hemoptysis or syncope. Patient has been feeling nauseated but no vomiting. Patient states that she has lower abdomen discomfort and decreased urine output but has not had dysuria, hematuria or flank pain. Patient reports left lower extremity swelling, states that her leg has been swelling off and on for 1 week. Patient states it is somewhat improved after sleeping at night but worsens throughout the day. Related Data Home Medications ?Medication ?Instructions ?Recorded ?Confirmed nitroglycerin 0.4 mg sublingual 0.4 mg sublingual Q5M PRN Chest 12/16/23 08/15/25 tablet (Nitrostat) Pain Previous Rx's ?Medication ?Instructions ?Recorded pen needle, diabetic 31 gauge x #100 ea 12/01/21 5/16 (BD Ultra-Fine Short Pen Needle) blood sugar diagnostic #100 ea 12/30/21 lancets 31 gauge #100 ea 12/30/21 blood sugar diagnostic (OneTouch #360 ea 12/31/21 Ultra Test strips) insulin glargine 100 unit/mL (3 10 unit (0.1 mL) SUBCU T QAM #15 mL 03/14/25 mL) subcutaneous pen (Lantus Solostar U-100 Insulin) ranolazine 500 mg tablet,extended 500 mg PO DAILY #90 tabs 07/23/25 release,12 hr zolpidem 10 mg tablet 10 mg PO BEDTIME PRN Sleep # 30 tabs 08/02/25 ondansetron HCl 4 mg tablet See Rx Instructions .Route 08/12/25 .COMPLEX #30 tabs adalimumab 40 mg/0.4 mL See Rx Instructions SUBCUT 1 subcutaneous pen kit (Humira(CF) .COMPLEX #2 ea Pen) levothyroxine 112 mcg tablet 112 mcg PO QAM #90 tabs 1 amoxicillin 500 mg-potassium 1 tab PO TID #30 tabs 06/14 clavulanate 125 mg tablet (Augmentin) metronidazole 500 mg tablet 500 mg PO TID #30 tabs 06/14 diclofenac sodium 75 mg 75 mg PO Q12H PRN moderate t o 10/21/25 tablet,delayed release severe pain as needed #60 ta bs tirzepatide 5 mg/0.5 mL 5 mg (0.5 mL) SUBCUT Q7D #2 mL 10/23/25 subcutaneous pen injector (Sophiero) hydrocodone 10 mg-acetaminophen 1 tab PO TID PRN pain 1 month #90 11/05/25 325 mg tablet tabs Allergies Allergy/AdvReac Type Severity Reaction Status Date / Time methotrexate Allergy Intermediate ADR-Gastrointestinal Verified 11/17/25 17:04 Upset ragweed pollen Allergy Unknown Verified 11/17/25 17:04 PFSH ED 2 PFSH: Medical History (Updated 11/17/25 @ 19:40 by Allegra Marx MD) Hypothyroid Immunization counseling High risk medication use Plaque psoriasis Psoriatic arthritis Fibromyalgia Essential hypertension Inferior mesenteric vein thrombosis Diverticulitis Septic thrombophlebitis Acute hyponatremia Diverticulitis Septic thrombophlebitis of superior mesenteric vein GERD (gastroesophageal reflux disease) Coronary artery disease due to type 2 diabetes mellitus Diabetes type 2, uncontrolled Migraine UTI (urinary tract infection) Elevated troponin Atherosclerotic heart disease [place] coronary artery w/angina pectoris Non-ST elevated myocardial infarction (non-STEMI) Benign essential HTN Dyslipidemia (high LDL; low HDL) Hyperlipidemia Not currently on treatment Ovarian cancer Treated with hysterectomy with salpingo-oophorectomy Uncontrolled type 2 diabetes with neuropathy Surgical History Status post aorto-coronary artery bypass graft H/O: hysterectomy Hx of cholecystectomy Hx of appendectomy History of tonsillectomy Family History Sister Cancer uterine/cervix CAD (coronary artery disease) Diabetes Mother Cancer cervix Father CAD (coronary artery disease) Brother CAD (coronary artery disease) Diabetes Grandmother Diabetes Denies family history of Clotting disorder Dementia Chronic kidney disease (CKD) Suicide Anesthesia complication Bleeding disorder Lung disease Stroke Social History Smoking and tobacco/nicotine status: never used tobacco/nicotine Second hand smoke exposure: No Alcohol intake: never Substance/Drug Use: never Additional social history: Smoked for few years in her 20s Lives independently: Yes Household members: none Female Reproductive History: Para: 2 Physical Exam 2 Narrative: EXAM NARRATIVE: Vital signs were reviewed. Patient is alert and oriented. Patient is breathing comfortably, no increased WOB or accessory muscle use. SpO2 is above 95% on RA. Patient has clear lungs b/l, no rhonchi, wheezing or crackles. No hypotension or tachycardia. Abdomen is soft, nondistended and nontender. Patient is moving all extremities, no deformity or gross injury. No lower extremity edema. Possbile LLE swelling. Course 2 Vital Signs: Vital signs: Vital Signs Temperature 98.3 F 11/17/25 16:53 Pulse Rate 93 11/17/25 16:53 Respiratory Rate 18 11/17/25 16:53 Blood Pressure 196/71 11/17/25 16:53 Pulse Oximetry 95 11/17/25 16:53 Oxygen Delivery Me thod Room Air 11/17/25 16:53 MDM - Chest Pain Medical Decision Making 75yo F w/cc of chest pain, exertional component w/subjective shortness of breath, weakness, nausea, radiation to LUE. She has a h/o cardiac bypass and stents. Differential diagnosis includes, but is not limited to, ACS, myocarditis, pericarditis, pneumonia, viral upper respiratory infection, PE, GERD, other. On initial exam, patient is hemodynamically stable nontoxic appearing. EKG was personally reviewed and interpreted and shows no STEMI. She was treated w/ASA, nitroglycerin, morphine, zofran. Patient has a heart score 7; she has a significant cardiac history, reports exertional component to her chest pain, radiation to the left upper extremity, improved at home with nitroglycerin somewhat. These are very concerning features and she would benefit from observation for ACS rule out. Additionally, her D-dimer was elevated, CT PE added to evaluation. Lab work shows normal white blood cell count, no anemia, no significant electrolyte abnormalities that are actionable in the emergency room, very mildly elevated baseline troponin of 14, mildly elevated BNP. UA is positive for infection, she was treated with Macrobid. Admitted for ACS rule out. Lab Data 11/17/25 17:29 11/17/25 17: Laboratory Results WBC 6.70 10^3/uL (3.29-11.43) 11/17/25 17: RBC 3.89 10^6/uL (3.85-5.65) 11/17/25 17: Hgb 11.90 g/dL (11.27-16.99) 11/17/25 17: Hct 37.3 % (36-47) 11/17/25 17: MCV 95.9 fl (85-98) 11/17/25 17: MCH 30.6 pg (27-33) 11/17/25 17: MCHC 31.9 g/dL (30-55) 11/17/25 17: RDW 12.9 % (12.1-15.1) 11/17/25 17: Plt Count 251 10^3/cmm (157-399) 11/17/25 17: MPV 9.7 fL (7.4-10.4) 11/17/25 17: Neut % (Auto) 66.8 % 11/17/25 17: Lymph % (Auto) 21.0 % 11/17/25 17: [place] % (Auto) 7.6 % 11/17/25 17: Eos % (Auto) 3.4 % 11/17/25 17: Baso % (Auto) 0.6 % 11/17/25 17: Neut # (Auto) 4.47 10^3/uL (1.8-7.7) 11/17/25 17: Lymph # (Auto) 1.4 10^3/uL (0.8-4.8) 11/17/25 17: [place] # (Auto) 0.5 10^3/uL (0.2-0.9) 11/17/25 17: Eos # (Auto) 0.2 10^3/uL (0.0-0.8) 11/17/25 17:29 Baso # (Auto) 0.0 10^3/uL (0.0-0.1) 11/17/25 17: Nucleated RBC % (auto) 0 % 11/17/25 17: Nucleated RBCs # 0.0 /100WBC 11/17/25 17: PT 12.00 SECONDS (12.1-14.9) L 11/17/25 17: INR 0.83 (0.8-1.2) 11/17/25 17:29 D-Dimer 0.89 ug/mLFEU (0-0.59) H 11/17/25 17:29 Sodium 139 mmol/L (136-145) 11/17/25 17: Potassium 4.3 mmol/L (3.5-5.1) 11/17/25 17: Chloride 104 mmol/L (98-107) 11/17/25 17: Carbon Dioxide 22 mmol/L (22-29) 11/17/25 17: Anion Gap 17.3 (5-19) 11/17/25 17:29 BUN 16 mg/dL (8-23) 11/17/25 17: Creatinine 0.9 mg/dL (0.5-0.9) 11/17/25 17: GFR Calculation Not Reportable 11/17/25 17: Glucose 239 mg/dL (65-115) H 11/17/25 17:29 Calculated Osmolality 297 mOsm/kg (285-295) H 11/17/25 17: Calcium 9.3 mg/dL (8.5-10.5) 11/17/25 17:29 Total Bilirubin 0.2 mg/dL (0.15-1.2) 11/17/25 17:29 AST 18 U/L (0-32) 11/17/25 17:29 ALT 16 U/L (0-33) 11/17/25 17:29 Alkaline Phosphatase 115 U/L (35-105) H 11/17/25 17:29 Troponin T Baseline 14 ng/L (0-10) H 11/17/25 17:29 NT-Pro-B Natriuret Pep 264 pg/mL (0-125) H 11/17/25 17:29 Total Protein 5.9 g/dL (6.6-8.7) L 11/17/25 17: Albumin 3.9 g/dL (3.5-5.2) 11/17/25 17:29 Globulin 2.0 g/dL (1.3-4.6) 11/17/25 17:29 Urine Color Dark yellow (Yellow) A 11/17/25 18:41 Urine Appearance Clear (CLEAR) 11/17/25 18:41 Urine pH 5.5 (5-7) 11/17/25 18:41 Ur Specific [place] 1.016 (1.005-1.030) 11/17/25 18:41 Urine Protein 1+ (Negative) A 11/17/25 18:41 Urine Glucose (UA) 3+ (Normal) H 11/17/25 18:41 Urine Ketones Negative (Negative) 11/17/25 18:41 Urine Blood Negative (Negative) 11/17/25 18:41 Urine Nitrate Positive (Negative) A 11/17/25 18:41 Urine Bilirubin Negative (Negative) 11/17/25 18:41 Urine Urobilinogen 1.0 mg/dL (Negative) 11/17/25 18:41 Ur Leukocyte Esterase Trace (Negative) A 11/17/25 18:41 Urine RBC 11-20 /hpf (0-2) H 11/17/25 18:41 Urine WBC 0-5 /hpf (0-5) 11/17/25 18:41 Ur Squamous Epith Cells 0-5 /hpf (0-5) 11/17/25 18:41 Urine Bacteria None seen /hpf (NONE) 11/17/25 18:41 Hyaline Casts 0-4 /lpf H 11/17/25 18:41 XR interpretation done by ED provider, pending radiology final review ED provider radiology interpretation(s): No large consolidation, pleural effusion, pneumothorax. Mild increase in left lower lobe opacities which is an improvement from previous chest x-ray. EKG Data EKG 1: Interpretation: Normal sinus rhythm with a heart rate of 78, normal axis, normal intervals, no ST segment elevation. Q wave in III present on previous EKG, as well as TWI in aVL present on previous EKG. Suspect incorrect lead placement as R wave progression does not make sense. Discharge Plan Discharge Patient Disposition: Admitted As Inpatient Clinical Impression: Angina pectoris, unstable, Left leg swelling, Urinary tract infection Condition: Stable Coding Level of Care Code ED Mechanic Assistant for Chg Fwd Heart Score HEART Score Components History: Highly Suspicious EKG: Non-specific Changes Age: 65 or more yrs Risk Factors: >/=3 Risk Factors Troponin: Baseline Trop <16 ng/L HEART Score RESULT HEART Score: 7
--- NOTE | 2025-11-17 19:02 | USR_ITS ---
PROCEDURE INFORMATION: Exam: US Duplex Left Lower Extremity Veins, Limited Exam date and time: 11/17/2025 7:24 PM Age: 75 years old Clinical indication: Edema, localized; Lower extremity, bilateral; Additional info: Swelling TECHNIQUE: Imaging protocol: Real-time duplex ultrasound of the left extremity with 2-D pacheco scale, color Doppler flow and spectral waveform analysis including responses to compression and other maneuvers (when performed) with image documentation. Limited exam focused on the left lower extremity veins. COMPARISON: US CV roverto dup insuff [facility] [id number] 04/17/2025 9:58 AM FINDINGS: Left deep veins: Unremarkable. The common femoral, femoral, proximal profunda femoral and popliteal veins are patent without thrombus. Normal Doppler waveforms. Normal compressibility and/or augmentation response. Interrogated posterior tibial and peroneal veins are patent. Superficial veins: Greater saphenous vein, to include at the saphenofemoral junction, is patent without thrombus. Soft tissues: Soft tissue swelling at the level of the calf. US/CV venous duplex [facility] [id number] IMPRESSION: No evidence of deep vein thrombosis.
[2025-11-17 19:23] LABS: Glucose Urine UA 3+ (Normal); Nitrate Urine Positive (Negative); Specific Gravity, Urine 1.016 (1.005-1.030)
[2025-11-17 19:28] LABS: Add Urine Microscopic? YES; Universal Test for UA Present (0)
--- NOTE | 2025-11-17 19:33 | CTR_ITS ---
PROCEDURE INFORMATION: Exam: CTA Chest With Contrast Exam date and time: 11/17/2025 8:14 PM Age: 75 years old Clinical indication: Pain and abnormal findings; Abnormal diagnostic tests; Elevated d-dimer; Shortness of breath; Chest pressure; Prior surgery; Surgery date: 6+ months; Surgery type: Cabg. Coronary stents; Chest pain with SOB and dimer of 0.89. ; Additional info: Chest pain, pleuritic, abnormal d dimer TECHNIQUE: Imaging protocol: Computed tomographic angiography of the chest with contrast. Exam focused on the arteries. 3D rendering (Not supervised by radiologist): MIP and/or 3D reconstructed images were created by the technologist. Radiation optimization: All CT scans at this facility use at least one of these dose optimization techniques: automated exposure control; mA and/or kV adjustment per patient size (includes targeted exams where dose is matched to clinical indication); or iterative reconstruction. Contrast material: OMNI 350; Contrast volume: 56 ml; Contrast route: INTRAVENOUS (IV); COMPARISON: 1. CR (CHEST, ) 11/17/2025 6:[address] abdomen pelvis w con* [id number] 12/20/2023 6:03 AM RADIATION DOSE METRICS: Total DLP (mGy-cm): 456.52 FINDINGS: Pulmonary arteries: Normal pulmonary arterial caliber without evidence of acute emboli. Aorta: Mild to moderate systemic atherosclerosis without aortic aneurysm. Lungs: Mild paraseptal emphysematous change. Mild dependent subpleural reticulation and ground-glass attenuation likely on the basis of atelectasis, possibly mild fibrotic change. No consolidation or mass. 4 mm solid noncalcified posterior right upper lobe nodule on axial image 153 of series 6. Pleural spaces: Unremarkable. No pneumothorax. No pleural effusion. Heart: Unremarkable. No cardiomegaly. No pericardial effusion. Coronary arteries: Heavy coronary artery calcification. Prior CABG. Lymph nodes: Mildly prominent mediastinal and bilateral hilar lymph nodes, index subcarinal node measures 1.8 cm in the short axis. Diaphragm: Small hiatal hernia. Gallbladder and biliary ducts: Prior cholecystectomy with similar mild biliary ductal dilatation likely on the basis of reservoir effect. Spleen: Splenic calcified granuloma. Bones/joints: No acute fracture. Mild spondylosis. Prior median sternotomy. Soft tissues: Unremarkable. CT/CT angio chest PE protcl [id number] IMPRESSION: 1. No evidence of acute pulmonary emboli. 2. Mild mediastinal and bilateral hilar lymphadenopathy. 3. 4 mm right upper lobe nodule. For patients at low risk (minimal or absent history of smoking and of other known risk factors), no routine follow-up is indicated. For patients at high risk (history of smoking or of other known risk factors), consider optional CT Chest at 12 months. (Reference: Mandeep) 4. Additional chronic and incidental findings as above. COMMENTS: The presence of pulmonary emphysema on CT is an independent risk factor for lung cancer. In the absence of a history or active diagnosis of lung cancer, it is recommended that this patient with emphysema be evaluated for enrollment in a low dose CT lung cancer screening program. REFERENCES: Mandeep Mac, et al. Guidelines for Management of Incidental Pulmonary Nodules Detected on CT Images: From the Fleischner Society 2017. Radiology. 2017;284(1):228-243.
[2025-11-17] MEDS: ondansetron hcl ODT 4 mg Tab PO (19:43)
--- NOTE | 2025-11-17 19:44 | P.HP_ITS ---
Providers/Chief Complaint 2 Primary Care Provider: William Chan MD Chief Complaint: cp, sob History of Present Illness Yasmani Teixeira is a 75 year old female with history significant for type 2 diabetes mellitus, hypertension, CAD with prior coronary grafting and PCI, who presents with complaints of chest pain. She states that she has been feeling unwell in regards to her chest pain since the day prior to presentation. She points to her general chest area when describing where the pain is, but also says it is under her breast. The pain is on and off, also endorsing some degree of weakness. Nothing makes the pain worse but she does mention nitroglycerin did ease the pain somewhat. The pain is described as a pressure like sensation without radiation. Pain levels peaked at an 8 out of 10 in intensity but currently is a 7 during my encounter. She does mention that the pain reminds her of prior episodes that led to her having coronary intervention. On review of systems, she endorses sweats and nausea but denies any shortness of breath. She also mentions having some left lower extremity swelling which is worsening recently. Medications/Allergies Home Medications ?Medication ?Instructions ?Recorded ?Confirmed ?Last Taken ?Type pen needle, diabetic 31 gauge x #100 ea 12/01/2108/15 Unknown Rx 04/05 (BD Ultra-Fine Short Pen Needle) blood sugar diagnostic #100 ea 12/30/21 08/15/25 Un known Rx lancets 31 gauge #100 ea 12/30/21 08/15/25 Un known Rx blood sugar diagnostic (OneTouch #360 ea 12/31/2107/23 Unknown Rx Ultra Test strips) nitroglycerin 0.4 mg sublingual 0.4 mg sublingual Q5M PRN Chest 12/16/23 08/15/25 09/24/24 History tablet (Nitrostat) Pain insulin glargine 100 unit/mL (3 10 unit (0.1 mL) SUBCU T QAM #15 mL 03/14/25 08/15/25 Unknown Rx mL) subcutaneous pen (Lantus Solostar U-100 Insulin) ranolazine 500 mg tablet,extended 500 mg PO DAILY #90 tabs 07/23/25 08/15/25 Unknown Rx release,12 hr zolpidem 10 mg tablet 10 mg PO BEDTIME PRN Sleep # 30 tabs 08/02/25 08/15/25 Unknown Rx ondansetron HCl 4 mg tablet See Rx Instructions .Route 08/12/25 08/15/25 Unknown Rx .COMPLEX #30 tabs adalimumab 40 mg/0.4 mL See Rx Instructions SUBCUT 1 08/27/25 Unknown Rx subcutaneous pen kit (Humira(CF) .COMPLEX #2 ea Pen) levothyroxine 112 mcg tablet 112 mcg PO QAM #90 tabs 1 Unknown Rx amoxicillin 500 mg-potassium 1 tab PO TID #30 tabs 06/14 Unknown Rx clavulanate 125 mg tablet (Augmentin) metronidazole 500 mg tablet 500 mg PO TID #30 tabs 06/14 Unknown Rx diclofenac sodium 75 mg 75 mg PO Q12H PRN moderate t o 10/21/25 Unknown Rx tablet,delayed release severe pain as needed #60 ta bs tirzepatide 5 mg/0.5 mL 5 mg (0.5 mL) SUBCUT Q7D #2 mL 10/23/25 Unknown Rx subcutaneous pen injector (Mounjaro) hydrocodone 10 mg-acetaminophen 1 tab PO TID PRN pain 1 month #90 11/05/25 Unknown Rx 325 mg tablet tabs Allergies Allergy/AdvReac Type Severity Reaction Status Date / Time methotrexate Allergy Intermediate ADR-Gastrointestinal Verified 11/17/25 17:04 Upset ragweed pollen Allergy Unknown Verified 11/17/25 17:04 PFSH Acute 2 PFSH: Medical History (Updated 11/17/25 @ 20:36 by Carlos Mcintyre MD) Hypothyroid Immunization counseling High risk medication use Plaque psoriasis Psoriatic arthritis Fibromyalgia Essential hypertension Inferior mesenteric vein thrombosis Diverticulitis Septic thrombophlebitis Acute hyponatremia Diverticulitis Septic thrombophlebitis of superior mesenteric vein GERD (gastroesophageal reflux disease) Coronary artery disease due to type 2 diabetes mellitus Diabetes type 2, uncontrolled Migraine UTI (urinary tract infection) Elevated troponin Atherosclerotic heart disease [place] coronary artery w/angina pectoris Non-ST elevated myocardial infarction (non-STEMI) Benign essential HTN Dyslipidemia (high LDL; low HDL) Hyperlipidemia Not currently on treatment Ovarian cancer Treated with hysterectomy with salpingo-oophorectomy Uncontrolled type 2 diabetes with neuropathy Surgical History Status post aorto-coronary artery bypass graft H/O: hysterectomy Hx of cholecystectomy Hx of appendectomy History of tonsillectomy Family History Sister Cancer uterine/cervix CAD (coronary artery disease) Diabetes Mother Cancer cervix Father CAD (coronary artery disease) Brother CAD (coronary artery disease) Diabetes Grandmother Diabetes Denies family history of Clotting disorder Dementia Chronic kidney disease (CKD) Suicide Anesthesia complication Bleeding disorder Lung disease Stroke Social History Smoking and tobacco/nicotine status: never used tobacco/nicotine Second hand smoke exposure: No Alcohol intake: never Substance/Drug Use: never Additional social history: Smoked for few years in her 20s Lives independently: Yes Household members: none Female Reproductive History: Para: 2 Vitals/I&O/Wt Last Vital Signs Temp 98.3 F 11/17/25 16:53 Pulse 93 11/17/25 16:53 Resp 18 11/17/25 16:53 BP 196/71 11/17/25 16:53 Pulse Ox 95 11/17/25 16:53 O2 Del Method Room Air 11/17/25 16:53 Weight last 48 hrs Weight 88.451 kg Physical Exam 2 Const: COMMON NORMALS: patient oriented x3 and alert GENERAL APPEARANCE: c ooperative ORIENTATION/CONSCIOUSNESS: Yes awake HENMT: COMMON NORMALS: oropharynx normal Neck/C-Spine: COMMON NORMALS: no JVD Resp: COMMON NORMALS: normal respiratory effort and clear to auscultation bilaterally AUSCULTATION: clear to auscultation bilaterally Cardio: COMMON NORMALS: no JVD, regular rhythm, S1 normal heart sound present, S2 normal heart sound present and No murmurs present (Cardio) RHYTHM: regular rhythm HEART SOUNDS: S1 normal heart sound present and S2 normal heart sound present OTHER: 1+ pitting edema to the left lower extre mity distally GI: COMMON NORMALS: Normal to inspection, nondistended, normoactive bowel sounds present Extremity: COMMON NORMALS: no joint enlargement Neuro: COMMON NORMALS: patient oriented x3 and moves all extremities S ENSORIUM/ORIENTATION: Yes alert Skin: COMMON NORMALS: no rashes or lesions noted GENERAL SKIN EXAM: no rashes or lesions noted Data 11/17/25 17:29 11/17/25 17:29 A&P Assessment and plan 1. Angina pectoris, unstable: - Concerning given the patient's history of CAD, CABG, PCI, and her mention of the current pain reminiscent of her prior complaints - Start patient on heparin infusion - Aspirin provided by the ER - Patient refuses stress testing. Will consult cardiology in the morning for further guidance 2. Dysuria: - Patient feels that she has UTI but UA is negative for bacteria, or white blood cells. There are nitrites however - Obtain urine culture for definitive testing - In the meantime, please ciprofloxacin for empiric coverage. She has had a prior urine culture that showed resistance to nitrofurantoin 3. Left leg swelling: - Per chart review, likely venous insufficiency with a prior venous Doppler that was negative for thrombi. Current Doppler was also negative for thrombi 4. Diabetes mellitus: - Resume Lantus 10 units nightly -SSI otherwise - Last A1c on record shows 11.12% in February. Update A1c PDMP PDMP Reviewed: Not Reviewed Attestations 2 Medical Necessity Statement*: Patient is admitted to require at least 2 midnights inpatient for evaluation of her chest pain Coding Level of Care Code Acute Code for [facility] Fwd Diagnoses Angina pectoris, unstable I20.0 Dysuria R30.0 Left leg swelling M79.89 Diabetes mellitus E11.9
[2025-11-17] MEDS: morphine 4 mg/mL SDV 1 mL IVP (20:06)
[2025-11-17] MEDS: iohexol 350 mg/mL 500 mL Btl (per mL) IV (20:14)
[2025-11-17] MEDS: hyDRALAzine 20 mg/mL INJ 1 mL 10 MG IVP (22:33)
[2025-11-17] MEDS: heparin 5,000 unit/mL INJ 1 mL IVP (22:37)
[2025-11-17] MEDS: heparin drip 25,000 UNIT/500 ML PREMIX 21.23 UNIT IV (22:39)
--- NOTE | 2025-11-17 22:49 | ECG_ITS ---
[facility] Test Date: 2025-11-18 Pat Name: Yasmani Teixeira Department: Room: 101 Gender: Female Sterilizer Operator: : [id number] Requested By: Kiersten Dallas Order Number: [id number] Reading MD: ALBIN KNOX Measurements Intervals [place] Rate: 87 P: 47 CA: 159 QRS: 6 QRSD: 87 T: 82 QT: 392 QTc: 473 Interpretive Statements SINUS RHYTHM NONSPECIFIC T-WAVE ABNORMALITY Compared to ECG 11/17/2025 18:37:19 T-wave abnormality now present Myocardial infarct finding no longer present Electronically Signed On 11-21-2025 18:53:23 CLOTHING DESIGNER by ALBIN KNOX [email or web address]
[2025-11-17 23:56] LABS: Troponin 5 6HR 12.06 ng/L (0-10)
[2025-11-17 23:59] LABS: Troponin 5 6HR Delta -1.94 ng/L (0-12)
[2025-11-18] VITALS (9 sets, daily range): BP systolic 128–182; BP diastolic 66–103; PULSE 78–93; RESP 13–27; TEMP 36.4–36.9; O2SAT 90–96
[2025-11-18] MEDS: morphine 4 mg/mL SDV 1 mL 2 MG IVP ×4 (00:24→20:30)
[2025-11-18 04:39] LABS: Estmated Average Glucose 143; Hemoglobin A1C 6.6 % (4.0-6.0)
[2025-11-18 04:51] LABS: Partial Thromboplastin Time 100.7 SECONDS (23.9-36.7)
[2025-11-18] MEDS: ranolazine (12HR) 500 mg Tablet PO (05:13)
[2025-11-18] MEDS: HYDROcodone-acetaminophen 10-325 mg Tablet 1 TAB PO ×2 (06:41→14:54)
[2025-11-18] MEDS: insulin glargine 100 units/1 mL 10 UNIT SUBCUT (06:41)
--- NOTE | 2025-11-18 08:06 | PC.NURSE ---
Patients dexcom is 167.
--- NOTE | 2025-11-18 09:13 | PC.CHAP ---
Pastoral Care Encounter/Spiritual Assessment Type of Contact [] Declined day worker visit [] Patient/Family/Request visit [] Outpatient visit [] Follow-up visit [] Physician referral [] Code/Alert [x] Routine visit [] Staff referral [] Actively dying [] Patient sleeping [] Family support [] [] Out of room [] Palliative care [] [] Receiving care in room [] Pre-surgical visit [] Trauma [] Long length of stay [] ICU visit [] Other: Relational/Emotional Strength [] Patient feels connected with others/family/visitors/staff [] Distress [] Loneliness/isolation [] Abandonment Spirituality of Patient [x] Person of Vilma [] Attends Jehovah'S Witness of their Vilma [x] Believes in Prayer [] Reads Bible or Muslim materials [] There are Spiritual issues to be addressed Diet Aide Interventions [x] Prayer [x] Active listening [] Non-anxious presence [] Spiritual/emotional support [] Crisis/trauma care [] Spiritual counseling [] Bereavement support [] Provided bereavement packet [x] Provided Bible/devotional materials [] Provided toy/stuffed animal, coloring book to patient or family member [] Provided Communion [] Anointing/[place] [] Salvation [x] Completed spiritual assessment [] Other: Impact on Illness or Injury [] Angry [] Fearful [] Anxious [] Often cries [] Exhaustion [] Unable to work [] Unable to attend mu-ism [] Unable to walk/stand [] Unable to read [] Unable to drive [] Unable to eat/drink [] Unable to sleep [] Unable to be with family [] Patient intubated [] Other: Summary Time spent with patient 5 min
--- NOTE | 2025-11-18 09:56 | PC.NURSE ---
Provider is updated that patient is nauseated and asked for an order for zofran. Provider ordered zofran 4 mg IVP.
--- NOTE | 2025-11-18 10:00 | PM.CONSULT ---
Providers/Reason For Consult Consulting Physician/Specialty*: Dr. Griffith Reason for Consult*: Chest pain Requesting Physician: Dr. Mcintyre Attending Physician: Yenny Novoa NP Primary Care Provider: William Chan MD History of Present Illness History of Present Illness Yasmani Teixeira is a 75 year old female history of CABG, venous insufficiency, hypertension, diabetes, last cath in September 2024 that showed 3 patent grafts who came into the ER today for chest pain. She states the last time this happened it was the same feeling as when she ended up with open heart surgery. She complains of chest pain that sharp on the left side but also radiates down her left arm at times. Relieving factor is nitro aggravating factors is none. Denies nausea or vomiting with this. At this time is not having any chest pain. EKG showed no acute ST elevation or T wave abnormalities. She is in sinus rhythm. She has a history of VALLES to LAD, saphenous vein graft from aorta to first diagonal and third OM. Troponin was flat at 14?11 0.2?12.06 delta negative. She does have a UTI currently. X-ray showed no acute abnormalities. Chest CT showed no acute PE. Currently she is on a heparin drip. Review of Systems Narrative: Reports recent chest pain that is sharp in nature to the left side of the chest that went down her left arm times a few days relieved with nitro Denies shortness of breath denies orthopnea Reports chronic lower extremity edema from venous insufficiency Denies nausea or vomiting Denies fever chills or bodyaches Medications/Allergies Home Medications ?Medication ?Instructions ?Recorded ?Confirmed ?Last Taken ?Type pen needle, diabetic 31 gauge x #100 ea 12/01/21 08/15/25 Unknown Rx 5/16 (BD Ultra-Fine Short Pen Needle) blood sugar diagnostic #100 ea 12/30/21 08/15/25 Unknown Rx lancets 31 gauge #100 ea 12/30/21 08/15/25 Unknown Rx blood sugar diagnostic (OneTouch #360 ea 12/31/21 08/15/25 Unknown Rx Ultra Test strips) nitroglycerin 0.4 mg sublingual 0.4 mg sublingual Q5M PRN Chest 12/16/23 08/15/25 09/24/24 History tablet (Nitrostat) Pain insulin glargine 100 unit/mL (3 10 unit (0.1 mL) SUBCUT QAM #15 mL 03/14/25 08/15/25 Unknown Rx mL) subcutaneous pen (Lantus Solostar U-100 Insulin) ranolazine 500 mg tablet,extended 500 mg PO DAILY #90 tabs 07/23/25 08/15/25 Unknown Rx release,12 hr zolpidem 10 mg tablet 10 mg PO BEDTIME PRN Sleep #30 tabs 08/02/25 08/15/25 Unknown Rx ondansetron HCl 4 mg tablet See Rx Instructions .Route 08/12/25 08/15/25 Unknown Rx .COMPLEX #30 tabs adalimumab 40 mg/0.4 mL See Rx Instructions SUBCUT 08/27/25 08/27/25 Unknown Rx subcutaneous pen kit (Humira(CF) .COMPLEX #2 ea Pen) levothyroxine 112 mcg tablet 112 mcg PO QAM #90 tabs 08/28/25 Unknown Rx amoxicillin 500 mg-potassium 1 tab PO TID #30 tabs 09/27/25 Unknown Rx clavulanate 125 mg tablet (Augmentin) metronidazole 500 mg tablet 500 mg PO TID #30 tabs 09/27/25 Unknown Rx diclofenac sodium 75 mg 75 mg PO Q12H PRN moderate to 10/21/25 Unknown Rx tablet,delayed release severe pain as needed #60 tabs tirzepatide 5 mg/0.5 mL 5 mg (0.5 mL) SUBCUT Q7D #2 mL 10/23/25 Unknown Rx subcutaneous pen injector (Mounjaro) hydrocodone 10 mg-acetaminophen 1 tab PO TID PRN pain 1 month #90 11/05/25 Unknown Rx 325 mg tablet tabs Allergies Allergy/AdvReac Type Severity Reaction Status Date / Time methotrexate Allergy Intermediate ADR-Gastrointestinal Verified 11/17/25 17:04 Upset ragweed pollen Allergy Unknown Verified 11/17/25 17:04 Current Medications Generic Name Dose Route Start Last Admin Trade Name Freq PRN Reason Stop Dose Admin Hydrocodone Bitart/Acetaminophen 1 tab 11/17/25 21:33 11/18/25 06:41 Hydrocodone-Acetaminophen 10-325 Mg Tablet PO 1 tab TID PRN Administration SEVERE PAIN Aspirin 81 mg 11/18/25 05:00 11/18/25 05:13 Aspirin 81 Mg Ec Tablet PO 81 mg DAILY RANDY Administration Heparin Sodium/Sodium Chloride 25,000 unit in 500 mls @ 21.228 mls/hr 11/17/25 21:33 11/18/25 05:15 Heparin Drip IV 9 unit/kg/hr CONT RANDY 15.92 mls/hr Protocol Titration 12 UNIT/KG/HR Ciprofloxacin/Dextrose 400 mg in 200 mls @ 200 mls/hr 11/18/25 09:00 11/18/25 09:52 Cipro IV 11/20/25 09:59 200 mls/hr Q12H RANDY Administration Protocol Insulin Glargine 10 unit 11/18/25 05:00 11/18/25 06:41 Insulin Glargine 100 Units/1 Ml SUBCUT 10 unit QAM RANDY Administration Insulin Human Lispro 0 unit 11/17/25 21:33 11/18/25 08:07 Insulin Lispro 100 Unit/1 Ml SUBCUT Not Given WM&BEDTIME RANDY Protocol Levothyroxine Sodium 112 mcg 11/18/25 05:00 11/18/25 05:13 Levothyroxine 112 Mcg Tablet PO 112 mcg QAM RANDY Administration Morphine Sulfate 2 mg 11/17/25 21:56 11/18/25 05:14 Morphine 4 Mg/Ml Sdv 1 Ml IVP 2 mg Q4H PRN Administration SEVERE PAIN Ranolazine 500 mg 11/18/25 05:00 11/18/25 05:13 Ranolazine (12hr) 500 Mg Tablet PO 500 mg DAILY RANDY Administration Zolpidem Tartrate 10 mg 11/17/25 21:51 11/17/25 22:33 Zolpidem 5 Mg Tablet PO 10 mg BEDTIME PRN Administration SLEEP PFSH Acute PFSH: Medical History (Updated 11/17/25 @ 20:36 by Carlos Mcintyre MD) Hypothyroid Immunization counseling High risk medication use Plaque psoriasis Psoriatic arthritis Fibromyalgia Essential hypertension Inferior mesenteric vein thrombosis Diverticulitis Septic thrombophlebitis Acute hyponatremia Diverticulitis Septic thrombophlebitis of superior mesenteric vein GERD (gastroesophageal reflux disease) Coronary artery disease due to type 2 diabetes mellitus Diabetes type 2, uncontrolled Migraine UTI (urinary tract infection) Elevated troponin Atherosclerotic heart disease [place]ka coronary artery w/angina pectoris Non-ST elevated myocardial infarction (non-STEMI) Benign essential HTN Dyslipidemia (high LDL; low HDL) Hyperlipidemia Not currently on treatment Ovarian cancer Treated with hysterectomy with salpingo-oophorectomy Uncontrolled type 2 diabetes with neuropathy Surgical History Status post aorto-coronary artery bypass graft H/O: hysterectomy Hx of cholecystectomy Hx of appendectomy History of tonsillectomy Family History Sister Cancer uterine/cervix CAD (coronary artery disease) Diabetes Mother Cancer cervix Father CAD (coronary artery disease) Brother CAD (coronary artery disease) Diabetes Grandmother Diabetes Denies family history of Clotting disorder Dementia Chronic kidney disease (CKD) Suicide Anesthesia complication Bleeding disorder Lung disease Stroke Social History Smoking and tobacco/nicotine status: never used tobacco/nicotine Second hand smoke exposure: No Alcohol intake: never Substance/Drug Use: never Additional social history: Smoked for few years in her 20s Lives independently: Yes Household members: none Female Reproductive History: Para: 2 Vitals/I&O/Wt Last Vital Signs Temp 97.5 F L 11/18/25 07:35 Pulse 92 11/18/25 07:35 Resp 15 11/18/25 07:35 BP 144/66 11/18/25 07:35 Pulse Ox 90 11/18/25 07:35 O2 Del Method Nasal Cannula 11/18/25 03:56 11/17/25 11/18/25 11/18/25 22:59 06:59 14:59 Intake Total 140.118 / 140.118 Balance 140.118 / 140.118 Weight last 48 hrs Weight 212 lb 4.882 oz Weight 195 lb Weight 195 lb Physical Exam Narrative: General: no acute distress Neck: No carotid bruit bilaterally Muskuloskeletal: Full ROM Respiratory: Normal respiratory effort, clear to auscultation bilaterally throughout all lung xavier, no use of accessory muscles Cardio: No JVD, regular rate, regular rhythm, S1 S2 normal, no murmurs, peripheral pulses 2+ radial palpated bilaterally GI: Normal to inspection, nondistended Extremities: Full ROM, normal, normal capillary refill, no cyanosis, trace edema bilateral lower extremities Neuro: Alert and oriented x4, no focal motor deficits Psych: Affect normal, denies suicidal ideation, mental status grossly normal Skin: telangiectasias bilateral lower extremities Data 11/17/25 17:29 11/17/25 17:29 A&P Assessment and plan 1. Unstable angina pectoris: 2. Essential hypertension: 3. CAD (coronary artery disease): 4. Venous insufficiency: Plan: Discussed with patient proceeding with possible stress test for angina. At this time she does not want to proceed with that. She would like to proceed with an angiogram. She denies any chest pain at this time. Agree with heparin drip. Continue home Ranexa 500 p.o. daily. Patient may eat today. Continue aspirin 81 mg daily. Patient has mixed picture of typical and atypical chest pain with history of severe CAD requiring coronary artery bypass will proceed with left heart cath possible PCI tomorrow morning to rule out progressive coronary artery disease. Continue to monitor for EKG changes or worsening signs or symptoms of chest discomfort. Thank you, Dr. Mcintyre, for allowing us to care for this very pleasant 75 year old female. PDMP PDMP Reviewed: Not Reviewed Coding Level of Care Code Acute Code for Chg Fwd Diagnoses Unstable angina pectoris I20.0 Essential hypertension I10 CAD (coronary artery disease) I25.10 Venous insufficiency I87.2
--- NOTE | 2025-11-18 10:38 | P.PN_ITS ---
Subjective 2 Subjective: Patient is a very pleasant 75-year-old female seen and examined at bedside on hospital rounds today. Patient sitting up in bed denying chest pain or shortness of breath currently. Patient does have mild nausea. Troponin was negative delta. Greatly appreciate cardiology consultation and management, discussed case with PATRICIA White. 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 Patient will be n.p.o. at midnight. Patient states no other concerns or complaints, is agreeable to proceeding with current interventions. Vital signs reviewed: Stable blood pressure 144/66, pulse 92, respirations 20, temp 97.5 ?F, O2 sat 92% with supplemental oxygen by nasal cannula. Labs reviewed normal WBC 6.70, hemoglobin 11.90, hemoglobin A1c 6.6, troponin 14, 11.2 to, 12.06. Doppler left lower extremity with no evidence of DVT. Vitals/I&O/Wt Last Vital Signs Temp 97.5 F L 11/18/25 07:35 Pulse 92 11/18/25 07:35 Resp 15 11/18/25 07:35 BP 144/66 11/18/25 07:35 Pulse Ox 90 11/18/25 07:35 O2 Del Method Nasal Cannula 11/18/25 03:56 11/17/25 11/18/25 11/18/25 22:59 06:59 14:59 Intake Total 140.118 / 140.118 Balance 140.118 / 140.118 Weight last 48 hrs Weight 96.3 kg Weight 88.451 kg Weight 88.451 kg Physical Exam 2 Const: COMMON NORMALS: patient oriented x3 and alert GENERAL APPEARANCE: c ooperative ORIENTATION/CONSCIOUSNESS: Yes awake HENMT: COMMON NORMALS: oropharynx normal Neck/C-Spine: COMMON NORMALS: no JVD Resp: COMMON NORMALS: normal respiratory effort and clear to auscultation bilaterally AUSCULTATION: clear to auscultation bilaterally Cardio: COMMON NORMALS: no JVD, regular rhythm, S1 normal heart sound present, S2 normal heart sound present and No murmurs present (Cardio) RHYTHM: regular rhythm HEART SOUNDS: S1 normal heart sound present and S2 normal heart sound present OTHER: 1+ pitting edema to the left lower extre mity distally GI: COMMON NORMALS: Normal to inspection, nondistended, normoactive bowel sounds present Extremity: COMMON NORMALS: no joint enlargement Neuro: COMMON NORMALS: patient oriented x3 and moves all extremities S ENSORIUM/ORIENTATION: Yes alert Skin: COMMON NORMALS: no rashes or lesions noted GENERAL SKIN EXAM: no rashes or lesions noted Data 11/17/25 17:29 11/17/25 17:29 A&P Assessment and plan 1. Angina pectoris, unstable: - Concerning given the patient's history of CAD, CABG, PCI, and her mention of the current pain reminiscent of her prior complaints - Continue Heparin gtt - Aspirin provided by the ER - Patient refuses stress testing. - Greatly appreciate cardiology consultation management with Dr. Griffith - N.p.o. midnight, stress test in the a.m. 2. Dysuria: - Patient feels that she has UTI but UA is negative for bacteria, or white blood cells. There are nitrites however - Pending urine culture - Empiric coverage with ciprofloxacin she has had a prior urine culture that showed resistance to nitrofurantoin 3. Left leg swelling: - Per chart review, likely venous insufficiency with a prior venous Doppler that was negative for thrombi. Current Doppler was also negative for thrombi 4. Diabetes mellitus: - Resume Lantus 10 units nightly - SSI, POC - Last A1c on record shows 11.12% in February. Update A1c 6.6 5. Hypothyroid: - Pending TSH - Continue levothyroxine 112 mcg p.o. daily 6. Hyperlipemia, mixed: - Pending lipid panel 7. Essential hypertension: - Blood pressure currently 144/66 - As needed hydralazine 8. Peripheral neuropathy: - Continue supportive measures PDMP PDMP Reviewed: Not Reviewed Attestations 2 Medical Necessity Statement*: Patient is admitted to require at least 2 midnights inpatient for evaluation of her chest pain, pending heart cath tomorrow. Diagnoses Angina pectoris, unstable I20.0 Dysuria R30.0 Left leg swelling M79.89 Diabetes mellitus E11.9 Hypothyroid E03.9 Hyperlipemia, mixed E78.2 Essential hypertension I10 Peripheral neuropathy G62.9
[2025-11-18] MEDS: ondansetron 2 mg/ML SDV 2 mL 4 MG IVP (10:39)
--- NOTE | 2025-11-18 11:22 | ECG_ITS ---
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
[2025-11-18 11:36] LABS: Partial Thromboplastin Time 51.3 SECONDS (23.9-36.7)
--- NOTE | 2025-11-18 11:44 | PC.NURSE ---
Updated provider that patient is having chest pain. EKG was done. Nitro given. Patient now resting with eyes closed.
--- NOTE | 2025-11-18 11:45 | PC.NURSE ---
Patient's dexcom is 323.
[2025-11-18 11:48] LABS: Cholesterol 187 mg/dL (0-200); HDL Cholesterol 57 mg/dL (60-100); Thyroid Stimulating Hormone 0.95 uIU/mL (0.27-4.20); Triglycerides 122 mg/dL (0-150)
--- NOTE | 2025-11-18 16:40 | PC.NURSE ---
Patient's dexcom read 161.
[2025-11-18 18:00] LABS: Partial Thromboplastin Time 44.7 SECONDS (23.9-36.7)
--- NOTE | 2025-11-18 20:54 | PC.NURSE ---
patient requested her zolpidem for sleep, however medication was on hold. Dr Walker notified and ordered to give 5mg QHS Prn
[2025-11-19] VITALS (62 sets, daily range): BP systolic 115–187; BP diastolic 62–96; PULSE 67–103; RESP 9–22; TEMP 36.4–36.7; O2SAT 95–98; BMI 35.3
[2025-11-19] MEDS: heparin drip 25,000 UNIT/500 ML PREMIX 23.04 UNIT IV (00:21)
[2025-11-19 01:52] LABS: Partial Thromboplastin Time 90.7 SECONDS (23.9-36.7)
[2025-11-19] MEDS: ranolazine (12HR) 500 mg Tablet PO (04:11)
[2025-11-19] MEDS: HYDROcodone-acetaminophen 10-325 mg Tablet 1 TAB PO ×2 (04:52→14:21)
[2025-11-19] MEDS: ondansetron 2 mg/ML SDV 2 mL 4 MG IVP ×2 (04:52→14:26)
--- NOTE | 2025-11-19 04:52 | PC.NURSE ---
patient requesting medication for pain and nausea. Hydrocodone and zofran given as ordered.
[2025-11-19 05:02] LABS: Hematocrit 37.8 % (36-47); Hemoglobin 11.80 g/dL (11.27-16.99); Mean Corpuscular HGB Conc 31.2 g/dL (30-55); Mean Corpuscular Hemoglobin 30.1 pg (27-33); Mean Corpuscular Volume 96.4 fl (85-98); Nucleated Red Blood Cells % 0 %; Platelet Count 249 10^3/cmm (157-399); Red Blood Count 3.92 10^6/uL (3.85-5.65); White Blood Count 7.11 10^3/uL (3.29-11.43)
[2025-11-19 05:28] LABS: Alanine Aminotransferase 15 U/L (0-33); Albumin Level 3.6 g/dL (3.5-5.2); Alkaline Phosphatase 93 U/L (35-105); Anion Gap 15.1 (5-19); Aspartate Amino Transferase 19 U/L (0-32); Blood Urea Nitrogen 7 mg/dL (8-23); Calcium 9.5 mg/dL (8.5-10.5); Carbon Dioxide 26 mmol/L (22-29); Chloride 105 mmol/L (98-107); Globulin 2.2 g/dL (1.3-4.6); Glucose 174 mg/dL (65-115); Magnesium 1.9 mg/dL (1.7-2.3); Osmolality Calculated 296 mOsm/kg (285-295); Potassium 4.1 mmol/L (3.5-5.1); Sodium 142 mmol/L (136-145); Total Protein 5.8 g/dL (6.6-8.7)
[2025-11-19 07:18] LABS: Partial Thromboplastin Time 79.8 SECONDS (23.9-36.7)
--- NOTE | 2025-11-19 07:22 | PC.NURSE ---
Patient left unit for dental laboratory assistant at 0720. Heparin drip is stopped for dental laboratory assistant.
--- NOTE | 2025-11-19 07:39 | W.PM.OPSUD ---
Surgery/Procedure H&P Update DATE OF PROCEDURE: November 19, 2025 DATE H&P PERFORMED: 11/18/25 H&P UPDATE INFORMATION: I have reviewed H&P completed within last 30 days, I have examined patient prior to procedure and No changes to prior documentation PREOP DIAGNOSIS: Worsening angina PRIMARY INDICATION FOR PROCEDURE: Worsening angina PLANNED PROCEDURE: Left heart cath with possible percutaneous coronary intervention PATIENT REASSESSED PRIOR TO SEDATION, WITH NO CHANGE NOTED: Yes PHYSICAL EXAM: alert, oriented x 3, clear to auscultation bilaterally and regular rate & rhythm AIRWAY EVAL/ANESTHESIA PLAN: normal airway, ASA III, Local Anesthesia, Risks, benefits & alternatives of sedation and/or procedure discussed and Patient agrees to continue as planned ADDITIONAL INFORMATION: Moderate sedation
--- NOTE | 2025-11-19 08:22 | PC.NURSE ---
Patient returned from boot and shoe laborer with a right femoral angioseal. NS to run at 100ml/hr x [address] Griffith.
--- NOTE | 2025-11-19 08:37 | P.PCN_ITS ---
Procedure Note: Date of procedure: 11/19/25 Pre-procedure diagnosis: Worsening angina Post-procedure diagnosis: other (Severe multivessel [place] coronary artery disease. Patent bypass grafts) Procedure: LAD and Left circumflex artery have chronic total occlusion. RCA has patent prior stents. VALLES to LAD is patent but after touchdown [place] coronary artery has severe diffuse disease with no revascularization target. SVG to Diagonal artery is patent. SVG to OM is patent with patent prior stent Uptitrate antianginal regimen. Aggressive medical therapy Performing Provider: Edmar Griffith Estimated blood loss (mL): 5 Complications: None Condition: stable Disposition: floor Coding Level of Care Code Acute Code for Chg Fwd
--- NOTE | 2025-11-19 09:12 | PM.DCS ---
Discharge Providers Date of Admission: 11/17/25 19:41 Date of Discharge: November 19, 2025 Attending Provider at Admission: Carlos Mcintyre MD Attending Provider at Discharge: Yenny Novoa NP Primary Care Provider: William Chan MD Diagnoses at Discharge Discharge Diagnosis 1. Essential hypertension: 2. CAD (coronary artery disease): 3. Venous insufficiency: Reason for Visit Reason for Visit: cp, sob Brief History: Admission: Yasmani Teixeira is a 75 year old female with history significant for type 2 diabetes mellitus, hypertension, CAD with prior coronary grafting and PCI, who presents with complaints of chest pain. She states that she has been feeling unwell in regards to her chest pain since the day prior to presentation. She points to her general chest area when describing where the pain is, but also says it is under her breast. The pain is on and off, also endorsing some degree of weakness. Nothing makes the pain worse but she does mention nitroglycerin did ease the pain somewhat. The pain is described as a pressure like sensation without radiation. Pain levels peaked at an 8 out of 10 in intensity but currently is a 7 during my encounter. She does mention that the pain reminds her of prior episodes that led to her having coronary intervention. On review of systems, she endorses sweats and nausea but denies any shortness of breath. She also mentions having some left lower extremity swelling which is worsening recently. Hospital Course Hospital Course 1. Angina pectoris, unstable: - Concerning given the patient's history of CAD, CABG, PCI, and her mention of the current pain reminiscent of her prior complaints - Continue Heparin gtt - Aspirin provided by the ER - Patient refuses stress testing. - Greatly appreciate cardiology consultation management with Dr. Griffith - s/p heart cath earlier today 2. Dysuria: - Patient feels that she has UTI but UA is negative for bacteria, or white blood cells. There are nitrites however - Pending urine culture - Empiric coverage with ciprofloxacin she has had a prior urine culture that showed resistance to nitrofurantoin, transitions to oral cipro. 3. Left leg swelling: - Per chart review, likely venous insufficiency with a prior venous Doppler that was negative for thrombi. Current Doppler was also negative for thrombi 4. Diabetes mellitus: - Resume Lantus 10 units nightly - SSI, POC - Last A1c on record shows 11.12% in February. Update A1c 6.6 5. Hypothyroid: - Pending TSH - Continue levothyroxine 112 mcg p.o. daily 6. Hyperlipemia, mixed: - Pending lipid panel 7. Essential hypertension: - Blood pressure currently 144/66 - As needed hydralazine 8. Peripheral neuropathy: - Continue supportive measures Discharge: Patient status post heart catheterization earlier today with Dr. Griffith who states patient may discharge home with continued aggressive medical therapy and follow-up outpatient with cardiology. I asked that patient have uptitrate Ranexa to 500 mg p.o. twice daily, this is prescribed at discharge. Patient discharge is in stable condition in care of family, advised to follow-up with primary care provider in 1 to 2 days and cardiology at next available appointment. Patient continues empiric antibiotic coverage with ciprofloxacin transitions to oral at discharge. Physical Exam Const: COMMON NORMALS: patient oriented x3 and alert GENERAL APPEARANCE: cooperative ORIENTATION/CONSCIOUSNESS: Yes awake HENMT: COMMON NORMALS: oropharynx normal Neck/C-Spine: COMMON NORMALS: no JVD Resp: COMMON NORMALS: normal respiratory effort and clear to auscultation bilaterally AUSCULTATION: clear to auscultation bilaterally Cardio: COMMON NORMALS: no JVD, regular rhythm, S1 normal heart sound present, S2 normal heart sound present and No murmurs present (Cardio) RHYTHM: regular rhythm HEART SOUNDS: S1 normal heart sound present and S2 normal heart sound present OTHER: 1+ pitting edema to the left lower extremity distally GI: COMMON NORMALS: Normal to inspection, nondistended, normoactive bowel sounds present Extremity: COMMON NORMALS: no joint enlargement Neuro: COMMON NORMALS: patient oriented x3 and moves all extremities SENSORIUM/ORIENTATION: Yes alert Skin: COMMON NORMALS: no rashes or lesions noted GENERAL SKIN EXAM: no rashes or lesions noted Discharge Data Studies Completed and Pending Completed Studies During Hospitalization Category Date Time Status CT PE [CT angio chest PE protcl [id number]] Stat Cat Scan 11/17/25 19:33 Completed XR chest 1V portable [id number] Stat Exams 11/17/25 16:49 Completed US venous duplex lower extremity LT [CV venous duplex Ultrasound 11/17/25 19:02 [place] [id number]] Stat Pending at discharge Category Date Time Status FILM REPRODUCER request for service Routine Exams 11/19/25 06:06 Ordered Complete Blood Count w/Auto AM LABS Lab 11/21/25 04:00 Ordered Complete Blood Count w/Auto AM LABS Lab 11/20/25 04:00 Ordered Comprehensive Metabolic Panel AM LABS Lab 11/21/25 04:00 Ordered Comprehensive Metabolic Panel AM LABS Lab 11/20/25 04:00 Ordered Platelet Count Q2D Lab 11/21/25 04:00 Ordered Urine Culture Routine Lab 11/17/25 18:41 Received Radiology Impressions Chest X-Ray 11/17/25 16:49 IMPRESSION: No acute findings. Venous Duplex 11/17/25 19:02 IMPRESSION: No evidence of deep vein thrombosis. Chest CTA 11/17/25 19:33 IMPRESSION: 1. No evidence of acute pulmonary emboli. 2. Mild mediastinal and bilateral hilar lymphadenopathy. 3. 4 mm right upper lobe nodule. For patients at low risk (minimal or absent history of smoking and of other known risk factors), no routine follow-up is indicated. For patients at high risk (history of smoking or of other known risk factors), consider optional CT Chest at 12 months. (Reference: Mandeep) 4. Additional chronic and incidental findings as above. COMMENTS: The presence of pulmonary emphysema on CT is an independent risk factor for lung cancer. In the absence of a history or active diagnosis of lung cancer, it is recommended that this patient with emphysema be evaluated for enrollment in a low dose CT lung cancer screening program. REFERENCES: Mandeep Mac, et al. Guidelines for Management of Incidental Pulmonary Nodules Detected on CT Images: From the Fleischner Society 2017. Radiology. 2017;284(1):228-243. Laboratory Results WBC 7.11 10^3/uL (3.29-11.43) 11/19/25 04:09 RBC 3.92 10^6/uL (3.85-5.65) 11/19/25 04:09 Hgb 11.80 g/dL (11.27-16.99) 11/19/25 04:09 Hct 37.8 % (36-47) 11/19/25 04:09 MCV 96.4 fl (85-98) 11/19/25 04:09 MCH 30.1 pg (27-33) 11/19/25 04:09 MCHC 31.2 g/dL (30-55) 11/19/25 04:09 RDW 13.2 % (12.1-15.1) 11/19/25 04:09 Plt Count 249 10^3/cmm (157-399) 11/19/25 04:09 MPV 10.0 fL (7.4-10.4) 11/19/25 04:09 Neut % (Auto) 50.0 % 11/19/25 04:09 Lymph % (Auto) 34.7 % 11/19/25 04:09 Baxter % (Auto) 9.8 % 11/19/25 04:09 Eos % (Auto) 4.4 % 11/19/25 04:09 Baso % (Auto) 0.8 % 11/19/25 04:09 Neut # (Auto) 3.55 10^3/uL (1.8-7.7) 11/19/25 04:09 Lymph # (Auto) 2.5 10^3/uL (0.8-4.8) 11/19/25 04:09 Baxter # (Auto) 0.7 10^3/uL (0.2-0.9) 11/19/25 04:09 Eos # (Auto) 0.3 10^3/uL (0.0-0.8) 11/19/25 04:09 Baso # (Auto) 0.1 10^3/uL (0.0-0.1) 11/19/25 04:09 Nucleated RBC % (auto) 0 % 11/19/25 04:09 Nucleated RBCs # 0.0 /100WBC 11/19/25 04:09 PT 12.00 SECONDS (12.1-14.9) L 11/17/25 17:29 INR 0.83 (0.8-1.2) 11/17/25 17:29 APTT 79.8 SECONDS (23.9-36.7) H 11/19/25 06:49 D-Dimer 0.89 ug/mLFEU (0-0.59) H 11/17/25 17:29 Sodium 142 mmol/L (136-145) 11/19/25 04:09 Potassium 4.1 mmol/L (3.5-5.1) 11/19/25 04:09 Chloride 105 mmol/L (98-107) 11/19/25 04:09 Carbon Dioxide 26 mmol/L (22-29) 11/19/25 04:09 Anion Gap 15.1 (5-19) 11/19/25 04:09 BUN 7 mg/dL (8-23) L 11/19/25 04:09 Creatinine 0.8 mg/dL (0.5-0.9) 11/19/25 04:09 GFR Calculation Not Reportable 11/19/25 04:09 Glucose 174 mg/dL (65-115) H 11/19/25 04:09 POC Glucose 153 mg/dL (70-110) H 11/17/25 21:59 Estimat Average Glucose 143 11/18/25 04:12 Hemoglobin A1c 6.6 % (4.0-6.0) H 11/18/25 04:12 Calculated Osmolality 296 mOsm/kg (285-295) H 11/19/25 04:09 Calcium 9.5 mg/dL (8.5-10.5) 11/19/25 04:09 Magnesium 1.9 mg/dL (1.7-2.3) 11/19/25 04:09 Total Bilirubin 0.4 mg/dL (0.15-1.2) 11/19/25 04:09 AST 19 U/L (0-32) 11/19/25 04:09 ALT 15 U/L (0-33) 11/19/25 04:09 Alkaline Phosphatase 93 U/L (35-105) 11/19/25 04:09 Troponin T Baseline 14 ng/L (0-10) H 11/17/25 17:29 Troponin T 60 Minute 11.22 ng/L (0-10) H 11/17/25 18:44 Delta Troponin T -2.78 ABS# (0-10) L 11/17/25 18:44 Troponin T Hi Sens 6Hr 12.06 ng/L (0-10) H 11/17/25 23:29 Troponin T Hi Sens 6Hr Delta -1.94 ng/L (0-12) L 11/17/25 23:29 NT-Pro-B Natriuret Pep 264 pg/mL (0-125) H 11/17/25 17:29 Total Protein 5.8 g/dL (6.6-8.7) L 11/19/25 04:09 Albumin 3.6 g/dL (3.5-5.2) 11/19/25 04:09 Globulin 2.2 g/dL (1.3-4.6) 11/19/25 04:09 Triglycerides 122 mg/dL (0-150) 11/18/25 11:09 Cholesterol 187 mg/dL (0-200) 11/18/25 11:09 LDL Cholesterol, Calc 106 mg/dL (50-129) 11/18/25 11:09 HDL Cholesterol 57 mg/dL (60-100) L 11/18/25 11:09 LDL/HDL Ratio 1.86 RATIO (0.00-3.22) 11/18/25 11:09 Cholesterol/HDL Ratio 3.28 mg/dL (0.0-4.40) 11/18/25 11:09 TSH 0.95 uIU/mL (0.27-4.20) 11/18/25 11:09 Urine Color Dark yellow (Yellow) A 11/17/25 18:41 Urine Appearance Clear (CLEAR) 11/17/25 18:41 Urine pH 5.5 (5-7) 11/17/25 18:41 Ur Specific [place] 1.016 (1.005-1.030) 11/17/25 18:41 Urine Protein 1+ (Negative) A 11/17/25 18:41 Urine Glucose (UA) 3+ (Normal) H 11/17/25 18:41 Urine Ketones Negative (Negative) 11/17/25 18:41 Urine Blood Negative (Negative) 11/17/25 18:41 Urine Nitrate Positive (Negative) A 11/17/25 18:41 Urine Bilirubin Negative (Negative) 11/17/25 18:41 Urine Urobilinogen 1.0 mg/dL (Negative) 11/17/25 18:41 Ur Leukocyte Esterase Trace (Negative) A 11/17/25 18:41 Urine RBC 0-4 /hpf (0-2) H 11/17/25 18:41 Urine WBC 0-5 /hpf (0-5) 11/17/25 18:41 Ur Squamous Epith Cells 0-5 /hpf (0-5) 11/17/25 18:41 Urine Bacteria None seen /hpf (NONE) 11/17/25 18:41 Hyaline Casts 0-4 /lpf H 11/17/25 18:41 Vitals Last Vital Signs Temp 98.0 F 11/19/25 08:00 Pulse 81 11/19/25 08:00 Resp 15 11/19/25 08:00 BP 140/80 11/19/25 09:00 Pulse Ox 98 11/19/25 08:00 O2 Del Method Room Air 11/19/25 00:00 Discharge Plan Discharge Patient Disposition: Home Condition: Stable Prescriptions: New aspirin 81 mg Tablet,Delayed Release (Dr/Ec) 81 mg PO DAILY 30 Days Qty: 30 0RF ranolazine 500 mg Tablet Extended Release 12 Hr 500 mg PO BIDWMEAL 90 Days Qty: 180 0RF ciprofloxacin HCl 500 mg tablet 500 mg PO BID 7 Days Qty: 14 0RF Continued (DME) blood sugar diagnostic Strip See Rx Instructions .Route Qty: 100 3RF Rx Instructions: Check Bs 4 times a day. (DME) lancets 31 gauge misc See Rx Instructions .Route Qty: 100 3RF Rx Instructions: Check BS 4 times a day. (DME) OneTouch Ultra Test Strip See Rx Instructions .Route Qty: 360 3RF Rx Instructions: test blood sugar 4 times day insulin glargine [Lantus Solostar U-100 Insulin] 100 unit/mL (3 mL) insulin pen 10 unit SUBCUT QAM Qty: 15 3RF Humira(CF) Pen 40 mg/0.4 mL pen injector kit See Rx Instructions SUBCUT .COMPLEX Qty: 2 5RF Rx Instructions: inject one - 40 mg/0.4 mL pen every 2 weeks SUBCUT (DME) pen needle, diabetic [BD Ultra-Fine Short Pen Needle] 31 gauge x 5/16 needle See Rx Instructions .Route Qty: 100 3RF Rx Instructions: As directed zolpidem 10 mg tablet 10 mg PO BEDTIME PRN (Reason: Sleep) Qty: 30 5RF ondansetron HCl 4 mg tablet See Rx Instructions .ROUTE .COMPLEX Qty: 30 11RF Dose Instruction: TAKE 1 TABLET BY MOUTH EVERY 6 HOURS FOR NAUSEA AND VOMITING Rx Instructions: TAKE 1 TABLET BY MOUTH EVERY 6 HOURS FOR NAUSEA AND VOMITING levothyroxine 112 mcg tablet 112 mcg PO QAM Qty: 90 3RF diclofenac sodium 75 mg tablet,delayed release (DR/EC) 75 mg PO Q12H PRN (Reason: moderate to severe pain as needed) Qty: 60 0RF Mounjaro 5 mg/0.5 mL pen injector 5 mg SUBCUT Q7D Qty: 2 0RF hydrocodone-acetaminophen 10-325 mg tablet 1 tab PO TID PRN (Reason: pain) 30 Days Qty: 90 0RF Repatha SureClick 140 mg/mL pen injector 14 mg SUBCUT Q14D nitroglycerin [Nitrostat] 0.4 mg Tablet, Sublingual 0.4 mg SUBLINGUAL Q5M PRN (Reason: Chest Pain) Rx Instructions: do not exceed 3 doses per episode Discontinued ranolazine 500 mg tablet extended release 12 hr 500 mg PO DAILY Qty: 90 3RF Discharge Order = DC NOW: Discharge Order (Routine); Ordered 11/19/25 Ordered By: Yenny Novoa Referrals: Matilde White NP [Nurse Practitioner, Cardiology] - 12/04/25 1:00 am William Chan MD [Primary Care Provider, Family Practice] - 11/27/25 9:20 am Discharge Diet: Cardiac Discharge Activity: Resume usual activity Patient Instructions: Ciprofloxacin (By mouth) (Cipro), Aspirin (By mouth), Ranolazine (By mouth) (Ranexa, Aspruzyo), Angina (DC), Chest Pain (DC), How to Stop Smoking (DC), Opioid Safety, Post Angiogram Home Care Instructions, Patient Portal & Olamide Instructions Discharge Attestations Time Spent in Discharge Care*: greater than 30 min Status at Discharge: Cognitive status at discharge: cognitively intact, Behavioral status at discharge: cooperative, Quality Metrics Clinical Quality Measures [ No reported AMI, CVA or VTE this stay] Coding Level of Care Code 89084 Diagnoses Unstable angina pectoris I20.0 Essential hypertension I10 CAD (coronary artery disease) I25.10 Venous insufficiency I87.2
--- NOTE | 2025-11-19 10:04 | P.PN_ITS ---
Subjective 2 Subjective: Patient s/p angiogram this AM. All grafts are patent. Has severe LAD disease past her VALLES to LAD graft touchdown not amendable to PCI. She is doing well this AM without chest discomfort. Vitals/I&O/Wt Last Vital Signs Temp 98.0 F 11/19/25 08:00 Pulse 81 11/19/25 08:00 Resp 15 11/19/25 08:00 BP 151/90 11/19/25 09:45 Pulse Ox 98 11/19/25 08:00 O2 Del Method Room Air 11/19/25 00:00 11/18/25 11/19/25 11/19/25 22:59 06:59 14:59 Intake Total 360.882 / 902.770 375.512 / 1278.282 102.72 / 102.72 Balance 360.882 / 902.770 375.512 / 1278.282 102.72 / 102.72 Weight last 48 hrs Weight 212 lb 6.4 oz Weight 212 lb 4.882 oz Weight 195 lb Weight 195 lb Physical Exam 2 Narrative: General: no acute distress Neck: No carotid bruit bilaterally Muskuloskeletal: Full ROM Respiratory: Normal respiratory effort, clear to auscultation bilaterally throughout all lung xavier, no use of accessory muscles Cardio: No JVD, regular rate, regular rhythm, S1 S2 normal, no murmurs, peripheral pulses 2+ radial palpated bilaterally GI: Normal to inspection, nondistended Extremities: Full ROM, normal, normal capillary refill, no cyanosis, trace edema bilateral lower extremities Neuro: Alert and oriented x4, no focal motor deficits Psych: Affect normal, denies suicidal ideation, mental status grossly normal Skin: telangiectasias bilateral lower extremities, right groin soft no s/s of hematoma Data 11/19/25 04:09 11/19/25 04:09 A&P Assessment and plan 1. Unstable angina pectoris: 2. Essential hypertension: 3. CAD (coronary artery disease): 4. Venous insufficiency: Plan: At this time, patient has no areas ammendable to PCI. All grafts are patent. Continue aspirin 81 mg with statin therapy. Uptitrate Ranexa to 500 mg BID. Continue agressive medical therapy. Patient may be discharged after bedrest is complete. Patient had angioseal. May f/u in the clinic in 2 weeks. PDMP PDMP Reviewed: Not Reviewed Attestations 2 Medical Necessity Statement*: Deferred to primary Coding Level of Care Code Acute Code for Chg Fwd Diagnoses Unstable angina pectoris I20.0 Essential hypertension I10 CAD (coronary artery disease) I25.10 Venous insufficiency I87.2
--- NOTE | 2025-11-19 10:10 | PC.CHAP ---
Pastoral Care Encounter/Spiritual Assessment Type of Contact [] Declined project financial analyst visit [] Patient/Family/Request visit [] Outpatient visit [] Follow-up visit [] Physician referral [] Code/Alert [x] Routine visit [] Staff referral [] Actively dying [] Patient sleeping [] Family support [] [] Out of room [] Palliative care [] [] Receiving care in room [] Pre-surgical visit [] Trauma [] Long length of stay [] ICU visit [] Other: Relational/Emotional Strength [x] Patient feels connected with others/family/visitors/staff [] Distress [] Loneliness/isolation [] Abandonment Spirituality of Patient [x] Person of Vilma [x] Attends Denominational of their Vilma [x] Believes in Prayer [x] Reads Bible or Protestant materials [] There are Spiritual issues to be addressed Sign Erector And Repairer Interventions [x] Prayer [x] Active listening [] Non-anxious presence [x] Spiritual/emotional support [] Crisis/trauma care [] Spiritual counseling [] Bereavement support [] Provided bereavement packet [] Provided Bible/devotional materials [] Provided toy/stuffed animal, coloring book to patient or family member [] Provided Communion [] Anointing/Taylor [] Salvation [x] Completed spiritual assessment [] Other: Impact on Illness or Injury [] Angry [] Fearful [] Anxious [] Often cries [] Exhaustion [] Unable to work [] Unable to attend muslim [] Unable to walk/stand [] Unable to read [] Unable to drive [] Unable to eat/drink [] Unable to sleep [] Unable to be with family [] Patient intubated [] Other: Summary Time spent with patient 5 min
--- NOTE | 2025-11-19 11:42 | PC.NURSE ---
Patient's dexcom read 188.
== END 2025-11-19 15:26 | disposition home or self-care (01) | DRG 287 ==
LOC: ER 20:31 → CSU 20:50
PROVIDERS: Emergency Medicine; Internal Medicine; Admitting Provider Family Medicine; Emergency Provider Emergency Medicine; PCP Family Medicine; Visit Provider Registered Nurse
PROC: B2111ZZ Fluoroscopy of Multiple Coronary Arteries using Low Osmolar Contrast (ICD-10-PCS; principal; 2025-11-19 07:00)
DX: I25.110 Atherosclerotic heart disease of native coronary artery with unstable angina pectoris (principal); N39.0 Urinary tract infection, site not specified; I10 Essential (primary) hypertension; E11.42 Type 2 diabetes mellitus with diabetic polyneuropathy; E11.59 Type 2 diabetes mellitus with other circulatory complications; M79.89 Other specified soft tissue disorders; E03.9 Hypothyroidism, unspecified; E78.2 Mixed hyperlipidemia; I78.1 Nevus, non-neoplastic; K21.9 Gastro-esophageal reflux disease without esophagitis; L40.0 Psoriasis vulgaris; M79.7 Fibromyalgia; Z79.4 Long term (current) use of insulin; Z79.82 Long term (current) use of aspirin; Z79.85 Long-term (current) use of injectable non-insulin antidiabetic drugs; Z87.440 Personal history of urinary (tract) infections; I25.2 Old myocardial infarction; Z85.43 Personal history of malignant neoplasm of ovary; Z90.710 Acquired absence of both cervix and uterus; Z90.49 Acquired absence of other specified parts of digestive tract; Z82.49 Family history of ischemic heart disease and other diseases of the circulatory system
CPT/HCPCS: 36415; 36416; 71045; 71275; 80053; 80061; 81001; 82962; 83036; 83735; 83880; 84443; 84484; 85025; 85378; 85610; 85730; 87077; 87086; 87186; 93005; 93459; 93971; 96372; 96374; 99152; 99153; 99285; C1760; C1769; C1887; C1894; G0269; J0360; J0744; J1644; J1815; J2250; J2270; J2405; J3010; J7030; J9999; Q0162; Q0163; Q9967